=== PATIENT | female | born 1960 | race Caucasian/White ===

== ENCOUNTER → 2019-11-26 13:02 | Outpatient (BNVA) | payer OTHER, SELFPAY | PROVIDERS: PCP Internal Medicine; Referring Provider Internal Medicine; Visit Provider Physician Assistant | DX: K90.49 Malabsorption due to intolerance, not elsewhere classified (principal); Z98.84 Bariatric surgery status | CPT/HCPCS: 99214 ==

== ENCOUNTER → 2019-12-17 11:17 | Outpatient (BNVA) | payer OTHER, SELFPAY | PROVIDERS: PCP Internal Medicine; Visit Provider Surgery | DX: M79.3 Panniculitis, unspecified (principal); Z98.84 Bariatric surgery status; Z91.041 Radiographic dye allergy status; Z88.8 Allergy status to other drugs, medicaments and biological substances | CPT/HCPCS: 99212 ==

== ENCOUNTER → 2019-12-28 08:03 | Outpatient (BNVA) | payer OTHER, SELFPAY | PROVIDERS: PCP Internal Medicine; Visit Provider Dietitian, Registered | DX: Z76.89 Persons encountering health services in other specified circumstances (principal) ==

== ENCOUNTER 2019-12-31 08:47 | Outpatient (REF) | payer OTHER, SELFPAY ==
[2019-12-31 10:07] LABS: MANUAL DIFF FLAG NO
[2019-12-31 10:22] LABS: Basophils Percent Auto 0.7 % (0-2); Eosinophils Absolute Auto 0.1 X10*3/uL (0.0-0.4); Eosinophils Percent Auto 1.7 % (0-4); Hematocrit 38.3 % (37-47); Hemoglobin 12.6 g/dl (12.0-16.0); Lymphocytes Absolute Auto 1.6 X10*3/uL (1.2-4.9); Mean Corpuscular HGB Conc 32.9 g/dl (31.0-35.0); Mean Corpuscular Hemoglobin 31.7 pg (27.0-33.0); Mean Corpuscular Volume 96.2 fL (80-98); Mean Platelet Volume 9.4 fL (9.4-12.3); Monocytes Absolute Auto 0.5 X10*3/uL (0.1-1.2); Monocytes Percent Auto 11.2 % (2-11); Neutrophils Absolute Auto 1.9 X10*3/uL (2.0-8.3); Neutrophils Percent Auto 47.4 % (45-73); Platelet Count 233 X10*3/uL (160-400); Red Blood Count 3.98 X10*6/uL (4.20-5.50); Red Cell Distribution Width 13.1 % (11.0-16.0); White Blood Count 4.1 X10*3/uL (4.8-10.8)
[2019-12-31 10:58] LABS: Alanine Aminotransferase 18 U/L (0-31); Albumin Level 4.4 g/dL (3.5-5.0); Alkaline Phosphatase 91 U/L (39-117); Anion Gap 12 (12-20); Aspartate Amino Transferase 20 U/L (5-31); Bilirubin Total 0.5 mg/dL (0.0-1.0); Blood Urea Nitrogen 16 mg/dL (9-16); C Reactive Protein 0.02 mg/dL (< or = 0.50); Calcium 8.7 mg/dL (8.4-10.2); Carbon Dioxide 29 mmol/L (22-29); Chloride 103 mmol/L (96-108); Estimated Glomerular Filt Rate > 60; Glucose Fasting 82 mg/dL (60-99); Iron 140 mcg/dL (30-160); Percent Iron Saturation 46 % (15-50); Potassium 4.5 mmol/l (3.3-5.1); Sodium 139 mmol/L (135-145); Total Iron Binding Capacity 306 mcg/dL (228-428); Total Protein 6.8 g/dL (6.5-8.0); Unsaturated Iron Binding 166 ug/dL
[2019-12-31 11:16] LABS: Ferritin 65 ng/mL (10-250); TSH reflex Free T4 0.34 mIU/mL (0.32-4.0); Vitamin D 25-OH Total 31.3 ng/mL (>30)
[2019-12-31 11:17] LABS: Cholesterol 268 mg/dL; HDL Cholesterol 97 mg/dL; LDL Cholesterol Calculated 144 mg/dl; Triglycerides 136 mg/dL
[2019-12-31 11:28] LABS: Estimated Average Glucose 100 mg/dL; Folate 15.3 ng/mL (> or = 4.0); Hemoglobin A1c % 5.1 %; Vitamin B12 491 pg/mL (200-900)
[2020-01-03 19:11] LABS: PTHI 60 pg/mL (14-64)
[2020-01-03 19:12] LABS: Insulin Level Total 3.9 uIU/mL; Zinc 60 mcg/dL (60-130)
[2020-01-04 14:22] LABS: Vitamin B1 14 nmol/L (8-30)
[2020-01-05 17:32] LABS: Vitamin A 62 mcg/dL (38-98)
== END 2019-12-31 08:48 | disposition home or self-care (01) ==
LOC: HO.LAB 08:47
PROVIDERS: PCP Internal Medicine; Visit Provider Physician Assistant
DX: K90.49 Malabsorption due to intolerance, not elsewhere classified (principal); E66.01 Morbid (severe) obesity due to excess calories; I95.1 Orthostatic hypotension
CPT/HCPCS: 36415; 80053; 80061; 82306; 82607; 82728; 82746; 83036; 83525; 83540; 83970; 84425; 84443; 84590; 84630; 85025; 86140

== ENCOUNTER → 2020-02-28 08:18 | Outpatient (BNVA) | payer OTHER, SELFPAY | PROVIDERS: PCP Internal Medicine; Visit Provider Physician Assistant | DX: K90.49 Malabsorption due to intolerance, not elsewhere classified (principal); Z98.84 Bariatric surgery status | CPT/HCPCS: Q3014 ==

== ENCOUNTER → 2020-03-09 13:45 | Outpatient (BNVA) | payer OTHER, SELFPAY | PROVIDERS: PCP Internal Medicine; Visit Provider Anesthesiology | DX: M96.1 Postlaminectomy syndrome, not elsewhere classified (principal); Z98.84 Bariatric surgery status | CPT/HCPCS: 99212 ==

== ENCOUNTER 2020-03-11 12:36 | Emergency (ER) | payer OTHER, SELFPAY ==
--- NOTE | 2020-03-11 12:48 | CT_ITS ---
EXAMINATION: CT HEAD, CT CERVICAL SPINE AND CT ABDOMEN PELVIS WITHOUT CONTRAST. CLINICAL INFORMATION: Status post and syncope with head injury COMPARISON: CT brain and CT cervical spine 09/09/2019. CT abdomen and pelvis 12/19/2018 TECHNIQUE: 5 minutes and axial and reformatted 2 mm thin sagittal and axial images of brain were obtained. Axial 3 mm thin and reformatted 2 mm thin images of cervical spine were obtained. Lastly axial 5 mm thin and reformatted 3 mm thin sagittal and coronal images of abdomen and pelvis were obtained without contrast. DLP [id number]. FINDINGS: BRAIN: There is no acute intra-axial, extra-axial bleed, masses, collection or midline shift. No acute infarct in evolution. The zarate to white matter differentiation is maintained normal. The lateral ventricles are symmetrical in size and configuration without enlargement. Bone windows reveal no calvarial abnormality. Bilateral paranasal sinuses and mastoid air cells are well-aerated. CERVICAL SPINE: On sagittal reconstructed images there is maintained cervical lordosis. There is loss of C4-C5 and C5-C6 disc heights with posterior spondylosis. The craniovertebral junction is normal. There is mild C1-C2 rotary subluxation but no fracture seen. The prevertebral and paravertebral soft tissues are normal. There is widely patent. The thyroid gland is enlarged with right lobe calcification. The lung apices are clear. ABDOMEN AND PELVIS: Minimal atelectatic changes seen in the left lung base. The heart size is normal. The liver is normal size, shape and density. The gallbladder has been surgically removed. No intrahepatic ductal dilatation seen. Visualized spleen, pancreas and bilateral adrenal glands are unremarkable. There are gastric sleeve surgical changes. The small bowel loops are nondilated. Large amount of stool seen throughout the colon without any significant distention. Both kidneys are normal size, shape and position. No enhancing lesion, cyst, radiopaque calculi or hydronephrosis seen. There is a surgical staple adjacent to the left kidney upper pole likely migrated stable following GI intervention. There is significant atherosclerotic calcification of abdominal aorta without aneurysmal dilatation. No retroperitoneal mass or lymphadenopathy seen. The bladder is significantly distended up to the umbilicus Imaging through the pelvis reveals anteverted uterus. No free fluid. No abnormal pelvic mass. No abnormal pelvic or inguinal lymph nodes. Bone windows reveal degenerative disc changes with vacuum disc phenomena L4-L5 disc level with mild ventral spondylosis. No lytic process. CT/CT cervical spine wo con IMPRESSION: No acute intracranial process seen. There is rotary subluxation of the C1-C2 alignment. Mild degenerative disc changes C3 -6 and C4-C5 disc levels. Thyromegaly Moderate to significant constipation without obstruction. Gastric sleeve surgery and cholecystectomy changes are seen. Enlarged urinary bladder extending to the umbilicus.
--- NOTE | 2020-03-11 12:48 | ECG_ITS ---
Test Reason : SYNCOPE Blood Pressure : / mmHG Vent. Rate : 062 BPM Atrial Rate : 062 BPM P-R Int : 156 ms QRS Dur : 084 ms QT Int : 410 ms P-R-T Axes : -09 -12 010 degrees QTc Int : 416 ms Normal sinus rhythm Normal ECG When compared with ECG of 10-OCT-2019 14:48, No significant change was found Referred By: Esther Allen Electronically Signed By:EUSEBIA GUERIN
[2020-03-11 12:51] VITALS: BP 176/83; PULSE 71; RESP 18; TEMP 37.2; O2SAT 97; BMI 20.2
--- NOTE | 2020-03-11 12:54 | PC.NURSE ---
Addendum entered by Eamon Mcintosh 03/11/20 18:07: pt abruptly throws head up and whole body falls to the ground protecting head, no apparent headstrike or loc. pt appears to be answering questions immediately s/p fall. Original Note: this rn reviewing security tape of pt syncopal episode in waiting room. pt appears to ambulate to first nurse, then registration w smooth steady gait, then as pt turns to waiting area following registration, pt abruptly throws head up and whole body falls to ground.
[2020-03-11 13:49] LABS: Basophils Percent Auto 0.8 % (0-2); Eosinophils Percent Auto 0.8 % (0-4); Hematocrit 36.7 % (37-47); Hemoglobin 12.5 g/dl (12.0-16.0); Imm Gran Abs Auto 0.01 X10*3/uL (0.00-0.03); Imm Gran Pct Auto 0.2 % (0.0-0.4); Lymphocytes Absolute Auto 2.2 X10*3/uL (1.2-4.9); Lymphocytes Percent Auto 42.8 % (20-40); MANUAL DIFF FLAG NO; Mean Corpuscular HGB Conc 34.1 g/dl (31.0-35.0); Mean Corpuscular Volume 93.9 fL (80-98); Mean Platelet Volume 9.2 fL (9.4-12.3); Monocytes Absolute Auto 0.6 X10*3/uL (0.1-1.2); Monocytes Percent Auto 11.5 % (2-11); Neutrophils Absolute Auto 2.3 X10*3/uL (2.0-8.3); Neutrophils Percent Auto 43.9 % (45-73); Platelet Count 215 X10*3/uL (160-400); Red Blood Count 3.91 X10*6/uL (4.20-5.50); Red Cell Distribution Width 12.7 % (11.0-16.0); White Blood Count 5.2 X10*3/uL (4.8-10.8)
[2020-03-11 13:55] LABS: Prothrombin Time 11.6 SEC (10.8-13.0)
[2020-03-11] MEDS: oxyCODONE HCl Immed Release 5 MG TABLET PO ×3 (14:02→18:39)
[2020-03-11] MEDS: 0.9 % Sodium Chloride 1,000 ML 999 ML IVCONT (14:05)
[2020-03-11 14:21] LABS: Alanine Aminotransferase 18 U/L (0-31); Albumin Level 4.5 g/dL (3.5-5.0); Alkaline Phosphatase 85 U/L (39-117); Anion Gap 14 (12-20); Aspartate Amino Transferase 20 U/L (5-31); Bilirubin Direct < 0.2 mg/dL (0.0-0.5); Bilirubin Total 0.4 mg/dL (0.0-1.0); Blood Urea Nitrogen 14 mg/dL (9-16); Calcium 9.1 mg/dL (8.4-10.2); Carbon Dioxide 28 mmol/L (22-29); Chloride 104 mmol/L (96-108); Creatinine Clr Calc Pharmacy 79.7; Estimated Glomerular Filt Rate > 60; Glucose Random 90 mg/dL (60-115); Magnesium 2.4 mg/dL (1.6-2.6); Potassium 4.1 mmol/l (3.3-5.1); Sodium 142 mmol/L (135-145)
--- NOTE | 2020-03-11 14:22 | ED_ITS ---
HPI - Syncope General Chief Complaint: Vaginal Bleeding Stated Complaint: vaginal bleeding Time Seen by Provider: 03/11/20 12:43 Source: patient Mode of arrival: wheelchair Limitations: no limitations History of Present Illness HPI narrative: 59yoF c PMHx orthostatic hypotension, syncope and collapse, herpes and depression who had a syncopal episode and collapse out in the waiting room when she was checking in for vaginal bleeding since last night. She did hit her head and had a few seconds of loss of consciousness. Although security called quickly and I ran out to the waiting room patient was laying down on her back moaning and groaning reporting that her head was hurting from this syncopy and her right lower quadrant of her abdomen since she started vaginal bleeding last night. Therefore I placed a C-collar on the patient and the patient was placed on a backboard and then lifted her onto a stretcher. We brought her into room 13 into the emergency department. I performed a neuro exam and patient is neuro intact bilaterally and distally on all 4 extremities. Is alert and oriented x3. She reports that she has a chronic history of syncopal episodes due to rapid weight loss in 2019 of over 100 lb therefore her doctors have told her that most likely the syncopal episodes are from the rapid weight loss. She reports she was checking in for vaginal bleeding with clots since last night and right suprapubic abdominal pain. At this time only is complaining of headache where she hit the back of her head out in the emergency department, and right suprapubic abdominal pain. Denies any dizziness, changes in vision, nausea/vomiting, chest pain or shortness of breath, palpitations, extremity ed angel luis, back pain, diarrhea or constipation or any other symptoms complaints or concerns at this time. Related Data Home Medications Medication Instructions Recorded Confirmed calcium citrate 315 mg 1 tab PO BID 11/20/19 03/09/20 calcium-vitamin D3 6.25 mcg (250 unit) tablet clonazepam 1 mg tablet 1 mg PO TID 11/20/19 03/09/20 fluticasone furoate 200 1 inh INHALATION DAILY 11/20/19 03/09/20 mcg-vilanterol 25 mcg/dose inhalation powder fluticasone propionate 50 1 spray INTRANASAL DAILY 11/20/19 03/09/20 mcg/actuation nasal spray,suspension gabapentin 600 mg tablet 600 mg PO BID 11/20/19 03/09/20 methylcellulose (with sugar) oral 1 tbsp PO DAILY 11/20/19 03/09/20 powder pantoprazole 40 mg tablet,delayed 40 mg PO DAILY 11/20/19 03/09/20 release paroxetine HCl 40 mg tablet 40 mg PO DAILY 11/20/19 03/09/20 quetiapine 200 mg tablet 100 mg PO BEDTIME tab 12/30/19 03/09/20 Previous Rx's Medication Instructions Recorded lidocaine 5 % topical patch 1 patch TOPICAL DAILY #30 ea 12/20/19 valacyclovir 500 mg tablet 500 mg PO BID #180 tab 12/23/19 mecobalamin (vitamin B12) 1,000 1,000 mcg PO DAILY #30 tab 01/27/20 mcg chewable tablet meloxicam 7.5 mg tablet 7.5 mg PO DAILY #90 tab 02/03/20 azithromycin 250 mg tablet See Rx Instructions PO .COMPLEX #6 03/06/20 tab fciwjhdagt-xpdhibotdsflw-shdpcffa 1 tab PO Q4H PRN #30 tab 03/06/20 50 mg-325 mg-40 mg tablet valacyclovir 1 gram tablet 1,000 mg PO Q8H #90 tab 03/06/20 oxycodone-acetaminophen 5 mg-325 1 tab PO TID PRN 30 Days #90 tab 03/09/20 mg tablet Allergies Allergy/AdvReac Type Severity Reaction Status Date / Time Iodinated Contrast Media Allergy Unknown HIVES Verified 12/30/19 09:29 [Iodinated Contrast Media - IV Dye] ketorolac [From Toradol] Allergy unknown Verified 12/30/19 09:29 Review of Systems Review of Systems: Constitutional : No Fever, No Chills, No Night Sweats, No Fatigue, No Malaise ENT/Mouth : No Ear Pain, No Nasal Congestion, No Sinus Pain, No sore throat, No Rhinorrhea Eyes: No Eye Pain, No Swelling, No Redness, No Foreign Body, No Discharge, No Vision Changes Cardiovascular : No Chest Pain, No SOB, No Dyspnea on Exertion, No Orthopnea, No Palpitations Respiratory : No Cough, No Sputum, No Wheezing, No Dyspnea Gastrointestinal : No Nausea, No Vomiting, No Diarrhea, No Constipation, + abdominal Pain, No Hematochezia, No Melena Genitourinary : + irregular bleeding, No Dysuria, No Urinary Frequency, No Urinary Incontinence, No Urgency, No Flank Pain Musculoskeletal : No joint pain, No Myalgias Skin : No lacerations Neuro : + Syncopy/Head injury/LOC, + headache, No Numbness, No Paresthesias, No Dizziness Yes all other systems are reviewed and are negative FOR[facility]LY [facility] Past Medical History Attestation statement: The following information was validated with the patient. Medical History Allergic rhinitis Asthma Bunion of left foot Chronic sinusitis Colon polyps Depression Herpes Hypotension Labral tear of right hip joint Malabsorption due to intolerance, not elsewhere classified Malabsorption due to intolerance, not elsewhere classified Migraines Neck pain Orthostatic hypotension Postconcussion syndrome Postlaminectomy syndrome Spinal stenosis Syncope and collapse Surgical History H/O colonoscopy H/O endoscopy H/O laminectomy History of appendectomy S/P bilateral foot surgery S/P laparoscopic sleeve gastrectomy S/P tonsillectomy Status post bariatric surgery Family History Family History Father No problems noted. Mother Cervical spine tumor Brother No problems noted. Brother No problems noted. Brother No problems noted. Brother No problems noted. Sister No problems noted. Son No problems noted. Daughter No problems noted. Social History Social History Alcohol intake: never Smoking Status: Never smoker Substance Use Type: Marijuana Advance Directives: No Advance Directives Information Provided: No Physical Exam Vital Signs: Vital Signs: Last Vital Signs Temp 98.9 F 03/11/20 12:51 Pulse 66 03/11/20 16:00 Resp 17 03/11/20 16:00 BP 176/83 H 03/11/20 12:51 Pulse Ox 97 03/11/20 16:00 Body Mass Index 20.2 Vital signs have been reviewed as normal and appeared to be correct. Blood pressure hypertensive. Heart rate normal. Respiration rate normal. Temperature normal. Oxygen saturation normal. Appearance: Alert. Oriented X3 despite syncopy in waiting room in ED. Otherwise No acute distress. Head: Patient tender to palpation of the septal aspect where she syncopized and hit her head in the waiting room otherwise Normal external exam. Normocephalic. Atraumatic. Able to rotate head bilaterally. No abrasion/laceration/hematoma/ecchymosis or foreign bodies noted at this time. Eyes: PERRLA. EOMI. No nystagmus noted. Conjunctiva and sclera normal. Eyelids n ormal. Corneal reflex normal. ENT: EAC normal. TM's Normal. No septal hematoma or hemotympanum noted. Hearing normal. Pharynx normal. Uvula midline. tongue midline. Moist mucous membranes. No trismus noted. No drooling noted. No muffled voice noted. Neck: C-collar in place. Normal inspection. Neck supple. No adenopathy. Thyroid Normal. No meningeal signs. No neck mass noted. CVS: Normal heart rate and rhythm. Heart sound normal. No murmurs noted. Pulses normal throughout. Respiratory: No respiratory distress. Painless inspiration. Breath sounds normal. No wheezes/rales/rhonchi noted. Chest nontender. No accessory muscle usage noted or decreased air movement noted. Abdomen: Soft and tender to palpation of right suprapubic aspect with guarding. Bowel sounds normal in all 4 quadrants. No distention noted. No organomegaly noted. No visible injury noted. Back: Full range of motion noted. Negative Capone's. Negative psoas. Negative obturator's. Negative Rovsing's. Skin: Skin warm and dry. Normal skin color. Normal skin turgor. No rashes/lesions/lacerations noted. Extremities: No lower extremity edema. Extremities exhibit normal range of motion. Extremities nontender. Able to shrug shoulders bilaterally and keep up against resistance. Neuro: Oriented X 3. No motor deficit. No sensory deficit. Reflexes normal. Moving all extremities. No focal motor deficits. Cranial nerves II-XI intact bilaterally. Facial strength normal. Normal cognition. Speech normal. Strength 5/5 throughout. No pronator drift. No tremor noted. No fasciculations noted. Muscle tone normal throughout. No asterixis noted. Fbfpjf-tb-xaut test normal. Heel to hernandez test normal. No rigidity noted. Course Course Course Narrative: 59yoF c PMHx orthostatic hypotension, syncope and collapse, herpes and depression who had a syncopal episode and collapse out in the waiting room when she was checking in for vaginal bleeding since last night. She did hit her head and had a few seconds of loss of consciousness. Patient was evaluated by myself. Is neuro intact. Alert and oriented x3. Immediately placed in a cervical collar. Placed on a backboard and placed on a stretcher brought into the emergency room for further evaluation and treatment. - On exam Is alert and oriented x3. No focal neuro deficits noted. Patient moving all extremities. Tender to palpation of the occipatal aspect of the scalp. Patient does not have any obvious deformities of the scalp. Tenderness to palpation of right suprapubic aspect. - Plan: Labs, EKG, CT scan of brain/cervical spine, CT scan of abdomen and pelvis with IV contrast then perform a vaginal exam once the patient's cervical spine is cleared. Provided Percocet and re-evaluate. Reevaluation(s) Reevaluation #1: - Labs WNL. CT scan of brain/cervical spine revealed chronic changes no acute processes noted. CT scan of abdomen and pelvis with IV contrast revealed moderate to significant constipation without obstruction. Gastric sleeve surgery and cholecystectomy changes are seen. In the report it is noted that there is a surgical staple adjacent to the left kidney upper pole likely migrated stable following GI intervention. I explained this to the pa tient she did not know about this therefore I printed out a copy of the CT scan results and gave it to the patient. Otherwise patient has a enlarged urinary bladder extending to the umbilicus this was prior to her urinating. - on exam patient does not have any active vaginal bleeding at this time. - will consult with the patient's GI specialist Dr. Caal for further evaluation and treatment. Time: 16:41 Reevaluation #2: - Still awaiting call from GI specialist Dr. Caal. Sign out to JEREMIAH Jones at this time. Time: 18:02 [facility] - Syncope Medical Records Attestation: I reviewed the patient's medical records. Lab Data Attestation: I reviewed the patient's lab results. Result diagrams: 03/11/20 13:44 03/11/20 13:44 Labs: Lab Results 03/11/20 03/11/20 03/11/20 Range/Units 13:44 13:44 13:44 WBC 5.2 (4.8-10.8) X10*3/uL RBC 3.91 L (4.20-5.50) X10*6/uL Hgb 12.5 (12.0-16.0) g/dl Hct 36.7 L (37-47) % MCV 93.9 (80-98) fL MCH 32.0 (27.0-33.0) pg MCHC 34.1 (31.0-35.0) g/dl RDW 12.7 (11.0-16.0) % Plt Count 215 (160-400) X10*3/uL MPV 9.2 L (9.4-12.3) fL Immature Gran % (Auto) 0.2 (0.0-0.4) % Neut % (Auto) 43.9 L (45-73) % Lymph % (Auto) 42.8 H (20-40) % [place] % (Auto) 11.5 H (2-11) % Eos % (Auto) 0.8 (0-4) % Baso % (Auto) 0.8 (0-2) % Lymph # (Auto) 2.2 (1.2-4.9) X10*3/uL [place] # (Auto) 0.6 (0.1-1.2) X10*3/uL Eos # (Auto) 0.0 (0.0-0.4) X10*3/uL Baso # (Auto) 0.0 (0.0-0.2) X10*3/uL Abs Immat Gran (auto) 0.01 (0.00-0.03) X10*3/uL Absolute Neuts (auto) 2.3 (2.0-8.3) X10*3/uL Absolute Nucleated RBC 0.000 (0.0-0.012) X10*3/uL Nucleated RBC % (auto) 0.0 (0.0-0.2) /100WBC PT 11.6 (10.8-13.0) SEC INR 1.0 (0.9-1.1) Sodium 142 (135-145) mmol/L Potassium 4.1 (3.3-5.1) mmol/l Chloride 104 (96-108) mmol/L Carbon Dioxide 28 (22-29) mmol/L Anion Gap 14 (12-20) BUN 14 (9-16) mg/dL Creatinine 0.71 (0.5-1.4) mg/dL Estim Creat Clear Calc 79.7 Estimated GFR > 60 Random Glucose 90 (60-115) mg/dL Calcium 9.1 (8.4-10.2) mg/dL Magnesium 2.4 (1.6-2.6) mg/dL Total Bilirubin 0.4 (0.0-1.0) mg/dL Direct Bilirubin < 0.2 (0.0-0.5) mg/dL AST 20 (5-31) U/L ALT 18 (0-31) U/L Alkaline Phosphatase 85 (39-117) U/L Troponin I High Sens (<3.5-17.0) ng/L Total Protein 7.0 (6.5-8.0) g/dL Albumin 4.5 (3.5-5.0) g/dL Urine Color Urine Appearance Urine pH (5.0-8.0) Ur Specific [place] (1.005-1.025) Urine Protein (NEG-TRACE) MG/DL Urine Glucose (UA) (NEG) MG/DL Urine Ketones (NEG) MG/DL Urine Blood (NEG) Urine Nitrite (NEG) Ur Leukocyte Esterase (NEG) Urine RBC (0) /HPF Urine WBC (0-4) /HPF Ur Squamous Epith Cells /LPF Urine Bacteria /LPF Coronavirus (PCR) (Negative) Influenza Type A (PCR) (Negative) Influenza Type B (PCR) (Negative) RSV RNA Qual (PCR) (Negative) 03/11/20 03/11/20 03/11/20 Range/Units 13:44 13:44 15:23 WBC (4.8-10.8) X10*3/uL RBC (4.20-5.50) X10*6/uL Hgb (12.0-16.0) g/dl Hct (37-47) % MCV (80-98) fL MCH (27.0-33.0) pg MCHC (31.0-35.0) g/dl RDW (11.0-16.0) % Plt Count (160-400) X10*3/uL MPV (9.4-12.3) fL Immature Gran % (Auto) (0.0-0.4) % Neut % (Auto) (45-73) % Lymph % (Auto) (20-40) % [place] % (Auto) (2-11) % Eos % (Auto) (0-4) % Baso % (Auto) (0-2) % Lymph # (Auto) (1.2-4.9) X10*3/uL [place] # (Auto) (0.1-1.2) X10*3/uL Eos # (Auto) (0.0-0.4) X10*3/uL Baso # (Auto) (0.0-0.2) X10*3/uL Abs Immat Gran (auto) (0.00-0.03) X10*3/uL Absolute Neuts (auto) (2.0-8.3) X10*3/uL Absolute Nucleated RBC (0.0-0.012) X10*3/uL Nucleated RBC % (auto) (0.0-0.2) /100WBC PT (10.8-13.0) SEC INR (0.9-1.1) Sodium (135-145) mmol/L Potassium (3.3-5.1) mmol/l Chloride (96-108) mmol/L Carbon Dioxide (22-29) mmol/L Anion Gap (12-20) BUN (9-16) mg/dL Creatinine (0.5-1.4) mg/dL Estim Creat Clear Calc Estimated GFR Random Glucose (60-115) mg/dL Calcium (8.4-10.2) mg/dL Magnesium (1.6-2.6) mg/dL Total Bilirubin (0.0-1.0) mg/dL Direct Bilirubin (0.0-0.5) mg/dL AST (5-31) U/L ALT (0-31) U/L Alkaline Phosphatase (39-117) U/L Troponin I High Sens < 3.5 (<3.5-17.0) ng/L Total Protein (6.5-8.0) g/dL Albumin (3.5-5.0) g/dL Urine Color STRAW Urine Appearance CLEAR Urine pH 7.0 (5.0-8.0) Ur Specific [place] <= 1.005 (1.005-1.025) Urine Protein NEG (NEG-TRACE) MG/DL Urine Glucose (UA) NEG (NEG) MG/DL Urine Ketones NEG (NEG) MG/DL Urine Blood 1+ H (NEG) Urine Nitrite NEG (NEG) Ur Leukocyte Esterase NEG (NEG) Urine RBC 0-2 (0) /HPF Urine WBC 0 (0-4) /HPF Ur Squamous Epith Cells NONE /LPF Urine Bacteria NONE /LPF Coronavirus (PCR) NEGATIVE (Negative) Influenza Type A (PCR) NEGATIVE (Negative) Influenza Type B (PCR) NEGATIVE (Negative) RSV RNA Qual (PCR) NEGATIVE (Negative) Imaging Data CT scan of brain/cervical spine/abdomen and pelvis: Attestation: I personally reviewed and interpreted this imaging study as follows: Radiologist's impression: FINDINGS: BRAIN: There is no acute intra-axial, extra-axial bleed, masses, collection or midline shift. No acute infarct in evolution. The zarate to white matter differentiation is maintained normal. The lateral ventricles are symmetrical in size and configuration without enlargement. Bone windows reveal no calvarial abnormality. Bilateral paranasal sinuses and mastoid air cells are well-aerated. CERVICAL SPINE: On sagittal reconstructed images there is maintained cervical lordosis. There is loss of C4-C5 and C5-C6 disc heights with posterior spondylosis. The craniovertebral junction is normal. There is mild C1-C2 rotary subluxation but no fracture seen. The prevertebral and paravertebral soft tissues are normal. There is widely patent. The thyroid gland is enlarged with right lobe calcification. The lung apices are clear. ABDOMEN AND PELVIS: Minimal atelectatic changes seen in the left lung base. The heart size is normal. The liver is normal size, shape and density. The gallbladder has been surgically removed. No intrahepatic ductal dilatation seen. Visualized spleen, pancreas and bilateral adrenal glands are unremarkable. There are gastric sleeve surgical changes. The small bowel loops are nondilated. Large amount of stool seen throughout the colon without any significant distention. Both kidneys are normal size, shape and position. No enhancing lesion, cyst, radiopaque calculi or hydronephrosis seen. There is a surgical staple adjacent to the left kidney upper pole likely migrated stable following GI intervention. There is significant atherosclerotic calcification of abdominal aorta without aneurysmal dilatation. No retroperitoneal mass or lymphadenopathy seen. The bladder is significantly distended up to the umbilicus Imaging through the pelvis reveals anteverted uterus. No free fluid. No abnormal pelvic mass. No abnormal pelvic or inguinal lymph nodes. Bone windows reveal degenerative disc changes with vacuum disc phenomena L4-L5 disc level with mild ventral spondylosis. No lytic process. CT/CT head/brain wo con IMPRESSION: No acute intracranial process seen. There is rotary subluxation of the C1-C2 alignment. Mild degenerative disc changes C3 -6 and C4-C5 disc levels. Thyromegaly Moderate to significant constipation without obstruction. Gastric sleeve surgery and cholecystectomy changes are seen. Enlarged urinary bladder extending to the umbilicus. ECG Data Attestation: I personally reviewed and interpreted this ECG as follows: ECG interpretation date: 03/11/20 ECG interpretation time: 13:07 Interpretation: Normal sinus rhythm with a ventricular rate of 62 with a normal NV interval normal QRS duration normal QT/QTC interval. No acute ischemic changes noted. Similar compared to prior 10/10/2019. Critical Care Time Critical Care Time Critical Care Time: Yes Total Critical Care Time: 60 Attestation: I personally attest to this time spent taking care of the patient Discharge Plan Discharge Clinical Impression: Syncope and collapse, Abnormal vaginal bleeding, Abnormal CT of the abdomen Prescriptions: No Action lidocaine 5 % adhesive patch,medicated 1 patch topical DAILY Qty: 30 RF: 6 valacyclovir 500 mg tablet 500 mg PO BID Qty: 180 RF: 3 mecobalamin (vitamin B12) 1,000 mcg tablet,chewable 1,000 mcg PO DAILY Qty: 30 RF: 5 meloxicam 7.5 mg tablet 7.5 mg PO DAILY Qty: 90 RF: 0 azithromycin 250 mg tablet See Rx Instructions PO .COMPLEX Qty: 6 RF: 0 valacyclovir [Valtrex] 1 gram tablet 1,000 mg PO Q8H Qty: 90 RF: 1 yffcjjdcsk-iwggshcglafog-pyeg 50-325-40 mg tablet 1 tab PO Q4H PRN (Reason: pain) Qty: 30 RF: 2 clonazepam 1 mg tablet 1 mg PO TID RF: 0 gabapentin 600 mg tablet 600 mg PO BID RF: 0 paroxetine HCl 40 mg tablet 40 mg PO DAILY RF: 0 fluticasone propionate 50 mcg/actuation spray,suspension 1 spray intranasal DAILY RF: 0 calcium citrate-vitamin D3 315 mg- 250 unit tablet 1 tab PO BID RF: 0 Citrucel (sucrose) Powder 1 tbsp PO DAILY RF: 0 pantoprazole 40 mg tablet,delayed release (DR/EC) 40 mg PO DAILY RF: 0 Breo Ellipta 200-25 mcg/dose blister with device 1 inh inhalation DAILY RF: 0 quetiapine 200 mg tablet 100 mg PO BEDTIME RF: 0 oxycodone-acetaminophen [Percocet] 5-325 mg tablet 1 tab PO TID PRN (Reason: pain) 30 Days Qty: 90 RF: 0
[2020-03-11 14:27] LABS: Troponin-I High Sensitivity < 3.5 ng/L (<3.5-17.0)
[2020-03-11 14:32] LABS: Influenza A PCR NEGATIVE (Negative); Influenza B PCR NEGATIVE (Negative); Resp Syncy Virus RNA Qual PCR NEGATIVE (Negative); SARS COV2 PCR INHOUSE NEGATIVE (Negative)
[2020-03-11] MEDS: diphenhydrAMINE HCL 50 MG/ML VIAL IVPUSH (14:36)
[2020-03-11] MEDS: iohexoL 350 MG/ML 100 ML INFUS..BTL IV (15:20)
[2020-03-11 15:46] LABS: Glucose Urine UA NEG (NEG); Leukocyte Esterase Urine NEG (NEG); Nitrite Urine NEG (NEG); Specific Gravity - Urine <= 1.005 (1.005-1.025); Urine Blood 1+ (NEG); Urine Ketones NEG (NEG); Urine Protein NEG (NEG-TRACE)
[2020-03-11 15:48] LABS: Appearance Urine CLEAR; Color Urine STRAW
[2020-03-11 15:55] LABS: RBC Urine 0-2 /HPF (0); WBC Urine 0 /HPF (0-4)
[2020-03-11 16:00] VITALS: PULSE 66; RESP 17; O2SAT 97
[2020-03-11] MEDS: Butalb/Acetamin/Caff 50/325/40 TABLET 2 TAB PO (16:02)
[2020-03-11 18:00] VITALS: BP 135/64; PULSE 64
[2020-03-11 18:26] VITALS: PULSE 64; O2SAT 97
[2020-03-11 18:28] VITALS: BP 135/64; PULSE 64
[2020-03-11 18:29] VITALS: BP 114/58; BP 99/54; PULSE 62; PULSE 68
== END 2020-03-11 18:57 | disposition home or self-care (01) ==
PROVIDERS: Physician Assistant Medical; Emergency Provider Internal Medicine; PCP Internal Medicine
DX: S06.9X9A Unspecified intracranial injury with loss of consciousness of unspecified duration, initial encounter (principal); R55 Syncope and collapse; M54.2 Cervicalgia; G44.309 Post-traumatic headache, unspecified, not intractable; N93.9 Abnormal uterine and vaginal bleeding, unspecified; R10.2 Pelvic and perineal pain; W01.190A Fall on same level from slipping, tripping and stumbling with subsequent striking against furniture, initial encounter; Y93.9 Activity, unspecified; Y92.009 Unspecified place in unspecified non-institutional (private) residence as the place of occurrence of the external cause; Y99.9 Unspecified external cause status; Z20.822 Contact with and (suspected) exposure to COVID-19; Z79.899 Other long term (current) drug therapy
CPT/HCPCS: 0241U; 36415; 70450; 72125; 74177; 80048; 80076; 81001; 83735; 84484; 85025; 85610; 93005; 96361; 96374; 99285; 99291; J1200; Q9967

== ENCOUNTER → 2020-03-14 09:47 | Outpatient (BNVA) | payer OTHER, SELFPAY | PROVIDERS: PCP Internal Medicine; Visit Provider Internal Medicine | DX: R55 Syncope and collapse (principal); I95.1 Orthostatic hypotension; Z98.84 Bariatric surgery status | CPT/HCPCS: 99212 ==

== ENCOUNTER 2020-03-17 08:25 | Outpatient (REF) | payer OTHER, SELFPAY ==
[2020-03-18 13:19] LABS: BV Int Neg Control Negative (Negative); BV Int Pos Control Positive (Positive)
[2020-03-19 02:17] LABS: C. trachomatis RNA TMA NOT DETECTED (NOT DETECTED); N. gonorrhoeae RNA TMA NOT DETECTED (NOT DETECTED)
[2020-03-22 06:02] LABS: HPV mRNA E6/E7 rflx Not Detected (Not Detected)
== END 2020-03-17 08:26 | disposition home or self-care (01) ==
LOC: HO.LAB 08:25
PROVIDERS: PCP Internal Medicine; Visit Provider Advanced Practice Midwife
DX: N93.9 Abnormal uterine and vaginal bleeding, unspecified (principal); N89.8 Other specified noninflammatory disorders of vagina; N84.1 Polyp of cervix uteri
CPT/HCPCS: 36415; 57500; 87480; 87491; 87510; 87591; 87624; 87660; 88142; 88305; 99212

== ENCOUNTER → 2020-03-21 08:59 | Outpatient (BNVA) | payer OTHER, SELFPAY | PROVIDERS: PCP Internal Medicine; Visit Provider Physician Assistant | DX: R21 Rash and other nonspecific skin eruption (principal); K90.49 Malabsorption due to intolerance, not elsewhere classified; Z98.84 Bariatric surgery status | CPT/HCPCS: 99212 ==

== ENCOUNTER → 2020-03-22 08:31 | Outpatient (BNVA) | payer OTHER, SELFPAY | PROVIDERS: PCP Internal Medicine; Visit Provider Nurse Practitioner Family | DX: M96.1 Postlaminectomy syndrome, not elsewhere classified (principal); Z79.899 Other long term (current) drug therapy | CPT/HCPCS: 99212 ==

== ENCOUNTER 2020-03-29 10:49 | Outpatient (REF) | payer OTHER, SELFPAY ==
--- NOTE | ~2020-03-29 | US_ITS ---
EXAMINATION: PELVIC ULTRASOUND CLINICAL INFORMATION: Abnormal bleeding COMPARISON: Previous exams most recent February 2018 TECHNIQUE: Transabdominal and transvaginal pelvic ultrasound was performed. Transvaginal exam was performed for better visualization of the uterus and ovaries. FINDINGS: The uterus is anteverted and measures 5.8 x 2.9 x 3.5 cm in dimension. No focal uterine lesion is seen. Endometrial thickness is normal measuring 0.2 cm. There are nabothian cysts in the cervix. The right ovary is seen transabdominally only and is normal appearing. The right ovary measures 1.8 x 1.4 x 1.6 cm. The left ovary is not seen. There is a small amount of fluid in the pelvis. US/US transvaginal IMPRESSION: Normal-appearing uterus. Normal thickness endometrium. Normal-appearing right ovary. Left ovary not seen.
--- NOTE | ~2020-03-29 | US_ITS ---
EXAMINATION: PELVIC ULTRASOUND CLINICAL INFORMATION: Abnormal bleeding COMPARISON: Previous exams most recent February 2018 TECHNIQUE: Transabdominal and transvaginal pelvic ultrasound was performed. Transvaginal exam was performed for better visualization of the uterus and ovaries. FINDINGS: The uterus is anteverted and measures 5.8 x 2.9 x 3.5 cm in dimension. No focal uterine lesion is seen. Endometrial thickness is normal measuring 0.2 cm. There are nabothian cysts in the cervix. The right ovary is seen transabdominally only and is normal appearing. The right ovary measures 1.8 x 1.4 x 1.6 cm. The left ovary is not seen. There is a small amount of fluid in the pelvis. US/US pelvic complete IMPRESSION: Normal-appearing uterus. Normal thickness endometrium. Normal-appearing right ovary. Left ovary not seen.
== END 2020-03-29 10:50 | disposition home or self-care (01) ==
LOC: HO.US 10:49
PROVIDERS: Visit Provider Advanced Practice Midwife
DX: N93.9 Abnormal uterine and vaginal bleeding, unspecified (principal)
CPT/HCPCS: 76830; 76856

== ENCOUNTER → 2020-04-11 08:09 | Outpatient (BNVA) | payer OTHER, SELFPAY | PROVIDERS: PCP Internal Medicine; Visit Provider Physician Assistant ==

== ENCOUNTER → 2020-04-12 11:36 | Outpatient (BNVA) | payer OTHER, SELFPAY | PROVIDERS: PCP Internal Medicine; Visit Provider Advanced Practice Midwife | DX: M79.3 Panniculitis, unspecified (principal); L98.7 Excessive and redundant skin and subcutaneous tissue; N93.9 Abnormal uterine and vaginal bleeding, unspecified; Z71.2 Person consulting for explanation of examination or test findings; Z79.899 Other long term (current) drug therapy | CPT/HCPCS: 99212; Q3014 ==

== ENCOUNTER 2020-04-15 12:34 | Outpatient (REF) | payer OTHER, SELFPAY ==
--- NOTE | ~2020-04-15 | MM_ITS ---
EXAMINATION: MM SCREENING DIGITAL BREAST TOMOSYNTHESIS, BILATERAL CLINICAL INFORMATION: Screening. Asymptomatic. The lifetime risk of breast cancer based on the Tyrer-Cuzick Model is 5%. COMPARISON: Mammography: 05/20/2018, outside mammography 09/20/2016, 09/19/2015 ([place]). TECHNIQUE: Digital breast tomosynthesis is performed in both the craniocaudal and mediolateral oblique views along with computer-aided detection (CAD). Synthesized 2D images are generated from the tomosynthesis. FINDINGS: There are scattered areas of fibroglandular density (ACR BI-RADS breast composition Category b). There are no significant masses, abnormal calcifications, or other abnormalities. Parenchymal pattern is similar to prior exams. The axilla and skin contours are unremarkable. MM/MM tomosynthesis screening BI IMPRESSION: No mammographic evidence of malignancy. ASSESSMENT: BI-RADS 1: Negative RECOMMENDATION: Routine annual mammography screening. This patient's information was entered into a reminder system with a target due date for their next mammogram.
== END 2020-04-15 12:35 | disposition home or self-care (01) ==
LOC: HO.MAMMO 12:34
PROVIDERS: Visit Provider Advanced Practice Midwife
DX: Z12.31 Encounter for screening mammogram for malignant neoplasm of breast (principal)
CPT/HCPCS: 77063; 77067

== ENCOUNTER → 2020-04-18 08:15 | Outpatient (BNVA) | payer OTHER, SELFPAY | PROVIDERS: PCP Internal Medicine; Visit Provider Dietitian, Registered ==

== ENCOUNTER → 2020-04-19 08:18 | Outpatient (BNVA) | payer OTHER, SELFPAY | PROVIDERS: PCP Internal Medicine; Visit Provider Nurse Practitioner Family | DX: M96.1 Postlaminectomy syndrome, not elsewhere classified (principal); Z79.899 Other long term (current) drug therapy | CPT/HCPCS: 99212 ==

== ENCOUNTER → 2020-05-19 08:01 | Outpatient (BNVA) | payer OTHER, SELFPAY | PROVIDERS: PCP Internal Medicine; Visit Provider Nurse Practitioner Family | DX: M96.1 Postlaminectomy syndrome, not elsewhere classified (principal) | CPT/HCPCS: 99212 ==

== ENCOUNTER → 2020-05-30 10:13 | Outpatient (BNVA) | payer OTHER, SELFPAY | PROVIDERS: PCP Internal Medicine; Visit Provider Surgery | DX: M79.3 Panniculitis, unspecified (principal) | CPT/HCPCS: Q3014 ==

== ENCOUNTER → 2020-06-06 08:01 | Outpatient (BNVA) | payer OTHER, SELFPAY | PROVIDERS: PCP Internal Medicine; Visit Provider Nurse Practitioner Family | DX: R55 Syncope and collapse (principal); I95.1 Orthostatic hypotension; Z98.84 Bariatric surgery status; M96.1 Postlaminectomy syndrome, not elsewhere classified | CPT/HCPCS: 99212 ==

== ENCOUNTER 2020-06-08 08:46 | Inpatient (IN) | payer OTHER, SELFPAY ==
[2020-06-01 09:46] VITALS: BMI 20.2
[2020-06-02 15:43] LABS: MANUAL DIFF FLAG NO
[2020-06-02 15:51] LABS: Basophils Percent Auto 0.6 % (0-2); Eosinophils Absolute Auto 0.1 X10*3/uL (0.0-0.4); Eosinophils Percent Auto 1.9 % (0-4); Hematocrit 38.4 % (37-47); Hemoglobin 12.8 g/dl (12.0-16.0); Imm Gran Abs Auto 0.02 X10*3/uL (0.00-0.03); Imm Gran Pct Auto 0.4 % (0.0-0.4); Lymphocytes Absolute Auto 2.6 X10*3/uL (1.2-4.9); Mean Corpuscular HGB Conc 33.3 g/dl (31.0-35.0); Mean Platelet Volume 9.5 fL (9.4-12.3); Monocytes Absolute Auto 0.5 X10*3/uL (0.1-1.2); Monocytes Percent Auto 8.7 % (2-11); Neutrophils Absolute Auto 1.9 X10*3/uL (2.0-8.3); Neutrophils Percent Auto 37.4 % (45-73); Platelet Count 229 X10*3/uL (160-400); Red Cell Distribution Width 12.1 % (11.0-16.0); White Blood Count 5.2 X10*3/uL (4.8-10.8)
[2020-06-02 15:52] LABS: Prothrombin Time 11.5 SEC (10.8-13.0)
[2020-06-02 15:54] LABS: Partial Thromboplastin Time 32.2 SEC (24.1-38.0)
[2020-06-02 16:10] LABS: Alanine Aminotransferase 16 U/L (0-31); Albumin Level 4.7 g/dL (3.5-5.0); Alkaline Phosphatase 82 U/L (39-117); Anion Gap 11 (12-20); Aspartate Amino Transferase 19 U/L (5-31); Bilirubin Total 0.3 mg/dL (0.0-1.0); Blood Urea Nitrogen 19 mg/dL (9-16); C Reactive Protein 0.02 mg/dL (< or = 0.50); Calcium 9.5 mg/dL (8.4-10.2); Carbon Dioxide 31 mmol/L (22-29); Chloride 104 mmol/L (96-108); Creatinine Clr Calc Pharmacy 76.6; Estimated Glomerular Filt Rate > 60; Glucose Random 96 mg/dL (60-115); Potassium 4.6 mmol/L (3.3-5.1); Sodium 141 mmol/L (135-145); Total Protein 7.1 g/dL (6.5-8.0)
--- NOTE | 2020-06-07 18:56 | MHC.SHP ---
Pre-Procedural Eval Section A The patient is an INPATIENT: Yes The History & Physical has been completed within 30 days and I have reviewed it.: Yes Section B Chief Complaint: panniculitis Details of Present Illness: panniculitis Relevant Family History (Specify if Yes): No Relevant Social History: None Present Medications: see Short Stay Collaborative assessment Medical History: No relevant PMH History of Previous Operations: Relevant previous surgery/procedure and date(s) (sleeve gastrectomy) Allergies: Allergies Allergy/AdvReac Type Severity Reaction Status Date / Time Iodinated Contrast Media Allergy Intermediate HIVES Verified 06/06/20 10:23 [Iodinated Contrast Media - IV Dye] ketorolac [From Toradol] Allergy Intermediate localized Verified 06/06/20 10:23 redness/swelling Review of Systems Sugical H&P ROS: Negative: Constitution, Cardiovascular, Respiratory, Neurological, Psychiatric, Hem-Onc, Allergic/Immunologic, Gastrointestinal, Genitourinary, Musculoskeletal, Integumentary, Endocrine and Eyes/Ears/Nose/Throat Exam Surgical H&P Exam: Normal: HEENT, Normal: Heart, Normal: Lungs, Normal: Extremities, Normal: Abdomen, Normal: Skin and Normal: Neurological Plan Diagnosis/Plan: Unchanged I have reviewed the history and physical and performed a pertinent physical examination on my patient. No changes have occurred unless specified.
[2020-06-08] VITALS (18 sets, daily range): BP systolic 94–161; BP diastolic 41–69; PULSE 64–114; RESP 11–20; TEMP 36.1–37.1; O2SAT 94–100
--- NOTE | 2020-06-08 09:07 | HO.ANESPROP2 ---
[facility] Active Problems Active Problems: All Active Problems (Updated 06/06/20 @ 11:02 by Honorio Byers MD) Panniculitis (Acute) Abnormal uterine bleeding (AUB) (Acute) Vaginal itching (Acute) Sacroiliitis (Acute) Open wound (Acute) Excess skin of thigh (Acute) Excess skin of arm (Acute) Panniculitis (Acute) Postconcussion syndrome (Acute) Spinal stenosis (Acute) Migraines (Acute) Labral tear of right hip joint (Acute) Hypotension (Acute) Herpes (Acute) Depression (Acute) Colon polyps (Acute) Chronic sinusitis (Acute) Asthma (Acute) Status post bariatric surgery (Acute) Postlaminectomy syndrome (Acute) Neck pain (Acute) Orthostatic hypotension (Acute) Syncope and collapse (Acute) Bunion of left foot (Acute) Malabsorption due to intolerance, not elsewhere classified (Acute) Malabsorption due to intolerance, not elsewhere classified (Acute) S/P laparoscopic sleeve gastrectomy (Acute) Past Medical History Medical History Allergic rhinitis Asthma Bunion of left foot Chronic sinusitis Colon polyps COVID-19 vaccine administered Depression Excess skin of arm Excess skin of thigh Herpes Hypotension Labral tear of right hip joint Malabsorption due to intolerance, not elsewhere classified Malabsorption due to intolerance, not elsewhere classified Migraines Neck pain Orthostatic hypotension Panniculitis Postconcussion syndrome Postlaminectomy syndrome Spinal stenosis Syncope and collapse Family History Family History Father No problems noted. Mother Cervical spine tumor Brother No problems noted. Brother No problems noted. Brother No problems noted. Brother No problems noted. Sister No problems noted. Son No problems noted. Daughter No problems noted. Surgical History Surgical History H/O colonoscopy H/O endoscopy H/O laminectomy History of appendectomy History of endometrial ablation History of hip surgery S/P bilateral foot surgery S/P laparoscopic sleeve gastrectomy S/P tonsillectomy Status post bariatric surgery Social History Social History Household Members: Spouse Housing: House Are you a primary pet care attendant to a significant other at home: No Do you presently have visiting nurse or other home services: No Alcohol intake: never Smoking Status: Never smoker Use of substances other than those prescribed or required for medical reasons: No Substance Use Type: Marijuana Substance Use Frequency: Weekly Have you been hit, kicked, punched, or otherwise hurt by someone within the past year? If so, by whom?: No Advance Directives Information Provided: No Recently lost weight without trying: No Meds Allergies Allergy/AdvReac Type Severity Reaction Status Date / Time Iodinated Contrast Media Allergy Intermediate HIVES Verified 06/08/20 09:09 [Iodinated Contrast Media - IV Dye] ketorolac [From Toradol] Allergy Intermediate localized Verified 06/08/20 09:09 redness/swelling Active Medications: Current Medications Generic Name Dose Route Start Last Admin Trade Name Freq PRN Reason Stop Dose Admin Lactated Ringer's 1,000 mls @ 20 mls/hr 06/07/20 14:30 Lr IVCONT .Q24H HAY Lactated Ringer's 1,000 mls @ 100 mls/hr 06/07/20 19:00 Lr IVCONT .Q10H [facility] Home Medications Medication Instructions Recorded Confirmed Last Taken Type calcium citrate 315 mg 1 tab PO BID 11/20/19 06/06/20 Unknown History calcium-vitamin D3 6.25 mcg (250 unit) tablet clonazepam 1 mg tablet 1 mg PO TID 11/20/19 06/06/20 06/08/20 History methylcellulose (with sugar) oral 1 tbsp PO DAILY 11/20/19 06/06/20 Unknown History powder paroxetine HCl 40 mg tablet 40 mg PO BEDTIME 11/20/19 06/06/20 Unknown History quetiapine 100 mg tablet 100 mg PO BEDTIME 03/14/20 06/06/20 Unknown History gabapentin 600 mg tablet 1,200 mg PO TID tab 04/19/20 06/06/20 Unknown History paroxetine HCl 10 mg PO BEDTIME 06/01/20 06/06/20 Unknown History Exam Exam Date and Time: June 08, 202007 Height,Weight and Vital Signs: Height 5 ft 7 in Weight 58.513 kg Pertinent Lab Results Pertinent Lab Results: Laboratory Tests 06/02/20 06/02/20 06/02/20 15:30 15:30 15:30 WBC 5.2 RBC 4.00 L Hgb 12.8 Hct 38.4 MCV 96.0 MCH 32.0 MCHC 33.3 RDW 12.1 Plt Count 229 MPV 9.5 Immature Gran % (Auto) 0.4 Neut % (Auto) 37.4 L Lymph % (Auto) 51.0 H [place] % (Auto) 8.7 Eos % (Auto) 1.9 Baso % (Auto) 0.6 Lymph # (Auto) 2.6 [place] # (Auto) 0.5 Eos # (Auto) 0.1 Baso # (Auto) 0.0 Abs Immat Gran (auto) 0.02 Absolute Neuts (auto) 1.9 L Absolute Nucleated RBC 0.000 Nucleated RBC % (auto) 0.0 PT 11.5 INR 1.0 APTT 32.2 Sodium 141 Potassium 4.6 Chloride 104 Carbon Dioxide 31 H Anion Gap 11 L BUN 19 H Creatinine 0.73 Estim Creat Clear Calc 76.6 Estimated GFR > 60 Random Glucose 96 Calcium 9.5 Total Bilirubin 0.3 AST 19 ALT 16 Alkaline Phosphatase 82 C-Reactive Protein 0.02 Total Protein 7.1 Albumin 4.7 Blood Type Antibody Screen 06/02/20 15:30 WBC RBC Hgb Hct MCV MCH MCHC RDW Plt Count MPV Immature Gran % (Auto) Neut % (Auto) Lymph % (Auto) [place] % (Auto) Eos % (Auto) Baso % (Auto) Lymph # (Auto) [place] # (Auto) Eos # (Auto) Baso # (Auto) Abs Immat Gran (auto) Absolute Neuts (auto) Absolute Nucleated RBC Nucleated RBC % (auto) PT INR APTT Sodium Potassium Chloride Carbon Dioxide Anion Gap BUN Creatinine Estim Creat Clear Calc Estimated GFR Random Glucose Calcium Total Bilirubin AST ALT Alkaline Phosphatase C-Reactive Protein Total Protein Albumin Blood Type B Positive Antibody Screen NEGATIVE Airway Mallampati Class: III (Small narrow mouth) TM Dist: >3cm Neck ROM: Full Loose/Missing/Broken Teeth: No Heart: RRR Lungs: CTA Assessment and Plan Assessment Anesthesia Assessment: Anesthesia Plan Discussed and Chart Reviewed Final Anesthetic Review NPO: Yes ASA Class: II Final Preanesthetic Review: Meds/Allgs Chart Reviewed, Consent Obtained/Reviewed and Anes Risks/Benef Reviewed Patient Risk: Low Procedure Risk: Intermediate Anesthetic Plan Anesthetic Plan: GA Disposition: Standard PACU
[2020-06-08] MEDS: Lactated Ringers 1,000 ML 100 ML IVCONT ×2 (09:43→17:16)
[2020-06-08] MEDS: Lactated Ringers 1,000 ML 20 ML IVCONT (09:43)
[2020-06-08 09:52] LABS: COVID-19 Test Negative (Negative)
--- NOTE | 2020-06-08 11:13 | PM.PNGS ---
Subjective Subjective Date of Service: 06/09/20 Interval history: Patient has mild incisional pain. Is tolerating liquid diet. All dressings were taken down and flaps/umbilicus appear viable without evidence of erythema, discharge or necrosis Physical Exam Vital Signs: Vital Signs: Last Vital Signs Temp 97.9 F 06/08/20 09:19 Pulse 98 06/08/20 09:19 Resp 18 06/08/20 09:19 BP 117/41 L 06/08/20 09:19 Pulse Ox 98 06/08/20 09:19 Body Mass Index 20.2 GI: Inspection: Yes normal to inspection, Yes incision (clean, dry and intact) and Yes other (NITHIN with serosanguinous fluid) Extrem: Right lower extremity: normal to inspection (no calf tenderness) Left lower extremity: normal to inspection (no calf tenderness) Progress Note: A&P Assessment and plan (1) S/P panniculectomy: Status: Acute Assessment and Plan: 60 year old female was admitted 06/08/2020 with panniculitis. Problem 1: s/p panniculectomy with umbilical transposition and bilateral subcutaneous fat flaps Status: Doing well Plan: Check am labs, If OK, ambulate, d/c Rajput will continue phase 1 bariatric diet and discharge later today. (2) Malabsorption due to intolerance, not elsewhere classified: Status: Acute (3) S/P laparoscopic sleeve gastrectomy: Status: Acute (4) Panniculitis: Status: Acute Fall Risk Details Current Medications: Current Medications Generic Name Dose Route Start Last Admin Trade Name Freq PRN Reason Stop Dose Admin Lactated Ringer's 1,000 mls @ 20 mls/hr 06/07/20 14:30 06/08/20 09:43 Lr IVCONT 20 mls/hr .Q24H HAY Administration Lactated Ringer's 1,000 mls @ 100 mls/hr 06/07/20 19:00 06/08/20 09:43 Lr IVCONT 100 mls/hr .Q10H HAY Administration Time Spent With Patient Time: Total time spent is greater than 50% in coordination of care (as documented) at patient's floor/unit and/or counseling patient: Time with patient: less than 15 minutes
--- NOTE | 2020-06-08 11:19 | P.BOP_ITS ---
Brief Operative Note Date of Service: 06/08/20 Pre-op diagnosis: Panniculitis Post-op diagnosis: same Procedure: PROCEDURE: Panniculectomy with umbilical transposition and omental flap INDICATION: This a 60 year old female who underwent laparoscopic sleeve gastrectomy on 06/26/2018. She had an excellent result achieving a BMI of 20.2 kg/m2 with a total weight loss of 112lbs, or 46.47% of her TBWL. As a result, she has developed panniculitis which has not resolved despite continuous use of clotrimazole ointment as well as skin irritation and intetrigo in both upper arms. On exam she has extreme skin laxity due to massive weight loss and age with the abdominal pannus completely hiding the genitalia. Panniculectomy was recommended. We discussed the two options for the panniculectomy of using a combined vertical and horizontal incisions or just a horizontal (bikini) incision. It was my recommendation to do only horizontal incision based on her body habitus and skin laxity. The patient agreed with this. Risks and complications were discussed with the patient including bleeding, infection, umbilical loss, flap necrosis, asymmetry, dehiscence, seroma, VTE. The patient understood the risks and was in agreement to proceed with surgery. PROCEDURE: The incisions were appropriately marked at the preop area with the patient standing and laying down. After induction of general anesthesia, a Rajput catheter and pneumatic compression devices were placed. The patient was prepped and draped in the usual sterile manner and the incisions were marked again and confirmed. In similar fashion both upper arms were also marked when the patient was standing. The skin was infiltrated with lidocaine and epinephrine. The #10 blade scalpel was used for the large incisions and the #15 blade scalpel for the umbilicus. Cautery was used to divide the subcutaneous tissues until the fascia was identified. Then I used the Thunderbeat (Olympus) to separate the pannus from the fascia. The inferior incision was made initially and I mobilized the flap for a several centimeters cephalad to the umbilicus. The umbilicus was incised circumferentially and detached from the surrounding tissues all the way to the fascia while its stalk was preserved. With the patient in reflex position I confirmed that the skin flaps were appropriate and would allow for the tissues to come together with reasonable tension. At that point a horizontal incision was made 4 cm above the umbilicus. #10 blade was used for the skin, cautery for the dermis and the Thunderbeat for the remaining tissues. An omental flap was raised from the upper flap in order to fill the space under the skin and support the closure of the two flaps. In addition the inferior flap was mobilized caudally for a few centimeters to create a space for the omental flap as well as relieve tension from the closure. A circumferential incision was made at the area where the umbilicus would be re-implanted. The umbilicus was appropriately oriented and was delivered through the defect and was secured in place with a Jerome. No bleeding was noted anywhere. One NITHIN drain was placed from the right corner of the horizontal incision across the wound and was secured in place with a silk suture. The omental flap was secured under the inferior flap with several interrupted 3.0 Monocryl sutures. The two flaps were brought together and were attached at the midline of the horizontal incision with a #3.0 Monocryl suture. At that point the umbilicus was properly oriented and was re-approximated to the skin with 8 interrupted 3.0 Monocryl sutures. In a similar fashion the skin flaps were re-approximated with multiple 3.0 Monocryl sutures. The skin was closed in all incisions and umbilicus with 4.0 Monocryl sutures. Steri-strips, xeroform gauzes and gauzes were used to cover the incisions. An abdominal binder was also placed. The was awaken and was transferred to the recover room in a stable condition. I was present and performed the entire procedure. Felix was the assistant food service director. Enrique Caal MD, PhD, FACS Surgeon: Pepe Caal MD Surgeon: Pepe Caal MD Anesthesia: GETA and local Oriental Rug Repairer: Cathy Washington Estimated blood loss (mL): 10 IV fluids (mL): 1,500 Urine output (mL): 500 Pathology: other (abdominal pannus) Condition: stable Disposition: PACU
--- NOTE | 2020-06-08 14:33 | P.DS_ITS ---
DS: Providers Provider Date of Service: 06/13/20 Date of admission: 06/08/20 08:46 Primary care physician: Corinne Figueroa MD DS: Diagnosis Discharge Diagnosis (1) S/P panniculectomy: Status: Acute (2) Malabsorption due to intolerance, not elsewhere classified: Status: Acute (3) S/P laparoscopic sleeve gastrectomy: Status: Acute (4) Panniculitis: Status: Acute DS: Medications Discharge Medications Home Medications: Home Medications Medication Instructions Recorded Confirmed calcium citrate 315 mg 1 tab PO BID 11/20/19 06/06/20 calcium-vitamin D3 6.25 mcg (250 unit) tablet clonazepam 1 mg tablet 1 mg PO TID 11/20/19 06/06/20 methylcellulose (with sugar) oral 1 tbsp PO DAILY 11/20/19 06/06/20 powder paroxetine HCl 40 mg tablet 40 mg PO BEDTIME 11/20/19 06/06/20 quetiapine 100 mg tablet 100 mg PO BEDTIME 03/14/20 06/06/20 gabapentin 600 mg tablet 1,200 mg PO TID tab 04/19/20 06/06/20 paroxetine HCl 10 mg PO BEDTIME 06/01/20 06/06/20 Previous Rx's Medication Instructions Recorded lidocaine 5 % topical patch 1 patch TOPICAL DAILY #30 ea 12/20/19 mecobalamin (vitamin B12) 1,000 1,000 mcg PO DAILY #30 tab 01/27/20 mcg chewable tablet fluticasone propionate 50 1 spray INTRANASAL DAILY #16 g 03/16/20 mcg/actuation nasal spray,suspension fluconazole 150 mg tablet 150 mg PO ONCE PRN 1 Days #1 tab 03/17/20 naloxone 4 mg/actuation nasal spray 4 mg INTRANASAL Q2M PRN #2 ea 03/22/20 clotrimazole 1 % topical cream 1 appl TOPICAL BID #45 g 04/12/20 meloxicam 7.5 mg tablet 7.5 mg PO DAILY #90 tab 05/03/20 valacyclovir 1 gram tablet 1,000 mg PO Q8H #90 tab 05/03/20 romxlbadbl-dbiqspndcmeoa-uleoebzs 1 tab PO Q4H PRN #30 tab 05/15/20 50 mg-325 mg-40 mg tablet bismuth tribrom-petrolatum,wh 1 X #200 ea 05/30/20 8 bandage cephalexin 500 mg capsule 500 mg PO Q12H #30 cap 05/30/20 fluticasone furoate 200 1 inh INHALATION DAILY #60 ea 05/30/20 mcg-vilanterol 25 mcg/dose inhalation powder gabapentin 600 mg tablet 600 mg PO BID #180 tab 05/30/20 ondansetron HCl 4 mg tablet 4 mg PO Q12H #20 tab 05/30/20 oxycodone-acetaminophen 5 mg-325 1 tab PO TID 30 Days #90 tab 06/06/20 mg tablet DS: Summary Time Spent with Patient Time attestation: DISCHARGE SUMMARY ADMITTING DIAGNOSIS: panniculitis, s/p lap sleeve gastrectomy DISCHARGE DIAGNOSIS: The same. PAST SURGICAL HISTORY: Lap PROCEDURE: Panniculectomy. HISTORY OF PRESENT ILLNESS: The patient is a 60 year-old woman with a BMI of 20.2 kg/m2 and associated co- morbidities as described previous. The patient had a laparoscopic sleeve gastrectomy on June 19, 2018 and has lost a total of 112 lbs, or 46.47% of her initial weight and her BMI reduced to 20.2 kg/m2 from 37.7 kg/m2. As a result of the massive weight loss she developed a large abdominal pannus and persistent panniculitis recalcitrant to medical treatment. The patient was electively scheduled for panniculectomy. Risks and complications of the surgery were discussed with the patient in advance, particularly the possibility of , pulmonary embolism, skin necrosis, loss of umbilicus, flap necrosis, wound dehiscence, flap asymmetry, bleeding requiring transfusion. The patient understood all the risks and was in agreement with the surgical plan. On postoperative day #1 the patient was started on Phase 3 bariatric diet. The Rajput was discontinued. She was allowed to ambulate and she had no dizziness. During the first day, the patient did fairly well, having some incisional pain, but able to ambulate adequately and to tolerate liquids well. All dressings were taken down and the all incisions were inspected. There was no evidence of infection or bleeding or significant discharge. All flaps and umbilicus were viable and there was no dehiscence. NITHIN drains had minimal output with serosanguinous fluid. Since the patient is doing well, we decided that the patient was ready to be discharged. The patient was given instructions to follow-up with me next week and to call my office for any fever over 101, persistent abdominal pain, nausea, vomiting, and symptoms of DVT such as calf tenderness, or leg swelling, or pulmonary embolism such as chest pain or shortness of breath. The patient was also instructed to drink 40-60 ounces of liquids per day using the 1-ounce cups and start on 3 Pure protein shakes per day. The patient was given prescription for Tylenol for pain, Zofran prn for nausea and a 10-day course of Keflex twice a day. The patient was encouraged to ambulate and use the incentive spirometer. However it was strongly recommended to do so with assistance and avoid any abdominal straining for at least one month. The patient was allowed only to do sponge baths, and encouraged to use the recliner at home and not the bed. All of these instructions were given to the patient personally. All questions were answered and the patient understood all instructions. The instructions were given to the patient in print as well. Total time spent providing and/or coordinating discharge services: 15 minutes Discharge coordination time: Less than 30 minutes Physical Exam Vital Signs: Vital Signs: Last Vital Signs Temp 97.9 F 06/08/20 09:19 Pulse 98 06/08/20 09:19 Resp 18 06/08/20 09:19 BP 117/41 L 06/08/20 09:19 Pulse Ox 98 06/08/20 09:19 Body Mass Index 20.2 DS: Data Data Completed and Pending Pending studies at discharge: Pending at discharge 06/08/20 13:03 Surgical [PTH] Routine Labs on day of discharge: Laboratory Results - last 24 hr 06/08/20 08:59 COVID-19 (PIETER) Negative COVID-19 Clin Com See Note Discharge Plan Discharge Anticipated Discharge Date/Time: 06/09/20 14:29 Patient Disposition: Home Health Service Discharge Diagnosis: POD # 1 s/p panniculectomy Referrals: [facility] [Outside] - 1 Week Corinne Figueroa MD [Primary Care Provider] - 1 Week Discharge Medications: Continued lidocaine 5 % adhesive patch,medicated 1 patch topical DAILY Qty: 30 RF: 6 mecobalamin (vitamin B12) 1,000 mcg tablet,chewable 1,000 mcg PO DAILY Qty: 30 RF: 5 fluticasone propionate 50 mcg/actuation spray,suspension 1 spray intranasal DAILY Qty: 16 RF: 3 valacyclovir [Valtrex] 1 gram tablet 1,000 mg PO Q8H Qty: 90 RF: 1 tzesrfettq-vjfaliqxdhupd-yksq 50-325-40 mg tablet 1 tab PO Q4H PRN (Reason: pain) Qty: 30 RF: 2 Breo Ellipta 200-25 mcg/dose blister with device 1 inh inhalation DAILY Qty: 60 RF: 6 gabapentin 600 mg tablet 600 mg PO BID Qty: 180 RF: 3 paroxetine HCl 10 mg Tablet 10 mg PO BEDTIME RF: 0 clonazepam 1 mg tablet 1 mg PO TID RF: 0 paroxetine HCl 40 mg tablet 40 mg PO BEDTIME RF: 0 calcium citrate-vitamin D3 315 mg- 250 unit tablet 1 tab PO BID RF: 0 Citrucel (sucrose) Powder 1 tbsp PO DAILY RF: 0 Narcan 4 mg/actuation spray,non-aerosol 4 mg intranasal Q2M PRN (Reason: opioid overdose) Qty: 2 RF: 0 gabapentin 600 mg tablet 1,200 mg PO TID RF: 0 ondansetron HCl [Zofran] 4 mg tablet 4 mg PO Q12H Qty: 20 RF: 0 cephalexin 500 mg capsule 500 mg PO Q12H Qty: 30 RF: 2 (DME) Xeroform Petrolatum Dressing 1 X 8 bandage See Rx Instructions .ROUTE .MEDSUPPLY Qty: 200 RF: 1 oxycodone-acetaminophen [Percocet] 5-325 mg tablet 1 tab PO TID 30 Days Qty: 90 RF: 0 quetiapine 100 mg tablet 100 mg PO BEDTIME RF: 0 Held meloxicam 7.5 mg tablet 7.5 mg PO DAILY Qty: 90 RF: 3 Hold Instructions: Discuss restart date with Dr Caal Discontinued fluconazole [Diflucan] 150 mg tablet 150 mg PO ONCE PRN (Reason: personal) 1 Days Qty: 1 RF: 0 clotrimazole 1 % cream 1 appl topical BID Qty: 45 RF: 1 Discharge Orders: Discharge Order (Routine); Ordered 06/09/20 Ordered By: Pepe Caal Diet: other Activity on Discharge: Rest with bed elevated Stand Alone Forms: Patient Portal Discharge page Activity Restrictions/Additional Instructions: 1) Record drain output for all 24 hour periods on drain output sheet. Bring sheet at the next office visit 2) Start Keflex antibiotic 3) No showers. Only sponge baths 4) Avoid any tension on the abdomen and always have help getting up. Use your arms to push off from chair/bed. 5) Take 1 tab of Colace and one tablespoon of Metamucil daily 6) Diet: 2 Pure protein shakes (1/2 scoop in water) and 2 Pure protein bars. Once you move your bowels, change to 2 shakes, one bar and one meal 7) Wear binder at all times 8) Change dressings daily and send pictures to Dr. Caal. Replace loose steri-strips and xeroform gauze along the incisions and umbilicus. 9) Supplies needed: ABD pads, 4x4 dressings, xeroform gauze, 1/2'' steri-strips, paper tape. You will need to use several of the above supplies on a daily basis. Care Plan Goals: No further panniculitis Health Concerns: panniculitis Plan of Treatment: see discharge instructions Assessment: stable POD # 1 Discharge Date/Time: 06/09/20 12:07
--- NOTE | 2020-06-08 14:36 | P.F2F_ITS ---
Service Date Service Date: 06/08/20 Reasons for Services Homebound: Leaving the home is medically contraindicated at this time without the asist of a device and/or another person due th the listed conditions above and below. Certification: Based on the above findings, I certify that this patient is confined to the home and needs intermittent mcfp care, NITHIN drain management, physical therapy and/or, or continues to need occupational therapy. The patient is under my care, and I have initiated the establishment of the plan of care. The patient will be followed by a physician who will periodically rev iew the plan of care.
[2020-06-08] MEDS: HYDROmorphone HCl 0.5 MG/0.5 ML SYRINGE 0.25 MG IVPUSH ×3 (14:49→23:35)
[2020-06-08] MEDS: oxyCODONE HCl Immed Release 5 MG TABLET 10 MG PO (14:52)
[2020-06-08] MEDS: HYDROmorphone HCl 0.5 MG/0.5 ML SYRINGE IVPUSH (15:32)
[2020-06-08] MEDS: clonazePAM 1 MG TABLET PO ×2 (17:16→21:01)
[2020-06-08] MEDS: ceFAZolin Sodium/Dextrose,Iso 2 GM/50 ML PIGGYBACK IV (19:09)
[2020-06-08] MEDS: PARoxetine HCL 40 MG TABLET PO (21:01)
[2020-06-08] MEDS: PARoxetine HCL 10 MG TABLET PO (21:01)
[2020-06-08] MEDS: Gabapentin 600 MG TABLET PO (21:01)
[2020-06-08] MEDS: QUEtiapine Fumarate 100 MG TABLET PO (21:01)
[2020-06-09] MEDS: ondansetron HCL 4 MG/2 ML VIAL IVPUSH ×2 (00:50→08:11)
[2020-06-09] MEDS: Lactated Ringers 1,000 ML 100 ML IVCONT (02:55)
[2020-06-09 03:43] VITALS: BP 105/49; PULSE 78; RESP 20; TEMP 36.4; O2SAT 96
[2020-06-09] MEDS: HYDROmorphone HCl 0.5 MG/0.5 ML SYRINGE 0.25 MG IVPUSH ×2 (03:50→08:30)
[2020-06-09 04:56] LABS: MANUAL DIFF FLAG NO
[2020-06-09 04:58] LABS: Basophils Percent Auto 0.4 % (0-2); Eosinophils Absolute Auto 0.1 X10*3/uL (0.0-0.4); Eosinophils Percent Auto 1.1 % (0-4); Hematocrit 32.9 % (37-47); Hemoglobin 11.2 g/dl (12.0-16.0); Imm Gran Abs Auto 0.01 X10*3/uL (0.00-0.03); Imm Gran Pct Auto 0.2 % (0.0-0.4); Lymphocytes Absolute Auto 1.6 X10*3/uL (1.2-4.9); Lymphocytes Percent Auto 29.9 % (20-40); Mean Corpuscular Volume 97.1 fL (80-98); Mean Platelet Volume 9.6 fL (9.4-12.3); Monocytes Absolute Auto 0.6 X10*3/uL (0.1-1.2); Monocytes Percent Auto 11.2 % (2-11); Neutrophils Absolute Auto 3.1 X10*3/uL (2.0-8.3); Neutrophils Percent Auto 57.2 % (45-73); Platelet Count 159 X10*3/uL (160-400); Red Blood Count 3.39 X10*6/uL (4.20-5.50); Red Cell Distribution Width 12.2 % (11.0-16.0); White Blood Count 5.4 X10*3/uL (4.8-10.8)
[2020-06-09 05:24] LABS: Anion Gap 12 (12-20); Blood Urea Nitrogen 12 mg/dL (9-16); Carbon Dioxide 30 mmol/L (22-29); Chloride 104 mmol/L (96-108); Creatinine Clr Calc Pharmacy 93.2; Estimated Glomerular Filt Rate > 60; Glucose Random 91 mg/dL (60-115); Potassium 4.7 mmol/L (3.3-5.1); Sodium 141 mmol/L (135-145)
[2020-06-09 07:51] VITALS: PULSE 61; O2SAT 97
[2020-06-09] MEDS: Fluticasone/Vilanterol 200/25 BLST.W.DEV 1 PUFF INHALE (07:51)
[2020-06-09] MEDS: Butalb/Acetamin/Caff 50/325/40 TABLET 1 TAB PO (08:11)
[2020-06-09] MEDS: clonazePAM 1 MG TABLET PO (08:11)
[2020-06-09] MEDS: Gabapentin 600 MG TABLET PO (08:11)
--- NOTE | 2020-06-09 09:09 | MHC.CM.PN ---
Addendum entered by Lora Teague 06/09/20 11:55: PT WILL DC HOME TODAY WITH [facility]. [facility] AT [facility] NOTIFIED OF PTS DC AND MCC NEEDS VIA T/C ([phone]) Original Note: PT REPORTS SHE LIVES AT HOME WITH HER AND SHE IS COMPLETELY INDEPENDENT. 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 COPY REQUESTED. PT CONFIRMS HER PCP IS MARILYN COYLE. PT IS AWARE VISITING NURSE SERVICES HAVE BEEN RECOMMENDED AND SHE REQUESTS A REFERRAL TO [facility]. IMM DELIVERED. CURRENT DC PLAN IS HOME WITH [facility]. TO TRANSPORT
[2020-06-09 10:32] VITALS: BP 107/55; PULSE 69; RESP 16; TEMP 36.9; O2SAT 96
== END 2020-06-09 12:07 | disposition home health service (06) | DRG 578 ==
LOC: HO.SSSA 14:33 → HO.S3 16:04
PROVIDERS: Physician Assistant; Admitting Provider Surgery; PCP Internal Medicine; Visit Provider Surgery
PROC: 0JB80ZZ Excision of Abdomen Subcutaneous Tissue and Fascia, Open Approach (ICD-10-PCS; CPT 15830; principal; 2020-06-08 10:40)
DX: M79.3 Panniculitis, unspecified (principal); Z20.822 Contact with and (suspected) exposure to COVID-19; Z98.84 Bariatric surgery status; Z79.51 Long term (current) use of inhaled steroids; Z79.899 Other long term (current) drug therapy
CPT/HCPCS: 36415; 80048; 80053; 85025; 85610; 85730; 86140; 86850; 86900; 87635; 88304; 99024; C1758; J0131; J0690; J1170; J2250; J2405; J2550; J3010

== ENCOUNTER → 2020-06-14 07:45 | Outpatient (BNVA) | payer OTHER, SELFPAY | PROVIDERS: PCP Internal Medicine; Visit Provider Surgery | DX: Z98.890 Other specified postprocedural states (principal) | CPT/HCPCS: 99212 ==

== ENCOUNTER → 2020-06-19 08:18 | Outpatient (BNVA) | payer OTHER, SELFPAY | PROVIDERS: PCP Internal Medicine; Visit Provider Physician Assistant ==

== ENCOUNTER → 2020-06-22 10:45 | Outpatient (BNVA) | payer OTHER, SELFPAY | PROVIDERS: PCP Internal Medicine; Visit Provider Anesthesiology | DX: M96.1 Postlaminectomy syndrome, not elsewhere classified (principal) | CPT/HCPCS: 99212 ==

== ENCOUNTER → 2020-06-30 09:16 | Outpatient (BNVA) | payer OTHER, SELFPAY | PROVIDERS: PCP Internal Medicine; Referring Provider Internal Medicine; Visit Provider Physician Assistant | DX: L98.7 Excessive and redundant skin and subcutaneous tissue (principal); Z98.890 Other specified postprocedural states; Z98.84 Bariatric surgery status | CPT/HCPCS: 99212 ==

== ENCOUNTER 2020-07-04 07:09 | Outpatient (REF) | payer OTHER, SELFPAY ==
[2020-07-04 08:11] LABS: MANUAL DIFF FLAG NO
[2020-07-04 08:15] LABS: Basophils Percent Auto 0.6 % (0-2); Eosinophils Absolute Auto 0.1 X10*3/uL (0.0-0.4); Eosinophils Percent Auto 3.5 % (0-4); Hematocrit 37.3 % (37-47); Hemoglobin 12.2 g/dl (12.0-16.0); Imm Gran Abs Auto 0.01 X10*3/uL (0.00-0.03); Imm Gran Pct Auto 0.3 % (0.0-0.4); Lymphocytes Absolute Auto 1.3 X10*3/uL (1.2-4.9); Lymphocytes Percent Auto 41.3 % (20-40); Mean Corpuscular HGB Conc 32.7 g/dl (31.0-35.0); Mean Corpuscular Hemoglobin 31.3 pg (27.0-33.0); Mean Corpuscular Volume 95.6 fL (80-98); Monocytes Absolute Auto 0.3 X10*3/uL (0.1-1.2); Monocytes Percent Auto 10.2 % (2-11); Neutrophils Absolute Auto 1.4 X10*3/uL (2.0-8.3); Neutrophils Percent Auto 44.1 % (45-73); Platelet Count 216 X10*3/uL (160-400); Red Cell Distribution Width 12.2 % (11.0-16.0); White Blood Count 3.2 X10*3/uL (4.8-10.8)
[2020-07-04 08:47] LABS: Alanine Aminotransferase 16 U/L (0-31); Albumin Level 4.3 g/dL (3.5-5.0); Alkaline Phosphatase 83 U/L (39-117); Anion Gap 11 (12-20); Aspartate Amino Transferase 20 U/L (5-31); Bilirubin Total 0.5 mg/dL (0.0-1.0); Blood Urea Nitrogen 19 mg/dL (9-16); C Reactive Protein 0.04 mg/dL (< or = 0.50); Calcium 9.2 mg/dL (8.4-10.2); Carbon Dioxide 28 mmol/L (22-29); Chloride 107 mmol/L (96-108); Cholesterol 260 mg/dL; Estimated Glomerular Filt Rate > 60; Glucose Fasting 85 mg/dL (60-99); HDL Cholesterol 84 mg/dL; Iron 135 mcg/dL (30-160); LDL Cholesterol Calculated 157 mg/dl; Percent Iron Saturation 51 % (15-50); Sodium 142 mmol/L (135-145); Total Iron Binding Capacity 263 mcg/dL (228-428); Total Protein 6.6 g/dL (6.5-8.0); Triglycerides 98 mg/dL; Unsaturated Iron Binding 128 ug/dL
[2020-07-04 09:08] LABS: Ferritin 104 ng/mL (10-250); TSH reflex Free T4 0.73 uIU/mL (0.32-4.0); Vitamin D 25-OH Total 33.8 ng/mL (>30)
[2020-07-04 09:27] LABS: Folate 11.5 ng/mL (> or = 4.0); Vitamin B12 426 pg/mL (200-900)
[2020-07-04 09:48] LABS: Estimated Average Glucose 103 mg/dL; Hemoglobin A1c % 5.2 %
[2020-07-04 10:56] LABS: CT PCR NOT DETECTED (Not Detect.); NG PCR NOT DETECTED (Not Detect.)
[2020-07-05 12:57] LABS: Calcium (PTHI) 9.3 mg/dL (8.6-10.4); PTHI 47 pg/mL (14-64)
[2020-07-05 17:02] LABS: Insulin Level Total 22.1 uIU/mL
[2020-07-07 17:02] LABS: Zinc 67 mcg/dL (60-130)
[2020-07-09 11:37] LABS: Vitamin A 56 mcg/dL (38-98)
[2020-07-09 11:56] LABS: Vitamin B1 18 nmol/L (8-30)
== END 2020-07-04 07:10 | disposition home or self-care (01) ==
LOC: HO.LAB 07:09
PROVIDERS: Advanced Practice Midwife; PCP Internal Medicine; Visit Provider Physician Assistant
DX: M96.1 Postlaminectomy syndrome, not elsewhere classified (principal); K90.49 Malabsorption due to intolerance, not elsewhere classified; E66.01 Morbid (severe) obesity due to excess calories; N89.8 Other specified noninflammatory disorders of vagina; N93.9 Abnormal uterine and vaginal bleeding, unspecified; Z98.84 Bariatric surgery status
CPT/HCPCS: 36415; 80053; 80061; 82306; 82607; 82728; 82746; 83036; 83525; 83540; 83970; 84425; 84443; 84590; 84630; 85025; 86140; 87491; 87591; 99212

== ENCOUNTER → 2020-08-04 06:48 | Outpatient (BNVA) | payer OTHER, SELFPAY | PROVIDERS: PCP Internal Medicine; Visit Provider Surgery | DX: K90.49 Malabsorption due to intolerance, not elsewhere classified (principal); L57.4 Cutis laxa senilis | CPT/HCPCS: 99212; Q3014 ==

== ENCOUNTER → 2020-08-08 09:55 | Outpatient (BNVA) | payer OTHER, SELFPAY | PROVIDERS: PCP Internal Medicine; Visit Provider Family Medicine Adult Medicine | DX: M96.1 Postlaminectomy syndrome, not elsewhere classified (principal) | CPT/HCPCS: 99212 ==

== ENCOUNTER 2020-08-18 16:00 | Outpatient (REF) | payer OTHER, SELFPAY ==
[2020-08-18 16:39] LABS: MANUAL DIFF FLAG NO
[2020-08-18 16:41] LABS: Basophils Percent Auto 0.9 % (0-2); Eosinophils Absolute Auto 0.1 X10*3/uL (0.0-0.4); Eosinophils Percent Auto 2.1 % (0-4); Hemoglobin 12.4 g/dl (12.0-16.0); Imm Gran Abs Auto 0.01 X10*3/uL (0.00-0.03); Imm Gran Pct Auto 0.2 % (0.0-0.4); Lymphocytes Absolute Auto 1.9 X10*3/uL (1.2-4.9); Lymphocytes Percent Auto 43.5 % (20-40); Mean Corpuscular HGB Conc 33.5 g/dl (31.0-35.0); Mean Corpuscular Hemoglobin 31.7 pg (27.0-33.0); Mean Corpuscular Volume 94.6 fL (80-98); Mean Platelet Volume 9.6 fL (9.4-12.3); Monocytes Absolute Auto 0.3 X10*3/uL (0.1-1.2); Monocytes Percent Auto 7.3 % (2-11); Platelet Count 236 X10*3/uL (160-400); Red Blood Count 3.91 X10*6/uL (4.20-5.50); White Blood Count 4.4 X10*3/uL (4.8-10.8)
[2020-08-18 16:53] LABS: Prothrombin Time 11.1 SEC (9.9-13.0)
[2020-08-18 16:55] LABS: Partial Thromboplastin Time 34.1 SEC (24.1-38.0)
[2020-08-18 17:11] LABS: Alanine Aminotransferase 16 U/L (0-31); Albumin Level 4.5 g/dL (3.5-5.0); Alkaline Phosphatase 92 U/L (39-117); Anion Gap 14 (12-20); Aspartate Amino Transferase 22 U/L (5-31); Bilirubin Total 0.4 mg/dL (0.0-1.0); Blood Urea Nitrogen 14 mg/dL (9-16); Carbon Dioxide 27 mmol/L (22-29); Chloride 105 mmol/L (96-108); Estimated Glomerular Filt Rate > 60; Glucose Random 140 mg/dL (60-115); Potassium 4.9 mmol/L (3.3-5.1); Sodium 141 mmol/L (135-145)
[2020-08-18 17:12] LABS: Cholesterol 240 mg/dL; HDL Cholesterol 83 mg/dL; LDL Cholesterol Calculated 138 mg/dl; Triglycerides 99 mg/dL
== END 2020-08-18 16:01 | disposition home or self-care (01) ==
LOC: HO.LAB 16:00
PROVIDERS: Absent Provider Internal Medicine; PCP Internal Medicine; Visit Provider Surgery
DX: D70.9 Neutropenia, unspecified (principal); E78.5 Hyperlipidemia, unspecified; K90.49 Malabsorption due to intolerance, not elsewhere classified
CPT/HCPCS: 36415; 80053; 80061; 85025; 85610; 85730

== ENCOUNTER 2020-08-22 10:09 | Inpatient (IN) | payer OTHER, SELFPAY ==
[2020-08-15 10:10] VITALS: BMI 20.2
--- NOTE | 2020-08-18 08:28 | P.CONAN_ITS ---
Documented by User: Enedelia Vieira 08/18/20 08:30 HPI - Anesthesia Eval Consult details Narrative: 60yo F for Bilateral Thighplasty & Bilateral Brachioplasty s/p panniculectomy 05/2020 with GA-ETT 7 chronic opioids PMFSH Active Problems Active Problems: All Active Problems (Updated 08/15/20 @ 09:55 by Danay Rubio) Malabsorption due to intolerance, not elsewhere classified (Acute) Bunion of left foot (Acute) Neck pain (Acute) Sacroiliitis (Acute) S/P panniculectomy (Acute) GERD (gastroesophageal reflux disease) (Acute) S/P laparoscopic sleeve gastrectomy (Acute) Skin laxity (Acute) Hyperlipidemia (Acute) Neutropenia (Acute) Postconcussion syndrome (Acute) Spinal stenosis (Acute) Migraines (Acute) Labral tear of right hip joint (Acute) Hypotension (Acute) Herpes (Acute) Depression (Acute) Colon polyps (Acute) Chronic sinusitis (Acute) Asthma (Acute) Status post bariatric surgery (Acute) Postlaminectomy syndrome (Acute) Orthostatic hypotension (Acute) Syncope and collapse (Acute) S/P laparoscopic sleeve gastrectomy (Acute) Past Medical History Medical History (Updated 08/22/20 @ 13:39 by Elizabeth Lowry) Allergic rhinitis Anemia Anxiety with depression Arthritis Asthma Back pain Chronic sinusitis Colon polyps COVID-19 vaccine administered Depression Fatty liver Herpes Hyperlipidemia Hypotension Labral tear of right hip joint Malabsorption due to intolerance, not elsewhere classified Migraines Neutropenia Orthostatic hypotension Postconcussion syndrome Postlaminectomy syndrome Spinal stenosis Syncope and collapse Family History Family History Father No problems noted. Mother Cervical spine tumor Brother No problems noted. Brother No problems noted. Brother No problems noted. Brother No problems noted. Sister No problems noted. Son No problems noted. Daughter No problems noted. Surgical History Surgical History (Updated 08/22/20 @ 13:39 by Elizabeth Lowry) H/O colonoscopy H/O endoscopy H/O laminectomy History of appendectomy History of endometrial ablation History of hip surgery Hx of abdominal surgery S/P bilateral foot surgery S/P laparoscopic sleeve gastrectomy S/P tonsillectomy Status post bariatric surgery Social History Social History (Updated 08/22/20 @ 13:39 by Elizabeth Lowry) Household Members: Spouse Housing: House Are you a primary acute care clinical nurse specialist to a significant other at home: No Do you presently have visiting nurse or other home services: No Alcohol intake: never Patient Tobacco Use Status: Never used Tobacco Use of substances other than those prescribed or required for medical reasons: Yes Substance Use Type: Marijuana Substance Use Frequency: Weekly Last Used Substance: Days (ago) Last Used Substance Other:: Marijuana Have you been hit, kicked, punched, or otherwise hurt by someone within the past year? If so, by whom?: No Are you DNR?: No Advance Directives Information Provided: No Recently lost weight without trying: No Eating poorly because of decreased appetite: No Nutrition Risks: No Nutritional Risk service: No Current occupational status: unemployed Meds Allergies Allergy/AdvReac Type Severity Reaction Status Date / Time Iodinated Contrast Media Allergy Intermediate HIVES Verified 08/08/20 10:19 [Iodinated Contrast Media - IV Dye] ketorolac [From Toradol] Allergy Intermediate localized Verified 08/08/20 10:19 redness/swelling Home Medications Medication Instructions Recorded Confirmed Last Taken Type calcium citrate 315 mg 1 tab PO BID 11/20/19 08/15/20 Unknown History calcium-vitamin D3 6.25 mcg (250 unit) tablet clonazepam 1 mg tablet 1 mg PO TID 11/20/19 08/15/20 08/22/20 History methylcellulose (with sugar) oral 1 tbsp PO DAILY 11/20/19 08/15/20 Unknown History powder quetiapine 100 mg tablet 100 mg PO BEDTIME 03/14/20 08/15/20 Unknown History paroxetine HCl 10 mg PO BEDTIME 06/01/20 08/15/20 Unknown History Exam Exam Date and Time: August 18, 2020 0828 Height,Weight and Vital Signs: Height 5 ft 7 in Weight 58.531 kg Pertinent Lab Results Pertinent Lab Results: Laboratory Tests 07/04/20 07/04/20 07:15 07:15 WBC 3.2 L Hgb 12.2 Hct 37.3 Plt Count 216 D Sodium 142 Potassium 4.0 Chloride 107 Carbon Dioxide 28 BUN 19 H D Creatinine 0.72 Narrative Narrative: EKG 02/2020 Vent. Rate : 062 BPM Atrial Rate : 062 BPM P-R Int : 156 ms QRS Dur : 084 ms QT Int : 410 ms P-R-T Axes : -09 -12 010 degrees QTc Int : 416 ms Normal sinus rhythm Normal ECG When compared with ECG of 10-OCT-2019 14:48, No significant change was found Assessment and Plan Assessment Anesthesia Assessment: Chart Reviewed Documented by User: Elizabeth Lowry 08/22/20 14:09 [facility] Past Medical History Medical History (Updated 08/22/20 @ 13:39 by Elizabeth Lowry) Allergic rhinitis Anemia Anxiety with depression Arthritis Asthma Back pain Chronic sinusitis Colon polyps COVID-19 vaccine administered Depression Fatty liver Herpes Hyperlipidemia Hypotension Labral tear of right hip joint Malabsorption due to intolerance, not elsewhere classified Migraines Neutropenia Orthostatic hypotension Postconcussion syndrome Postlaminectomy syndrome Spinal stenosis Syncope and collapse Family History Family History Father No problems noted. Mother Cervical spine tumor Brother No problems noted. Brother No problems noted. Brother No problems noted. Brother No problems noted. Sister No problems noted. Son No problems noted. Daughter No problems noted. Family history of problems with anesthesia: No Surgical History Surgical History (Updated 08/22/20 @ 13:39 by Elizabeth Lowry) H/O colonoscopy H/O endoscopy H/O laminectomy History of appendectomy History of endometrial ablation History of hip surgery Hx of abdominal surgery S/P bilateral foot surgery S/P laparoscopic sleeve gastrectomy S/P tonsillectomy Status post bariatric surgery History of Problems with Anesthesia: No Social History Social History (Updated 08/22/20 @ 13:39 by Elizabeth Lowry) Household Members: Spouse Housing: House Are you a primary acute care clinical nurse specialist to a significant other at home: No Do you presently have visiting nurse or other home services: No Alcohol intake: never Patient Tobacco Use Status: Never used Tobacco Use of substances other than those prescribed or required for medical reasons: Yes Substance Use Type: Marijuana Substance Use Frequency: Weekly Last Used Substance: Days (ago) Last Used Substance Other:: Marijuana Have you been hit, kicked, punched, or otherwise hurt by someone within the past year? If so, by whom?: No Are you DNR?: No Advance Directives Information Provided: No Recently lost weight without trying: No Eating poorly because of decreased appetite: No Nutrition Risks: No Nutritional Risk service: No Current occupational status: unemployed Meds Allergies Allergy/AdvReac Type Severity Reaction Status Date / Time Iodinated Contrast Media Allergy Intermediate HIVES Verified 08/08/20 10:19 [Iodinated Contrast Media - IV Dye] ketorolac [From Toradol] Allergy Intermediate localized Verified 08/08/20 10:19 redness/swelling Home Medications Medication Instructions Recorded Confirmed Last Taken Type calcium citrate 315 mg 1 tab PO BID 11/20/19 08/15/20 Unknown History calcium-vitamin D3 6.25 mcg (250 unit) tablet clonazepam 1 mg tablet 1 mg PO TID 11/20/19 08/15/20 08/22/20 History methylcellulose (with sugar) oral 1 tbsp PO DAILY 11/20/19 08/15/20 Unknown History powder quetiapine 100 mg tablet 100 mg PO BEDTIME 03/14/20 08/15/20 Unknown History paroxetine HCl 10 mg PO BEDTIME 06/01/20 08/15/20 Unknown History Exam Height,Weight and Vital Signs: Vital Signs Temp Pulse Resp BP Pulse Ox 08/22/20 11:24 97.2 F 61 20 128/46 L 100 Pertinent Lab Results Pertinent Lab Results: Lab Results 08/18/20 08/22/20 Range/Units 16:20 11:14 COVID-19 (PIETER) Negative (Negative) COVID-19 Clin Com See Note Blood Type B Positive Antibody Screen NEGATIVE Laboratory Tests 08/18/20 08/18/20 16:20 16:20 CBC WBC 4.4 Hgb 12.4 Hct 37 Plt Count 236 Chem 7 Sodium 141 Potassium 4.9 Chloride 105 Carbon Dioxide 27 BUN 14 Creatinine 0.77 Glucose 140 Coags: PT 11.1 INR 1.0 PTT 34.1 Narrative Narrative: H/o difficult intubation in the past. Intubated with glidescope- small mouth. Regular intubation 2 months ago for panniculectomy Airway Mallampati Class: III TM Dist: >3cm Neck ROM: Full Heart: RRR Lungs: CTAB Assessment and Plan Assessment Anesthesia Assessment: Anesthesia Plan Discussed and Chart Reviewed Final Anesthetic Review NPO: Yes ASA Class: III Final Preanesthetic Review: No Changes in Pt Med Stat, Meds/Allgs Chart Reviewed, Consent Obtained/Reviewed and Anes Risks/Benef Reviewed Patient Risk: Intermediate Procedure Risk: Intermediate Assessment/Block/Sedation in SS: Assess/Block/Sedation-SS Anesthetic Plan Anesthetic Plan: GA Disposition: Standard PACU and Inp. Admit - Standard Bed
--- NOTE | 2020-08-21 07:35 | MHC.SHP ---
Pre-Procedural Eval Section A Date of Service: 08/21/20 The patient is an INPATIENT: No The History & Physical has been completed within 30 days and I have reviewed it.: Yes Section B Chief Complaint: Excessive and Redundant Skin/subq tissue Details of Present Illness: cellulitis Relevant Family History (Specify if Yes): No Relevant Social History: None Present Medications: see Short Stay Collaborative assessment Medical History: No relevant PMH History of Previous Operations: Relevant previous surgery/procedure and date(s) (Sleeve gastrectomy) Allergies: Allergies Allergy/AdvReac Type Severity Reaction Status Date / Time Iodinated Contrast Media Allergy Intermediate HIVES Verified 08/08/20 10:19 [Iodinated Contrast Media - IV Dye] ketorolac [From Toradol] Allergy Intermediate localized Verified 08/08/20 10:19 redness/swelling Review of Systems Sugical H&P ROS: Negative: Constitution, Cardiovascular, Respiratory, Neurological, Psychiatric, Hem-Onc, Allergic/Immunologic, Gastrointestinal, Genitourinary, Musculoskeletal, Integumentary, Endocrine and Eyes/Ears/Nose/Throat Exam Surgical H&P Exam: Normal: HEENT, Normal: Heart, Normal: Lungs, Normal: Extremities, Normal: Abdomen, Normal: Skin and Normal: Neurological Plan I have reviewed the history and physical and performed a pertinent physical examination on my patient. No changes have occurred unless specified. Plan for bilateral brachioplasty and brachioplasty
[2020-08-22] VITALS (22 sets, daily range): BP systolic 110–161; BP diastolic 45–73; PULSE 61–114; RESP 11–20; TEMP 36–36.2; O2SAT 94–100
[2020-08-22 11:40] LABS: COVID-19 Test Negative (Negative)
--- NOTE | 2020-08-22 12:21 | PM.OP ---
Brief Operative Note Date of Service: 08/22/20 Pre-op diagnosis: Cellulitis upper arms and inner thighs Post-op diagnosis: same Procedure: PROCEDURE: Bilateral brachioplasty and thighplasty INDICATION: This a 60 year old female who underwent laparoscopic sleeve gastrectomy on 07/16/2018. She had an excellent result achieving a BMI of 20.2 kg/m2 with a total weight loss of 112lbs, or 46.4% of her TBWL. As a result, she has developed skin irritation and intetrigo in both upper arms and medial thighs. On exam she has extreme skin laxity due to massive weight loss and age with the upper arms 6 cm below the level of the triceps and friction between the inner thighs. Bilateral brachioplasty and thighplasty was recommended. Risks and complications were discussed with the patient including bleeding, infection, flap necrosis, asymmetry, dehiscence, seroma, VTE. The patient understood the risks and was in agreement to proceed with surgery. PROCEDURE: The incisions were appropriately marked at the preop area with the patient standing and laying down. After induction of general anesthesia pneumatic compression devices were placed. The patient was prepped and draped in the usual sterile manner and the incisions were marked again and confirmed. In similar fashion both upper arms and thighs were also marked when the patient was standing. The upper arms were performed first. The skin was infiltrated with lidocaine and epinephrine. Skin was excised with the #15 blade. The anterior incision was made first. I did not commit to the posterior incision until dissection was completed and I could assess the appropriate location for the posterior incision to prevent excessive tension. Cautery was used to separate the skin from subcutaneous tissues. Careful attention was paid to make sure that the plain of excision was superficial as close to the skin as possible and superior to the fascia. The right upper arm skin was 26 cm x 5.5 cm (weight: 1.2oz) and the left 24 cm x 5.5 cm (weight: 0.6oz). Skin was closed in two layers using interrupted 3.0 Monocryl sutures for the dermis and 4.0 subcuticular Monocryl suture for the skin. In a similar manner the thigh incisions were appropriately marked. The legs were flexed at the knees and abducted at the hip level. The anterior incision was made first. I did not commit to the posterior incision until dissection was completed and I could assess the appropriate location for the posterior incision to prevent excessive tension. Cautery was used to separate the skin from subcutaneous tissues. Careful attention was paid to make sure that the plain of excision was superficial as close to the skin as possible and superior to the fascia. The right thigh skin was 46 cm x 10 cm (weight: 3oz) and the left 45 cm x 10 cm (weight: 2.8oz). Skin was closed in two layers using interrupted 3.0 Monocryl sutures for the dermis and 4.0 subcuticular Monocryl suture for the skin. The patient was extubated and was transferred in a stable condition at the recovery room. I was present and performed all steps of the procedure. There were no residents available to assist. Ms. Cathy Washington PA-C was the or first assist registered nurse. Enrique Caal MD, PhD, FACS Surgeon: Pepe Caal MD Anesthesia: GETA and local Was an Transmission And Protection Engineer used for this Procedure?: No Transmission And Protection Engineer: Cathy Washington Estimated blood loss (mL): 10 IV fluids (mL): 2,500 Urine output (mL): 0 (No Rajput to record) Pathology: other (bilateral upper arm skin, bilateral inner thigh skin) Condition: stable Disposition: PACU
--- NOTE | 2020-08-22 12:23 | PM.PNGS ---
Subjective Subjective Date of Service: 08/23/20 Interval history: Patient had significant incisional pain particularly on let thigh and left upper arm requiring IV opioids. Additionally she was somewhat tachycardic and with mild hypotension due to bleeding at left thigh. Dressings were reinforced last night by nurse in communication with me. All dressings were taken down. Incisions are intact without flap necrosis. Mild bloody drainage at left thigh and ecchymosis at left inguinal region. Patient is still weak to ambulate or go to the bathroom and had to be straight cathed. Physical Exam Vital Signs: Vital Signs: Last Vital Signs Temp 97.2 F 08/22/20 11:24 Pulse 61 08/22/20 11:24 Resp 20 08/22/20 11:24 BP 128/46 L 08/22/20 11:24 Pulse Ox 100 08/22/20 11:24 Body Mass Index 20.2 Extrem: General: Yes full ROM and Yes capillary refill normal Right upper extremity: full ROM, normal capillary refill and shoulder/upper arm (incision clean, dry and intact) Left upper extremity: normal to inspection, full ROM and shoulder/upper arm (incision clean, dry and intact) Right lower extremity: normal to inspection (no calf tenderness), full ROM, normal capillary refill and hip/thigh (incision clean, dry and intact) Left lower extremity: normal to inspection (no calf tenderness), full ROM, normal capillary refill and hip/thigh (incision clean, dry and intact) Progress Note: A&P Assessment and plan (1) Skin laxity: Status: Acute Assessment and Plan: All dressings were changed. Patient will need to stay today as inpatient due to significant pain, weakness and bleeding. Hemoglobin was dropped from 12.4 to 9.6. Phase 3 bariatric diet (2) Abscess or cellulitis of knee: Status: Acute Fall Risk Details Current Medications: Current Medications Generic Name Dose Route Start Last Admin Trade Name Freq PRN Reason Stop Dose Admin Albuterol Sulfate 2.5 mg 08/22/20 11:13 Albuterol Sulfate (0.083%) 2.5 Mg/3 Ml Vial.Neb INHALE ONCE PRN Shortness of Breath/Wheezing Lactated Ringer's 1,000 mls @ 80 mls/hr 08/21/20 07:45 Lr IVCONT .[id number] HAY Lactated Ringer's 1,000 mls @ 100 mls/hr 08/22/20 11:15 Lr IVCONT .Q10H HAY Time Spent With Patient Time: Total time spent is greater than 50% in coordination of care (as documented) at patient's floor/unit and/or counseling patient: Time with patient: 25 - 35 minutes Procedures Date of Service Date of Service: 08/23/20 Quality Stroke Does the patient have a stroke diagnosis?: No VTE Prior VTE?: No VTE Risk Level:: Surgical - moderate VTE Device Contraindication: N/A - Device Ordered VTE Drug Contraindication: Treatment Not Indicated
[2020-08-22] MEDS: Lactated Ringers 1,000 ML 100 ML IVCONT ×2 (12:33→21:44)
[2020-08-22] MEDS: ceFAZolin Sodium/Dextrose,Iso 2 GM/50 ML PIGGYBACK IV ×2 (12:33→21:36)
--- NOTE | 2020-08-22 17:36 | P.DS_ITS ---
DS: Providers Provider Date of Service: 08/25/20 Date of admission: 08/22/20 10:09 Primary care physician: Corinne Figueroa MD DS: Diagnosis Discharge Diagnosis (1) Skin laxity: Status: Acute (2) Abscess or cellulitis of knee: Status: Acute DS: Medications Discharge Medications Home Medications: Home Medications Medication Instructions Recorded Confirmed calcium citrate 315 mg 1 tab PO BID 11/20/19 08/15/20 calcium-vitamin D3 6.25 mcg (250 unit) tablet clonazepam 1 mg tablet 1 mg PO TID 11/20/19 08/15/20 methylcellulose (with sugar) oral 1 tbsp PO DAILY 11/20/19 08/15/20 powder quetiapine 100 mg tablet 100 mg PO BEDTIME 03/14/20 08/15/20 paroxetine HCl 10 mg PO BEDTIME 06/01/20 08/15/20 Previous Rx's Medication Instructions Recorded lidocaine 5 % topical patch 1 patch TOPICAL DAILY #30 ea 12/20/19 mecobalamin (vitamin B12) 1,000 1,000 mcg PO DAILY #30 tab 01/27/20 mcg chewable tablet fluticasone propionate 50 1 spray INTRANASAL DAILY #16 g 03/16/20 mcg/actuation nasal spray,suspension jlcjixsgzy-vpxfcrocbieiy-tmgfupqn 1 tab PO Q4H PRN #30 tab 05/15/20 50 mg-325 mg-40 mg tablet bismuth tribrom-petrolatum,wh 1 X #200 ea 05/30/20 8 bandage fluticasone furoate 200 1 inh INHALATION DAILY #60 ea 05/30/20 mcg-vilanterol 25 mcg/dose inhalation powder gabapentin 600 mg tablet 600 mg PO BID #180 tab 05/30/20 valacyclovir 1 gram tablet 1,000 mg PO Q8H #90 tab 06/26/20 bismuth tribrom-petrolatum,wh 1 X #200 ea 08/04/20 8 bandage cephalexin 500 mg capsule 500 mg PO Q12H #28 cap 08/04/20 oxycodone-acetaminophen 5 mg-325 1 tab PO Q6H PRN 30 Days #120 tab 08/08/20 mg tablet albuterol sulfate 90 mcg/actuation 2 puff INHALATION Q4-6H PRN #8.5 g 08/14/20 aerosol inhaler DS: Summary Time Spent with Patient Time attestation: DISCHARGE SUMMARY ADMITTING DIAGNOSIS: cellulitis, s/p lap LSG DISCHARGE DIAGNOSIS: The same, s/p bilteral barachioplasty and bilateral thighplasty PAST SURGICAL HISTORY: Lap LSG, panniculectomy, appendectomy PROCEDURE: Panniculectomy. HISTORY OF PRESENT ILLNESS: The patient is a 60 year-old woman with a BMI of 20.2 kg/m2. The patient had a laparoscopic LSG in 2019 and has lost a total of 112 lbs, or 46.47% of her initial weight and her BMI reduced to 20.2 kg/m2. As a result of the massive weight loss she developed significant skin laxity or her upper arms and legs resulting in cellulitis recalcitrant to medical treatment. The patient was electively scheduled for brachioplasty and thighplasty. Risks and complications of the surgery were discussed with the patient in advance, particularly the possibility of , pulmonary embolism, skin necrosis, loss of umbilicus, flap necrosis, wound dehiscence, flap asymmetry, bleeding requiring transfusion. The patient understood all the risks and was in agreement with the surgical plan. On postoperative day #0 the patient was started on bariatric phase 6 diet. During the first day, the patient did fairly well, having some incisional pain, but able to ambulate adequately and to tolerate liquids well. Upper left arm and leg dressings became saturated on POD #0 and needed to be changed multiple times. All dressings were taken down and the all incisions were inspected. There was no evidence of infection or bleeding or significant discharge. All flaps were viable. Pt had a drop in her Hgb to 8.6 and then stablized at 9.3. She remained in hospital with dry incisions until POD #3. Since the patient is doing well, we decided that the patient was ready to be discharged. The patient was given instructions to follow-up with me next week and to call my office for any fever over 101, persistent abdominal pain, nausea, vomiting, and symptoms of DVT such as calf tenderness, or leg swelling, or pulmonary embolism such as chest pain or shortness of breath. The patient was also instructed to drink 40-60 ounces of liquids per day. The patient was given prescription for Tylenol for pain, Zofran prn for nausea and a 10-day course of Keflex twice a day. The patient was encouraged to ambulate and use the incentive spirometer. However it was strongly recommended to do so with assistance and avoid any tension on her arms or legs for at least one month. The patient was allowed only to do sponge baths, and encouraged to use the recliner at home and not the bed. All of these instructions were given to the patient personally. All questions were answered and the patient understood all instructions. The instructions were given to the patient in print as well. Total time spent providing and/or coordinating discharge services: 25 Discharge coordination time: Less than 30 minutes Quality: Stroke Does the patient have a stroke diagnosis?: No Physical Exam Vital Signs: Vital Signs: Last Vital Signs Temp 97.2 F 08/22/20 11:24 Pulse 61 08/22/20 11:24 Resp 20 08/22/20 11:24 BP 128/46 L 08/22/20 11:24 Pulse Ox 100 08/22/20 11:24 Body Mass Index 20.2 DS: Data Data Completed and Pending Completed studies during hospitalization [Text1]: Procedures Excision of Abdomen Subcutaneous Tissue and Fascia, Open Approach (06/08/20) Transfer Abdomen Subcutaneous Tissue and Fascia with Skin and Subcutaneous Tissue, Open Approach (06/08/20) Pending studies at discharge: Pending at discharge 08/22/20 16:01 Surgical [PTH] Routine Labs on day of discharge: Laboratory Results - last 24 hr 08/22/20 11:14 COVID-19 (PIETER) Negative COVID-19 Clin Com See Note Discharge Plan Discharge Anticipated Discharge Date/Time: 08/23/20 12:30 Patient Disposition: Home Health Service Discharge Diagnosis: s/p bilteral brachioplasty and thighplasty Referrals: [facility] [Outside] - 1 Day ([facility] FOR [facility] FOR POST SURGICAL DISCHARGE ASSESSMENT, PAIN MANAGEMENT, MEDICATION RECONCILATION AND DRESSING CHANGES. PCP DR CORINNE LEPE PLEASE CALL FOR POST HOS[facility]ITLA DISCHARGE FOLLOW UP TRANSPORTATION FAMILY ) Corinne Figueroa MD [Primary Care Provider] - 1 Week Discharge Medications: Continued lidocaine 5 % adhesive patch,medicated 1 patch topical DAILY Qty: 30 RF: 6 mecobalamin (vitamin B12) 1,000 mcg tablet,chewable 1,000 mcg PO DAILY Qty: 30 RF: 5 fluticasone propionate 50 mcg/actuation spray,suspension 1 spray intranasal DAILY Qty: 16 RF: 3 wevtjtnjal-xvbrrxptxkqok-tjip 50-325-40 mg tablet 1 tab PO Q4H PRN (Reason: pain) Qty: 30 RF: 2 Breo Ellipta 200-25 mcg/dose blister with device 1 inh inhalation DAILY Qty: 60 RF: 6 gabapentin 600 mg tablet 600 mg PO BID Qty: 180 RF: 3 valacyclovir [Valtrex] 1 gram tablet 1,000 mg PO Q8H Qty: 90 RF: 1 albuterol sulfate [ProAir HFA] 90 mcg/actuation HFA aerosol inhaler 2 puff inhalation Q4-6H PRN (Reason: shortness of breath or wheezing) Qty: 8.5 RF: 6 paroxetine HCl 10 mg Tablet 10 mg PO BEDTIME RF: 0 clonazepam 1 mg tablet 1 mg PO TID RF: 0 calcium citrate-vitamin D3 315 mg- 250 unit tablet 1 tab PO BID RF: 0 Citrucel (sucrose) Powder 1 tbsp PO DAILY RF: 0 (DME) Xeroform Petrolatum Dressing 1 X 8 bandage See Rx Instructions .ROUTE .MEDSUPPLY Qty: 200 RF: 1 oxycodone-acetaminophen 5-325 mg tablet 1 tab PO Q6H PRN (Reason: pain) 30 Days Qty: 120 RF: 0 quetiapine 100 mg tablet 100 mg PO BEDTIME RF: 0 cephalexin 500 mg capsule 500 mg PO Q12H Qty: 28 RF: 1 Discontinued (DME) Xeroform Petrolatum Dressing 1 X 8 bandage See Rx Instructions .ROUTE .MEDSUPPLY Qty: 200 RF: 0 No Action oxycodone-acetaminophen [Percocet] 5-325 mg tablet 1 tab PO Q4-6H PRN (Reason: pain) Qty: 20 RF: 0 Discharge Orders: Discharge Order (Routine); Ordered 08/25/20 Ordered By: Pepe Caal Diet: advance to usual diet Activity on Discharge: No heavy lifting Stand Alone Forms: Patient Portal Discharge page Activity Restrictions/Additional Instructions: 1) Start Keflex antibiotic 2) No showers. Only sponge baths 3) Avoid any tension on the arms and legs and always have help getting up. Keep them elevated 4) Take 1 tab of Colace and one tablespoon of Metamucil daily Diet: 4 Celebrate protein shakes with 1 scoop in 8oz of almond milk each one, or 3 shakes and one bar, or 3 shakes and one meal (2oz meat and 2oz salad) 5) Change dressings daily and send pictures to Dr. Caal. Replace loose steri-strips and xeroform gauze along the incisions. 6) Supplies needed: Kerlex rolls, 4x4 dressings, xeroform gauze, 1/2'' steri-str ips, paper tape. You will need to use several of the above supplies on a daily basis. 7) Avoid heavy lifting for 3 weeks 8) Take Tylenol 500mg every 4 hours, around the clock for the next 3-4 days. If pain has improved you may slowly reduce its frequency 9) Avoid aspirin, Motrin, Aleve, Advil, Naproxyn, Ibuprofen for 2 weeks 7) Call Dr. Caal at [phone] for fever >101F, persistent incisional pain,, discharge from any of the incisions, swelling, redness, shortness of breath, calf pain. Care Plan Goals: resolution of cellulitis Health Concerns: cellulitis Plan of Treatment: see discharge instructions Assessment: stable POD #1 bilateral brachioplasty and thighplasty Discharge Date/Time: 08/25/20 09:46
[2020-08-22] MEDS: HYDROmorphone HCl 0.5 MG/0.5 ML SYRINGE 0.25 MG IVPUSH ×4 (17:50→18:10)
[2020-08-22] MEDS: fentaNYL citrate/PF 100 MCG/2 ML VIAL 25 MCG IVPUSH (18:45)
[2020-08-22] MEDS: oxyCODONE HCl Immed Release 5 MG TABLET PO (21:20)
[2020-08-22] MEDS: QUEtiapine Fumarate 100 MG TABLET PO (21:36)
[2020-08-22] MEDS: clonazePAM 1 MG TABLET PO (21:36)
[2020-08-22] MEDS: Gabapentin 600 MG TABLET PO (21:36)
[2020-08-22] MEDS: ondansetron HCL 4 MG/2 ML VIAL IVPUSH (21:36)
[2020-08-23] VITALS (9 sets, daily range): BP systolic 107–142; BP diastolic 47–69; PULSE 69–76; RESP 16–20; TEMP 36–37.3; O2SAT 94–100
[2020-08-23] MEDS: ondansetron HCL 4 MG/2 ML VIAL IVPUSH ×4 (03:58→20:12)
[2020-08-23] MEDS: ceFAZolin Sodium/Dextrose,Iso 2 GM/50 ML PIGGYBACK IV ×3 (03:59→20:15)
[2020-08-23] MEDS: oxyCODONE HCl Immed Release 5 MG TABLET PO ×3 (03:59→13:30)
[2020-08-23] MEDS: HYDROmorphone HCl 0.5 MG/0.5 ML SYRINGE 0.25 MG IVPUSH ×4 (05:53→20:12)
[2020-08-23] MEDS: Lactated Ringers 1,000 ML 100 ML IVCONT ×2 (05:58→17:30)
[2020-08-23 06:32] LABS: MANUAL DIFF FLAG NO
[2020-08-23 06:49] LABS: Basophils Percent Auto 0.1 % (0-2); Hematocrit 29.6 % (37-47); Imm Gran Abs Auto 0.02 X10*3/uL (0.00-0.03); Imm Gran Pct Auto 0.3 % (0.0-0.4); Lymphocytes Absolute Auto 1.3 X10*3/uL (1.2-4.9); Lymphocytes Percent Auto 17.9 % (20-40); Mean Corpuscular HGB Conc 32.4 g/dl (31.0-35.0); Mean Corpuscular Hemoglobin 31.4 pg (27.0-33.0); Mean Corpuscular Volume 96.7 fL (80-98); Monocytes Absolute Auto 0.7 X10*3/uL (0.1-1.2); Monocytes Percent Auto 10.2 % (2-11); Neutrophils Percent Auto 71.5 % (45-73); Platelet Count 193 X10*3/uL (160-400); Red Blood Count 3.06 X10*6/uL (4.20-5.50); Red Cell Distribution Width 12.9 % (11.0-16.0)
[2020-08-23 07:03] LABS: Anion Gap 13 (12-20); Blood Urea Nitrogen 12 mg/dL (9-16); Calcium 8.4 mg/dL (8.4-10.2); Carbon Dioxide 26 mmol/L (22-29); Chloride 105 mmol/L (96-108); Creatinine Clr Calc Pharmacy 90.3; Estimated Glomerular Filt Rate > 60; Glucose Random 113 mg/dL (60-115); Potassium 4.4 mmol/L (3.3-5.1); Sodium 140 mmol/L (135-145)
[2020-08-23 07:12] LABS: Hemoglobin 9.6 g/dl (12.0-16.0)
[2020-08-23] MEDS: 0.9 % Sodium Chloride Flush 3 ML SYRINGE IVFLUSH (08:03)
[2020-08-23] MEDS: clonazePAM 1 MG TABLET PO ×3 (08:03→20:12)
[2020-08-23] MEDS: Gabapentin 600 MG TABLET PO ×2 (08:03→20:15)
[2020-08-23] MEDS: Fluticasone/Vilanterol 200/25 BLST.W.DEV 1 PUFF INHALE (08:25)
[2020-08-23] MEDS: Butalb/Acetamin/Caff 50/325/40 TABLET 1 TAB PO ×3 (09:17→17:59)
--- NOTE | 2020-08-23 09:30 | W.MHC.F2F ---
Service Date Service Date: 08/23/20 Reasons for Services Homebound: Leaving the home is medically contraindicated at this time without the assist of a device and/or another person due the listed conditions above and below. Patient underwent bilateral brachioplasties and bilateral thighplasties and is unable to ambulate out side of her home, she can not drive. She needs assistance with daily dressing changes at home. Certification: Based on the above findings, I certify that this patient is confined to the home and needs intermittent custodial care, physical therapy and/or speech therapy, or continues to need occupational therapy. The patient is under my care, and I have initiated the establishment of the plan of care. The patient will be followed by a physician who will periodically review the plan of care.
--- NOTE | 2020-08-23 09:51 | MHC.CM.PN ---
NURSE RESIDENT INTERN NOTE [employer] ; RECORD REVIEWED ALONG WITH CASE DISCUSSED WITH LEONEL NURSE MET WITH PATIENT , SHE LIVES WITH HER (WHOM IS OUT ON WORKMANS COMP SECONDARY TO BACK INJURY, SHE ALSO HAS HER GRANDCHILDREN FOR THE SUMMARER AGES 8YS AND 15 YRS . PRIOR TO THIS SURGERY SHE WAS INDEPENDENT IN ALL ADLS AND MOBILITY, SHE CONIOTNUES ON IV PAIN MEDICATIONS AND WILL NEED TO BE SWITCHED OVER TO ORAL MEDICATIONS. BEFORE DISCHARGE , ANTICIPATE SHE WILL BE DISCHARGED HOME TODAY OR TOMORROW, AND WILL REAUIRE VNA FOR DRESSING CHANGES . REVIEWED THE VNA WITH HER AND SHE CHOSE THE [facility] DISCHARGE PLAN NEEW REFERRAL TO THE [facility] FOR [facility]URSING FOR SURGICAL ASSESSMENT PAIN MANAGEMENT , MEDICATION RECONCILATION AND DRESSING CHANGES (SPOKE WITH PEDRO STEVE AT THE [facility] , THEY HAVE CLINICALLY ACCEPTED HER Xnd called to [facility] for insurance auth self resumption of her mental health cpounseling services pcp dr iglesia thompson instructed to call for post hospitla discharge follow up transportation family medicare imm meSSAGE EXPLAINED AND GIVEN TO PATIENT WITH ATTACHED NAME CARD REQUESTED COPY OF HEALTH CARE PROXY BE BROUGHT IN OR MAILED TO [facility] MEDICAL RECORDS PSOT DISCHARGE
--- NOTE | 2020-08-23 10:15 | HO.POSTANES ---
Post Anesthesia Evaluation Post Anesthesia Evaluation Vital Signs: Vital Signs Temp Pulse Resp BP Pulse Ox 08/23/20 08:30 75 08/23/20 07:43 97.3 F 72 17 142/60 H 98 08/23/20 03:50 96.9 F 76 18 107/55 L 100 08/23/20 00:00 96.8 F 76 17 126/69 100 Anesthesia: General Mental Status: Awake Pain Control: Satisfactory Nausea/Vomiting: None Hydration: Adequate Anesthesia-Related Issues: No Anes. Related Issues
--- NOTE | 2020-08-23 12:14 | P.CDIC_ITS ---
CDI Concurrent Query Service Date: 08/24/20 Documentation Clarification: Please clarify if you are treating a proba ble/suspected/likely or confirmed: Acute Blood Loss Anemia. I TREAT ACTUTE BLOOD LOSS ANEMIA No Acute Blood Loss Anemia Other, please specify Provider Response: Anemia PLEASE DO NOT DELETE/MODIFY EXISTING CONTENT Additional information is needed in order to code to the highest accuracy and appropriate Severity of Illness (SOI). Please clarify the information noted below in your progress notes and discharge summary. Risk Factors/Clinical Indicators/Treatments s/p 08/22/20 bilateral brachioplasty and bilateral thighplasty Per progress note 08/22/20: tachycardic, mild hypotension due to bleeding left thigh HGB dropped from 12.4 to 9.6 CDS: Claire Bah RN Contact Number: [phone] Please Review the information above and exercise your independent professional judgment in responding to the query. If you concur, pleas document in the PROGRESS NOTES and DISCHARGE SUMMARY. If you do not agree with the query, please document in the query above. THIS QUERY IS PART OF THE PERMANENT MEDICAL RECORD
[2020-08-23 17:42] LABS: Hematocrit 27.9 % (37-47); Hemoglobin 8.9 g/dl (12.0-16.0); Mean Corpuscular HGB Conc 31.9 g/dl (31.0-35.0); Mean Corpuscular Hemoglobin 31.2 pg (27.0-33.0); Mean Corpuscular Volume 97.9 fL (80-98); Mean Platelet Volume 9.7 fL (9.4-12.3); Platelet Count 178 X10*3/uL (160-400); Red Blood Count 2.85 X10*6/uL (4.20-5.50); White Blood Count 6.6 X10*3/uL (4.8-10.8)
[2020-08-23] MEDS: QUEtiapine Fumarate 100 MG TABLET PO (20:11)
[2020-08-23] MEDS: PARoxetine HCL 10 MG TABLET PO (20:12)
[2020-08-24] VITALS (8 sets, daily range): BP systolic 102–142; BP diastolic 48–60; PULSE 64–72; RESP 14–18; TEMP 35.9–37.1; O2SAT 95–100
[2020-08-24] MEDS: oxyCODONE HCl Immed Release 5 MG TABLET PO ×4 (00:03→19:48)
[2020-08-24] MEDS: Butalb/Acetamin/Caff 50/325/40 TABLET 1 TAB PO ×4 (01:27→21:00)
[2020-08-24] MEDS: Lactated Ringers 1,000 ML 100 ML IVCONT ×3 (03:39→22:31)
[2020-08-24] MEDS: HYDROmorphone HCl 0.5 MG/0.5 ML SYRINGE 0.25 MG IVPUSH ×5 (03:44→22:31)
[2020-08-24] MEDS: ondansetron HCL 4 MG/2 ML VIAL IVPUSH ×3 (04:23→19:47)
[2020-08-24] MEDS: ceFAZolin Sodium/Dextrose,Iso 2 GM/50 ML PIGGYBACK IV ×3 (05:29→19:49)
[2020-08-24 07:04] LABS: MANUAL DIFF FLAG NO
[2020-08-24 07:10] LABS: Basophils Percent Auto 0.6 % (0-2); Eosinophils Percent Auto 0.6 % (0-4); Hematocrit 28.6 % (37-47); Hemoglobin 9.3 g/dl (12.0-16.0); Imm Gran Abs Auto 0.01 X10*3/uL (0.00-0.03); Imm Gran Pct Auto 0.2 % (0.0-0.4); Lymphocytes Percent Auto 39.7 % (20-40); Mean Corpuscular HGB Conc 32.5 g/dl (31.0-35.0); Mean Corpuscular Hemoglobin 31.6 pg (27.0-33.0); Mean Corpuscular Volume 97.3 fL (80-98); Mean Platelet Volume 9.9 fL (9.4-12.3); Monocytes Absolute Auto 0.7 X10*3/uL (0.1-1.2); Monocytes Percent Auto 13.7 % (2-11); Neutrophils Absolute Auto 2.3 X10*3/uL (2.0-8.3); Neutrophils Percent Auto 45.2 % (45-73); Platelet Count 171 X10*3/uL (160-400); Red Blood Count 2.94 X10*6/uL (4.20-5.50); White Blood Count 5.1 X10*3/uL (4.8-10.8)
--- NOTE | 2020-08-24 07:42 | PM.PNGS ---
Subjective Subjective Date of Service: 08/24/20 Interval history: Patient feels better but continued to have significant pain requiring IV opioid narcotics. Required several dressing changes (which is quite extensive) in the thighs due to ongoing bloody drainage. Hb last night dropped to 8.9 but stabilized today to 9.3. Is tolerating phase 3 bariatric diet. All dressings were changed today and incisions are all healing well. No dehiscence, erythema or necrosis. Mild edema. Was able to ambulate without dizziness and use the bathroom herself. Physical Exam Vital Signs: Vital Signs: Last Vital Signs Temp 97.8 F 08/24/20 07:35 Pulse 69 08/24/20 07:35 Resp 16 08/24/20 07:35 BP 142/60 H 08/24/20 07:35 Pulse Ox 97 08/24/20 07:35 Body Mass Index 20.2 Extrem: Right upper extremity: full ROM and elbow/forearm (incision clean, dry and intact. No erythema, dehiscence, edema) Left upper extremity: full ROM and shoulder/upper arm (incision clean, dry and intact. No erythema, dehiscence, edema) Right lower extremity: normal to inspection (no calf tenderness), full ROM and hip/thigh (incision clean, dry and intact. No erythema, dehiscence, edema) Left lower extremity: normal to inspection (no calf tenderness), full ROM and hip/thigh (incision clean, dry and intact. No erythema, dehiscence, edema) Progress Note: A&P Assessment and plan (1) Cellulitis: Status: Acute (2) Postoperative bleeding from incision: Status: Acute Assessment and Plan: Doing better. Continue present diet and assess patient with more ambulation today. If she tolerates that and pain is better controlled, will be discharged later today with a VNA. All instructions were provided to the patient by me and she understood. Fall Risk Details Current Medications: Current Medications Generic Name Dose Route Start Last Admin Trade Name Freq PRN Reason Stop Dose Admin Acetaminophen/Butalbital/Caffeine 1 tab 08/23/20 08:53 08/24/20 05:27 Butalb/Acetamin/Caff 50/325/40 Tablet PO 1 tab Q4H PRN Administration pain Albuterol Sulfate 2 puff 08/22/20 20:58 Albuterol Sulfate 90 Mcg 8 Gm Inhaler INHALE Q4H PRN shortness of breath or wheezing Clonazepam 1 mg 08/22/20 21:00 08/23/20 20:12 Clonazepam 1 Mg Tablet PO 1 mg TID HAY Administration Fluticasone/Vilanterol 1 puff 08/23/20 08:00 08/23/20 08:25 Fluticasone/Vilanterol 200/25 Blst.W.Dev INHALE 1 puff RDAILY HAY Administration Gabapentin 600 mg 08/22/20 21:00 08/23/20 20:15 Gabapentin 600 Mg Tablet PO 600 mg BID HAY Administration Hydromorphone HCl 0.25 mg 08/22/20 20:58 08/24/20 03:44 Hydromorphone Hcl 0.5 Mg/0.5 Ml Syringe IVPUSH 0.25 mg Q4H PRN Administration Pain, Moderate (Pain Scale 4-6 Lactated Ringer's 1,000 mls @ 100 mls/hr 08/22/20 20:58 08/24/20 03:39 Lr IVCONT 100 mls/hr .Q10H HAY Administration Cefazolin Sodium/Dextrose 2 gm in 50 mls @ 100 mls/hr 08/22/20 21:00 08/24/20 06:17 Ancef IV Infused Q8H HAY Infusion Ondansetron HCl 4 mg 08/22/20 21:00 08/24/20 04:23 Ondansetron Hcl 4 Mg/2 Ml Vial IVPUSH 4 mg Q8H HAY Administration Oxycodone HCl 5 mg 08/22/20 21:04 08/24/20 06:37 Oxycodone Hcl Immed Release 5 Mg Tablet PO 5 mg Q6H PRN Administration Pain, Severe (Pain Scale 7-10) Paroxetine HCl 10 mg 08/22/20 21:00 08/23/20 20:12 Paroxetine Hcl 10 Mg Tablet PO 10 mg BEDTIME HAY Administration Quetiapine Fumarate 100 mg 08/22/20 21:00 08/23/20 20:11 Quetiapine Fumarate 100 Mg Tablet PO 100 mg BEDTIME HAY Administration Sodium Chloride 3 ml 08/23/20 00:00 08/24/20 00:21 0.9 % Sodium Chloride Flush 3 Ml Syringe IVFLUSH Not Given QSHIFT HAY Time Spent With Patient Time: Total time spent is greater than 50% in coordination of care (as documented) at patient's floor/unit and/or counseling patient: Time with patient: 25 - 35 minutes Procedures Date of Service Date of Service: 08/24/20 Quality Stroke Does the patient have a stroke diagnosis?: No VTE Prior VTE?: No VTE Risk Level:: Surgical - moderate VTE Device Contraindication: N/A - Device Ordered VTE Drug Contraindication: Treatment Not Indicated
[2020-08-24] MEDS: Fluticasone/Vilanterol 200/25 BLST.W.DEV 1 PUFF INHALE (08:09)
[2020-08-24] MEDS: Gabapentin 600 MG TABLET PO ×2 (08:51→19:48)
[2020-08-24] MEDS: clonazePAM 1 MG TABLET PO ×3 (08:51→19:48)
--- NOTE | 2020-08-24 14:39 | PC.NURSE ---
Skin/wound assessment completed today. Patient has surgical incisions and bruising on bilateral arms and bilateral thighs. Dressing changed by Dr. Caal and reinforced by myself. No other skin issues were found.
--- NOTE | 2020-08-24 14:52 | MHC.CM.PN ---
nurse childcare aide note per documentation by staff nurse, patients surgical incisions and brusing on bilateral arms and bilateral thighs,dressings changes by bariatric suurgeon, spoke with bariatric surgeon and patient will be discharged tomorrow and nurrsing to start on , [facility] Skin/wound assessment completed today. Patient has surgical incisions and bruising on bilateral arms and bilateral thighs. Dressing changed by Dr. Caal and reinforced by myself. No other skin issues were found. Initialized on 08/24/20 14:39 - EN
--- NOTE | 2020-08-24 15:12 | PM.PNGS ---
Subjective Subjective Date of Service: 08/25/20 Interval history: Feels better today. Yesterday continued to have significant incisional pain particularly at left thigh and required IV Dilaudid. Tolerating phase 3 bariatric diet. Is able to ambulate but was a little dizzy yesterday. Dressings were changed. Physical Exam Vital Signs: Vital Signs: Last Vital Signs Temp 97.3 F 08/24/20 11:23 Pulse 64 08/24/20 11:23 Resp 16 08/24/20 11:23 BP 116/51 L 08/24/20 11:23 Pulse Ox 98 08/24/20 12:00 Body Mass Index 20.2 Extrem: Right upper extremity: full ROM and shoulder/upper arm (incision clean, dry and intact without dehiscence, drainage or erythema) Left upper extremity: full ROM and shoulder/upper arm (incision clean, dry and intact without dehiscence, drainage or erythema) Right lower extremity: normal to inspection (no calf tenderness), full ROM and hip/thigh (incision clean, dry and intact without dehiscence, drainage or erythema) Left lower extremity: normal to inspection (no calf tenderness), full ROM and hip/thigh (incision clean, dry and intact without dehiscence, drainage or erythema) Progress Note: A&P Assessment and plan (1) Postoperative bleeding from incision: Status: Acute Assessment and Plan: s/p bilateral brachioplasty and thighplasty Doing better Will discharge today on VNA (2) Cellulitis: Status: Acute Fall Risk Details Current Medications: Current Medications Generic Name Dose Route Start Last Admin Trade Name Freq PRN Reason Stop Dose Admin Acetaminophen/Butalbital/Caffeine 1 tab 08/23/20 08:53 08/24/20 12:08 Butalb/Acetamin/Caff 50/325/40 Tablet PO 1 tab Q4H PRN Administration pain Albuterol Sulfate 2 puff 08/22/20 20:58 Albuterol Sulfate 90 Mcg 8 Gm Inhaler INHALE Q4H PRN shortness of breath or wheezing Clonazepam 1 mg 08/22/20 21:00 08/24/20 08:51 Clonazepam 1 Mg Tablet PO 1 mg TID HAY Administration Fluticasone/Vilanterol 1 puff 08/23/20 08:00 08/24/20 08:09 Fluticasone/Vilanterol 200/25 Blst.W.Dev INHALE 1 puff RDAILY HAY Administration Gabapentin 600 mg 08/22/20 21:00 08/24/20 08:51 Gabapentin 600 Mg Tablet PO 600 mg BID HAY Administration Hydromorphone HCl 0.25 mg 08/22/20 20:58 08/24/20 14:44 Hydromorphone Hcl 0.5 Mg/0.5 Ml Syringe IVPUSH 0.25 mg Q4H PRN Administration Pain, Moderate (Pain Scale 4-6 Lactated Ringer's 1,000 mls @ 100 mls/hr 08/22/20 20:58 08/24/20 13:20 Lr IVCONT 100 mls/hr .Q10H HAY Administration Cefazolin Sodium/Dextrose 2 gm in 50 mls @ 100 mls/hr 08/22/20 21:00 08/24/20 13:56 Ancef IV Infused Q8H HAY Infusion Ondansetron HCl 4 mg 08/22/20 21:00 08/24/20 13:12 Ondansetron Hcl 4 Mg/2 Ml Vial IVPUSH 4 mg Q8H HAY Administration Oxycodone HCl 5 mg 08/22/20 21:04 08/24/20 13:13 Oxycodone Hcl Immed Release 5 Mg Tablet PO 5 mg Q6H PRN Administration Pain, Severe (Pain Scale 7-10) Paroxetine HCl 10 mg 08/22/20 21:00 08/23/20 20:12 Paroxetine Hcl 10 Mg Tablet PO 10 mg BEDTIME HAY Administration Quetiapine Fumarate 100 mg 08/22/20 21:00 08/23/20 20:11 Quetiapine Fumarate 100 Mg Tablet PO 100 mg BEDTIME HAY Administration Sodium Chloride 3 ml 08/23/20 00:00 08/24/20 08:46 0.9 % Sodium Chloride Flush 3 Ml Syringe IVFLUSH Not Given QSHIFT HAY Time Spent With Patient Time: Total time spent is greater than 50% in coordination of care (as documented) at patient's floor/unit and/or counseling patient: Time with patient: 25 - 35 minutes Procedures Date of Service Date of Service: 08/25/20 Quality Stroke Does the patient have a stroke diagnosis?: No VTE Prior VTE?: No VTE Risk Level:: Surgical - moderate VTE Device Contraindication: N/A - Device Ordered VTE Drug Contraindication: Treatment Not Indicated
[2020-08-24] MEDS: QUEtiapine Fumarate 100 MG TABLET PO (19:49)
[2020-08-24] MEDS: PARoxetine HCL 10 MG TABLET PO (19:49)
[2020-08-25] MEDS: Butalb/Acetamin/Caff 50/325/40 TABLET 1 TAB PO ×2 (00:49→05:27)
[2020-08-25] MEDS: oxyCODONE HCl Immed Release 5 MG TABLET PO ×2 (02:39→08:44)
[2020-08-25 03:54] VITALS: BP 112/65; PULSE 66; RESP 14; TEMP 36.1; O2SAT 97
[2020-08-25] MEDS: ceFAZolin Sodium/Dextrose,Iso 2 GM/50 ML PIGGYBACK IV (04:03)
[2020-08-25] MEDS: ondansetron HCL 4 MG/2 ML VIAL IVPUSH (04:03)
[2020-08-25] MEDS: HYDROmorphone HCl 0.5 MG/0.5 ML SYRINGE 0.25 MG IVPUSH ×2 (04:08→07:59)
[2020-08-25 05:53] LABS: MANUAL DIFF FLAG NO
[2020-08-25 06:05] LABS: Basophils Percent Auto 0.7 % (0-2); Eosinophils Absolute Auto 0.1 X10*3/uL (0.0-0.4); Eosinophils Percent Auto 1.4 % (0-4); Hematocrit 29.9 % (37-47); Hemoglobin 9.8 g/dl (12.0-16.0); Lymphocytes Absolute Auto 1.8 X10*3/uL (1.2-4.9); Lymphocytes Percent Auto 41.8 % (20-40); Mean Corpuscular HGB Conc 32.8 g/dl (31.0-35.0); Mean Corpuscular Hemoglobin 31.5 pg (27.0-33.0); Mean Corpuscular Volume 96.1 fL (80-98); Monocytes Absolute Auto 0.6 X10*3/uL (0.1-1.2); Monocytes Percent Auto 14.7 % (2-11); Neutrophils Absolute Auto 1.8 X10*3/uL (2.0-8.3); Neutrophils Percent Auto 41.4 % (45-73); Platelet Count 183 X10*3/uL (160-400); Red Blood Count 3.11 X10*6/uL (4.20-5.50); Red Cell Distribution Width 12.5 % (11.0-16.0); White Blood Count 4.4 X10*3/uL (4.8-10.8)
[2020-08-25 07:43] VITALS: BP 127/49; PULSE 70; RESP 17; TEMP 36.2; O2SAT 99
[2020-08-25] MEDS: Lactated Ringers 1,000 ML 100 ML IVCONT (08:01)
--- NOTE | 2020-08-25 08:03 | MHC.CM.PN ---
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 patient s/p manas el was to be discharged last evening , but was still having pain and drowsy per surgeon he was kept over night and will be dischaegeed home this am
[2020-08-25] MEDS: Gabapentin 600 MG TABLET PO (08:45)
[2020-08-25] MEDS: clonazePAM 1 MG TABLET PO (08:45)
[2020-08-25] MEDS: Fluticasone/Vilanterol 200/25 BLST.W.DEV 1 PUFF INHALE (08:50)
[2020-08-25 08:51] VITALS: PULSE 77; O2SAT 98
--- NOTE | 2020-08-25 09:49 | MHC.CM.PN ---
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 PATIENT WILL BE DISCHARGED HOME TODAY WITH HER FAMILY NEW REFERRAL TO THE [facility] FOR NURSING TO START TOMORROW FOR DRESSING CHANGES PAIN MANAGEMENT ASSESSMENT AND WOUND ASSESSMENT TRANSPORTATION FAMILY PCP DR MARILYN COYLE BARIATRIC SURGEON FOLLOW UP PER DISCHARGE INSTRUCTIONS .
== END 2020-08-25 09:46 | disposition home health service (06) | DRG 580 ==
LOC: HO.SSSA 17:35 → HO.S3 17:40
PROVIDERS: Physician Assistant; Admitting Provider Surgery; PCP Internal Medicine; Visit Provider Surgery
PROC: [UNRECOGNIZED PROCEDURE] (CPT 15836; principal; 2020-08-22 12:40)
DX: L98.7 Excessive and redundant skin and subcutaneous tissue (principal); D62 Acute posthemorrhagic anemia; L03.116 Cellulitis of left lower limb; L03.114 Cellulitis of left upper limb; L03.113 Cellulitis of right upper limb; L03.115 Cellulitis of right lower limb; I95.81 Postprocedural hypotension; K21.9 Gastro-esophageal reflux disease without esophagitis; Z98.84 Bariatric surgery status; Z20.822 Contact with and (suspected) exposure to COVID-19; Z79.51 Long term (current) use of inhaled steroids; Z79.899 Other long term (current) drug therapy
CPT/HCPCS: 36415; 80048; 85025; 85027; 86850; 86900; 86901; 87635; 88304; 94640; 99024; J0131; J0690; J1100; J1170; J2250; J2405; J2550; J3010

== ENCOUNTER → 2020-08-28 07:59 | Outpatient (BNVA) | payer OTHER, SELFPAY | PROVIDERS: PCP Internal Medicine; Visit Provider Surgery ==

== ENCOUNTER 2020-08-28 14:51 | Outpatient (REF) | payer OTHER, SELFPAY ==
--- NOTE | ~2020-08-28 | US_ITS ---
EXAMINATION: US VENOUS ULTRASOUND WITH DOPPLER LOWER EXTREMITY, LEFT CLINICAL INFORMATION: Left leg pain COMPARISON: None TECHNIQUE: Ultrasound of the deep veins is performed from the hip to the calf with compression sonography and color and pulse Doppler assessment. Spectral analysis with color-flow imaging is performed. FINDINGS: There is normal venous compression and respiratory variation and augmented flow. The visualized common femoral vein, superficial femoral vein, profunda femoral vein, popliteal vein, and the trifurcation region shows no evidence of deep venous thrombosis. There is no significant popliteal fossa cyst. US/US venous duplex LE LT IMPRESSION: No DVT demonstrated in the left lower extremity.
== END 2020-08-28 14:52 | disposition home or self-care (01) ==
LOC: HO.US 14:51
PROVIDERS: PCP Internal Medicine; Visit Provider Surgery
DX: M79.662 Pain in left lower leg (principal); Z98.890 Other specified postprocedural states
CPT/HCPCS: 93971; 99212

== ENCOUNTER → 2020-09-04 08:09 | Outpatient (BNVA) | payer OTHER, SELFPAY | PROVIDERS: PCP Internal Medicine; Visit Provider Surgery | DX: Z98.890 Other specified postprocedural states (principal) | CPT/HCPCS: 99212 ==

== ENCOUNTER → 2020-09-07 08:26 | Outpatient (BNVA) | payer OTHER, SELFPAY | PROVIDERS: PCP Internal Medicine; Visit Provider Family Medicine Adult Medicine | DX: M96.1 Postlaminectomy syndrome, not elsewhere classified (principal); Z98.890 Other specified postprocedural states | CPT/HCPCS: 99212 ==

== ENCOUNTER 2020-09-08 11:40 | Outpatient (REF) | payer OTHER, SELFPAY ==
--- NOTE | ~2020-09-08 | US_ITS ---
EXAMINATION: US VENOUS ULTRASOUND WITH DOPPLER LOWER EXTREMITY, LEFT CLINICAL INFORMATION: Cellulitis. Assess for occult DVT. COMPARISON: Left lower extremity venous ultrasound with Doppler 08/28/2020. TECHNIQUE: Ultrasound of the deep veins is performed from the hip to the calf with compression sonography and color and pulse Doppler assessment. Spectral analysis with color-flow imaging is performed. FINDINGS: There is normal venous compression and respiratory variation and augmented flow. The visualized common femoral vein, superficial femoral vein, profunda femoral vein, popliteal vein, and the trifurcation region shows no evidence of deep venous thrombosis. There is no popliteal fossa cyst. No cystic soft tissue collection demonstrated. US/US venous duplex LE LT IMPRESSION: No DVT demonstrated in the left lower extremity.
[2020-09-08 12:21] LABS: MANUAL DIFF FLAG NO
[2020-09-08 12:30] LABS: Basophils Percent Auto 0.5 % (0-2); Eosinophils Absolute Auto 0.1 X10*3/uL (0.0-0.4); Eosinophils Percent Auto 1.6 % (0-4); Hematocrit 33.3 % (37-47); Hemoglobin 10.8 g/dl (12.0-16.0); Imm Gran Abs Auto 0.01 X10*3/uL (0.00-0.03); Imm Gran Pct Auto 0.2 % (0.0-0.4); Lymphocytes Absolute Auto 1.2 X10*3/uL (1.2-4.9); Lymphocytes Percent Auto 21.9 % (20-40); Mean Corpuscular HGB Conc 32.4 g/dl (31.0-35.0); Mean Corpuscular Hemoglobin 31.5 pg (27.0-33.0); Mean Corpuscular Volume 97.1 fL (80-98); Mean Platelet Volume 9.2 fL (9.4-12.3); Monocytes Absolute Auto 0.5 X10*3/uL (0.1-1.2); Monocytes Percent Auto 8.4 % (2-11); Neutrophils Absolute Auto 3.8 X10*3/uL (2.0-8.3); Neutrophils Percent Auto 67.4 % (45-73); Platelet Count 321 X10*3/uL (160-400); Red Blood Count 3.43 X10*6/uL (4.20-5.50); White Blood Count 5.6 X10*3/uL (4.8-10.8)
[2020-09-08 12:39] LABS: C Reactive Protein 0.61 mg/dL (< or = 0.50)
== END 2020-09-08 11:41 | disposition home or self-care (01) ==
LOC: HO.LAB 11:40
PROVIDERS: Internal Medicine; Visit Provider Surgery
DX: L76.32 Postprocedural hematoma of skin and subcutaneous tissue following other procedure (principal); K90.49 Malabsorption due to intolerance, not elsewhere classified; L03.90 Cellulitis, unspecified; D70.9 Neutropenia, unspecified; E78.5 Hyperlipidemia, unspecified
CPT/HCPCS: 36415; 85025; 86140; 93971; 99212

== ENCOUNTER → 2020-09-11 09:11 | Outpatient (BNVA) | payer OTHER, SELFPAY | PROVIDERS: PCP Internal Medicine; Referring Provider Internal Medicine; Visit Provider Surgery | DX: L76.32 Postprocedural hematoma of skin and subcutaneous tissue following other procedure (principal) | CPT/HCPCS: 99212 ==

== ENCOUNTER → 2020-09-13 07:34 | Outpatient (BNVA) | payer OTHER, SELFPAY | PROVIDERS: PCP Internal Medicine; Visit Provider Surgery | DX: L76.32 Postprocedural hematoma of skin and subcutaneous tissue following other procedure (principal) | CPT/HCPCS: 99212 ==

== ENCOUNTER → 2020-09-15 08:49 | Outpatient (BNVA) | payer OTHER, SELFPAY | PROVIDERS: PCP Internal Medicine; Visit Provider Surgery | DX: L76.32 Postprocedural hematoma of skin and subcutaneous tissue following other procedure (principal) | CPT/HCPCS: 99212 ==

== ENCOUNTER → 2020-09-18 10:13 | Outpatient (BNVA) | payer OTHER, SELFPAY | PROVIDERS: PCP Internal Medicine; Visit Provider Physician Assistant | DX: L76.32 Postprocedural hematoma of skin and subcutaneous tissue following other procedure (principal); Z88.8 Allergy status to other drugs, medicaments and biological substances; Z91.041 Radiographic dye allergy status | CPT/HCPCS: 99212 ==

== ENCOUNTER → 2020-09-19 08:54 | Outpatient (BNVA) | payer OTHER, SELFPAY | PROVIDERS: PCP Internal Medicine; Visit Provider Nurse Practitioner Family | DX: Z09 Encounter for follow-up examination after completed treatment for conditions other than malignant neoplasm (principal); M96.1 Postlaminectomy syndrome, not elsewhere classified | CPT/HCPCS: 99212 ==

== ENCOUNTER → 2020-09-20 09:25 | Outpatient (BNVA) | payer OTHER, SELFPAY | PROVIDERS: PCP Internal Medicine; Referring Provider Internal Medicine; Visit Provider Physician Assistant | DX: L76.32 Postprocedural hematoma of skin and subcutaneous tissue following other procedure (principal) | CPT/HCPCS: 99212 ==

== ENCOUNTER → 2020-09-22 09:19 | Outpatient (BNVA) | payer OTHER, SELFPAY | PROVIDERS: PCP Internal Medicine; Visit Provider Physician Assistant | DX: L76.32 Postprocedural hematoma of skin and subcutaneous tissue following other procedure (principal) | CPT/HCPCS: 99212 ==

== ENCOUNTER → 2020-10-09 06:50 | Outpatient (BNVA) | payer OTHER, SELFPAY | PROVIDERS: PCP Internal Medicine; Visit Provider Surgery | DX: L76.32 Postprocedural hematoma of skin and subcutaneous tissue following other procedure (principal) | CPT/HCPCS: 99212 ==

== ENCOUNTER → 2020-10-10 08:47 | Outpatient (BNVA) | payer OTHER, SELFPAY | PROVIDERS: PCP Internal Medicine; Visit Provider Family Medicine Adult Medicine | DX: M96.1 Postlaminectomy syndrome, not elsewhere classified (principal); Z79.891 Long term (current) use of opiate analgesic | CPT/HCPCS: 99212 ==

== ENCOUNTER → 2020-11-01 08:51 | Outpatient (BNVA) | payer OTHER, SELFPAY | PROVIDERS: PCP Internal Medicine; Visit Provider Surgery | DX: Z98.890 Other specified postprocedural states (principal) | CPT/HCPCS: 99212 ==

== ENCOUNTER → 2020-11-07 09:32 | Outpatient (BNVA) | payer OTHER, SELFPAY | PROVIDERS: PCP Internal Medicine; Visit Provider Family Medicine Adult Medicine | DX: Z51.81 Encounter for therapeutic drug level monitoring (principal); M96.1 Postlaminectomy syndrome, not elsewhere classified; Z98.890 Other specified postprocedural states | CPT/HCPCS: 99212 ==

== ENCOUNTER → 2020-12-04 08:58 | Outpatient (BNVA) | payer OTHER, SELFPAY | PROVIDERS: PCP Internal Medicine; Referring Provider Internal Medicine; Visit Provider Surgery | DX: T79.2XXA Traumatic secondary and recurrent hemorrhage and seroma, initial encounter (principal) | CPT/HCPCS: 99212 ==

== ENCOUNTER → 2020-12-05 08:49 | Outpatient (BNVA) | payer OTHER, SELFPAY | PROVIDERS: PCP Internal Medicine; Visit Provider Family Medicine Adult Medicine | DX: Z51.81 Encounter for therapeutic drug level monitoring (principal); M96.1 Postlaminectomy syndrome, not elsewhere classified; Z98.890 Other specified postprocedural states | CPT/HCPCS: Q3014 ==

== ENCOUNTER 2020-12-08 07:58 | Day surgery (SDC) | payer OTHER, SELFPAY ==
[2020-08-07 08:22] VITALS: BMI 20.2
[2020-12-04 12:10] VITALS: BMI 20.7
--- NOTE | 2020-12-07 14:05 | HO.ANESPROP2 ---
Documented by User: Enedelia Vieira NP 12/07/20 14:07 HPI - Anesthesia Eval Consult details Narrative: 60yo F for Right Sacroiliac Joint Steroid Injection s/p brachioplasty, thighplasty 08/2020 with GETA 7.0 Chronic opioids (currently following with Dr Morales for ? thigh seroma) PMFSH Active Problems Active Problems: All Active Problems (Updated 12/04/20 @ 11:53 by Dominique Ladd RN) S/P panniculectomy (Acute) S/P laparoscopic sleeve gastrectomy (Acute) Skin laxity (Acute) Abscess or cellulitis of knee (Acute) Cellulitis (Acute) Postoperative bleeding from incision (Acute) Incisional pain (Acute) Calf pain (Acute) S/P plastic surgery (Acute) Hematoma following procedure (Acute) Seroma due to trauma (Acute) Failed back syndrome, lumbar (Acute) Anxiety with depression (Acute) Asthma (Acute) Orthostatic hypotension (Acute) Past Medical History Medical History (Updated 12/04/20 @ 11:53 by Dominique Ladd RN) Allergic rhinitis Anemia Anxiety with depression Arthritis Asthma Back pain Bunion of left foot Chronic sinusitis Colon polyps COVID-19 vaccine administered Depression Failed back syndrome, lumbar Fatty liver GERD (gastroesophageal reflux disease) Herpes Hyperlipidemia Hypotension Labral tear of right hip joint Malabsorption due to intolerance, not elsewhere classified Migraines Neck pain Neutropenia Orthostatic hypotension Postconcussion syndrome Postlaminectomy syndrome Sacroiliitis Spinal stenosis Syncope and collapse Family History Family History Father No problems noted. Mother Cervical spine tumor Brother No problems noted. Brother No problems noted. Brother No problems noted. Brother No problems noted. Sister No problems noted. Son No problems noted. Daughter No problems noted. Family history of problems with anesthesia: No Surgical History Surgical History H/O colonoscopy H/O endoscopy H/O laminectomy History of appendectomy History of endometrial ablation History of hip surgery Hx of abdominal surgery S/P bilateral foot surgery S/P laparoscopic sleeve gastrectomy S/P panniculectomy S/P tonsillectomy Status post bariatric surgery History of Problems with Anesthesia: No Social History Social History (Reviewed 12/04/20 @ 09:06 by Ning Morales Household Members: Spouse Housing: House Are you a primary director medicare sales to a significant other at home: No Do you presently have visiting nurse or other home services: No Alcohol intake: never Patient Tobacco Use Status: Never used Tobacco Second Hand Smoke Exposure: No Use of substances other than those prescribed or required for medical reasons: Yes Substance Use Type: Marijuana Are you DNR?: No Advance Directives: No Advance Directives Information Provided: Yes Advance Directives on File: No service: No Current occupational status: disabled Meds Allergies Allergy/AdvReac Type Severity Reaction Status Date / Time Iodinated Contrast Media Allergy Intermediate HIVES Verified 12/05/20 09:11 [Iodinated Contrast Media - IV Dye] ketorolac [From Toradol] Allergy Intermediate localized Verified 12/05/20 09:11 redness/swelling Home Medications Medication Instructions Recorded Confirmed Last Taken Type calcium citrate 315 mg 1 tab PO BID 11/20/19 12/05/20 Unknown History calcium-vitamin D3 6.25 mcg (250 unit) tablet clonazepam 1 mg tablet 1 mg PO TID 11/20/19 12/05/20 08/22/20 History methylcellulose (with sugar) oral 1 tbsp PO DAILY 11/20/19 12/05/20 Unknown History powder (Citrucel (sucrose)) quetiapine 100 mg tablet 100 mg PO BEDTIME 03/14/20 12/05/20 Unknown History paroxetine HCl 10 mg tablet 10 mg PO BEDTIME 06/01/20 12/05/20 Unknown History Exam Exam Date and Time: December 07, 2020 1405 Height,Weight and Vital Signs: Height 5 ft 7 in Weight 59.874 kg Pertinent Lab Results Pertinent Lab Results: Laboratory Tests 08/23/20 09/08/20 05:48 11:50 WBC 5.6 Hgb 10.8 L Hct 33.3 L Plt Count 321 D Sodium 140 Potassium 4.4 Chloride 105 Carbon Dioxide 26 BUN 12 Creatinine 0.62 Assessment and Plan Assessment Anesthesia Assessment: Chart Reviewed Final Anesthetic Review Family History of Problems with Anesthesia: No History of Problems with Anesthesia: No Documented by User: Ryan Gomes MD 12/08/20 09:16 [facility] Past Medical History Medical History (Updated 12/04/20 @ 11:53 by Dominique Ladd, RN) Allergic rhinitis Anemia Anxiety with depression Arthritis Asthma Back pain Bunion of left foot Chronic sinusitis Colon polyps COVID-19 vaccine administered Depression Failed back syndrome, lumbar Fatty liver GERD (gastroesophageal reflux disease) Herpes Hyperlipidemia Hypotension Labral tear of right hip joint Malabsorption due to intolerance, not elsewhere classified Migraines Neck pain Neutropenia Orthostatic hypotension Postconcussion syndrome Postlaminectomy syndrome Sacroiliitis Spinal stenosis Syncope and collapse Family History Family History Father No problems noted. Mother Cervical spine tumor Brother No problems noted. Brother No problems noted. Brother No problems noted. Brother No problems noted. Sister No problems noted. Son No problems noted. Daughter No problems noted. Surgical History Surgical History H/O colonoscopy H/O endoscopy H/O laminectomy History of appendectomy History of endometrial ablation History of hip surgery Hx of abdominal surgery S/P bilateral foot surgery S/P laparoscopic sleeve gastrectomy S/P panniculectomy S/P tonsillectomy Status post bariatric surgery Social History Social History Household Members: Spouse Housing: House Are you a primary director medicare sales to a significant other at home: No Do you presently have visiting nurse or other home services: No Alcohol intake: never Patient Tobacco Use Status: Never used Tobacco Second Hand Smoke Exposure: No Use of substances other than those prescribed or required for medical reasons: Yes Substance Use Type: Marijuana Are you DNR?: No Advance Directives: No Advance Directives Information Provided: Yes Advance Directives on File: No service: No Current occupational status: disabled Meds Allergies Allergy/AdvReac Type Severity Reaction Status Date / Time Iodinated Contrast Media Allergy Intermediate HIVES Verified 12/05/20 09:11 [Iodinated Contrast Media - IV Dye] ketorolac [From Toradol] Allergy Intermediate localized Verified 12/05/20 09:11 redness/swelling Home Medications Medication Instructions Recorded Confirmed Last Taken Type calcium citrate 315 mg 1 tab PO BID 11/20/19 12/05/20 Unknown History calcium-vitamin D3 6.25 mcg (250 unit) tablet clonazepam 1 mg tablet 1 mg PO TID 11/20/19 12/05/20 08/22/20 History methylcellulose (with sugar) oral 1 tbsp PO DAILY 11/20/19 12/05/20 Unknown History powder (Citrucel (sucrose)) quetiapine 100 mg tablet 100 mg PO BEDTIME 03/14/20 12/05/20 Unknown History paroxetine HCl 10 mg tablet 10 mg PO BEDTIME 06/01/20 12/05/20 Unknown History Exam Airway Mallampati Class: II TM Dist: >3cm Neck ROM: Full
--- NOTE | ~2020-12-08 | FL_ITS ---
EXAMINATION: XR FLUOROSCOPY WITH IMAGES CLINICAL INFORMATION: SI joint injection-right. COMPARISON: None. TECHNIQUE: Fluoroscopy performed by Dr. Arie Patricia. Fluoroscopy time: 0.2 minutes DAP: 0.508 mGycm2 Images: 1 FINDINGS: Fluoroscopic assistance was provided at the time of the right SI joint injection. Single radiograph showing the tip of a radiopaque density projecting in the region of the inferior part of the right SI joint. FL/FL guidance in OR IMPRESSION: Fluoroscopic assistance at the time of the right SI joint injection. Please refer to the operative report for further full details.
[2020-12-08 08:12] VITALS: BP 123/62; PULSE 73; RESP 16; TEMP 36.1; O2SAT 97
[2020-12-08] MEDS: Lactated Ringers 1,000 ML 100 ML IVCONT (08:25)
--- NOTE | 2020-12-08 08:59 | MHC.SHP ---
Pre-Procedural Eval Section A Date of Service: 12/08/20 The patient is an INPATIENT: No Changes since office visit: Yes Patient answered all questions The History & Physical has been completed within 30 days and I have reviewed it.: No Section B Chief Complaint: Sacroiliitis Details of Present Illness: As above Relevant Social History: None Present Medications: None Medical History: No relevant PMH History of Previous Operations: No relevant previous surgery Allergies: Allergies Allergy/AdvReac Type Severity Reaction Status Date / Time Iodinated Contrast Media Allergy Intermediate HIVES Verified 12/05/20 09:11 [Iodinated Contrast Media - IV Dye] ketorolac [From Toradol] Allergy Intermediate localized Verified 12/05/20 09:11 redness/swelling Review of Systems Sugical H&P ROS: Negative: Constitution, Cardiovascular, Respiratory, Neurological, Psychiatric, Hem-Onc, Allergic/Immunologic, Gastrointestinal, Genitourinary, Musculoskeletal, Integumentary, Endocrine and Eyes/Ears/Nose/Throat Exam Surgical H&P Exam: Normal: HEENT, Normal: Heart, Normal: Lungs, Normal: Extremities, Normal: Abdomen, Normal: Skin and Normal: Neurological Plan Diagnosis/Plan: Unchanged I have reviewed the history and physical and performed a pertinent physical examination on my patient. No changes have occurred unless specified.
--- NOTE | 2020-12-08 10:22 | MHC.SHP ---
Pre-Procedural Eval Section A Date of Service: 12/08/20 The patient is an INPATIENT: No Changes since office visit: Yes Patient answered all questions Section B Chief Complaint: Sacroiliitis Details of Present Illness: Therese is very pleasant 60 years old female who is suffering from postlaminectomy syndrome. She is status post bariatric surgery and status post tight plasty. She is suffering from lower back pain with some symptoms pointing to sacroiliitis on the right. She came today to the operating room to receive sacroiliac joint steroid injection. Relevant Family History (Specify if Yes): No Relevant Social History: Other (specify) (History of bariatric surgery) Medical History: Significant History History of Previous Operations: Relevant previous surgery/procedure and date(s) Allergies: Allergies Allergy/AdvReac Type Severity Reaction Status Date / Time Iodinated Contrast Media Allergy Intermediate HIVES Verified 12/05/20 09:11 [Iodinated Contrast Media - IV Dye] ketorolac [From Toradol] Allergy Intermediate localized Verified 12/05/20 09:11 redness/swelling Review of Systems Sugical H&P ROS: Negative: Constitution, Cardiovascular, Respiratory, Neurological, Psychiatric, Hem-Onc, Allergic/Immunologic, Gastrointestinal, Genitourinary, Musculoskeletal, Integumentary, Endocrine and Eyes/Ears/Nose/Throat Exam Surgical H&P Exam: Normal: HEENT, Normal: Heart, Normal: Lungs, Normal: Extremities, Normal: Abdomen, Normal: Skin and Normal: Neurological Plan Diagnosis/Plan: Unchanged I have reviewed the history and physical and performed a pertinent physical examination on my patient. No changes have occurred unless specified.
--- NOTE | 2020-12-08 10:25 | PM.OP ---
Brief Operative Note Date of Service: 12/08/20 Pre-op diagnosis: Sacroiliitis Post-op diagnosis: same Procedure: Right sacroiliac joint injection with steroids Implants: None Surgeon: Arie Patricia MD Anesthesia: MAC Was an Alternative Financing Specialist used for this Procedure?: No Estimated blood loss (mL): 0 Condition: stable Disposition: PACU
--- NOTE | 2020-12-08 10:25 | W.PM.OPN ---
Operative Note Operative Note Date of Service: 12/08/20 Narrative: Informed consent was explained thoroughly to the patient.? All questions about benefits and risks for the procedure were answered. ? ?Patient came to the operating room she was positioned prone on the operating table with the pillow under her pelvis.? ? Time-out was performed delineating name and date of of the patient nature of the procedure and lateral T of the procedure. The patient participated in time-out. ? Her lower back and buttocks was prepped with ChloraPrep prepped and draped with sterile towels.? Sterilely draped C-arm was brought over the operating field and sq picture of patient's pelvis was demonstrated on the screen.? For right joint tilting C-arm contralateral to the site of the joint and 15? to the foot of the patient the most posterior portion of the joints were clearly delineated on the screen.? Skin was injected in the projection of the joint slightly medial to the location of the joint with 25 gauge 1/2 inch needle using local lidocaine 2% without epinephrine. ? ?After that 22 gauge 3 and 1/2 inch needle was driven to were each point of interest in tunnel vision fashion.? When needle entered the joint capsule injection of the contrast was not performed because patient is allergic to the contrast. Instead 4 cc. of bupivacaine 0.5% mixed with Kenalog 40 mg was injected into right joint.? Upon completion of the injections the needles were removed and pressure were applied.? Sterile dressing was applied.? Upon completion of the injection patient was awaken taken outside of the operating room to the recovery room where she recovered uneventfully.? She went home without immediate complications.
[2020-12-08 10:50] VITALS: BP 112/50; PULSE 75; RESP 14; TEMP 36.7; O2SAT 95
[2020-12-08 11:05] VITALS: BP 125/55; PULSE 68; RESP 16; O2SAT 99
[2020-12-08 11:16] VITALS: BP 117/57; PULSE 64; RESP 18; TEMP 37.1; O2SAT 96
== END 2020-12-08 11:55 | disposition home or self-care (01) ==
PROVIDERS: PCP Internal Medicine; Visit Provider Anesthesiology
PROC: 3E0U33Z Introduction of Anti-inflammatory into Joints, Percutaneous Approach (ICD-10-PCS; CPT 27096; principal; 2020-12-08 09:30)
DX: M46.1 Sacroiliitis, not elsewhere classified (principal); M54.41 Lumbago with sciatica, right side; M48.061 Spinal stenosis, lumbar region without neurogenic claudication; Z98.890 Other specified postprocedural states; Z79.51 Long term (current) use of inhaled steroids; J45.909 Unspecified asthma, uncomplicated; Z79.899 Other long term (current) drug therapy; Z88.8 Allergy status to other drugs, medicaments and biological substances; Z91.041 Radiographic dye allergy status; Z98.84 Bariatric surgery status; F12.90 Cannabis use, unspecified, uncomplicated
CPT/HCPCS: 27096; J2250; J3010; J3300; Q9967

== ENCOUNTER 2020-12-10 15:00 | Emergency (ER) | payer OTHER, SELFPAY ==
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
[2020-12-10 15:14] VITALS: BP 140/82; BP 163/76; PULSE 74; PULSE 76; RESP 14; O2SAT 98; BMI 24.1
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
[2020-12-10] MEDS: LORazepam 1 MG TABLET PO (15:47)
[2020-12-10 17:19] VITALS: BP 139/61; PULSE 64; RESP 18; O2SAT 100
[2020-12-10] MEDS: Butalb/Acetamin/Caff 50/325/40 TABLET 2 TAB PO (17:20)
== END 2020-12-10 17:57 | disposition home or self-care (01) ==
PROVIDERS: Emergency Provider Emergency Medicine Emergency Medical Services; PCP Internal Medicine
DX: S10.93XA Contusion of unspecified part of neck, initial encounter (principal); M54.2 Cervicalgia; R42 Dizziness and giddiness; R07.81 Pleurodynia; F12.90 Cannabis use, unspecified, uncomplicated; V43.52XA Car driver injured in collision with other type car in traffic accident, initial encounter; Y93.9 Activity, unspecified; Y92.410 Unspecified street and highway as the place of occurrence of the external cause; Y99.9 Unspecified external cause status; Z79.899 Other long term (current) drug therapy
CPT/HCPCS: 70450; 70486; 71046; 72125; 99284

== ENCOUNTER → 2020-12-12 08:32 | Outpatient (BNVA) | payer OTHER, SELFPAY | PROVIDERS: PCP Internal Medicine; Referring Provider Internal Medicine; Visit Provider Internal Medicine | DX: I95.1 Orthostatic hypotension (principal); E78.5 Hyperlipidemia, unspecified; K90.49 Malabsorption due to intolerance, not elsewhere classified; F41.8 Other specified anxiety disorders; Z98.84 Bariatric surgery status; Z88.8 Allergy status to other drugs, medicaments and biological substances; Z91.041 Radiographic dye allergy status; Z79.899 Other long term (current) drug therapy | CPT/HCPCS: Q3014 ==

== ENCOUNTER 2020-12-20 08:42 | Outpatient (REF) | payer OTHER, SELFPAY ==
--- NOTE | ~2020-12-20 | US_ITS ---
EXAMINATION: ULTRASOUND-GUIDED LEFT DISTAL THIGH ASPIRATION CLINICAL INFORMATION: Knee seroma. COMPARISON: None. TECHNIQUE: Ultrasound-guided aspiration left distal medial thigh fluid collection. FINDINGS: Informed consent was obtained from the patient prior to the procedure. During this process, the procedure and potential alternatives were explained, along with the intended outcome and benefits. The risks of the procedure, as well as the risk of not doing the procedure, were discussed. The patient was given the opportunity to ask questions regarding the procedure and appeared competent to make medical decisions. A signed consent form which documents this discussion was placed in the medical record. The palpable abnormality lies adjacent to previous surgical site about the distal medial left thigh. Using sterile technique and ultrasound guidance, a 5 [place] Yueh needle was directed into the fluid collection and approximately 2 mL of clear yellow fluid removed. Patient tolerated procedure without difficulty. US/US guided fine needle asp IMPRESSION: Successful aspiration of distal left thigh fluid collection.
[2020-12-20] MEDS: Lidocaine HCl 1 % MPF 5 ML VIAL SUBCUT (10:20)
== END 2020-12-20 08:43 | disposition home or self-care (01) ==
LOC: HO.US 08:42
PROVIDERS: PCP Internal Medicine; Visit Provider Surgery
DX: T79.2XXA Traumatic secondary and recurrent hemorrhage and seroma, initial encounter (principal)
CPT/HCPCS: 10005

== ENCOUNTER → 2021-01-02 | Outpatient (BNVA) | payer OTHER, SELFPAY | PROVIDERS: Visit Provider Family Medicine Adult Medicine | DX: M96.1 Postlaminectomy syndrome, not elsewhere classified (principal); Z98.890 Other specified postprocedural states; Z98.84 Bariatric surgery status | CPT/HCPCS: Q3014 ==

== ENCOUNTER → 2021-01-16 11:16 | Outpatient (BNVA) | payer OTHER, SELFPAY | PROVIDERS: PCP Internal Medicine; Visit Provider Nurse Practitioner Family | DX: M46.1 Sacroiliitis, not elsewhere classified (principal); M96.1 Postlaminectomy syndrome, not elsewhere classified; Z98.84 Bariatric surgery status; Z90.3 Acquired absence of stomach [part of]; Z88.8 Allergy status to other drugs, medicaments and biological substances; Z91.041 Radiographic dye allergy status; Z79.899 Other long term (current) drug therapy | CPT/HCPCS: 99212 ==

== ENCOUNTER → 2021-01-17 07:56 | Outpatient (BNVA) | payer OTHER, SELFPAY | PROVIDERS: Referring Provider Internal Medicine; Visit Provider Physician Assistant | DX: T79.2XXA Traumatic secondary and recurrent hemorrhage and seroma, initial encounter (principal); Z98.84 Bariatric surgery status; Z90.3 Acquired absence of stomach [part of] | CPT/HCPCS: 99212 ==

== ENCOUNTER → 2021-01-18 13:52 | Outpatient (BNVA) | payer OTHER, SELFPAY | PROVIDERS: Visit Provider Nurse Practitioner Family | DX: Z51.81 Encounter for therapeutic drug level monitoring (principal); F11.20 Opioid dependence, uncomplicated; S16.1XXA Strain of muscle, fascia and tendon at neck level, initial encounter | CPT/HCPCS: 99212 ==

== ENCOUNTER 2021-01-22 08:33 | Outpatient (REF) | payer OTHER, SELFPAY ==
--- NOTE | ~2021-01-22 | US_ITS ---
EXAMINATION: ULTRASOUND-GUIDED FINE-NEEDLE ASPIRATION CLINICAL INFORMATION: Recurrent seroma left medial lower thigh COMPARISON: Previous exam 12/20/2020 TECHNIQUE: Procedure and risks and benefits including bleeding and infection were discussed with the patient and informed consent was obtained. The left lower medial thigh was prepped and draped in the usual sterile fashion. The skin and soft tissues were anesthetized with 1% lidocaine plain. Using ultrasound guidance and an 18-gauge needle, access to the fluid collection in the thigh was obtained. 2 mL of clear yellow fluid was removed. Diagnostic specimen was sent as requested by the ordering physician for culture. FINDINGS: There is a 1.6 x 3 x 1 cm simple appearing cyst or fluid collection just deep to the skin in the left medial lower thigh that was targeted for fine-needle aspiration. Postprocedure images demonstrate no residual fluid. US/US guided fine needle asp IMPRESSION: Ultrasound-guided aspiration of a small fluid collection in the thigh.
[2021-01-22] MEDS: Lidocaine HCl 1 % MPF 5 ML VIAL 4 ML SUBCUT (11:04)
== END 2021-01-22 08:34 | disposition home or self-care (01) ==
LOC: HO.US 08:33
PROVIDERS: PCP Internal Medicine; Visit Provider Physician Assistant
DX: T79.2XXA Traumatic secondary and recurrent hemorrhage and seroma, initial encounter (principal)
CPT/HCPCS: 10005; 87071; 87073; 87205

== ENCOUNTER 2021-01-30 08:32 | Outpatient (REF) | payer OTHER, SELFPAY ==
[2021-01-30 08:53] LABS: MANUAL DIFF FLAG NO
[2021-01-30 09:30] LABS: Basophils Percent Auto 0.7 % (0-2); Eosinophils Absolute Auto 0.1 X10*3/uL (0.0-0.4); Eosinophils Percent Auto 2.2 % (0-4); Hematocrit 35.5 % (37.0-47.0); Imm Gran Abs Auto 0.01 X10*3/uL (0.00-0.03); Imm Gran Pct Auto 0.2 % (0.0-0.4); Lymphocytes Absolute Auto 1.6 X10*3/uL (1.2-4.9); Lymphocytes Percent Auto 37.8 % (20-40); Mean Corpuscular HGB Conc 33.8 g/dl (31.0-35.0); Mean Corpuscular Hemoglobin 31.9 pg (27.0-33.0); Mean Corpuscular Volume 94.4 fL (80.0-98.0); Mean Platelet Volume 9.9 fL (9.4-12.3); Monocytes Absolute Auto 0.5 X10*3/uL (0.1-1.2); Monocytes Percent Auto 11.3 % (2-11); Neutrophils Percent Auto 47.8 % (45-73); Platelet Count 208 X10*3/uL (160-400); Red Blood Count 3.76 X10*6/uL (4.20-5.50); Red Cell Distribution Width 13.1 % (11.0-16.0); White Blood Count 4.2 X10*3/uL (4.8-10.8)
[2021-01-30 09:56] LABS: Ethanol < 10 mg/dL
[2021-01-30 10:22] LABS: Alanine Aminotransferase 17 U/L (0-31); Albumin Level 4.4 g/dL (3.5-5.0); Alkaline Phosphatase 87 U/L (39-117); Anion Gap 12 (12-20); Aspartate Amino Transferase 21 U/L (5-31); Bilirubin Total 0.4 mg/dL (0.0-1.0); Blood Urea Nitrogen 23 mg/dL (9-16); Calcium 10.1 mg/dL (8.4-10.2); Carbon Dioxide 28 mmol/L (22-29); Chloride 103 mmol/L (96-108); Cholesterol 272 mg/dL; Estimated Glomerular Filt Rate > 60; Glucose Fasting 94 mg/dL (60-99); HDL Cholesterol 91 mg/dL; LDL Cholesterol Calculated 164 mg/dl; Potassium 4.9 mmol/L (3.3-5.1); Sodium 138 mmol/L (135-145); Total Protein 6.8 g/dL (6.5-8.0); Triglycerides 88 mg/dL
[2021-01-30 11:15] LABS: Amphetamine Screen Urine Not Detected (Not Detect); Barbiturates, Urine POSITIVE (Not Detect); Benzodiazepines Screen Urine Not Detected (Not Detect); Cannabinoid Screen Urine POSITIVE (Not Detect); Cocaine Screen Urine Not Detected (Not Detect); Fentanyl, urine Not Detected (Not Detect); Opiate Screen Urine Not Detected (Not Detect); Phencyclidine Screen Urine Not Detected (Not Detect)
== END 2021-01-30 08:33 | disposition home or self-care (01) ==
LOC: HO.LAB 08:32
PROVIDERS: Absent Provider Nurse Practitioner Psychiatric/Mental Health; PCP Internal Medicine; Visit Provider Physician Assistant
DX: F33.1 Major depressive disorder, recurrent, moderate (principal)
CPT/HCPCS: 80053; 80061; 80307; 82077; 85025

== ENCOUNTER 2021-01-31 08:41 | Outpatient (REF) | payer OTHER, SELFPAY ==
--- NOTE | ~2021-01-31 | XR_ITS ---
EXAMINATION: XR CERVICAL SPINE CLINICAL INFORMATION: Radiculopathy cervical region. COMPARISON: None TECHNIQUE: 5 views, 7 images of the cervical spine were obtained. FINDINGS: Grade 1 retrolisthesis of C4 over C5 vertebral body. [id number] degenerative spondylosis at C4-C5 and C5-C6. The heights of the cervical vertebrae are well-maintained. The posterior appendages are intact. Bilateral mild to moderate neural foraminal narrowings are noted at C4-C5 and C5-C6. The facet joint alignments are intact. The C1-C2 alignment is intact. Prespinal soft tissues are unremarkable. Elongated transverse process of C7 is noted bilaterally. Both lung apices are clear. XR/XR cervical spine min 6V IMPRESSION: Grade 1 retrolisthesis of C4 over C5 vertebral body and mild to moderate degenerative spondylosis at C4-C5 and C5-C6. Bilateral ogio-[id number]-kkmfayjo foraminal narrowing at C4-C5 and C5-C6.
== END 2021-01-31 08:42 | disposition home or self-care (01) ==
LOC: HO.HMGCX 08:41
PROVIDERS: PCP Internal Medicine; Visit Provider Nurse Practitioner Family
DX: M54.12 Radiculopathy, cervical region (principal); S16.1XXA Strain of muscle, fascia and tendon at neck level, initial encounter; X58.XXXA Exposure to other specified factors, initial encounter; Y93.9 Activity, unspecified; Y92.9 Unspecified place or not applicable; Y99.8 Other external cause status
CPT/HCPCS: 72052

== ENCOUNTER → 2021-02-15 13:42 | Outpatient (BNVA) | payer OTHER, SELFPAY | PROVIDERS: PCP Internal Medicine; Visit Provider Nurse Practitioner Family | DX: Z51.81 Encounter for therapeutic drug level monitoring (principal); F11.20 Opioid dependence, uncomplicated; M54.12 Radiculopathy, cervical region; M46.1 Sacroiliitis, not elsewhere classified; G89.4 Chronic pain syndrome | CPT/HCPCS: 99212 ==

== ENCOUNTER 2021-02-26 08:52 | Outpatient (REF) | payer OTHER, SELFPAY ==
--- NOTE | ~2021-02-26 | US_ITS ---
EXAMINATION: ULTRASOUND-GUIDED FINE-NEEDLE ASPIRATION CLINICAL INFORMATION: Recurrent left thigh seroma for drainage. COMPARISON: Ultrasound guided fine needle aspiration 01/22/2021. TECHNIQUE: Following explaining the procedure, benefits and risks of ultrasound-guided seroma drainage, a written consent was obtained. Patient was placed supine on ultrasound stretcher and preliminary ultrasound imaging was obtained through the left medial thigh. Images were obtained for documentation. An optimal site was selected along the left medial thigh where a long suture line is visualized. An optimal site was selected and marked on the skin. 1% lidocaine was injected at the puncture site. A 18-gauge needle was then advanced through the skin into the fluid collection under sterile ultrasound guidance and approximately 2.5 mL of clear fluid was collected. On further aggressive intervention, there is a small reddish fluid-like minimal hemorrhage seen on the last aspiration. Postprocedure, complete hemostasis was achieved at the puncture site. A simple Band-Aid was applied postprocedure. Patient tolerated procedure extremely well. FINDINGS: There is a well-defined seroma in the left medial thigh measuring 2.3 x 1.0 x 1.5 cm. Approximately 2.5 mL of clear non-gelatinous fluid was aspirated. Interventional images reveal significant reduction in the size of this collection. None of this fluid was sent to lab. US/US guided fine needle asp IMPRESSION: Successful ultrasound-guided left thigh seroma drainage without immediate complications.
[2021-02-26] MEDS: Lidocaine HCl 1 % MPF 5 ML VIAL 2 ML SUBCUT (09:51)
== END 2021-02-26 08:53 | disposition home or self-care (01) ==
LOC: HO.US 08:52
PROVIDERS: PCP Internal Medicine; Visit Provider Physician Assistant
DX: T79.2XXA Traumatic secondary and recurrent hemorrhage and seroma, initial encounter (principal)
CPT/HCPCS: 10005

== ENCOUNTER 2021-03-01 13:09 | Outpatient (REF) | payer OTHER, SELFPAY ==
--- NOTE | ~2021-03-01 | MR_ITS ---
MR CERVICAL SPINE WITHOUT IV CONTRAST CLINICAL INFORMATION: Cervical region radiculopathy. COMPARISON: None available. TECHNIQUE: MRI of the cervical spine was obtained using routine sequences without contrast. FINDINGS: Straightening of the cervical lordosis. Mild retrosubluxation of C4 on C5 and C5 on C6. Partially imaged rightward convex scoliotic curvature of the thoracic spine. There is no bone marrow edema. There are no acute fractures. Craniocervical junction is unremarkable. Vertebral body heights are maintained. Moderate disc volume loss at C4-C5 and C5-C6. Partially imaged intracranial compartment is unremarkable. Cervical arterial flow voids are maintained. No significant extraspinal soft tissue findings. C2-C3: Shallow central disc protrusion without central canal stenosis. Bilateral facet arthropathy. No foraminal stenosis. C3-C4: Slight annular disc bulge. Bilateral facet arthropathy. No central canal stenosis and no foraminal stenosis. C4-C5: Disc osteophyte mildly narrows the central canal. Uncovertebral joint hypertrophy and hypertrophic facet arthropathy result in moderate bilateral foraminal stenosis. C5-C6: Disc osteophyte mildly narrows the central canal. Advanced uncovertebral joint hypertrophy and hypertrophic facet arthropathy result in severe bilateral foraminal stenosis. C6-C7: There is a central disc protrusion that flattens the ventral cord and along with ligamentum flavum thickening results in mild central canal stenosis. C7-T1: Slight annular disc bulge. No central canal stenosis and no foraminal stenosis. MR/MR cervical spine wo con IMPRESSION: Multiple level cervical spondylosis. At C6-C7, a central disc protrusion flattens the ventral cord resulting in mild central canal stenosis. Spondylitic changes result in moderate bilateral C4-C5 and severe bilateral C5-C6 foraminal stenosis.
== END 2021-03-01 13:10 | disposition home or self-care (01) ==
LOC: HO.MRI 13:09
PROVIDERS: PCP Internal Medicine; Visit Provider Nurse Practitioner Family
DX: M54.12 Radiculopathy, cervical region (principal)
CPT/HCPCS: 72141

== ENCOUNTER → 2021-03-15 08:22 | Outpatient (BNVA) | payer OTHER, SELFPAY | PROVIDERS: PCP Internal Medicine; Visit Provider Anesthesiology ==

== ENCOUNTER 2021-03-15 10:04 | Outpatient (REF) | payer OTHER, SELFPAY ==
--- NOTE | ~2021-03-15 | XR_ITS ---
EXAMINATION: XR HAND, LEFT CLINICAL INFORMATION: Pain COMPARISON: Previous x-ray June 2017 TECHNIQUE: PA, lateral, and oblique views of the left hand. FINDINGS: The bones and soft tissues are normal. No fracture. Alignment is anatomic. Joint spaces are maintained. No erosions or soft tissue calcifications. XR/XR hand LT min 3V IMPRESSION: Normal left hand.
== END 2021-03-15 10:05 | disposition home or self-care (01) ==
LOC: HO.HMGCX 10:04
PROVIDERS: Visit Provider Internal Medicine
DX: M79.642 Pain in left hand (principal)
CPT/HCPCS: 73130

== ENCOUNTER → 2021-03-20 09:59 | Outpatient (BNVA) | payer OTHER, SELFPAY | PROVIDERS: Visit Provider Nurse Practitioner Family | DX: Z51.81 Encounter for therapeutic drug level monitoring (principal); F11.20 Opioid dependence, uncomplicated | CPT/HCPCS: 99211 ==

== ENCOUNTER 2021-03-27 09:00 | Outpatient (RCR) | payer OTHER, SELFPAY ==
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
--- NOTE | 2021-03-27 09:51 | MHC.PT.DC ---
[facility] [place] Office [place] Office [place] Office [address] June Barnes [address] [phone] F: [phone] F: [phone] F: [phone] F: [phone] Physical Therapy Discharge Report Diagnosis: cervical radiculopathy, strain of neck Date of Surgery: n/a Date of Evaluation: 03/01/21 Date of Discharge: 03/27/21 Treatments to Date: 7 Cancellations to Date: 1 No Shows to Date: 0 Discharge Status: Independent with HEP Patient Elected to Stop Recommend MD Follow-up Discharge Summary: Pt has unfortunately made little to no progress since beginning skilled PT despite various treatment interventions trialed. 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 She reports compliance with HEP. At this time based on lack of progress, skilled PT is no longer indicated. Discussed with pt my recommendation to follow up with MD and pt with good verbal understanding and agreement. Pt in agreement with d/c today as well. Electronically signed by: Karishma Adams, PT, DPT, ATC Please sign and return to therapist. Thank you for your referral.
== END 2021-03-27 09:52 | disposition home or self-care (01) ==
LOC: HO.PTCHIC 09:00
PROVIDERS: PCP Internal Medicine; Visit Provider Nurse Practitioner Family
DX: S16.1XXD Strain of muscle, fascia and tendon at neck level, subsequent encounter (principal); M54.12 Radiculopathy, cervical region
CPT/HCPCS: 97110; 97140; 97162

== ENCOUNTER → 2021-04-12 08:24 | Outpatient (BNVA) | payer OTHER, SELFPAY | PROVIDERS: Visit Provider Nurse Practitioner Family | DX: G89.4 Chronic pain syndrome (principal); M47.22 Other spondylosis with radiculopathy, cervical region; M54.2 Cervicalgia; Z79.891 Long term (current) use of opiate analgesic | CPT/HCPCS: 99212 ==

== ENCOUNTER 2021-04-30 14:17 | Outpatient (REF) | payer OTHER, SELFPAY ==
--- NOTE | ~2021-04-30 | MM_ITS ---
EXAMINATION: MM SCREENING DIGITAL BREAST TOMOSYNTHESIS, BILATERAL CLINICAL INFORMATION: Screening. Asymptomatic. The lifetime risk of breast cancer based on the Tyrer-Cuzick Model is 10%. COMPARISON: Mammography: 12/13/2020, 05/20/2018; outside mammography 09/20/2016, 09/19/2015 ([place]), and 12/17/2013. TECHNIQUE: Digital breast tomosynthesis is performed in both the craniocaudal and mediolateral oblique views along with computer-aided detection (CAD). Synthesized 2D images are generated from the tomosynthesis. Additional left MLO view is provided. FINDINGS: There are scattered areas of fibroglandular density (ACR BI-RADS breast composition Category b). There are no significant masses, abnormal calcifications, or other abnormalities. Parenchymal pattern is similar to prior studies. Minor asymmetries are stable. No developing density or architectural quality. The skin contours are smooth. MM/MM tomosynthesis screening BI IMPRESSION: No mammographic evidence of malignancy. ASSESSMENT: BI-RADS 1: Negative RECOMMENDATION: Routine annual mammography screening. This patient's information was entered into a reminder system with a target due date for their next mammogram.
== END 2021-04-30 14:18 | disposition home or self-care (01) ==
LOC: HO.MAMMO 14:17
PROVIDERS: PCP Internal Medicine; Visit Provider Advanced Practice Midwife
DX: Z12.31 Encounter for screening mammogram for malignant neoplasm of breast (principal)
CPT/HCPCS: 77063; 77067

== ENCOUNTER → 2021-05-01 10:15 | Outpatient (BNVA) | payer OTHER, SELFPAY | PROVIDERS: PCP Internal Medicine; Visit Provider Nurse Practitioner Family | DX: Z51.81 Encounter for therapeutic drug level monitoring (principal); F11.20 Opioid dependence, uncomplicated; M47.22 Other spondylosis with radiculopathy, cervical region; M54.2 Cervicalgia; G89.4 Chronic pain syndrome | CPT/HCPCS: 99212 ==

== ENCOUNTER 2021-05-28 08:02 | Emergency (ER) | payer OTHER, SELFPAY ==
[2021-05-28 08:18] VITALS: BP 96/31; PULSE 83; RESP 19; TEMP 35.8; O2SAT 98
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
[2021-05-28] MEDS: Rabies Vaccine (PCEC)/PF 1 ML VIAL IM (09:39)
[2021-05-28] MEDS: Rabies Immune Globulin/PF 300 UNIT/ML VIAL 1161.2 UNIT IM (09:44)
== END 2021-05-28 09:58 | disposition home or self-care (01) ==
PROVIDERS: Emergency Provider Emergency Medicine; PCP Internal Medicine
DX: S61.051A Open bite of right thumb without damage to nail, initial encounter (principal); S61.551A Open bite of right wrist, initial encounter; W55.01XA Bitten by cat, initial encounter; Z20.3 Contact with and (suspected) exposure to rabies; Y93.89 Activity, other specified; Y92.410 Unspecified street and highway as the place of occurrence of the external cause; Y99.9 Unspecified external cause status
CPT/HCPCS: 90375; 90471; 90675; 96372; 99283; 99284

== ENCOUNTER → 2021-05-29 08:11 | Outpatient (BNVA) | payer OTHER, SELFPAY | PROVIDERS: PCP Internal Medicine; Visit Provider Nurse Practitioner Family | DX: Z51.81 Encounter for therapeutic drug level monitoring (principal); F11.20 Opioid dependence, uncomplicated; M47.22 Other spondylosis with radiculopathy, cervical region; M54.2 Cervicalgia; G89.4 Chronic pain syndrome; Z98.1 Arthrodesis status | CPT/HCPCS: 99212 ==

== ENCOUNTER 2021-05-31 07:18 | Outpatient (REF) | payer OTHER, SELFPAY | END 2021-05-31 07:19 | disposition home or self-care (01) | LOC: HO.MDS 07:18 | DX: Z29.14 Encounter for prophylactic rabies immune globulin (principal); S61.051D Open bite of right thumb without damage to nail, subsequent encounter; S61.551D Open bite of right wrist, subsequent encounter; W55.01XD Bitten by cat, subsequent encounter; M79.89 Other specified soft tissue disorders; Z20.3 Contact with and (suspected) exposure to rabies | CPT/HCPCS: 90471; 90675 ==

== ENCOUNTER 2021-06-04 09:31 | Outpatient (REF) | payer OTHER, SELFPAY | END 2021-06-04 09:32 | disposition home or self-care (01) | LOC: HO.MDS 09:31 | DX: Z29.14 Encounter for prophylactic rabies immune globulin (principal); S61.051D Open bite of right thumb without damage to nail, subsequent encounter; S61.551D Open bite of right wrist, subsequent encounter; W55.01XD Bitten by cat, subsequent encounter; M79.89 Other specified soft tissue disorders; Z20.3 Contact with and (suspected) exposure to rabies | CPT/HCPCS: 90471; 90675 ==

== ENCOUNTER 2021-06-11 07:19 | Outpatient (REF) | payer OTHER, SELFPAY | END 2021-06-11 07:20 | disposition home or self-care (01) | LOC: HO.MDS 07:19 | DX: Z29.14 Encounter for prophylactic rabies immune globulin (principal); S61.051D Open bite of right thumb without damage to nail, subsequent encounter; S61.551D Open bite of right wrist, subsequent encounter; W55.01XD Bitten by cat, subsequent encounter; Z20.3 Contact with and (suspected) exposure to rabies | CPT/HCPCS: 90471; 90675 ==

== ENCOUNTER → 2021-06-26 08:07 | Outpatient (BNVA) | payer OTHER, SELFPAY | PROVIDERS: PCP Internal Medicine; Visit Provider Nurse Practitioner Family | DX: Z51.81 Encounter for therapeutic drug level monitoring (principal); F11.20 Opioid dependence, uncomplicated | CPT/HCPCS: 99211 ==

== ENCOUNTER → 2021-07-26 08:07 | Outpatient (BNVA) | payer OTHER, SELFPAY | PROVIDERS: PCP Internal Medicine; Visit Provider Nurse Practitioner Family | DX: G89.4 Chronic pain syndrome (principal); M47.22 Other spondylosis with radiculopathy, cervical region; M46.1 Sacroiliitis, not elsewhere classified; M53.3 Sacrococcygeal disorders, not elsewhere classified; Z79.891 Long term (current) use of opiate analgesic; Z98.1 Arthrodesis status | CPT/HCPCS: 99212 ==

== ENCOUNTER → 2021-07-30 08:05 | Outpatient (BNVA) | payer OTHER, SELFPAY | PROVIDERS: PCP Internal Medicine; Visit Provider Internal Medicine | DX: M70.61 Trochanteric bursitis, right hip (principal) | CPT/HCPCS: 20553; 20610; 99212; J2795; J3300 ==

== ENCOUNTER → 2021-08-23 09:09 | Outpatient (BNVA) | payer OTHER, SELFPAY | PROVIDERS: PCP Internal Medicine; Visit Provider Nurse Practitioner Family | DX: G89.4 Chronic pain syndrome (principal); G89.29 Other chronic pain; M25.512 Pain in left shoulder; M46.1 Sacroiliitis, not elsewhere classified; M53.3 Sacrococcygeal disorders, not elsewhere classified; M54.12 Radiculopathy, cervical region; Z79.891 Long term (current) use of opiate analgesic; Z98.1 Arthrodesis status | CPT/HCPCS: 99212 ==

== ENCOUNTER 2021-08-27 08:17 | Outpatient (REF) | payer OTHER, SELFPAY ==
--- NOTE | ~2021-08-27 | XR_ITS ---
EXAMINATION: XR SHOULDER, LEFT CLINICAL INFORMATION: Pain COMPARISON: Previous x-ray July 2019 TECHNIQUE: AP external rotation, Grashey, scapular Y, and axillary views of the left shoulder. FINDINGS: Bone alignment is normal. No fracture or dislocation is seen. The glenohumeral joint is normal. There is arthritis at the acromioclavicular joint. Soft tissues are unremarkable. There are postsurgical changes to the cervical spine. XR/XR shoulder LT min 2V IMPRESSION: Arthritis at the acromioclavicular joint.
== END 2021-08-27 08:18 | disposition home or self-care (01) ==
LOC: HO.XRAY 08:17
PROVIDERS: PCP Internal Medicine; Visit Provider Nurse Practitioner Family
DX: M25.512 Pain in left shoulder (principal); G89.29 Other chronic pain
CPT/HCPCS: 73030

== ENCOUNTER 2021-08-27 08:55 | Observation (INO) | payer OTHER, SELFPAY ==
--- NOTE | ~2021-08-27 | MR_ITS ---
EXAMINATION: MR BRAIN WITHOUT CONTRAST CLINICAL INFORMATION: Rule out stroke. COMPARISON: Head CT 08/27/2021. TECHNIQUE: Multiplanar, multisequence imaging of the brain was performed without intravenous contrast. FINDINGS: There is no acute infarction, mass, hemorrhage, or extra-axial collection. The ventricles, sulci, and basilar cisterns are normal in size and configuration. Mild to moderate patchy foci of T2/FLAIR hyperintensity are seen within the cerebral white matter, a nonspecific finding which appears similar compared with prior. Arachnoid cyst is seen within the right cerebellopontine angle cistern, stable from prior. The flow voids of the major intracranial arteries appear intact. The bones and extracranial soft tissues are unremarkable. MR/MR head/brain wo con IMPRESSION: No acute infarct, mass lesion, intracranial hemorrhage, or evidence of hydrocephalus. Nonspecific T2/FLAIR hyperintensity seen in the bilateral cerebral white matter.
--- NOTE | ~2021-08-27 | CT_ITS ---
EXAMINATION: CT CERVICAL SPINE WITHOUT CONTRAST CLINICAL INFORMATION: Syncopal episodes with fall COMPARISON: None TECHNIQUE: 3 mm thin axial and reformatted 2 mm thin sagittal and coronal images of cervical spine were obtained. This CT examination was performed using dose optimization techniques as appropriate, variously including the following: *Automated exposure control *Adjustment of mA and/or kV according to patient size (this includes techniques or standardized protocols for targeted exams where dose is matched to indication/reason for exam; i.e. extremities or head) *Use of iterative reconstruction technique DLP: 366 mGy-cm FINDINGS: On sagittal reconstructed images there is maintained cervical lordosis. There are 0 profile prosthesis at C5-C6 and C6-C7 disc levels. Mild loss of C4-C5 disc level is noted. Rest the disc heights and vertebral heights are normal. The craniovertebral junction and the C1-C2 alignment is normal. No visible acute fracture, dislocation or subluxation seen. The prevertebral and paravertebral soft tissues are normal. CT/CT cervical spine wo con IMPRESSION: C5-C6 and C6-C7 disc prosthesis for fusion. No visible acute fracture, dislocation or subluxation seen. Fleischner guidelines were followed.
--- NOTE | ~2021-08-27 | CT_ITS ---
EXAMINATION: CT HEAD WITHOUT CONTRAST (STROKE PROTOCOL) CLINICAL INFORMATION: Stroke protocol. Left lower extremity weakness and ataxia. COMPARISON: CT had noncontrast 12/10/2020, 03/11/2020 TECHNIQUE: Contiguous axial imaging was performed from the skull base to vertex without intravenous administration of contrast. This CT examination was performed using dose optimization techniques as appropriate, variously including the following: *Automated exposure control *Adjustment of mA and/or kV according to patient size (this includes techniques or standardized protocols for targeted exams where dose is matched to indication/reason for exam; i.e. extremities or head) *Use of iterative reconstruction technique DLP: 654 mGy-cm FINDINGS: There is no intracranial hemorrhage, hematoma, or extra-axial fluid collection. The ventricles are normal in size. There is no hydrocephalus, edema, or mass effect. The zarate-white matter differentiation is similar to prior studies. Again, there is some accentuated cortical sulci and fissures. There is no visible acute territorial infarct or mass lesion. The calvarium appears intact. There is no pneumocephalus or orbital emphysema. The visualized sinuses and middle ears and mastoid air cells show no significant mucosal thickening. There are no air-fluid levels. Results called to Dr. Queen in the emergency department at [address]/CT head for stroke IMPRESSION: No acute intracranial abnormality.
[2021-08-27 09:19] VITALS: BP 139/71; PULSE 74; RESP 18; TEMP 36.8; O2SAT 95; BMI 20.4
--- NOTE | 2021-08-27 09:33 | ECG_ITS ---
Test Reason : SYNCOPE Blood Pressure : / mmHG Vent. Rate : 065 BPM Atrial Rate : 065 BPM P-R Int : 164 ms QRS Dur : 080 ms QT Int : 394 ms P-R-T Axes : -07 -08 016 degrees QTc Int : 409 ms Normal sinus rhythm Normal ECG When compared with ECG of 11-MAR-2020 13:07, No significant change was found Referred By: Olga Lidia Eisenberg Electronically Signed By:MELODY HERNANDEZ MD
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
[2021-08-27 09:58] LABS: MANUAL DIFF FLAG NO
[2021-08-27 10:00] LABS: Basophils Percent Auto 0.5 % (0-2); Eosinophils Absolute Auto 0.1 X10*3/uL (0.0-0.4); Eosinophils Percent Auto 1.9 % (0-4); Hematocrit 37.4 % (37.0-47.0); Hemoglobin 12.5 g/dl (12.0-16.0); Imm Gran Abs Auto 0.01 X10*3/uL (0.00-0.03); Imm Gran Pct Auto 0.2 % (0.0-0.4); Lymphocytes Absolute Auto 1.2 X10*3/uL (1.2-4.9); Lymphocytes Percent Auto 30.1 % (20-40); Mean Corpuscular HGB Conc 33.4 g/dl (31.0-35.0); Mean Corpuscular Hemoglobin 31.4 pg (27.0-33.0); Mean Platelet Volume 9.4 fL (9.4-12.3); Monocytes Absolute Auto 0.4 X10*3/uL (0.1-1.2); Monocytes Percent Auto 10.2 % (2-11); Neutrophils Absolute Auto 2.4 x10*3/uL (2.0-8.3); Neutrophils Percent Auto 57.1 % (45-73); Platelet Count 203 X10*3/uL (160-400); Red Blood Count 3.98 X10*6/uL (4.20-5.50); Red Cell Distribution Width 12.7 % (11.0-16.0); White Blood Count 4.1 X10*3/uL (4.8-10.8)
[2021-08-27 10:08] LABS: INTERNATIONAL NORM RATIO 0.9 (0.9-1.1); Prothrombin Time 10.5 SEC (10.0-13.1)
[2021-08-27 10:10] VITALS: BP 137/58; PULSE 64; RESP 14
--- NOTE | 2021-08-27 10:15 | PC.NURSE ---
PATIENT WENT TO MRI WITH THIS RN AND STROKE RN JOSE GUADALUPE , NO NERU CHANGES EVIDENT . VITALS STABLE . PATIENT AWARE OF PLAN OF CARE .
[2021-08-27 10:16] LABS: Prothrombin Time Whole Bld POC 11.9 sec (11.1-13.5)
[2021-08-27 10:17] LABS: Glucose, Whole Blood 87 mg/dL (60-115)
[2021-08-27 10:19] LABS: Alanine Aminotransferase 17 U/L (0-31); Albumin Level 4.4 g/dL (3.5-5.0); Alkaline Phosphatase 84 U/L (39-117); Anion Gap 13 (12-20); Aspartate Amino Transferase 21 U/L (5-31); Bilirubin Total 0.2 mg/dL (0.0-1.0); Blood Urea Nitrogen 17 mg/dL (9-16); Carbon Dioxide 26 mmol/L (22-29); Chloride 106 mmol/L (96-108); Creatinine Clr Calc Pharmacy 76.6; Estimated Glomerular Filt Rate > 60; Glucose Random 90 mg/dL (60-115); Potassium 4.5 mmol/L (3.3-5.1); Sodium 140 mmol/L (135-145); Total Protein 6.7 g/dL (6.5-8.0)
[2021-08-27 10:22] LABS: Troponin-I High Sensitivity < 3.5 ng/L (<3.5-17.0)
[2021-08-27 11:54] LABS: COVID-19 Test Negative (Negative)
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
[2021-08-27] MEDS: Butalb/Acetamin/Caff 50/325/40 TABLET 1 TAB PO (12:17)
--- NOTE | 2021-08-27 12:36 | PHA.MEDREC ---
Pharmacy Consult ? Medication Reconciliation Pharmacy has completed the medication reconciliation.
[2021-08-27 14:08] VITALS: BP 131/69; PULSE 63; RESP 16; TEMP 36.9; O2SAT 97
[2021-08-27] MEDS: oxyCODONE HCl Immed Release 5 MG TABLET PO ×2 (14:14→21:26)
--- NOTE | 2021-08-27 14:14 | P.HPHOSP_ITS ---
History of Present Illness Date of Service: 08/27/21 Chief Complaint: Syncope Review of Systems Review of Systems: Denies any recent fever chills or decrease in appetite respiratory denies any shortness of breath coverage production cardiovascular denies chest pain gastrointestinal denies any dysphagia abdominal pain nausea vomiting or diar real genitourinary denies any dysuria frequency or hematuria musculoskeletal denies any joint pain or swelling neuropsych denies any weakness or seizures all other systems reviewed are negative [facility] Medical History (Updated 08/27/21 @ 14:16 by Olga Lidia Eisenberg NP) Allergic rhinitis Anemia Anxiety with depression Arthritis Asthma Back pain Bunion of left foot Chronic sinusitis Colon polyps COVID-19 vaccine administered Depression Fatty liver GERD (gastroesophageal reflux disease) Herpes Hyperlipidemia Hypotension Labral tear of right hip joint Malabsorption due to intolerance, not elsewhere classified Migraines Neck pain Neutropenia Postconcussion syndrome Postlaminectomy syndrome Sacroiliitis Spinal stenosis Family History Father No problems noted. Mother Cervical spine tumor Brother No problems noted. Brother No problems noted. Brother No problems noted. Brother No problems noted. Sister Mental health disorder Son No problems noted. Daughter No problems noted. Surgical History H/O colonoscopy H/O endoscopy H/O laminectomy History of appendectomy History of endometrial ablation History of hip surgery Hx of abdominal surgery S/P bilateral foot surgery S/P laparoscopic sleeve gastrectomy S/P panniculectomy S/P tonsillectomy Status post bariatric surgery Social History Household Members: Spouse Housing: House Are you a primary respiratory care assistant to a significant other at home: No Do you presently have visiting nurse or other home services: No Alcohol intake: never Patient Tobacco Use Status: Never used Tobacco Second Hand Smoke Exposure: No Substance Use Type: Marijuana Advance Directives: Yes Advance Directives Information Provided: No Advance Directives on File: No service: No Current occupational status: disabled Meds Allergies Allergy/AdvReac Type Severity Reaction Status Date / Time Iodinated Contrast Media Allergy Intermediate HIVES Verified 08/23/21 09:19 [Iodinated Contrast Media - IV Dye] ketorolac [From Toradol] Allergy Intermediate localized Verified 08/23/21 09:19 redness/swelling Active Medications: Current Medications Acetaminophen (Acetaminophen 325 Mg Tablet) 650 mg PO Q6H PRN PRN Reason: Pain, Mild (Pain Scale 1-3) Albuterol Sulfate (Albuterol Sulfate 90 Mcg 8 Gm Inhaler) 2 puff INHALE Q4H PRN PRN Reason: shortness of breath or wheezing Brimonidine Tartrate (Brimonidine Tartrate 0.2% Oph 5 Ml Bottle) 1 drop EYE- BOTH BID [facility] Clonazepam (Clonazepam 1 Mg Tablet) 1 mg PO TID [facility] Enoxaparin Sodium (Enoxaparin Sodium 40 Mg/0.4 Ml Syringe) 40 mg SUBCUT Q24H [facility] Fluticasone/Vilanterol (Fluticasone/Vilanterol 200/25 Blst.W.Dev) 1 puff INHALE RDAILY [facility] Gabapentin (Gabapentin 600 Mg Tablet) 600 mg PO BID [facility] Lidocaine (Lidocaine 4 % Patch Adh..Patch) 1 patch TRANSDERMA DAILY [facility] Naproxen (Naproxen 500 Mg Tablet) 500 mg PO BID [facility] Ondansetron HCl (Ondansetron Hcl 4 Mg/2 Ml Vial) 4 mg IVPUSH Q8H PRN PRN Reason: Nausea and Vomiting Oxycodone HCl (Oxycodone Hcl Immed Release 5 Mg Tablet) 5 mg PO QID PRN PRN Reason: pain (scale score 7-10) Paroxetine HCl (Paroxetine Hcl 10 Mg Tablet) 10 mg PO BEDTIME [facility] Paroxetine HCl (Paroxetine Hcl 40 Mg Tablet) 40 mg PO BEDTIME [facility] Pharmacy Consult (Consult Rx Perform Med Rec) 1 each MISCELLANE ONCE PRN PRN Reason: Consult order Quetiapine Fumarate (Quetiapine Fumarate 25 Mg Tablet) 25 mg PO DAILY [facility] Quetiapine Fumarate (Quetiapine Fumarate 200 Mg Tablet) 200 mg PO BEDTIME [facility] Sodium Chloride (0.9 % Sodium Chloride Flush 3 Ml Syringe) 3 ml IVFLUSH QSHIFT [facility] Home Medications Medication Instructions Recorded Confirmed Last Taken Type clonazepam 1 mg tablet 1 mg PO TID 11/20/19 08/27/21 08/27/21 History quetiapine 100 mg tablet 200 mg PO BEDTIME 03/14/20 08/27/21 08/26/21 History quetiapine 25 mg tablet 25 mg PO DAILY 01/16/21 08/27/21 08/26/21 History xcnndpun-bchalpni-hdvo 45 mg-folic cap PO 01/17/21 07/30/21 08/26/21 History acid 800 mcg-vit K 120 mcg capsule (Bariatric Multivitamins) naloxone 4 mg/actuation nasal 4 mg intranasal Q2M PRN Opiate 02/15/21 08/27/21 Unknown History spray (Narcan) Reversal brimonidine 0.2 % eye drops 1 drp ophthalmic (eye) BID 04/12/21 08/27/21 08/27/21 History paroxetine HCl 40 mg tablet 40 mg PO BEDTIME 08/23/21 08/27/21 08/26/21 History paroxetine HCl 10 mg tablet 1 tab PO BEDTIME 08/27/21 08/27/21 08/26/21 History Physical Exam Vital Signs and Narrative: Vital Signs: Last Vital Signs Temp 98.3 F 08/27/21 09:19 Pulse 64 08/27/21 10:10 Resp 14 08/27/21 10:10 BP 137/58 L 08/27/21 10:10 Pulse Ox 95 08/27/21 09:19 O2 Del Method 08/27/21 09:19 BMI result Body Mass Index 20.4 Results Labs CBC and Chem 7: 08/27/21 09:50 08/27/21 09:50 Labs: Laboratory Results - last 24 hr 08/27/21 08/27/21 08/27/21 09:50 09:50 09:50 MCV 94.0 MCH 31.4 MCHC 33.4 RDW 12.7 Plt Count 203 MPV 9.4 Immature Gran % (Auto) 0.2 Neut % (Auto) 57.1 Lymph % (Auto) 30.1 [place] % (Auto) 10.2 Eos % (Auto) 1.9 Baso % (Auto) 0.5 Lymph # (Auto) 1.2 [place] # (Auto) 0.4 Eos # (Auto) 0.1 Baso # (Auto) 0.0 Abs Immat Gran (auto) 0.01 Absolute Neuts (auto) 2.4 Absolute Nucleated RBC 0.000 Nucleated RBC % (auto) 0.0 PT 10.5 Whole Blood PT INR 0.9 Whole Blood INR Anion Gap 13 Estim Creat Clear Calc 76.6 Estimated GFR > 60 POC Glucose Random Glucose 90 Calcium 9.0 D Total Bilirubin 0.2 AST 21 ALT 17 Alkaline Phosphatase 84 Troponin I High Sens Total Protein 6.7 Albumin 4.4 COVID-19 (PIETER) COVID-19 Clin Com 08/27/21 08/27/21 08/27/21 09:50 10:13 10:13 MCV MCH MCHC RDW Plt Count MPV Immature Gran % (Auto) Neut % (Auto) Lymph % (Auto) [place] % (Auto) Eos % (Auto) Baso % (Auto) Lymph # (Auto) [place] # (Auto) Eos # (Auto) Baso # (Auto) Abs Immat Gran (auto) Absolute Neuts (auto) Absolute Nucleated RBC Nucleated RBC % (auto) PT Whole Blood PT 11.9 INR Whole Blood INR 1.0 Anion Gap Estim Creat Clear Calc Estimated GFR POC Glucose 87 Random Glucose Calcium Total Bilirubin AST ALT Alkaline Phosphatase Troponin I High Sens < 3.5 Total Protein Albumin COVID-19 (PIETER) COVID-19 Clin Com 08/27/21 11:27 MCV MCH MCHC RDW Plt Count MPV Immature Gran % (Auto) Neut % (Auto) Lymph % (Auto) [place] % (Auto) Eos % (Auto) Baso % (Auto) Lymph # (Auto) [place] # (Auto) Eos # (Auto) Baso # (Auto) Abs Immat Gran (auto) Absolute Neuts (auto) Absolute Nucleated RBC Nucleated RBC % (auto) PT Whole Blood PT INR Whole Blood INR Anion Gap Estim Creat Clear Calc Estimated GFR POC Glucose Random Glucose Calcium Total Bilirubin AST ALT Alkaline Phosphatase Troponin I High Sens Total Protein Albumin COVID-19 (PIETER) Negative COVID-19 Clin Com See Note Imaging Radiologist's Impressions: Impressions Head CT 08/27/21 09:50 IMPRESSION: No acute intracranial abnormality. Cervical Spine CT 08/27/21 10:00 IMPRESSION: C5-C6 and C6-C7 disc prosthesis for fusion. No visible acute fracture, dislocation or subluxation seen. Fleischner guidelines were followed. Brain MRI 08/27/21 10:48 IMPRESSION: No acute infarct, mass lesion, intracranial hemorrhage, or evidence of hydrocephalus. Nonspecific T2/FLAIR hyperintensity seen in the bilateral cerebral white matter. Assessment and Plan (1) Chronic left shoulder pain: Status: Acute Plan 61 year old women placed on observation for syncope while getting an xray for her shoulder pain Syncope possibly vasovagal from pain monitor on telemetry echocardiogram Neurology consult Asthma no exacerbation Continue inhalers chronic pain including shoulder pain, shoulder x-ray showing arthritis without fracture di slocation continue gabapentin and oxycodone Mental health continue home medications DVT prophylaxis with Lovenox Attending Dr. Hennessy Full code OBS Quality Stroke Does the patient have a stroke diagnosis?: No VTE Prior VTE?: No VTE Risk Level:: Medical - moderate - high VTE Device Contraindication: Treatment Not Indicated VTE Drug Contraindication: N/A - Med Ordered
--- NOTE | 2021-08-27 14:25 | P.CNNE_ITS ---
History of Present Illness Data of Consult Service Date: 08/27/21 Primary Care Provider: Corinne Figueroa MD HPI Reason for consult: Syncope 61 years old woman with previous history of obesity status post bariatric powell rgery and significant weight loss, an episode of passing out a year ago with no obvious explanation though her blood pressure has come down to 90 systolic in the past, came to hospital for and x-ray for shoulder pain. Apparently while having the procedure she fell down and it was not clear if she passed out or not. There was no witnessing of conversion or seizure. Review of Systems Review of Systems: No recent cold or flu-like PMFSH Past Medical History Medical History (Updated 08/27/21 @ 14:16 by Olga Lidia Eisenberg NP) Allergic rhinitis Anemia Anxiety with depression Arthritis Asthma Back pain Bunion of left foot Chronic sinusitis Colon polyps COVID-19 vaccine administered Depression Fatty liver GERD (gastroesophageal reflux disease) Herpes Hyperlipidemia Hypotension Labral tear of right hip joint Malabsorption due to intolerance, not elsewhere classified Migraines Neck pain Neutropenia Postconcussion syndrome Postlaminectomy syndrome Sacroiliitis Spinal stenosis Family History Family History Father No problems noted. Mother Cervical spine tumor Brother No problems noted. Brother No problems noted. Brother No problems noted. Brother No problems noted. Sister Mental health disorder Son No problems noted. Daughter No problems noted. Surgical History Surgical History H/O colonoscopy H/O endoscopy H/O laminectomy History of appendectomy History of endometrial ablation History of hip surgery Hx of abdominal surgery S/P bilateral foot surgery S/P laparoscopic sleeve gastrectomy S/P panniculectomy S/P tonsillectomy Status post bariatric surgery Social History Social History Household Members: Spouse Housing: House Are you a primary senior care manager to a significant other at home: No Do you presently have visiting nurse or other home services: No Alcohol intake: never Patient Tobacco Use Status: Never used Tobacco Second Hand Smoke Exposure: No Substance Use Type: Marijuana Advance Directives: Yes Advance Directives Information Provided: No Advance Directives on File: No service: No Current occupational status: disabled Meds Allergies Allergy/AdvReac Type Severity Reaction Status Date / Time Iodinated Contrast Media Allergy Intermediate HIVES Verified 08/23/21 09:19 [Iodinated Contrast Media - IV Dye] ketorolac [From Toradol] Allergy Intermediate localized Verified 08/23/21 09:19 redness/swelling Active Medications: Current Medications Acetaminophen (Acetaminophen 325 Mg Tablet) 650 mg PO Q6H PRN PRN Reason: Pain, Mild (Pain Scale 1-3) Albuterol Sulfate (Albuterol Sulfate 90 Mcg 8 Gm Inhaler) 2 puff INHALE Q4H PRN PRN Reason: shortness of breath or wheezing Brimonidine Tartrate (Brimonidine Tartrate 0.2% Oph 5 Ml Bottle) 1 drop EYE- BOTH BID [facility] Clonazepam (Clonazepam 1 Mg Tablet) 1 mg PO TID [facility] Enoxaparin Sodium (Enoxaparin Sodium 40 Mg/0.4 Ml Syringe) 40 mg SUBCUT Q24H [facility] Fluticasone/Vilanterol (Fluticasone/Vilanterol 200/25 Blst.W.Dev) 1 puff INHALE RDAILY [facility] Gabapentin (Gabapentin 600 Mg Tablet) 600 mg PO BID [facility] Lidocaine (Lidocaine 4 % Patch Adh..Patch) 1 patch TRANSDERMA DAILY [facility] Naproxen (Naproxen 500 Mg Tablet) 500 mg PO BID [facility] Ondansetron HCl (Ondansetron Hcl 4 Mg/2 Ml Vial) 4 mg IVPUSH Q8H PRN PRN Reason: Nausea and Vomiting Oxycodone HCl (Oxycodone Hcl Immed Release 5 Mg Tablet) 5 mg PO QID PRN PRN Reason: pain (scale score 7-10) Last Admin: 08/27/21 14:14 Dose: 5 mg Paroxetine HCl (Paroxetine Hcl 10 Mg Tablet) 10 mg PO BEDTIME [facility] Paroxetine HCl (Paroxetine Hcl 40 Mg Tablet) 40 mg PO BEDTIME [facility] Pharmacy Consult (Consult Rx Perform Med Rec) 1 each MISCELLANE ONCE PRN PRN Reason: Consult order Quetiapine Fumarate (Quetiapine Fumarate 25 Mg Tablet) 25 mg PO DAILY [facility] Quetiapine Fumarate (Quetiapine Fumarate 200 Mg Tablet) 200 mg PO BEDTIME [facility] Sodium Chloride (0.9 % Sodium Chloride Flush 3 Ml Syringe) 3 ml IVFLUSH QSHIFT [facility] Home Medications Medication Instructions Recorded Confirmed Last Taken Type clonazepam 1 mg tablet 1 mg PO TID 11/20/19 08/27/21 08/27/21 History quetiapine 100 mg tablet 200 mg PO BEDTIME 03/14/20 08/27/21 08/26/21 History quetiapine 25 mg tablet 25 mg PO DAILY 01/16/21 08/27/21 08/26/21 History nikixyev-lxahgttx-ckdu 45 mg-folic cap PO 01/17/21 07/30/21 08/26/21 History acid 800 mcg-vit K 120 mcg capsule (Bariatric Multivitamins) naloxone 4 mg/actuation nasal 4 mg intranasal Q2M PRN Opiate 02/15/21 08/27/21 Unknown History spray (Narcan) Reversal brimonidine 0.2 % eye drops 1 drp ophthalmic (eye) BID 04/12/21 08/27/21 08/27/21 History paroxetine HCl 40 mg tablet 40 mg PO BEDTIME 08/23/21 08/27/21 08/26/21 History paroxetine HCl 10 mg tablet 1 tab PO BEDTIME 08/27/21 08/27/21 08/26/21 History Physical Exam Vital Signs: Vital Signs: Last Vital Signs Temp 98.3 F 08/27/21 09:19 Pulse 64 08/27/21 10:10 Resp 14 08/27/21 10:10 BP 137/58 L 08/27/21 10:10 Pulse Ox 95 08/27/21 09:19 O2 Del Method 08/27/21 09:19 BMI result Body Mass Index 20.4 Neuro: Other: She was alert and awake with normal spontaneity of speech fluency comprehension and affect. Face was symmetrical. Visual pedraza are full. There was no pronator drift. Iztxrx-ve-fweb testing was normal. Deep tendon reflexes were absent with flat plantars. Results Labs CBC & Chem 7: 08/27/21 09:50 08/27/21 09:50 Labs: Short CBC 08/27/21 Range/Units 09:50 WBC 4.1 L (4.8-10.8) X10*3/uL Hgb 12.5 (12.0-16.0) g/dl Hct 37.4 (37.0-47.0) % Plt Count 203 (160-400) X10*3/uL BMP 08/27/21 09:50 Sodium 140 Potassium 4.5 Chloride 106 Carbon Dioxide 26 BUN 17 H Creatinine 0.73 Calcium 9.0 D Liver Function 08/27/21 Range/Units 09:50 Total Bilirubin 0.2 (0.0-1.0) mg/dL AST 21 (5-31) U/L ALT 17 (0-31) U/L Alkaline Phosphatase 84 (39-117) U/L Albumin 4.4 (3.5-5.0) g/dL Noncontrast MRI of brain did not reveal any acute abnormality. Multiple bilateral hyperintense lesions were noted whose pattern was nonspecific with mild suggestion of demyelinating disease. Assessment and Plan (1) Abnormal finding on MRI of brain: Status: Acute Nonspecific symptomatology with nonfocal examination. Her MRI of brain revealed multiple lesions that were also nonspecific but not clearly indicated of of stroke. There were slightly suggestive of demyelinating disease. In any case, for syncopal episode, I recommend an EEG though index of suspicion for epilepsy is low. Otherwise baby aspirin daily and control of vascular risk factors is recommended. To avoid syncope, I recommend avoiding antihypertensives at this time Procedures Date of Service Date of Service: 08/27/21
[2021-08-27] MEDS: clonazePAM 1 MG TABLET PO ×2 (16:12→21:16)
[2021-08-27] MEDS: Enoxaparin Sodium 40 MG/0.4 ML SYRINGE SUBCUT (16:30)
[2021-08-27] MEDS: 0.9 % Sodium Chloride Flush 3 ML SYRINGE IVFLUSH (16:39)
[2021-08-27] MEDS: PARoxetine HCL 40 MG TABLET PO (21:14)
[2021-08-27] MEDS: Brimonidine Tartrate 0.2% Oph 5 ML BOTTLE 1 DROP EYE-BOTH (21:14)
[2021-08-27] MEDS: NaPROXEN 500 MG TABLET PO (21:14)
[2021-08-27] MEDS: PARoxetine HCL 10 MG TABLET PO (21:14)
[2021-08-27] MEDS: QUEtiapine Fumarate 200 MG TABLET PO (21:16)
[2021-08-27] MEDS: Gabapentin 600 MG TABLET PO (21:16)
[2021-08-27] MEDS: ondansetron HCL 4 MG/2 ML VIAL IVPUSH (21:16)
[2021-08-28] VITALS (11 sets, daily range): BP systolic 85–132; BP diastolic 43–60; PULSE 60–83; RESP 12–18; TEMP 36–36.6; O2SAT 96–99
--- NOTE | 2021-08-28 01:44 | PM.EVENT ---
Event Note Date of Service: 08/28/21 Event Note: Although orthostatics are negative patient does have hypotension, will give 1 L of LR bolus.
[2021-08-28] MEDS: 0.9 % Sodium Chloride Flush 3 ML SYRINGE IVFLUSH ×3 (02:02→23:52)
[2021-08-28] MEDS: Lactated Ringers 1,000 ML 999 ML IV (02:02)
[2021-08-28] MEDS: oxyCODONE HCl Immed Release 5 MG TABLET PO ×4 (02:44→21:22)
--- NOTE | 2021-08-28 07:00 | CA_ITS ---
Transthoracic Echocardiogram Patient (Last, First, Middle): Therese Phelps D Gender: Female Date of : 1960 Age: 61 Procedure Date: 08/28/2021 Procedure Type: Transthoracic Echocardiogram [place] [facility] [place] Height: 170.18 cm Weight: 61.24 kg BSA: 1.71 m2 Heart Rate: bpm BP: 132 / 59 mmHg Pastry Mixer: Referring MD: Janae Queen MD Restaurant Supervisor: Christian Rodriguez MD Symptoms: syncope, abnml MRI, do with Bubble Study Quality: Fair ECG Rhythm: Sinus Conclusions: - Essentially normal study with no evidence of shunting Findings Left Ventricle Normal left ventricular size, thickness, and systolic function. The visually estimated ejection fraction is between 60-65%. Spectral Doppler is indicative of a normal filling pattern. Right Ventricle Normal right ventricular cavity size and systolic function. Atria Both atria are normal in size. There is no evidence of interatrial shunt by agitated saline. Aortic Valve Normal aortic valve structure and function. There is no aortic valve stenosis. There is no aortic valve regurgitation. Mitral Valve Normal mitral valve structure and function. There is trace mitral valve regurgitation. There is no mitral valve stenosis. Pulmonic Valve The pulmonic valve is likely normal. Tricuspid Valve Normal tricuspid valve structure. There is trace tricuspid valve regurgitation. The right ventricular systolic pressure is normal. The right ventricular systolic pressure is 23 mmHg. Normal right atrial pressure. There is no evidence of pulmonary hypertension. Great Vessels All visible segments of the aorta are normal in size. The pulmonary artery was not well visualized. Venous The inferior vena cava is normal in size and collapses greater than 50% with inspiration. Pericardium/Pleural There is no evidence of pericardial effusion. Prior Study Comparison No significant change compared to prior study dated: 05/03/2019. Recommendations, Care & Conclusions Consider a SHARON if clinically appropriate. Measurements 2D Linear Measurements IVSd: 1.05 0.6-0.9/0.6-1.0 cm LVIDd: 4.35 3.9-5.3/4.2-5.9 cm LVIDd Index: 2.54 2.4-3.2/2.2-3.1 cm/m2 LVIDs: 2.52 2.0-3.6 cm LVPWd: 1.05 0.7-1.1 cm Ao Root: 3.00 2.1-3.5 cm LA Diam: 3.30 2.7-3.8/3.0-4.0 cm LAIDs Index: 1.93 1.5-2.3 cm/m2 LV Mass: 193.46 67-162/88-224 g LV Mass Index: 113.14 43-95/49-115 g/m2 LVOT Diam: 2.30 3.0+(-)1.3 cm Mitral Valve MV Pk E: 0.97 MV PK A: 0.49 MV Decel Time: 239.00 E/A: 2.00 E'Lateral: 12.30 E'Medial: 9.57 E/E' Med: 10.20 E/E' Lat: 7.90 PHT: 70.00 MVA PHT: 3.14 Decel [place]: 4.06 Aortic Valve AoV Pk Kiko: 1.29 AoV Mn Kiko: 0.82 AoV VTI: 0.32 AoV Pk Grad: 7.00 Aov Mn Grad: 3.00 PHONG Cont.VTI: 3.94 LVOT LVOT Pk Kiko: 1.11 LVOT Mn Kiko: 0.71 LVOT VTI: 0.30 LVOT Pk Grad: 5.00 LVOT Mn Grad: 2.00 LVOT Diam: 2.30 LVOT Area: 4.15 Diastolic Function MV Pk E: 0.97 MV Pk A: 0.49 E/A: 2.00 E'Medial: 9.57 E/E' Med: 10.20 E' Laterial: 12.30 E/E' Lat: 7.90 Right Ventricle TAPSE (mm): 22.00 Tricuspid Valve TR Pk Kiko: 2.23 TR Pk Grad: 20.00 RA Press: 3.00 RVSP: 23.00 Great Vessels Aorta Ao Root-2D: 3.00 2.0-3.7 cm Ao Asc: 3.20 2.1-3.4 cm Pulmonary Valve PV Pk Kiko: 1.03 Peak PV Grad: 4.00 Updated in Other Vendor System with Status of Final Christian Rodriguez MD electronically signed on 08/28/2021 3:45:29 PM with status of Final
[2021-08-28 07:04] LABS: Basophils Percent Auto 1.1 % (0-2); Eosinophils Absolute Auto 0.1 X10*3/uL (0.0-0.4); Hematocrit 34.8 % (37.0-47.0); Hemoglobin 11.7 g/dl (12.0-16.0); Lymphocytes Absolute Auto 2.2 X10*3/uL (1.2-4.9); Lymphocytes Percent Auto 59.9 % (20-40); MANUAL DIFF FLAG SCAN; Mean Corpuscular HGB Conc 33.6 g/dl (31.0-35.0); Mean Corpuscular Hemoglobin 31.8 pg (27.0-33.0); Mean Corpuscular Volume 94.6 fL (80.0-98.0); Mean Platelet Volume 9.9 fL (9.4-12.3); Monocytes Absolute Auto 0.4 X10*3/uL (0.1-1.2); Monocytes Percent Auto 11.4 % (2-11); Neutrophils Absolute Auto 0.9 x10*3/uL (2.0-8.3); Neutrophils Percent Auto 24.6 % (45-73); Platelet Count 189 X10*3/uL (160-400); Red Blood Count 3.68 X10*6/uL (4.20-5.50); Red Cell Distribution Width 12.6 % (11.0-16.0); SCAN SMEAR FLAG 1; White Blood Count 3.7 X10*3/uL (4.8-10.8)
[2021-08-28 07:07] LABS: Anion Gap 9 (12-20); Blood Urea Nitrogen 16 mg/dL (9-16); Calcium 9.1 mg/dL (8.4-10.2); Carbon Dioxide 32 mmol/L (22-29); Chloride 105 mmol/L (96-108); Creatinine Clr Calc Pharmacy 79.9; Estimated Glomerular Filt Rate > 60; Glucose Random 87 mg/dL (60-115); Potassium 4.7 mmol/L (3.3-5.1); Sodium 141 mmol/L (135-145)
[2021-08-28 08:14] LABS: SLIDE REVIEW VERIFIED
[2021-08-28] MEDS: clonazePAM 1 MG TABLET PO ×3 (09:01→20:26)
[2021-08-28] MEDS: NaPROXEN 500 MG TABLET PO ×2 (09:01→20:25)
[2021-08-28] MEDS: Gabapentin 600 MG TABLET PO ×2 (09:01→20:26)
[2021-08-28] MEDS: Lidocaine 4 % Patch ADH..PATCH 1 PATCH TRANSDERMA (09:02)
[2021-08-28] MEDS: QUEtiapine Fumarate 25 MG TABLET PO (09:02)
[2021-08-28] MEDS: Fluticasone/Vilanterol 200/25 BLST.W.DEV 1 PUFF INHALE (09:30)
[2021-08-28] MEDS: Brimonidine Tartrate 0.2% Oph 5 ML BOTTLE 1 DROP EYE-BOTH ×2 (11:16→21:22)
--- NOTE | 2021-08-28 11:56 | HO.PM.IMPN ---
Subjective Subjective Date of Service: 08/28/21 Review of Systems Follow up syncope feeling better Physical Exam Vital Signs: Vital Signs: Last Vital Signs Temp 97.4 F 08/28/21 11:38 Pulse 77 08/28/21 11:38 Resp 16 08/28/21 11:38 BP 105/54 L 08/28/21 11:38 Pulse Ox 96 08/28/21 11:38 O2 Del Method 08/28/21 11:38 BMI result Body Mass Index 20.4 Appearing in no acute distress lung sounds are clear to auscultation heart regular rate rhythm, clear S1, S2 positive bowel sounds, abdomen is soft, nontender neuro patient is alert x3, no focal deficits Objective Data Active Medications Acetaminophen (Acetaminophen 325 Mg Tablet) 650 mg PO Q6H PRN PRN Reason: Pain, Mild (Pain Scale 1-3) Albuterol Sulfate (Albuterol Sulfate 90 Mcg 8 Gm Inhaler) 2 puff INHALE Q4H PRN PRN Reason: shortness of breath or wheezing Brimonidine Tartrate (Brimonidine Tartrate 0.2% Oph 5 Ml Bottle) 1 drop EYE-BOTH BID [facility] Last Admin: 08/28/21 11:16 Dose: 1 drop Documented By: NGOC Clonazepam (Clonazepam 1 Mg Tablet) 1 mg PO TID [facility] Last Admin: 08/28/21 09:01 Dose: 1 mg Documented By: NGOC Enoxaparin Sodium (Enoxaparin Sodium 40 Mg/0.4 Ml Syringe) 40 mg SUBCUT Q24H [facility] Last Admin: 08/27/21 16:30 Dose: 40 mg Documented By: LUIS ANTONIO Fluticasone/Vilanterol (Fluticasone/Vilanterol 200/25 Blst.W.Dev) 1 puff INHALE RDAILY [facility] Last Admin: 08/28/21 09:30 Dose: 1 puff Documented By: GABRIELLE Gabapentin (Gabapentin 600 Mg Tablet) 600 mg PO BID [facility] Last Admin: 08/28/21 09:01 Dose: 600 mg Documented By: NGOC Lidocaine (Lidocaine 4 % Patch Adh..Patch) 1 patch TRANSDERMA DAILY [facility] Last Admin: 08/28/21 09:02 Dose: 1 patch Documented By: NGOC Naproxen (Naproxen 500 Mg Tablet) 500 mg PO BID [facility] Last Admin: 08/28/21 09:01 Dose: 500 mg Documented By: NGOC Ondansetron HCl (Ondansetron Hcl 4 Mg/2 Ml Vial) 4 mg IVPUSH Q8H PRN PRN Reason: Nausea and Vomiting Last Admin: 08/27/21 21:16 Dose: 4 mg Documented By: CARLITOS Oxycodone HCl (Oxycodone Hcl Immed Release 5 Mg Tablet) 5 mg PO QID PRN PRN Reason: pain (scale score 7-10) Last Admin: 08/28/21 09:08 Dose: 5 mg Documented By: NGOC Paroxetine HCl (Paroxetine Hcl 10 Mg Tablet) 10 mg PO BEDTIME [facility] Last Admin: 08/27/21 21:14 Dose: 10 mg Documented By: CARLITOS Paroxetine HCl (Paroxetine Hcl 40 Mg Tablet) 40 mg PO BEDTIME [facility] Last Admin: 08/27/21 21:14 Dose: 40 mg Documented By: CARLITOS Pharmacy Consult (Consult Rx Perform Med Rec) 1 each MISCELLANE ONCE PRN PRN Reason: Consult order Quetiapine Fumarate (Quetiapine Fumarate 25 Mg Tablet) 25 mg PO DAILY [facility] Last Admin: 08/28/21 09:02 Dose: 25 mg Documented By: NGOC Quetiapine Fumarate (Quetiapine Fumarate 200 Mg Tablet) 200 mg PO BEDTIME [facility] Last Admin: 08/27/21 21:16 Dose: 200 mg Documented By: CARLITOS Sodium Chloride (0.9 % Sodium Chloride Flush 3 Ml Syringe) 3 ml IVFLUSH QSHIFT [facility] Last Admin: 08/28/21 09:12 Dose: 3 ml Documented By: NGOC Labs CBC & Chem 7: 08/28/21 05:31 08/28/21 05:31 Labs: Laboratory Results - last 24 hr 08/28/21 08/28/21 08/28/21 05:31 05:31 05:31 MCV 94.6 MCH 31.8 MCHC 33.6 RDW 12.6 Plt Count 189 MPV 9.9 Immature Gran % (Auto) 0.0 Neut % (Auto) 24.6 L Lymph % (Auto) 59.9 H [place] % (Auto) 11.4 H Eos % (Auto) 3.0 Baso % (Auto) 1.1 Lymph # (Auto) 2.2 [place] # (Auto) 0.4 Eos # (Auto) 0.1 Baso # (Auto) 0.0 Abs Immat Gran (auto) 0.00 Absolute Neuts (auto) 0.9 L Absolute Nucleated RBC 0.000 Nucleated RBC % (auto) 0.0 Smear Tech's Comments VERIFIED Anion Gap 9 L Estim Creat Clear Calc 79.9 Estimated GFR > 60 Random Glucose 87 Calcium 9.1 Magnesium 2.0 Cancelled Assessment and Plan (1) Syncope: Status: Acute Plan 61 year old women placed on observation for syncope while getting an xray for her shoulder pain Syncope possibly vasovagal from pain MRI without acute infarction or bleed No arrhythmia on telemetry echocardiogram results pending Neurology consult recommend EEG Hypotension Low systolic blood pressures in the 80s and 90s Not on any antihypertensives at home Received IV fluids with good effect Will continue IV fluids for now Asthma no exacerbation Continue inhalers chronic pain including shoulder pain, shoulder x-ray showing arthritis without fracture dislocation continue gabapentin and oxycodone Mental health continue home medications DVT prophylaxis with Lovenox Attending Dr. Hennessy Full code OBS Quality Stroke Does the patient have a stroke diagnosis?: No VTE Prior VTE?: No VTE Risk Level:: Medical - moderate - high VTE Device Contraindication: Treatment Not Indicated VTE Drug Contraindication: N/A - Med Ordered
--- NOTE | 2021-08-28 12:24 | MHC.CM.PN ---
MET WITH PT WHO IS INDEPENDENT SHE LIVES WITH HER SHE IS INDEOENDEN T CM INTERVETION IS NOT INDICATED DC PLAN HOME NO SERVCIES PT IS [place] X 3 HAS OWN RIDE HOME
--- NOTE | 2021-08-28 12:33 | MHC.CM.PN ---
met with ptgs xavier Gurwinder pt [facility] which pt will retrun to when dcd may, needassisdt with transportation back
[2021-08-28] MEDS: 0.9 % Sodium Chloride 1,000 ML 100 ML IVCONT ×2 (12:34→23:51)
[2021-08-28] MEDS: Enoxaparin Sodium 40 MG/0.4 ML SYRINGE SUBCUT (14:54)
[2021-08-28] MEDS: ondansetron HCL 4 MG/2 ML VIAL IVPUSH (17:44)
[2021-08-28] MEDS: QUEtiapine Fumarate 200 MG TABLET PO (20:26)
[2021-08-28] MEDS: PARoxetine HCL 40 MG TABLET PO (20:26)
[2021-08-28] MEDS: PARoxetine HCL 10 MG TABLET PO (20:26)
[2021-08-29] VITALS (7 sets, daily range): BP systolic 108–142; BP diastolic 5–61; PULSE 59–70; RESP 16–18; TEMP 35.7–36.8; O2SAT 95–99
--- NOTE | 2021-08-29 | EEG_ITS ---
This is a 16-channel EEG with an EKG lead. The patient is reported awake during the tracing. Background EEG rhythm is 7 to 8 hertz, 5 to 70 microvolt posteriorly, lower amplitude fast anteriorly. No definite sharp wave spikes or paroxysmal tendency or asymmetry noted. Photic stimulation does not produce any significant driving. Hyperventilation is not performed. Cardiac lead does not reveal any significant abnormality. IMPRESSION: Mild generalized slowing with no epileptic tendency. MD MARÍA Montes/JENN / [id number]
[2021-08-29] MEDS: oxyCODONE HCl Immed Release 5 MG TABLET PO ×3 (03:02→17:20)
--- NOTE | 2021-08-29 07:43 | HO.PM.IMPN ---
Subjective Subjective Date of Service: 08/29/21 Review of Systems Follow up syncope feeling better still dizzy Physical Exam Vital Signs: Vital Signs: Last Vital Signs Temp 98.3 F 08/29/21 07:07 Pulse 70 08/29/21 07:07 Resp 16 08/29/21 07:07 BP 133/55 L 08/29/21 07:07 Pulse Ox 98 08/29/21 07:07 O2 Del Method 08/29/21 07:07 BMI result Body Mass Index 20.4 Appearing in no acute distress lung sounds are clear to auscultation heart regular rate rhythm, clear S1, S2 positive bowel sounds, abdomen is soft, nontender neuro patient is alert x3, no focal deficits Objective Data Active Medications Acetaminophen (Acetaminophen 325 Mg Tablet) 650 mg PO Q6H PRN PRN Reason: Pain, Mild (Pain Scale 1-3) Acetaminophen/Butalbital/Caffeine (Butalb/Acetamin/Caff 50/325/40 Tablet) 1 tab PO Q4H PRN PRN Reason: headache Albuterol Sulfate (Albuterol Sulfate 90 Mcg 8 Gm Inhaler) 2 puff INHALE Q4H PRN PRN Reason: shortness of breath or wheezing Brimonidine Tartrate (Brimonidine Tartrate 0.2% Oph 5 Ml Bottle) 1 drop EYE-BOTH BID [facility] Last Admin: 08/28/21 21:22 Dose: 1 drop Documented By: CHUN Clonazepam (Clonazepam 1 Mg Tablet) 1 mg PO TID [facility] Last Admin: 08/28/21 20:26 Dose: 1 mg Documented By: CHUN Enoxaparin Sodium (Enoxaparin Sodium 40 Mg/0.4 Ml Syringe) 40 mg SUBCUT Q24H [facility] Last Admin: 08/28/21 14:54 Dose: 40 mg Documented By: NGOC Fluticasone/Vilanterol (Fluticasone/Vilanterol 200/25 Blst.W.Dev) 1 puff INHALE RDAILY [facility] Last Admin: 08/28/21 09:30 Dose: 1 puff Documented By: GABRIELLE Gabapentin (Gabapentin 600 Mg Tablet) 600 mg PO BID [facility] Last Admin: 08/28/21 20:26 Dose: 600 mg Documented By: CHUN Sodium Chloride (Ns) 1,000 mls @ 100 mls/hr IVCONT .Q10H [facility] Last Admin: 08/28/21 23:51 Dose: 100 mls/hr Documented By: THEODORA Lidocaine (Lidocaine 4 % Patch Adh..Patch) 1 patch TRANSDERMA DAILY [facility] Last Admin: 08/28/21 09:02 Dose: 1 patch Documented By: NGOC Naproxen (Naproxen 500 Mg Tablet) 500 mg PO BID [facility] Last Admin: 08/28/21 20:25 Dose: 500 mg Documented By: CHUN Ondansetron HCl (Ondansetron Hcl 4 Mg/2 Ml Vial) 4 mg IVPUSH Q8H PRN PRN Reason: Nausea and Vomiting Last Admin: 08/28/21 17:44 Dose: 4 mg Documented By: CHUN Oxycodone HCl (Oxycodone Hcl Immed Release 5 Mg Tablet) 5 mg PO QID PRN PRN Reason: pain (scale score 7-10) Last Admin: 08/29/21 03:02 Dose: 5 mg Documented By: THEODORA Paroxetine HCl (Paroxetine Hcl 10 Mg Tablet) 10 mg PO BEDTIME [facility] Last Admin: 08/28/21 20:26 Dose: 10 mg Documented By: CHUN Paroxetine HCl (Paroxetine Hcl 40 Mg Tablet) 40 mg PO BEDTIME [facility] Last Admin: 08/28/21 20:26 Dose: 40 mg Documented By: CHUN Pharmacy Consult (Consult Rx Perform Med Rec) 1 each MISCELLANE ONCE PRN PRN Reason: Consult order Quetiapine Fumarate (Quetiapine Fumarate 25 Mg Tablet) 25 mg PO DAILY [facility] Last Admin: 08/28/21 09:02 Dose: 25 mg Documented By: NGOC Quetiapine Fumarate (Quetiapine Fumarate 200 Mg Tablet) 200 mg PO BEDTIME [facility] Last Admin: 08/28/21 20:26 Dose: 200 mg Documented By: CHUN Sodium Chloride (0.9 % Sodium Chloride Flush 3 Ml Syringe) 3 ml IVFLUSH QSHIFT [facility] Last Admin: 08/28/21 23:52 Dose: 3 ml Documented By: THEODORA Labs CBC & Chem 7: 08/28/21 05:31 08/28/21 05:31 Labs: Laboratory Results - last 24 hr 08/28/21 05:31 MCV 94.6 MCH 31.8 MCHC 33.6 RDW 12.6 Plt Count 189 MPV 9.9 Immature Gran % (Auto) 0.0 Neut % (Auto) 24.6 L Lymph % (Auto) 59.9 H Creek % (Auto) 11.4 H Eos % (Auto) 3.0 Baso % (Auto) 1.1 Lymph # (Auto) 2.2 Creek # (Auto) 0.4 Eos # (Auto) 0.1 Baso # (Auto) 0.0 Abs Immat Gran (auto) 0.00 Absolute Neuts (auto) 0.9 L Absolute Nucleated RBC 0.000 Nucleated RBC % (auto) 0.0 Smear Tech's Comments VERIFIED Assessment and Plan (1) Syncope: Status: Acute Plan 61 year old women placed on observation for syncope while getting an xray for her shoulder pain Syncope possibly vasovagal from pain MRI without acute infarction or bleed No arrhythmia on telemetry echocardiogram results pending Neurology consult recommend EEG, pending Will add meclizine for dizziness Hypotension. Better with IV fluids Low systolic blood pressures in the 80s and 90s Not on any antihypertensives at home Asthma no exacerbation Continue inhalers chronic pain including shoulder pain, shoulder x-ray showing arthritis without fracture dislocation continue gabapentin and oxycodone Mental health continue home medications DVT prophylaxis with Lovenox Attending Dr. Bernard Full code OBS Quality Stroke Does the patient have a stroke diagnosis?: No VTE Prior VTE?: No VTE Risk Level:: Medical - moderate - high VTE Device Contraindication: Treatment Not Indicated VTE Drug Contraindication: N/A - Med Ordered
[2021-08-29] MEDS: 0.9 % Sodium Chloride Flush 3 ML SYRINGE IVFLUSH (08:09)
[2021-08-29] MEDS: QUEtiapine Fumarate 25 MG TABLET PO (08:11)
[2021-08-29] MEDS: Lidocaine 4 % Patch ADH..PATCH 1 PATCH TRANSDERMA (08:11)
[2021-08-29] MEDS: NaPROXEN 500 MG TABLET PO ×2 (08:11→20:20)
[2021-08-29] MEDS: Gabapentin 600 MG TABLET PO ×2 (08:11→20:20)
[2021-08-29] MEDS: clonazePAM 1 MG TABLET PO ×3 (08:11→20:20)
[2021-08-29] MEDS: Brimonidine Tartrate 0.2% Oph 5 ML BOTTLE 1 DROP EYE-BOTH ×2 (08:12→20:19)
[2021-08-29] MEDS: 0.9 % Sodium Chloride 1,000 ML 100 ML IVCONT (13:00)
[2021-08-29] MEDS: Enoxaparin Sodium 40 MG/0.4 ML SYRINGE SUBCUT (15:00)
[2021-08-29] MEDS: PARoxetine HCL 10 MG TABLET PO (20:19)
[2021-08-29] MEDS: QUEtiapine Fumarate 200 MG TABLET PO (20:20)
[2021-08-29] MEDS: PARoxetine HCL 40 MG TABLET PO (20:20)
[2021-08-30] MEDS: 0.9 % Sodium Chloride Flush 3 ML SYRINGE IVFLUSH (00:39)
[2021-08-30] MEDS: oxyCODONE HCl Immed Release 5 MG TABLET PO ×3 (00:44→12:06)
[2021-08-30] MEDS: 0.9 % Sodium Chloride 1,000 ML 100 ML IVCONT (00:45)
[2021-08-30 03:43] VITALS: BP 123/58; PULSE 65; RESP 18; TEMP 35.9; O2SAT 98
[2021-08-30 07:27] VITALS: BP 134/56; PULSE 71; RESP 16; TEMP 36.2; O2SAT 98
[2021-08-30 08:05] VITALS: PULSE 66; O2SAT 98
[2021-08-30] MEDS: Fluticasone/Vilanterol 200/25 BLST.W.DEV 1 PUFF INHALE (08:05)
[2021-08-30] MEDS: QUEtiapine Fumarate 25 MG TABLET PO (09:06)
[2021-08-30] MEDS: NaPROXEN 500 MG TABLET PO (09:06)
[2021-08-30] MEDS: clonazePAM 1 MG TABLET PO (09:06)
[2021-08-30] MEDS: Gabapentin 600 MG TABLET PO (09:06)
[2021-08-30] MEDS: Lidocaine 4 % Patch ADH..PATCH 1 PATCH TRANSDERMA (09:07)
[2021-08-30] MEDS: Brimonidine Tartrate 0.2% Oph 5 ML BOTTLE 1 DROP EYE-BOTH (09:08)
[2021-08-30 11:11] VITALS: BP 115/53; PULSE 81; RESP 16; TEMP 36.2; O2SAT 98
[2021-08-30] MEDS: Acetaminophen 325 MG TABLET 650 MG PO (11:21)
--- NOTE | 2021-08-30 11:21 | PM.DS ---
DS: Providers Provider Date of Service: 08/30/21 Date of admission: 08/27/21 14:11 Primary care physician: Corinne Figueroa MD Consults: 08/27/21 14:13 Consult to Neurology Routine Consulting Provider: [facility] Reason for consultation: incidental finding on MRI, syncope Has provider been notified: No Attending physician on discharge: Timo Bernard Discharging clinician: Ana Worthy DS: Diagnosis Discharge Diagnosis (1) Syncope: Status: Acute DS: Summary Hospital Course Hospital Course: Patient was admitted to the hospital after a possible syncopal event during x-ray for shoulder pain. MRI done in the ED showed no evidence of acute infarct or bleeding or mass lesion. It did show nonspecific hyperintensity in the bilateral cerebral white matter She underwent echocardiogram which showed no evidence of shunting, was otherwise unremarkable. EKG with no acute changed, no adverse events on telemetry. She was seen in consultation by Neurology due to changes on MRI, who recommended to start aspirin and obtain EEG. EEG showed generalized slowing no evidence of seizure activity. For nonspecific changes seen on MRI neurologist recommended outpatient follow-up with Neurology for further workup. She is recommended to minimize use of meloxicam if possible while taking aspirin. She has documented history of Toradol but takes meloxicam without issue and was comfortable starting a baby aspirin daily. Time Spent with Patient Time attestation: Total time spent providing and/or coordinating discharge services: Discharge coordination time: Greater than 30 minutes Quality: Safe Use of Opioids Does Pt have an Active Cancer Diagnosis on the Problem List?: No Quality: Stroke Does the patient have a stroke diagnosis?: No Physical Exam Vital Signs: Vital Signs: Last Vital Signs Temp 97.1 F 08/30/21 11:11 Pulse 81 08/30/21 11:11 Resp 16 08/30/21 11:11 BP 115/53 L 08/30/21 11:11 Pulse Ox 98 08/30/21 11:11 O2 Del Method 08/30/21 11:11 BMI result Body Mass Index 20.4 Const: General: cooperative, comfortable, alert and awake Nutritional Appearance: average body habitus Orientation/consciousness: patient oriented x3 Resp: Effort & Inspection: normal respiratory effort and able to speak in complete sentences Cardio: Rate: regular rate GI: Palpation (GI): Soft to palpation Neuro: General: patient oriented x3 Extrem: General: Yes no pedal edema DS: Data Data Completed and Pending Completed studies during hospitalization [Text1]: Procedures Alteration of Left Upper Arm, Open Approach (08/22/20) Alteration of Left Upper Leg, Open Approach (08/22/20) Alteration of Right Upper Arm, Open Approach (08/22/20) Alteration of Right Upper Leg, Open Approach (08/22/20) Excision of Abdomen Subcutaneous Tissue and Fascia, Open Approach (06/08/20) Transfer Abdomen Subcutaneous Tissue and Fascia with Skin and Subcutaneous Tissue, Open Approach (06/08/20) Discharge Plan Discharge Patient Disposition: Home, Self-Care Discharge Diagnosis: syncope abnormal brain MRI Referrals: Corinne Figueroa MD [Primary Care Provider] - 1 Week Sweta Evans MD [Physician] - 1 Week Discharge Medications: New aspirin 81 mg capsule 81 mg PO DAILY 30 Days Qty: 30 0RF Continued Breo Ellipta 200-25 mcg/dose blister with device 1 inh inhalation DAILY Qty: 60 6RF fluticasone propionate 50 mcg/actuation spray,suspension 1 spray intranasal DAILY Qty: 16 0RF Rx Instructions: administer into each nostril qhlhamjlxw-nojhkeljslfny-oamz 50-325-40 mg tablet 1 tab PO Q6H PRN (Reason: pain) Qty: 90 0RF meloxicam 15 mg tablet 15 mg PO DAILY Qty: 90 0RF paroxetine HCl 10 mg tablet 1 tab PO BEDTIME albuterol sulfate [ProAir HFA] 90 mcg/actuation HFA aerosol inhaler 2 puff inhalation Q4-6H PRN (Reason: shortness of breath or wheezing) Qty: 8.5 6RF gabapentin 600 mg tablet 600 mg PO BID Qty: 180 3RF clonazepam 1 mg tablet 1 mg PO TID quetiapine 100 mg tablet 200 mg PO BEDTIME quetiapine 25 mg tablet 25 mg PO DAILY Bariatric Multivitamins 45 mg iron- 800 mcg-120 mcg capsule PO lidocaine 5 % adhesive patch,medicated 1 patch topical DAILY 30 Days Qty: 30 3RF Rx Instructions: leave on most painful area for up to 12 hrs Narcan 4 mg/actuation spray,non-aerosol 4 mg intranasal Q2M PRN (Reason: Opiate Reversal) Rx Instructions: spray 1 dose into ONE nostril; alternate nostrils w each dose until help arrives brimonidine 0.2 % drops 1 drp ophthalmic (eye) BID paroxetine HCl 40 mg tablet 40 mg PO BEDTIME oxycodone-acetaminophen 5-325 mg tablet 1 tab PO QID MDD 4 PRN (Reason: pain (scale score 7-10)) 30 Days Qty: 120 0RF Rx Instructions: Partial Fill upon patient request. Discharge Orders: Discharge Order (Routine); Ordered 08/30/21 Ordered By: Ana Worthy Activity on Discharge: As tolerated Stand Alone Forms: Patient Portal Discharge page Care Plan Goals: see below Health Concerns: possible syncope abnormal brain MRI - no evidence of stroke Plan of Treatment: Call to schedule outpatient follow-up with Neurology for further workup Recommend to start taking baby aspirin. Minimize use of NSAIDs (including meloxicam) to decrease bleeding risk Assessment: See discharge summary Discharge Date/Time: 08/30/21 14:18
[2021-08-30 11:51] LABS: COVID-19 Test Negative (Negative)
--- NOTE | 2021-08-30 12:39 | MHC.CM.PN ---
PT WILL DC HOME TODAY WITH NO SERVICES PT TO ARRANGE TRANSPORT
== END 2021-08-30 14:18 | disposition home or self-care (01) ==
LOC: HO.ED 11:27 → HO.EDOVER 14:29 → HO.S3 08-28 01:06
PROVIDERS: Admitting Provider Nurse Practitioner Acute Care; Emergency Provider Student in an Organized Health Care Education/Training Program; PCP Internal Medicine; Visit Provider Physician Assistant Medical
DX: R55 Syncope and collapse (principal); R90.89 Other abnormal findings on diagnostic imaging of central nervous system; R29.818 Other symptoms and signs involving the nervous system; R11.0 Nausea; G43.909 Migraine, unspecified, not intractable, without status migrainosus; G89.4 Chronic pain syndrome; M25.512 Pain in left shoulder; R29.702 NIHSS score 2; E78.5 Hyperlipidemia, unspecified; I95.9 Hypotension, unspecified; D64.9 Anemia, unspecified; K21.9 Gastro-esophageal reflux disease without esophagitis; J45.909 Unspecified asthma, uncomplicated; F41.8 Other specified anxiety disorders; M19.90 Unspecified osteoarthritis, unspecified site; K76.0 Fatty (change of) liver, not elsewhere classified; F12.90 Cannabis use, unspecified, uncomplicated; Z20.822 Contact with and (suspected) exposure to COVID-19; Z79.899 Other long term (current) drug therapy; Z79.891 Long term (current) use of opiate analgesic; Z98.84 Bariatric surgery status; Z91.041 Radiographic dye allergy status
CPT/HCPCS: 36415; 70450; 70551; 72125; 80048; 80053; 82947; 83735; 84484; 85025; 85610; 87635; 93005; 93306; 94640; 94664; 95816; 96361; 96372; 96374; 99218; 99285; J1650; J2405

== ENCOUNTER 2021-09-04 09:11 | Outpatient (REF) | payer OTHER, SELFPAY ==
[2021-09-04 10:29] LABS: Erythrocyte Sedimentation Rate 7 MM/HR (0-20)
[2021-09-05 07:12] LABS: Syphilis Screen Nonreactive (Nonreactive)
[2021-09-06 12:56] LABS: Lyme Abs Screen <0.90 index
[2021-09-06 17:32] LABS: Antibody to SS-A Antigen <1.0 NEG AI (<1.0 NEG); Antibody to SS-B Antigen <1.0 NEG AI (<1.0 NEG); Cardiolipin IgG Ab <2.0 GPL-U/mL; Cardiolipin IgM Ab 12.9 MPL-U/mL
[2021-09-07 12:36] LABS: IgA 130 mg/dL (47-310); IgG 935 mg/dL (600-1640); IgM 177 mg/dL (50-300)
[2021-09-11 12:02] LABS: DRVVT 1:1 Mix Interpretation Not Indicated; PTT (LAC) Screen 33 sec (<=40)
== END 2021-09-04 09:12 | disposition home or self-care (01) ==
LOC: HO.LAB 09:11
PROVIDERS: PCP Internal Medicine; Visit Provider Psychiatry & Neurology Neurology
DX: G93.49 Other encephalopathy (principal)
CPT/HCPCS: 36415; 82784; 85597; 85613; 85652; 85730; 86147; 86235; 86334; 86617; 86618; 86780

== ENCOUNTER → 2021-09-20 09:35 | Outpatient (BNVA) | payer OTHER, SELFPAY | PROVIDERS: PCP Internal Medicine; Visit Provider Nurse Practitioner Family | DX: M54.12 Radiculopathy, cervical region (principal); G89.4 Chronic pain syndrome; Z98.1 Arthrodesis status; M25.512 Pain in left shoulder; M46.1 Sacroiliitis, not elsewhere classified; M53.3 Sacrococcygeal disorders, not elsewhere classified | CPT/HCPCS: 99212 ==

== ENCOUNTER → 2021-10-15 08:06 | Outpatient (BNVA) | payer OTHER, SELFPAY | PROVIDERS: PCP Internal Medicine; Visit Provider Nurse Practitioner Family | DX: Z51.81 Encounter for therapeutic drug level monitoring (principal); F11.20 Opioid dependence, uncomplicated; M25.512 Pain in left shoulder; M46.1 Sacroiliitis, not elsewhere classified; M53.3 Sacrococcygeal disorders, not elsewhere classified; G89.29 Other chronic pain; Z98.1 Arthrodesis status | CPT/HCPCS: 99212 ==

== ENCOUNTER 2021-10-30 07:25 | Outpatient (REF) | payer OTHER, SELFPAY | END 2021-10-30 07:26 | disposition home or self-care (01) | LOC: HO.RADIR 07:25 | PROVIDERS: Visit Provider Anesthesiology | DX: M19.012 Primary osteoarthritis, left shoulder (principal) | CPT/HCPCS: 20610; J2795; J3300 ==

== ENCOUNTER 2021-11-16 12:04 | Day surgery (SDC) | payer OTHER, SELFPAY ==
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
--- NOTE | ~2021-11-16 | FL_ITS ---
EXAMINATION: XR FLUOROSCOPY WITH IMAGES CLINICAL INFORMATION: SI joint pain. Right SI joint injection. COMPARISON: Fluoroscopic spot views 12/08/2020 TECHNIQUE: Fluoroscopy performed by Dr. Arie Patricia. Fluoroscopy time: 0.1 minutes. Cumulative Dose: 2.04 mGy. DAP: 0.557 Gycm2. Images: 1. FINDINGS: Spinal needle overlies mid right SI joint. There is contrast in the periarticular soft tissues with probable early intra-articular contrast. FL/FL guidance in OR IMPRESSION: Fluoroscopy for pain management procedure.
[2021-11-16] MEDS: Lactated Ringers 1,000 ML 100 ML IVCONT (13:07)
[2021-11-16 13:27] VITALS: BMI 21.2
[2021-11-16 13:28] VITALS: BP 148/52; PULSE 59; RESP 18; TEMP 36.6; O2SAT 98
--- NOTE | 2021-11-16 14:34 | PC.NURSE ---
author witnessed that doctor signed right side of lower back in agreeance with patient, consent and documentation.
--- NOTE | 2021-11-16 14:34 | MHC.SHP ---
Pre-Procedural Eval Section A Date of Service: 11/16/21 The patient is an INPATIENT: No Changes since office visit: Yes Patient answered all questions The History & Physical has been completed within 30 days and I have reviewed it.: No Section B Chief Complaint: Right sacroikkiac joint injection wih steroids Details of Present Illness: Right sacroiliac injection with steroids Relevant Family History (Specify if Yes): No Relevant Social History: None Present Medications: see Short Stay Collaborative assessment Medical History: No relevant PMH History of Previous Operations: No relevant previous surgery Allergies: Allergies Allergy/AdvReac Type Severity Reaction Status Date / Time Iodinated Contrast Media Allergy Intermediate HIVES Verified 11/13/21 10:39 [Iodinated Contrast Media - IV Dye] ketorolac [From Toradol] Allergy Intermediate localized Verified 11/13/21 10:39 redness/swelling Review of Systems Sugical H&P ROS: Negative: Constitution, Cardiovascular, Respiratory, Neurological, Psychiatric, Hem-Onc, Allergic/Immunologic, Gastrointestinal, Genitourinary, Musculoskeletal, Integumentary, Endocrine and Eyes/Ears/Nose/Throat Exam Surgical H&P Exam: Normal: HEENT, Normal: Heart, Normal: Lungs, Normal: Extremities, Normal: Abdomen, Normal: Skin and Normal: Neurological Plan Diagnosis/Plan: Unchanged I have reviewed the history and physical and performed a pertinent physical examination on my patient.I will perform Right sacroiliac joint steroid injection.
[2021-11-16 15:04] VITALS: BP 123/62; PULSE 59; RESP 16; TEMP 37.1; O2SAT 100
--- NOTE | 2021-11-16 15:06 | P.BOP_ITS ---
Brief Operative Note Date of Service: 11/16/21 Pre-op diagnosis: sacroillitis Post-op diagnosis: same Procedure: right si joint injection Implants: none Surgeon: Arie Patricia MD Anesthesia: MAC Was an Diversional Therapist'S Assistant used for this Procedure?: No Estimated blood loss (mL): 0 Condition: stable Disposition: PACU
--- NOTE | 2021-11-16 15:09 | W.PM.OPN ---
Operative Note Operative Note Date of Service: 11/16/21 Narrative: Right therapeutic sacroiliac joint injection Informed consent was explained thoroughly to the patient.? All questions about benefits and risks for the procedure were answered. ? Patient came to the operating room and was positioned prone on the operating table with the pillow under her pelvis. ASA monitors were applied and the patient was sedated. ? ? Time out was performed delineating name and of the patient, site and side of the procedure, nature of the procedure and potential patient?s risks. The lower back of the patient and upper buttocks was prepped with ChloraPrep prepped and draped with sterile utility drapes.? C-arm was brought over the operating field and square picture of patient's pelvis was demonstrated on the screen.? For the right joint tilting C-arm contralateral to the site of the joint the posterior joint silhouette was delineated on the screen. Skin projection of the joint was chosen as a target of the injection and it was injected ?slightly medial to the location of the joint with 25 gauge needle using local lidocaine 2% without epinephrine. ? After that 22 gauge 3 and 1/2 inch needle was driven to the joint silhouette in tunnel vision fashion.? When needle entered the joint capsule injection of the gadavist contrast was performed demonstrating initially intravascular contrast spread, the needle was repositioned and entered to the joint capsule more caudal position where. intra-articular spread of the contrast was detected.? After that 4 cc. of ropivacaine 0.5% was injectedmixed with kenalog 40 mg into the joint. Upon completion of the injections the needle was removed and sterile dressing was applied.? Upon completion of the injection patient was? taken outside of the operating room to the recovery room where recovered uneventfully.?
[2021-11-16 15:19] VITALS: BP 146/60; PULSE 61; RESP 16; TEMP 36.9; O2SAT 98
--- NOTE | 2021-11-16 15:49 | HO.POSTANES ---
Post Anesthesia Evaluation Post Anesthesia Evaluation Vital Signs: Vital Signs Temp Pulse Resp BP Pulse Ox O2 Del Method 11/16/21 15:19 98.5 F 61 16 146/60 H 98 Room Air 11/16/21 15:19 98.5 F 61 16 146/60 H 98 Room Air 11/16/21 15:04 98.7 F 59 16 123/62 100 Room Air 11/16/21 13:28 97.9 F 59 18 148/52 H 98 Room Air Anesthesia: Monitored Mental Status: Awake Pain Control: Satisfactory Nausea/Vomiting: None Hydration: Adequate Anesthesia-Related Issues: No Anes. Related Issues
== END 2021-11-16 15:35 | disposition home or self-care (01) ==
PROVIDERS: PCP Internal Medicine; Visit Provider Anesthesiology
PROC: 3E0U33Z Introduction of Anti-inflammatory into Joints, Percutaneous Approach (ICD-10-PCS; CPT 27096; principal; 2021-11-16 13:50)
DX: M46.1 Sacroiliitis, not elsewhere classified (principal); M53.3 Sacrococcygeal disorders, not elsewhere classified; J45.909 Unspecified asthma, uncomplicated; Z79.51 Long term (current) use of inhaled steroids; Z79.899 Other long term (current) drug therapy; Z91.041 Radiographic dye allergy status; Z88.8 Allergy status to other drugs, medicaments and biological substances; Z87.891 Personal history of nicotine dependence
CPT/HCPCS: G0260; J2250; J3300

== ENCOUNTER 2021-11-19 08:57 | Outpatient (REF) | payer OTHER, SELFPAY ==
[2021-11-19 09:18] LABS: MANUAL DIFF FLAG NO
[2021-11-19 09:35] LABS: Basophils Percent Auto 0.6 % (0-2); Eosinophils Percent Auto 0.7 % (0-4); Hematocrit 36.6 % (37.0-47.0); Hemoglobin 12.2 g/dl (12.0-16.0); Imm Gran Abs Auto 0.02 X10*3/uL (0.00-0.03); Imm Gran Pct Auto 0.4 % (0.0-0.4); Lymphocytes Absolute Auto 1.4 X10*3/uL (1.2-4.9); Lymphocytes Percent Auto 25.6 % (20-40); Mean Corpuscular HGB Conc 33.3 g/dl (31.0-35.0); Mean Corpuscular Hemoglobin 32.1 pg (27.0-33.0); Mean Corpuscular Volume 96.3 fL (80.0-98.0); Mean Platelet Volume 9.4 fL (9.4-12.3); Monocytes Absolute Auto 0.6 X10*3/uL (0.1-1.2); Monocytes Percent Auto 11.5 % (2-11); Neutrophils Absolute Auto 3.3 x10*3/uL (2.0-8.3); Neutrophils Percent Auto 61.2 % (45-73); Platelet Count 251 X10*3/uL (160-400); Red Cell Distribution Width 13.2 % (11.0-16.0); White Blood Count 5.4 X10*3/uL (4.8-10.8)
[2021-11-19 10:10] LABS: Alanine Aminotransferase 23 U/L (0-31); Albumin Level 4.6 g/dL (3.5-5.0); Alkaline Phosphatase 87 U/L (39-117); Anion Gap 14 (12-20); Aspartate Amino Transferase 22 U/L (5-31); Bilirubin Total 0.4 mg/dL (0.0-1.0); Blood Urea Nitrogen 16 mg/dL (9-16); C Reactive Protein < 0.02 mg/dL (< or = 0.50); Calcium 9.5 mg/dL (8.4-10.2); Carbon Dioxide 26 mmol/L (22-29); Chloride 104 mmol/L (96-108); Cholesterol 214 mg/dL; Estimated Glomerular Filt Rate > 60; Glucose Fasting 99 mg/dL (60-99); HDL Cholesterol 96 mg/dL; Iron 132 mcg/dL (30-160); LDL Cholesterol Calculated 101 mg/dl; Percent Iron Saturation 38 % (15-50); Sodium 139 mmol/L (135-145); Total Iron Binding Capacity 351 mcg/dL (228-428); Triglycerides 89 mg/dL; Unsaturated Iron Binding 219 ug/dL
[2021-11-19 10:24] LABS: Ferritin 29 ng/mL (10-250); Insulin 6 uU/mL (2-29); TSH reflex Free T4 0.59 uIU/mL (0.32-4.0); Vitamin D 25-OH Total 35.2 ng/mL (>30)
[2021-11-19 10:34] LABS: Estimated Average Glucose 105 mg/dL; Hemoglobin A1c % 5.3 %
[2021-11-19 10:48] LABS: Folate 18.7 ng/mL (> or = 4.0); Vitamin B12 399 pg/mL (200-900)
[2021-11-21 12:37] LABS: Calcium (PTHI) 9.7 mg/dL (8.6-10.4); PTHI 90 pg/mL (16-77)
[2021-11-22 05:02] LABS: Zinc 82 mcg/dL (60-130)
[2021-11-23 17:36] LABS: Vitamin A 67 mcg/dL (38-98)
[2021-11-24 07:12] LABS: Vitamin B1 9 nmol/L (8-30)
== END 2021-11-19 08:58 | disposition home or self-care (01) ==
LOC: HO.LAB 08:57
PROVIDERS: PCP Internal Medicine; Visit Provider Physician Assistant Surgical
DX: M19.012 Primary osteoarthritis, left shoulder (principal); G89.4 Chronic pain syndrome; M53.3 Sacrococcygeal disorders, not elsewhere classified; Z98.1 Arthrodesis status; E78.5 Hyperlipidemia, unspecified; I95.9 Hypotension, unspecified; Z51.81 Encounter for therapeutic drug level monitoring; Z79.899 Other long term (current) drug therapy
CPT/HCPCS: 36415; 80053; 80061; 82306; 82607; 82728; 82746; 83036; 83525; 83540; 83970; 84425; 84443; 84590; 84630; 85025; 86140; 99212

== ENCOUNTER → 2021-11-30 10:32 | Outpatient (BNVA) | payer OTHER, SELFPAY | PROVIDERS: PCP Internal Medicine; Visit Provider Physician Assistant Surgical | DX: Z90.3 Acquired absence of stomach [part of] (principal) | CPT/HCPCS: 99212 ==

== ENCOUNTER → 2021-12-03 11:23 | Outpatient (BNVA) | payer OTHER, SELFPAY | PROVIDERS: PCP Internal Medicine; Visit Provider Nurse Practitioner Family | DX: M54.12 Radiculopathy, cervical region (principal); M25.512 Pain in left shoulder; M19.012 Primary osteoarthritis, left shoulder; M62.838 Other muscle spasm; G89.4 Chronic pain syndrome; Z98.1 Arthrodesis status | CPT/HCPCS: 99212 ==

== ENCOUNTER 2021-12-05 09:19 | Outpatient (REF) | payer OTHER, SELFPAY ==
--- NOTE | ~2021-12-05 | XR_ITS ---
EXAMINATION: XR CERVICAL SPINE CLINICAL INFORMATION: Radiculopathy, surgical region COMPARISON: 01/31/2021 TECHNIQUE: AP, lateral, odontoid, and bilateral oblique views FINDINGS: 4 mm retrolisthesis C4 on C5. Anterior cervical fusion and discectomy C5-C6 and C6-C7. Normal prevertebral soft tissues. No osseous neuroforaminal narrowing. Lung apices are clear. The dens is intact. The lateral masses are normally positioned. XR/XR cervical spine 4V IMPRESSION: Postoperative changes at C5-C6 and C6-C7.
== END 2021-12-05 09:20 | disposition home or self-care (01) ==
LOC: HO.XRAY 09:19
PROVIDERS: PCP Internal Medicine; Visit Provider Nurse Practitioner Family
DX: M54.12 Radiculopathy, cervical region (principal)
CPT/HCPCS: 72050

== ENCOUNTER → 2021-12-06 08:43 | Outpatient (BNVA) | payer OTHER, SELFPAY | PROVIDERS: PCP Internal Medicine; Visit Provider Orthopaedic Surgery | DX: M25.512 Pain in left shoulder (principal); G89.29 Other chronic pain; Z98.1 Arthrodesis status | CPT/HCPCS: 20610; 99212; J1100 ==

== ENCOUNTER → 2021-12-17 08:41 | Outpatient (BNVA) | payer OTHER, SELFPAY | PROVIDERS: PCP Internal Medicine; Visit Provider Nurse Practitioner Family | DX: Z51.81 Encounter for therapeutic drug level monitoring (principal); F11.20 Opioid dependence, uncomplicated | CPT/HCPCS: 99211 ==

== ENCOUNTER → 2021-12-18 11:02 | Outpatient (BNVA) | payer OTHER, SELFPAY | PROVIDERS: PCP Internal Medicine; Visit Provider Nurse Practitioner Family | DX: M25.512 Pain in left shoulder (principal); M62.838 Other muscle spasm; M54.12 Radiculopathy, cervical region; Z98.1 Arthrodesis status; G89.4 Chronic pain syndrome | CPT/HCPCS: Q3014 ==

== ENCOUNTER → 2022-01-17 08:42 | Outpatient (BNVA) | payer OTHER, SELFPAY | PROVIDERS: PCP Internal Medicine; Visit Provider Nurse Practitioner Family | DX: Z51.81 Encounter for therapeutic drug level monitoring (principal); F11.20 Opioid dependence, uncomplicated; M62.838 Other muscle spasm; M25.562 Pain in left knee; M79.662 Pain in left lower leg; M46.1 Sacroiliitis, not elsewhere classified; M53.3 Sacrococcygeal disorders, not elsewhere classified; M54.2 Cervicalgia; G89.4 Chronic pain syndrome; Z98.1 Arthrodesis status | CPT/HCPCS: 99212 ==

== ENCOUNTER 2022-01-18 08:41 | Outpatient (REF) | payer OTHER, SELFPAY ==
--- NOTE | ~2022-01-18 | XR_ITS ---
EXAMINATION: XR KNEE, LEFT CLINICAL INFORMATION: Left knee pain. COMPARISON: None TECHNIQUE: Four views of the left knee. FINDINGS: Mild tricompartmental degenerative joint changes are seen. Minimal femoral-tibial chondrocalcinosis is seen. There is no acute fracture, dislocation or joint effusion. The soft tissues are unremarkable. XR/XR knee LT 3V IMPRESSION: Mild degenerative changes. No acute abnormality.
== END 2022-01-18 08:42 | disposition home or self-care (01) ==
LOC: HO.XRAY 08:41
PROVIDERS: PCP Internal Medicine; Visit Provider Nurse Practitioner Family
DX: M25.562 Pain in left knee (principal)
CPT/HCPCS: 73562

== ENCOUNTER → 2022-02-21 08:03 | Outpatient (BNVA) | payer OTHER, SELFPAY | PROVIDERS: PCP Internal Medicine; Visit Provider Nurse Practitioner Family | DX: Z79.891 Long term (current) use of opiate analgesic (principal) | CPT/HCPCS: 99211 ==

== ENCOUNTER 2022-02-24 12:44 | Emergency (ER) | payer OTHER, SELFPAY ==
--- NOTE | ~2022-02-24 | CT_ITS ---
EXAMINATION: CT CERVICAL SPINE WITHOUT CONTRAST; UNENHANCED CT OF THE HEAD. CLINICAL INFORMATION: Head injury. Fall. COMPARISON: None TECHNIQUE: Routine unenhanced CT of the head with multiple coronal and sagittal reformatted images; routine unenhanced CT of the cervical spine with multiple coronal and sagittal reformatted images. This CT examination was performed using dose optimization techniques as appropriate, variously including the following: *Automated exposure control *Adjustment of mA and/or kV according to patient size (this includes techniques or standardized protocols for targeted exams where dose is matched to indication/reason for exam; i.e. extremities or head) *Use of iterative reconstruction technique DLP: 907 mGy-cm FINDINGS: CT head: No intracranial hemorrhage, tumors or acute infarcts noted. The ventricles and sulci are normal in size and configuration. No abnormal extra-axial fluid collections or focal parenchymal lesions of the brain. Mild segmental calcific atherosclerosis of the cavernous portions of the internal carotid arteries. Normal appearance of the orbits and globes. No significant opacification of the visualized paranasal sinuses, mastoid air cells and middle ear cavities. CT cervical spine: No fractures or acute appearing subluxations noted. Zero profile interbody devices are present at C5-C6 and C6-C7. No acute appearing subluxations or fractures noted. Moderate intervertebral disc space narrowing and mild posterior endplate osteophytosis at C5. No prevertebral fluid collections or soft tissue inflammatory changes. Moderate left and mild right carotid bulb calcific atherosclerosis. CT/CT cervical spine wo IV con IMPRESSION: CT head: *No acute intracranial abnormalities. CT cervical spine: *No acute abnormalities. *Multilevel chronic fibrosis. *Status post C5-C6 and C6-C7 discectomies and interbody fusion.
--- NOTE | 2022-02-24 13:14 | ED.HEATRA ---
HPI - Head Injury General Chief complaint: Head Injury <TALISHA Hensley - Last Filed: 02/24/22 13:20> Stated complaint: head inj 02/24/22 <TALISHA Hensley - Last Filed: 02/24/22 13:20> Time Seen by Provider: 02/24/22 17:01 <TALISHA Hensley - Last Filed: 02/24/22 13:20> Source: patient <Hoa Serna NP - Last Filed: 02/24/22 18:28> Mode of arrival: ambulatory <Hoa Serna NP - Last Filed: 02/24/22 18:28> Limitations: no limitations <Hoa Serna NP - Last Filed: 02/24/22 18:28> History of Present Illness HPI Narrative: 61-year-old female with past medical history of low cervical radiculopathy, hypotension, asthma, anxiety, and chronic pain presents to the emergency department after sustaining a head injury with laceration after she was hit in the head with an electric screwdriver while attempting to hang shelves with her . She reports she fell to the floor and passed out after being hit with a screwdriver. She reports a mild headache here in the emergency department. She denies any confusion, vision changes, gait changes, neck pain, nausea, vomiting, numbness or weakness in any extremity. <Hoa Serna NP - Last Filed: 02/24/22 18:28> MD Complaint: head injury <Hoa Serna NP - Last Filed: 02/24/22 18:28> Onset (ago): hour(s) <Hoa Serna NP - Last Filed: 02/24/22 18:28> Mechanism of Injury: other <Hoa Serna NP - Last Filed: 02/24/22 18:28> Place: home <Hoa Serna NP - Last Filed: 02/24/22 18:28> Loss of Consciousness: yes <Hoa Serna NP - Last Filed: 02/24/22 18:28> Location of injury: frontal <Hoa Serna NP - Last Filed: 02/24/22 18:28> Severity: mild <Hoa Serna NP - Last Filed: 02/24/22 18:28> Severity scale (1-10): 4 <Hoa Serna NP - Last Filed: 02/24/22 18:28> Quality: dull and aching <Hoa Serna NP - Last Filed: 02/24/22 18:28> Radiation: none <Hoa Serna NP - Last Filed: 02/24/22 18:28> Other Injuries: laceration <Hoa Serna NP - Last Filed: 02/24/22 18:28> Context: on aspirin <Hoa Serna NP - Last Filed: 02/24/22 18:28> Associated symptoms: denies other symptoms <Hoa Serna NP - Last Filed: 02/24/22 18:28> Related Data Home medications: Home Medications Medication Instructions Recorded Confirmed clonazepam 1 mg tablet 1 mg PO TID 11/20/19 02/21/22 quetiapine 100 mg tablet 200 mg PO BEDTIME 03/14/20 02/21/22 quetiapine 25 mg tablet 25 mg PO DAILY 01/16/21 02/21/22 hxttorso-movphzfc-zqvv 45 mg-folic cap PO 01/17/21 02/21/22 acid 800 mcg-vit K 120 mcg capsule (Bariatric Multivitamins) naloxone 4 mg/actuation nasal 4 mg intranasal Q2M PRN Opiate 02/15/21 02/21/22 spray (Narcan) Reversal brimonidine 0.2 % eye drops 1 drp ophthalmic (eye) BID 04/12/21 02/21/22 paroxetine HCl 40 mg tablet 40 mg PO BEDTIME 08/23/21 02/21/22 paroxetine HCl 10 mg tablet 1 tab PO BEDTIME 08/27/21 02/21/22 fludrocortisone 0.1 mg tablet 0.1 mg PO DAILY 09/20/21 02/21/22 topiramate 25 mg tablet 25 mg PO DAILY 01/17/22 02/21/22 Previous Rx's Medication Instructions Recorded fluticasone furoate 200 1 inh inhalation DAILY #60 ea 05/30/20 mcg-vilanterol 25 mcg/dose inhalation powder (Breo Ellipta) gabapentin 600 mg tablet 600 mg PO BID #180 tabs 02/07/21 lidocaine 5 % topical patch 1 patch topical DAILY 30 days #30 02/15/21 ea fluticasone propionate 50 1 spray intranasal DAILY #16 grams 06/25/21 mcg/actuation nasal spray,suspension aspirin 81 mg capsule 81 mg PO DAILY 30 days #30 caps 08/30/21 rosuvastatin 10 mg tablet (Crestor) 10 mg PO DAILY #90 tabs 09/06/21 diclofenac sodium 1 % topical gel 4 g topical QID PRN pain #100 grams 09/25/21 methocarbamol 750 mg tablet 750 mg PO Q8H PRN muscle spasm 30 01/17/22 days #90 tabs albuterol sulfate 90 mcg/actuation 2 puff inhalation Q4-6H PRN 01/21/22 aerosol inhaler (ProAir HFA) shortness of breath or wheezing #8.5 grams hawfkozhtz-pkazqpddouppn-gedghmct 1 tab PO Q6H PRN pain #90 tabs 01/21/22 50 mg-325 mg-40 mg tablet oxycodone-acetaminophen 5 mg-325 1 tab PO QID PRN pain (scale score 02/21/22 mg tablet 7-10) 30 days #120 tabs <TALISHA Hensley - Last Filed: 02/24/22 13:20> Allergies/Adverse reactions: Allergies Allergy/AdvReac Type Severity Reaction Status Date / Time Iodinated Contrast Media Allergy Intermediate HIVES Verified 02/24/22 13:18 [Iodinated Contrast Media - IV Dye] ketorolac [From Toradol] Allergy Intermediate localized Verified 02/24/22 13:18 redness/swelling <TALISHA Hensley - Last Filed: 02/24/22 13:20> Review of Systems Review of Systems: In addition to documented HPI above, the additional ROS was obtained: Constitutional: No Fever, No Chills ENT/Mouth: No Ear Pain, No Nasal Congestion, No Sinus Pain, No Hoarseness, No sore throat, No Rhinorrhea, No Swallowing Difficulty Cardiovascular: No Chest Pain, No SOB Respiratory: No Cough, No Sputum, No Wheezing Gastrointestinal: No Nausea, No Vomiting, No Diarrhea, No Constipation, No Abdominal pain Genitourinary: No Dysuria, No Urinary Frequency, No Hematuria, No Urinary Incontinence/retention, No Urgency, No Flank Pain Musculoskeletal: No joint pain, No Myalgias, No Joint Swelling Skin: No Skin Lesions, No rash Neuro: No Weakness, No Numbness, No Paresthesias <Hoa Serna NP - Last Filed: 02/24/22 18:28> Yes all other systems are reviewed and are negative <Hoa Serna NP - Last Filed: 02/24/22 18:28> [facility] Past Medical History Attestation statement: The following information was validated with the patient. <Hoa Serna NP - Last Filed: 02/24/22 18:28> Source: old records reviewed <Hoa Serna NP - Last Filed: 02/24/22 18:28> Medical History: Medical History Abscess or cellulitis of knee Allergic rhinitis Anemia Anxiety with depression Arthritis Asthma Back pain Bunion of left foot Calf pain Cellulitis Cervical radiculopathy Cervical spondylosis with radiculopathy Cervical strain Chronic sinusitis Colon polyps COVID-19 vaccine administered Depression Fatty liver GERD (gastroesophageal reflux disease) Hematoma following procedure Herpes Hyperlipidemia Hypotension Incisional pain Labral tear of right hip joint Malabsorption due to intolerance, not elsewhere classified Migraines Neck pain Neutropenia Postconcussion syndrome Postlaminectomy syndrome Postoperative bleeding from incision Sacroiliitis Seroma due to trauma Skin laxity Spinal stenosis Syncope <TALISHA Hensley - Last Filed: 02/24/22 13:20> Surgical History: Surgical History H/O colonoscopy H/O endoscopy H/O laminectomy History of appendectomy History of endometrial ablation History of hip surgery Hx of abdominal surgery S/P bilateral foot surgery S/P laparoscopic sleeve gastrectomy S/P laparoscopic sleeve gastrectomy S/P panniculectomy S/P panniculectomy S/P plastic surgery S/P tonsillectomy Status post bariatric surgery <TALISHA Hensley - Last Filed: 02/24/22 13:20> Family History Family History: Family History Father No problems noted. Mother Cervical spine tumor Brother No problems noted. Brother No problems noted. Brother No problems noted. Brother No problems noted. Sister Mental health disorder Son No problems noted. Daughter No problems noted. <TALISHA Hensley - Last Filed: 02/24/22 13:20> Social History Social History: Social History Household Members: Spouse Housing: House Are you a primary career development facilitator to a significant other at home: No Do you presently have visiting nurse or other home services: No Alcohol intake: never Patient Tobacco Use Status: Former Tobacco user Second Hand Smoke Exposure: No Substance Use Type: Marijuana Advance Directives: Yes Advance Directives Information Provided: No Advance Directives on File: No Advance Directives Date on File: 08/28/21 service: No Current occupational status: disabled Cognitive needs: No Hearing needs: No Vision needs: No <TALISHA Hensley - Last Filed: 02/24/22 13:20> Physical Exam Vital Signs: Vital Signs: Last Vital Signs Temp 97.5 F 02/24/22 13:16 Pulse 79 02/24/22 13:16 Resp 16 02/24/22 13:16 BP 126/52 L 02/24/22 13:16 Pulse Ox 98 02/24/22 13:16 O2 Del Method 02/24/22 13:16 BMI result Body Mass Index 21.6 <TALISHA Hensley - Last Filed: 02/24/22 13:20> Vital Signs: Last Vital Signs Temp 97.5 F 02/24/22 13:16 Pulse 79 02/24/22 13:16 Resp 16 02/24/22 13:16 BP 126/52 L 02/24/22 13:16 Pulse Ox 98 02/24/22 13:16 O2 Del Method 02/24/22 13:16 BMI result Body Mass Index 21.6 <Hoa Serna NP - Last Filed: 02/24/22 18:28> Nursing notes and vital signs reviewed. GENERAL APPEARANCE: A&0 x 4, generally well appearing, no acute distress HENMT: Normal to inspection, face symmetrical. Normal external ears, nose, and oropharynx clear. 1 cm laceration left forehead. EYE: PERRLA, EOM intact, structures appear normal NECK: Supple without lymphadenopathy. No stiffness or restricted ROM. CHEST: Normal to inspection HEART: Normal rate and regular rhythm, normal S1/S2, no M/R/G LUNGS: LS CTA, moving air well. Able to speak in complete sentences. No crackles, wheezes, or rhonchi auscultated ABDOMEN: Soft, nontender, nondistended. Normal bowel sounds noted BACK: No CVAT, no obvious deformity EXTREMITIES: Moving all extremities without difficulty. No cyanosis, clubbing, or edema. Normal capillary refill. NEUROLOGICAL: Alert and oriented, moving all 4 extremities with equal strength. CN not formally tested but appearing grossly intact. Observed to ambulate with normal gait. 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 Pt also reports a laceration to the left aspect of her scalp/forehead. UTD on tetanus. Denies any other injuries complaints or concerns at this time. Plan: CT scan of brain/cervical spine ordered at this time. Patient will be evaluated [facility]. <TALISHA Hensley - Last Filed: 02/24/22 13:20> Medications Administered Discontinued Medications Generic Name Dose Route Start Last Admin Trade Name Freq PRN Reason Stop Dose Admin Acetaminophen 325 mg 02/24/22 17:17 02/24/22 17:36 Acetaminophen 325 Mg Tablet PO 02/24/22 17:18 325 mg ONCE ONE Administration Acetaminophen/Butalbital/Caffeine 1 tab 02/24/22 17:17 02/24/22 17:35 Butalb/Acetamin/Caff 50/325/40 Tablet PO 02/24/22 17:18 1 tab ONCE ONE Administration Lidocaine HCl 2 ml 02/24/22 17:28 02/24/22 17:36 Lidocaine Hcl 1 % Mpf 2 Ml Vial INFILTRATI 02/24/22 17:29 2 ml ONCE ONE Administration <TALISHA Hensley - Last Filed: 02/24/22 13:20> Medications Administered Discontinued Medications Generic Name Dose Route Start Last Admin Trade Name Jostin PRN Reason Stop Dose Admin Acetaminophen 325 mg 02/24/22 17:17 02/24/22 17:36 Acetaminophen 325 Mg Tablet PO 02/24/22 17:18 325 mg ONCE ONE Administration Acetaminophen/Butalbital/Caffeine 1 tab 02/24/22 17:17 02/24/22 17:35 Butalb/Acetamin/Caff 50/325/40 Tablet PO 02/24/22 17:18 1 tab ONCE ONE Administration Lidocaine HCl 2 ml 02/24/22 17:28 02/24/22 17:36 Lidocaine Hcl 1 % Mpf 2 Ml Vial INFILTRATI 02/24/22 17:29 2 ml ONCE ONE Administration <Hoa Serna NP - Last Filed: 02/24/22 18:28> Medical Decision Making Medical Decision Making MDM Narrative: 61-year-old female with past medical history of low cervical radiculopathy, hypotension, asthma, anxiety, and chronic pain presents to the emergency department after sustaining a head injury with laceration after she was hit in the head with an electric screwdriver while attempting to hang shelves with her . She reports she fell to the floor and passed out after being hit with an electric screwdriver. She reports a mild headache here in the emergency department. 1 cm linear laceration noted on left forehead with deep structures intact. Laceration anesthetized with 1 mL 1% lidocaine and closed with 3 sutures patient tolerated without incident. CT head, cervical spine showing no acute intracranial or cervical spine abnormalities, multilevel chronic fibrosis noted, s/p C5-C6 and C6-C7 discectomies with interbody fusion. History, physical, and diagnostics consistent with closed head injury. Low suspicion for concussion, intracranial hemorrhage. Patient is safe for discharge at this time with plan to in a discomfort with [id number] Tylenol and/or ibuprofen dosing as per packaging. HPI, PE, diagnostics, and plan discussed with patient and family with no unanswered questions at this time. Educated that sutures be to be removed in 5 days either at the PCP office, and Urgent Care, or this emergency department. Patient educated to return to the emergency department with new, worsening, or concerning emergent symptoms. Recommended to follow-up with her primary care provider for further treatment and management. *Refer to Course for additional information on consultations, diagnostic interpretation, consultations, emergency department stay, conversations with patient and family, shared decision making with patient, and more information on medical decision making* <Hoa Serna NP - Last Filed: 02/24/22 18:28> Lab Data MDM Lab Attestation statement: I reviewed the patient's lab results. <Hoa Serna NP - Last Filed: 02/24/22 18:28> Result Diagrams: 02/24/22 14:53 02/24/22 14:53 <TALISHA Hensley - Last Filed: 02/24/22 13:20> Labs: Lab Results 02/24/22 02/24/22 02/24/22 Range/Units 14:53 14:53 14:53 WBC 5.4 (4.8-10.8) X10*3/uL RBC 3.80 L (4.20-5.50) X10*6/uL Hgb 12.1 (12.0-16.0) g/dl Hct 35.8 L (37.0-47.0) % MCV 94.2 (80.0-98.0) fL MCH 31.8 (27.0-33.0) pg MCHC 33.8 (31.0-35.0) g/dl RDW 12.2 (11.0-16.0) % Plt Count 211 (160-400) X10*3/uL MPV 9.2 L (9.4-12.3) fL Immature Gran % (Auto) 0.2 (0.0-0.4) % Neut % (Auto) 51.5 (45-73) % Lymph % (Auto) 35.8 (20-40) % [place] % (Auto) 9.9 (2-11) % Eos % (Auto) 1.9 (0-4) % Baso % (Auto) 0.7 (0-2) % Lymph # (Auto) 1.9 (1.2-4.9) X10*3/uL [place] # (Auto) 0.5 (0.1-1.2) X10*3/uL Eos # (Auto) 0.1 (0.0-0.4) X10*3/uL Baso # (Auto) 0.0 (0.0-0.2) X10*3/uL Abs Immat Gran (auto) 0.01 (0.00-0.03) X10*3/uL Absolute Neuts (auto) 2.8 (2.0-8.3) x10*3/uL Absolute Nucleated RBC 0.000 (0.0-0.012) X10*3/uL Nucleated RBC % (auto) 0.0 (0.0-0.2) /100WBC PT 10.6 (10.0-13.1) SEC INR 0.9 (0.9-1.1) Sodium 142 (135-145) mmol/L Potassium 4.3 (3.3-5.1) mmol/L Chloride 108 (96-108) mmol/L Carbon Dioxide 26 (22-29) mmol/L Anion Gap 12 (12-20) BUN 22 H (9-16) mg/dL Creatinine 0.71 (0.5-1.4) mg/dL Estim Creat Clear Calc 81.9 Estimated GFR > 60 Random Glucose 93 (60-115) mg/dL Calcium 9.2 (8.4-10.2) mg/dL Magnesium 2.1 (1.6-2.6) mg/dL Total Bilirubin 0.3 (0.0-1.0) mg/dL AST 23 (5-31) U/L ALT 20 (0-31) U/L Alkaline Phosphatase 81 (39-117) U/L Total Creatine Kinase 72 (26-140) U/L Total Protein 6.6 (6.5-8.0) g/dL Albumin 4.4 (3.5-5.0) g/dL <TALISHA Hensley - Last Filed: 02/24/22 13:20> Lab Results 02/24/22 02/24/22 02/24/22 Range/Units 14:53 14:53 14:53 WBC 5.4 (4.8-10.8) X10*3/uL RBC 3.80 L (4.20-5.50) X10*6/uL Hgb 12.1 (12.0-16.0) g/dl Hct 35.8 L (37.0-47.0) % MCV 94.2 (80.0-98.0) fL MCH 31.8 (27.0-33.0) pg MCHC 33.8 (31.0-35.0) g/dl RDW 12.2 (11.0-16.0) % Plt Count 211 (160-400) X10*3/uL MPV 9.2 L (9.4-12.3) fL Immature Gran % (Auto) 0.2 (0.0-0.4) % Neut % (Auto) 51.5 (45-73) % Lymph % (Auto) 35.8 (20-40) % [place] % (Auto) 9.9 (2-11) % Eos % (Auto) 1.9 (0-4) % Baso % (Auto) 0.7 (0-2) % Lymph # (Auto) 1.9 (1.2-4.9) X10*3/uL [place] # (Auto) 0.5 (0.1-1.2) X10*3/uL Eos # (Auto) 0.1 (0.0-0.4) X10*3/uL Baso # (Auto) 0.0 (0.0-0.2) X10*3/uL Abs Immat Gran (auto) 0.01 (0.00-0.03) X10*3/uL Absolute Neuts (auto) 2.8 (2.0-8.3) x10*3/uL Absolute Nucleated RBC 0.000 (0.0-0.012) X10*3/uL Nucleated RBC % (auto) 0.0 (0.0-0.2) /100WBC PT 10.6 (10.0-13.1) SEC INR 0.9 (0.9-1.1) Sodium 142 (135-145) mmol/L Potassium 4.3 (3.3-5.1) mmol/L Chloride 108 (96-108) mmol/L Carbon Dioxide 26 (22-29) mmol/L Anion Gap 12 (12-20) BUN 22 H (9-16) mg/dL Creatinine 0.71 (0.5-1.4) mg/dL Estim Creat Clear Calc 81.9 Estimated GFR > 60 Random Glucose 93 (60-115) mg/dL Calcium 9.2 (8.4-10.2) mg/dL Magnesium 2.1 (1.6-2.6) mg/dL Total Bilirubin 0.3 (0.0-1.0) mg/dL AST 23 (5-31) U/L ALT 20 (0-31) U/L Alkaline Phosphatase 81 (39-117) U/L Total Creatine Kinase 72 (26-140) U/L Total Protein 6.6 (6.5-8.0) g/dL Albumin 4.4 (3.5-5.0) g/dL <Hoa Serna NP - Last Filed: 02/24/22 18:28> Radiology Impression Discussion of test interpretation with radiology: I have reviewed the radiologist's reading. <Hoa Serna NP - Last Filed: 02/24/22 18:28> Radiologist Impression: I have independently reviewed the CT cervical spine no intracranial or cervical spine acute abnormalities. EXAMINATION: CT CERVICAL SPINE WITHOUT CONTRAST; UNENHANCED CT OF THE HEAD. CLINICAL INFORMATION: Head injury. Fall.? COMPARISON: None? TECHNIQUE: Routine unenhanced CT of the head with multiple coronal and sagittal reformatted images; routine unenhanced CT of the cervical spine with multiple coronal and sagittal reformatted images. This CT examination was performed using dose optimization techniques as appropriate, variously including the following: *Automated exposure control *Adjustment of mA and/or kV according to patient size (this includes techniques or standardized protocols for targeted exams where dose is matched to indication/reason for exam; i.e. extremities or head) *Use of iterative reconstruction technique DLP: 907 mGy-cm FINDINGS: CT head: No intracranial hemorrhage, tumors or acute infarcts noted. The ventricles and sulci are normal in size and configuration. No abnormal extra-axial fluid collections or focal parenchymal lesions of the brain. Mild segmental calcific atherosclerosis of the cavernous portions of the internal carotid arteries. Normal appearance of the orbits and globes. No significant opacification of the visualized paranasal sinuses, mastoid air cells and middle ear cavities. CT cervical spine: No fractures or acute appearing subluxations noted. Zero profile interbody devices are present at C5-C6 and C6-C7. No acute appearing subluxations or fractures noted. Moderate intervertebral disc space narrowing and mild posterior endplate osteophytosis at C5. No prevertebral fluid collections or soft tissue inflammatory changes. Moderate left and mild right carotid bulb calcific atherosclerosis.? CT/CT head/brain wo IV con IMPRESSION: CT head: *No acute intracranial abnormalities. ? CT cervical spine: *No acute abnormalities. *Multilevel chronic fibrosis. *Status post C5-C6 and C6-C7 discectomies and interbody fusion. ? Dictated By: Ugo Draper MD Signed By: <Electronically signed by Ugo Draper MD in [place]> 02/24/22 1615 DD/ 1502 TD/TT:? Bromination Equipment Operator: EF <Hoa Serna NP - Last Filed: 02/24/22 18:28> Procedures Laceration left forehead: Site: other <Hoa Serna NP - Last Filed: 02/24/22 18:28> Side (If applicable): left <Hoa Serna NP - Last Filed: 02/24/22 18:28> Size (cm): 1 <Hoa Serna NP - Last Filed: 02/24/22 18:28> Description: linear <Hoa Serna NP - Last Filed: 02/24/22 18:28> Depth: simple, single layer <Hoa Serna NP - Last Filed: 02/24/22 18:28> Local Anesthetic: lidocaine 1% <Hoa Serna NP - Last Filed: 02/24/22 18:28> Amount of anesthesia used (mL): 1 <Hoa Serna NP - Last Filed: 02/24/22 18:28> Pre-repair: irrigated extensively and deep structures intact <Hoa Serna NP - Last Filed: 02/24/22 18:28> Skin layer closed with: other <Hoa Serna NP - Last Filed: 02/24/22 18:28> Size (cm): 6-0 <Hoa Serna NP - Last Filed: 02/24/22 18:28> Number of sutures: 3 <Hoa Serna NP - Last Filed: 02/24/22 18:28> Technique: simple, interrupted <Hoa Serna NP - Last Filed: 02/24/22 18:28> Discharge Plan Discharge Clinical Impression: Closed head injury <TALISHA Hensley - Last Filed: 02/24/22 13:20> Patient Disposition: Home, Self-Care <TALISHA Hensley - Last Filed: 02/24/22 13:20> Instructions: Care For Your Stitches (ED), Head Injury (ED) <TALISHA Hensley - Last Filed: 02/24/22 13:20> Additional Instructions: You have any left forehead laceration which was closed with sutures. Please present to your primary care provider, and Urgent Care, or this emergency department for removal of your sutures in 5 days. Please return to the emergency department with new, worsening, or concerning emergent symptoms. Recommended follow-up the primary care provider for further treatment and management. <TALISHA Hensley - Last Filed: 02/24/22 13:20> Prescriptions: No Action Breo Ellipta 200-25 mcg/dose blister with device 1 inh inhalation DAILY Qty: 60 6RF fluticasone propionate 50 mcg/actuation spray,suspension 1 spray intranasal DAILY Qty: 16 0RF Rx Instructions: administer into each nostril diclofenac sodium 1 % gel 4 g topical QID PRN (Reason: pain) Qty: 100 1RF izyilrquyp-dakqnhzdeoqod-foyt 50-325-40 mg tablet 1 tab PO Q6H PRN (Reason: pain) Qty: 90 0RF albuterol sulfate [ProAir HFA] 90 mcg/actuation HFA aerosol inhaler 2 puff inhalation Q4-6H PRN (Reason: shortness of breath or wheezing) Qty: 8.5 6RF oxycodone-acetaminophen 5-325 mg tablet 1 tab PO QID MDD 4 PRN (Reason: pain (scale score 7-10)) 30 Days Qty: 120 0RF Rx Instructions: Partial Fill upon patient request. paroxetine HCl 10 mg tablet 1 tab PO BEDTIME aspirin 81 mg capsule 81 mg PO DAILY 30 Days Qty: 30 0RF gabapentin 600 mg tablet 600 mg PO BID Qty: 180 3RF rosuvastatin [Crestor] 10 mg tablet 10 mg PO DAILY Qty: 90 2RF clonazepam 1 mg tablet 1 mg PO TID quetiapine 100 mg tablet 200 mg PO BEDTIME quetiapine 25 mg tablet 25 mg PO DAILY Bariatric Multivitamins 45 mg iron- 800 mcg-120 mcg capsule PO topiramate 25 mg tablet 25 mg PO DAILY methocarbamol 750 mg tablet 750 mg PO Q8H PRN (Reason: muscle spasm) 30 Days Qty: 90 3RF lidocaine 5 % adhesive patch,medicated 1 patch topical DAILY 30 Days Qty: 30 3RF Rx Instructions: leave on most painful area for up to 12 hrs Narcan 4 mg/actuation spray,non-aerosol 4 mg intranasal Q2M PRN (Reason: Opiate Reversal) Rx Instructions: spray 1 dose into ONE nostril; alternate nostrils w each dose until help arrives brimonidine 0.2 % drops 1 drp ophthalmic (eye) BID paroxetine HCl 40 mg tablet 40 mg PO BEDTIME fludrocortisone 0.1 mg tablet 0.1 mg PO DAILY <TALISHA Hensley - Last Filed: 02/24/22 13:20> Referrals: Corinne Figueroa MD [Primary Care Provider] - <TALISHA Hensley - Last Filed: 02/24/22 13:20> Print Language: Croatian <TALISHA Hensley - Last Filed: 02/24/22 13:20>
[2022-02-24 13:16] VITALS: BP 126/52; PULSE 79; RESP 16; TEMP 36.4; O2SAT 98; BMI 21.6
[2022-02-24 14:59] LABS: MANUAL DIFF FLAG NO
[2022-02-24 15:00] LABS: Basophils Percent Auto 0.7 % (0-2); Eosinophils Absolute Auto 0.1 X10*3/uL (0.0-0.4); Eosinophils Percent Auto 1.9 % (0-4); Hematocrit 35.8 % (37.0-47.0); Hemoglobin 12.1 g/dl (12.0-16.0); Imm Gran Abs Auto 0.01 X10*3/uL (0.00-0.03); Imm Gran Pct Auto 0.2 % (0.0-0.4); Lymphocytes Absolute Auto 1.9 X10*3/uL (1.2-4.9); Lymphocytes Percent Auto 35.8 % (20-40); Mean Corpuscular HGB Conc 33.8 g/dl (31.0-35.0); Mean Corpuscular Hemoglobin 31.8 pg (27.0-33.0); Mean Corpuscular Volume 94.2 fL (80.0-98.0); Mean Platelet Volume 9.2 fL (9.4-12.3); Monocytes Absolute Auto 0.5 X10*3/uL (0.1-1.2); Monocytes Percent Auto 9.9 % (2-11); Neutrophils Absolute Auto 2.8 x10*3/uL (2.0-8.3); Neutrophils Percent Auto 51.5 % (45-73); Platelet Count 211 X10*3/uL (160-400); Red Cell Distribution Width 12.2 % (11.0-16.0); White Blood Count 5.4 X10*3/uL (4.8-10.8)
[2022-02-24 15:07] LABS: INTERNATIONAL NORM RATIO 0.9 (0.9-1.1); Prothrombin Time 10.6 SEC (10.0-13.1)
[2022-02-24 15:17] LABS: Alanine Aminotransferase 20 U/L (0-31); Albumin Level 4.4 g/dL (3.5-5.0); Alkaline Phosphatase 81 U/L (39-117); Anion Gap 12 (12-20); Aspartate Amino Transferase 23 U/L (5-31); Bilirubin Total 0.3 mg/dL (0.0-1.0); Blood Urea Nitrogen 22 mg/dL (9-16); Calcium 9.2 mg/dL (8.4-10.2); Carbon Dioxide 26 mmol/L (22-29); Chloride 108 mmol/L (96-108); Creatinine Clr Calc Pharmacy 81.9; Estimated Glomerular Filt Rate > 60; Glucose Random 93 mg/dL (60-115); Magnesium 2.1 mg/dL (1.6-2.6); Potassium 4.3 mmol/L (3.3-5.1); Sodium 142 mmol/L (135-145); Total Protein 6.6 g/dL (6.5-8.0)
[2022-02-24] MEDS: Butalb/Acetamin/Caff 50/325/40 TABLET 1 TAB PO (17:35)
[2022-02-24] MEDS: Acetaminophen 325 MG TABLET PO (17:36)
[2022-02-24] MEDS: Lidocaine HCl 1 % MPF 2 ML VIAL INFILTRATI (17:36)
== END 2022-02-24 18:11 | disposition home or self-care (01) ==
PROVIDERS: Physician Assistant Medical; Emergency Provider Internal Medicine; PCP Internal Medicine
DX: S09.90XA Unspecified injury of head, initial encounter (principal); R51.9 Headache, unspecified; M54.2 Cervicalgia; Y29.XXXA Contact with blunt object, undetermined intent, initial encounter; Y93.9 Activity, unspecified; Y92.9 Unspecified place or not applicable; Y99.9 Unspecified external cause status; Z79.899 Other long term (current) drug therapy; Z87.891 Personal history of nicotine dependence
CPT/HCPCS: 12011; 36415; 70450; 72125; 80053; 82550; 83735; 85025; 85610; 99283

== ENCOUNTER → 2022-03-04 08:53 | Outpatient (BNVA) | payer OTHER, SELFPAY | PROVIDERS: PCP Internal Medicine; Referring Provider Internal Medicine; Visit Provider Internal Medicine | DX: I95.1 Orthostatic hypotension (principal); Z90.3 Acquired absence of stomach [part of] | CPT/HCPCS: 93005; 99212 ==

== ENCOUNTER → 2022-03-18 08:09 | Outpatient (BNVA) | payer OTHER, SELFPAY | PROVIDERS: PCP Internal Medicine; Visit Provider Dietitian, Registered | DX: Z90.3 Acquired absence of stomach [part of] (principal) | CPT/HCPCS: 97803 ==

== ENCOUNTER 2022-03-23 13:37 | Observation (INO) | payer OTHER, SELFPAY ==
--- NOTE | ~2022-03-23 | MR_ITS ---
EXAMINATION: MR BRAIN WITHOUT CONTRAST CLINICAL INFORMATION: Acute stroke COMPARISON: CT head performed earlier same day TECHNIQUE: MRI of the brain was obtained using routine sequences without contrast. FINDINGS: Artifactually degraded DWI sequence without evidence of acute infarct. No acute intracranial hemorrhage or extra-axial fluid collection. The ventricles and sulci are normal in size and configuration without significant volume loss or hydrocephalus. Multiple patchy T2 hyperintense foci in the subcortical and periventricular white matter, some of which demonstrate a somewhat rounded configuration and are nonspecific and may reflect sequelae of mild chronic microangiopathy however chronic demyelinating disease, sequelae of Lyme disease, and other etiologies are not excluded. Clinical correlation and possible CSF fluid sampling may be pursued as warranted. No mass lesion, mass effect, or herniation pattern. Normal intracranial arterial and dural venous sinus flow voids. Slightly low-lying cerebellar tonsils. Slight asphericity and enlargement of the bilateral globes. The paranasal sinuses and mastoids are well aerated. 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 MR/MR head/brain wo con IMPRESSION: 1. No acute intracranial findings, specifically without evidence of acute infarct. 2. Nonspecific mild supratentorial white matter disease which may reflect mild chronic microangiopathy however chronic demyelinating disease, sequelae of Lyme disease, and other etiologies are not excluded. Clinical correlation and possible CSF fluid sampling may be pursued as warranted.
--- NOTE | ~2022-03-23 | CT_ITS ---
EXAMINATION: CT CERVICAL SPINE WITHOUT CONTRAST CLINICAL INFORMATION: Fall. COMPARISON: Cervical spine CT scan 02/24/2022. TECHNIQUE: Staying Machine Operator images were obtained. CT imaging of the cervical spine was performed without contrast. Data was reformatted into multiplanar images at the acquisition workstation. This CT examination was performed using dose optimization techniques as appropriate, including one or more of the following: Automated exposure control, iterative reconstruction, and adjustment of technique factors (mA and/or kVp) according to patient size (this includes techniques or standardized protocols for targeted exams where dose is matched to indication/reason for exam). Fleischner Society criteria for the followup of incidental pulmonary nodules was implemented if appropriate. DLP: 384 mGy-cm. FINDINGS: There are postoperative changes of an anterior cervical discectomy and fusion with anterior hardware fusing the C5-C7 vertebra. Hardware is grossly intact and there is no evidence to suggest loosening or failure. There is slight retrolisthesis of C4 on C5. Alignment is otherwise normal. Vertebral heights are preserved. No acute fracture. No abnormal prevertebral soft tissue swelling. There is junctional spondylosis above the fused segments at the level of C4-C5 where there is mild hypertrophic disc osteophyte spurring. Grossly no evidence of canal compromise. Visualized soft tissues of the neck are normal. Grossly no pathologically enlarged cervical lymph nodes. Limited visualization of intracranial anatomy reveals no abnormal finding. Lung apices are clear. CT/CT cervical spine wo IV con IMPRESSION: There are postoperative changes of an anterior cervical discectomy and fusion with hardware fusing the C5-C7 vertebra. Hardware is grossly intact and there is no evidence to suggest loosening or failure. There is junctional spondylosis above the fused segments at the level of C4-C5. Grossly no evidence of canal compromise.
--- NOTE | ~2022-03-23 | CT_ITS ---
CT head for stroke CLINICAL INFORMATION: Left-sided weakness COMPARISON: Multiple prior studies including MRI from August [address] scan from 02/24/2022 TECHNIQUE: Department standard protocol. This CT examination was performed using dose optimization techniques as appropriate, variously including the following: *Automated exposure control *Adjustment of mA and/or kV according to patient size (this includes techniques or standardized protocols for targeted exams where dose is matched to indication/reason for exam; i.e. extremities or head) *Use of iterative reconstruction technique DLP: 641 mGy-cm FINDINGS: CEREBRAL HEMISPHERES: There is probably lacunar infarct in the right frontoparietal region, indeterminant age, unchanged from prior exams, image 25 series 5. There is lacunar infarct in the left parietal lobe image 33 series 5 indeterminant age. No intracranial bleed. BRAIN PARENCHYMA: Normal zarate-white matter differentiation. SUBDURAL SPACE: No bleed. BASAL GANGLIA AND PINEAL GLAND: Unremarkable VENTRICLES: Symmetric and normal in size. CEREBELLUM AND BRAINSTEM: No space-occupying mass, hemorrhage or acute infarct. CEREBELLOPONTINE ANGLES: No lesion found. ORBITS: No intraorbital mass. VESSELS: Unremarkable SKULL BASE: Unremarkable INCLUDED SINUSES AT SKULL BASE: Clear SKULL AND SKIN: No fracture or bone lesion found. CT/CT head for stroke IMPRESSION: * No CT evidence of intracranial space-occupying mass, or bleed. * There are small focal hypodensities probably lacunar infarcts in the right frontoparietal region and left parietal lobe, probably old lacunar infarcts. This critical result was discussed with Adarsh by telephone at 03/23/2022 2:05 PM and it was ascertained that the content and urgency of the report was understood at the time of direct communication.
--- NOTE | ~2022-03-23 | XR_ITS ---
EXAMINATION: XR CHEST CLINICAL INFORMATION: Syncope. COMPARISON: 12/10/2020 chest radiograph. TECHNIQUE: 2 views of the chest were obtained. FINDINGS: No significant abnormality is noted involving the heart, lungs, mediastinum, bony thorax or soft tissues. XR/XR chest 2V IMPRESSION: No acute cardiopulmonary process.
--- NOTE | 2022-03-23 13:42 | ECG_ITS ---
Test Reason : stroke Blood Pressure : / mmHG Vent. Rate : 063 BPM Atrial Rate : 063 BPM P-R Int : 156 ms QRS Dur : 088 ms QT Int : 434 ms P-R-T Axes : 000 -01 017 degrees QTc Int : 444 ms Normal sinus rhythm Normal ECG When compared with ECG of 27-AUG-2021 10:03, No significant change was found Referred By: Damir Altamirano Electronically Signed By:Erasmo Green
--- NOTE | 2022-03-23 13:48 | ED_ITS ---
HPI - Syncope General Chief Complaint: Syncope Stated Complaint: STROKE ALERT,LKW 15 MINS AGO,S/O CONFUSION Time Seen by Provider: 03/23/22 13:41 Source: patient and EMS Mode of arrival: wheelchair Limitations: no limitations History of Present Illness HPI narrative: 61-year-old female presents emergency department complaining of left-sided weakness per EMS patient has a history of MS. Patient has history of recurrent syncope with weakness she states she is allergic to IV did need to contrast she states she gets hives I do not see any history of her getting a CTA past for these symptoms she has been sent for MRI. Patient is allergic to iodinated contrast so I will give her Decadron Benadryl we cannot get an MRI and time as it is the weekend and her CT scan they have 30 minutes to an hour to come in which is well out of the window. MD complaint: loss of consciousness Related Data Home Medications Medication Instructions Recorded Confirmed clonazepam 1 mg tablet 1 mg PO TID 11/20/19 03/04/22 quetiapine 100 mg tablet 200 mg PO BEDTIME 03/14/20 03/04/22 quetiapine 25 mg tablet 25 mg PO DAILY 01/16/21 03/04/22 bwcbykyg-lksnnjle-lfdk 45 mg-folic 1 cap PO DAILY 01/17/21 03/04/22 acid 800 mcg-vit K 120 mcg capsule (Bariatric Multivitamins) brimonidine 0.2 % eye drops 1 drp ophthalmic (eye) BID 04/12/21 03/04/22 paroxetine HCl 40 mg tablet 40 mg PO BEDTIME 08/23/21 03/04/22 fludrocortisone 0.1 mg tablet 0.1 mg PO DAILY 09/20/21 03/04/22 topiramate 25 mg tablet 25 mg PO DAILY 01/17/22 03/04/22 paroxetine HCl 10 mg tablet 10 mg PO BEDTIME 03/04/22 03/04/22 buspirone 7.5 mg tablet 1 tab PO BID 03/23/22 gabapentin 600 mg tablet 600 mg PO BID 03/23/22 methocarbamol 750 mg tablet 1 tab PO TID 03/23/22 Previous Rx's Medication Instructions Recorded lidocaine 5 % topical patch 1 patch topical DAILY 30 days #30 02/15/21 ea rosuvastatin 10 mg tablet (Crestor) 10 mg PO DAILY #90 tabs 09/06/21 albuterol sulfate 90 mcg/actuation 2 puff inhalation Q4-6H PRN 01/21/22 aerosol inhaler (ProAir HFA) shortness of breath or wheezing #8.5 grams daeuntggym-vobzjtdhuenqd-oaqzuzvs 1 tab PO Q6H PRN pain #90 tabs 01/21/22 50 mg-325 mg-40 mg tablet oxycodone-acetaminophen 5 mg-325 1 tab PO QID PRN pain (scale score 02/21/22 mg tablet 7-10) 30 days #120 tabs gabapentin 600 mg tablet 600 mg PO BID #180 tabs 02/26/22 fluticasone propionate 50 1 spray intranasal DAILY #16 grams 03/15/22 mcg/actuation nasal spray,suspension Allergies Allergy/AdvReac Type Severity Reaction Status Date / Time Iodinated Contrast Media Allergy Intermediate HIVES Verified 03/04/22 08:54 [Iodinated Contrast Media - IV Dye] ketorolac [From Toradol] Allergy Intermediate localized Verified 03/04/22 08:54 redness/swelling Review of Systems Review of Systems: Review of systems: General: Patient denies any fever chills recent illness or falls Musculoskeletal: Denies back pain or body aches or other injuries HEENT: Headache denies, runny nose, ear pain Respiratory: denies shortness of breath, cough Cardiovascular: no chest pain or palpitations : denies dysuria, frequency Abdomen: no nausea vomiting denies abdominal pain Extremities: no swelling, no pain Skin: no diaphoresis Yes all other systems are reviewed and are negative [facility] Past Medical History Medical History (Updated 03/23/22 @ 15:52 by Damir Altamirano DO) Abscess or cellulitis of knee Allergic rhinitis Anemia Anxiety with depression Arthritis Asthma Back pain Bunion of left foot Calf pain Cellulitis Cervical radiculopathy Cervical spondylosis with radiculopathy Cervical strain Chronic sinusitis Colon polyps COVID-19 vaccine administered Depression Fatty liver GERD (gastroesophageal reflux disease) Hematoma following procedure Herpes Hyperlipidemia Hypotension Incisional pain Labral tear of right hip joint Malabsorption due to intolerance, not elsewhere classified Migraines Neck pain Neutropenia Postconcussion syndrome Postlaminectomy syndrome Postoperative bleeding from incision Sacroiliitis Seroma due to trauma Skin laxity Spinal stenosis Syncope Surgical History (Updated 03/04/22 @ 09:03 by Negar Avila) H/O colonoscopy H/O endoscopy H/O laminectomy History of appendectomy History of endometrial ablation History of hip surgery Hx of abdominal surgery Hx of spinal fusion S/P bilateral foot surgery S/P laparoscopic sleeve gastrectomy S/P laparoscopic sleeve gastrectomy S/P panniculectomy S/P panniculectomy S/P plastic surgery S/P tonsillectomy Status post bariatric surgery Family History Family History Father No problems noted. Mother Cervical spine tumor Brother No problems noted. Brother No problems noted. Brother No problems noted. Brother No problems noted. Sister Mental health disorder Son No problems noted. Daughter No problems noted. Social History Social History Household Members: Spouse Housing: House Are you a primary caretaker grounds to a significant other at home: No Do you presently have visiting nurse or other home services: No Alcohol intake: never Patient Tobacco Use Status: Former Tobacco user Second Hand Smoke Exposure: No Substance Use Type: Marijuana Advance Directives: Yes Advance Directives Information Provided: No Advance Directives on File: No Advance Directives Date on File: 08/28/21 service: No Current occupational status: disabled Cognitive needs: No Hearing needs: No Vision needs: No Physical Exam Vital Signs: Vital Signs: Last Vital Signs Temp 97.8 F 03/23/22 14:03 Pulse 60 03/23/22 14:03 Resp 16 03/23/22 14:03 BP 139/61 03/23/22 14:03 Pulse Ox 99 03/23/22 14:03 O2 Del Method 03/23/22 14:03 BMI result Body Mass Index 27.3 Neurological exam: CN II- XII tested. Patient is alert and oriented to person place and time. Patient has no dysphagia or dysarthia, denies good vision in all four vision pedraza no nystagmus on exam, good strength to upper and lower extremities left side is weaker than the right but she does have strength to both sides with normal reflexes to brachioradialis, wrist, patella and achilles. Negative romberg, good finger to nose and heel to hernandez. General: Well-appearing well-nourished in no signs of distress HEENT: Normocephalic atraumatic Neck: No signs of JVD, no masses no tenderness or lymphadenopathy Cardiovascular: Regular rate and rhythm Respiratory: Clear to auscultation bilaterally Abdomen: Soft nontender no masses Extremities: Normal pedal pulses no signs of edema Skin: Dry warm no rashes Back: No tenderness full ROM NIH Stroke Scale Internal: Initial- Upon Arrival Time: 13:51 Level of Consciousness: Alert Level of Consciousness Questions: Answers both questions correctly Level of Consciousness Commands: Performs both tasks correctly Best Gaze: Normal Visual: No visual loss Facial Palsy: Normal Motor Arm (Right): No drift Motor Arm (Left): No drift Motor Leg (Right): No drift Motor Leg (Left): No drift Limb Ataxia: Absent Sensory: Normal Best Language: No aphasia Dysarthia: Normal Extinction and Inattention: No abnormality Score: 0 Medications Administered Discontinued Medications Generic Name Dose Route Start Last Admin Trade Name Adiq PRN Reason Stop Dose Admin Dexamethasone Sodium Phosphate 10 mg 03/23/22 13:47 03/23/22 14:31 Dexamethasone Sod Phosphate 10 Mg/Ml Vial IVPUSH 03/23/22 13:48 10 mg ONCE ONE Administration Diphenhydramine HCl 25 mg 03/23/22 13:47 03/23/22 14:31 Diphenhydramine Hcl 50 Mg/Ml Vial IVPUSH 03/23/22 13:48 25 mg ONCE ONE Administration Medical Decision Making Medical Decision Making [facility] Narrative: Patient states she has got chronic left-sided weakness do not see this on the previous notes she is allergic to contrast I will give her Decadron as well as Benadryl I gave patient fluids she is complaining of a headache this could be a head bleed as well. She is only complaining of headache she does have left- sided weakness and left leg weakness but mostly she is just slow to do tasks she has strength she is able to talk but just respond slowly. 1407 MRI state they will be here while the patient is still in the window with her contrast allergy I think this should be sufficient. 1547 Patient not a TPA candidate no ELVO no obvious acute infarct to explain her symptoms. Patient has obvious stroke might be sequelae of MR. I will consult Neurology about treatment. Her main complaint is still headache, labs, MRI are all unremarkable. I will treat with reglan benadryl and tylenol. She looks well weakness to the left side is no longer present. 1601 Neurology is avaiable for strokes but no rat poisoner for the ED for consults. I did page but they have not answered. I will admit to medicine. Differential Diagnosis Differential Diagnoses: The differential diagnosis associated with the presentation includes Syncope MS or stroke brain mass or being bleeding or conversion disorder. Priscilla mark has had this multiple times I did see notes Admission/Observation Consideration of admission/observation: Escalation of care including admission/observation considered Lab Data MDM Lab Attestation statement: I reviewed the patient's lab results. 03/23/22 14:08 03/23/22 14:08 Labs: Lab Results 03/23/22 03/23/22 03/23/22 Range/Units 13:56 13:56 14:08 WBC 4.7 L (4.8-10.8) X10*3/uL RBC 3.66 L (4.20-5.50) X10*6/uL Hgb 11.5 L (12.0-16.0) g/dl Hct 33.9 L (37.0-47.0) % MCV 92.6 (80.0-98.0) fL MCH 31.4 (27.0-33.0) pg MCHC 33.9 (31.0-35.0) g/dl RDW 12.2 (11.0-16.0) % Plt Count 201 (160-400) X10*3/uL MPV 9.6 (9.4-12.3) fL Immature Gran % (Auto) 0.2 (0.0-0.4) % Neut % (Auto) 36.1 L (45-73) % Lymph % (Auto) 48.9 H (20-40) % Richardson % (Auto) 11.8 H (2-11) % Eos % (Auto) 2.6 (0-4) % Baso % (Auto) 0.4 (0-2) % Lymph # (Auto) 2.3 (1.2-4.9) X10*3/uL Richardson # (Auto) 0.6 (0.1-1.2) X10*3/uL Eos # (Auto) 0.1 (0.0-0.4) X10*3/uL Baso # (Auto) 0.0 (0.0-0.2) X10*3/uL Abs Immat Gran (auto) 0.01 (0.00-0.03) X10*3/uL Absolute Neuts (auto) 1.7 L (2.0-8.3) x10*3/uL Absolute Nucleated RBC 0.000 (0.0-0.012) X10*3/uL Nucleated RBC % (auto) 0.0 (0.0-0.2) /100WBC Whole Blood PT 12.0 (11.1-13.5) sec Whole Blood INR 1.0 (0.9-1.1) Sodium (135-145) mmol/L Potassium (3.3-5.1) mmol/L Chloride (96-108) mmol/L Carbon Dioxide (22-29) mmol/L Anion Gap (12-20) BUN (9-16) mg/dL Creatinine (0.5-1.4) mg/dL Estim Creat Clear Calc Estimated GFR POC Glucose 89 (60-115) mg/dL Random Glucose (60-115) mg/dL Lactic Acid (0.5-2.0) mmol/L Calcium (8.4-10.2) mg/dL Total Bilirubin (0.0-1.0) mg/dL Direct Bilirubin (0.0-0.5) mg/dL AST (5-31) U/L ALT (0-31) U/L Alkaline Phosphatase (39-117) U/L Troponin I High Sens (<3.5-17.0) ng/L Total Protein (6.5-8.0) g/dL Albumin (3.5-5.0) g/dL Lipase (8-78) U/L Influenza Type A (PCR) (Negative) Influenza Type B (PCR) (Negative) RSV RNA Qual (PCR) (Negative) SARS-CoV-2 RNA (RT-PCR) (Negative) 03/23/22 03/23/22 03/23/22 Range/Units 14:08 14:08 14:08 WBC (4.8-10.8) X10*3/uL RBC (4.20-5.50) X10*6/uL Hgb (12.0-16.0) g/dl Hct (37.0-47.0) % MCV (80.0-98.0) fL MCH (27.0-33.0) pg MCHC (31.0-35.0) g/dl RDW (11.0-16.0) % Plt Count (160-400) X10*3/uL MPV (9.4-12.3) fL Immature Gran % (Auto) (0.0-0.4) % Neut % (Auto) (45-73) % Lymph % (Auto) (20-40) % Richardson % (Auto) (2-11) % Eos % (Auto) (0-4) % Baso % (Auto) (0-2) % Lymph # (Auto) (1.2-4.9) X10*3/uL Richardson # (Auto) (0.1-1.2) X10*3/uL Eos # (Auto) (0.0-0.4) X10*3/uL Baso # (Auto) (0.0-0.2) X10*3/uL Abs Immat Gran (auto) (0.00-0.03) X10*3/uL Absolute Neuts (auto) (2.0-8.3) x10*3/uL Absolute Nucleated RBC (0.0-0.012) X10*3/uL Nucleated RBC % (auto) (0.0-0.2) /100WBC Whole Blood PT (11.1-13.5) sec Whole Blood INR (0.9-1.1) Sodium 139 (135-145) mmol/L Potassium 4.1 (3.3-5.1) mmol/L Chloride 104 (96-108) mmol/L Carbon Dioxide 27 (22-29) mmol/L Anion Gap 12 (12-20) BUN 21 H (9-16) mg/dL Creatinine 0.69 (0.5-1.4) mg/dL Estim Creat Clear Calc 84.3 Estimated GFR > 60 POC Glucose (60-115) mg/dL Random Glucose 93 (60-115) mg/dL Lactic Acid 0.6 (0.5-2.0) mmol/L Calcium 9.1 (8.4-10.2) mg/dL Total Bilirubin 0.3 (0.0-1.0) mg/dL Direct Bilirubin < 0.2 (0.0-0.5) mg/dL AST 23 (5-31) U/L ALT 18 (0-31) U/L Alkaline Phosphatase 91 (39-117) U/L Troponin I High Sens < 3.5 (<3.5-17.0) ng/L Total Protein 6.5 (6.5-8.0) g/dL Albumin 4.3 (3.5-5.0) g/dL Lipase 41 (8-78) U/L Influenza Type A (PCR) (Negative) Influenza Type B (PCR) (Negative) RSV RNA Qual (PCR) (Negative) SARS-CoV-2 RNA (RT-PCR) (Negative) 03/23/22 Range/Units 14:11 WBC (4.8-10.8) X10*3/uL RBC (4.20-5.50) X10*6/uL Hgb (12.0-16.0) g/dl Hct (37.0-47.0) % MCV (80.0-98.0) fL MCH (27.0-33.0) pg MCHC (31.0-35.0) g/dl RDW (11.0-16.0) % Plt Count (160-400) X10*3/uL MPV (9.4-12.3) fL Immature Gran % (Auto) (0.0-0.4) % Neut % (Auto) (45-73) % Lymph % (Auto) (20-40) % Richardson % (Auto) (2-11) % Eos % (Auto) (0-4) % Baso % (Auto) (0-2) % Lymph # (Auto) (1.2-4.9) X10*3/uL Richardson # (Auto) (0.1-1.2) X10*3/uL Eos # (Auto) (0.0-0.4) X10*3/uL Baso # (Auto) (0.0-0.2) X10*3/uL Abs Immat Gran (auto) (0.00-0.03) X10*3/uL Absolute Neuts (auto) (2.0-8.3) x10*3/uL Absolute Nucleated RBC (0.0-0.012) X10*3/uL Nucleated RBC % (auto) (0.0-0.2) /100WBC Whole Blood PT (11.1-13.5) sec Whole Blood INR (0.9-1.1) Sodium (135-145) mmol/L Potassium (3.3-5.1) mmol/L Chloride (96-108) mmol/L Carbon Dioxide (22-29) mmol/L Anion Gap (12-20) BUN (9-16) mg/dL Creatinine (0.5-1.4) mg/dL Estim Creat Clear Calc Estimated GFR POC Glucose (60-115) mg/dL Random Glucose (60-115) mg/dL Lactic Acid (0.5-2.0) mmol/L Calcium (8.4-10.2) mg/dL Total Bilirubin (0.0-1.0) mg/dL Direct Bilirubin (0.0-0.5) mg/dL AST (5-31) U/L ALT (0-31) U/L Alkaline Phosphatase (39-117) U/L Troponin I High Sens (<3.5-17.0) ng/L Total Protein (6.5-8.0) g/dL Albumin (3.5-5.0) g/dL Lipase (8-78) U/L Influenza Type A (PCR) NEGATIVE (Negative) Influenza Type B (PCR) NEGATIVE (Negative) RSV RNA Qual (PCR) NEGATIVE (Negative) SARS-CoV-2 RNA (RT-PCR) NEGATIVE (Negative) Independent Interpretation I performed an independent interpretation of an: EKG Radiology Impression Discussion of test interpretation with radiology: I have reviewed the radiologist's reading. External Record Review External record reviewed: Inpatient record, Office record, Outpatient record, Prior outpatient labs and Prior outpatient radiology Critical Care Time Critical Care Time Critical Care Time: Yes Total Critical Care Time: 60 Attestation: Stroke patient seen immediately upon arrival sent over for CT non-con as I tried to p.o. when MRI would be in. I did pre treat for possible CT as well for patie nt results back the radiologist and the patient multiple times multiple re- evaluations for stroke symptoms. Discharge Plan Discharge Clinical Impression: Acute left-sided muscle weakness, Headache, Multiple sclerosis Patient Disposition: Admitted As Inpatient Instructions: Multiple Sclerosis (DC), Weakness (ED), General Headache (ED) Prescriptions: No Action lrzmmhgvoa-mvgcknoulnjqf-sout 50-325-40 mg tablet 1 tab PO Q6H PRN (Reason: pain) Qty: 90 0RF albuterol sulfate [ProAir HFA] 90 mcg/actuation HFA aerosol inhaler 2 puff inhalation Q4-6H PRN (Reason: shortness of breath or wheezing) Qty: 8.5 6RF oxycodone-acetaminophen 5-325 mg tablet 1 tab PO QID MDD 4 PRN (Reason: pain (scale score 7-10)) 30 Days Qty: 120 0RF Rx Instructions: Partial Fill upon patient request. gabapentin 600 mg tablet 600 mg PO BID Qty: 180 3RF fluticasone propionate 50 mcg/actuation spray,suspension 1 spray intranasal DAILY Qty: 16 5RF Rx Instructions: administer into each nostril paroxetine HCl 10 mg tablet 10 mg PO BEDTIME gabapentin 600 mg tablet 600 mg PO BID methocarbamol 750 mg tablet 1 tab PO TID buspirone 7.5 mg tablet 1 tab PO BID rosuvastatin [Crestor] 10 mg tablet 10 mg PO DAILY Qty: 90 2RF clonazepam 1 mg tablet 1 mg PO TID quetiapine 100 mg tablet 200 mg PO BEDTIME quetiapine 25 mg tablet 25 mg PO DAILY Bariatric Multivitamins 45 mg iron- 800 mcg-120 mcg capsule 1 cap PO DAILY topiramate 25 mg tablet 25 mg PO DAILY lidocaine 5 % adhesive patch,medicated 1 patch topical DAILY 30 Days Qty: 30 3RF Rx Instructions: leave on most painful area for up to 12 hrs brimonidine 0.2 % drops 1 drp ophthalmic (eye) BID paroxetine HCl 40 mg tablet 40 mg PO BEDTIME fludrocortisone 0.1 mg tablet 0.1 mg PO DAILY
[2022-03-23 13:51] VITALS: BP 132/70; PULSE 65; O2SAT 100
[2022-03-23 14:03] VITALS: BP 139/61; PULSE 60; RESP 16; TEMP 36.6; O2SAT 99; BMI 27.3
[2022-03-23 14:08] LABS: Glucose, Whole Blood 89 mg/dL (60-115)
[2022-03-23 14:14] LABS: MANUAL DIFF FLAG NO
[2022-03-23 14:16] LABS: Basophils Percent Auto 0.4 % (0-2); Eosinophils Absolute Auto 0.1 X10*3/uL (0.0-0.4); Eosinophils Percent Auto 2.6 % (0-4); Hematocrit 33.9 % (37.0-47.0); Hemoglobin 11.5 g/dl (12.0-16.0); Imm Gran Abs Auto 0.01 X10*3/uL (0.00-0.03); Imm Gran Pct Auto 0.2 % (0.0-0.4); Lymphocytes Absolute Auto 2.3 X10*3/uL (1.2-4.9); Lymphocytes Percent Auto 48.9 % (20-40); Mean Corpuscular HGB Conc 33.9 g/dl (31.0-35.0); Mean Corpuscular Hemoglobin 31.4 pg (27.0-33.0); Mean Corpuscular Volume 92.6 fL (80.0-98.0); Mean Platelet Volume 9.6 fL (9.4-12.3); Monocytes Absolute Auto 0.6 X10*3/uL (0.1-1.2); Monocytes Percent Auto 11.8 % (2-11); Neutrophils Absolute Auto 1.7 x10*3/uL (2.0-8.3); Neutrophils Percent Auto 36.1 % (45-73); Platelet Count 201 X10*3/uL (160-400); Red Blood Count 3.66 X10*6/uL (4.20-5.50); Red Cell Distribution Width 12.2 % (11.0-16.0); White Blood Count 4.7 X10*3/uL (4.8-10.8)
[2022-03-23] MEDS: diphenhydrAMINE HCL 50 MG/ML VIAL 25 MG IVPUSH ×2 (14:31→16:16)
[2022-03-23] MEDS: dexAMETHasone sod phosphate 10 MG/ML VIAL IVPUSH (14:31)
[2022-03-23 14:40] LABS: Lactic Acid 0.6 mmol/L (0.5-2.0)
[2022-03-23 14:51] LABS: Alanine Aminotransferase 18 U/L (0-31); Albumin Level 4.3 g/dL (3.5-5.0); Alkaline Phosphatase 91 U/L (39-117); Anion Gap 12 (12-20); Aspartate Amino Transferase 23 U/L (5-31); Bilirubin Direct < 0.2 mg/dL (0.0-0.5); Bilirubin Total 0.3 mg/dL (0.0-1.0); Blood Urea Nitrogen 21 mg/dL (9-16); Calcium 9.1 mg/dL (8.4-10.2); Carbon Dioxide 27 mmol/L (22-29); Chloride 104 mmol/L (96-108); Creatinine Clr Calc Pharmacy 84.3; Estimated Glomerular Filt Rate > 60; Glucose Random 93 mg/dL (60-115); Lipase 41 U/L (8-78); Potassium 4.1 mmol/L (3.3-5.1); Sodium 139 mmol/L (135-145); Total Protein 6.5 g/dL (6.5-8.0)
[2022-03-23 14:56] LABS: Influenza A PCR NEGATIVE (Negative); Influenza B PCR NEGATIVE (Negative); Resp Syncy Virus RNA Qual PCR NEGATIVE (Negative); SARS COV2 PCR INHOUSE NEGATIVE (Negative)
[2022-03-23 14:58] LABS: Troponin-I High Sensitivity < 3.5 ng/L (<3.5-17.0)
--- NOTE | 2022-03-23 15:51 | MHC.EDTECH ---
@[phone] called Neuro per request of Dr. Altamirano. The individual on the phone took patient demographics. She said the home planning consultant salesperson Neurologist was Dr. Evans.
[2022-03-23] MEDS: 0.9 % Sodium Chloride 1,000 ML 999 ML IV (16:06)
[2022-03-23] MEDS: Metoclopramide HCl 10 MG/2 ML VIAL IVPUSH (16:16)
[2022-03-23] MEDS: Acetaminophen 325 MG TABLET 650 MG PO (16:17)
[2022-03-23 16:25] VITALS: BP 121/52; PULSE 71; RESP 14; TEMP 36.4; O2SAT 98
--- NOTE | 2022-03-23 17:08 | P.HPHOSP_ITS ---
History of Present Illness Date of Service: 03/23/22 Attending physician on admission: Darrel Duong Chief Complaint: syncope, left-sided weakness 61-year-old female with history of chronic normocytic anemia, anxiety and depression, moderate persistent asthma, cervical radiculopathy, oral herpes, hyperlipidemia, hypertension, migraines, lumbar stenosis, chronic pain syndrome on chronic opiates, and multiple sclerosis presented to the ED via EMS following a syncopal episode and left-sided weakness. The patient reports that she was leaving a store and developed sudden onset nausea and vertigo. She then syncopized and was unconscious for which she believes to be several minutes. When she woke, she was in an ambulance and was disoriented. According to the patient, she was told by EMS that she had left-sided weakness and left-sided facial droop. She states she has similar symptoms several weeks ago which were self-limiting. She also tells me that she has had a left frontal throbbing headache since this morning. Denies any associated blurred vision, diplopia, phonophobia, photophobia, palpitations, shortness of breath, chest pain. She is currently reporting a generalized weakness and vertigo as well as nausea and states that her headache persists. In the ED, head CT negative for any acute intracranial abnormality though there is evidence of possible old lacunar infar ct in right frontoparietal region and left parietal lobe. No fractures or subluxation noted. Brain MRI negative for any acute intracranial findings, specifically without evidence of acute infarct. There is evidence of nonspecific mild supratentorial white matter disease possibly reflecting mild c hronic microangiopathy or chronic demyelinating disease, other etiologies not excluded. CXR negative. Hematology studies unremarkable. Renal function and electrolyte levels normal. EKG showing normal sinus rhythm, rate 63. Unchanged from prior EKGs. Vital signs stable, no hypotension. ED discussed case with Dr. Evans recommending observation overnight. Review of Systems Review of Systems: General: No fevers, malaise, unintentional weight loss. + generalized weakness HEENT: No blurred vision, diplopia. No sore throat, nasal congestion, rhinorrhea, sinus pain, ear pain Cardiovascular: No chest pain, palpitations, or leg edema Respiratory: No shortness of breath, wheezing, cough GI: + nausea. No abdominal pain, vomiting, diarrhea, constipation, melena, hematochezia : No dysuria, hematuria, increased urinary frequency, decreased urinary output MSK: No myalgia, back pain Neuro: +syncope, +left sided weakness, +h/a, +vertigo. N paresthesias Skin: No rashes or lesions Yes all other systems are reviewed and are negative [facility] Medical History Abscess or cellulitis of knee Allergic rhinitis Anemia Anxiety with depression Arthritis Asthma Back pain Bunion of left foot Calf pain Cellulitis Cervical radiculopathy Cervical spondylosis with radiculopathy Cervical strain Chronic sinusitis Colon polyps COVID-19 vaccine administered Depression Fatty liver GERD (gastroesophageal reflux disease) Hematoma following procedure Herpes Hyperlipidemia Hypotension Incisional pain Labral tear of right hip joint Malabsorption due to intolerance, not elsewhere classified Migraines Neck pain Neutropenia Postconcussion syndrome Postlaminectomy syndrome Postoperative bleeding from incision Sacroiliitis Seroma due to trauma Skin laxity Spinal stenosis Syncope Family History Father No problems noted. Mother Cervical spine tumor Brother No problems noted. Brother No problems noted. Brother No problems noted. Brother No problems noted. Sister Mental health disorder Son No problems noted. Daughter No problems noted. Surgical History H/O colonoscopy H/O endoscopy H/O laminectomy History of appendectomy History of endometrial ablation History of hip surgery Hx of abdominal surgery Hx of spinal fusion S/P bilateral foot surgery S/P laparoscopic sleeve gastrectomy S/P laparoscopic sleeve gastrectomy S/P panniculectomy S/P panniculectomy S/P plastic surgery S/P tonsillectomy Status post bariatric surgery Social History Household Members: Spouse Housing: House Are you a primary menagerie caretaker to a significant other at home: No Do you presently have visiting nurse or other home services: No Alcohol intake: never Patient Tobacco Use Status: Former Tobacco user Smoked in Last 30 Days: No Second Hand Smoke Exposure: No Use of substances other than those prescribed or required for medical reasons: No Substance Use Type: Marijuana Advance Directives: Yes Advance Directives Information Provided: No Advance Directives on File: No Advance Directives Date on File: 08/28/21 service: No Current occupational status: disabled Cognitive needs: No Hearing needs: No Vision needs: No Meds Allergies Allergy/AdvReac Type Severity Reaction Status Date / Time Iodinated Contrast Media Allergy Intermediate HIVES Verified 03/04/22 08:54 [Iodinated Contrast Media - IV Dye] ketorolac [From Toradol] Allergy Intermediate localized Verified 03/04/22 08:54 redness/swelling Active Medications: Current Medications Acetaminophen (Acetaminophen 325 Mg Tablet) 650 mg PO Q6H PRN PRN Reason: Pain, Mild (Pain Scale 1-3) Enoxaparin Sodium (Enoxaparin Sodium 40 Mg/0.4 Ml Syringe) 40 mg SUBCUT Q24H HAY Ondansetron HCl (Ondansetron Hcl 4 Mg/2 Ml Vial) 4 mg IVPUSH Q8H PRN PRN Reason: Nausea and Vomiting Oxycodone HCl (Oxycodone Hcl Immed Release 5 Mg Tablet) 5 mg PO Q6H PRN PRN Reason: Pain, Severe (Pain Scale 7-10) Pharmacy Consult (Consult Rx Perform Med Rec) 1 each MISCELLANE ONCE PRN PRN Reason: Consult order Senna (Sennosides 8.6 Mg Tablet) 17.2 mg PO BEDTIME PRN PRN Reason: Constipation Sodium Chloride (0.9 % Sodium Chloride Flush 3 Ml Syringe) 3 ml IVFLUSH QSHIFT [facility] Home Medications Medication Instructions Recorded Confirmed Last Taken Type clonazepam 1 mg tablet 1 mg PO TID 11/20/19 03/23/22 03/23/22 History quetiapine 100 mg tablet 200 mg PO BEDTIME 03/14/20 03/23/22 03/22/22 History quetiapine 25 mg tablet 25 mg PO DAILY 01/16/21 03/23/22 03/23/22 History kwjvasib-tchhyvrh-sasv 45 mg-folic 1 cap PO DAILY 01/17/21 03/23/22 03/23/22 History acid 800 mcg-vit K 120 mcg capsule (Bariatric Multivitamins) brimonidine 0.2 % eye drops 1 drp ophthalmic (eye) BID 04/12/21 03/23/22 03/23/22 History paroxetine HCl 40 mg tablet 40 mg PO BEDTIME 0703/23/22 03/22/22 History fludrocortisone 0.1 mg tablet 0.1 mg PO DAILY 09/20/21 03/23/22 03/23/22 History paroxetine HCl 10 mg tablet 10 mg PO BEDTIME 03/04/22 03/23/22 03/22/22 History buspirone 7.5 mg tablet 1 tab PO BID 03/23/22 03/23/22 03/23/22 History fluticasone furoate 200 1 inh inhalation DAILY 03/23/22 03/23/22 03/23/22 History mcg-vilanterol 25 mcg/dose inhalation powder (Breo Ellipta) gabapentin 600 mg tablet 600 mg PO BID 03/23/22 03/23/22 03/23/22 History methocarbamol 750 mg tablet 1 tab PO TID 03/23/22 03/23/22 03/23/22 History Physical Exam Vital Signs and Narrative: Vital Signs: Last Vital Signs Temp 97.6 F 03/23/22 16:25 Pulse 71 03/23/22 16:25 Resp 14 03/23/22 16:25 BP 121/52 L 03/23/22 16:25 Pulse Ox 98 03/23/22 16:25 O2 Del Method 03/23/22 16:25 BMI result Body Mass Index 27.3 Constitutional - Awake and Alert, No apparent distress Eyes - PERRLA, EOMI Head-normocephalic, atraumatic. 1 cm scar left forehead Cardiovascular - S1S2, RRR, No edema Respiratory - Normal lung expansion, Normal respiratory effort, No respiratory distress, CTA bilaterally Gastrointestinal - NT / ND; +BS; No rebound or guarding Extremities - no calf tenderness bilaterally, no swelling Skin - Warm/Dry Neurological - Alert & oriented x3, CN II-XII in tact, 4/5 strength BUE and BLE , DTR 2+ throughout Psychological - Appropriate affect Results Labs 03/23/22 14:08 03/23/22 14:08 Labs: Laboratory Results - last 24 hr 03/23/22 03/23/22 03/23/22 13:56 13:56 14:08 MCV 92.6 MCH 31.4 MCHC 33.9 RDW 12.2 Plt Count 201 MPV 9.6 Immature Gran % (Auto) 0.2 Neut % (Auto) 36.1 L Lymph % (Auto) 48.9 H [place] % (Auto) 11.8 H Eos % (Auto) 2.6 Baso % (Auto) 0.4 Lymph # (Auto) 2.3 [place] # (Auto) 0.6 Eos # (Auto) 0.1 Baso # (Auto) 0.0 Abs Immat Gran (auto) 0.01 Absolute Neuts (auto) 1.7 L Absolute Nucleated RBC 0.000 Nucleated RBC % (auto) 0.0 Whole Blood PT 12.0 Whole Blood INR 1.0 Anion Gap Estim Creat Clear Calc Estimated GFR POC Glucose 89 Random Glucose Lactic Acid Calcium Total Bilirubin Direct Bilirubin AST ALT Alkaline Phosphatase Troponin I High Sens Total Protein Albumin Lipase Influenza Type A (PCR) Influenza Type B (PCR) RSV RNA Qual (PCR) SARS-CoV-2 RNA (RT-PCR) 03/23/22 03/23/22 03/23/22 14:08 14:08 14:08 MCV MCH MCHC RDW Plt Count MPV Immature Gran % (Auto) Neut % (Auto) Lymph % (Auto) [place] % (Auto) Eos % (Auto) Baso % (Auto) Lymph # (Auto) [place] # (Auto) Eos # (Auto) Baso # (Auto) Abs Immat Gran (auto) Absolute Neuts (auto) Absolute Nucleated RBC Nucleated RBC % (auto) Whole Blood PT Whole Blood INR Anion Gap 12 Estim Creat Clear Calc 84.3 Estimated GFR > 60 POC Glucose Random Glucose 93 Lactic Acid 0.6 Calcium 9.1 Total Bilirubin 0.3 Direct Bilirubin < 0.2 AST 23 ALT 18 Alkaline Phosphatase 91 Troponin I High Sens < 3.5 Total Protein 6.5 Albumin 4.3 Lipase 41 Influenza Type A (PCR) Influenza Type B (PCR) RSV RNA Qual (PCR) SARS-CoV-2 RNA (RT-PCR) 03/23/22 14:11 MCV MCH MCHC RDW Plt Count MPV Immature Gran % (Auto) Neut % (Auto) Lymph % (Auto) [place] % (Auto) Eos % (Auto) Baso % (Auto) Lymph # (Auto) [place] # (Auto) Eos # (Auto) Baso # (Auto) Abs Immat Gran (auto) Absolute Neuts (auto) Absolute Nucleated RBC Nucleated RBC % (auto) Whole Blood PT Whole Blood INR Anion Gap Estim Creat Clear Calc Estimated GFR POC Glucose Random Glucose Lactic Acid Calcium Total Bilirubin Direct Bilirubin AST ALT Alkaline Phosphatase Troponin I High Sens Total Protein Albumin Lipase Influenza Type A (PCR) NEGATIVE Influenza Type B (PCR) NEGATIVE RSV RNA Qual (PCR) NEGATIVE SARS-CoV-2 RNA (RT-PCR) NEGATIVE Imaging Radiologist's Impressions: Impressions Head CT 03/23/22 13:42 IMPRESSION: * No CT evidence of intracranial space-occupying mass, or bleed. * There are small focal hypodensities probably lacunar infarcts in the right frontoparietal region and left parietal lobe, probably old lacunar infarcts. This critical result was discussed with Adarsh by telephone at 03/23/2022 2:05 PM and it was ascertained that the content and urgency of the report was understood at the time of direct communication. Cervical Spine CT 03/23/22 13:56 IMPRESSION: There are postoperative changes of an anterior cervical discectomy and fusion with hardware fusing the C5-C7 vertebra. Hardware is grossly intact and there is no evidence to suggest loosening or failure. There is junctional spondylosis above the fused segments at the level of C4-C5. Grossly no evidence of canal compromise. Chest X-Ray 03/23/22 14:22 IMPRESSION: No acute cardiopulmonary process. Brain MRI 03/23/22 15:15 IMPRESSION: 1. No acute intracranial findings, specifically without evidence of acute infarct. 2. Nonspecific mild supratentorial white matter disease which may reflect mild chronic microangiopathy however chronic demyelinating disease, sequelae of Lyme disease, and other etiologies are not excluded. Clinical correlation and possible CSF fluid sampling may be pursued as warranted. Assessment and Plan (1) Acute left-sided muscle weakness: Status: Acute (2) Headache: Status: Acute (3) Multiple sclerosis: Status: Acute Plan 61-year-old female with history of chronic normocytic anemia, anxiety and depression, moderate persistent asthma, cervical radiculopathy, oral herpes, hyperlipidemia, hypertension, migraines, lumbar stenosis, chronic pain syndrome on chronic opiates, and multiple sclerosis to be observed for left-sided weakness and migraine headache. #Migraine headache with associated left-sided weakness, vertigo, nausea and syncope -head CT and brain MRI negative for any acute infarction -given progressive nature of symptoms, suspect complex migraine syndrome vs MS flare though per ED pt has presented with similar symptoms in past. No steroids per Neuro -continue home Fioricet -ondansetron p.r.n. for nausea -PT eval -appreciate neurology input # syncope-likely related to complex migraine -Head CT and MRI brain negative for acute intracranial abnormality. No fractures or subluxation noted on cervical spine CT for head CT -no evidence of arrhythmia on telemetry. EKG showing normal sinus rhythm, rate 63. No evidence of infection, though will check UA -check orthostatics -renal function electrolytes normal -admit to telemetry #Hx hypotension -check orthostatics -continue fludrocortisone # multiple sclerosis -No optic neuritis, diplopia -Pt has unilateral left sided weakness -Appreciate neurology input. No steroids per neurology #Chronic pain syndrome related to cervical radiculopathy, lumbar stenosis, failed back syndrome -continue gabapentin, lidocaine patches, muscle relaxers, oxycodone # moderate persistent asthma-without acute exacerbation -continue Breo inhalers -albuterol p.r.n. # mood disorder/anxiety -continue home meds # glaucoma -continue eyedrops DVT prophylaxis-Lovenox Full code Time Spent With Patient Time: Total time managing care of this patient today ____ minutes. Quality Stroke Does the patient have a stroke diagnosis?: No VTE Prior VTE?: No VTE Risk Level:: Medical - moderate - high VTE Device Contraindication: Treatment Not Indicated VTE Drug Contraindication: N/A - Med Ordered
--- NOTE | 2022-03-23 17:31 | PHA.MEDREC ---
Pharmacy Consult ? Medication Reconciliation Pharmacy has completed the medication reconciliation.
[2022-03-23] MEDS: oxyCODONE HCl Immed Release 5 MG TABLET PO (17:37)
[2022-03-23] MEDS: Enoxaparin Sodium 40 MG/0.4 ML SYRINGE SUBCUT (18:46)
[2022-03-23] MEDS: Fludrocortisone Acetate 0.1 MG TABLET PO (19:17)
[2022-03-23 19:21] VITALS: O2SAT 97
[2022-03-23 19:26] VITALS: BP 109/45; BP 119/55; PULSE 72; PULSE 76
[2022-03-23 19:27] VITALS: BP 107/53; PULSE 73
--- NOTE | 2022-03-23 19:30 | PC.NURSE ---
This music writer assumed care of this PT at 1900. PT A&Ox4, reports 07/27 headache. No facial droop noted, hand power sweeper operator equal, no hand drift noted, and BLL strength. Orthostatic vitals obtained. Denies any dizziness. PT ambulated to BR with steady gait. Tolerating PO fluids and food. Will CTM.
[2022-03-23] MEDS: Cyclobenzaprine HCl 10 MG TABLET PO (21:55)
[2022-03-23] MEDS: Gabapentin 600 MG TABLET PO (21:55)
[2022-03-23] MEDS: QUEtiapine Fumarate 200 MG TABLET PO (21:55)
[2022-03-23] MEDS: PARoxetine HCL 40 MG TABLET PO (21:55)
[2022-03-23] MEDS: busPIRone HCl 5 MG TABLET 7.5 MG PO (21:56)
[2022-03-23] MEDS: clonazePAM 1 MG TABLET PO (21:56)
[2022-03-23] MEDS: Brimonidine Tartrate 0.2% Oph 5 ML BOTTLE 1 DROP EYE-BOTH (22:10)
[2022-03-24] VITALS (10 sets, daily range): BP systolic 93–138; BP diastolic 39–67; PULSE 59–76; RESP 13–18; TEMP 36.1–36.8; O2SAT 94–100; BMI 26.4
[2022-03-24] MEDS: 0.9 % Sodium Chloride Flush 3 ML SYRINGE IVFLUSH ×4 (00:46→20:04)
--- NOTE | 2022-03-24 00:48 | PC.NURSE ---
PT BP 88/40 on RA, BP cuff switched to LA 95/46. PT states It usually get that low .
--- NOTE | 2022-03-24 04:30 | PC.NURSE ---
PT sleeping, awakens upon verbal stimuli. VSS. No apparent distress. Will CTM.
[2022-03-24 04:39] LABS: Appearance Urine Clear; Color Urine Dark Yellow; Glucose Urine UA Negative (Negative); Leukocyte Esterase Urine Negative (Negative); Nitrite Urine Negative (Negative); PH 5.5 (5.0-9.0); Specific Gravity - Urine >= 1.030 (1.005-1.025); Urine Blood Negative (Negative); Urine Ketones 15 mg/dL (Negative); Urine Protein Negative (Neg-Trace)
--- NOTE | 2022-03-24 05:54 | PC.NURSE ---
RN to RN report given. PT being transported to room 459 by fiber technician. PT aware of plan.
[2022-03-24] MEDS: oxyCODONE HCl Immed Release 5 MG TABLET PO ×2 (07:32→20:06)
[2022-03-24 08:10] LABS: MANUAL DIFF FLAG NO
[2022-03-24 08:16] LABS: Basophils Percent Auto 0.5 % (0-2); Eosinophils Percent Auto 0.4 % (0-4); Hematocrit 33.1 % (37.0-47.0); Hemoglobin 11.2 g/dl (12.0-16.0); Imm Gran Abs Auto 0.01 X10*3/uL (0.00-0.03); Imm Gran Pct Auto 0.2 % (0.0-0.4); Lymphocytes Absolute Auto 1.9 X10*3/uL (1.2-4.9); Mean Corpuscular HGB Conc 33.8 g/dl (31.0-35.0); Mean Corpuscular Hemoglobin 31.4 pg (27.0-33.0); Mean Corpuscular Volume 92.7 fL (80.0-98.0); Monocytes Absolute Auto 0.6 X10*3/uL (0.1-1.2); Monocytes Percent Auto 10.5 % (2-11); Neutrophils Absolute Auto 3.1 x10*3/uL (2.0-8.3); Neutrophils Percent Auto 55.4 % (45-73); Platelet Count 202 X10*3/uL (160-400); Red Blood Count 3.57 X10*6/uL (4.20-5.50); Red Cell Distribution Width 12.1 % (11.0-16.0); White Blood Count 5.6 X10*3/uL (4.8-10.8)
[2022-03-24] MEDS: Lidocaine 4 % Patch ADH..PATCH 1 PATCH TRANSDERMA (08:46)
[2022-03-24 08:47] LABS: Anion Gap 14 (12-20); Blood Urea Nitrogen 17 mg/dL (9-16); Calcium 9.3 mg/dL (8.4-10.2); Carbon Dioxide 25 mmol/L (22-29); Chloride 108 mmol/L (96-108); Estimated Glomerular Filt Rate > 60; Glucose Random 87 mg/dL (60-115); Potassium 3.9 mmol/L (3.3-5.1); Sodium 143 mmol/L (135-145)
[2022-03-24] MEDS: Multivitamin TABLET 1 TAB PO (08:48)
[2022-03-24] MEDS: Cyclobenzaprine HCl 10 MG TABLET PO ×2 (08:50→20:04)
[2022-03-24] MEDS: busPIRone HCl 5 MG TABLET 7.5 MG PO ×2 (08:50→20:07)
[2022-03-24] MEDS: QUEtiapine Fumarate 25 MG TABLET PO (08:51)
[2022-03-24] MEDS: Fludrocortisone Acetate 0.1 MG TABLET PO (08:51)
[2022-03-24] MEDS: clonazePAM 1 MG TABLET PO ×3 (08:51→20:07)
[2022-03-24] MEDS: Brimonidine Tartrate 0.2% Oph 5 ML BOTTLE 1 DROP EYE-BOTH ×2 (08:52→20:10)
[2022-03-24] MEDS: Atorvastatin Calcium 40 MG TABLET PO (08:53)
[2022-03-24] MEDS: Fluticasone/Vilanterol 200/25 BLST.W.DEV 1 PUFF INHALE (08:57)
[2022-03-24] MEDS: Gabapentin 600 MG TABLET PO ×2 (09:00→20:06)
--- NOTE | 2022-03-24 09:28 | MHC.CM.PN ---
BRUCE DELIVERED PT LIVES WITH SPOUSE AND GRANDDAUGHTER IN A [facility]. NO SERVICES OR DME USED PRIOR TO HOSPITALIZATION. UNSURE IF HAS A COPY OF HCP BUT WILLING TO DO A NEW ONE. +COVID VAXX2. PCP DR. COYLE. WILL TRANSPORT ON DC
--- NOTE | 2022-03-24 13:36 | P.PNIM_ITS ---
Subjective Subjective Date of Service: 03/24/22 Interval History: Seen in follow up for syncope, left sided weakness Interval history: No overnight events on telemetry. Still with 6/10 left frontal throbbing headache with intermittent nausea and vertigo. Reports generalized weakness. No visual changes. Review of Systems Review of Systems: Yes all other systems are reviewed and are negative Physical Exam Vital Signs: Vital Signs: Last Vital Signs Temp 98.1 F 03/24/22 11:57 Pulse 68 03/24/22 11:57 Resp 18 03/24/22 11:57 BP 125/62 03/24/22 11:57 Pulse Ox 99 03/24/22 11:57 O2 Del Method 03/24/22 11:57 BMI result Body Mass Index 26.4 Constitutional - Awake and Alert, No apparent distress Eyes - PERRLA, EOMI Cardiovascular - S1S2, RRR, No edema Respiratory - Normal lung expansion, Normal respiratory effort, No respiratory distress, CTA bilaterally Gastrointestinal - NT / ND; +BS; No rebound or guarding Extremities - no calf tenderness bilaterally, no swelling Skin - Warm/Dry Neurological - Alert & oriented x3, CN II-XII in tact, 4/5 strength left upper and lower extremities. 5/5 right extremities Psychological - Appropriate affect Objective Data Active Medications Acetaminophen (Acetaminophen 325 Mg Tablet) 650 mg PO Q6H PRN PRN Reason: Pain, Mild (Pain Scale 1-3) Acetaminophen/Butalbital/Caffeine (Butalb/Acetamin/Caff 50/325/40 Tablet) 1 tab PO Q6H PRN PRN Reason: Migraine Headache Albuterol Sulfate (Albuterol Sulfate 90 Mcg 8 Gm Inhaler) 2 puff INHALE Q4H PRN PRN Reason: shortness of breath or wheezing Atorvastatin Calcium (Atorvastatin Calcium 40 Mg Tablet) 40 mg PO DAILY [facility] Last Admin: 03/24/22 08:53 Dose: 40 mg Documented By: JUSTO Brimonidine Tartrate (Brimonidine Tartrate 0.2% Oph 5 Ml Bottle) 1 drop EYE- BOTH BID [facility] Last Admin: 03/24/22 08:52 Dose: 1 drop Documented By: JUSTO Buspirone HCl (Buspirone Hcl 5 Mg Tablet) 7.5 mg PO BID [facility] Last Admin: 03/24/22 08:50 Dose: 7.5 mg Documented By: JUSTO Clonazepam (Clonazepam 1 Mg Tablet) 1 mg PO TID [facility] Last Admin: 03/24/22 08:51 Dose: 1 mg Documented By: JUSTO Cyclobenzaprine HCl (Cyclobenzaprine Hcl 10 Mg Tablet) 10 mg PO BID [facility] Last Admin: 03/24/22 08:50 Dose: 10 mg Documented By: JUSTO Enoxaparin Sodium (Enoxaparin Sodium 40 Mg/0.4 Ml Syringe) 40 mg SUBCUT Q24H [facility] Last Admin: 03/23/22 18:46 Dose: 40 mg Documented By: CARLEY Fludrocortisone Acetate (Fludrocortisone Acetate 0.1 Mg Tablet) 0.1 mg PO DAILY [facility] Last Admin: 03/24/22 08:51 Dose: 0.1 mg Documented By: JUSTO Fluticasone Propionate (Fluticasone Propionate Nasal 16 Gm [place]) 1 spray NOSTRIL-B DAILY [facility] Last Admin: 03/24/22 12:58 Dose: Not Given Documented By: GUANAKO Non-Admin Reason: called pharmacy - did not receive the medicat Fluticasone/Vilanterol (Fluticasone/Vilanterol 200/25 Blst.W.Dev) 1 puff INHALE DAILY [facility] Last Admin: 03/24/22 08:57 Dose: 1 puff Documented By: JUSTO Gabapentin (Gabapentin 600 Mg Tablet) 600 mg PO BID [facility] Last Admin: 03/24/22 09:00 Dose: 600 mg Documented By: JUSTO Lidocaine (Lidocaine 4 % Patch Adh..Patch) 1 patch TRANSDERMA DAILY [facility] Last Admin: 03/24/22 08:46 Dose: 1 patch Documented By: JUSTO Multivitamins/Vitamin C (Multivitamin Tablet) 1 tab PO DAILY [facility] Last Admin: 03/24/22 08:48 Dose: 1 tab Documented By: JUSTO Ondansetron HCl (Ondansetron Hcl 4 Mg/2 Ml Vial) 4 mg IVPUSH Q8H PRN PRN Reason: Nausea and Vomiting Oxycodone HCl (Oxycodone Hcl Immed Release 5 Mg Tablet) 5 mg PO Q6H PRN PRN Reason: Pain, Severe (Pain Scale 7-10) Last Admin: 03/24/22 07:32 Dose: 5 mg Documented By: JUSTO Paroxetine HCl (Paroxetine Hcl 40 Mg Tablet) 40 mg PO BEDTIME [facility] Last Admin: 03/23/22 21:55 Dose: 40 mg Documented By: RYLAN Pharmacy Consult (Consult Rx Perform Med Rec) 1 each MISCELLANE ONCE PRN PRN Reason: Consult order Quetiapine Fumarate (Quetiapine Fumarate 25 Mg Tablet) 25 mg PO DAILY [facility] Last Admin: 03/24/22 08:51 Dose: 25 mg Documented By: JUSTO Quetiapine Fumarate (Quetiapine Fumarate 200 Mg Tablet) 200 mg PO BEDTIME [facility] Last Admin: 03/23/22 21:55 Dose: 200 mg Documented By: RYLAN Senna (Sennosides 8.6 Mg Tablet) 17.2 mg PO BEDTIME PRN PRN Reason: Constipation Sodium Chloride (0.9 % Sodium Chloride Flush 3 Ml Syringe) 3 ml IVFLUSH QSHIFT [facility] Last Admin: 03/24/22 08:46 Dose: 3 ml Documented By: JUSTO Labs 03/24/22 07:41 03/24/22 07:41 Labs: Laboratory Results - last 24 hr 03/23/22 03/23/22 03/23/22 13:56 13:56 14:08 MCV 92.6 MCH 31.4 MCHC 33.9 RDW 12.2 Plt Count 201 MPV 9.6 Immature Gran % (Auto) 0.2 Neut % (Auto) 36.1 L Lymph % (Auto) 48.9 H [place] % (Auto) 11.8 H Eos % (Auto) 2.6 Baso % (Auto) 0.4 Lymph # (Auto) 2.3 [place] # (Auto) 0.6 Eos # (Auto) 0.1 Baso # (Auto) 0.0 Abs Immat Gran (auto) 0.01 Absolute Neuts (auto) 1.7 L Absolute Nucleated RBC 0.000 Nucleated RBC % (auto) 0.0 Whole Blood PT 12.0 Whole Blood INR 1.0 Anion Gap Estim Creat Clear Calc Estimated GFR POC Glucose 89 Random Glucose Lactic Acid Calcium Total Bilirubin Direct Bilirubin AST ALT Alkaline Phosphatase Troponin I High Sens Total Protein Albumin Lipase Urine Color Urine Appearance Urine pH Ur Specific [place] Urine Protein Urine Glucose (UA) Urine Ketones Urine Blood Urine Nitrite Ur Leukocyte Esterase Influenza Type A (PCR) Influenza Type B (PCR) RSV RNA Qual (PCR) SARS-CoV-2 RNA (RT-PCR) 03/23/22 03/23/22 03/23/22 14:08 14:08 14:08 MCV MCH MCHC RDW Plt Count MPV Immature Gran % (Auto) Neut % (Auto) Lymph % (Auto) [place] % (Auto) Eos % (Auto) Baso % (Auto) Lymph # (Auto) [place] # (Auto) Eos # (Auto) Baso # (Auto) Abs Immat Gran (auto) Absolute Neuts (auto) Absolute Nucleated RBC Nucleated RBC % (auto) Whole Blood PT Whole Blood INR Anion Gap 12 Estim Creat Clear Calc 84.3 Estimated GFR > 60 POC Glucose Random Glucose 93 Lactic Acid 0.6 Calcium 9.1 Total Bilirubin 0.3 Direct Bilirubin < 0.2 AST 23 ALT 18 Alkaline Phosphatase 91 Troponin I High Sens < 3.5 Total Protein 6.5 Albumin 4.3 Lipase 41 Urine Color Urine Appearance Urine pH Ur Specific [place] Urine Protein Urine Glucose (UA) Urine Ketones Urine Blood Urine Nitrite Ur Leukocyte Esterase Influenza Type A (PCR) Influenza Type B (PCR) RSV RNA Qual (PCR) SARS-CoV-2 RNA (RT-PCR) 03/23/22 03/24/22 03/24/22 14:11 04:26 07:41 MCV 92.7 MCH 31.4 MCHC 33.8 RDW 12.1 Plt Count 202 MPV 10.0 Immature Gran % (Auto) 0.2 Neut % (Auto) 55.4 Lymph % (Auto) 33.0 [place] % (Auto) 10.5 Eos % (Auto) 0.4 Baso % (Auto) 0.5 Lymph # (Auto) 1.9 [place] # (Auto) 0.6 Eos # (Auto) 0.0 Baso # (Auto) 0.0 Abs Immat Gran (auto) 0.01 Absolute Neuts (auto) 3.1 Absolute Nucleated RBC 0.000 Nucleated RBC % (auto) 0.0 Whole Blood PT Whole Blood INR Anion Gap Estim Creat Clear Calc Estimated GFR POC Glucose Random Glucose Lactic Acid Calcium Total Bilirubin Direct Bilirubin AST ALT Alkaline Phosphatase Troponin I High Sens Total Protein Albumin Lipase Urine Color Dark Yellow Urine Appearance Clear Urine pH 5.5 Ur Specific [place] >= 1.030 H Urine Protein Negative Urine Glucose (UA) Negative Urine Ketones 15 Urine Blood Negative Urine Nitrite Negative Ur Leukocyte Esterase Negative Influenza Type A (PCR) NEGATIVE Influenza Type B (PCR) NEGATIVE RSV RNA Qual (PCR) NEGATIVE SARS-CoV-2 RNA (RT-PCR) NEGATIVE 03/24/22 07:41 MCV MCH MCHC RDW Plt Count MPV Immature Gran % (Auto) Neut % (Auto) Lymph % (Auto) [place] % (Auto) Eos % (Auto) Baso % (Auto) Lymph # (Auto) [place] # (Auto) Eos # (Auto) Baso # (Auto) Abs Immat Gran (auto) Absolute Neuts (auto) Absolute Nucleated RBC Nucleated RBC % (auto) Whole Blood PT Whole Blood INR Anion Gap 14 Estim Creat Clear Calc 87.0 Estimated GFR > 60 POC Glucose Random Glucose 87 Lactic Acid Calcium 9.3 Total Bilirubin Direct Bilirubin AST ALT Alkaline Phosphatase Troponin I High Sens Total Protein Albumin Lipase Urine Color Urine Appearance Urine pH Ur Specific [place] Urine Protein Urine Glucose (UA) Urine Ketones Urine Blood Urine Nitrite Ur Leukocyte Esterase Influenza Type A (PCR) Influenza Type B (PCR) RSV RNA Qual (PCR) SARS-CoV-2 RNA (RT-PCR) Assessment and Plan (1) Acute left-sided muscle weakness: Status: Acute (2) Headache: Status: Acute Plan 61-year-old female with history of chronic normocytic anemia, anxiety and depr ession, moderate persistent asthma, cervical radiculopathy, oral herpes, hyperlipidemia, hypertension, migraines, lumbar stenosis, chronic pain syndrome on chronic opiates, and multiple sclerosis to be observed for left-sided weakness and migraine headache. #Migraine headache with associated left-sided weakness, vertigo, nausea and syncope -head CT and brain MRI negative for any acute infarction -given progressive nature of symptoms, suspect complex migraine syndrome vs MS flare though per ED pt has presented with similar symptoms in past. No steroids per Neuro -continue home Fioricet. Add imitrex -ondansetron p.r.n. for nausea -PT eval -appreciate neurology input # syncope-likely related to complex migraine -Head CT and MRI brain negative for acute intracranial abnormality.? No fracture s or subluxation noted on cervical spine CT for head CT -no evidence of arrhythmia on telemetry. EKG showing normal sinus rhythm, rate 63.? No evidence of infection -orthostatic vs negative -renal function electrolytes normal -admit to telemetry #Hx hypotension -check orthostatics -continue fludrocortisone # multiple sclerosis -No optic neuritis, diplopia -Pt has unilateral left sided weakness -Appreciate neurology input. No steroids per neurology #Chronic pain syndrome related to cervical radiculopathy, lumbar stenosis, failed back syndrome -continue gabapentin, lidocaine patches, muscle relaxers, oxycodone # moderate persistent asthma-without acute exacerbation -continue Breo inhalers -albuterol p.r.n. # mood disorder/anxiety -continue home meds # glaucoma -continue eyedrops DVT prophylaxis-Lovenox Full code Time Spent With Patient Time: Total time managing care of this patient today ____ minutes. Quality Stroke Does the patient have a stroke diagnosis?: No VTE Prior VTE?: No VTE Risk Level:: Medical - moderate - high VTE Device Contraindication: Treatment Not Indicated VTE Drug Contraindication: N/A - Med Ordered
[2022-03-24] MEDS: Butalb/Acetamin/Caff 50/325/40 TABLET 1 TAB PO (15:16)
[2022-03-24] MEDS: Fluticasone Propionate Nasal 16 GM SPRAY 1 SPRAY NOSTRIL-B (16:40)
[2022-03-24] MEDS: Enoxaparin Sodium 40 MG/0.4 ML SYRINGE SUBCUT (17:38)
[2022-03-24] MEDS: Acetaminophen 325 MG TABLET 650 MG PO (20:05)
[2022-03-24] MEDS: QUEtiapine Fumarate 200 MG TABLET PO (20:06)
[2022-03-24] MEDS: PARoxetine HCL 40 MG TABLET PO (20:07)
[2022-03-25] MEDS: oxyCODONE HCl Immed Release 5 MG TABLET PO ×3 (02:31→15:13)
[2022-03-25] MEDS: Acetaminophen 325 MG TABLET 650 MG PO (02:32)
[2022-03-25 03:37] VITALS: BP 104/55; PULSE 67; RESP 14; TEMP 36.5; O2SAT 97
[2022-03-25 07:18] VITALS: BP 110/65; PULSE 68; RESP 20; TEMP 36.4; O2SAT 96
[2022-03-25] MEDS: Fluticasone/Vilanterol 200/25 BLST.W.DEV 1 PUFF INHALE (08:13)
[2022-03-25 08:14] VITALS: PULSE 75; O2SAT 94
[2022-03-25] MEDS: Atorvastatin Calcium 40 MG TABLET PO (09:12)
[2022-03-25] MEDS: busPIRone HCl 5 MG TABLET 7.5 MG PO (09:12)
[2022-03-25] MEDS: Gabapentin 600 MG TABLET PO (09:12)
[2022-03-25] MEDS: QUEtiapine Fumarate 25 MG TABLET PO (09:12)
[2022-03-25] MEDS: Fludrocortisone Acetate 0.1 MG TABLET PO (09:13)
[2022-03-25] MEDS: clonazePAM 1 MG TABLET PO ×2 (09:13→15:13)
[2022-03-25] MEDS: Cyclobenzaprine HCl 10 MG TABLET PO (09:13)
[2022-03-25] MEDS: Multivitamin TABLET 1 TAB PO (09:14)
[2022-03-25] MEDS: Brimonidine Tartrate 0.2% Oph 5 ML BOTTLE 1 DROP EYE-BOTH (09:14)
[2022-03-25] MEDS: Lidocaine 4 % Patch ADH..PATCH 1 PATCH TRANSDERMA (09:14)
[2022-03-25] MEDS: Fluticasone Propionate Nasal 16 GM SPRAY 1 SPRAY NOSTRIL-B (09:16)
[2022-03-25] MEDS: 0.9 % Sodium Chloride Flush 3 ML SYRINGE IVFLUSH (09:17)
[2022-03-25] MEDS: ondansetron HCL 4 MG/2 ML VIAL IVPUSH (09:21)
[2022-03-25 11:26] VITALS: BP 102/55; PULSE 64; RESP 20; TEMP 36.4; O2SAT 96
[2022-03-25 12:04] VITALS: BP 102/55; PULSE 64; O2SAT 96
--- NOTE | 2022-03-25 12:39 | PM.NEUROCN ---
History of Present Illness Data of Consult Service Date: 03/25/22 Primary Care Provider: Corinne Figueroa MD [facility] Reason for consult: Syncope 61-year-old female with history of chronic normocytic anemia, anxiety and depression, moderate persistent asthma, cervical radiculopathy, oral herpes, hyperlipidemia, hypertension, migraines, lumbar stenosis, chronic pain syndrome on chronic opiates, and possible multiple sclerosis presented to the ED via EMS following a syncopal episode and left-sided weakness.? The patient reports that she was leaving a store and developed sudden onset nausea and vertigo. She was in a store when she felt dizziness, passed out and woke up in an ambulance. Review of Systems Review of Systems: No recent cold or flu like illness PMFSH Past Medical History Medical History Abscess or cellulitis of knee Allergic rhinitis Anemia Anxiety with depression Arthritis Asthma Back pain Bunion of left foot Calf pain Cellulitis Cervical radiculopathy Cervical spondylosis with radiculopathy Cervical strain Chronic sinusitis Colon polyps COVID-19 vaccine administered Depression Fatty liver GERD (gastroesophageal reflux disease) Hematoma following procedure Herpes Hyperlipidemia Hypotension Incisional pain Labral tear of right hip joint Malabsorption due to intolerance, not elsewhere classified Migraines Neck pain Neutropenia Postconcussion syndrome Postlaminectomy syndrome Postoperative bleeding from incision Sacroiliitis Seroma due to trauma Skin laxity Spinal stenosis Syncope Family History Family History Father No problems noted. Mother Cervical spine tumor Brother No problems noted. Brother No problems noted. Brother No problems noted. Brother No problems noted. Sister Mental health disorder Son No problems noted. Daughter No problems noted. Surgical History Surgical History H/O colonoscopy H/O endoscopy H/O laminectomy History of appendectomy History of endometrial ablation History of hip surgery Hx of abdominal surgery Hx of spinal fusion S/P bilateral foot surgery S/P laparoscopic sleeve gastrectomy S/P laparoscopic sleeve gastrectomy S/P panniculectomy S/P panniculectomy S/P plastic surgery S/P tonsillectomy Status post bariatric surgery Social History Social History Household Members: Spouse Housing: House Are you a primary patient care manager to a significant other at home: No Do you presently have visiting nurse or other home services: No Alcohol intake: never Patient Tobacco Use Status: Former Tobacco user Smoked in Last 30 Days: No Second Hand Smoke Exposure: No Use of substances other than those prescribed or required for medical reasons: No Substance Use Type: Marijuana Currently Displaying Signs/Symptoms of Drug Intoxication Withdrawal: No Have you been hit, kicked, punched, or otherwise hurt by someone within the past year? If so, by whom?: No Do you feel safe in your current relationship?: Yes Is there a partner from a previous relationship who is making you feel unsafe now?: No Are you made to feel afraid or neglected: No Advance Directives: Yes Advance Directives Information Provided: No Advance Directives on File: No Advance Directives Date on File: 08/28/21 Do you have thoughts of harming others: None Do you have a plan to hurt others: No Plan Recently lost weight without trying: No Nutrition Risks: No Nutritional Risk Patient : No : No Poor oral hygiene: No service: No Current occupational status: disabled Cognitive needs: No Hearing needs: No Vision needs: No Meds Allergies Allergy/AdvReac Type Severity Reaction Status Date / Time Iodinated Contrast Media Allergy Intermediate HIVES Verified 03/04/22 08:54 [Iodinated Contrast Media - IV Dye] ketorolac [From Toradol] Allergy Intermediate localized Verified 03/04/22 08:54 redness/swelling Active Medications: Current Medications Acetaminophen (Acetaminophen 325 Mg Tablet) 650 mg PO Q6H PRN PRN Reason: Pain, Mild (Pain Scale 1-3) Last Admin: 03/25/22 02:32 Dose: 650 mg Acetaminophen/Butalbital/Caffeine (Butalb/Acetamin/Caff 50/325/40 Tablet) 1 tab PO Q6H PRN PRN Reason: Migraine Headache Last Admin: 03/24/22 15:16 Dose: 1 tab Albuterol Sulfate (Albuterol Sulfate 90 Mcg 8 Gm Inhaler) 2 puff INHALE Q4H PRN PRN Reason: shortness of breath or wheezing Atorvastatin Calcium (Atorvastatin Calcium 40 Mg Tablet) 40 mg PO DAILY [facility] Last Admin: 03/25/22 09:12 Dose: 40 mg Brimonidine Tartrate (Brimonidine Tartrate 0.2% Oph 5 Ml Bottle) 1 drop EYE-BOTH BID [facility] Last Admin: 03/25/22 09:14 Dose: 1 drop Buspirone HCl (Buspirone Hcl 5 Mg Tablet) 7.5 mg PO BID [facility] Last Admin: 03/25/22 09:12 Dose: 7.5 mg Clonazepam (Clonazepam 1 Mg Tablet) 1 mg PO TID [facility] Last Admin: 03/25/22 09:13 Dose: 1 mg Cyclobenzaprine HCl (Cyclobenzaprine Hcl 10 Mg Tablet) 10 mg PO BID [facility] Last Admin: 03/25/22 09:13 Dose: 10 mg Enoxaparin Sodium (Enoxaparin Sodium 40 Mg/0.4 Ml Syringe) 40 mg SUBCUT Q24H [facility] Last Admin: 03/24/22 17:38 Dose: 40 mg Fludrocortisone Acetate (Fludrocortisone Acetate 0.1 Mg Tablet) 0.1 mg PO DAILY [facility] Last Admin: 03/25/22 09:13 Dose: 0.1 mg Fluticasone Propionate (Fluticasone Propionate Nasal 16 Gm [place]) 1 spray NOSTRIL-B DAILY [facility] Last Admin: 03/25/22 09:16 Dose: 1 spray Fluticasone/Vilanterol (Fluticasone/Vilanterol 200/25 Blst.W.Dev) 1 puff INHALE DAILY [facility] Last Admin: 03/25/22 08:13 Dose: 1 puff Gabapentin (Gabapentin 600 Mg Tablet) 600 mg PO BID [facility] Last Admin: 03/25/22 09:12 Dose: 600 mg Lidocaine (Lidocaine 4 % Patch Adh..Patch) 1 patch TRANSDERMA DAILY [facility] Last Admin: 03/25/22 09:14 Dose: 1 patch Multivitamins/Vitamin C (Multivitamin Tablet) 1 tab PO DAILY [facility] Last Admin: 03/25/22 09:14 Dose: 1 tab Ondansetron HCl (Ondansetron Hcl 4 Mg/2 Ml Vial) 4 mg IVPUSH Q8H PRN PRN Reason: Nausea and Vomiting Last Admin: 03/25/22 09:21 Dose: 4 mg Oxycodone HCl (Oxycodone Hcl Immed Release 5 Mg Tablet) 5 mg PO Q6H PRN PRN Reason: Pain, Severe (Pain Scale 7-10) Last Admin: 03/25/22 09:16 Dose: 5 mg Paroxetine HCl (Paroxetine Hcl 40 Mg Tablet) 40 mg PO BEDTIME [facility] Last Admin: 03/24/22 20:07 Dose: 40 mg Pharmacy Consult (Consult Rx Perform Med Rec) 1 each MISCELLANE ONCE PRN PRN Reason: Consult order Quetiapine Fumarate (Quetiapine Fumarate 25 Mg Tablet) 25 mg PO DAILY [facility] Last Admin: 03/25/22 09:12 Dose: 25 mg Quetiapine Fumarate (Quetiapine Fumarate 200 Mg Tablet) 200 mg PO BEDTIME [facility] Last Admin: 03/24/22 20:06 Dose: 200 mg Senna (Sennosides 8.6 Mg Tablet) 17.2 mg PO BEDTIME PRN PRN Reason: Constipation Sodium Chloride (0.9 % Sodium Chloride Flush 3 Ml Syringe) 3 ml IVFLUSH QSHIFT [facility] Last Admin: 03/25/22 09:17 Dose: 3 ml Sumatriptan Succinate (Sumatriptan Succinate 50 Mg Tablet) 50 mg PO DAILY [facility] PRN PRN Reason: Migraine Headache Home Medications Medication Instructions Recorded Confirmed Last Taken Type clonazepam 1 mg tablet 1 mg PO TID 11/20/19 03/23/22 03/23/22 History quetiapine 100 mg tablet 200 mg PO BEDTIME 03/14/20 03/23/22 03/22/22 History quetiapine 25 mg tablet 25 mg PO DAILY 01/16/21 03/23/22 03/23/22 History [id number] 45 mg-folic 1 cap PO DAILY 01/17/21 03/23/22 03/23/22 History acid 800 mcg-vit K 120 mcg capsule (Bariatric Multivitamins) brimonidine 0.2 % eye drops 1 drp ophthalmic (eye) BID 04/12/21 03/23/22 03/23/22 History paroxetine HCl 40 mg tablet 40 mg PO BEDTIME 08/23/21 03/23/22 03/22/22 History fludrocortisone 0.1 mg tablet 0.1 mg PO DAILY 09/20/21 03/23/22 03/23/22 History paroxetine HCl 10 mg tablet 10 mg PO BEDTIME 03/04/22 03/23/22 03/22/22 History buspirone 7.5 mg tablet 1 tab PO BID 03/23/22 03/23/22 03/23/22 History fluticasone furoate 200 1 inh inhalation DAILY 03/23/22 03/23/22 03/23/22 History mcg-vilanterol 25 mcg/dose inhalation powder (Breo Ellipta) gabapentin 600 mg tablet 600 mg PO BID 03/23/22 03/23/22 03/23/22 History methocarbamol 750 mg tablet 1 tab PO TID 03/23/22 03/23/22 03/23/22 History Physical Exam Vital Signs: Vital Signs: Last Vital Signs Temp 97.6 F 03/25/22 11:26 Pulse 64 03/25/22 12:04 Resp 20 03/25/22 11:26 BP 102/55 L 03/25/22 12:04 Pulse Ox 96 03/25/22 12:04 O2 Del Method 03/25/22 11:26 BMI result Body Mass Index 26.4 Neuro: Other: Alert and awake with normal sp speech, fluency, affect. PERRLA, VFFTC, EOMI, face is symmetrical. No drift. Plantars are flexor Results Labs 03/24/22 07:41 03/24/22 07:41 Assessment and Plan (1) Syncope and collapse: Status: Acute 61 y/o woman on opioids for pain meds and syncope. I suggest minizing opioids and out patient 48 hr EEG to r/o epilepsy Time Spent With Patient Time: Total time managing care of this patient today ____ minutes. Procedures Date of Service Date of Service: 03/25/22
[2022-03-25] MEDS: SUMAtriptan succinate 50 MG TABLET PO (12:48)
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
--- NOTE | 2022-03-25 14:16 | MHC.CM.PN ---
Patient has been medically cleared for dc to home today with services. A referral was made to [facility], who has been made aware of today's dc.
[2022-03-25] MEDS: Enoxaparin Sodium 40 MG/0.4 ML SYRINGE SUBCUT (15:13)
== END 2022-03-25 15:30 | disposition home health service (06) ==
LOC: HO.ED 16:15 → HO.EDOVER 17:05 → HO.IMC 03-24 05:30
PROVIDERS: Admitting Provider Physician Assistant; Emergency Provider Student in an Organized Health Care Education/Training Program; PCP Internal Medicine; Visit Provider Physician Assistant
DX: R55 Syncope and collapse (principal); M62.81 Muscle weakness (generalized); R51.9 Headache, unspecified; G35 Multiple sclerosis; Z20.822 Contact with and (suspected) exposure to COVID-19; Z20.828 Contact with and (suspected) exposure to other viral communicable diseases; I10 Essential (primary) hypertension; E78.5 Hyperlipidemia, unspecified; G89.4 Chronic pain syndrome; D64.9 Anemia, unspecified; K76.0 Fatty (change of) liver, not elsewhere classified; J45.909 Unspecified asthma, uncomplicated; F12.90 Cannabis use, unspecified, uncomplicated; Z98.84 Bariatric surgery status; Z87.891 Personal history of nicotine dependence; Z79.899 Other long term (current) drug therapy; Z79.02 Long term (current) use of antithrombotics/antiplatelets; Z79.891 Long term (current) use of opiate analgesic
CPT/HCPCS: 0241U; 36415; 70450; 70551; 71046; 72125; 80048; 80076; 81003; 82947; 83605; 83690; 84484; 85025; 85610; 93005; 94640; 96361; 96372; 96374; 96375; 96376; 97162; 99222; 99285; J1100; J1200; J1650; J2405; J2765

== ENCOUNTER → 2022-03-28 08:07 | Outpatient (BNVA) | payer OTHER, SELFPAY | PROVIDERS: PCP Internal Medicine; Visit Provider Nurse Practitioner Family | DX: Z51.81 Encounter for therapeutic drug level monitoring (principal); F11.20 Opioid dependence, uncomplicated; M25.562 Pain in left knee; M46.1 Sacroiliitis, not elsewhere classified; M53.3 Sacrococcygeal disorders, not elsewhere classified; M62.838 Other muscle spasm; M96.1 Postlaminectomy syndrome, not elsewhere classified; G89.4 Chronic pain syndrome; Z98.1 Arthrodesis status | CPT/HCPCS: 99212 ==

== ENCOUNTER → 2022-04-25 08:07 | Outpatient (BNVA) | payer OTHER, SELFPAY | PROVIDERS: PCP Internal Medicine; Visit Provider Nurse Practitioner Family | DX: G89.4 Chronic pain syndrome (principal); M46.1 Sacroiliitis, not elsewhere classified; M53.3 Sacrococcygeal disorders, not elsewhere classified; M62.838 Other muscle spasm; M96.1 Postlaminectomy syndrome, not elsewhere classified; M47.27 Other spondylosis with radiculopathy, lumbosacral region; Z79.891 Long term (current) use of opiate analgesic; Z98.1 Arthrodesis status | CPT/HCPCS: 99212 ==

== ENCOUNTER → 2022-04-30 09:08 | Outpatient (BNVA) | payer OTHER, SELFPAY | PROVIDERS: PCP Internal Medicine; Visit Provider Dietitian, Registered | DX: Z98.84 Bariatric surgery status (principal); Z90.3 Acquired absence of stomach [part of]; Z71.3 Dietary counseling and surveillance | CPT/HCPCS: 97803 ==

== ENCOUNTER 2022-05-02 10:29 | Emergency (ER) | payer OTHER, SELFPAY ==
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
[2022-05-02 10:36] VITALS: BP 132/60; BP 170/90; PULSE 104; PULSE 110; RESP 16; O2SAT 96; O2SAT 98; BMI 23.1
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
[2022-05-02 11:02] LABS: MANUAL DIFF FLAG NO
[2022-05-02 11:07] LABS: Basophils Percent Auto 0.5 % (0-2); Eosinophils Absolute Auto 0.1 X10*3/uL (0.0-0.4); Eosinophils Percent Auto 1.2 % (0-4); Hematocrit 37.8 % (37.0-47.0); Hemoglobin 12.7 g/dl (12.0-16.0); Imm Gran Abs Auto 0.04 X10*3/uL (0.00-0.03); Imm Gran Pct Auto 0.5 % (0.0-0.4); Lymphocytes Absolute Auto 3.9 X10*3/uL (1.2-4.9); Lymphocytes Percent Auto 52.9 % (20-40); Mean Corpuscular HGB Conc 33.6 g/dl (31.0-35.0); Mean Corpuscular Hemoglobin 31.1 pg (27.0-33.0); Mean Corpuscular Volume 92.6 fL (80.0-98.0); Mean Platelet Volume 9.9 fL (9.4-12.3); Monocytes Absolute Auto 0.8 X10*3/uL (0.1-1.2); Monocytes Percent Auto 10.3 % (2-11); Neutrophils Absolute Auto 2.5 x10*3/uL (2.0-8.3); Neutrophils Percent Auto 34.6 % (45-73); Platelet Count 269 X10*3/uL (160-400); Red Blood Count 4.08 X10*6/uL (4.20-5.50); Red Cell Distribution Width 12.3 % (11.0-16.0); White Blood Count 7.3 X10*3/uL (4.8-10.8)
[2022-05-02] MEDS: LORazepam 2 MG/ML VIAL 1 MG IVPUSH (11:08)
[2022-05-02] MEDS: 0.9 % Sodium Chloride 1,000 ML 999 ML IV (11:11)
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
[2022-05-02 11:26] LABS: Troponin-I High Sensitivity < 3.5 ng/L (<3.5-17.0)
[2022-05-02 11:27] LABS: Alanine Aminotransferase 53 U/L (0-31); Albumin Level 4.6 g/dL (3.5-5.0); Alkaline Phosphatase 95 U/L (39-117); Anion Gap 13 (12-20); Aspartate Amino Transferase 61 U/L (5-31); Bilirubin Total 0.3 mg/dL (0.0-1.0); Blood Urea Nitrogen 24 mg/dL (9-16); Calcium 9.4 mg/dL (8.4-10.2); Carbon Dioxide 25 mmol/L (22-29); Chloride 105 mmol/L (96-108); Creatinine Clr Calc Pharmacy 74.5; Estimated Glomerular Filt Rate > 60; Glucose Random 104 mg/dL (60-115); Lipase 97 U/L (8-78); Potassium 4.3 mmol/L (3.3-5.1); Sodium 139 mmol/L (135-145); Total Protein 7.2 g/dL (6.5-8.0)
[2022-05-02 11:28] LABS: HCG Quantitative 4 mIU/mL
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
[2022-05-02] MEDS: Morphine Sulfate 2 MG/ML CARTRIDGE IVPUSH (13:04)
[2022-05-02 13:05] VITALS: BP 145/67; PULSE 83; RESP 16; O2SAT 99
[2022-05-02] MEDS: levETIRAcetam 500 MG TABLET PO (13:48)
--- NOTE | 2022-05-02 13:48 | PC.NURSE ---
While pt in xray, staff noted pt to be shaking and verbally unresponsive. Upon this RN arrival pt alert and awake. Did not appear postictal with stable vital. This RN stood with pt until xrays complete then assisted back to room 21. Keppra ordered/given.
[2022-05-02 14:12] LABS: Ethanol < 10 mg/dL
[2022-05-02 14:32] VITALS: BP 145/67; PULSE 82; RESP 18; O2SAT 95
== END 2022-05-02 14:48 | disposition home or self-care (01) ==
PROVIDERS: Emergency Provider Emergency Medicine; PCP Internal Medicine
DX: Z04.1 Encounter for examination and observation following transport accident (principal); G40.909 Epilepsy, unspecified, not intractable, without status epilepticus; R90.82 White matter disease, unspecified; R74.8 Abnormal levels of other serum enzymes; M79.10 Myalgia, unspecified site; R10.2 Pelvic and perineal pain; F41.9 Anxiety disorder, unspecified; I10 Essential (primary) hypertension; E78.5 Hyperlipidemia, unspecified; Z79.899 Other long term (current) drug therapy; Z79.02 Long term (current) use of antithrombotics/antiplatelets; Z79.891 Long term (current) use of opiate analgesic; Z90.3 Acquired absence of stomach [part of]
CPT/HCPCS: 36415; 70450; 71250; 72125; 73030; 73070; 73100; 74176; 80053; 82077; 83690; 84484; 84702; 85025; 93005; 96361; 96374; 96375; 99284; J2060; J2270

== ENCOUNTER 2022-05-08 13:59 | Outpatient (REF) | payer OTHER, SELFPAY ==
[2022-05-08 16:49] LABS: Appearance Urine Clear; Color Urine Yellow; Glucose Urine UA Negative (Negative); Leukocyte Esterase Urine Negative (Negative); Nitrite Urine Negative (Negative); Specific Gravity - Urine 1.025 (1.005-1.025); Urine Blood Negative (Negative); Urine Ketones Trace mg/dL (Negative); Urine Protein Negative (Neg-Trace)
[2022-05-08 16:51] LABS: Bacteria Urine None Seen (None Seen); Hyaline Casts Urine 0-2 /LPF (0-2); RBC Urine 0-2 /HPF (0-2); Squamous Epithelial Cell Urine 0-2 /HPF (0-2); WBC Urine 0-5 /HPF (0-5)
== END 2022-05-08 14:00 | disposition home or self-care (01) ==
LOC: HO.LAB 13:59
PROVIDERS: Visit Provider Internal Medicine
DX: R31.9 Hematuria, unspecified (principal)
CPT/HCPCS: 81001; 87086

== ENCOUNTER 2022-05-13 12:35 | Emergency (ER) | payer OTHER, SELFPAY ==
[2022-05-13 12:50] VITALS: BP 111/60; PULSE 78; O2SAT 100
--- NOTE | 2022-05-13 12:56 | ECG_ITS ---
Test Reason : SYNCOPE Blood Pressure : / mmHG Vent. Rate : 069 BPM Atrial Rate : 069 BPM P-R Int : 156 ms QRS Dur : 084 ms QT Int : 394 ms P-R-T Axes : -06 -13 005 degrees QTc Int : 422 ms Normal sinus rhythm Normal ECG When compared with ECG of 02-MAY-2022 11:00, No significant change was found Referred By: Janae Queen Electronically Signed By:EUSEBIA GUERIN
[2022-05-13 13:00] VITALS: BMI 25.2
[2022-05-13 13:20] VITALS: BP 117/60; PULSE 63; RESP 16; TEMP 36.6; O2SAT 97
[2022-05-13 13:24] LABS: MANUAL DIFF FLAG NO
[2022-05-13 13:25] VITALS: BP 105/50; BP 110/62; PULSE 61; PULSE 66
[2022-05-13 13:27] LABS: Basophils Percent Auto 0.7 % (0-2); Eosinophils Absolute Auto 0.1 X10*3/uL (0.0-0.4); Eosinophils Percent Auto 2.2 % (0-4); Hematocrit 35.7 % (37.0-47.0); Hemoglobin 12.2 g/dl (12.0-16.0); Lymphocytes Absolute Auto 1.9 X10*3/uL (1.2-4.9); Lymphocytes Percent Auto 44.5 % (20-40); Mean Corpuscular HGB Conc 34.2 g/dl (31.0-35.0); Mean Corpuscular Hemoglobin 32.4 pg (27.0-33.0); Mean Corpuscular Volume 94.9 fL (80.0-98.0); Mean Platelet Volume 9.6 fL (9.4-12.3); Monocytes Absolute Auto 0.4 X10*3/uL (0.1-1.2); Monocytes Percent Auto 10.5 % (2-11); Neutrophils Absolute Auto 1.8 x10*3/uL (2.0-8.3); Neutrophils Percent Auto 42.1 % (45-73); Platelet Count 228 X10*3/uL (160-400); Red Blood Count 3.76 X10*6/uL (4.20-5.50); Red Cell Distribution Width 12.9 % (11.0-16.0); White Blood Count 4.2 X10*3/uL (4.8-10.8)
[2022-05-13 13:28] VITALS: BP 90/36; PULSE 70
--- NOTE | 2022-05-13 13:29 | PC.NURSE ---
Pt stood up and stated getting dizzy
[2022-05-13 13:32] LABS: INTERNATIONAL NORM RATIO 0.9 (0.9-1.1); Prothrombin Time 10.3 SEC (10.0-13.1)
--- NOTE | 2022-05-13 13:43 | ED_ITS ---
HPI - General Adult General Chief complaint: General Medical Stated complaint: Syncope Seizure Time Seen by Provider: 05/13/22 12:55 Source: patient Mode of arrival: EMS History of Present Illness HPI narrative: I received an expect from Dr. Evans, neurology, who stated that he was sending a patient for evaluation to the ER for syncope. Dr. Evans informs me that patient has a mildly abnormal EEG and that she has been started on Keppra. It is unclear whether not these may have a component of pseudo-seizure. Patient herself states that she has been dizzy for the past couple of days with nausea and decreased appetite as well as lightheadedness. Related Data Home Medications Medication Instructions Recorded Confirmed quetiapine 25 mg tablet 25 mg PO DAILY 01/16/21 03/23/22 ikqxrqen-pxzjagup-nyzw 45 mg-folic 1 cap PO DAILY 01/17/21 03/23/22 acid 800 mcg-vit K 120 mcg capsule (Bariatric Multivitamins) brimonidine 0.2 % eye drops 1 drp ophthalmic (eye) BID 04/12/21 03/23/22 paroxetine HCl 40 mg tablet 40 mg PO BEDTIME 08/23/21 03/23/22 fludrocortisone 0.1 mg tablet 0.1 mg PO DAILY 09/20/21 03/23/22 fluticasone furoate 200 1 inh inhalation DAILY 03/23/22 03/23/22 mcg-vilanterol 25 mcg/dose inhalation powder (Breo Ellipta) gabapentin 600 mg tablet 600 mg PO BID 03/23/22 03/23/22 methocarbamol 750 mg tablet 1 tab PO TID 03/23/22 03/23/22 clonazepam 1 mg tablet 1 mg PO BID 04/29/22 quetiapine 100 mg tablet 100 mg PO BEDTIME 04/29/22 Previous Rx's Medication Instructions Recorded lidocaine 5 % topical patch 1 patch topical DAILY 30 days #30 02/15/21 ea rosuvastatin 10 mg tablet (Crestor) 10 mg PO DAILY #90 tabs 09/06/21 albuterol sulfate 90 mcg/actuation 2 puff inhalation Q4-6H PRN 01/21/22 aerosol inhaler (ProAir HFA) shortness of breath or wheezing #8.5 grams fluticasone propionate 50 1 spray intranasal DAILY #16 grams 01/27/23 mcg/actuation nasal spray,suspension tqxuudardo-auflegedektna-cackglay 1 tab PO Q6H PRN pain #90 tabs 03/31/22 50 mg-325 mg-40 mg tablet oxycodone-acetaminophen 5 mg-325 1 tab PO TID PRN pain (scale score 04/25/22 mg tablet 7-10) 30 days #90 tabs levetiracetam 500 mg tablet 500 mg PO BID #20 tabs 05/02/22 (Roweepra) levetiracetam 500 mg tablet 500 mg PO Q12H #30 tabs 05/13/22 (Keppra) Allergies Allergy/AdvReac Type Severity Reaction Status Date / Time Iodinated Contrast Media Allergy Intermediate HIVES Verified 05/08/22 12:57 [Iodinated Contrast Media - IV Dye] ketorolac [From Toradol] Allergy Intermediate localized Verified 05/08/22 12:57 redness/swelling Review of Systems Review of Systems: Pertinent positives and negatives as stated in HPI [facility] Past Medical History Source: nursing notes reviewed Medical History Abscess or cellulitis of knee Allergic rhinitis Anemia Anxiety with depression Arthritis Asthma Back pain Bunion of left foot Calf pain Cellulitis Cervical radiculopathy Cervical spondylosis with radiculopathy Cervical strain Chronic sinusitis Colon polyps COVID-19 vaccine administered Depression Fatty liver GERD (gastroesophageal reflux disease) Hematoma following procedure Herpes Hyperlipidemia Hypotension Incisional pain Labral tear of right hip joint Malabsorption due to intolerance, not elsewhere classified Migraines Neck pain Neutropenia Postconcussion syndrome Postlaminectomy syndrome Postoperative bleeding from incision Sacroiliitis Seroma due to trauma Skin laxity Spinal stenosis Syncope Surgical History H/O colonoscopy H/O endoscopy H/O laminectomy History of appendectomy History of endometrial ablation History of hip surgery Hx of abdominal surgery Hx of spinal fusion S/P bilateral foot surgery S/P laparoscopic sleeve gastrectomy S/P laparoscopic sleeve gastrectomy S/P panniculectomy S/P panniculectomy S/P plastic surgery S/P tonsillectomy Status post bariatric surgery Family History Family History Father No problems noted. Mother Cervical spine tumor Brother No problems noted. Brother No problems noted. Brother No problems noted. Brother No problems noted. Sister Mental health disorder Son No problems noted. Daughter No problems noted. Social History Social History Household Members: Spouse Housing: House Are you a primary resident care spec to a significant other at home: No Do you presently have visiting nurse or other home services: No Alcohol intake: never Patient Tobacco Use Status: Former Tobacco user Second Hand Smoke Exposure: No Substance Use Type: Marijuana Advance Directives: Yes Advance Directives on File: Yes Advance Directives Date on File: 08/28/21 service: No Current occupational status: disabled Cognitive needs: No Hearing needs: No Vision needs: No Physical Exam ED Vital Signs: Vital Signs - 24 hr 05/13/22 13:20 05/13/22 13:25 05/13/22 13:25 Temperature 97.9 F Pulse Rate 63 61 66 Respiratory Rate 16 Blood Pressure 117/60 110/62 105/50 L Pulse Oximetry 97 Oxygen Delivery Method Room Air 05/13/22 13:28 05/13/22 15:57 Temperature 97.6 F Pulse Rate 70 65 Respiratory Rate 15 Blood Pressure 90/36 L 121/55 L Pulse Oximetry 98 Oxygen Delivery Method Room Air BMI result Body Mass Index 25.2 VITAL SIGNS: Reviewed. GENERAL: Well developed, well nourished, in no acute distress. HEAD: Normocephalic/atraumatic EYES: PERRLA, EOMI, no nystagmus LUNGS: Normal breath sounds. No adventitious sounds or accessory muscle use. SpO2<97> CARDIOVASCULAR: Regular rate and rhythm without noted murmurs ABDOMEN: Soft, non-tender, non-distended with bowel sounds. MUSCULOSKELETAL: No tenderness, deformities, or effusions noted on gross inspection. EXTREMITIES: No cyanosis, clubbing or edema. SKIN: Inspection of the skin reveals no rashes, ulcerations, jaundice, pallor, or petechiae. NEUROLOGIC: Alert and oriented x 4. Strength and sensation to light touch were grossly intact x 4, no facial asymmetry, no pronator drift, cranial nerves 2-12 are grossly intact, patient denies dizziness on head flexion. Medications Administered Discontinued Medications Generic Name Dose Route Start Last Admin Trade Name Freq PRN Reason Stop Dose Admin Sodium Chloride 1,000 mls @ 999 mls/hr 05/13/22 14:00 05/13/22 14:03 Ns IV 05/13/22 15:00 999 mls/hr .Q1H1M HAY Administration Levetiracetam 1,000 mg 05/13/22 15:49 05/13/22 16:03 Levetiracetam 1,000 Mg Tablet PO 05/13/22 15:50 1,000 mg ONCE ONE Administration Medical Decision Making Medical Decision Making MDM Narrative: 62-year-old female with history and clinical presentation of seizures, reviewed prior imaging studies which do not elucidate any further pathology, however it seems that on follow-up with Dr. Evans her EEG may demonstrate abnormalities and she was started on Keppra. I reviewed all investigations here and there is no evidence of acute infection, anemia, electrolyte abnormalities to better explain patient's presentation at the neurology office. Patient is not currently post ictal. 1523: I discussed the case further with Dr. Evans and reviewed the results, patient's initial presentation and her complaints of the dizziness for 2 days as well. He agrees with Keppra loading and states that it is not necessary at this time to proceed with MRI the and he will follow-up on the patient and recommends Keppra twice a day. All results and findings discussed with the patient bedside she is otherwise discharged home in stable condition. Differential Diagnosis Please see the discussion above Consult Healthcare Provider Management of the patient was discussed with: Regulatory Affairs Specialist [email or web address]: Please see the above for details of the discussion. Lab Data Please see the discussion above 05/13/22 13:18 05/13/22 13:18 Labs: Lab Results 05/13/22 05/13/22 05/13/22 Range/Units 13:18 13:18 13:18 WBC 4.2 L (4.8-10.8) X10*3/uL RBC 3.76 L (4.20-5.50) X10*6/uL Hgb 12.2 (12.0-16.0) g/dl Hct 35.7 L (37.0-47.0) % MCV 94.9 (80.0-98.0) fL MCH 32.4 (27.0-33.0) pg MCHC 34.2 (31.0-35.0) g/dl RDW 12.9 (11.0-16.0) % Plt Count 228 (160-400) X10*3/uL MPV 9.6 (9.4-12.3) fL Immature Gran % (Auto) 0.0 (0.0-0.4) % Neut % (Auto) 42.1 L (45-73) % Lymph % (Auto) 44.5 H (20-40) % [place] % (Auto) 10.5 (2-11) % Eos % (Auto) 2.2 (0-4) % Baso % (Auto) 0.7 (0-2) % Lymph # (Auto) 1.9 (1.2-4.9) X10*3/uL [place] # (Auto) 0.4 (0.1-1.2) X10*3/uL Eos # (Auto) 0.1 (0.0-0.4) X10*3/uL Baso # (Auto) 0.0 (0.0-0.2) X10*3/uL Abs Immat Gran (auto) 0.00 (0.00-0.03) X10*3/uL Absolute Neuts (auto) 1.8 L (2.0-8.3) x10*3/uL Absolute Nucleated RBC 0.000 (0.0-0.012) X10*3/uL Nucleated RBC % (auto) 0.0 (0.0-0.2) /100WBC PT 10.3 (10.0-13.1) SEC INR 0.9 (0.9-1.1) Sodium 140 (135-145) mmol/L Potassium 4.3 (3.3-5.1) mmol/L Chloride 106 (96-108) mmol/L Carbon Dioxide 27 (22-29) mmol/L Anion Gap 11 L (12-20) BUN 22 H (9-16) mg/dL Creatinine 0.70 (0.5-1.4) mg/dL Estim Creat Clear Calc 82.0 Estimated GFR > 60 Random Glucose 91 (60-115) mg/dL Calcium 9.1 (8.4-10.2) mg/dL Magnesium 2.2 (1.6-2.6) mg/dL Total Bilirubin 0.4 (0.0-1.0) mg/dL AST 31 (5-31) U/L ALT 35 H (0-31) U/L Alkaline Phosphatase 97 (39-117) U/L Troponin I High Sens (<3.5-17.0) ng/L Total Protein 6.4 L (6.5-8.0) g/dL Albumin 4.2 (3.5-5.0) g/dL COVID-19 (PIETER) (Negative) COVID-19 Clin Com 05/13/22 05/13/22 Range/Units 13:18 14:37 WBC (4.8-10.8) X10*3/uL RBC (4.20-5.50) X10*6/uL Hgb (12.0-16.0) g/dl Hct (37.0-47.0) % MCV (80.0-98.0) fL MCH (27.0-33.0) pg MCHC (31.0-35.0) g/dl RDW (11.0-16.0) % Plt Count (160-400) X10*3/uL MPV (9.4-12.3) fL Immature Gran % (Auto) (0.0-0.4) % Neut % (Auto) (45-73) % Lymph % (Auto) (20-40) % [place] % (Auto) (2-11) % Eos % (Auto) (0-4) % Baso % (Auto) (0-2) % Lymph # (Auto) (1.2-4.9) X10*3/uL [place] # (Auto) (0.1-1.2) X10*3/uL Eos # (Auto) (0.0-0.4) X10*3/uL Baso # (Auto) (0.0-0.2) X10*3/uL Abs Immat Gran (auto) (0.00-0.03) X10*3/uL Absolute Neuts (auto) (2.0-8.3) x10*3/uL Absolute Nucleated RBC (0.0-0.012) X10*3/uL Nucleated RBC % (auto) (0.0-0.2) /100WBC PT (10.0-13.1) SEC INR (0.9-1.1) Sodium (135-145) mmol/L Potassium (3.3-5.1) mmol/L Chloride (96-108) mmol/L Carbon Dioxide (22-29) mmol/L Anion Gap (12-20) BUN (9-16) mg/dL Creatinine (0.5-1.4) mg/dL Estim Creat Clear Calc Estimated GFR Random Glucose (60-115) mg/dL Calcium (8.4-10.2) mg/dL Magnesium (1.6-2.6) mg/dL Total Bilirubin (0.0-1.0) mg/dL AST (5-31) U/L ALT (0-31) U/L Alkaline Phosphatase (39-117) U/L Troponin I High Sens < 3.5 (<3.5-17.0) ng/L Total Protein (6.5-8.0) g/dL Albumin (3.5-5.0) g/dL COVID-19 (PIETER) Negative (Negative) COVID-19 Clin Com See Note Independent Interpretation I performed an independent interpretation of an: EKG Interpretation: Normal sinus rhythm, HR-69, no STEMI, LA/QRS/QTC are within normal limits. External Record Review External record reviewed: Outpatient record and Prior outpatient labs Discharge Plan Discharge Clinical Impression: Seizure Patient Disposition: Home, Self-Care Additional Instructions: 1. Resume all home medications as prescribed. 2. Follow-up with your neurologist as well as your PCP. Return to the ER for any worsening symptoms. Prescriptions: New levetiracetam [Keppra] 500 mg tablet 500 mg PO Q12H Qty: 30 0RF No Action albuterol sulfate [ProAir HFA] 90 mcg/actuation HFA aerosol inhaler 2 puff inhalation Q4-6H PRN (Reason: shortness of breath or wheezing) Qty: 8.5 6RF fluticasone propionate 50 mcg/actuation spray,suspension 1 spray intranasal DAILY Qty: 16 5RF Rx Instructions: administer into each nostril eqzipuavtf-igmofqgldouoz-aubi 50-325-40 mg tablet 1 tab PO Q6H PRN (Reason: pain) Qty: 90 0RF levetiracetam [Roweepra] 500 mg tablet 500 mg PO BID Qty: 20 0RF gabapentin 600 mg tablet 600 mg PO BID methocarbamol 750 mg tablet 1 tab PO TID fluticasone furoate-vilanterol [Breo Ellipta] 200-25 mcg/dose Blister With Device 1 inh INHALATION DAILY rosuvastatin [Crestor] 10 mg tablet 10 mg PO DAILY Qty: 90 2RF clonazepam 1 mg tablet 1 mg PO BID quetiapine 100 mg tablet 100 mg PO BEDTIME quetiapine 25 mg tablet 25 mg PO DAILY Bariatric Multivitamins 45 mg iron- 800 mcg-120 mcg capsule 1 cap PO DAILY oxycodone-acetaminophen 5-325 mg tablet 1 tab PO TID MDD 3 PRN (Reason: pain (scale score 7-10)) 30 Days Qty: 90 0RF Rx Instructions: Partial Fill upon patient request. lidocaine 5 % adhesive patch,medicated 1 patch topical DAILY 30 Days Qty: 30 3RF Rx Instructions: leave on most painful area for up to 12 hrs brimonidine 0.2 % drops 1 drp ophthalmic (eye) BID paroxetine HCl 40 mg tablet 40 mg PO BEDTIME fludrocortisone 0.1 mg tablet 0.1 mg PO DAILY Referrals: Corinne Figueroa MD [Primary Care Provider] - Sweta Evans MD [Physician] -
[2022-05-13 13:46] LABS: Alanine Aminotransferase 35 U/L (0-31); Albumin Level 4.2 g/dL (3.5-5.0); Alkaline Phosphatase 97 U/L (39-117); Anion Gap 11 (12-20); Aspartate Amino Transferase 31 U/L (5-31); Bilirubin Total 0.4 mg/dL (0.0-1.0); Blood Urea Nitrogen 22 mg/dL (9-16); Calcium 9.1 mg/dL (8.4-10.2); Carbon Dioxide 27 mmol/L (22-29); Chloride 106 mmol/L (96-108); Estimated Glomerular Filt Rate > 60; Glucose Random 91 mg/dL (60-115); Magnesium 2.2 mg/dL (1.6-2.6); Potassium 4.3 mmol/L (3.3-5.1); Sodium 140 mmol/L (135-145); Total Protein 6.4 g/dL (6.5-8.0)
[2022-05-13 13:50] LABS: Troponin-I High Sensitivity < 3.5 ng/L (<3.5-17.0)
[2022-05-13] MEDS: 0.9 % Sodium Chloride 1,000 ML 999 ML IV (14:03)
[2022-05-13 14:58] LABS: COVID-19 Test Negative (Negative); IDNOW Serial# BCCEAD1C
[2022-05-13 15:57] VITALS: BP 121/55; PULSE 65; RESP 15; TEMP 36.4; O2SAT 98
[2022-05-13] MEDS: levETIRAcetam 1,000 MG TABLET 1000 MG PO (16:03)
== END 2022-05-13 17:23 | disposition home or self-care (01) ==
PROVIDERS: Emergency Provider Student in an Organized Health Care Education/Training Program; PCP Internal Medicine
DX: R56.9 Unspecified convulsions (principal); R55 Syncope and collapse; Z87.891 Personal history of nicotine dependence; Z20.822 Contact with and (suspected) exposure to COVID-19; Z20.828 Contact with and (suspected) exposure to other viral communicable diseases; Z79.899 Other long term (current) drug therapy
CPT/HCPCS: 36415; 80053; 83735; 84484; 85025; 85610; 87635; 93005; 99283; 99284

== ENCOUNTER 2022-05-15 08:10 | Outpatient (REF) | payer OTHER, SELFPAY ==
--- NOTE | ~2022-05-15 | XR_ITS ---
EXAMINATION: XR HAND, LEFT CLINICAL INFORMATION: Left hand pain. COMPARISON: Wrist study of 05/02/2022 and hand study of 03/15/2021. TECHNIQUE: PA, lateral, and oblique views of the left hand. FINDINGS: There is no significant change in alignment or displacement of minimally displaced fracture base of the 5th metacarpal. The fracture line is not as well seen as on prior study and there does appear to be some degree of bony union. No new acute fracture of the left hand is identified. The joint spaces are maintained. XR/XR hand LT min 3V IMPRESSION: Healing fracture of the base of the 5th metacarpal without significant change in alignment.
== END 2022-05-15 08:11 | disposition home or self-care (01) ==
LOC: HO.HOSX 08:10
PROVIDERS: Visit Provider Physician Assistant
DX: S62.337A Displaced fracture of neck of fifth metacarpal bone, left hand, initial encounter for closed fracture (principal); S60.212A Contusion of left wrist, initial encounter
CPT/HCPCS: 26600; 29085; 73130; 99202

== ENCOUNTER → 2022-05-21 08:24 | Outpatient (BNVA) | payer OTHER, SELFPAY | PROVIDERS: PCP Internal Medicine; Visit Provider Nurse Practitioner Family | DX: Z13.89 Encounter for screening for other disorder (principal) ==

== ENCOUNTER → 2022-05-22 12:43 | Day surgery (SDC) | payer OTHER, SELFPAY ==
[2022-05-16 12:59] VITALS: BMI 21.2
[2022-05-22 12:54] VITALS: BMI 21.9
[2022-05-22 12:59] VITALS: BP 116/41; PULSE 69; RESP 16; TEMP 36.3; O2SAT 97
[2022-05-22] MEDS: Lactated Ringers 1,000 ML 50 ML IVCONT (13:15)
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
[2022-05-22 14:55] VITALS: BP 125/45; PULSE 64; RESP 16; O2SAT 97
--- NOTE | 2022-05-22 14:59 | P.BOP_ITS ---
Brief Operative Note Date of Service: 05/22/22 Pre-op diagnosis: Left chest wall pain, right greater trochanteric bursitis, right sacroiliac joint dysfunction, myofascial pain syndrome Post-op diagnosis: same Procedure: Left 9th, 10th, 11th intercostal nerve block, right greater trochanteric injection, right sacroiliac ligaments and gluteus elvira trigger point injection Implants: None Surgeon: Colton Chun MD Anesthesia: local Was an [employer] Instructor used for this Procedure?: No Estimated blood loss (mL): 0 Pathology: none sent Condition: stable Disposition: same day
--- NOTE | 2022-05-22 14:59 | W.PM.OPN ---
Operative Note Operative Note Date of Service: 05/22/22 Narrative: Trigger Point Injection Pre-procedure diagnosis: Myofascial pain Post-procedure diagnosis: Myofascial pain Site and number of trigger points: Right sacroiliac ligament, right gluteus elvira muscle Solution: Total volume administered 6 mL 0.25% ropivacaine ml The procedure, its benefits, and its risks were explained to the patient and all questions were answered. A pulse oximeter monitor was attached and the patient was monitored throughout the procedure. Prior to the start of the procedure, a ?time out? was performed to confirm correct patient, procedure, and laterality. Trigger points were identified by manual palpation and marked. The patient was placed in the prone position. The skin was cleaned with Chloraprep. A 5/8 inch 25 G needle was used. Each of the trigger points were approximated and elevated in the direction away from the body. Dry needling then took place for five seconds. Approximately 0.5 ml to 1 ml of injectate was delivered to the trigger point followed by dry needling for five seconds. This process was repeated at each trigger point site. The patient tolerated the procedure well. Post-procedure, breath sounds were equal at both sides of the chest. The patient tolerated the procedure well, without complication. The patient denied any numbness, paresthesias, or weakness. Greater Trochanteric Bursa Injection, Right With the patient in the prone position, the skin was prepped with Chloroprep, and draped in a sterile fashion. With the use of ultrasound the greater trochanter was identified. A 21-gauge 80 mm echo stim needle was then advanced toward the trochanteric bursa. Once in position, and after negative aspiration, 5 mL of ropivacaine 0.25% was injected. There was no evidence of paresthesias throughout needle placement. The stylet was replaced and then the needle was withdrawn. The patient tolerated the procedure well and there was no evidence of procedural complications. Left 9th, 10th, 11th intercostal nerve blocks, ultrasound-guided With the patient in prone position, the left posterior chest wall area was prepped with ChloraPrep. Using ultrasound, the appropriate landmarks including the respective ribs and pleura were identified. The skin overlying the target was anesthetized with 0.5% lidocaine. A 21 gauge 50 mm echostim needle was advanced under sonographic guidance to the vicinity of the intercostal nerves. Aspiration was negative for heme and air. 5 cc of ropivacaine 0.25%?was injected around each of the nerve. The needles were removed, skin cleansed and a sterile bandage was applied. The patient tolerated the procedures well and no complications were encountered. Following the procedures the patient's vital signs were stable. The patient was discharged home in good condition with post-procedural instructions. Time Out: Immediately prior to the procedure, the following was verbally confirmed that there is a signed consent form and that the correct patient, planned procedure, site and side are consistent with documentation and that necessary equipment and/or blood products are available prior to the start of the case. Complications: none EBL: <1 cc
[2022-05-22] MEDS: oxyCODONE HCl Immed Release 5 MG TABLET PO (15:04)
--- NOTE | 2022-05-22 15:15 | PC.NURSE ---
SMALL SCANT STAINING TO LEFT UPPER RIB CAGE AREA INJECTION SITES. FIVE IN TOTAL ON HER BACK. IV REMOVED. DRESSED SELF. IN WHEELCHAIR AND AWAITING RIDE..
--- NOTE | 2022-05-22 15:23 | PC.NURSE ---
DISCHARGED FROM [facility] AT 1523 IN A WHEELCHAIR. 910 PAIN REMAINS. GIOVANNI WATER PO INTAKE. DENIES NUMBNESS OR TINGLING TO ALL EXTREMITIES. JOSEFINA CALLED FOR A RIDE TATIANA [phone].
== END | disposition home or self-care (01) ==
PROVIDERS: PCP Internal Medicine; Visit Provider Internal Medicine
PROC: (CPT 20611; principal; 2022-05-22 14:10)
PROC: (CPT 20552; 2022-05-22 14:10)
DX: M70.61 Trochanteric bursitis, right hip (principal); M46.1 Sacroiliitis, not elsewhere classified; M79.18 Myalgia, other site; M96.1 Postlaminectomy syndrome, not elsewhere classified; R07.89 Other chest pain; J45.909 Unspecified asthma, uncomplicated; F32.A Depression, unspecified; F07.81 Postconcussional syndrome; I95.9 Hypotension, unspecified; E78.5 Hyperlipidemia, unspecified; B00.9 Herpesviral infection, unspecified; D70.9 Neutropenia, unspecified; Z79.84 Long term (current) use of oral hypoglycemic drugs; Z91.041 Radiographic dye allergy status; Z88.8 Allergy status to other drugs, medicaments and biological substances; Z98.890 Other specified postprocedural states; Z91.040 Latex allergy status; F12.90 Cannabis use, unspecified, uncomplicated; Z79.891 Long term (current) use of opiate analgesic; Z79.899 Other long term (current) drug therapy; Z87.891 Personal history of nicotine dependence
CPT/HCPCS: 20611; 64420; 64421 ×2; 20552; J1020; J1040; J2250; J2795; J3010

== ENCOUNTER 2022-05-28 09:37 | Outpatient (REF) | payer OTHER, SELFPAY | END 2022-05-28 09:38 | disposition home or self-care (01) | LOC: HO.HOSX 09:37 | PROVIDERS: Visit Provider Orthopaedic Surgery | DX: Z13.89 Encounter for screening for other disorder (principal) ==

== ENCOUNTER 2022-05-29 15:10 | Outpatient (REF) | payer OTHER, SELFPAY ==
--- NOTE | ~2022-05-29 | XR_ITS ---
EXAMINATION: XR HAND, LEFT CLINICAL INFORMATION: Fracture COMPARISON: Previous x-ray most recent April 2022 TECHNIQUE: PA, lateral, and oblique views of the left hand. FINDINGS: Oblique fracture of the base and proximal shaft of the fifth metacarpal bone. Alignment appears unchanged. Minimal increased bony callus formation. No other fracture. Osteopenia. XR/XR hand LT min 3V IMPRESSION: Healing fifth metacarpal fracture.
== END 2022-05-29 15:11 | disposition home or self-care (01) ==
LOC: HO.HOSX 15:10
PROVIDERS: Visit Provider Orthopaedic Surgery
DX: S62.317D Displaced fracture of base of fifth metacarpal bone, left hand, subsequent encounter for fracture with routine healing (principal)
CPT/HCPCS: 73130

== ENCOUNTER → 2022-06-18 08:50 | Outpatient (BNVA) | payer OTHER, SELFPAY | PROVIDERS: PCP Internal Medicine; Visit Provider Nurse Practitioner Family | DX: Z51.81 Encounter for therapeutic drug level monitoring (principal); M96.1 Postlaminectomy syndrome, not elsewhere classified; M79.642 Pain in left hand; M53.3 Sacrococcygeal disorders, not elsewhere classified; M47.27 Other spondylosis with radiculopathy, lumbosacral region; R56.9 Unspecified convulsions; G89.4 Chronic pain syndrome | CPT/HCPCS: 99212 ==

== ENCOUNTER 2022-06-26 06:54 | Outpatient (REF) | payer OTHER, SELFPAY ==
--- NOTE | ~2022-06-26 | XR_ITS ---
EXAMINATION: XR HAND, LEFT CLINICAL INFORMATION: Pain in left hand COMPARISON: 05/29/2022 and 05/15/2022 TECHNIQUE: PA, lateral, and oblique views of the left hand. FINDINGS: There is interval healing of spiral fracture of mid shaft of fifth metacarpal bone with anatomical alignment of fragments. The fracture line is still visualized. There is faint callus formation. Soft tissues unremarkable. XR/XR hand LT min 3V IMPRESSION: Interval healing of fracture of the midshaft of fifth metacarpal bone on the left
== END 2022-06-26 06:55 | disposition home or self-care (01) ==
LOC: HO.HOSX 06:54
PROVIDERS: Visit Provider Orthopaedic Surgery
DX: S62.317D Displaced fracture of base of fifth metacarpal bone, left hand, subsequent encounter for fracture with routine healing (principal); M25.632 Stiffness of left wrist, not elsewhere classified
CPT/HCPCS: 73130

== ENCOUNTER 2022-07-18 09:51 | Outpatient (REF) | payer OTHER, SELFPAY ==
--- NOTE | ~2022-07-18 | MM_ITS ---
EXAMINATION: MM SCREENING DIGITAL BREAST TOMOSYNTHESIS, BILATERAL CLINICAL INFORMATION: Screening. Asymptomatic. The lifetime risk of breast cancer based on the Tyrer-Cuzick Model is 11%. COMPARISON: Mammography: 04/30/2021, 04/15/2020, 05/20/2018 TECHNIQUE: Digital breast tomosynthesis is performed in both the craniocaudal and mediolateral oblique views along with computer-aided detection (CAD). Synthesized 2D images are generated from the tomosynthesis. FINDINGS: There are scattered areas of fibroglandular density (ACR BI-RADS breast composition Category b). There are no significant masses, abnormal calcifications, or other abnormalities. No architectural abnormality. The axilla and skin contours are unremarkable. MM/MM tomosynthesis screening BI IMPRESSION: No mammographic evidence of malignancy. ASSESSMENT: BI-RADS 1: Negative RECOMMENDATION: Routine annual mammography screening. This patient's information was entered into a reminder system with a target due date for their next mammogram.
== END 2022-07-18 09:52 | disposition home or self-care (01) ==
LOC: HO.MAMMO 09:51
PROVIDERS: Visit Provider Internal Medicine
DX: Z12.31 Encounter for screening mammogram for malignant neoplasm of breast (principal)
CPT/HCPCS: 77063; 77067

== ENCOUNTER 2022-07-24 06:05 | Outpatient (REF) | payer OTHER, SELFPAY ==
--- NOTE | ~2022-07-24 | FL_ITS ---
EXAMINATION: XR FLUOROSCOPY WITH IMAGES CLINICAL INFORMATION: Sacrococcygeal disorders, not elsewhere classified. Right SI joint injection for pain. COMPARISON: None available. TECHNIQUE: Fluoroscopy Supervised By: Dr. Chun. Fluoroscopy Time: 0.1 minutes. Cumulative Dose: 5.11 mGy. DAP: 0.769 Gycm2. Images: 2. FINDINGS: Images demonstrate needle placement over the right sacroiliac joint. FL/FL guidance in treatment room IMPRESSION: Fluoroscopic guidance for right sacroiliac joint injection.
== END 2022-07-24 06:06 | disposition home or self-care (01) ==
LOC: CF 06:05
PROVIDERS: Visit Provider Internal Medicine
DX: M53.3 Sacrococcygeal disorders, not elsewhere classified (principal)
CPT/HCPCS: 27096; J1020; J1040

== ENCOUNTER → 2022-07-25 09:41 | Outpatient (BNVA) | payer OTHER, SELFPAY | PROVIDERS: PCP Internal Medicine; Visit Provider Orthopaedic Surgery | DX: M25.512 Pain in left shoulder (principal); R56.9 Unspecified convulsions; R53.1 Weakness; G89.29 Other chronic pain; Z98.1 Arthrodesis status | CPT/HCPCS: 20610; 99212; J1100 ==

== ENCOUNTER 2022-08-21 08:45 | Outpatient (REF) | payer OTHER, SELFPAY ==
--- NOTE | ~2022-08-21 | FL_ITS ---
EXAMINATION: XR FLUOROSCOPY WITH IMAGES CLINICAL INFORMATION: Pain COMPARISON: None available. TECHNIQUE: Fluoroscopy Supervised By: Dr. Chun. Fluoroscopy Time: 0.3 minutes. Cumulative Dose: 6.93 mGy. DAP: 1.21 Gycm2. Images: 5. FINDINGS: Needle placement lateral to the greater trochanteric bursa with injection of contrast. Subsequent needle placement at the level of the lower sacrum. FL/FL guidance in treatment room IMPRESSION: Fluoroscopy for pain management procedure.
--- NOTE | ~2022-08-21 | FL_ITS ---
EXAMINATION: XR FLUOROSCOPY WITH IMAGES CLINICAL INFORMATION: Pain COMPARISON: None available. TECHNIQUE: Fluoroscopy Supervised By: Dr. Chun. Fluoroscopy Time: 0.3 minutes. Cumulative Dose: 6.93 mGy. DAP: 1.21 Gycm2. Images: 5. FINDINGS: Needle placement lateral to the greater trochanteric bursa with injection of contrast. Subsequent needle placement at the level of the lower sacrum. FL/FL guidance in treatment room IMPRESSION: Fluoroscopy for pain management procedure.
== END 2022-08-21 08:46 | disposition home or self-care (01) ==
LOC: CF 08:45
PROVIDERS: Visit Provider Internal Medicine
DX: M96.1 Postlaminectomy syndrome, not elsewhere classified (principal); M70.61 Trochanteric bursitis, right hip; M47.27 Other spondylosis with radiculopathy, lumbosacral region
CPT/HCPCS: 20610; 62323; J1040

== ENCOUNTER 2022-08-29 13:33 | Outpatient (AMB) | payer OTHER, SELFPAY ==
[2022-08-29 13:33] VITALS: BMI 25.1
--- NOTE | 2022-08-29 13:33 | A.OFFVIS_ITS ---
Intake Vital Signs 08/29/22 13:33 Height 5 ft 7 in Weight 160 lb BMI 25.1 Intake Visit Reasons: s/p R. 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 Chun. Patient reports Caudal BETSEY with cautheter was most helpful, providing her ongoing 80% pain relief for radicular back symptoms with improvement in her daily functions and activities. She reports no pain relief with right GTB and SIJ injections and continues to endorse right lateral hip pain. No prior hip imaging is noted per EMR review, will send patient for hip with pelvic view xrays. Denies any recent cough, cold, infection, fever or other significant changes in medical history since last office visit. Patient denies any bladder or bowel incontinence or saddle anesthesia. [facility] Medical History (Updated 08/29/22 @ 22:14 by AMY Ribera) Abscess or cellulitis of knee Allergic rhinitis Anemia Anxiety with depression Arthritis Asthma Back pain Bunion of left foot Calf pain Cellulitis Cervical radiculopathy Cervical spondylosis with radiculopathy Cervical strain Chronic sinusitis Colon polyps COVID-19 vaccine administered Depression Fatty liver GERD (gastroesophageal reflux disease) Hematoma following procedure Herpes Hyperlipidemia Hypotension Incisional pain Labral tear of right hip joint Malabsorption due to intolerance, not elsewhere classified Migraines Neck pain Neutropenia Postconcussion syndrome Postlaminectomy syndrome Postoperative bleeding from incision Sacroiliitis Seizure disorder Seroma due to trauma Skin laxity Spinal stenosis Syncope Surgical History H/O colonoscopy H/O endoscopy H/O laminectomy History of appendectomy History of endometrial ablation History of hip surgery Hx of spinal fusion S/P bilateral foot surgery S/P laparoscopic sleeve gastrectomy S/P panniculectomy S/P plastic surgery S/P tonsillectomy Family History Father No problems noted. Mother Cervical spine tumor Brother No problems noted. Brother No problems noted. Brother No problems noted. Brother No problems noted. Sister Mental health disorder Son No problems noted. Daughter No problems noted. Social History Household Members: Spouse Housing: House Are you a primary managed care manager to a significant other at home: No Do you presently have visiting nurse or other home services: No Alcohol intake: never Patient Tobacco Use Status: Former Tobacco user Second Hand Smoke Exposure: No Substance Use Type: Marijuana Advance Directives Date on File: 08/28/21 service: No Current occupational status: disabled Cognitive needs: No Hearing needs: No Vision needs: No Review of Systems Const All systems reviewed & are unremarkable except as noted in HPI and below ENT Reports Normal hearing present Neuro Reports Normal hearing present and Denies confusion Psych Denies confusion Physical Exam Vital Signs: BMI result Body Mass Index 25.1 Const General: cooperative, alert and awake; No confusion Orientation/consciousness: patient oriented x3 and No confusion Resp Effort & Inspection: able to speak in complete sentences, no audible wheezes and no cough Neuro General: patient oriented x3 and No confusion Cranial nerves: Yes Normal hearing present Cognition (Neuro): normal cognition Psych Mental Status: mental status grossly normal Speech and movement: Clear speech present Affect: normal affect Attitude: cooperative Thought process: Normal thought process present Thought content: Normal thought content present and No Depressive thoughts present Insight: Good insight present (Psych) Judgement: Good judgement present (Psych) Results Reviewed Results Reviewed: XR LUMBOSACRAL SPINE 09/09/2019 CLINICAL INFORMATION: Fall, trauma, pain COMPARISON: Lumbar radiographs 06/24/2017, MRI lumbar spine 09/03/2019 FINDINGS: There is levocurvature mid to lower lumbar spine which could be positional. There is normal lumbar lordosis. The vertebral bodies are normal in height and there is no lumbar vertebral compression, visible fracture, or spondylolisthesis. There are 5 lumbar nonrib-bearing vertebrae with hypoplastic 12th ribs and bilateral sacralization L5. There has been prior hemilaminectomy L4-L5. Degenerative disc changes are again seen at L4-L5 with disc narrowing, vacuum disc, and mild vertebral spurring. Multiple surgical clips upper abdomen. Bowel gas unremarkable. IMPRESSION: 1. No acute bony abnormality. 2. Degenerative disc changes L4-L5. Prior L4-L5 hemilaminectomy. 3. Transitional vertebrae L5 with bilateral sacralization. Hypoplastic 12th ribs MR LUMBAR SPINE WITHOUT AND WITH CONTRAST 09/03/2019 CLINICAL INFORMATION: Postlaminectomy syndrome with surgery less than 10 years ago. FINDINGS: Transitional anatomy. There are 5 nonrib-bearing lumbar-type vertebral bodies and L5 is partially sacralized, sharing pseudoarticulations with the sacrum on both sides. Please correlate with plain films prior to any percutaneous or surgical intervention. Grade 1 retrolisthesis of L2 on L3 and L3 on L4 and L4 on L5. There is moderate disc volume loss at L4-L5 and there is disc desiccation at L2-L3, L3-L4, and L4-L5. Modic type endplate signal changes at L4-L5. No additional bone marrow edema. No acute fractures. No pathologic enhancement along the cauda equina nerve roots. L1-L2: Disc contour is normal. There is mild to moderate bilateral facet arthropathy. No central canal stenosis and no foraminal stenosis. L2-L3: Grade 1 retrolisthesis. Diffuse annular disc bulge and moderate bilateral facet arthropathy and ligamentum flavum thickening. No central canal stenosis. Mild foraminal encroachment bilaterally. L3-L4: Grade 1 retrolisthesis. Diffuse annular disc bulge and moderate bilateral facet arthropathy and ligamentum flavum thickening. Findings in concert result in moderate to severe central canal stenosis, right greater than left subarticular zone stenosis with mass effect on the traversing right greater than left L4 nerve roots, and far lateral disc osteophyte protrusions contact the extraforaminal L3 nerve roots bilaterally. L4-L5: Grade 1 retrolisthesis. There are left hemilaminectomy and microdiscectomy changes. No appreciable enhancing granulation/scar tissue. There is a recurrent or residual broad-based left paracentral disc protrusion that compresses the traversing left greater than right L5 nerve roots within the subarticular zones. Mild narrowing of the central canal. Mild to moderate right and mild left foraminal stenosis. L5-S1: Far right greater than left lateral disc osteophyte protrusions, resulting in mass effect on the extraforaminal right L5 nerve root. No central canal stenosis. IMPRESSION: - Transitional anatomy. There are 5 nonrib-bearing lumbar-type vertebral bodies and L5 is partially sacralized, sharing pseudoarticulations with the sacrum on both sides. Please correlate with plain films prior to any percutaneous or surgical intervention. - At L5-S1, a far right lateral disc osteophyte protrusion results in mass effect on the extraforaminal right L5 nerve root. - At L4-L5 there are left hemilaminectomy and microdiscectomy changes. There is a recurrent or residual broad-based left paracentral disc protrusion that compresses the traversing left greater than right L5 nerve roots within the subarticular zones. - At L3-L4, grade 1 retrolisthesis and multifactorial degenerative changes result in moderate to severe central canal stenosis, right greater than left subarticular zone stenosis with mass effect on the traversing right greater than left L4 nerve roots, and far lateral disc osteophyte protrusions contact the extraforaminal L3 nerve roots bilaterally Assessment & Plan Assessment & Plan (1) Trochanteric bursitis of right hip: Code(s): M70.61 - Trochanteric bursitis, right hip (2) Lumbosacral spondylosis with radiculopathy: Code(s): M47.27 - Other spondylosis with radiculopathy, lumbosacral region (3) Right hip pain: Code(s): M25.551 - Pain in right hip (4) Failed back syndrome, lumbar: Code(s): M96.1 - Postlaminectomy syndrome, not elsewhere classified (5) Chronic pain syndrome: Code(s): G89.4 - Chronic pain syndrome (6) Sacroiliitis: Comment: S/p SI joint steroid injection 08/27/19, 12/08/20, 11/16/21 Code(s): M46.1 - Sacroiliitis, not elsewhere classified Plan Patient is status post caudal BETSEY and right GTB injection on 08/21/22 and Right Therapeutic SIJ injection on 07/24/22 providing her ongoing 80% pain relief for radicular back symptoms with improvement in her daily functions and activities. She reports no pain relief with right GTB and SIJ injections and continues to endorse right lateral hip pain. Right hip with pelvic view imaging to assess degree of arthritis. Patient will return to the clinic to discuss results of hip xray findings when it is done and consider interventional therapy as indicated. All questions were answered and patient agreed with the plan. Follow up as needed. I hereby testify that I spent 6 minutes in conversation with this patient as well as with planning and coordinating care for this patient and organizing this note. Orders: Orders XR hip RT w [id number] Today M25.551 - Pain in right hip, M70.61 - Trochanteric bursitis, right hip Telehealth Telehealth Location of provider rendering services: practice address Location of patient: address on file Patient Identification confirmed using: Name, : Yes Telehealth method: voice only Patient verbally consented to treatment: Yes Patient verbally consented to billing insurance company: Yes Patient informed of any privacy concerns related to visit: Yes Minutes spent on Phone/Video with Pt.: 6 Coding Level of Care Code Tele Est Pt Level 3 (57906) Diagnoses Trochanteric bursitis of right hip M70.61 Lumbosacral spondylosis with radiculopathy M47.27 Right hip pain M25.551 Failed back syndrome, lumbar M96.1 Chronic pain syndrome G89.4 Sacroiliitis M46.1
== END 2022-08-29 13:45 | disposition home or self-care (01) ==
LOC: HO.PMC 13:33
PROVIDERS: PCP Internal Medicine; Visit Provider Nurse Practitioner Family
DX: M70.61 Trochanteric bursitis, right hip (principal); M47.27 Other spondylosis with radiculopathy, lumbosacral region; M25.551 Pain in right hip; M96.1 Postlaminectomy syndrome, not elsewhere classified; G89.4 Chronic pain syndrome; M46.1 Sacroiliitis, not elsewhere classified
CPT/HCPCS: 99441

== ENCOUNTER → 2022-08-29 13:33 | Outpatient (BNVA) | payer OTHER, SELFPAY | PROVIDERS: PCP Internal Medicine; Visit Provider Nurse Practitioner Family ==

== ENCOUNTER 2022-10-09 14:26 | Outpatient (AMB) | payer OTHER, SELFPAY ==
--- NOTE | 2022-10-09 14:28 | MHC.OFFVIS ---
Intake Vital Signs 10/09/22 14:29 Height 5 ft 7 in Weight 155 lb BMI 24.3 BP 124/66 Blood Pressure Location Lt brachial Position Sitting Respiration 16 Pulse 68 Pulse Source Pulse Oximeter Pulse Oximetry (%) 97 Oxygen Delivery Method Room Air Intake Visit Reasons: s/p Caudal BETSEY w/ cath 08/21/22 Intake Note: patient comes in for post-op. Allergies Iodinated Contrast Media [Iodinated Contrast Media - IV Dye] Allergy (Intermediate, Verified 10/09/22 14:28) HIVES ketorolac [From Toradol] Allergy (Intermediate, Verified 10/09/22 14:28) localized redness/swelling HPI HPI Comments History of Present Illness Details Therese is in my office today to discuss her painful conditions and for the follow-up. She reported that in the past she was diagnosed with ?cysts in my hip joint ?. She reports that she has pain in the groin. She received caudal epidural steroid injection and right greater trochanter injection on the 08/21/2022. Even though caudal BETSEY was help she reported that she had pain improvement only for 3 weeks. She reported 80% pain improvement for radicular pain. This is not enough for me to continue this procedures in the future.She reported that this procedure was most helpful for her pain. Before that she received therapeutic sacroiliac joint injection done b Dr. Chun. Unfortunately she reported no pain improvement after this procedure. She requests me to send her for hip x-ray to evaluate her condition. I will offer her intra-articular hip injection once we have the results of the hip x-ray. She appears to be interested in neuromodulation. She was explaining to me that she have heard ?some information about placing medication in spinal canal . I suspect the patient has pain pump in mind. I explained to her that in her case pain pump administration could be difficult because the pain is mostly lower sacral and caudal. However I would not mind to try performing this procedure for her. Bro[facility]ure [employer] pain pump was given to the patient today. [facility] Medical History (Updated 10/09/22 @ 14:54 by Arie Patricia MD) Abscess or cellulitis of knee Allergic rhinitis Anemia Anxiety with depression Arthritis Asthma Back pain Bunion of left foot Calf pain Cellulitis Cervical radiculopathy Cervical spondylosis with radiculopathy Cervical strain Chronic sinusitis Colon polyps COVID-19 vaccine administered Depression Fatty liver GERD (gastroesophageal reflux disease) Hematoma following procedure Herpes Hyperlipidemia Hypotension Incisional pain Labral tear of right hip joint Malabsorption due to intolerance, not elsewhere classified Migraines Neck pain Neutropenia Postconcussion syndrome Postlaminectomy syndrome Postoperative bleeding from incision Sacroiliitis Seizure disorder Seroma due to trauma Skin laxity Spinal stenosis Syncope Surgical History H/O colonoscopy H/O endoscopy H/O laminectomy History of appendectomy History of endometrial ablation History of hip surgery Hx of spinal fusion S/P bilateral foot surgery S/P laparoscopic sleeve gastrectomy S/P panniculectomy S/P plastic surgery S/P tonsillectomy Family History Father No problems noted. Mother Cervical spine tumor Brother No problems noted. Brother No problems noted. Brother No problems noted. Brother No problems noted. Sister Mental health disorder Son No problems noted. Daughter No problems noted. Social History Household Members: Spouse Housing: House Are you a primary residential caregiver to a significant other at home: No Do you presently have visiting nurse or other home services: No Alcohol intake: never Patient Tobacco Use Status: Former Tobacco user Second Hand Smoke Exposure: No Substance Use Type: Marijuana Advance Directives Date on File: 08/28/21 service: No Current occupational status: disabled Cognitive needs: No Hearing needs: No Vision needs: No Review of Systems Const All systems reviewed & are unremarkable except as noted in HPI and below ENT Reports Normal hearing present Neuro Reports Normal hearing present and Denies confusion Psych Denies confusion Physical Exam Vital Signs: Last Vital Signs Pulse 68 10/09/22 14:29 Resp 16 10/09/22 14:29 BP 124/66 10/09/22 14:29 Pulse Ox 97 10/09/22 14:29 Oxygen Delivery Method Room Air 10/09/22 14:29 BMI result Body Mass Index 24.3 Const General: cooperative, alert and awake; No confusion Orientation/consciousness: patient oriented x3 and No confusion Resp Effort & Inspection: able to speak in complete sentences, no audible wheezes and no cough Neuro General: patient oriented x3 and No confusion Cranial nerves: Yes Normal hearing present Cognition (Neuro): normal cognition Psych Mental Status: mental status grossly normal Speech and movement: Clear speech present Affect: normal affect Attitude: cooperative Thought process: Normal thought process present Thought content: Normal thought content present and No Depressive thoughts present Insight: Good insight present (Psych) Judgement: Good judgement present (Psych) Assessment & Plan Assessment & Plan (1) Trochanteric bursitis of right hip: Code(s): M70.61 - Trochanteric bursitis, right hip (2) Lumbosacral spondylosis with radiculopathy: Code(s): M47.27 - Other spondylosis with radiculopathy, lumbosacral region (3) Right hip pain: Code(s): M25.551 - Pain in right hip (4) Failed back syndrome, lumbar: Code(s): M96.1 - Postlaminectomy syndrome, not elsewhere classified (5) Chronic pain syndrome: Code(s): G89.4 - Chronic pain syndrome (6) Sacroiliitis: Comment: S/p SI joint steroid injection 08/27/19, 12/08/20, 11/16/21 Code(s): M46.1 - Sacroiliitis, not elsewhere classified (7) Osteoarthritis of right hip: Code(s): M16.11 - Unilateral primary osteoarthritis, right hip Plan Patient is status post caudal BETSEY and right GTB injection on 08/21/22 and Right Therapeutic SIJ injection on 07/24/22 . Caudal BETSEY provided 80% pain relief for radicular back symptoms with improvement in her daily functions and activities. That lasted 3 weeks only. I cannot consider caudal BETSEY repeat T hernandez in the future for her. In the past we performed trochanteric steroid injection for her as well. Today she informed me that she had cysts previously in her right hip joint. I would like to see the x-ray of the hip before I will commit myself for repeat of this injection. She appears to be interested in neuromodulation and particularly in pain pump. I explained to her that it would be difficult to cover her pain with pain pump because her pain is very caudal in nature. However I do not mind to try. I gave her brochure to read about pain pump. If she is interested she will give us a call about this and will send her to psychological evaluation. She also will give us a call about the results of right hip x-ray. In 10 days the reading of the x-ray most likely to be ready. If it is so and there is no red flags in there I will schedule her for right hip injection with steroids. Coding Level of Care Code Est Pt Level 4 (63396) Diagnoses Trochanteric bursitis of right hip M70.61 Lumbosacral spondylosis with radiculopathy M47.27 Right hip pain M25.551 Failed back syndrome, lumbar M96.1 Chronic pain syndrome G89.4 Sacroiliitis M46.1 Osteoarthritis of right hip M16.11
[2022-10-09 14:29] VITALS: BP 124/66; PULSE 68; RESP 16; O2SAT 97; BMI 24.3
== END 2022-10-09 14:53 | disposition home or self-care (01) ==
PROVIDERS: PCP Internal Medicine; Visit Provider Anesthesiology
DX: M70.61 Trochanteric bursitis, right hip (principal); M47.27 Other spondylosis with radiculopathy, lumbosacral region; M25.551 Pain in right hip; M96.1 Postlaminectomy syndrome, not elsewhere classified; G89.4 Chronic pain syndrome; M46.1 Sacroiliitis, not elsewhere classified; M16.11 Unilateral primary osteoarthritis, right hip
CPT/HCPCS: 99214

== ENCOUNTER 2022-10-09 14:26 | Outpatient (REF) | payer OTHER, SELFPAY ==
--- NOTE | ~2022-10-09 | XR_ITS ---
EXAMINATION: XR HIP, RIGHT CLINICAL INFORMATION: Pain in right hip COMPARISON: None available. TECHNIQUE: A frontal radiograph of the pelvis and frontal and frog lateral radiographs of the right hip were acquired. of the right hip. FINDINGS: The bony pelvis is unremarkable. No significant degenerative or proliferative changes are evident in either hip. The sacrum and sacroiliac joints are unremarkable. A clip is noted in the right pelvis. There are degenerative changes in the lower lumbar spine. Aortoiliac atherosclerotic calcifications are noted. XR/XR hip RT w PEL1V IMPRESSION: 1. Unremarkable plain radiographs of the pelvis and right hip. 2. Lower lumbar degenerative disc disease. 3. Aortoiliac atherosclerotic calcifications.
== END 2022-10-09 14:27 | disposition home or self-care (01) ==
LOC: HO.XRAY 14:26
PROVIDERS: PCP Internal Medicine; Visit Provider Anesthesiology
DX: M47.27 Other spondylosis with radiculopathy, lumbosacral region (principal); M25.551 Pain in right hip; G89.4 Chronic pain syndrome; M96.1 Postlaminectomy syndrome, not elsewhere classified; M46.1 Sacroiliitis, not elsewhere classified; M16.11 Unilateral primary osteoarthritis, right hip
CPT/HCPCS: 73502; 99212

== ENCOUNTER 2022-10-24 08:32 | Outpatient (REF) | payer OTHER, SELFPAY ==
[2022-10-24 11:13] LABS: MANUAL DIFF FLAG NO
[2022-10-24 11:27] LABS: Basophils Percent Auto 0.7 % (0-2); Eosinophils Absolute Auto 0.1 X10*3/uL (0.0-0.4); Eosinophils Percent Auto 1.4 % (0-4); Hematocrit 38.1 % (37.0-47.0); Imm Gran Abs Auto 0.01 X10*3/uL (0.00-0.03); Imm Gran Pct Auto 0.2 % (0.0-0.4); Lymphocytes Absolute Auto 1.7 X10*3/uL (1.2-4.9); Lymphocytes Percent Auto 39.2 % (20-40); Mean Corpuscular HGB Conc 34.1 g/dl (31.0-35.0); Mean Corpuscular Hemoglobin 32.3 pg (27.0-33.0); Mean Corpuscular Volume 94.5 fL (80.0-98.0); Mean Platelet Volume 10.3 fL (9.4-12.3); Monocytes Absolute Auto 0.4 X10*3/uL (0.1-1.2); Monocytes Percent Auto 9.2 % (2-11); Neutrophils Absolute Auto 2.1 x10*3/uL (2.0-8.3); Neutrophils Percent Auto 49.3 % (45-73); Platelet Count 234 X10*3/uL (160-400); Red Blood Count 4.03 X10*6/uL (4.20-5.50); Red Cell Distribution Width 12.4 % (11.0-16.0); White Blood Count 4.2 X10*3/uL (4.8-10.8)
[2022-10-24 11:40] LABS: Glucose Fasting 101 mg/dL (60-99)
[2022-10-24 11:53] LABS: Alanine Aminotransferase 14 U/L (0-31); Albumin Level 4.6 g/dL (3.5-5.0); Alkaline Phosphatase 91 U/L (39-117); Anion Gap 11 (12-20); Aspartate Amino Transferase 19 U/L (5-31); Bilirubin Total 0.4 mg/dL (0.0-1.0); Blood Urea Nitrogen 15 mg/dL (9-16); Calcium 9.9 mg/dL (8.4-10.2); Carbon Dioxide 27 mmol/L (22-29); Chloride 107 mmol/L (96-108); Cholesterol 215 mg/dL (<200); Estimated Glomerular Filt Rate > 60; Glucose Fasting 100 mg/dL (60-99); HDL Cholesterol 84 mg/dL (>40); LDL Cholesterol Calculated 113 mg/dL (<100); Potassium 4.3 mmol/L (3.3-5.1); Sodium 141 mmol/L (135-145); Total Protein 7.3 g/dL (6.5-8.0); Triglycerides 92 mg/dL (<150)
[2022-10-24 11:59] LABS: Estimated Average Glucose 97 mg/dL
[2022-10-24 12:01] LABS: TSH reflex Free T4 0.81 uIU/mL (0.32-4.0)
[2022-10-31 19:24] LABS: Cortisol, Free 0.88 mcg/dL
== END 2022-10-24 08:33 | disposition home or self-care (01) ==
LOC: HO.HMGCLDS 08:32
PROVIDERS: Absent Provider Nurse Practitioner Psychiatric/Mental Health; PCP Internal Medicine; Visit Provider Nurse Practitioner Psychiatric/Mental Health
DX: I95.9 Hypotension, unspecified (principal); E78.5 Hyperlipidemia, unspecified; F33.1 Major depressive disorder, recurrent, moderate; Z79.899 Other long term (current) drug therapy
CPT/HCPCS: 36415; 80053; 80061; 82530; 82947; 83036; 84443; 85025

== ENCOUNTER 2022-11-11 08:58 | Outpatient (AMB) | payer OTHER, SELFPAY ==
--- NOTE | 2022-11-11 09:05 | MHC.OFFVIS ---
Intake Vital Signs 11/11/22 09:12 Height 5 ft 7 in Weight 156 lb BMI 24.4 BP 122/60 Blood Pressure Location Rt brachial Position Sitting Respiration 16 Pulse 70 Pulse Source Pulse Oximeter Pulse Oximetry (%) 99 Oxygen Delivery Method Room Air Intake Visit Reasons: Xray Results Intake Note: patient comes in to discuss xray results. Allergies Iodinated Contrast Media [Iodinated Contrast Media - IV Dye] Allergy (Intermediate, Verified 11/11/22 09:12) HIVES ketorolac [From Toradol] Allergy (Intermediate, Verified 11/11/22 09:12) localized redness/swelling HPI HPI Comments History of Present Illness Details Therese is in my office today to discuss her painful conditions and for the follow-up. She reported that in the past she was diagnosed with ?cysts in my hip joint ?. She was sent for the x-ray of the pelvis and did not demonstrate any hip changes. She reports that steroid injections are contraindicated to her because of the right eye condition, her mobile application development lead told her to avoid any steroid locations. We discussed possibility of treating her pain with neuromodulation then. I offered her I DDD and SCS. I am thinking about Nevro spinal cord stimulator. I will send her for psychological evaluation. Prior:She received caudal epidural steroid injection and right greater trochanter injection on the 08/21/2022. Even though caudal BETSEY was help she reported that she had pain improvement only for 3 weeks. She reported 80% pain improvement for radicular pain. This is not enough for me to continue this procedures in the future.She reported that this procedure was most helpful for her pain. Before that she received therapeutic sacroiliac joint injection done b Dr. Chun. Unfortunately she reported no pain improvement after this procedure. She requests me to send her for hip x-ray to evaluate her condition. I will offer her intra-articular hip injection once we have the results of the hip x-ray. COUNT INCLUDES THE [facility] Medical History (Updated 10/09/22 @ 14:54 by Arie Patricia MD) Seizure disorder Syncope Cervical spondylosis with radiculopathy Cervical radiculopathy Cervical strain Neck pain Seroma due to trauma Hematoma following procedure Calf pain Incisional pain Postoperative bleeding from incision Cellulitis Anemia Anxiety with depression Fatty liver Back pain Arthritis Abscess or cellulitis of knee Skin laxity Hyperlipidemia Neutropenia GERD (gastroesophageal reflux disease) COVID-19 vaccine administered Sacroiliitis Postlaminectomy syndrome Bunion of left foot Postconcussion syndrome Labral tear of right hip joint Spinal stenosis Colon polyps Allergic rhinitis Herpes Chronic sinusitis Depression Migraines Asthma Hypotension Malabsorption due to intolerance, not elsewhere classified Surgical History Hx of spinal fusion S/P plastic surgery S/P panniculectomy History of hip surgery History of endometrial ablation S/P tonsillectomy S/P bilateral foot surgery History of appendectomy H/O colonoscopy H/O endoscopy S/P laparoscopic sleeve gastrectomy H/O laminectomy Family History Father No problems noted. Mother Cervical spine tumor Brother No problems noted. Brother No problems noted. Brother No problems noted. Brother No problems noted. Sister Mental health disorder Son No problems noted. Daughter No problems noted. Social History Household Members: Spouse Housing: House Are you a primary plant health care technician to a significant other at home: No Do you presently have visiting nurse or other home services: No Alcohol intake: never Patient Tobacco Use Status: Former Tobacco user Second Hand Smoke Exposure: No Substance Use Type: Marijuana Advance Directives Date on File: 08/28/21 service: No Current occupational status: disabled Cognitive needs: No Hearing needs: No Vision needs: No Review of Systems Const All systems reviewed & are unremarkable except as noted in HPI and below ENT Reports Normal hearing present Neuro Reports Normal hearing present and Denies confusion Psych Denies confusion Physical Exam Const General: cooperative, alert and awake; No confusion Orientation/consciousness: patient oriented x3 and No confusion Resp Effort & Inspection: able to speak in complete sentences, no audible wheezes and no cough Neuro General: patient oriented x3 and No confusion Cranial nerves: Yes Normal hearing present Cognition (Neuro): normal cognition Psych Mental Status: mental status grossly normal Speech and movement: Clear speech present Affect: normal affect Attitude: cooperative Thought process: Normal thought process present Thought content: Normal thought content present and No Depressive thoughts present Insight: Good insight present (Psych) Judgement: Good judgement present (Psych) Assessment & Plan Assessment & Plan (1) Trochanteric bursitis of right hip: Code(s): M70.61 - Trochanteric bursitis, right hip (2) Lumbosacral spondylosis with radiculopathy: Code(s): M47.27 - Other spondylosis with radiculopathy, lumbosacral region (3) Right hip pain: Code(s): M25.551 - Pain in right hip (4) Failed back syndrome, lumbar: Code(s): M96.1 - Postlaminectomy syndrome, not elsewhere classified (5) Chronic pain syndrome: Code(s): G89.4 - Chronic pain syndrome (6) Sacroiliitis: Comment: S/p SI joint steroid injection 08/27/19, 12/08/20, 11/16/21 Code(s): M46.1 - Sacroiliitis, not elsewhere classified (7) Osteoarthritis of right hip: Code(s): M16.11 - Unilateral primary osteoarthritis, right hip Plan Patient is status post caudal BETSEY and right GTB injection on 08/21/22 and Right Therapeutic SIJ injection on 07/24/22 . Caudal BETSEY provided 80% pain relief for radicular back symptoms with improvement in her daily functions and activities. That lasted 3 weeks only. I cannot consider caudal BETSEY repeat T hernandez in the future for her. Now she is losing eye site on the right eye and her mobile application development lead for base her to have any injections.. Therefore all the therapeutic injections are impossible to treat her pain in the future. I think neuromodulation would be very good thing to do for this patient. She is interested in pain pump. I told her that with definitive laterality of her pain in the right lower extremity she might be surprised how SCS will be working for her. In any way both of the procedures he will go through the trial so I would like to perform both trials of Nevro SCS and I DDD [employer]. I will schedule this patient for psychological evaluation. Of note she reports that she is moving in 2 years to [place]. Coding Level of Care Code Est Pt Level 4 (31316) Diagnoses Trochanteric bursitis of right hip M70.61 Lumbosacral spondylosis with radiculopathy M47.27 Right hip pain M25.551 Failed back syndrome, lumbar M96.1 Chronic pain syndrome G89.4 Sacroiliitis M46.1 Osteoarthritis of right hip M16.11
[2022-11-11 09:12] VITALS: BP 122/60; PULSE 70; RESP 16; O2SAT 99; BMI 24.4
== END 2022-11-11 09:26 | disposition home or self-care (01) ==
PROVIDERS: PCP Internal Medicine; Visit Provider Anesthesiology
DX: G89.4 Chronic pain syndrome (principal); M47.27 Other spondylosis with radiculopathy, lumbosacral region; M46.1 Sacroiliitis, not elsewhere classified; M96.1 Postlaminectomy syndrome, not elsewhere classified; M70.61 Trochanteric bursitis, right hip; M16.11 Unilateral primary osteoarthritis, right hip
CPT/HCPCS: 99214

== ENCOUNTER → 2022-11-11 08:58 | Outpatient (BNVA) | payer OTHER, SELFPAY | PROVIDERS: PCP Internal Medicine; Visit Provider Anesthesiology | DX: M70.61 Trochanteric bursitis, right hip (principal); M47.27 Other spondylosis with radiculopathy, lumbosacral region; M25.551 Pain in right hip; M96.1 Postlaminectomy syndrome, not elsewhere classified; M46.1 Sacroiliitis, not elsewhere classified; M16.11 Unilateral primary osteoarthritis, right hip; G89.4 Chronic pain syndrome | CPT/HCPCS: 99212 ==

== ENCOUNTER 2022-12-04 08:25 | Outpatient (AMB) | payer OTHER, SELFPAY ==
--- NOTE | 2022-12-04 08:30 | A.OFFVIS_ITS ---
Intake Vital Signs 12/04/22 08:42 Height 5 ft 7 in Weight 154 lb BMI 24.1 BP 104/56 L Blood Pressure Location Rt brachial Position Sitting Respiration 16 Pulse 83 Pulse Source Pulse Oximeter Pulse Oximetry (%) 83 L Oxygen Delivery Method Room Air Intake Visit Reasons: increased back pain Allergies Iodinated Contrast Media [Iodinated Contrast Media - IV Dye] Allergy (Intermediate, Verified 12/04/22 08:43) HIVES ketorolac [From Toradol] Allergy (Intermediate, Verified 12/04/22 08:43) localized redness/swelling HPI HPI Comments History of Present Illness Details Therese is in my office today to discuss her painful conditions and for the follow-up. She is suffering from postlaminectomy syndrome however she reports that she never had hardware in her back. She reports that flexing forward and flexing backwards aggravates her pain but she reports that flexing backwards aggravate her pain more than flexing forward. However she states that prolong sitting and walking making her pain worse. Her pain is in axial back with radiation to the right hip and right groin. She had an x-ray of the right hip joint and it was completely normal. steroid injections are contraindicated to her because of the right eye condition, her ethylbenzene oxidizer told her to avoid any steroid locations. We discussed possibility of treating her pain with neuromodulation then. I offered her I DDD and SCS. I am thinking about Nevro spinal cord stimulator. She was sent for past psychological evaluation however she for the past month did not receive any telephone calls from [employer]. Considering severe level of pain she reports today 09/26 I offered her diagnostic medial branch block in the attempt to treat her pain. RFA versus sprint Pns possible mode of treatments if diagnostic MBB will be working for her. However vertebrogenic pain cannot be excluded, will send her for MRI for evaluation of Modic type changes. Prior:She received caudal epidural steroid injection and right greater trochanter injection on the 08/21/2022. Even though caudal BETSEY was help she reported that she had pain improvement only for 3 weeks. She reported 80% pain improvement for radicular pain. This is not enough for me to continue this procedures in the future.She reported that this procedure was most helpful for her pain. Before that she received therapeutic sacroiliac joint injection done b Dr. Chun. Unfortunately she reported no pain improvement after this procedure. She requests me to send her for hip x-ray to evaluate her condition. I will offer her intra-articular hip injection once we have the results of the hip x-ray. [facility] Medical History (Updated 12/04/22 @ 09:04 by Arie Patricia MD) Seizure disorder Syncope Cervical spondylosis with radiculopathy Cervical radiculopathy Cervical strain Neck pain Seroma due to trauma Hematoma following procedure Calf pain Incisional pain Postoperative bleeding from incision Cellulitis Anemia Anxiety with depression Fatty liver Back pain Arthritis Abscess or cellulitis of knee Skin laxity Hyperlipidemia Neutropenia GERD (gastroesophageal reflux disease) COVID-19 vaccine administered Sacroiliitis Postlaminectomy syndrome Bunion of left foot Postconcussion syndrome Labral tear of right hip joint Spinal stenosis Colon polyps Allergic rhinitis Herpes Chronic sinusitis Depression Migraines Asthma Hypotension Malabsorption due to intolerance, not elsewhere classified Surgical History Hx of spinal fusion S/P plastic surgery S/P panniculectomy History of hip surgery History of endometrial ablation S/P tonsillectomy S/P bilateral foot surgery History of appendectomy H/O colonoscopy H/O endoscopy S/P laparoscopic sleeve gastrectomy H/O laminectomy Family History Father No problems noted. Mother Cervical spine tumor Brother No problems noted. Brother No problems noted. Brother No problems noted. Brother No problems noted. Sister Mental health disorder Son No problems noted. Daughter No problems noted. Social History Household Members: Spouse Housing: House Are you a primary director of managed care to a significant other at home: No Do you presently have visiting nurse or other home services: No Alcohol intake: never Patient Tobacco Use Status: Former Tobacco user Second Hand Smoke Exposure: No Substance Use Type: Marijuana Advance Directives Date on File: 08/28/21 service: No Current occupational status: disabled Cognitive needs: No Hearing needs: No Vision needs: No Review of Systems Const All systems reviewed & are unremarkable except as noted in HPI and below ENT Reports Normal hearing present Neuro Reports Normal hearing present and Denies confusion Psych Denies confusion Physical Exam Const General: cooperative, alert and awake; No confusion Orientation/consciousness: patient oriented x3 and No confusion Resp Effort & Inspection: able to speak in complete sentences, no audible wheezes and no cough Back/Spine/Pelvis Other: Loading test is positive bilaterally tenderness on palpation on lower lumbar and mid lumbar spine, paraspinal regions are less tender on palpation in the area however also cause significant tenderness. Flexing forward and flexing backwards both aggravate pain with flexing backwards to be more aggravating than flexing forward. Neuro General: patient oriented x3 and No confusion Cranial nerves: Yes Normal hearing present Cognition (Neuro): normal cognition Psych Mental Status: mental status grossly normal Speech and movement: Clear speech present Affect: normal affect Attitude: cooperative Thought process: Normal thought process present Thought content: Normal thought content present and No Depressive thoughts present Insight: Good insight present (Psych) Judgement: Good judgement present (Psych) Assessment & Plan Assessment & Plan (1) Trochanteric bursitis of right hip: Code(s): M70.61 - Trochanteric bursitis, right hip (2) Lumbosacral spondylosis with radiculopathy: Code(s): M47.27 - Other spondylosis with radiculopathy, lumbosacral region (3) Right hip pain: Code(s): M25.551 - Pain in right hip (4) Failed back syndrome, lumbar: Code(s): M96.1 - Postlaminectomy syndrome, not elsewhere classified (5) Chronic pain syndrome: Code(s): G89.4 - Chronic pain syndrome (6) Sacroiliitis: Comment: S/p SI joint steroid injection 08/27/19, 12/08/20, 11/16/21 Code(s): M46.1 - Sacroiliitis, not elsewhere classified (7) Vertebrogenic low back pain: Code(s): M54.51 - Vertebrogenic low back pain (8) Spondylosis of lumbar region without myelopathy or radiculopathy: Code(s): M47.816 - Spondylosis without myelopathy or radiculopathy, lumbar region Plan Patient is status post caudal BETSEY and right GTB injection on 08/21/22 and Right Therapeutic SIJ injection on 07/24/22 . Caudal BETSEY provided 80% pain relief for radicular back symptoms with improvement in her daily functions and activities. That lasted 3 weeks only. I cannot consider caudal BETSEY repeatin the future for her. Now she is losing eye site on the right eye and her ethylbenzene oxidizer for base her to have any injections.. She has no hardware in her back I think we might attempt for her diagnostic medial branch block, her loading test is positive see exam above. the therapeutic injections are impossible to treat her pain in the future. I think neuromodulation would be very good thing to do for this patient. However if MBB will be giving her significant pain relieve we can consider RFA without steroids or sprint PNS. History of axial pain and pain exacerbated with prolonged sitting give the makes me think about vertebra genic pain. I will send her for the MRI to evaluate Modic type changes. She is interested in pain pump. I told her that with definitive laterality of her pain in the right lower extremity she might be surprised how SCS will be working for her. In any way both of the procedures he will go through the trial so I would like to perform both trials of Nevro SCS and I DDD [employer]. We still are waiting for psychological evaluation. Nobody contacted patient yet. Of note she reports that she is moving in 2 years to [place]. Orders: Orders MR lumbar spine wo con Today M47.816 - Spondylosis without myelopathy or radiculopathy, lumbar region, M54.51 - Vertebrogenic low back pain Coding Level of Care Code Est Pt Level 4 (50823) Diagnoses Trochanteric bursitis of right hip M70.61 Lumbosacral spondylosis with radiculopathy M47.27 Right hip pain M25.551 Failed back syndrome, lumbar M96.1 Chronic pain syndrome G89.4 Sacroiliitis M46.1 Vertebrogenic low back pain M54.51 Spondylosis of lumbar region without myelopathy or radiculopathy M47.816
[2022-12-04 08:42] VITALS: BP 104/56; PULSE 83; RESP 16; O2SAT 83; BMI 24.1
== END 2022-12-04 08:50 | disposition home or self-care (01) ==
PROVIDERS: PCP Internal Medicine; Visit Provider Anesthesiology
DX: M70.61 Trochanteric bursitis, right hip (principal); M47.27 Other spondylosis with radiculopathy, lumbosacral region; M25.551 Pain in right hip; M96.1 Postlaminectomy syndrome, not elsewhere classified; G89.4 Chronic pain syndrome; M46.1 Sacroiliitis, not elsewhere classified; M54.51 Vertebrogenic low back pain; M47.816 Spondylosis without myelopathy or radiculopathy, lumbar region
CPT/HCPCS: 99214

== ENCOUNTER → 2022-12-04 08:25 | Outpatient (BNVA) | payer OTHER, SELFPAY | PROVIDERS: PCP Internal Medicine; Visit Provider Anesthesiology | DX: M70.61 Trochanteric bursitis, right hip (principal); M47.27 Other spondylosis with radiculopathy, lumbosacral region; M25.551 Pain in right hip; M96.1 Postlaminectomy syndrome, not elsewhere classified; M46.1 Sacroiliitis, not elsewhere classified; M54.51 Vertebrogenic low back pain; M47.816 Spondylosis without myelopathy or radiculopathy, lumbar region; G89.4 Chronic pain syndrome | CPT/HCPCS: 99212 ==

== ENCOUNTER 2022-12-24 06:08 | Outpatient (REF) | payer OTHER, SELFPAY ==
--- NOTE | ~2022-12-24 | FL_ITS ---
EXAMINATION: XR FLUOROSCOPY WITH IMAGES CLINICAL INFORMATION: Spondylosis without myelopathy or radiculopathy, lumbar region. COMPARISON: None available. TECHNIQUE: Fluoroscopy Supervised By: Dr. Slim Cervantes. Fluoroscopy Time: 0.5 minutes. Cumulative Dose: 10.3 mGy. DAP: 0.148 Gycm2. Images: 6. FINDINGS: Images demonstrate needle placement and contrast injection adjacent to the bilateral lateral L3, L4 and L5 vertebrae FL/FL guidance in treatment room IMPRESSION: Fluoroscopic guidance for pain management procedure.
== END 2022-12-24 06:09 | disposition home or self-care (01) ==
LOC: CF 06:08
PROVIDERS: Visit Provider Anesthesiology
DX: M47.816 Spondylosis without myelopathy or radiculopathy, lumbar region (principal); M70.61 Trochanteric bursitis, right hip; M47.27 Other spondylosis with radiculopathy, lumbosacral region; G89.4 Chronic pain syndrome
CPT/HCPCS: 64493; 64494; J2795; Q9967

== ENCOUNTER 2022-12-24 13:22 | Outpatient (AMB) | payer OTHER, SELFPAY ==
--- NOTE | 2022-12-24 13:58 | MHC.OFFVIS ---
Intake Vital Signs 12/24/22 14:20 12/24/22 14:22 Height 5 ft 7 in 5 ft 7 in Weight 154 lb 154 lb BMI 24.1 24.1 BP 96/62 100/64 Blood Pressure Location Lt brachial Lt brachial Position Sitting Sitting Respiration 16 16 Pulse 71 64 Pulse Source Pulse Oximeter Pulse Oximeter Pulse Oximetry (%) 99 98 Oxygen Delivery Method Room Air Room Air Comment pre-op post-op Intake Visit Reasons: BILAT DX L3-L4-DRL5 MBB/LOCAL Allergies Iodinated Contrast Media [Iodinated Contrast Media - IV Dye] Allergy (Intermediate, Verified 12/24/22 14:23) HIVES ketorolac [From Toradol] Allergy (Intermediate, Verified 12/24/22 14:23) localized redness/swelling [facility] Medical History (Updated 12/25/22 @ 08:13 by Arie Patricia MD) Seizure disorder Syncope Cervical spondylosis with radiculopathy Cervical radiculopathy Cervical strain Neck pain Seroma due to trauma Hematoma following procedure Calf pain Incisional pain Postoperative bleeding from incision Cellulitis Anemia Anxiety with depression Fatty liver Back pain Arthritis Abscess or cellulitis of knee Skin laxity Hyperlipidemia Neutropenia GERD (gastroesophageal reflux disease) COVID-19 vaccine administered Sacroiliitis Postlaminectomy syndrome Bunion of left foot Postconcussion syndrome Labral tear of right hip joint Spinal stenosis Colon polyps Allergic rhinitis Herpes Chronic sinusitis Depression Migraines Asthma Hypotension Malabsorption due to intolerance, not elsewhere classified Surgical History Hx of spinal fusion S/P plastic surgery S/P panniculectomy History of hip surgery History of endometrial ablation S/P tonsillectomy S/P bilateral foot surgery History of appendectomy H/O colonoscopy H/O endoscopy S/P laparoscopic sleeve gastrectomy H/O laminectomy Family History Father No problems noted. Mother Cervical spine tumor Brother No problems noted. Brother No problems noted. Brother No problems noted. Brother No problems noted. Sister Mental health disorder Son No problems noted. Daughter No problems noted. Social History Household Members: Spouse Housing: House Are you a primary customer care manager to a significant other at home: No Do you presently have visiting nurse or other home services: No Alcohol intake: never Patient Tobacco Use Status: Former Tobacco user Second Hand Smoke Exposure: No Substance Use Type: Marijuana Advance Directives Date on File: 08/28/21 service: No Current occupational status: disabled Cognitive needs: No Hearing needs: No Vision needs: No Physical Exam Vital Signs: Last Vital Signs Pulse 64 12/24/22 14:22 Resp 16 12/24/22 14:22 BP 100/64 12/24/22 14:22 Pulse Ox 98 12/24/22 14:22 Oxygen Delivery Method Room Air 12/24/22 14:22 BMI result Body Mass Index 24.1 Assessment & Plan Assessment & Plan (1) Calcification of aorta: Code(s): I70.0 - Atherosclerosis of aorta (2) Arterial calcification: Code(s): I70.90 - Unspecified atherosclerosis (3) Trochanteric bursitis of right hip: Code(s): M70.61 - Trochanteric bursitis, right hip (4) Lumbosacral spondylosis with radiculopathy: Code(s): M47.27 - Other spondylosis with radiculopathy, lumbosacral region (5) Right hip pain: Code(s): M25.551 - Pain in right hip (6) Failed back syndrome, lumbar: Code(s): M96.1 - Postlaminectomy syndrome, not elsewhere classified Plan: Bilateral no stick medial branch block L3-L4 dorsal ramus L5. Informed consent was explained to the patient. All questions were explained and? answered.? The patient was taken inside the operating room where she was positioned prone on the operating table.? Time-out was performed delineating correct site, side, the nature of the procedure, patient's allergy, preoperative antibiotic if needed.? All operating room staff was participating in OR time-out procedure. The lower back was prepped with ChloraPrep and draped with sterile towels.? Sterilely draped C-arm was brought over the operating field and sq picture of L4-and L5 vertebra and S1 AREA were delineated on the screen.? Severely calcified aorta and bilateral iliac arteries were noted during the fluoroscopy. The patient will be sent for evaluation by vascular surgeon. Point of interest were delineated as connection of superior articular process of L4 and L5 vertebra bilaterally with corresponding transverse processes as well as connection of the sacral alae bilaterally with superior articular process of S1.? The projection of the point of interest to the skin were injected with the small amount of local anesthetic lidocaine 2% 1-1.5 cc.? After that 22 gauge 3-1/2 inch spinal needle was driven sequentially to the points of interest in tunnel vision fashion. After needles gently contacted the bone at the point of interests the needle was injected with small amount of the contrast.? The injection of the contrast did not demonstrate any intravascular or intrathecal spread of the contrast.? After that injection of the?ropivacaine 0.5%-1cc was performed at each needle location.? Upon completion of the injections? needle was? removed and sterile Band-Aids were applied.? The? patient was taken outside of the operating room to recovery room where she recovered uneventfully.? She went home without immediate complications. (7) Chronic pain syndrome: Code(s): G89.4 - Chronic pain syndrome (8) Sacroiliitis: Comment: S/p SI joint steroid injection 08/27/19, 12/08/20, 11/16/21 Code(s): M46.1 - Sacroiliitis, not elsewhere classified (9) Vertebrogenic low back pain: Code(s): M54.51 - Vertebrogenic low back pain (10) Spondylosis of lumbar region without myelopathy or radiculopathy: Code(s): M47.816 - Spondylosis without myelopathy or radiculopathy, lumbar region Plan Patient is status post caudal BETSEY and right GTB injection on 08/21/22 and Right Therapeutic SIJ injection on 07/24/22 . Caudal BETSEY provided 80% pain relief for radicular back symptoms with improvement in her daily functions and activities. That lasted 3 weeks only. I cannot consider caudal BETSEY repeatin the future for her. Now she is losing eye site on the right eye and her b2b outside sales representative for base her to have any injections.. She has no hardware in her back I think we might attempt for her diagnostic medial branch block, her loading test is positive see exam above. the therapeutic injections are impossible to treat her pain in the future. I think neuromodulation would be very good thing to do for this patient. However if MBB will be giving her significant pain relieve we can consider RFA without steroids or sprint PNS. History of axial pain and pain exacerbated with prolonged sitting give the makes me think about vertebra genic pain. I will send her for the MRI to evaluate Modic type changes. She is interested in pain pump. I told her that with definitive laterality of her pain in the right lower extremity she might be surprised how SCS will be working for her. In any way both of the procedures he will go through the trial so I would like to perform both trials of Nevro SCS and I DDD [employer]. We still are waiting for psychological evaluation. Nobody contacted patient yet. Of note she reports that she is moving in 2 years to [place]. Orders: Orders [place] guidance in treatment room 12/24/22 M47.816 - Spondylosis without myelopathy or radiculopathy, lumbar region Amber Frank, MICROFILM EQUIPMENT INSPECTOR, PIT FURNACE OPERATOR Referrals Vascular Surgery Referral I70.0 - Atherosclerosis of aorta, I70.90 - Unspecified atherosclerosis Arie Patricia MD Coding Level of Care Code Procedure Only Diagnoses Calcification of aorta I70.0 Arterial calcification I70.90 Trochanteric bursitis of right hip M70.61 Lumbosacral spondylosis with radiculopathy M47.27 Right hip pain M25.551 Failed back syndrome, lumbar M96.1 Chronic pain syndrome G89.4 Sacroiliitis M46.1 Vertebrogenic low back pain M54.51 Spondylosis of lumbar region without myelopathy or radiculopathy M47.816
[2022-12-24 14:20] VITALS: BP 96/62; PULSE 71; RESP 16; O2SAT 99; BMI 24.1
[2022-12-24 14:22] VITALS: BP 100/64; PULSE 64; RESP 16; O2SAT 98; BMI 24.1
== END 2022-12-24 14:06 | disposition home or self-care (01) ==
LOC: HO.PMCPRC 13:22
PROVIDERS: PCP Internal Medicine; Visit Provider Anesthesiology
DX: M47.816 Spondylosis without myelopathy or radiculopathy, lumbar region (principal)
CPT/HCPCS: 64493; 64494

== ENCOUNTER 2022-12-26 09:38 | Outpatient (AMB) | payer OTHER, SELFPAY ==
--- NOTE | 2022-12-26 09:51 | MHC.OFFVIS ---
Intake Vital Signs 12/26/22 09:52 Height 5 ft 7 in Weight 158 lb 6 oz BMI 24.8 BP 107/53 L Blood Pressure Location Lt brachial Position Sitting Respiration 16 Pulse 81 Pulse Source Pulse Oximeter Pulse Oximetry (%) 98 Oxygen Delivery Method Room Air Intake Visit Reasons: BILAT DX L3-L4-DRL5 MBB 12/24/22/confirmed Allergies Iodinated Contrast Media [Iodinated Contrast Media - IV Dye] Allergy (Intermediate, Verified 12/26/22 09:51) HIVES ketorolac [From Toradol] Allergy (Intermediate, Verified 12/26/22 09:51) localized redness/swelling HPI HPI Comments History of Present Illness Details Therese is in my office today to discuss her painful conditions and for the follow-up. She is suffering from postlaminectomy s-jeri she never had hardware in her back.she went for the diagnostic MBB L3- L4- DRL5 on 12/24/2022. Her pain before the procedure was 8/10. immediately after the procedure her pain became 5/10. 3 hours the pain remained at 5/10 and at the forth hour it returned to almost preinjection level of 7/10. I cannot consider this diagnostic injection as an indicator of a pain generator. She reports that flexing forward and flexing backwards aggravates her pain but she reports that flexing backwards aggravate her pain more than flexing forward. However she states that prolong sitting and walking making her pain worse. Her pain is in axial back with radiation to the right hip and right groin. She had an x-ray of the right hip joint and it was completely normal. steroid injections are contraindicated to her because of the right eye condition, her senior regulatory affairs specialist told her to avoid any steroid locations. We discussed possibility of treating her pain with neuromodulation then. I offered her I DDD and SCS. I am thinking about Nevro spinal cord stimulator. She was sent for past psychological evaluation however she for the past month did not receive any telephone calls from [facility]. vertebrogenic pain cannot be excluded, will send her for MRI for evaluation of Modic type changes. She was sent for the MRI and the order is still standing: MRI staff tried to contact her and they were not able to reach her. This was conveyed to the patient. Also during the procedure attention was attracted to a silhouette of heavily calcified aorta and common illac artheries. Referal to the vascular surgery was made. Prior:She received caudal epidural steroid injection and right greater trochanter injection on the 08/21/2022. Even though caudal BETSEY was help she reported that she had pain improvement only for 3 weeks. She reported 80% pain improvement for radicular pain. This is not enough for me to continue this procedures in the future.She reported that this procedure was most helpful for her pain. Before that she received therapeutic sacroiliac joint injection done b Dr. Chun. Unfortunately she reported no pain improvement after this procedure. [facility] Medical History (Updated 12/25/22 @ 08:13 by Arie Patricia MD) Seizure disorder Syncope Cervical spondylosis with radiculopathy Cervical radiculopathy Cervical strain Neck pain Seroma due to trauma Hematoma following procedure Calf pain Incisional pain Postoperative bleeding from incision Cellulitis Anemia Anxiety with depression Fatty liver Back pain Arthritis Abscess or cellulitis of knee Skin laxity Hyperlipidemia Neutropenia GERD (gastroesophageal reflux disease) COVID-19 vaccine administered Sacroiliitis Postlaminectomy syndrome Bunion of left foot Postconcussion syndrome Labral tear of right hip joint Spinal stenosis Colon polyps Allergic rhinitis Herpes Chronic sinusitis Depression Migraines Asthma Hypotension Malabsorption due to intolerance, not elsewhere classified Surgical History Hx of spinal fusion S/P plastic surgery S/P panniculectomy History of hip surgery History of endometrial ablation S/P tonsillectomy S/P bilateral foot surgery History of appendectomy H/O colonoscopy H/O endoscopy S/P laparoscopic sleeve gastrectomy H/O laminectomy Family History Father No problems noted. Mother Cervical spine tumor Brother No problems noted. Brother No problems noted. Brother No problems noted. Brother No problems noted. Sister Mental health disorder Son No problems noted. Daughter No problems noted. Social History Household Members: Spouse Housing: House Are you a primary animal care provider to a significant other at home: No Do you presently have visiting nurse or other home services: No Alcohol intake: never Patient Tobacco Use Status: Former Tobacco user Second Hand Smoke Exposure: No Substance Use Type: Marijuana Advance Directives Date on File: 08/28/21 service: No Current occupational status: disabled Cognitive needs: No Hearing needs: No Vision needs: No Review of Systems Const All systems reviewed & are unremarkable except as noted in HPI and below ENT Reports Normal hearing present Neuro Reports Normal hearing present and Denies confusion Psych Denies confusion Physical Exam Vital Signs: Last Vital Signs Pulse 81 12/26/22 09:52 Resp 16 12/26/22 09:52 BP 107/53 L 12/26/22 09:52 Pulse Ox 98 12/26/22 09:52 Oxygen Delivery Method Room Air 12/26/22 09:52 BMI result Body Mass Index 24.8 Const General: cooperative, alert and awake; No confusion Orientation/consciousness: patient oriented x3 and No confusion Resp Effort & Inspection: able to speak in complete sentences, no audible wheezes and no cough Back/Spine/Pelvis Other: Loading test is positive bilaterally tenderness on palpation on lower lumbar and mid lumbar spine, paraspinal regions are less tender on palpation in the area however also cause significant tenderness. Flexing forward and flexing backwards both aggravate pain with flexing backwards to be more aggravating than flexing forward. Neuro General: patient oriented x3 and No confusion Cranial nerves: Yes Normal hearing present Cognition (Neuro): normal cognition Psych Mental Status: mental status grossly normal Speech and movement: Clear speech present Affect: normal affect Attitude: cooperative Thought process: Normal thought process present Thought content: Normal thought content present and No Depressive thoughts present Insight: Good insight present (Psych) Judgement: Good judgement present (Psych) Assessment & Plan Assessment & Plan (1) Calcification of aorta: Code(s): I70.0 - Atherosclerosis of aorta (2) Arterial calcification: Code(s): I70.90 - Unspecified atherosclerosis (3) Trochanteric bursitis of right hip: Code(s): M70.61 - Trochanteric bursitis, right hip (4) Lumbosacral spondylosis with radiculopathy: Code(s): M47.27 - Other spondylosis with radiculopathy, lumbosacral region (5) Right hip pain: Code(s): M25.551 - Pain in right hip (6) Failed back syndrome, lumbar: Code(s): M96.1 - Postlaminectomy syndrome, not elsewhere classified Plan: (7) Chronic pain syndrome: Code(s): G89.4 - Chronic pain syndrome (8) Sacroiliitis: Comment: S/p SI joint steroid injection 08/27/19, 12/08/20, 11/16/21 Code(s): M46.1 - Sacroiliitis, not elsewhere classified (9) Vertebrogenic low back pain: Code(s): M54.51 - Vertebrogenic low back pain (10) Spondylosis of lumbar region without myelopathy or radiculopathy: Code(s): M47.816 - Spondylosis without myelopathy or radiculopathy, lumbar region Plan Patient is status post caudal BETSEY and right GTB injection on 08/21/22 and Right Therapeutic SIJ injection on 07/24/22 . Caudal BETSEY provided 80% pain relief for radicular back symptoms with improvement in her daily functions and activities. That lasted 3 weeks only. I cannot consider caudal BETSEY repeatin the future for her. Now she is losing eye site on the right eye and her senior regulatory affairs specialist forbade her to have any steroid injections. the therapeutic injections are impossible to treat her pain in the future. MBB resulted in no pain improvement. I think neuromodulation would be very good thing to do for this patient. MBB resulted in no pain improvement. History of axial pain and pain exacerbated with prolonged sitting give the makes me think about vertebrogenic pain. Order for MRI was entered but MRI staff was not able to get into contact with the patient. She is interested in pain pump. I told her that with definitive laterality of her pain in the right lower extremity she might be surprised how SCS will be working for her. In any way both of the procedures he will go through the trial so I would like to perform both trials of Nevro SCS and I DDD [employer]. Heavily calcified aorta was detected in the C-arm images. The patient will be sent for a vascular surgery consult. We still are waiting for psychological evaluation and also I would like to see her MRI of the lumbar spine for possible detection of the Modic type changes. Of note she reports that she is moving in 2 years to [place]. Coding Level of Care Code Est Pt Level 3 (55962) Diagnoses Calcification of aorta I70.0 Arterial calcification I70.90 Trochanteric bursitis of right hip M70.61 Lumbosacral spondylosis with radiculopathy M47.27 Right hip pain M25.551 Failed back syndrome, lumbar M96.1 Chronic pain syndrome G89.4 Sacroiliitis M46.1 Vertebrogenic low back pain M54.51 Spondylosis of lumbar region without myelopathy or radiculopathy M47.816
[2022-12-26 09:52] VITALS: BP 107/53; PULSE 81; RESP 16; O2SAT 98; BMI 24.8
== END 2022-12-26 10:08 | disposition home or self-care (01) ==
PROVIDERS: PCP Internal Medicine; Visit Provider Anesthesiology
DX: I70.0 Atherosclerosis of aorta (principal); I70.90 Unspecified atherosclerosis; M70.61 Trochanteric bursitis, right hip; M47.27 Other spondylosis with radiculopathy, lumbosacral region; M25.551 Pain in right hip; M96.1 Postlaminectomy syndrome, not elsewhere classified; G89.4 Chronic pain syndrome; M46.1 Sacroiliitis, not elsewhere classified; M54.51 Vertebrogenic low back pain; M47.816 Spondylosis without myelopathy or radiculopathy, lumbar region
CPT/HCPCS: 99213

== ENCOUNTER → 2022-12-26 09:38 | Outpatient (BNVA) | payer OTHER, SELFPAY | PROVIDERS: PCP Internal Medicine; Visit Provider Anesthesiology | DX: I70.0 Atherosclerosis of aorta (principal); I70.90 Unspecified atherosclerosis; M70.61 Trochanteric bursitis, right hip; M47.27 Other spondylosis with radiculopathy, lumbosacral region; M25.551 Pain in right hip; M96.1 Postlaminectomy syndrome, not elsewhere classified; M46.1 Sacroiliitis, not elsewhere classified; M54.51 Vertebrogenic low back pain; M47.816 Spondylosis without myelopathy or radiculopathy, lumbar region; G89.4 Chronic pain syndrome | CPT/HCPCS: 99212 ==

== ENCOUNTER 2023-01-28 19:10 | Outpatient (REF) | payer OTHER, SELFPAY ==
--- NOTE | ~2023-01-28 | MR_ITS ---
MR LUMBAR SPINE WITHOUT CONTRAST CLINICAL INFORMATION: Vertebrogenic low back pain. COMPARISON: Lumbar spine MRI 09/03/2019. TECHNIQUE: MRI of the lumbar spine was obtained using routine sequences without contrast. FINDINGS: Transitional anatomy is again noted in the same counting system is used as the prior report. There are 5 nonrib-bearing lumbar-type vertebral bodies and L5 is sacralized, sharing a pseudoarticulation with the sacrum on both sides and a rudimentary disc with S1. There are hypoplastic ribs at the lowermost thoracic type segment. Please correlate with plain films prior to any percutaneous or surgical intervention. Lumbar alignment is maintained. The vertebral body heights are preserved. Progressive moderate to severe disc volume loss at L4-L5. Mild disc volume loss at L2-L3 and L3-L4. There is disc desiccation at these 3 levels. There Modic type I endplate signal changes at L4-L5. There is no additional bone marrow edema. There are no acute fractures. Multilevel endplate osteophytes. Conus terminates at the T12-L1 level. There are no significant extraspinal soft tissue findings. L1-L2: Disc contour is normal. There is mild bilateral facet arthropathy. There is no central canal stenosis and there is no foraminal stenosis. L2-L3: There is a diffuse annular disc bulge and there is moderate bilateral hypertrophic facet arthropathy. There is no central canal stenosis. There is mild foraminal encroachment bilaterally. L3-L4: Left hemilaminectomy changes. There is a diffuse annular disc bulge that is in part disc osteophyte and there is severe bilateral facet arthropathy and ligamentum flavum thickening. Findings in concert result in worsening moderate to severe central canal stenosis, bilateral subarticular zone stenosis with mass effect on the traversing L4 nerve roots bilaterally, and mild to moderate bilateral foraminal stenosis. L4-L5: Left hemilaminectomy changes. Diffuse disc osteophyte complex and bilateral hypertrophic facet arthropathy. Findings in concert result in persistent bilateral subarticular zone stenosis with mass effect on the traversing L5 nerve roots bilaterally and mild to moderate right-sided foraminal stenosis. L5-S1: There are far right greater than left lateral disc osteophyte protrusions resulting in mass effect on the extraforaminal right L5 nerve root. MR/MR lumbar spine wo con IMPRESSION: - Transitional anatomy is again noted in the same counting system is used as the prior report. There are 5 nonrib-bearing lumbar-type vertebral bodies and L5 is sacralized, sharing a pseudoarticulation with the sacrum on both sides and a rudimentary disc with S1. There are hypoplastic ribs at the lowermost thoracic type segment. Please correlate with plain films prior to any percutaneous or surgical intervention. - At L3-L4, there are left hemilaminectomy changes and progressive advanced spondylitic changes result in worsening moderate to severe central canal stenosis, bilateral subarticular zone stenosis with mass effect on the traversing L4 nerve roots bilaterally, and mild to moderate bilateral foraminal stenosis. - At L4-L5, there are chronic left hemilaminectomy changes and spondylitic changes result in persistent bilateral subarticular zone stenosis with mass effect on the traversing L5 nerve roots bilaterally and mild to moderate right-sided foraminal stenosis. - At the transitional L5-S1 level, a far right lateral disc osteophyte protrusion results in similar mass effect on the extraforaminal right L5 nerve root.
== END 2023-01-28 19:11 | disposition home or self-care (01) ==
LOC: HO.MRI 19:10
PROVIDERS: PCP Internal Medicine; Visit Provider Anesthesiology
DX: M54.51 Vertebrogenic low back pain (principal); M47.816 Spondylosis without myelopathy or radiculopathy, lumbar region
CPT/HCPCS: 72148

== ENCOUNTER 2023-02-18 09:26 | Outpatient (AMB) | payer OTHER, SELFPAY ==
[2023-02-18 09:30] VITALS: BP 130/72; PULSE 78; O2SAT 96; BMI 24.3
--- NOTE | 2023-02-18 09:30 | MHC.OFFVIS ---
Intake Vital Signs 02/18/23 09:30 Height 5 ft 7 in Weight 155 lb BMI 24.3 BP 130/72 Blood Pressure Location Rt brachial Position Sitting Pulse 78 Pulse Source Pulse Oximeter Pulse Oximetry (%) 96 Oxygen Delivery Method Room Air Intake Visit Reasons: calcifications of aorta Intake Note: Pt presents to the office today for calcification of aorta. Pt states she is feeling tired all the time. Pt states she has leg pain and has numbness and tingling in her legs and feet. Pt states she also gets leg cramping in both legs. Pt states she believe her right leg is worse than her left at this point and time. Allergies Iodinated Contrast Media [Iodinated Contrast Media - IV Dye] Allergy (Intermediate, Verified 02/18/23 09:31) HIVES ketorolac [From Toradol] Allergy (Intermediate, Verified 02/18/23 09:31) localized redness/swelling HPI calcifications of aorta HPI Details Very pleasant 62-year-old female presents for evaluation regarding calcification of the aorta. She is being worked up by pain management regarding back pain issues. She has a remote smoking history and is a nondiabetic. Of note she has undergone laparoscopic sleeve gastrectomy on 07/16/2018. Subsequent to that she underwent bilateral brachioplasty and thigh plasty on 08/22/2020. She reported postop she had significant nonhealing skin ulcerations which has gone on to heal. She has had lower extremity discomfort and is being seen by pain management regarding lumbosacral spondylolysis with radiculopathy and chronic pain syndrome. She has undergone prior SI joint injections with minimal relief. She was noted on C-arm to have a calcified aorta. Of note she did have a prior CT scan dated 05/02/2022. [facility] Medical History Seizure disorder Syncope Cervical spondylosis with radiculopathy Cervical radiculopathy Cervical strain Neck pain Seroma due to trauma Hematoma following procedure Calf pain Incisional pain Postoperative bleeding from incision Cellulitis Anemia Anxiety with depression Fatty liver Back pain Arthritis Abscess or cellulitis of knee Skin laxity Hyperlipidemia Neutropenia GERD (gastroesophageal reflux disease) COVID-19 vaccine administered Sacroiliitis Postlaminectomy syndrome Bunion of left foot Postconcussion syndrome Labral tear of right hip joint Spinal stenosis Colon polyps Allergic rhinitis Herpes Chronic sinusitis Depression Migraines Asthma Hypotension Malabsorption due to intolerance, not elsewhere classified Surgical History Hx of spinal fusion S/P plastic surgery S/P panniculectomy History of hip surgery History of endometrial ablation S/P tonsillectomy S/P bilateral foot surgery History of appendectomy H/O colonoscopy H/O endoscopy S/P laparoscopic sleeve gastrectomy H/O laminectomy Family History Father No problems noted. Mother Cervical spine tumor Brother No problems noted. Brother No problems noted. Brother No problems noted. Brother No problems noted. Sister Mental health disorder Son No problems noted. Daughter No problems noted. Social History Household Members: Spouse Housing: House Are you a primary neonatal critical care nurse to a significant other at home: No Do you presently have visiting nurse or other home services: No Alcohol intake: never Patient Tobacco Use Status: Former Tobacco user Second Hand Smoke Exposure: No Substance Use Type: Marijuana Advance Directives Date on File: 08/28/21 service: No Current occupational status: disabled Cognitive needs: No Hearing needs: No Vision needs: No Review of Systems Const All systems reviewed & are unremarkable except as noted in HPI and below Reports no additional complaints ENT Reports Normal hearing present Card Denies chest pain, Denies chest pain at rest, Denies chest pain with activity and Denies pedal edema Resp Denies cough GI Denies abdominal pain Musc Denies abnormal gait, Denies muscle cramps and Denies radiating pain into limb Skin/Breast Denies skin ulcer and Denies wounds Neuro Reports Normal hearing present and Denies abnormal gait Psych Reports no additional complaints Physical Exam Vital Signs: Last Vital Signs Pulse 78 02/18/23 09:30 BP 130/72 02/18/23 09:30 Pulse Ox 96 02/18/23 09:30 Oxygen Delivery Method Room Air 02/18/23 09:30 BMI result Body Mass Index 24.3 Const General: cooperative, healthy appearing and comfortable Orientation/consciousness: oriented to person, oriented to place and oriented to time HEENT Head: Yes normal to inspection Neck Neck: Yes normal visual inspection Carotids: no bruits Chest Chest palpation & inspection: normal inspection of the chest Resp Effort & Inspection: normal respiratory effort and able to speak in complete sentences Auscultation: clear to auscultation bilaterally, no crackles, no rales, no rhonchi and no wheezes Cardio Other: Palpable bilateral dorsalis pedis pulses Rate: regular rate Rhythm: regular rhythm Heart sounds: S1 normal heart sound present and S2 normal heart sound present Bruits: no carotid bruits Peripheral pulses: Peripheral pulses 2+ throughout GI Inspection: Yes normal to inspection Skin Wounds: no wounds Hair: normal Neuro General: oriented to person, oriented to place and oriented to time Cranial nerves: Yes CN's II-XII intact bilaterally and Yes Normal hearing present Cognition (Neuro): normal cognition Motor exam (neuro): 5/5 motor strength present throughout Extrem Other: venous exam: No significant superficial varicosities or spider telangiectasias, minimal edema General: No clubbing, No cyanosis and No edema Psych Appearance: grossly normal Mental Status: mental status grossly normal Speech and movement: Normal speech and movement present Results Reviewed Results Reviewed: CT scan from 05/02/2022 was reviewed written report and images demonstrating non obstructive aortic calcifications. In addition she does have some calcifications of the iliac vessels in particular the common iliacs but once again they are nonobstructing Assessment & Plan Assessment & Plan (1) Calcification of aorta: Code(s): I70.0 - Atherosclerosis of aorta Plan: In short she does have asymptomatic atherosclerotic disease. At the current time she is stable from my perspective in no intervention from my point of view is required. She is stable to move forward with any procedures as required by pain management. We will follow on an as-needed basis. Thank you for allowing us to assist in her care. Coding Level of Care Code New Pt Level 4 (43234) Diagnoses Calcification of aorta I70.0
== END 2023-02-18 09:59 | disposition home or self-care (01) ==
PROVIDERS: PCP Internal Medicine; Visit Provider Surgery Vascular Surgery
DX: I70.0 Atherosclerosis of aorta (principal)
CPT/HCPCS: 99203

== ENCOUNTER → 2023-02-18 09:26 | Outpatient (BNVA) | payer OTHER, SELFPAY | PROVIDERS: PCP Internal Medicine; Visit Provider Surgery Vascular Surgery | DX: I70.0 Atherosclerosis of aorta (principal) | CPT/HCPCS: 99202 ==

== ENCOUNTER 2023-02-21 07:47 | Outpatient (AMB) | payer OTHER, SELFPAY ==
--- NOTE | 2023-02-21 08:10 | MHC.PC.OV ---
Vital Signs 02/21/23 08:11 Height 5 ft 7 in Weight 158 lb BMI 24.7 BP 96/60 Blood Pressure Location Lt brachial Position Sitting Pulse 71 Pulse Source Pulse Oximeter Pulse Oximetry (%) 96 Oxygen Delivery Method Room Air Intake Visit Reasons: Annual PE Intake Note: Pt is here today for PE. Allergies Iodinated Contrast Media [Iodinated Contrast Media - IV Dye] Allergy (Intermediate, Verified 02/21/23 08:12) HIVES ketorolac [From Toradol] Allergy (Intermediate, Verified 02/21/23 08:12) localized redness/swelling Medication List - Last Reconciled 02/21/23 by Corinne Figueroa MD albuterol sulfate 90 mcg/actuation (ProAir HFA) 2 puffs inhalation Q4-6H PRN brimonidine 0.2% 1 drp ophthalmic (eye) BID acikhjzgsz-aarfeofflwode-kifk 50-325-40 mg 1 tab PO Q6H PRN clonazepam 1 mg PO BID fluticasone furoate-vilanterol 200-25 mcg/dose (Breo Ellipta) 1 inh inhalation DAILY fluticasone propionate 50 mcg/actuation 1 spray intranasal DAILY gabapentin 600 mg PO BID levetiracetam (Keppra) 500 mg PO Q12H lidocaine 5% 1 patch topical DAILY 30 days methocarbamol 750 mg PO Q8H PRN paroxetine HCl 40 mg PO BEDTIME paroxetine HCl 10 mg PO DAILY quetiapine 100 mg PO BEDTIME quetiapine 25 mg PO DAILY rosuvastatin (Crestor) 10 mg PO DAILY valacyclovir (Valtrex) 1,000 mg PO DAILY Tobacco use date assessed: 02/21/23 Dental Screening Dental Screen Date: 02/21/23 Did you have a dental visit in the last 12 months?: Yes Did you have a dental problem in the last 6 months where you did not have access to dental care?: No Was dental information given to patient?: Patient has dentist HPI Annual PE HPI Details Pt presents for PE. She follows up with Neurology for seizure disorder controlled on Keppra. Patient follows up with a pain management for advanced lumbar spinal stenosis and will have spinal stimulator trial. Chronic depression is stable on current medications and patient follows up with Psychiatry. [facility] Medical History Seizure disorder Syncope Cervical spondylosis with radiculopathy Cervical radiculopathy Cervical strain Neck pain Seroma due to trauma Hematoma following procedure Calf pain Incisional pain Postoperative bleeding from incision Cellulitis Anemia Anxiety with depression Fatty liver Back pain Arthritis Abscess or cellulitis of knee Skin laxity Hyperlipidemia Neutropenia GERD (gastroesophageal reflux disease) COVID-19 vaccine administered Sacroiliitis Postlaminectomy syndrome Bunion of left foot Postconcussion syndrome Labral tear of right hip joint Spinal stenosis Colon polyps Allergic rhinitis Herpes Chronic sinusitis Depression Migraines Asthma Hypotension Malabsorption due to intolerance, not elsewhere classified Surgical History Hx of spinal fusion S/P plastic surgery S/P panniculectomy History of hip surgery History of endometrial ablation S/P tonsillectomy S/P bilateral foot surgery History of appendectomy H/O colonoscopy H/O endoscopy S/P laparoscopic sleeve gastrectomy H/O laminectomy Family History Father No problems noted. Mother Cervical spine tumor Brother No problems noted. Brother No problems noted. Brother No problems noted. Brother No problems noted. Sister Mental health disorder Son No problems noted. Daughter No problems noted. Social History Household Members: Spouse Housing: House Are you a primary patient care associate to a significant other at home: No Do you presently have visiting nurse or other home services: No Alcohol intake: never Patient Tobacco Use Status: Former Tobacco user e-Cigarette/Vaping Use: Never Used Second Hand Smoke Exposure: No Substance Use Type: Marijuana Advance Directives Date on File: 08/28/21 service: No Current occupational status: disabled Cognitive needs: No Hearing needs: No Vision needs: No Questionnaire PHQ-9 Over the last 2 weeks, how often have you been bothered by any of the following problems? 1. Little interest or pleasure in doing things: not at all 2. Feeling down, depressed, or hopeless: not at all 3. Trouble falling or staying asleep, or sleeping too much: several days 4. Feeling tired or having little energy: not at all 5. Poor appetite or overeating: not at all 6. Feeling bad about yourself - or that you are a failure or have let yourself or your family down: not at all 7. Trouble concentrating on things, such as reading the newspaper or watching television: not at all 8. Moving or speaking so slowly that other people could have noticed. Or the opposite - being so fidgety or restless that you have been moving around a lot more than usual: not at all 9. Thoughts that you would be better off or of hurting yourself in some way: not at all Total score: 1 Depression Screening Interpretation: Negative Depression Screening Done: Yes Source: Developed by Drs. Koko Nunez, Codi Leslie, Mendoza Jack and colleagues, with an educational bronwyn from [employer]. Thrive Questionnaire Date Thrive assessed: 02/21/23 I am a: Patient What is your living situation today?: I have a steady place to live Within the past 12 months, did the food you bought not last and you didn't have the money to get more?: Never true Within the past 12 months, did you worry whether your food would run out before you got money to buy more?: Never true Do you have trouble paying for medicines?: No Do you have trouble getting transportation to medical appointments?: No Do you have trouble paying your heating and electricity bill?: No Do you have trouble taking care of your child, family member or friend?: No Do you have trouble with day-to-day activities such as bathing, preparing meals, shopping, managing finances, etc.?: No Are you currently unemployed and looking for a job?: No Are you interested in more education?: No Please select the resources that you would like help with: None AUDIT C Alcohol Use Questionnaire (AUDIT-C) 1. How often do you have a drink containing alcohol?: Never 3. How often do you have six or more drinks on one occasion?: Never Total Score: 0 FERNANDA-7 AMB Questionnaire FERNANDA-7 Date FERNANDA - 7 assessed: 02/21/23 Feeling nervous, anxious, or on edge: 0 = Not at all Not being able to stop or control worryin = Not at all Worrying too much about different things: 0 = Not at all Trouble relaxin = Not at all Being so restless that it is hard to sit still: 0 = Not at all Becoming easily annoyed or irritable: 0 = Not at all Feeling afraid as if something awful might happen: 0 = Not at all Total FERNANDA-7 score (0-4 normal; 5-9 mild; 10-14 moderate; 15-21 severe): 0 Source: Developed by Drs. Koko Nunez, Codi Leslie, Mendoza Jack and colleagues, with an educational bronwyn from [employer]. Review of Systems Const All systems reviewed & are unremarkable except as noted in HPI and below Reports no additional complaints Eyes Reports no additional complaints ENT Reports no additional complaints Card Reports no additional complaints Resp Reports no additional complaints GI Reports no additional complaints Reports no additional complaints Musc Reports no additional complaints Physical exam (Primary Care) Vital Signs: Last Vital Signs Pulse 71 02/21/23 08:11 BP 96/60 02/21/23 08:11 Pulse Ox 96 02/21/23 08:11 Oxygen Delivery Method Room Air 02/21/23 08:11 BMI result Body Mass Index 24.7 Tobacco/Smoking Status: Tobacco use Status Tobacco use date assessed 02/21/23 02/21/23 08:16 Patient Tobacco Use Status Former Tobacco user 02/21/23 08:16 e-Cigarette/Vaping Use Never Used 02/21/23 08:16 PHQ-9: PHQ-9 Score PHQ-9: Total score 1 02/21/23 08:16 Depression Screening Interpretation: Negative Thrive Assessment: Date of Thrive Assessment Date Thrive assessed 02/21/23 02/21/23 08:16 Const General: no acute distress HENMT Head: Yes normal to inspection Ears: hearing grossly normal bilaterally General nose exam: Normal external nose present Mouth: Normal oral and palatal mucosa present Throat: Yes posterior oropharynx normal Eyes General: appearance normal, both eyes and all related structures Neck Neck: Yes no lymphadenopathy and Yes supple Resp Effort & Inspection: normal respiratory effort Auscultation: clear to auscultation bilaterally Cardio Rhythm: regular rhythm Heart sounds: S1 normal heart sound present and S2 normal heart sound present GI Inspection: Yes normal to inspection Palpation (GI): Soft to palpation Percussion: Yes normal to percussion Auscultation: normal bowel sounds Assessment and Plan Assessment & Plan (1) Seizures: Comment: Follow-up with Neurology, controlled on Keppra Code(s): R56.9 - Unspecified convulsions Plan: Follow-up with neurology (2) Hyperlipidemia: Code(s): E78.5 - Hyperlipidemia, unspecified Plan: Continue crestor (3) Asthma: Comment: using Breo Ellipta daily. Stable Code(s): J45.909 - Unspecified asthma, uncomplicated Plan: Continue Breo (4) Anxiety with depression: Code(s): F41.8 - Other specified anxiety disorders Plan: Continue current medications (5) Annual physical exam: Code(s): Z00.00 - Encounter for general adult medical examination without abnormal findings Plan: Well-balanced diet regular physical activity discussed with the patient. She will return in 1 year for PE. Orders: Orders Comprehensive [place]ck. Panel Fast 365 Days E78.5 - Hyperlipidemia, unspecified, J45.909 - Unspecified asthma, uncomplicated, R56.9 - Unspecified convulsions, Z00.00 - Encounter for general adult medical examination without abnormal findings Lipid Panel 365 Days E78.5 - Hyperlipidemia, unspecified, J45.909 - Unspecified asthma, uncomplicated, R56.9 - Unspecified convulsions, Z00.00 - Encounter for general adult medical examination without abnormal findings Complete Blood Count Auto Diff 365 Days E78.5 - Hyperlipidemia, unspecified, J45.909 - Unspecified asthma, uncomplicated, R56.9 - Unspecified convulsions, Z00.00 - Encounter for general adult medical examination without abnormal findings TSH reflex Free T4 365 Days E78.5 - Hyperlipidemia, unspecified, J45.909 - Unspecified asthma, uncomplicated, R56.9 - Unspecified convulsions, Z00.00 - Encounter for general adult medical examination without abnormal findings Vitamin D 25-OH Total 365 Days E78.5 - Hyperlipidemia, unspecified, J45.909 - Unspecified asthma, uncomplicated, R56.9 - Unspecified convulsions, Z00.00 - Encounter for general adult medical examination without abnormal findings Coding Level of Care Code Est Pt Prev Care 40-64y(01801) Diagnoses Seizures R56.9 Hyperlipidemia E78.5 Asthma J45.909 Anxiety with depression F41.8 Annual physical exam Z00.00
[2023-02-21 08:11] VITALS: BP 96/60; PULSE 71; O2SAT 96; BMI 24.7
== END 2023-02-21 09:26 | disposition home or self-care (01) ==
PROVIDERS: PCP Internal Medicine; Visit Provider Internal Medicine
DX: R56.9 Unspecified convulsions (principal); E78.5 Hyperlipidemia, unspecified; J45.909 Unspecified asthma, uncomplicated; F41.8 Other specified anxiety disorders; Z00.00 Encounter for general adult medical examination without abnormal findings
CPT/HCPCS: 99396

== ENCOUNTER 2023-02-28 09:56 | Day surgery (SDC) | payer OTHER, SELFPAY ==
[2023-02-25 14:36] VITALS: BMI 24.3
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
[2023-02-28] VITALS (10 sets, daily range): BP systolic 99–133; BP diastolic 53–104; PULSE 64–90; RESP 15–18; TEMP 36.2–36.7; O2SAT 94–99; BMI 25.2
--- NOTE | ~2023-02-28 | FL_ITS ---
CLINICAL INDICATION: Low back pain. FINDINGS: Technical assistance and equipment were provided by the Department of Radiology during intraoperative fluoroscopy for spinal cord stimulation trial. For, limited fluoroscopic spot images are submitted. A radiologist was not present during the procedure. It is difficult to ascertain the exact levels due to possible transitional anatomy as well as incomplete bony landmarks on the images submitted. The tips of presumed stimulation probes project over the posterior spinal canal roughly over the superior endplates of T8 and T9. Multiple surgical clips project over the left upper quadrant. The images are available for review on PACS. TOTAL FLUOROSCOPY TIME: 7.0 minutes. DOSE AREA PRODUCT: 22.6 Gy-cm2 (zarate-centimeter squared) FL/FL guidance in OR IMPRESSION: Technical assistance and equipment provided by the Department of Radiology during intraoperative fluoroscopy, as above. Please see operative report for further details.
--- NOTE | 2023-02-28 11:48 | P.HPSUR_ITS ---
Pre-Procedural Eval Section A Date of Service: 02/28/23 The patient is an INPATIENT: No Changes since office visit: Yes Patient answered all questions The History & Physical has been completed within 30 days and I have reviewed it.: No Section B Chief Complaint: Postlaminectomy syndrome, not elsewhere classified Details of Present Illness: as above Relevant Family History (Specify if Yes): No Relevant Social History: None Present Medications: None Medical History: No relevant PMH History of Previous Operations: Relevant previous surgery/procedure and date(s) Allergies: Allergies Allergy/AdvReac Type Severity Reaction Status Date / Time Iodinated Contrast Media Allergy Intermediate HIVES Verified 02/28/23 11:31 [Iodinated Contrast Media - IV Dye] ketorolac [From Toradol] Allergy Intermediate localized Verified 02/28/23 11:31 redness/swelling Review of Systems Sugical H&P ROS: Negative: Constitution, Cardiovascular, Respiratory, Neur ological, Psychiatric, Hem-Onc, Allergic/Immunologic, Gastrointestinal, Genitourinary, Integumentary, Endocrine and Eyes/Ears/Nose/Throat and Yes, Specify: Musculoskeletal (postlaminectomy syndrome) Exam Surgical H&P Exam: Normal: HEENT, Normal: Heart, Normal: Lungs, Normal: Extremities, Normal: Abdomen, Normal: Skin and Normal: Neurological Plan Diagnosis/Plan: Unchanged I have reviewed the history and physical and performed a pertinent physical examination on my patient. No changes have occurred unless specified. Time Spent With Patient Time: Total time managing care of this patient today ____ minutes.
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
[2023-02-28] MEDS: Lactated Ringers 1,000 ML 100 ML IVCONT (12:06)
[2023-02-28] MEDS: LORazepam 2 MG/ML VIAL 1 MG IVPUSH ×2 (13:52→13:55)
[2023-02-28] MEDS: LORazepam 2 MG/ML VIAL IVPUSH (14:00)
--- NOTE | 2023-02-28 14:01 | P.OP_ITS ---
Operative Note Operative Note Date of Service: 02/28/23 Narrative: Trial of spinal cord stimulator Nevro. Therese's very pleasant 62 years old female who came to the operating room for trial of spinal cord stimulator Nevro for the treatment of postlaminectomy syndrome. ?Preoperatively patient received ? cefazolin 2 g approximately thirty minutes before the procedure. After obtaining informed consent the patient was brought to the operating room, she was positioned prone on operating table, ASA monitor were applied and the patient was sedated. ?Time-out was performed delineating correct site, side, the nature of the procedure, patient's allergy, preoperative antibiotic if needed.? All operating room staff was participating in OR time-out procedure. Patient's entire back was prepped with Chloraprep twice and draped with full body fenestrated laparoscopy drape.? Sterilely draped C-arm was brought over operating field and square picture of the t12, L1 and L2 vertebrae? were demonstrated on the screen.? ?Attention FIRST? was concentrated on the T12 L1 epidural interspace. Right pedicle of the L2 vertebra was located on the screen and the projection of the pedicle was injected with 5 cc of lidocaine 2% mixture with ropivacaine 0.5% mixture 1-1.After that 11 blade was used to make a nayana on the skin.? 10 cm 14 gauge? introducer epidural needle was inserted through the nayana and advanced to T12-L1 epidural interspace.? The advancement of the needle was performed on anterior posterior and lateral views.?Loss of resistance to air? technique were used to locate epidural space., guitar wire was used to confirm epidural space,epidural lead was inserted through the needle and? advanced to the projection of the top T8 vertebral body strictly on the midline. Lateral view demonstrated posterior position of the lead. ? .? After that? the location of the projection of the LEFT pedicle center of the? [id number] was found on the skin using C-arm.? This location was injected with mixture of lidocaine 2% and Marcaine 0.5% 5 cc.? After that 11 blade was used to make a nayana on the skin.? 10 cm 14 gauge introducer epidural needle was inserted through the nayana and advanced to T12-L1 epidural interspace.? The advancement of the needle was performed on anterior posterior and lateral views.? Guitar wire and loss of resistance to air technique were used to locate epidural space.? Unfortunately at this level on the left side I was not able to locate epidural space even though I saw the tip of my needle in the projection of the interlaminar line on the lateral view and in the center of the intervertebral space on the anterior posterior view I still felt bone like resistance and was not able to advance needle further. The decision was made to switch the level of insertion to T11-T12 epidural space. The left pedicle of the L1 vertebra was located on the screen and the projection of the pedicle was injected with 5 cc of lidocaine 2% mixture with ropivacaine 0.5% mixture 1-1.After that 11 blade was used to make a nayana on the skin.? 10 cm 14 gauge? introducer epidural needle was inserted through the nayana and advanced to T11-T12 epidural interspace.? The advancement of the needle was performed on anterior posterior and lateral views.?Loss of resistance to air? technique were used to locate epidural space., the advancement of the needle was also difficult at this area however I felt loss of resistance to the air when the tip of the needle on the lateral view was discovered at the posterior interlaminar line. guitar wire was used to confirm epidural space,epidural lead was inserted through the needle and? advanced to the pr ojection of the top T9 vertebral body 3 mm right to the existing electrode. The position of the electrode was less than ideal however it was the best which I could accomplish in the circumstances. The patient most likely had severe calcifications and might be adhesions in the left side of the epidural space. The lateral view demonstrated both leads positioned in posterior epidural space without any deviation. t Impedance was checked? and it was found to be satisfactory.? Posterior lead placement was verified by lateral x-ray ?The needles were withdrawn, the stylette wires were removed from the epidural leads.? The anchoring devices were dislodged on the leads and advanced to the level of the skin.? The anchoring devices were sutured with two 0-0 ?Silk sutures per each anchor to the skin of the patient. The central fixation screw of each anchor was rotated until three clicks were heard. The leads were connected to testing device.? Sterile dressing was applied to the patient's back.? The testing device was also taped to the patient's back.? the patient tolerated procedure well she was awaken and taken outside of the operating room to recovery room. she recovered uneventfully .
--- NOTE | 2023-02-28 14:10 | P.BOP_ITS ---
Brief Operative Note Date of Service: 02/28/23 Pre-op diagnosis: Postlaminectomy syndrome Post-op diagnosis: same Procedure: Trial of Nevro SCS. Implants: None permanent Surgeon: Arie Patricia MD Anesthesia: MAC Was an Spindle Sander used for this Procedure?: No Estimated blood loss (mL): 2 Condition: stable Disposition: PACU
== END 2023-02-28 16:04 | disposition home or self-care (01) ==
PROVIDERS: PCP Internal Medicine; Visit Provider Anesthesiology
PROC: (CPT 63650; principal; 2023-02-28 12:20)
DX: M96.1 Postlaminectomy syndrome, not elsewhere classified (principal); G89.4 Chronic pain syndrome; M46.1 Sacroiliitis, not elsewhere classified; M47.27 Other spondylosis with radiculopathy, lumbosacral region; M47.816 Spondylosis without myelopathy or radiculopathy, lumbar region; M47.22 Other spondylosis with radiculopathy, cervical region; M54.51 Vertebrogenic low back pain; M70.61 Trochanteric bursitis, right hip; D64.9 Anemia, unspecified; G40.909 Epilepsy, unspecified, not intractable, without status epilepticus; I70.0 Atherosclerosis of aorta; F41.8 Other specified anxiety disorders; Z79.51 Long term (current) use of inhaled steroids; Z79.899 Other long term (current) drug therapy; Z91.041 Radiographic dye allergy status; Z88.8 Allergy status to other drugs, medicaments and biological substances; Z98.890 Other specified postprocedural states; Z87.891 Personal history of nicotine dependence; F12.90 Cannabis use, unspecified, uncomplicated
CPT/HCPCS: 63650 ×2; C1713; C1897; J0690; J1100; J2060; J2250; J2704; J2795; J3010

== ENCOUNTER → 2023-02-28 09:56 | Outpatient (BNV) | payer OTHER, SELFPAY | PROVIDERS: PCP Internal Medicine; Visit Provider Anesthesiology | DX: M96.1 Postlaminectomy syndrome, not elsewhere classified (principal) | CPT/HCPCS: 63650 ==

== ENCOUNTER 2023-03-03 13:02 | Outpatient (REF) | payer OTHER, SELFPAY ==
--- NOTE | ~2023-03-03 | XR_ITS ---
EXAMINATION: XR THORACIC SPINE CLINICAL INFORMATION: Evaluate electrodes. COMPARISON: None available. TECHNIQUE: 3 views of the thoracic spine were obtained. FINDINGS: Other than minor dextroscoliosis, alignment is normal. Vertebral bodies and intervertebral discs are maintained in height. Pedicles and visualized ribs are intact. Left upper quadrant surgical clips and lower cervical stabilizing hardware seen. There are 2 spinal stimulators, the most superior proximal tip at the mid/upper T8 vertebral body level. Heart, mediastinum and visualized lung pedraza within normal limits. XR/XR thoracic spine 3V IMPRESSION: Minor dextroscoliosis. Spinal stimulator wires as described.
== END 2023-03-03 13:03 | disposition home or self-care (01) ==
LOC: HO.XRAY 13:02
PROVIDERS: PCP Internal Medicine; Visit Provider Anesthesiology
DX: M47.816 Spondylosis without myelopathy or radiculopathy, lumbar region (principal); T85.192A Other mechanical complication of implanted electronic neurostimulator of spinal cord electrode (lead), initial encounter
CPT/HCPCS: 72072

== ENCOUNTER 2023-03-06 09:29 | Outpatient (AMB) | payer OTHER, SELFPAY ==
--- NOTE | 2023-03-06 09:30 | MHC.OFFVIS ---
Intake Vital Signs 03/06/23 09:40 Height 5 ft 7 in Weight 162 lb 6 oz BMI 25.4 BP 132/72 Blood Pressure Location Lt brachial Position Sitting Respiration 14 Pulse 70 Pulse Source Pulse Oximeter Pulse Oximetry (%) 98 Oxygen Delivery Method Room Air Intake Visit Reasons: S/p NEVRO SCS Trial 02/28/23/confirmed Intake Note: Patient comes in for post-op appointment. Reports pain 8/10. Allergies Iodinated Contrast Media [Iodinated Contrast Media - IV Dye] Allergy (Intermediate, Verified 03/06/23 09:41) HIVES ketorolac [From Toradol] Allergy (Intermediate, Verified 03/06/23 09:41) localized redness/swelling HPI HPI Comments History of Present Illness Details Therese is in my office today to discuss her painful conditions and for the follow-up. She went for the trial of Nevro SCS and due to severe heaving nausea and vomiting postoperatively she happened to dislodged of the properly positioned electrodes 1-1/2 vertebral bodies down. So the top electrode was at top of T9 and the bottom electrode move down to T10. Nevro dairy supplies sales representative try to do maximum of pain relief from the situation however she reported no pain improvement whatsoever. In the past she was interested in intrathecal pain pump. I will schedule her for intrathecal pain pump trial with bupivacaine. I will see her after the trial. The dose of bupivacaine will be 2 mg. She is suffering from postlaminectomy s-jeri she never had hardware in her back.she went for the diagnostic MBB L3- L4- DRL5 on 12/24/2022. Her pain before the procedure was 8/10. immediately after the procedure her pain became 5/10. 3 hours the pain remained at 5/10 and at the forth hour it returned to almost preinjection level of 7/10. I cannot consider this diagnostic injection as an indicator of a pain generator. She reports that flexing forward and flexing backwards aggravates her pain but she reports that flexing backwards aggravate her pain more than flexing forward. However she states that prolong sitting and walking making her pain worse. Her pain is in axial back with radiation to the right hip and right groin. She had an x-ray of the right hip joint and it was completely normal. steroid injections are contraindicated to her because of the right eye condition, her access director told her to avoid any steroid locations. We discussed possibility of treating her pain with neuromodulation then. I offered her I DDD and SCS. I am thinking about Nevro spinal cord stimulator. She was sent for past psychological evaluation however she for the past month did not receive any telephone calls from [facility]. vertebrogenic pain cannot be excluded, will send her for MRI for evaluation of Modic type changes. She was sent for the MRI and the order is still standing: MRI staff tried to contact her and they were not able to reach her. This was conveyed to the patient. Also during the procedure attention was attracted to a silhouette of heavily calcified aorta and common illac artheries. Referal to the vascular surgery was made. Prior:She received caudal epidural steroid injection and right greater trochanter injection on the 08/21/2022. Even though caudal BETSEY was help she reported that she had pain improvement only for 3 weeks. She reported 80% pain improvement for radicular pain. This is not enough for me to continue this procedures in the future.She reported that this procedure was most helpful for her pain. Before that she received therapeutic sacroiliac joint injection done b Dr. Chun. Unfortunately she reported no pain improvement after this procedure. [facility] Medical History Seizure disorder Syncope Cervical spondylosis with radiculopathy Cervical radiculopathy Cervical strain Neck pain Seroma due to trauma Hematoma following procedure Calf pain Incisional pain Postoperative bleeding from incision Cellulitis Anemia Anxiety with depression Fatty liver Back pain Arthritis Abscess or cellulitis of knee Skin laxity Hyperlipidemia Neutropenia GERD (gastroesophageal reflux disease) COVID-19 vaccine administered Sacroiliitis Postlaminectomy syndrome Bunion of left foot Postconcussion syndrome Labral tear of right hip joint Spinal stenosis Colon polyps Allergic rhinitis Herpes Chronic sinusitis Depression Migraines Asthma Hypotension Malabsorption due to intolerance, not elsewhere classified Surgical History Hx of spinal fusion S/P plastic surgery S/P panniculectomy History of hip surgery History of endometrial ablation S/P tonsillectomy S/P bilateral foot surgery History of appendectomy H/O colonoscopy H/O endoscopy S/P laparoscopic sleeve gastrectomy H/O laminectomy Family History Father No problems noted. Mother Cervical spine tumor Brother No problems noted. Brother No problems noted. Brother No problems noted. Brother No problems noted. Sister Mental health disorder Son No problems noted. Daughter No problems noted. Social History Household Members: Spouse Housing: House Are you a primary pharmacy customer care specialist to a significant other at home: No Do you presently have visiting nurse or other home services: No Alcohol intake: never Comment: count correct Patient Tobacco Use Status: Never used Tobacco e-Cigarette/Vaping Use: Never Used Second Hand Smoke Exposure: No Substance Use Type: Marijuana Advance Directives Date on File: 08/28/21 service: No Current occupational status: disabled Cognitive needs: No Hearing needs: No Vision needs: No Review of Systems Const All systems reviewed & are unremarkable except as noted in HPI and below ENT Reports Normal hearing present Neuro Reports Normal hearing present and Denies confusion Psych Denies confusion Physical Exam Const General: cooperative, alert and awake; No confusion Orientation/consciousness: patient oriented x3 and No confusion Resp Effort & Inspection: able to speak in complete sentences, no audible wheezes and no cough Back/Spine/Pelvis Other: Loading test is positive bilaterally tenderness on palpation on lower lumbar and mid lumbar spine, paraspinal regions are less tender on palpation in the area however also cause significant tenderness. Flexing forward and flexing backwards both aggravate pain with flexing backwards to be more aggravating than flexing forward. Neuro General: patient oriented x3 and No confusion Cranial nerves: Yes Normal hearing present Cognition (Neuro): normal cognition Psych Mental Status: mental status grossly normal Speech and movement: Clear speech present Affect: normal affect Attitude: cooperative Thought process: Normal thought process present Thought content: Normal thought content present and No Depressive thoughts present Insight: Good insight present (Psych) Judgement: Good judgement present (Psych) Assessment & Plan Assessment & Plan (1) Calcification of aorta: Code(s): I70.0 - Atherosclerosis of aorta (2) Arterial calcification: Code(s): I70.90 - Unspecified atherosclerosis (3) Trochanteric bursitis of right hip: Code(s): M70.61 - Trochanteric bursitis, right hip (4) Lumbosacral spondylosis with radiculopathy: Code(s): M47.27 - Other spondylosis with radiculopathy, lumbosacral region (5) Right hip pain: Code(s): M25.551 - Pain in right hip (6) Failed back syndrome, lumbar: Code(s): M96.1 - Postlaminectomy syndrome, not elsewhere classified Plan: (7) Chronic pain syndrome: Code(s): G89.4 - Chronic pain syndrome (8) Sacroiliitis: Comment: S/p SI joint steroid injection 08/27/19, 12/08/20, 11/16/21 Code(s): M46.1 - Sacroiliitis, not elsewhere classified (9) Vertebrogenic low back pain: Code(s): M54.51 - Vertebrogenic low back pain (10) Spondylosis of lumbar region without myelopathy or radiculopathy: Code(s): M47.816 - Spondylosis without myelopathy or radiculopathy, lumbar region Plan Patient is status post caudal BETSEY and right GTB injection on 08/21/22 and Right Therapeutic SIJ injection on 07/24/22 . Caudal BETSEY provided 80% pain relief for radicular back symptoms with improvement in her daily functions and activities. That lasted 3 weeks only. I cannot consider caudal BETSEY repeatin the future for her. Now she is losing eye site on the right eye and her access director forbade her to have any steroid injections. the therapeutic injections are impossible to treat her pain in the future. MBB resulted in no pain improvement. I think neuromodulation would be very good thing to do for this patient. MBB resulted in no pain improvement. History of axial pain and pain exacerbated with prolonged sitting give the makes me think about vertebrogenic pain. She went for MRI which demonstrated vertebral Modic type changes. However given the choice between spinal cord stimulator and intrathecal pain pump pain relief for this patient which do not require steroid administration and intercept procedure which might require significant doses of steroids I decided to proceed with neuromodulation as Nevro SCS and I DDD [employer]. The patient came today after Nevro SCS was tried on her. She dislodged her electrode due to severe having nausea and vomiting at least 1 full vertebral body down however the top electrode still was positioned at the top of T9 which could potentially give us significant pain relief due to stimulation. However patient denied any help from stimulation. We agreed today that I will schedule her for intrathecal drug delivery system pain pump trial with bupivacaine 2 mg Of note in 2 years she is moving to [place] Patient Instructions: I here by testify that I spent 30 minutes in conversation with this patient as well as planning her care and organizing this note. Coding Level of Care Code Est Pt Level 4 (25247) Diagnoses Calcification of aorta I70.0 Arterial calcification I70.90 Trochanteric bursitis of right hip M70.61 Lumbosacral spondylosis with radiculopathy M47.27 Right hip pain M25.551 Failed back syndrome, lumbar M96.1 Chronic pain syndrome G89.4 Sacroiliitis M46.1 Vertebrogenic low back pain M54.51 Spondylosis of lumbar region without myelopathy or radiculopathy M47.816
[2023-03-06 09:40] VITALS: BP 132/72; PULSE 70; RESP 14; O2SAT 98; BMI 25.4
== END 2023-03-06 09:45 | disposition home or self-care (01) ==
PROVIDERS: PCP Internal Medicine; Visit Provider Anesthesiology
DX: I70.0 Atherosclerosis of aorta (principal); I70.90 Unspecified atherosclerosis; M70.61 Trochanteric bursitis, right hip; M47.27 Other spondylosis with radiculopathy, lumbosacral region; M25.551 Pain in right hip; M96.1 Postlaminectomy syndrome, not elsewhere classified; G89.4 Chronic pain syndrome; M46.1 Sacroiliitis, not elsewhere classified; M54.51 Vertebrogenic low back pain; M47.816 Spondylosis without myelopathy or radiculopathy, lumbar region
CPT/HCPCS: 99024

== ENCOUNTER → 2023-03-06 09:29 | Outpatient (BNVA) | payer OTHER, SELFPAY | PROVIDERS: PCP Internal Medicine; Visit Provider Anesthesiology | DX: I70.0 Atherosclerosis of aorta (principal); I70.90 Unspecified atherosclerosis; M70.61 Trochanteric bursitis, right hip; M47.27 Other spondylosis with radiculopathy, lumbosacral region; M25.551 Pain in right hip; M96.1 Postlaminectomy syndrome, not elsewhere classified | CPT/HCPCS: 99212 ==

== ENCOUNTER 2023-03-10 08:11 | Outpatient (AMB) | payer OTHER, SELFPAY ==
--- NOTE | 2023-03-10 08:16 | A.OFFVIS_ITS ---
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 Accompanied by: Self / Same As Patient Allergies Iodinated Contrast Media [Iodinated Contrast Media - IV Dye] Allergy (Intermediate, Verified 03/10/23 08:23) HIVES ketorolac [From Toradol] Allergy (Intermediate, Verified 03/10/23 08:23) localized redness/swelling Medication List - Last Reconciled 03/10/23 by Honorio Byers MD albuterol sulfate 90 mcg/actuation (ProAir HFA) 2 puffs inhalation Q4-6H PRN brimonidine 0.2% 1 drp ophthalmic (eye) BID bhcjkliyit-bnhsuybjlsoie-ssdg 50-325-40 mg 1 tab PO Q6H PRN clindamycin HCl 300 mg PO Q6H 4 days clonazepam 1 mg PO BID fluticasone furoate-vilanterol 200-25 mcg/dose (Breo Ellipta) 1 inh inhalation DAILY fluticasone propionate 50 mcg/actuation 1 spray intranasal DAILY gabapentin 600 mg PO BID levetiracetam (Keppra) 500 mg PO Q12H lidocaine 5% 1 patch topical DAILY 30 days methocarbamol 750 mg PO Q8H PRN ondansetron 4 mg PO Q8H PRN 6 days paroxetine HCl 40 mg PO BEDTIME paroxetine HCl 10 mg PO DAILY quetiapine 100 mg PO BEDTIME quetiapine 25 mg PO DAILY rosuvastatin (Crestor) 10 mg PO DAILY sumatriptan succinate mg PO valacyclovir (Valtrex) 1,000 mg PO DAILY HPI HPI Comments History of Present Illness Details Therese returns for follow up regarding low blood pressure issues. To recall, she was originally seen as a preoperative evaluation for bariatric surgery. Then underwent gastric sleeve surgery in 2019. She lost lot of weight secondary to this. Subsequently, she was running a lot of low blood pressures and hence numerous dizzy episodes and syncopal episodes. Prior to surgery, she had borderline elevated blood pressure and was on hydrochlorothiazide but she is not on that anymore. We have tried on numerous medications including midodrine and Florinef without any significant improvement. She is off all of these. She also tried Northera but developed cramps and hence stopped taking that. Since last seen, she actually states she has not had any syncope episode but apparently had 1 episode of seizure and follows with neurology. She has not on any medications for low blood pressure anymore. No other cardiac symptoms. Doing good. [facility] Medical History Seizure disorder Syncope Cervical spondylosis with radiculopathy Cervical radiculopathy Cervical strain Neck pain Seroma due to trauma Hematoma following procedure Calf pain Incisional pain Postoperative bleeding from incision Cellulitis Anemia Anxiety with depression Fatty liver Back pain Arthritis Abscess or cellulitis of knee Skin laxity Hyperlipidemia Neutropenia GERD (gastroesophageal reflux disease) COVID-19 vaccine administered Sacroiliitis Postlaminectomy syndrome Bunion of left foot Postconcussion syndrome Labral tear of right hip joint Spinal stenosis Colon polyps Allergic rhinitis Herpes Chronic sinusitis Depression Migraines Asthma Hypotension Malabsorption due to intolerance, not elsewhere classified Surgical History Hx of spinal fusion S/P plastic surgery S/P panniculectomy History of hip surgery History of endometrial ablation S/P tonsillectomy S/P bilateral foot surgery History of appendectomy H/O colonoscopy H/O endoscopy S/P laparoscopic sleeve gastrectomy H/O laminectomy Family History Father No problems noted. Mother Cervical spine tumor Brother No problems noted. Brother No problems noted. Brother No problems noted. Brother No problems noted. Sister Mental health disorder Son No problems noted. Daughter No problems noted. Social History Household Members: Spouse Housing: House Are you a primary pharmacy customer care specialist to a significant other at home: No Do you presently have visiting nurse or other home services: No Alcohol intake: never Comment: count correct Patient Tobacco Use Status: Never used Tobacco e-Cigarette/Vaping Use: Never Used Second Hand Smoke Exposure: No Substance Use Type: Marijuana Advance Directives Date on File: 08/28/21 service: No Current occupational status: disabled Cognitive needs: No Hearing needs: No Vision needs: No Review of Systems Const Denies weakness ENT Denies dizziness Card Denies chest pain, Denies chest pain with activity, Denies syncope, Denies rapid heart rate, Denies pedal edema, Denies edema, Denies leg edema, Denies lightheadedness, Denies palpitations, Denies dyspnea, Denies dyspnea on exertion and Denies orthopnea Resp Denies cough, Denies dyspnea and Denies dyspnea on exertion GI Denies hematochezia and Denies change in stool character Musc Denies abnormal gait, Denies muscle cramps, Denies muscle weakness, Denies numbness, Denies radiating pain into limb and Denies tingling Neuro Denies abnormal gait, Denies dizziness, Denies syncope, Denies numbness, Denies tingling and Denies weakness Endo Denies palpitations Physical Exam Vital Signs: Last Vital Signs Pulse 67 03/10/23 08:21 BP 110/60 03/10/23 08:21 BMI result Body Mass Index 25.5 Const General: comfortable and no acute distress Orientation/consciousness: patient oriented x3 HEENT Other: Unremarkable Head: Yes normal to inspection Neck Neck: Yes normal visual inspection Chest Chest palpation & inspection: normal inspection of the chest Resp Auscultation: clear to auscultation bilaterally Cardio Palpation: normal PMI Heart sounds: S1 normal heart sound present, S2 normal heart sound present, no gallops, no murmurs and no rubs GI Palpation (GI): Soft to palpation Back/Spine/Pelvis Other: unremarkable Skin General skin exam: no rashes or lesions noted Neuro General: patient oriented x3 Extrem General: Yes normal to inspection Psych Mental Status: mental status grossly normal Assessment & Plan Assessment & Plan (1) Syncope and collapse: Code(s): R55 - Syncope and collapse (2) Orthostatic hypotension: Code(s): I95.1 - Orthostatic hypotension (3) S/P laparoscopic sleeve gastrectomy: Comment: 07/16/18 Code(s): Z98.84 - Bariatric surgery status Plan Overall, stable from cardiac standpoint without any recurrent syncopal episodes. Blood pressure might have improved as she has also gained some weight. Hence probably avoid any significant weight loss as that seems to promote hypotension and syncope. In the future, she will call us with ongoing concerns. Coding Level of Care Code Est Pt Level 3 (00953) Diagnoses Syncope and collapse R55 Orthostatic hypotension I95.1 S/P laparoscopic sleeve gastrectomy Z98.84
[2023-03-10 08:21] VITALS: BP 110/60; PULSE 67; BMI 25.5
== END 2023-03-10 08:42 | disposition home or self-care (01) ==
PROVIDERS: Visit Provider Internal Medicine
DX: R55 Syncope and collapse (principal); I95.1 Orthostatic hypotension; Z98.84 Bariatric surgery status
CPT/HCPCS: 99213

== ENCOUNTER → 2023-03-10 08:11 | Outpatient (BNVA) | payer OTHER, SELFPAY | PROVIDERS: Visit Provider Internal Medicine | DX: I95.1 Orthostatic hypotension (principal); R55 Syncope and collapse; Z98.84 Bariatric surgery status | CPT/HCPCS: 99212 ==

== ENCOUNTER 2023-06-03 12:32 | Emergency (ER) | payer MEDICARE, MEDICAID, SELFPAY ==
[2023-06-03 12:42] VITALS: BP 136/90; PULSE 95; RESP 16; TEMP 36.9; O2SAT 98; BMI 26.6
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
[2023-06-03 13:45] LABS: Appearance Urine Clear; Color Urine Dark Yellow; Glucose Urine UA Negative (Negative); Leukocyte Esterase Urine Negative (Negative); Nitrite Urine Negative (Negative); Specific Gravity - Urine >= 1.030 (1.005-1.025); UPreg QC Valid YES; Urine Blood Negative (Negative); Urine Ketones Trace mg/dL (Negative); Urine Pregnancy NEGATIVE (NEGATIVE); Urine Protein Trace mg/dL (Neg-Trace)
[2023-06-03 13:53] LABS: Amphetamine Screen Urine Not Detected (Not Detect); Barbiturates, Urine POSITIVE (Not Detect); Benzodiazepines Screen Urine Not Detected (Not Detect); Cannabinoid Screen Urine POSITIVE (Not Detect); Cocaine Screen Urine Not Detected (Not Detect); Fentanyl, urine Not Detected (Not Detect); Opiate Screen Urine Not Detected (Not Detect); Phencyclidine Screen Urine Not Detected (Not Detect)
[2023-06-03 14:20] LABS: MANUAL DIFF FLAG NO
[2023-06-03 14:25] LABS: Basophils Percent Auto 0.7 % (0-2); Eosinophils Absolute Auto 0.1 X10*3/uL (0.0-0.4); Eosinophils Percent Auto 1.2 % (0-4); Hematocrit 38.6 % (37.0-47.0); Hemoglobin 13.5 g/dl (12.0-16.0); Imm Gran Abs Auto 0.01 X10*3/uL (0.00-0.03); Imm Gran Pct Auto 0.2 % (0.0-0.4); Lymphocytes Absolute Auto 1.3 X10*3/uL (1.2-4.9); Lymphocytes Percent Auto 20.8 % (20-40); Mean Corpuscular Hemoglobin 32.1 pg (27.0-33.0); Mean Corpuscular Volume 91.7 fL (80.0-98.0); Mean Platelet Volume 9.5 fL (9.4-12.3); Monocytes Absolute Auto 0.6 X10*3/uL (0.1-1.2); Monocytes Percent Auto 9.6 % (2-11); Neutrophils Absolute Auto 4.1 x10*3/uL (2.0-8.3); Neutrophils Percent Auto 67.5 % (45-73); Platelet Count 232 X10*3/uL (160-400); Red Blood Count 4.21 X10*6/uL (4.20-5.50); Red Cell Distribution Width 12.6 % (11.0-16.0)
[2023-06-03 14:48] LABS: Anion Gap 14 (12-20); Blood Urea Nitrogen 18 mg/dL (9-16); Carbon Dioxide 26 mmol/L (22-29); Chloride 106 mmol/L (96-108); Estimated Glomerular Filt Rate > 60; Ethanol < 10 mg/dL; Glucose Random 112 mg/dL (60-115); Potassium 4.7 mmol/L (3.3-5.1); Sodium 141 mmol/L (135-145)
--- NOTE | 2023-06-03 16:45 | PC.NURSE ---
med rec completed with patient, provider notified. Controlled meds counted by two nurses, bag sealed in patients presence and given to pharmacist
[2023-06-03] MEDS: Gabapentin 600 MG TABLET PO (18:08)
[2023-06-03] MEDS: levETIRAcetam 500 MG TABLET PO (18:09)
[2023-06-03] MEDS: Butalb/Acetamin/Caff 50/325/40 TABLET 1 TAB PO (18:29)
[2023-06-03 18:46] VITALS: BP 136/90; PULSE 95; RESP 18; TEMP 36.9; O2SAT 98
--- NOTE | 2023-06-03 18:56 | PC.NURSE ---
home medications returned to patient upon discharge
== END 2023-06-03 18:56 | disposition home or self-care (01) ==
PROVIDERS: Physician Assistant; Emergency Provider Emergency Medicine Emergency Medical Services; PCP Internal Medicine
DX: R45.851 Suicidal ideations (principal); G40.909 Epilepsy, unspecified, not intractable, without status epilepticus; F41.9 Anxiety disorder, unspecified; F32.A Depression, unspecified; Z79.899 Other long term (current) drug therapy
CPT/HCPCS: 36415; 80048; 80307; 81003; 81025; 85025; 99284; S9485

== ENCOUNTER 2023-08-01 08:50 | Outpatient (REF) | payer MEDICARE, SELFPAY | END 2023-08-01 08:51 | disposition home or self-care (01) | LOC: HO.MAMMO 08:50 | PROVIDERS: PCP Internal Medicine; Visit Provider Internal Medicine | DX: Z12.31 Encounter for screening mammogram for malignant neoplasm of breast (principal) | CPT/HCPCS: 77063; 77067 ==

== ENCOUNTER → 2023-08-01 09:15 | Outpatient (BNV) | payer MEDICARE, SELFPAY | PROVIDERS: PCP Internal Medicine; Visit Provider Radiology Diagnostic Radiology | DX: Z12.31 Encounter for screening mammogram for malignant neoplasm of breast (principal) | CPT/HCPCS: 77063; 77067 ==

== ENCOUNTER 2023-10-28 11:52 | Observation (INO) | payer OTHER, SELFPAY ==
[2023-10-28] VITALS (7 sets, daily range): BP systolic 90–137; BP diastolic 48–102; PULSE 64–79; RESP 14–16; TEMP 36.5–36.7; O2SAT 98–100; BMI 22.2
--- NOTE | ~2023-10-28 | CT_ITS ---
EXAMINATION: CT HEAD WITHOUT CONTRAST CT CERVICAL SPINE WITHOUT CONTRAST CLINICAL INFORMATION: Syncope. Head strike. COMPARISON: CT head and cervical spine from 05/02/2022. TECHNIQUE: Contiguous axial imaging was performed from the skull base to vertex without intravenous administration of contrast. Contiguous axial imaging was performed from the upper chest through the skull base without intravenous administration of contrast. Coronal and sagittal reformats were obtained at the acquisition workstation. This CT examination was performed using dose optimization techniques as appropriate, variously including the following: *Automated exposure control. *Adjustment of mA and/or kV according to patient size (this includes techniques or standardized protocols for targeted exams where dose is matched to indication/reason for exam; i.e. extremities or head). *Use of iterative reconstruction technique. DLP: 829 mGy-cm FINDINGS: Head: There is no evidence of acute intracranial hemorrhage or edematous territorial infarction. Wen-white matter differentiation is preserved. There is no abnormal attenuation within the brain parenchyma. The ventricles are normal in morphology and size. No evidence for obstructive hydrocephalus. No abnormal mass effect or midline shift. No extra-axial fluid collections. Calcific atherosclerotic disease of the intracranial internal carotid and vertebral arteries. No hyperdense vessel sign. No acute soft tissue or osseous abnormalities. Mild mucosal thickening of the paranasal sinuses. The mastoid air cells and middle ear cavities are clear. Cervical Spine: Interbody fusion devices in place at C5-C6 and C6-C7. Straightening of the normal cervical lordosis. The atlantooccipital and atlantoaxial articulations remain well aligned. Straightening of the normal cervical lordosis. Otherwise, there is anatomic alignment of the vertebral bodies and posterior elements. No evidence of acute fracture or subluxation. The vertebral body heights are maintained. Advanced degenerative disc disease at C4-C5. Mild degenerative disc disease at all additional levels. Facet and uncovertebral joint arthropathy leads to osseous encroachment on the neural foramina from C4-C6. There is no prevertebral soft tissue swelling. The thyroid gland and remaining cervical soft tissues are within normal limits. The lung apices demonstrate no abnormalities. CT/CT cervical spine wo IV con IMPRESSION: 1. No evidence of acute intracranial hemorrhage or edematous territorial infarction. 2. No evidence of acute fracture or traumatic subluxation of the cervical spine. 3. Moderate multilevel degenerative spondyloarthropathy of the cervical spine. Electronically signed by: Dany Velázquez DO 10/28/2023 03:44 PM EDT RP
--- NOTE | ~2023-10-28 | CT_ITS ---
EXAMINATION: CT HEAD WITHOUT CONTRAST CLINICAL INFORMATION: Fall COMPARISON: None available. TECHNIQUE: Contiguous axial imaging was performed from the skull base to vertex without intravenous administration of contrast. This CT examination was performed using dose optimization techniques as appropriate, variously including the following: *Automated exposure control *Adjustment of mA and/or kV according to patient size (this includes techniques or standardized protocols for targeted exams where dose is matched to indication/reason for exam; i.e. extremities or head) *Use of iterative reconstruction technique DLP: 537 mGy-cm RESULTS: There is no evidence of acute intracranial hemorrhage, acute large vessel infarct, midline shift or mass effect. The zarate-white differentiation is preserved. The ventricles and sulci are within normal limits in size and configuration. There is no evidence of hydrocephalus. There are no extraaxial collections. Osseous structures are intact. Paranasal sinuses and mastoid air cells are well aerated. CT/CT head/brain wo IV con IMPRESSION: No acute intracranial pathology. Electronically signed by: Ilsa Mckay MD 10/28/2023 07:27 PM EDT
--- NOTE | ~2023-10-28 | XR_ITS ---
EXAMINATION: XR CHEST CLINICAL INFORMATION: Syncope COMPARISON: Chest x-ray on 03/23/2022 TECHNIQUE: Frontal view of the chest was obtained. FINDINGS: HEART & VASCULARITY: There are normal cardiac size and pulmonary vascularity. LUNGS: Lungs are clear. No pneumothorax is seen. BONES: Bony skeleton is intact. Lower cervical spine fixation with cortical screws and intervertebral bone cage is partially visualized. Surgical staple line is seen in medial left upper abdomen. XR/XR chest 1V IMPRESSION: 1. Unchanged, no radiographic signs of acute cardiopulmonary process. 2. Unchanged status post lower cervical spine ACDF. Unchanged medial left upper abdomen surgical staple line.. Electronically signed by: Debbie Krause MD 10/28/2023 03:40 PM EDT
--- NOTE | 2023-10-28 12:15 | ECG_ITS ---
Test Reason : CHEST PAIN Blood Pressure : / mmHG Vent. Rate : 071 BPM Atrial Rate : 071 BPM P-R Int : 152 ms QRS Dur : 080 ms QT Int : 382 ms P-R-T Axes : -16 -11 017 degrees QTc Int : 415 ms Normal sinus rhythm Normal ECG When compared with ECG of 13-MAY-2022 13:09, No significant change was found Referred By: Joyce Anand Electronically Signed By:ANGEL GARCIA
--- NOTE | 2023-10-28 12:37 | ED.GENADULT ---
HPI - General Adult General Chief complaint: Syncope Stated complaint: syncope since yesterday Time Seen by Provider: 10/28/23 12:21 Source: patient History of Present Illness ED Provider: Jd JIN narrative: 63-year-old female with past medical history of hyperlipidemia, seizures, multiple sclerosis, anxiety, depression, suicide ideation, spinal stenosis presenting for syncope. Patient states that she had 2 syncopal episodes yesterday with a prodrome of dizziness. She thinks that she lost consciousness during her 1st episode however she is not entirely sure. She does endorse head strike. Today patient was in waiting room and after her name was called she stood up and fell to the ground again striking head. Per nursing staff patient did not lose consciousness and was A&O x3 immediately upon evaluation. Patient is now complaining of pain to the back of her head. She denies chest pain, shortness of breath. Patient states that she is taking Depakote and is no longer taking Keppra at the instructions of 1 of her outside providers. Related Data Home Medications ?Medication ?Instructions ?Recorded ?Confirmed quetiapine 25 mg tablet 25 mg PO DAILY PRN Anxiety 01/16/21 06/03/23 brimonidine 0.2 % eye drops 1 drp ophthalmic (eye) BID 04/12/21 06/03/23 paroxetine HCl 40 mg tablet 40 mg PO BEDTIME 08/23/21 06/03/23 fluticasone furoate 200 1 inh inhalation DAILY 03/23/22 06/03/23 mcg-vilanterol 25 mcg/dose inhalation powder (Breo Ellipta) clonazepam 1 mg tablet 1 mg PO BID 04/29/22 06/03/23 paroxetine HCl 10 mg tablet 10 mg PO BEDTIME 06/18/22 06/03/23 gabapentin 600 mg tablet 600 mg PO Q6H 06/03/23 06/03/23 (Neurontin) quetiapine 100 mg tablet 100 mg PO BEDTIME 06/03/23 06/03/23 Previous Rx's ?Medication ?Instructions ?Recorded levetiracetam 500 mg tablet 500 mg PO Q12H #30 tabs 05/13/22 (Keppra) lidocaine 5 % topical patch 1 patch topical DAILY 30 days #30 10/14/22 ea rosuvastatin 10 mg tablet (Crestor) 10 mg PO DAILY #90 tabs 03/14/23 fluticasone propionate 50 1 spray intranasal DAILY #16 grams 07/10/23 mcg/actuation nasal spray,suspension chlorzoxazone 750 mg tablet 750 mg PO TID PRN Muscular 07/30/23 spasticity 30 days #90 tabs albuterol sulfate 90 mcg/actuation 2 puff inhalation Q4-6H PRN 08/26/23 aerosol inhaler shortness of breath or wheezing #8.5 grams pzvwewoxzr-bymxpvrgnsuzg-hwhzrafs 1 tab PO BID PRN pain #30 tabs 10/16/23 50 mg-325 mg-40 mg tablet Allergies Allergy/AdvReac Type Severity Reaction Status Date / Time Iodinated Contrast Media Allergy Intermediate HIVES Verified 10/28/23 12:29 [Iodinated Contrast Media - IV Dye] ketorolac [From Toradol] Allergy Intermediate localized Verified 10/28/23 12:29 redness/swelling Review of Systems Review of Systems: Patient endorses head pain, dizziness, weakness Patient denies new onset neck pain, chest pain, shortness of breath, abdominal pain, nausea, vomiting, urinary symptoms, visual disturbance Patient denies SI/HI Yes all other systems are reviewed and are negative [facility] Past Medical History Attestation statement: The following information was validated with the patient. [facility] Narrative: Seizures, hyperlipidemia, anxiety, depression Source: old records reviewed Medical History Seizure disorder Syncope Cervical spondylosis with radiculopathy Cervical radiculopathy Cervical strain Neck pain Seroma due to trauma Hematoma following procedure Calf pain Incisional pain Postoperative bleeding from incision Cellulitis Anemia Anxiety with depression Fatty liver Back pain Arthritis Abscess or cellulitis of knee Skin laxity Hyperlipidemia Neutropenia GERD (gastroesophageal reflux disease) COVID-19 vaccine administered Sacroiliitis Postlaminectomy syndrome Bunion of left foot Postconcussion syndrome Labral tear of right hip joint Spinal stenosis Colon polyps Allergic rhinitis Herpes Chronic sinusitis Depression Migraines Asthma Hypotension Malabsorption due to intolerance, not elsewhere classified Surgical History Hx of spinal fusion S/P plastic surgery S/P panniculectomy History of hip surgery History of endometrial ablation S/P tonsillectomy S/P bilateral foot surgery History of appendectomy H/O colonoscopy H/O endoscopy S/P laparoscopic sleeve gastrectomy H/O laminectomy Family History Family History Father No problems noted. Mother Cervical spine tumor Brother No problems noted. Brother No problems noted. Brother No problems noted. Brother No problems noted. Sister Mental health disorder Son No problems noted. Daughter No problems noted. Social History Social History Household Members: Spouse Housing: House Are you a primary patient care technician to a significant other at home: No Do you presently have visiting nurse or other home services: No Alcohol intake: former Comment: count correct Patient Tobacco Use Status: Never used Tobacco Smoked in Last 30 Days: No e-Cigarette/Vaping Use: Never Used Second Hand Smoke Exposure: No Use of substances other than those prescribed or required for medical reasons: No Substance Use Type: Marijuana Advance Directives: Yes Advance Directives on File: Yes Advance Directives Date on File: 08/28/21 Patient : No service: No Current occupational status: disabled Cognitive needs: No Hearing needs: No Vision needs: No Physical Exam ED Vital Signs: Vital Signs - 24 hr 10/28/23 12:25 10/28/23 14:28 10/28/23 14:54 Temperature 98.0 F Pulse Rate 79 71 Respiratory Rate 14 14 Blood Pressure 125/102 H 109/53 L Pulse Oximetry 100 99 98 Oxygen Delivery Method Room Air Room Air Room Air 10/28/23 14:56 10/28/23 14:57 Temperature Pulse Rate 64 71 Respiratory Rate Blood Pressure 137/48 L 101/60 Pulse Oximetry Oxygen Delivery Method BMI result Body Mass Index 22.2 Well-appearing female Tenderness occipital region however no contusion, hematoma or lacerations appreciated No midline C-spine tenderness No focal neurologic deficits appreciated Lungs clear to auscultation bilaterally Normal S1-S2 regular rate and rhythm Abdomen is soft nontender nondistended Medications Administered Discontinued Medications Generic Name Dose Route Start Last Admin Trade Name Freq PRN Reason Stop Dose Admin Acetaminophen 650 mg 10/28/23 15:38 10/28/23 16:10 Acetaminophen 325 Mg Tablet PO 10/28/23 15:39 650 mg ONCE ONE Administration Sodium Chloride 1,000 mls @ 999 mls/hr 10/28/23 15:45 10/28/23 17:21 Ns IV 10/28/23 16:45 Infused .Q1H1M HAY Infusion Medical Decision Making Medical Decision Making [facility] Narrative: This is a 63-year-old female presents for syncope. Patient's syncopal episode in the waiting room appeared to be volitional as she appeared to have thrown herself to the ground and did not lose consciousness however given patient's history of seizure and her age a syncopal workup will be pursued. I ordered CT head and neck to rule out acute traumatic injury. Labs, EKG, antiepileptic levels were ordered. At this time I have minimal concern for ACS, stroke given HPI and reassuring physical exam however I will revisit these diagnoses if necessary. I reviewed patient's lab work; H&H stable and CBC; mildly hyperkalemic; lactate 0.8, low valproic acid level No signs of ischemia on EKG or peaked t waves UA negative for UTI I reviewed patient's head and neck scan and did not appreciate any acute trauma Patient's chest x-ray was negative for large pneumo While patient was having her orthostatics taken she had another syncopal episode resulting in fall with head strike on cart in room. There was no LOC I ordered another CT head Patient admitted to medicine for further evaluation Differential Diagnosis Differential Diagnoses: The differential diagnosis associated with the presentation includes Seizure, syncope, dehydration, electrolyte/metabolic disturbance, Consult Healthcare Provider Management of the patient was discussed with: Hospitalist Patient admitted Lab Data [facility] Lab Attestation statement: I reviewed the patient's lab results. 10/28/23 12:53 10/28/23 12:53 Labs: Lab Results 10/28/23 10/28/23 10/28/23 Range/Units 12:53 13:22 14:32 WBC 4.8 (4.8-10.8) X10*3/uL RBC 3.88 L (4.20-5.50) X10*6/uL Hgb 12.7 (12.0-16.0) g/dl Hct 36.3 L (37.0-47.0) % MCV 93.6 (80.0-98.0) fL MCH 32.7 (27.0-33.0) pg MCHC 35.0 (31.0-35.0) g/dl RDW 12.6 (11.0-16.0) % Plt Count 205 (160-400) X10*3/uL MPV 9.8 (9.4-12.3) fL Immature Gran % (Auto) 0.0 (0.0-0.4) % Neut % (Auto) 48.2 (45-73) % Lymph % (Auto) 38.2 (20-40) % [place] % (Auto) 10.1 (2-11) % Eos % (Auto) 2.9 (0-4) % Baso % (Auto) 0.6 (0-2) % Lymph # (Auto) 1.8 (1.2-4.9) X10*3/uL [place] # (Auto) 0.5 (0.1-1.2) X10*3/uL Eos # (Auto) 0.1 (0.0-0.4) X10*3/uL Baso # (Auto) 0.0 (0.0-0.2) X10*3/uL Abs Immat Gran (auto) 0.00 (0.00-0.03) X10*3/uL Absolute Neuts (auto) 2.3 (2.0-8.3) x10*3/uL Absolute Nucleated RBC 0.000 (0.0-0.012) X10*3/uL Nucleated RBC % (auto) 0.0 (0.0-0.2) /100WBC Sodium 141 (135-145) mmol/L Potassium 5.1 (3.3-5.1) mmol/L Chloride 104 (96-108) mmol/L Carbon Dioxide 29 (22-29) mmol/L Anion Gap 13 (12-20) BUN 17 H (9-16) mg/dL Creatinine 0.76 (0.5-1.4) mg/dL Estim Creat Clear Calc 74.6 Estimated GFR > 60 Random Glucose 99 (60-115) mg/dL Lactic Acid 0.8 (0.5-2.0) mmol/L Calcium 10.1 (8.4-10.2) mg/dL Magnesium 2.4 (1.6-2.6) mg/dL Total Bilirubin 0.4 (0.0-1.0) mg/dL AST 17 (5-31) U/L ALT 10 (0-31) U/L Alkaline Phosphatase 79 (39-117) U/L Troponin I High Sens < 2.7 (<3.5-17.0) ng/L Total Protein 7.4 (6.5-8.0) g/dL Albumin 4.6 (3.5-5.0) g/dL Urine Color Yellow Urine Appearance Clear Urine pH 7.5 (5.0-9.0) Ur Specific [place] <= 1.005 (1.005-1.025) Urine Protein Negative (Neg-Trace) mg/dL Urine Glucose (UA) Negative (Negative) mg/dL Urine Ketones Negative (Negative) mg/dL Urine Blood Negative (Negative) Urine Nitrite Negative (Negative) Ur Leukocyte Esterase Negative (Negative) Urine Opiates Screen Not Detected (Not Detect) Ur Buprenorphine Scrn Not Detected (Not Detect) ng/mL Ur Oxycodone Screen Not Detected (Not Detect) ng/mL Urine Methadone Screen Not Detected (Not Detect) ng/mL Urine Fentanyl Screen Not Detected (Not Detect) Ur Barbiturates Screen POSITIVE H (Not Detect) Valproic Acid 27.6 L (50.0-100.0) mcg/mL Ur Phencyclidine Scrn Not Detected (Not Detect) Ur Amphetamines Screen Not Detected (Not Detect) U Benzodiazepines Scrn Not Detected (Not Detect) Urine Cocaine Screen Not Detected (Not Detect) U Marijuana (THC) Screen POSITIVE H (Not Detect) COVID-19 (PIETER) Negative (Negative) COVID-19 Clin Com See Note Radiology Impression Discussion of test interpretation with radiology: I have reviewed the radiologist's reading. Radiologist Impression: IMPRESSION: 1. No evidence of acute intracranial hemorrhage or edematous territorial infarction. 2. No evidence of acute fracture or traumatic subluxation of the cervical spine. 3. Moderate multilevel degenerative spondyloarthropathy of the cervical spine. IMPRESSION: 1. Unchanged, no radiographic signs of acute cardiopulmonary process. 2. Unchanged status post lower cervical spine ACDF. Unchanged medial left upper abdomen surgical staple line Discharge Plan Discharge Clinical Impression: Syncope Patient Disposition: Admitted As Inpatient Print Language: Tunisian
[2023-10-28 12:58] LABS: MANUAL DIFF FLAG NO
[2023-10-28 13:00] LABS: Basophils Percent Auto 0.6 % (0-2); Eosinophils Absolute Auto 0.1 X10*3/uL (0.0-0.4); Eosinophils Percent Auto 2.9 % (0-4); Hematocrit 36.3 % (37.0-47.0); Hemoglobin 12.7 g/dl (12.0-16.0); Lymphocytes Absolute Auto 1.8 X10*3/uL (1.2-4.9); Lymphocytes Percent Auto 38.2 % (20-40); Mean Corpuscular Hemoglobin 32.7 pg (27.0-33.0); Mean Corpuscular Volume 93.6 fL (80.0-98.0); Mean Platelet Volume 9.8 fL (9.4-12.3); Monocytes Absolute Auto 0.5 X10*3/uL (0.1-1.2); Monocytes Percent Auto 10.1 % (2-11); Neutrophils Absolute Auto 2.3 x10*3/uL (2.0-8.3); Neutrophils Percent Auto 48.2 % (45-73); Platelet Count 205 X10*3/uL (160-400); Red Blood Count 3.88 X10*6/uL (4.20-5.50); Red Cell Distribution Width 12.6 % (11.0-16.0); White Blood Count 4.8 X10*3/uL (4.8-10.8)
[2023-10-28 13:10] LABS: Lactic Acid 0.8 mmol/L (0.5-2.0)
[2023-10-28 13:14] LABS: Alanine Aminotransferase 10 U/L (0-31); Albumin Level 4.6 g/dL (3.5-5.0); Alkaline Phosphatase 79 U/L (39-117); Anion Gap 13 (12-20); Aspartate Amino Transferase 17 U/L (5-31); Bilirubin Total 0.4 mg/dL (0.0-1.0); Blood Urea Nitrogen 17 mg/dL (9-16); Calcium 10.1 mg/dL (8.4-10.2); Carbon Dioxide 29 mmol/L (22-29); Chloride 104 mmol/L (96-108); Creatinine Clr Calc Pharmacy 74.6; Estimated Glomerular Filt Rate > 60; Glucose Random 99 mg/dL (60-115); Magnesium 2.4 mg/dL (1.6-2.6); Potassium 5.1 mmol/L (3.3-5.1); Sodium 141 mmol/L (135-145); Total Protein 7.4 g/dL (6.5-8.0)
[2023-10-28 13:28] LABS: Troponin-I High Sensitivity < 2.7 ng/L (<3.5-17.0)
[2023-10-28 13:33] LABS: Appearance Urine Clear; Color Urine Yellow; Glucose Urine UA Negative (Negative); Leukocyte Esterase Urine Negative (Negative); Nitrite Urine Negative (Negative); PH 7.5 (5.0-9.0); Specific Gravity - Urine <= 1.005 (1.005-1.025); Urine Blood Negative (Negative); Urine Ketones Negative (Negative); Urine Protein Negative (Neg-Trace)
[2023-10-28 13:52] LABS: COVID-19 Test Negative (Negative); IDNOW Serial# 58CA691E
[2023-10-28 14:03] LABS: Amphetamine Screen Urine Not Detected (Not Detect); Barbiturates, Urine POSITIVE (Not Detect); Benzodiazepines Screen Urine Not Detected (Not Detect); Buprenorphine Scr Not Detected (Not Detect); Cannabinoid Screen Urine POSITIVE (Not Detect); Cocaine Screen Urine Not Detected (Not Detect); Fentanyl, urine Not Detected (Not Detect); Methadone Screen, Urine Not Detected (Not Detect); Opiate Screen Urine Not Detected (Not Detect); Oxycodone Screen Urine Not Detected (Not Detect); Phencyclidine Screen Urine Not Detected (Not Detect)
--- NOTE | 2023-10-28 14:30 | PC.NURSE ---
a&ox4. vss and up to date. pt presents to the ED d/t 2 witnessed syncopal episodes yesterday while at home. pt c/o prodromal sx consistent w/ dizziness/lightheadedness prior to fall. unknown headstrke. -thinners. pt has a hx of seizures. when coming into ED today, pt was called in by supervisor tile and mottle and had witnessed syncopal episode when standing up. pt reports same sx prior to falling. +headstrike. pt c/o 07/27 REYES/boothe/back pain s/p fall. no trauma noted. no loc noted by staff. pt now resting comfortably in no apparent distress. no sob/wob noted. respirations even/unlabored. plan of care ongoing. call lilly placed within reach.
--- NOTE | 2023-10-28 15:08 | PC.NURSE ---
Patient feinted and fell forward while sitting at the edge of the bed during orthostatic vital signs. Patient hit head on supply cart. No redness or swelling of the area seen. Provider aware.
--- NOTE | 2023-10-28 15:17 | PC.NURSE ---
tech bedside performing orthostatic vital signs. when transitioning from supine to sitting position, pt noted to have witnessed syncopal episode w/ +headstrike into cart. tech who was bedside immediately assessed pt. alert and oriented s/p witnessed fall. no trauma noted. vss and up to date aside from being slightly hypotensive. pt placed on nuclear monitoring technician - displaying nsr. 20gIV placed in the right AC - 1L NS ordered by this RN. provider notified/aware of incident.
[2023-10-28 15:21] LABS: Valproate 27.6 mcg/mL (50.0-100.0)
--- NOTE | 2023-10-28 15:30 | PC.NURSE ---
pt to CT at this time.
[2023-10-28] MEDS: Acetaminophen 325 MG TABLET 650 MG PO (16:10)
[2023-10-28] MEDS: 0.9 % Sodium Chloride 1,000 ML 999 ML IV (16:10)
--- NOTE | 2023-10-28 16:10 | PC.NURSE ---
pt medicated per provider order. effectiveness pending.
--- NOTE | 2023-10-28 16:49 | PM.IMHP ---
History of Present Illness Date of Service: 10/28/23 Attending physician on admission: Pr[facility] Chief Complaint: dizziness 61-year-old female with history of chronic normocytic anemia, anxiety and depression, moderate persistent asthma, cervical radiculopathy, oral herpes, hyperlipidemia, hypertension, migraines, lumbar stenosis, chronic pain syndrome, seizure disorder,, and multiple sclerosis presented to the ED via EMS for evaluation of lightheadedness and syncope. She reports onset of lightheadedness yesterday morning that persisted until yesterday evening. She had a witnessed syncopal event yesterday morning (witnessed by ) that lasted for several seconds. Has history of seizure disorder but denies any seizure activity and recalls events leading up to and following syncopal episode. Endorses lightheadedness leading up to event and reports migraine like headache ongoing since yesterday morning. Describes a unilateral throbbing sensation in R frontal aspect of head with no visual changes but associated nausea. Similar location to prior migraines but more intense. Reports lightheadedness recurred today and while in the ED waiting room, syncopized again for several seconds. She did hit her head. She still reports feeling dizziness and with same headache. No fevers, chills, recent illness, abd pain, vomiting, diarrhea, urinary symptoms, palpitations, sob, chest pain. In the ED, vitals stable thought orthostatic VS positive, no true hypotension however. Hematology studies unremarkable. Renal function and electrolyte levels normal. Urinalysis unremarkable. Urine tox screen positive for barbiturates and THC. Valproic acid level 27.6, Keppra level pending. Negative for COVID-19. Head CT negative for any acute intracranial abnormality. CT of the cervical spine negative for acute osseous abnormality but does show multilevel degenerative spondyloarthropathy of the cervical spine. Chest x-ray without acute cardiopulmonary abnormality. Review of Systems Review of Systems: Yes all other systems are reviewed and are negative [facility] Medical History Seizure disorder Syncope Cervical spondylosis with radiculopathy Cervical radiculopathy Cervical strain Neck pain Seroma due to trauma Hematoma following procedure Calf pain Incisional pain Postoperative bleeding from incision Cellulitis Anemia Anxiety with depression Fatty liver Back pain Arthritis Abscess or cellulitis of knee Skin laxity Hyperlipidemia Neutropenia GERD (gastroesophageal reflux disease) COVID-19 vaccine administered Sacroiliitis Postlaminectomy syndrome Bunion of left foot Postconcussion syndrome Labral tear of right hip joint Spinal stenosis Colon polyps Allergic rhinitis Herpes Chronic sinusitis Depression Migraines Asthma Hypotension Malabsorption due to intolerance, not elsewhere classified Family History Father No problems noted. Mother Cervical spine tumor Brother No problems noted. Brother No problems noted. Brother No problems noted. Brother No problems noted. Sister Mental health disorder Son No problems noted. Daughter No problems noted. Surgical History Hx of spinal fusion S/P plastic surgery S/P panniculectomy History of hip surgery History of endometrial ablation S/P tonsillectomy S/P bilateral foot surgery History of appendectomy H/O colonoscopy H/O endoscopy S/P laparoscopic sleeve gastrectomy H/O laminectomy Social History Household Members: Spouse Housing: House Are you a primary healthcare administration intern to a significant other at home: No Do you presently have visiting nurse or other home services: No Alcohol intake: former Comment: count correct Patient Tobacco Use Status: Never used Tobacco Smoked in Last 30 Days: No e-Cigarette/Vaping Use: Never Used Second Hand Smoke Exposure: No Use of substances other than those prescribed or required for medical reasons: No Substance Use Type: Marijuana Advance Directives: Yes Advance Directives on File: Yes Advance Directives Date on File: 08/28/21 Patient : No service: No Current occupational status: disabled Cognitive needs: No Hearing needs: No Vision needs: No Meds Allergies Allergy/AdvReac Type Severity Reaction Status Date / Time Iodinated Contrast Media Allergy Intermediate HIVES Verified 10/28/23 12:29 [Iodinated Contrast Media - IV Dye] ketorolac [From Toradol] Allergy Intermediate localized Verified 10/28/23 12:29 redness/swelling Home Medications ?Medication ?Instructions ?Recorded ?Confirmed ?Last Taken ?Type quetiapine 25 mg tablet 25 mg PO DAILY PRN Anxiety 01/16/21 06/03/23 03/23/22 History brimonidine 0.2 % eye drops 1 drp ophthalmic (eye) BID 04/12/21 06/03/23 03/23/22 History paroxetine HCl 40 mg tablet 40 mg PO BEDTIME 08/23/21 06/03/23 03/22/22 History fluticasone furoate 200 1 inh inhalation DAILY 03/23/22 06/03/23 03/23/22 History mcg-vilanterol 25 mcg/dose inhalation powder (Breo Ellipta) clonazepam 1 mg tablet 1 mg PO BID 04/29/22 06/03/23 05/22/22 History paroxetine HCl 10 mg tablet 10 mg PO BEDTIME 06/18/22 06/03/23 Unknown History gabapentin 600 mg tablet 600 mg PO Q6H 06/03/23 06/03/23 Unknown History (Neurontin) quetiapine 100 mg tablet 100 mg PO BEDTIME 06/03/23 06/03/23 Unknown History Physical Exam Vital Signs and Narrative: Vital Signs: Last Vital Signs Temp 98.0 F 10/28/23 12:25 Pulse 71 10/28/23 14:57 Resp 14 10/28/23 14:28 BP 101/60 10/28/23 14:57 Pulse Ox 98 10/28/23 14:54 O2 Del Method Room Air 10/28/23 14:54 BMI result Body Mass Index 22.2 Constitutional - Awake and Alert, No apparent distress Eyes - PERRLA, EOMI Cardiovascular - S1S2, RRR, No edema Respiratory - Normal lung expansion, Normal respiratory effort, No respiratory distress, CTA bilaterally Gastrointestinal - NT / ND; +BS; No rebound or guarding Extremities - no calf tenderness bilaterally, no swelling Skin - Warm/Dry Neurological - Alert & oriented x3, CN II-XII in tact, 5/5 strength BUE and RLE, 4/5 strength LLE (reports chronic r/t MS) Psychological - Appropriate affect Results Labs 10/28/23 12:53 10/28/23 12:53 Labs: Laboratory Results - last 24 hr 10/28/23 10/28/23 10/28/23 12:53 13:22 14:32 MCV 93.6 MCH 32.7 MCHC 35.0 RDW 12.6 Plt Count 205 MPV 9.8 Immature Gran % (Auto) 0.0 Neut % (Auto) 48.2 Lymph % (Auto) 38.2 [place] % (Auto) 10.1 Eos % (Auto) 2.9 Baso % (Auto) 0.6 Lymph # (Auto) 1.8 [place] # (Auto) 0.5 Eos # (Auto) 0.1 Baso # (Auto) 0.0 Abs Immat Gran (auto) 0.00 Absolute Neuts (auto) 2.3 Absolute Nucleated RBC 0.000 Nucleated RBC % (auto) 0.0 Anion Gap 13 Estim Creat Clear Calc 74.6 Estimated GFR > 60 Random Glucose 99 Lactic Acid 0.8 Calcium 10.1 Magnesium 2.4 Total Bilirubin 0.4 AST 17 ALT 10 Alkaline Phosphatase 79 Troponin I High Sens < 2.7 Total Protein 7.4 Albumin 4.6 Urine Color Yellow Urine Appearance Clear Urine pH 7.5 Ur Specific [place] <= 1.005 Urine Protein Negative Urine Glucose (UA) Negative Urine Ketones Negative Urine Blood Negative Urine Nitrite Negative Ur Leukocyte Esterase Negative Urine Opiates Screen Not Detected Ur Buprenorphine Scrn Not Detected Ur Oxycodone Screen Not Detected Urine Methadone Screen Not Detected Urine Fentanyl Screen Not Detected Ur Barbiturates Screen POSITIVE H Valproic Acid 27.6 L Ur Phencyclidine Scrn Not Detected Ur Amphetamines Screen Not Detected U Benzodiazepines Scrn Not Detected Urine Cocaine Screen Not Detected U Marijuana (THC) Screen POSITIVE H COVID-19 (PIETER) Negative COVID-19 Clin Com See Note Imaging Radiologist's Impressions: Impressions Chest X-Ray 10/28/23 12:32 IMPRESSION: 1. Unchanged, no radiographic signs of acute cardiopulmonary process. 2. Unchanged status post lower cervical spine ACDF. Unchanged medial left upper abdomen surgical staple line.. Electronically signed by: Debbie Krause MD 10/28/2023 03:40 PM EDT RP Head CT 10/28/23 12:32 IMPRESSION: 1. No evidence of acute intracranial hemorrhage or edematous territorial infarction. 2. No evidence of acute fracture or traumatic subluxation of the cervical spine. 3. Moderate multilevel degenerative spondyloarthropathy of the cervical spine. Electronically signed by: Dany Velázquez DO 10/28/2023 03:44 PM EDT RP Cervical Spine CT 10/28/23 12:52 IMPRESSION: 1. No evidence of acute intracranial hemorrhage or edematous territorial infarction. 2. No evidence of acute fracture or traumatic subluxation of the cervical spine. 3. Moderate multilevel degenerative spondyloarthropathy of the cervical spine. Electronically signed by: Dany Velázquez DO 10/28/2023 03:44 PM EDT RP Assessment and Plan (1) Syncope: Status: Acute Plan 61-year-old female with history of chronic normocytic anemia, anxiety and depression, moderate persistent asthma, cervical radiculopathy, oral herpes, hyperlipidemia, hypertension, migraines, lumbar stenosis, chronic pain syndrome, seizure disorder,, and multiple sclerosis to be observed for syncope. #Syncope- likely neurogenic in nature vs orthostatic -?r/t complex migraine -head ct negative for acute intracranial abnormality -Orthos+. Give IVF x1L -Fioricet and zofran prn -eeg -neuro consult -will continue tele monitoring # multiple sclerosis -No acute flare -Pt has chronic unilateral left sided weakness -Appreciate neurology input #Chronic pain syndrome related to cervical radiculopathy, lumbar stenosis, failed back syndrome -continue gabapentin, lidocaine patches, muscle relaxers, prn # moderate persistent asthma-without acute exacerbation -continue home inhalers # mood disorder/anxiety -continue home meds # glaucoma -continue eyedrops DVT prophylaxis-Lovenox Full code Quality Stroke Does the patient have a stroke diagnosis?: No VTE Prior VTE?: No VTE Risk Level:: Medical - moderate - high VTE Device Contraindication: Treatment Not Indicated VTE Drug Contraindication: N/A - Med Ordered
--- NOTE | 2023-10-28 19:00 | PC.NURSE ---
report received from Suzette SOLER, assume care of pt at this time
[2023-10-28] MEDS: 0.9 % Sodium Chloride 1,000 ML 100 ML IVCONT (19:16)
[2023-10-28] MEDS: Butalb/Acetamin/Caff 50/325/40 TABLET 1 TAB PO (19:16)
[2023-10-28] MEDS: Enoxaparin Sodium 40 MG/0.4 ML SYRINGE SUBCUT (19:16)
--- NOTE | 2023-10-28 19:22 | PHA.MEDREC ---
Addendum entered by Landen King [facility] 10/28/23 19:30: Med rec reviewed Original Note: Pharmacy Consult ? Medication Reconciliation Pharmacy has completed the medication reconciliation. Spoke to patient to confirm med list. Patient states she is no longer on Lorzone 750 mg, Breo Ellipta, Keppra 500 mg, Lidocaine patch, Rosuvastatin 10 mg. Patient states she is now on Depakote Er 500 mg daily, call [facility] to confirm last fill date 09/30/23 for 30 days.
[2023-10-28] MEDS: Brimonidine Tartrate 0.2% Oph 5 ML BOTTLE 1 DROP EYE-BOTH (19:26)
[2023-10-29] VITALS (7 sets, daily range): BP systolic 94–113; BP diastolic 38–50; PULSE 55–78; RESP 14–17; TEMP 36.4–36.8; O2SAT 96–99
--- NOTE | 2023-10-29 | EEG_ITS ---
FINDINGS: Waking background activity consists of a moderate voltage, diffuse, 6 to 7 hertz theta, occasionally getting up to 8 hertz posteriorly. Some sharp configuration waveforms were seen occasionally from the left temporal region. Photic stimulation is without activation. Hyperventilation was omitted. IMPRESSION: This is an abnormal EEG due to diffuse background slowing consistent with a diffuse encephalopathic process with some elements of cerebral irritability in the left temporal region. MD MITCH Roberson/JENN / [id number]
[2023-10-29] MEDS: Butalb/Acetamin/Caff 50/325/40 TABLET 1 TAB PO ×3 (00:58→14:28)
--- NOTE | 2023-10-29 00:58 | PC.NURSE ---
pt lights are off, door closed, noise and lights at minimal, headache 7/10 pt alert and oriented x4. skin pink warm and dry, no s/s of distress, pt medicated with prn fioricet po
--- NOTE | 2023-10-29 03:56 | PC.NURSE ---
resting quietly on stretcher, eyes closed, resp with ease, no s/s of acute distress, awaiting admit bed
[2023-10-29 05:14] LABS: Basophils Percent Auto 0.6 % (0-2); Eosinophils Absolute Auto 0.2 X10*3/uL (0.0-0.4); Eosinophils Percent Auto 5.2 % (0-4); Hematocrit 34.2 % (37.0-47.0); Hemoglobin 11.3 g/dl (12.0-16.0); Lymphocytes Absolute Auto 2.2 X10*3/uL (1.2-4.9); Lymphocytes Percent Auto 63.6 % (20-40); MANUAL DIFF FLAG SCAN; Mean Platelet Volume 9.8 fL (9.4-12.3); Monocytes Absolute Auto 0.4 X10*3/uL (0.1-1.2); Monocytes Percent Auto 10.6 % (2-11); Neutrophils Absolute Auto 0.7 x10*3/uL (2.0-8.3); Platelet Count 181 X10*3/uL (160-400); Red Blood Count 3.64 X10*6/uL (4.20-5.50); Red Cell Distribution Width 12.2 % (11.0-16.0); SCAN SMEAR FLAG 1; White Blood Count 3.5 X10*3/uL (4.8-10.8)
[2023-10-29 05:30] LABS: Anion Gap 11 (12-20); Blood Urea Nitrogen 14 mg/dL (9-16); Calcium 8.8 mg/dL (8.4-10.2); Carbon Dioxide 26 mmol/L (22-29); Chloride 110 mmol/L (96-108); Creatinine Clr Calc Pharmacy 78.7; Estimated Glomerular Filt Rate > 60; Glucose Random 87 mg/dL (60-115); Potassium 4.1 mmol/L (3.3-5.1); Sodium 143 mmol/L (135-145)
[2023-10-29 05:38] LABS: SLIDE REVIEW VERIFIED
--- NOTE | 2023-10-29 06:58 | PC.NURSE ---
report given to Elizabeth SOLER
[2023-10-29] MEDS: 0.9 % Sodium Chloride Flush 3 ML SYRINGE IVFLUSH (07:25)
--- NOTE | 2023-10-29 08:20 | HO.PM.IMPN ---
Subjective Subjective Date of Service: 10/29/23 Physical Exam Vital Signs: Vital Signs: Last Vital Signs Temp 97.6 F 10/29/23 05:01 Pulse 74 10/29/23 05:01 Resp 16 10/29/23 05:01 BP 108/43 L 10/29/23 05:01 Pulse Ox 99 10/29/23 05:01 O2 Del Method Room Air 10/29/23 05:01 BMI result Body Mass Index 22.2 Objective Data Active Medications Acetaminophen/Butalbital/Caffeine (Butalb/Acetamin/Caff 50/325/40 Tablet) 1 tab PO Q4H PRN PRN Reason: Migraine Headache Last Admin: 10/29/23 07:25 Dose: 1 tab Documented By: BELEN Calcium Carbonate (Calcium Carbonate 750 Mg Tab.Chew) 750 mg PO Q4H PRN PRN Reason: Heartburn Enoxaparin Sodium (Enoxaparin Sodium 40 Mg/0.4 Ml Syringe) 40 mg SUBCUT Q24H [facility] Last Admin: 10/28/23 19:16 Dose: 40 mg Documented By: EMY Magnesium Hydroxide (Milk Of Magnesia 30 Ml Oral.Susp) 30 ml PO DAILY PRN PRN Reason: Constipation Melatonin (Melatonin 3 Mg Tablet) 6 mg PO BEDTIME PRN PRN Reason: Insomnia Ondansetron HCl (Ondansetron Hcl 4 Mg/2 Ml Vial) 4 mg IVPUSH Q8H PRN PRN Reason: Nausea and Vomiting Sodium Chloride (0.9 % Sodium Chloride Flush 3 Ml Syringe) 3 ml IVFLUSH [facility] Last Admin: 10/29/23 07:25 Dose: 3 ml Documented By: BELEN Labs 10/29/23 04:57 10/29/23 04:57 Labs: Laboratory Results - last 24 hr 10/28/23 10/28/23 10/28/23 12:53 13:22 14:32 MCV 93.6 MCH 32.7 MCHC 35.0 RDW 12.6 Plt Count 205 MPV 9.8 Immature Gran % (Auto) 0.0 Neut % (Auto) 48.2 Lymph % (Auto) 38.2 Carver % (Auto) 10.1 Eos % (Auto) 2.9 Baso % (Auto) 0.6 Lymph # (Auto) 1.8 Carver # (Auto) 0.5 Eos # (Auto) 0.1 Baso # (Auto) 0.0 Abs Immat Gran (auto) 0.00 Absolute Neuts (auto) 2.3 Absolute Nucleated RBC 0.000 Nucleated RBC % (auto) 0.0 Smear Tech's Comments Anion Gap 13 Estim Creat Clear Calc 74.6 Estimated GFR > 60 Random Glucose 99 Lactic Acid 0.8 Calcium 10.1 Magnesium 2.4 Total Bilirubin 0.4 AST 17 ALT 10 Alkaline Phosphatase 79 Troponin I High Sens < 2.7 Total Protein 7.4 Albumin 4.6 Hold Yellow Top See Note Urine Color Yellow Urine Appearance Clear Urine pH 7.5 Ur Specific [place] <= 1.005 Urine Protein Negative Urine Glucose (UA) Negative Urine Ketones Negative Urine Blood Negative Urine Nitrite Negative Ur Leukocyte Esterase Negative Urine Opiates Screen Not Detected Ur Buprenorphine Scrn Not Detected Ur Oxycodone Screen Not Detected Urine Methadone Screen Not Detected Urine Fentanyl Screen Not Detected Ur Barbiturates Screen POSITIVE H Valproic Acid 27.6 L Ur Phencyclidine Scrn Not Detected Ur Amphetamines Screen Not Detected U Benzodiazepines Scrn Not Detected Urine Cocaine Screen Not Detected U Marijuana (THC) Screen POSITIVE H COVID-19 (PIETER) Negative COVID-19 Clin Com See Note 10/29/23 04:57 MCV 94.0 MCH 31.0 MCHC 33.0 RDW 12.2 Plt Count 181 MPV 9.8 Immature Gran % (Auto) 0.0 Neut % (Auto) 20.0 L Lymph % (Auto) 63.6 H Car[place] % (Auto) 10.6 Eos % (Auto) 5.2 H Baso % (Auto) 0.6 Lymph # (Auto) 2.2 Carver # (Auto) 0.4 Eos # (Auto) 0.2 Baso # (Auto) 0.0 Abs Immat Gran (auto) 0.00 Absolute Neuts (auto) 0.7 L Absolute Nucleated RBC 0.000 Nucleated RBC % (auto) 0.0 Smear Tech's Comments VERIFIED Anion Gap 11 L Estim Creat Clear Calc 78.7 Estimated GFR > 60 Random Glucose 87 Lactic Acid Calcium 8.8 D Magnesium Total Bilirubin AST ALT Alkaline Phosphatase Troponin I High Sens Total Protein Albumin Hold Yellow Top Urine Color Urine Appearance Urine pH Ur Specific [place] Urine Protein Urine Glucose (UA) Urine Ketones Urine Blood Urine Nitrite Ur Leukocyte Esterase Urine Opiates Screen Ur Buprenorphine Scrn Ur Oxycodone Screen Urine Methadone Screen Urine Fentanyl Screen Ur Barbiturates Screen Valproic Acid Ur Phencyclidine Scrn Ur Amphetamines Screen U Benzodiazepines Scrn Urine Cocaine Screen U Marijuana (THC) Screen COVID-19 (PIETER) COVID-19 Clin Com Quality Stroke Does the patient have a stroke diagnosis?: No VTE Prior VTE?: No VTE Risk Level:: Medical - moderate - high VTE Device Contraindication: Treatment Not Indicated VTE Drug Contraindication: N/A - Med Ordered
--- NOTE | 2023-10-29 09:31 | PC.NURSE ---
Pt taken to EEG
--- NOTE | 2023-10-29 10:13 | PC.NURSE ---
Meds late due to pt being off the unit at EEG
[2023-10-29] MEDS: Divalproex Sodium ER 500 MG TAB.ER.24H PO (10:45)
[2023-10-29] MEDS: clonazePAM 1 MG TABLET PO (10:46)
[2023-10-29] MEDS: Gabapentin 600 MG TABLET PO ×2 (10:46→13:15)
[2023-10-29] MEDS: Brimonidine Tartrate 0.2% Oph 5 ML BOTTLE 1 DROP EYE-BOTH (10:48)
--- NOTE | 2023-10-29 11:16 | MHC.CM.PN ---
IMM 10/29/23, Pt lives with spouse, she does not have home health services or DME. HCP on file and confirmed, names [facility]. PCP confirmed: Corinne Figueroa. Pt is able to arrange transport home at [place], DCP: home, self care. CM to follow for DC needs.
--- NOTE | 2023-10-29 11:24 | P.DS_ITS ---
DS: Providers Provider Date of Service: 10/29/23 Date of admission: 10/28/23 17:28 Date of discharge: 10/29/23 Primary care physician: Corinne Figueroa MD Admitting clinician: Erika Brunson Attending physician on admission: Pradeep Hennessy Consults: 10/28/23 17:28 Consult to Neurology Routine Consulting Provider: [facility] Reason for consultation: syncope, ?complex migraine Attending physician on discharge: Erika Brunson Discharging clinician: Timo Bernard DS: Diagnosis Discharge Diagnosis (1) Syncope: Status: Acute DS: Summary Hospital Course Hospital Course: HPI on admission by this provider 10/28: 61-year-old female with history of chronic normocytic anemia, anxiety and depression, moderate persistent asthma, cervical radiculopathy, oral herpes, hyperlipidemia, hypertension, migraines, lumbar stenosis, chronic pain syndrome, seizure disorder,, and multiple sclerosis presented to the ED via EMS for evaluation of lightheadedness and syncope. She reports onset of lightheadedness yesterday morning that persisted until yesterday evening. She had a witnessed syncopal event yesterday morning (witnessed by ) that lasted for several seconds. Has history of seizure disorder but denies any seizure activity and recalls events leading up to and following syncopal episode. Endorses lightheadedness leading up to event and reports migraine like headache ongoing since yesterday morning. Describes a unilateral throbbing sensation in R frontal aspect of head with no visual changes but associated nausea. Similar location to prior migraines but more intense. Reports lightheadedness recurred today and while in the ED waiting room, syncopized again for several seconds. She did hit her head. She still reports feeling dizziness and with same headache. No fevers, chills, recent illness, abd pain, vomiting, diarrhea, urinary symptoms, palpita tions, sob, chest pain. In the ED, vitals stable thought orthostatic VS positive, no true hypotension however. Hematology studies unremarkable. Renal function and electrolyte levels normal. Urinalysis unremarkable. Urine tox screen positive for barbiturates and THC. Valproic acid level 27.6, Keppra level pending. Negative for COVID-19. Head CT negative for any acute intracranial abnormality. CT of the cervical spine negative for acute osseous abnormality but does show multilevel degenerative spondyloarthropathy of the cervical spine. Chest x-ray without acute cardiopulmonary abnormality. Hospital course: Pt observed overnight following multiple syncopal episodes. Orthostasis treated with 1 L IVF though mild lightheadedness persisted with associated migraine like headache. Improved with fioricet. Seen by neurology with etiology of syncopal episodes remaining unclear. Cannot rule out partial seizures. EEG pending. Depakote level subtheraeutic at 27.6. Depakote increased to 500mg ER BID. It is also possible this was related to complex migraine as does have history of similar. No events noted on athletic monitor though neurology does recommend 30 day event monitor. Discussed with visual education director cardiology and office will arrange this and reach out to patient. Recommend outpt follow up with Dr. evans in neurology. Given uncertainty of nature of syncope and uncertainty if seizure activity involved, recommend no driving x 6 months and discuss further with Dr. Evans. #Syncope -?r/t complex migraine vs partial seizures vs cardiogenic. -head ct negative for acute intracranial abnormality -Orthos+. Give IVF x1L -Fioricet and zofran prn -eeg results pending. Outpt follow up with neuro -no events on athletic monitor noted. Neuro recommended 30 day event monitor. Discussed with cardiology who will arrange # multiple sclerosis -No acute flare -Pt has chronic unilateral left sided weakness #Chronic pain syndrome related to cervical radiculopathy, lumbar stenosis, failed back syndrome -continue gabapentin, lidocaine patches, muscle relaxers, prn # moderate persistent asthma-without acute exacerbation -continue home inhalers # mood disorder/anxiety -continue home meds # glaucoma -continue eyedrops Status at Discharge Functional status at discharge: independent ambulation Overall status at discharge: patient is progressing back to baseline Time Attestation Discharge Coordination Time (in mins): 35 Quality: Safe Use of Opioids Does Pt have an Active Cancer Diagnosis on the Problem List?: No Quality: Stroke Does the patient have a stroke diagnosis?: No Physical Exam Vital Signs: Vital Signs: Last Vital Signs Temp 97.6 F 10/29/23 05:01 Pulse 78 10/29/23 08:29 Resp 16 10/29/23 08:29 BP 102/38 L 10/29/23 08:29 Pulse Ox 98 10/29/23 08:29 O2 Del Method Room Air 10/29/23 08:29 BMI result Body Mass Index 22.2 DS: Data Data Completed and Pending Completed studies during hospitalization [Text1]: Procedures Alteration of Left Upper Arm, Open Approach (08/22/20) Alteration of Left Upper Leg, Open Approach (08/22/20) Alteration of Right Upper Arm, Open Approach (08/22/20) Alteration of Right Upper Leg, Open Approach (08/22/20) Excision of Abdomen Subcutaneous Tissue and Fascia, Open Approach (06/08/20) Transfer Abdomen Subcutaneous Tissue and Fascia with Skin and Subcutaneous Tissue, Open Approach (06/08/20) Labs on day of discharge: Laboratory Results - last 24 hr 10/28/23 10/28/23 10/28/23 12:53 13:22 14:32 WBC 4.8 RBC 3.88 L Hgb 12.7 Hct 36.3 L MCV 93.6 MCH 32.7 MCHC 35.0 RDW 12.6 Plt Count 205 MPV 9.8 Immature Gran % (Auto) 0.0 Neut % (Auto) 48.2 Lymph % (Auto) 38.2 [place]aines % (Auto) 10.1 Eos % (Auto) 2.9 Baso % (Auto) 0.6 Lymph # (Auto) 1.8 [place]aines # (Auto) 0.5 Eos # (Auto) 0.1 Baso # (Auto) 0.0 Abs Immat Gran (auto) 0.00 Absolute Neuts (auto) 2.3 Absolute Nucleated RBC 0.000 Nucleated RBC % (auto) 0.0 Smear Tech's Comments Sodium 141 Potassium 5.1 Chloride 104 Carbon Dioxide 29 Anion Gap 13 BUN 17 H Creatinine 0.76 Estim Creat Clear Calc 74.6 Estimated GFR > 60 Random Glucose 99 Lactic Acid 0.8 Calcium 10.1 Magnesium 2.4 Total Bilirubin 0.4 AST 17 ALT 10 Alkaline Phosphatase 79 Troponin I High Sens < 2.7 Total Protein 7.4 Albumin 4.6 Hold Yellow Top See Note Urine Color Yellow Urine Appearance Clear Urine pH 7.5 Ur Specific [place] <= 1.005 Urine Protein Negative Urine Glucose (UA) Negative Urine Ketones Negative Urine Blood Negative Urine Nitrite Negative Ur Leukocyte Esterase Negative Urine Opiates Screen Not Detected Ur Buprenorphine Scrn Not Detected Ur Oxycodone Screen Not Detected Urine Methadone Screen Not Detected Urine Fentanyl Screen Not Detected Ur Barbiturates Screen POSITIVE H Valproic Acid 27.6 L Ur Phencyclidine Scrn Not Detected Ur Amphetamines Screen Not Detected U Benzodiazepines Scrn Not Detected Urine Cocaine Screen Not Detected U Marijuana (THC) Screen POSITIVE H COVID-19 (PIETER) Negative COVID-19 Clin Com See Note 10/29/23 04:57 WBC 3.5 L RBC 3.64 L Hgb 11.3 L Hct 34.2 L MCV 94.0 MCH 31.0 MCHC 33.0 RDW 12.2 Plt Count 181 MPV 9.8 Immature Gran % (Auto) 0.0 Neut % (Auto) 20.0 L Lymph % (Auto) 63.6 H [place] % (Auto) 10.6 Eos % (Auto) 5.2 H Baso % (Auto) 0.6 Lymph # (Auto) 2.2 [place] # (Auto) 0.4 Eos # (Auto) 0.2 Baso # (Auto) 0.0 Abs Immat Gran (auto) 0.00 Absolute Neuts (auto) 0.7 L Absolute Nucleated RBC 0.000 Nucleated RBC % (auto) 0.0 Smear Tech's Comments VERIFIED Sodium 143 Potassium 4.1 Chloride 110 H Carbon Dioxide 26 Anion Gap 11 L BUN 14 Creatinine 0.72 Estim Creat Clear Calc 78.7 Estimated GFR > 60 Random Glucose 87 Lactic Acid Calcium 8.8 D Magnesium Total Bilirubin AST ALT Alkaline Phosphatase Troponin I High Sens Total Protein Albumin Hold Yellow Top Urine Color Urine Appearance Urine pH Ur Specific [place] Urine Protein Urine Glucose (UA) Urine Ketones Urine Blood Urine Nitrite Ur Leukocyte Esterase Urine Opiates Screen Ur Buprenorphine Scrn Ur Oxycodone Screen Urine Methadone Screen Urine Fentanyl Screen Ur Barbiturates Screen Valproic Acid Ur Phencyclidine Scrn Ur Amphetamines Screen U Benzodiazepines Scrn Urine Cocaine Screen U Marijuana (THC) Screen COVID-19 (PIETER) COVID-19 Clin Com Discharge Plan Discharge Anticipated Discharge Date/Time: 10/29/23 16:25 Patient Disposition: Home, Self-Care Discharge Diagnosis: Syncope Referrals: Corinne Figueroa MD [Primary Care Provider] - 1 Week Sweta Evans MD [Physician] - 1 Week Discharge Medications: Continued albuterol sulfate 90 mcg/actuation HFA aerosol inhaler 2 puff inhalation Q4-6H PRN (Reason: shortness of breath or wheezing) Qty: 8.5 6RF [id number] 50-325-40 mg tablet 1 tab PO BID PRN (Reason: pain) Qty: 30 0RF gabapentin [Neurontin] 600 mg tablet 600 mg PO QID quetiapine 100 mg tablet 100 mg PO BEDTIME fluticasone propionate 50 mcg/actuation spray,suspension 1 spray intranasal DAILY PRN (Reason: Allergy Symptoms) Rx Instructions: administer into each nostril clonazepam 1 mg tablet 1 mg PO BID quetiapine 25 mg tablet 25 mg PO BID PRN (Reason: Anxiety) brimonidine 0.2 % drops 1 drp ophthalmic (eye) BID Rx Instructions: Both eyes paroxetine HCl 40 mg tablet 40 mg PO BEDTIME paroxetine HCl 10 mg tablet 10 mg PO BEDTIME Changed divalproex [Depakote ER] 500 mg Tablet Extended Release 24 Hr 500 mg PO BID Qty: 180 0RF Discharge Orders: Discharge Order (Routine); Ordered 10/29/23 Ordered By: Erika Brunson Diet: Advance to usual diet Activity on Discharge: As tolerated Stand Alone Forms: Patient Portal Discharge page Print Language: Togolese Care Plan Goals: Prevent syncope Health Concerns: Syncope Migraine headaches Seizure disorder Plan of Treatment: Cause of syncopal episodes remains unclear. per neurology this may be related to partial seizure activity. Your EEG remains pending. It is also possibly this may be related to a complex migraine given your history. Your depakote level is subtehrapeutic so neurology is recommending that you increase the depakote to 500mg twice daily (next dose due tonight). I have sent refills to your pharmacy. You should follow up with Dr. Evans on discharge. Would not recommend driving until evaluated by Dr. Evans or definitely seizure free for 6 months neurology is also recommending a 30 day holter (cardiac) monitor. I have reached out to cardiology and their office will call you to arrange this. Assessment: See discharge summary. See above. Discharge Date/Time: 10/29/23 16:54
--- NOTE | 2023-10-29 14:40 | P.CNNE_ITS ---
History of Present Illness Data of Consult Service Date: 10/29/23 Primary Care Provider: Corinne Figueroa MD [facility] Reason for consult: syncope This is a 61-year-old female with history of chronic normocytic anemia, anxiety and depression, moderate persistent asthma, cervical radiculopathy, oral herpes, hyperlipidemia, hypertension, migraines, lumbar stenosis, chronic pain syndrome, seizure disorder, previous admissions for syncope in 2021 and 2022, and non specific white matter changes on MRI presented to the ED via EMS for evaluation of lightheadedness and syncope. She reports onset of lightheadedness yesterday morning that persisted until yesterday evening. She had a witnessed syncopal event yesterday morning (witnessed by ) that lasted for several seconds. Has history of seizure disorder but denies any seizure activity and recalls events leading up to and following syncopal episode. She says she has passed out 4 times in last 2 days, but does not think these are seizures. Endorses lightheadedness leading up to event and reports migraine like headache ongoing since yesterday morning. Describes a unilateral throbbing sensation in R frontal aspect of head with no visual changes but associated nausea. Similar location to prior migraines but more intense. Reports lightheadedness recurred today and while in the ED waiting room, syncopized again for several seconds. She did hit her head. She still reports feeling dizziness and with same headache. No fevers, chills, recent illness, abd pain, vomiting, diarrhea, urinary symptoms, palpitations, sob, chest pain. In the ED, vitals stable thought orthostatic VS positive, no true hypotension however. Hematology studies unremarkable. Renal function and electrolyte levels normal. Urinalysis unremarkable. Urine tox screen positive for barbiturates and THC. Valproic acid level 27.6 ( taking 500mg qd) Negative for COVID-19. Head CT negative for any acute intracranial abnormality. CT of the cervical spine negative for acute osseous abnormality but does show multilevel degenerative spondyloarthropathy of the cervical spine. [facility]LY [facility] Past Medical History Medical History Seizure disorder Syncope Cervical spondylosis with radiculopathy Cervical radiculopathy Cervical strain Neck pain Seroma due to trauma Hematoma following procedure Calf pain Incisional pain Postoperative bleeding from incision Cellulitis Anemia Anxiety with depression Fatty liver Back pain Arthritis Abscess or cellulitis of knee Skin laxity Hyperlipidemia Neutropenia GERD (gastroesophageal reflux disease) COVID-19 vaccine administered Sacroiliitis Postlaminectomy syndrome Bunion of left foot Postconcussion syndrome Labral tear of right hip joint Spinal stenosis Colon polyps Allergic rhinitis Herpes Chronic sinusitis Depression Migraines Asthma Hypotension Malabsorption due to intolerance, not elsewhere classified Family History Family History Father No problems noted. Mother Cervical spine tumor Brother No problems noted. Brother No problems noted. Brother No problems noted. Brother No problems noted. Sister Mental health disorder Son No problems noted. Daughter No problems noted. Surgical History Surgical History Hx of spinal fusion S/P plastic surgery S/P panniculectomy History of hip surgery History of endometrial ablation S/P tonsillectomy S/P bilateral foot surgery History of appendectomy H/O colonoscopy H/O endoscopy S/P laparoscopic sleeve gastrectomy H/O laminectomy Social History Social History Household Members: Spouse Housing: House Are you a primary senior resident care director to a significant other at home: No Do you presently have visiting nurse or other home services: No Alcohol intake: former Comment: count correct Patient Tobacco Use Status: Never used Tobacco Smoked in Last 30 Days: No e-Cigarette/Vaping Use: Never Used Second Hand Smoke Exposure: No Use of substances other than those prescribed or required for medical reasons: No Substance Use Type: Marijuana Advance Directives: Yes Advance Directives on File: Yes Advance Directives Date on File: 08/28/21 Patient : No service: No Current occupational status: disabled Cognitive needs: No Hearing needs: No Vision needs: No Meds Allergies Allergy/AdvReac Type Severity Reaction Status Date / Time Iodinated Contrast Media Allergy Intermediate HIVES Verified 10/28/23 12:29 [Iodinated Contrast Media - IV Dye] ketorolac [From Toradol] Allergy Intermediate localized Verified 10/28/23 12:29 redness/swelling Active Medications: Current Medications Acetaminophen/Butalbital/Caffeine (Butalb/Acetamin/Caff 50/325/40 Tablet) 1 tab PO Q4H PRN PRN Reason: Migraine Headache Last Admin: 10/29/23 14:28 Dose: 1 tab Albuterol Sulfate (Albuterol Sulfate 90 Mcg 8 Gm Inhaler) 2 puff INHALE Q4H PRN PRN Reason: shortness of breath or wheezing Brimonidine Tartrate (Brimonidine Tartrate 0.2% Oph 5 Ml Bottle) 1 drop EYE- BOTH BID COUNTS INCLUDE 234 BEDS AT THE [facility] Last Admin: 10/29/23 10:48 Dose: 1 drop Calcium Carbonate (Calcium Carbonate 750 Mg Tab.Chew) 750 mg PO Q4H PRN PRN Reason: Heartburn Clonazepam (Clonazepam 1 Mg Tablet) 1 mg PO BID COUNTS INCLUDE 234 BEDS AT THE [facility] Last Admin: 10/29/23 10:46 Dose: 1 mg Divalproex Sodium (Divalproex Sodium Er 500 Mg Tab.Er.24h) 500 mg PO DAILY COUNTS INCLUDE 234 BEDS AT THE [facility] Last Admin: 10/29/23 10:45 Dose: 500 mg Enoxaparin Sodium (Enoxaparin Sodium 40 Mg/0.4 Ml Syringe) 40 mg SUBCUT Q24H COUNTS INCLUDE 234 BEDS AT THE [facility] Last Admin: 10/28/23 19:16 Dose: 40 mg Fluticasone Propionate (Fluticasone Propionate Nasal 16 Gm Marcell) 1 spray NOSTRIL-B DAILY PRN PRN Reason: Allergy Symptoms Gabapentin (Gabapentin 600 Mg Tablet) 600 mg PO QID COUNTS INCLUDE 234 BEDS AT THE [facility] Last Admin: 10/29/23 13:15 Dose: 600 mg Magnesium Hydroxide (Milk Of Magnesia 30 Ml Oral.Susp) 30 ml PO DAILY PRN PRN Reason: Constipation Melatonin (Melatonin 3 Mg Tablet) 6 mg PO BEDTIME PRN PRN Reason: Insomnia Ondansetron HCl (Ondansetron Hcl 4 Mg/2 Ml Vial) 4 mg IVPUSH Q8H PRN PRN Reason: Nausea and Vomiting Paroxetine HCl (Paroxetine Hcl 10 Mg Tablet) 10 mg PO BEDTIME COUNTS INCLUDE 234 BEDS AT THE [facility] Paroxetine HCl (Paroxetine Hcl 40 Mg Tablet) 40 mg PO BEDTIME COUNTS INCLUDE 234 BEDS AT THE [facility] Quetiapine Fumarate (Quetiapine Fumarate 25 Mg Tablet) 25 mg PO BID PRN PRN Reason: Anxiety Quetiapine Fumarate (Quetiapine Fumarate 100 Mg Tablet) 100 mg PO BEDTIME COUNTS INCLUDE 234 BEDS AT THE [facility] Sodium Chloride (0.9 % Sodium Chloride Flush 3 Ml Syringe) 3 ml IVFLUSH QSHIFT COUNTS INCLUDE 234 BEDS AT THE [facility] Last Admin: 10/29/23 07:25 Dose: 3 ml Home Medications ?Medication ?Instructions ?Recorded ?Confirmed ?Last Taken ?Type quetiapine 25 mg tablet 25 mg PO BID PRN Anxiety 01/16/21 10/28/23 03/23/22 History brimonidine 0.2 % eye drops 1 drp ophthalmic (eye) BID 04/12/21 10/28/23 10/28/23 History paroxetine HCl 40 mg tablet 40 mg PO BEDTIME 08/23/21 10/28/23 10/28/23 History clonazepam 1 mg tablet 1 mg PO BID 04/29/22 10/28/23 10/28/23 History paroxetine HCl 10 mg tablet 10 mg PO BEDTIME 06/18/22 10/28/23 10/28/23 History gabapentin 600 mg tablet 600 mg PO QID 06/03/23 10/28/23 10/28/23 History (Neurontin) quetiapine 100 mg tablet 100 mg PO BEDTIME 06/03/23 10/28/23 10/28/23 History divalproex 500 mg tablet,extended 500 mg PO DAILY 10/28/23 10/28/23 10/28/23 History release 24 hr (Depakote ER) fluticasone propionate 50 1 spray intranasal DAILY PRN 10/28/23 10/28/23 Unknown History mcg/actuation nasal Allergy Symptoms spray,suspension Physical Exam 2 Vital Signs: Vital Signs: Last Vital Signs Temp 97.6 F 10/29/23 05:01 Pulse 69 10/29/23 14:02 Resp 14 10/29/23 14:02 BP 110/49 L 10/29/23 14:02 Pulse Ox 98 10/29/23 14:02 O2 Del Method Room Air 10/29/23 14:02 BMI result Body Mass Index 22.2 Neuro: Other: Slightly sleepy but oriented x3. Normal nonfocal neurological examination Results Labs 10/29/23 04:57 10/29/23 04:57 Labs: Short CBC 10/29/23 Range/Units 04:57 WBC 3.5 L (4.8-10.8) X10*3/uL Hgb 11.3 L (12.0-16.0) g/dl Hct 34.2 L (37.0-47.0) % Plt Count 181 (160-400) X10*3/uL BMP 10/29/23 04:57 Sodium 143 Potassium 4.1 Chloride 110 H Carbon Dioxide 26 BUN 14 Creatinine 0.72 Calcium 8.8 D Assessment and Plan (1) Syncope: Status: Acute Recurrent syncope x4 in the last 2 days. Rule out cardiogenic syncope. She also has a history of partial seizures so I cannot entirely rule out the possibility that these are not seizures. Her valproic acid level is subtherapeutic and she is only taking 500 mg Depakote daily. Recommendation 30 day cardiac event monitor. Increase Depakote to 500 mg twice a day. Outpatient followup with Dr. Evans Procedures Date of Service Date of Service: 10/29/23
[2023-10-31 02:57] LABS: Levetiracetam Keppra <2.0 mcg/mL (6.0-46.0)
== END 2023-10-29 16:54 | disposition home or self-care (01) ==
LOC: HO.ED 17:36 → HO.EDOVER 17:39
PROVIDERS: Physician Assistant; Admitting Provider Physician Assistant; Emergency Provider Student in an Organized Health Care Education/Training Program; PCP Internal Medicine; Visit Provider Physician Assistant
DX: R55 Syncope and collapse (principal); G35 Multiple sclerosis; G40.909 Epilepsy, unspecified, not intractable, without status epilepticus; S09.90XA Unspecified injury of head, initial encounter; W18.09XA Striking against other object with subsequent fall, initial encounter; Y93.89 Activity, other specified; Y92.238 Other place in hospital as the place of occurrence of the external cause; Y99.9 Unspecified external cause status; D64.9 Anemia, unspecified; F32.A Depression, unspecified; I10 Essential (primary) hypertension; E78.5 Hyperlipidemia, unspecified; G89.4 Chronic pain syndrome; F39 Unspecified mood [affective] disorder; H40.9 Unspecified glaucoma; J45.40 Moderate persistent asthma, uncomplicated; Z79.899 Other long term (current) drug therapy
CPT/HCPCS: 36415; 70450; 71045; 72125; 80048; 80053; 80164; 80177; 80307; 81003; 83605; 83735; 84484; 85025; 87635; 93005; 95816; 96360; 96361; 96372; 99222; 99285; J1650

== ENCOUNTER → 2023-10-28 17:28 | Outpatient (BNV) | payer OTHER, SELFPAY | PROVIDERS: Admitting Provider Physician Assistant; Emergency Provider Student in an Organized Health Care Education/Training Program; PCP Internal Medicine; Visit Provider Psychiatry & Neurology Neurology | DX: R55 Syncope and collapse (principal) | CPT/HCPCS: 99222 ==

== ENCOUNTER → 2023-10-28 17:28 | Outpatient (BNV) | payer OTHER, SELFPAY | PROVIDERS: Admitting Provider Physician Assistant; Emergency Provider Student in an Organized Health Care Education/Training Program; PCP Internal Medicine; Visit Provider Physician Assistant | DX: R55 Syncope and collapse (principal) | CPT/HCPCS: 99223; 99239 ==

== ENCOUNTER 2023-11-05 08:23 | Outpatient (AMB) | payer OTHER, SELFPAY ==
--- NOTE | 2023-11-05 08:27 | MHC.OFFVIS ---
Vital Signs 11/05/23 08:31 Height 5 ft 7 in Weight 145 lb 8 oz BMI 22.8 BP 116/68 Blood Pressure Location Lt brachial Position Sitting Respiration 16 Pulse 80 Pulse Source Pulse Oximeter Pulse Oximetry (%) 100 Oxygen Delivery Method Room Air Intake Visit Reasons: Med review Intake Note: Patient comes in for medication review. Reports pain 09/26. Allergies Iodinated Contrast Media [Iodinated Contrast Media - IV Dye] Allergy (Intermediate, Verified 10/28/23 12:29) HIVES ketorolac [From Toradol] Allergy (Intermediate, Verified 10/28/23 12:29) localized redness/swelling HPI Comments Details: Therese is in my office today to discuss possibility of further treatment and to request to renew her methocarbamol medication. She mostly complains today on pain in the right hip area with pain exacerbation with walking and standing up from the chair. She reports that lateral and medial rotation of the hip joint causes severe discomfort in the right groin. In 2022 she had a hip x-ray which demonstrated no hip pathology. However I am firmly convinced today that she has right hip arthritis, to differentiate between her other pain generators I offered the patient to have diagnostic right hip injection. She has extensive degenerative disc disease, postlaminectomy syndrome, spondylosis of lumbar spine. She is suffering from chronic pain syndrome. She is suffering from glaucoma and steroids are contraindicated for her. We discussed possibility of treating her hip condition with PRP injection into the right hip joint. Patient appears to be interested. She requested me today to start her on some muscle relaxants. I offered her methocarbamol. She is status post caudal BETSEY and right GTB injection on 08/21/22 and Right Therapeutic SIJ injection on 07/24/22 . Caudal BETSEY provided 80% pain relief for radicular back symptoms with improvement in her daily functions and activities. That lasted 3 weeks only. I cannot consider caudal BETSEY repeatin the future for her. Now she is losing eye site on the right eye and her lumber grader forbade her to have any steroid injections. the therapeutic injections are impossible to treat her pain in the future. MBB resulted in no pain improvement. I think neuromodulation would be very good thing to do for this patient. MBB resulted in no pain improvement. History of axial pain and pain exacerbated with prolonged sitting give the makes me think about vertebrogenic pain. She went for MRI which demonstrated vertebral Modic type changes. However given the choice between spinal cord stimulator and intrathecal pain pump pain relief for this patient which do not require steroid administration and intercept procedure which might require significant doses of steroids I decided to proceed with neuromodulation as Nevro SCS and I DDD [employer]. Nevro SCS was tried on her. She dislodged her electrode due to severe heaving, nausea and vomiting at least 1 full vertebral body down however the top electrode still was positioned at the top of T9 which could potentially give us significant pain relief due to stimulation. However patient denied any help from stimulation. Intrathecal pain pump was discussed in the past with the patient however she is reluctant to go for the procedure. PENDING SALE TO [facility] Medical History Seizure disorder Syncope Cervical spondylosis with radiculopathy Cervical radiculopathy Cervical strain Neck pain Seroma due to trauma Hematoma following procedure Calf pain Incisional pain Postoperative bleeding from incision Cellulitis Anemia Anxiety with depression Fatty liver Back pain Arthritis Abscess or cellulitis of knee Skin laxity Hyperlipidemia Neutropenia GERD (gastroesophageal reflux disease) COVID-19 vaccine administered Sacroiliitis Postlaminectomy syndrome Bunion of left foot Postconcussion syndrome Labral tear of right hip joint Spinal stenosis Colon polyps Allergic rhinitis Herpes Chronic sinusitis Depression Migraines Asthma Hypotension Malabsorption due to intolerance, not elsewhere classified Surgical History Hx of spinal fusion S/P plastic surgery S/P panniculectomy History of hip surgery History of endometrial ablation S/P tonsillectomy S/P bilateral foot surgery History of appendectomy H/O colonoscopy H/O endoscopy S/P laparoscopic sleeve gastrectomy H/O laminectomy Family History Father No problems noted. Mother Cervical spine tumor Brother No problems noted. Brother No problems noted. Brother No problems noted. Brother No problems noted. Sister Mental health disorder Son No problems noted. Daughter No problems noted. Social History Household Members: Spouse Housing: House Are you a primary health care liaison to a significant other at home: No Do you presently have visiting nurse or other home services: No Alcohol intake: former Comment: count correct Patient Tobacco Use Status: Never used Tobacco e-Cigarette/Vaping Use: Never Used Second Hand Smoke Exposure: No Substance Use Type: Marijuana Advance Directives Date on File: 08/28/21 service: No Current occupational status: disabled Cognitive needs: No Hearing needs: No Vision needs: No Review of Systems Const All systems reviewed & are unremarkable except as noted in HPI and below ENT Reports Normal hearing present Neuro Reports Normal hearing present and Denies confusion Psych Denies confusion Physical Exam Vital Signs: Last Vital Signs Pulse 80 11/05/23 08:31 Resp 16 11/05/23 08:31 BP 116/68 11/05/23 08:31 Pulse Ox 100 11/05/23 08:31 Oxygen Delivery Method Room Air 11/05/23 08:31 BMI result Body Mass Index 22.8 Const General: cooperative, alert and awake; No confusion Orientation/consciousness: patient oriented x3 and No confusion Resp Effort & Inspection: able to speak in complete sentences, no audible wheezes and no cough Back/Spine/Pelvis Other: Loading test is positive bilaterally tenderness on palpation on lower lumbar and mid lumbar spine, paraspinal regions are less tender on palpation in the area however also cause significant tenderness. Flexing forward and flexing backwards both aggravate pain with flexing backwards to be more aggravating than flexing forward. Neuro General: patient oriented x3 and No confusion Cranial nerves: Yes Normal hearing present Cognition (Neuro): normal cognition Psych Mental Status: mental status grossly normal Speech and movement: Clear speech present Affect: normal affect Attitude: cooperative Thought process: Normal thought process present Thought content: Normal thought content present and No Depressive thoughts present Insight: Good insight present (Psych) Judgement: Good judgement present (Psych) Assessment & Plan Assessment & Plan (1) Calcification of aorta: Code(s): I70.0 - Atherosclerosis of aorta Category: Medical (2) Arterial calcification: Code(s): I70.90 - Unspecified atherosclerosis Category: Medical (3) Trochanteric bursitis of right hip: Code(s): M70.61 - Trochanteric bursitis, right hip Category: Medical (4) Lumbosacral spondylosis with radiculopathy: Code(s): M47.27 - Other spondylosis with radiculopathy, lumbosacral region Category: Medical (5) Right hip pain: Code(s): M25.551 - Pain in right hip Category: Medical (6) Failed back syndrome, lumbar: Code(s): M96.1 - Postlaminectomy syndrome, not elsewhere classified Category: Medical Plan: (7) Chronic pain syndrome: Code(s): G89.4 - Chronic pain syndrome Category: Medical (8) Sacroiliitis: Comment: S/p SI joint steroid injection 08/27/19, 12/08/20, 11/16/21 Code(s): M46.1 - Sacroiliitis, not elsewhere classified Category: Medical (9) Vertebrogenic low back pain: Code(s): M54.51 - Vertebrogenic low back pain Category: Medical (10) Spondylosis of lumbar region without myelopathy or radiculopathy: Code(s): M47.816 - Spondylosis without myelopathy or radiculopathy, lumbar region Category: Medical Plan Patient is status post caudal BETSEY and right GTB injection on 08/21/22 and Right Therapeutic SIJ injection on 07/24/22 . Caudal BETSEY provided 80% pain relief for radicular back symptoms with improvement in her daily functions and activities. That lasted 3 weeks only. I cannot consider caudal BETSEY repeatin the future for her. Now she is losing eye site on the right eye and her lumber grader forbade her to have any steroid injections. the therapeutic injections are impossible to treat her pain in the future. MBB resulted in no pain improvement. I think neuromodulation would be very good thing to do for this patient. MBB resulted in no pain improvement. History of axial pain and pain exacerbated with prolonged sitting give the makes me think about vertebrogenic pain. She went for MRI which demonstrated vertebral Modic type changes. However given the choice between spinal cord stimulator and intrathecal pain pump pain relief for this patient which do not require steroid administration and intercept procedure which might require significant doses of steroids I decided to proceed with neuromodulation as Nevro SCS and I DDD [employer]. Nevro SCS tried on her. She dislodged her electrode due to severe having nausea and vomiting at least 1 full vertebral body down however the top electrode still was positioned at the top of T9 which could potentially give us significant pain relief due to stimulation. However patient denied any help from stimulation. she is reluctant to go for ITDD. Of note in 2 years she is moving to [place] Medications: New methocarbamol 500 mg PO TID 30 days 90 tabs 6RF Patient Instructions: I here by testify that I spent 30 minutes in conversation with this patient as well as evaluating her prior records and diagnostic studies and planning her care. Coding Level of Care Code Est Pt Level 4 (50318) Diagnoses Calcification of aorta I70.0 Arterial calcification I70.90 Trochanteric bursitis of right hip M70.61 Lumbosacral spondylosis with radiculopathy M47.27 Right hip pain M25.551 Failed back syndrome, lumbar M96.1 Chronic pain syndrome G89.4 Sacroiliitis M46.1 Vertebrogenic low back pain M54.51 Spondylosis of lumbar region without myelopathy or radiculopathy M47.816
[2023-11-05 08:31] VITALS: BP 116/68; PULSE 80; RESP 16; O2SAT 100; BMI 22.8
== END 2023-11-05 08:44 | disposition home or self-care (01) ==
PROVIDERS: PCP Internal Medicine; Visit Provider Anesthesiology
DX: I70.0 Atherosclerosis of aorta (principal); I70.90 Unspecified atherosclerosis; M70.61 Trochanteric bursitis, right hip; M47.27 Other spondylosis with radiculopathy, lumbosacral region; M25.551 Pain in right hip; M96.1 Postlaminectomy syndrome, not elsewhere classified; G89.4 Chronic pain syndrome; M46.1 Sacroiliitis, not elsewhere classified; M54.51 Vertebrogenic low back pain; M47.816 Spondylosis without myelopathy or radiculopathy, lumbar region
CPT/HCPCS: 99214

== ENCOUNTER → 2023-11-05 08:23 | Outpatient (BNVA) | payer OTHER, SELFPAY | PROVIDERS: PCP Internal Medicine; Visit Provider Anesthesiology | DX: Z51.81 Encounter for therapeutic drug level monitoring (principal); M47.27 Other spondylosis with radiculopathy, lumbosacral region; M25.551 Pain in right hip; M96.1 Postlaminectomy syndrome, not elsewhere classified; M46.1 Sacroiliitis, not elsewhere classified; M54.51 Vertebrogenic low back pain; M47.816 Spondylosis without myelopathy or radiculopathy, lumbar region; G89.4 Chronic pain syndrome; I70.0 Atherosclerosis of aorta; I70.90 Unspecified atherosclerosis; Z79.899 Other long term (current) drug therapy | CPT/HCPCS: 99212 ==

== ENCOUNTER 2023-11-12 08:38 | Outpatient (AMB) | payer OTHER, SELFPAY ==
--- NOTE | 2023-11-12 08:40 | A.OFFPC_ITS ---
"Vital Signs 11/12/23 08:41 Height 5 ft 7 in Weight 148 lb BMI 23.2 BP 88/54 L Blood Pressure Location Lt brachial Position Sitting Pulse 89 Pulse Source Pulse Oximeter Pulse Oximetry (%) 98 Oxygen Delivery Method Room Air Intake Visit Reasons: syncope ? complex migraine Intake Note: Pt is here today for a ER follow up visit. Allergies Iodinated Contrast Media [Iodinated Contrast Media - IV Dye] Allergy (Intermediate, Verified 11/12/23 08:43) HIVES ketorolac [From Toradol] Allergy (Intermediate, Verified 11/12/23 08:43) localized redness/swelling Tobacco use date assessed: 11/12/23 Dental Screening Dental Screen Date: 02/21/23 HPI syncope ? complex migraine HPI Details Patient presents for the follow-up of ER visit for the episode of lightheadedness and a fall. Patient was found to have low blood pressure but denies loss of consciousness, seizure activity or head trauma. She has a history of hospitalization at ER visit for hypotension and tried midodrine with Florinef in the past but could not tolerate the medications. She is established with Cardiology. Patient follows up with a psychiatrist for chronic depression and anxiety and has been tapering down clonazepam. [facility] Medical History (Updated 11/12/23 @ 15:42 by Corinne Figueroa MD) Seizure disorder Syncope Cervical spondylosis with radiculopathy Cervical radiculopathy Cervical strain Neck pain Seroma due to trauma Hematoma following procedure Calf pain Incisional pain Postoperative bleeding from incision Cellulitis Anemia Anxiety with depression Fatty liver Back pain Arthritis Abscess or cellulitis of knee Skin laxity Hyperlipidemia Neutropenia GERD (gastroesophageal reflux disease) COVID-19 vaccine administered Sacroiliitis Postlaminectomy syndrome Bunion of left foot Postconcussion syndrome Labral tear of right hip joint Spinal stenosis Colon polyps Allergic rhinitis Herpes Chronic sinusitis Depression Migraines Asthma Hypotension Malabsorption due to intolerance, not elsewhere classified Surgical History Hx of spinal fusion S/P plastic surgery S/P panniculectomy History of hip surgery History of endometrial ablation S/P tonsillectomy S/P bilateral foot surgery History of appendectomy H/O colonoscopy H/O endoscopy S/P laparoscopic sleeve gastrectomy H/O laminectomy Family History Father No problems noted. Mother Cervical spine tumor Brother No problems noted. Brother No problems noted. Brother No problems noted. Brother No problems noted. Sister Mental health disorder Son No problems noted. Daughter No problems noted. Social History Household Members: Spouse Housing: House Are you a primary outdoor emergency care technician to a significant other at home: No Do you presently have visiting nurse or other home services: No Alcohol intake: former Comment: count correct Patient Tobacco Use Status: Never used Tobacco e-Cigarette/Vaping Use: Never Used Second Hand Smoke Exposure: No Substance Use Type: Marijuana Advance Directives Date on File: 08/28/21 service: No Current occupational status: disabled Cognitive needs: No Hearing needs: No Vision needs: No Questionnaire Thrive Questionnaire Date Thrive assessed: 10/29/23 FERNANDA-7 AMB Questionnaire FERNANDA-7 Date FERNANDA - 7 assessed: 02/21/23 Source: Developed by Drs. Koko Nunez, Codi Leslie, Mendoza Jack and colleagues, with an educational bronwyn from e|[employer]. Review of Systems Const All systems reviewed & are unremarkable except as noted in HPI and below Card Reports no additional complaints Resp Reports no additional complaints GI Reports no additional complaints Reports no additional complaints Physical exam (Primary Care) Vital Signs: Last Vital Signs Pulse 89 11/12/23 08:41 BP 88/54 L 11/12/23 08:41 Pulse Ox 98 11/12/23 08:41 Oxygen Delivery Method Room Air 11/12/23 08:41 BMI result Body Mass Index 23.2 Tobacco/Smoking Status: Tobacco use Status Tobacco use date assessed 11/12/23 11/12/23 08:46 Patient Tobacco Use Status Never used Tobacco 11/12/23 08:46 e-Cigarette/Vaping Use Never Used 11/12/23 08:46 Thrive Assessment: Date of Thrive Assessment Date Thrive assessed 10/29/23 11/12/23 08:46 Const General: no acute distress HENMT Head: Yes normal to inspection Neck Neck: Yes supple Resp Effort & Inspection: normal respiratory effort Auscultation: clear to auscultation bilaterally Cardio Rhythm: regular rhythm Heart sounds: S1 normal heart sound present and S2 normal heart sound present GI Inspection: Yes normal to inspection Palpation (GI): Soft to palpation Neuro General: CN's II-XI intact bilaterally Gait exam (Neuro): Normal gait present Motor exam (neuro): 5/5 motor strength present throughout Assessment and Plan Assessment & Plan (1) Anemia: Code(s): D64.9 - Anemia, unspecified Plan: Check iron studies (2) Syncope: Comment: Chronic hypotension, intolerant to midodrine and Florinef, established with [facility] Code(s): R55 - Syncope and collapse Plan: Patient will follow-up with cardiology. She was advised to increase fluid and sodium intake (3) Hyperlipidemia: Code(s): E78.5 - Hyperlipidemia, unspecified Plan: Continue low-cholesterol diet (4) Multiple sclerosis: Comment: In remission follow-up with Neurology Code(s): G35 - Multiple sclerosis (5) Seizures: Comment: Follow-up with Neurology, controlled on Keppra Code(s): R56.9 - Unspecified convulsions Plan: Patient follows up with Neurology Orders: Orders TSH reflex Free T4 Today D64.9 - Anemia, unspecified IRON PROFILE Today D64.9 - Anemia, unspecified Coding Level of Care Code Est Pt Level 4 (41795) Diagnoses Anemia D64.9 Syncope R55 Hyperlipidemia E78.5 Multiple sclerosis G35 Seizures R56.9"
[2023-11-12 08:41] VITALS: BP 88/54; PULSE 89; O2SAT 98; BMI 23.2
== END 2023-11-12 09:31 | disposition home or self-care (01) ==
PROVIDERS: PCP Internal Medicine; Visit Provider Internal Medicine
DX: D64.9 Anemia, unspecified (principal); G35 Multiple sclerosis; R56.9 Unspecified convulsions; R55 Syncope and collapse; E78.5 Hyperlipidemia, unspecified

== ENCOUNTER → 2023-11-12 08:38 | Outpatient (BNVA) | payer OTHER, SELFPAY | PROVIDERS: PCP Internal Medicine; Visit Provider Internal Medicine ==

== ENCOUNTER 2023-11-12 09:11 | Outpatient (REF) | payer OTHER, SELFPAY ==
[2023-11-12 14:31] LABS: Iron 131 mcg/dL (30-160); Percent Iron Saturation 53 % (15-50); TSH reflex Free T4 0.65 uIU/mL (0.32-4.0); Total Iron Binding Capacity 248 mcg/dL (228-428); Unsaturated Iron Binding 117 ug/dL
== END 2023-11-12 09:12 | disposition home or self-care (01) ==
LOC: HO.HMGCLDS 09:11
PROVIDERS: PCP Internal Medicine; Visit Provider Internal Medicine
DX: D64.9 Anemia, unspecified (principal); R55 Syncope and collapse; E78.5 Hyperlipidemia, unspecified; G35 Multiple sclerosis; R56.9 Unspecified convulsions
CPT/HCPCS: 36415; 83540; 84443; 99212

== ENCOUNTER 2023-11-25 13:32 | Outpatient (AMB) | payer OTHER, SELFPAY ==
[2023-11-25 13:35] VITALS: BP 102/58; PULSE 88; BMI 22.4
--- NOTE | 2023-11-25 13:35 | A.OFFVIS_ITS ---
Vital Signs 11/25/23 13:35 Height 5 ft 7 in Weight 143 lb 4.807 oz BMI 22.4 BP 102/58 L Blood Pressure Location Lt brachial Position Sitting Pulse 88 Pulse Source Pulse Oximeter Intake Visit Reasons: follow up after ER Visit Allergies Iodinated Contrast Media [Iodinated Contrast Media - IV Dye] Allergy (Intermediate, Verified 11/12/23 08:43) HIVES ketorolac [From Toradol] Allergy (Intermediate, Verified 11/12/23 08:43) localized redness/swelling Medication List - Last Reconciled 11/25/23 by Honorio Byers MD albuterol sulfate 90 mcg/actuation 2 puffs inhalation Q4-6H PRN brimonidine 0.2% 1 drp ophthalmic (eye) BID taqrvfcifc-[id number]-[id number] 50-325-40 mg 1 tab PO BID PRN clonazepam 1 mg PO BID divalproex ER (Depakote ER) 500 mg PO BID fluticasone furoate-vilanterol 100-25 mcg/dose 1 inh inhalation DAILY fluticasone propionate 50 mcg/actuation 1 spray intranasal DAILY PRN gabapentin (Neurontin) 600 mg PO TID methocarbamol 500 mg PO TID 30 days paroxetine HCl 40 mg PO BEDTIME paroxetine HCl 10 mg PO BEDTIME quetiapine 100 mg PO BEDTIME quetiapine 25 mg PO BID PRN HPI Comments Details: Therese returns for follow up regarding low blood pressure issues. To recall, she was originally seen many years ago as pre-operative evaluation for bariatric surgery. Then underwent gastric sleeve surgery in 2019. She lost lot of weight secondary to this. Subsequently, she was running a lot of low blood pressures and hence numerous dizzy episodes and syncopal episodes. Prior to surgery, she had borderline elevated blood pressure and was on hydrochlorothiazide but later stopped. We have tried numerous medications including midodrine and Florinef without any significant improvement. She is off all of these. She also tried Northera but developed cramps and hence stopped taking that. Recently, she was again hospitalized for syncopal episodes. Wonder if it is because of further weight loss. When she was seen in February of this year, she was weighing about 160 lb but right now in the 140s. Hence additional weight loss could have led to hypotension/presyncope/syncope. [facility] Medical History (Updated 11/12/23 @ 15:42 by Corinne Figueroa MD) Seizure disorder Syncope Cervical spondylosis with radiculopathy Cervical radiculopathy Cervical strain Neck pain Seroma due to trauma Hematoma following procedure Calf pain Incisional pain Postoperative bleeding from incision Cellulitis Anemia Anxiety with depression Fatty liver Back pain Arthritis Abscess or cellulitis of knee Skin laxity Hyperlipidemia Neutropenia GERD (gastroesophageal reflux disease) COVID-19 vaccine administered Sacroiliitis Postlaminectomy syndrome Bunion of left foot Postconcussion syndrome Labral tear of right hip joint Spinal stenosis Colon polyps Allergic rhinitis Herpes Chronic sinusitis Depression Migraines Asthma Hypotension Malabsorption due to intolerance, not elsewhere classified Surgical History Hx of spinal fusion S/P plastic surgery S/P panniculectomy History of hip surgery History of endometrial ablation S/P tonsillectomy S/P bilateral foot surgery History of appendectomy H/O colonoscopy H/O endoscopy S/P laparoscopic sleeve gastrectomy H/O laminectomy Family History Father No problems noted. Mother Cervical spine tumor Brother No problems noted. Brother No problems noted. Brother No problems noted. Brother No problems noted. Sister Mental health disorder Son No problems noted. Daughter No problems noted. Social History Household Members: Spouse Housing: House Are you a primary animal caretaker supervisor to a significant other at home: No Do you presently have visiting nurse or other home services: No Alcohol intake: former Comment: count correct Patient Tobacco Use Status: Never used Tobacco e-Cigarette/Vaping Use: Never Used Second Hand Smoke Exposure: No Substance Use Type: Marijuana Advance Directives Date on File: 08/28/21 service: No Current occupational status: disabled Cognitive needs: No Hearing needs: No Vision needs: No Review of Systems Const Denies weakness ENT Denies dizziness Card Denies chest pain, Denies chest pain with activity, Denies syncope, Denies rapid heart rate, Denies pedal edema, Denies edema, Denies leg edema, Denies lightheadedness, Denies palpitations, Denies dyspnea, Denies dyspnea on exertion and Denies orthopnea Resp Denies cough, Denies dyspnea and Denies dyspnea on exertion GI Denies hematochezia and Denies change in stool character Musc Denies abnormal gait, Denies muscle cramps, Denies muscle weakness, Denies numbness, Denies radiating pain into limb and Denies tingling Neuro Denies abnormal gait, Denies dizziness, Denies syncope, Denies numbness, Denies tingling and Denies weakness Endo Denies palpitations Physical Exam Vital Signs: Last Vital Signs Pulse 88 11/25/23 13:35 BP 102/58 L 11/25/23 13:35 BMI result Body Mass Index 22.4 Const General: comfortable and no acute distress Orientation/consciousness: patient oriented x3 HEENT Other: Unremarkable Head: Yes normal to inspection Neck Neck: Yes normal visual inspection Chest Chest palpation & inspection: normal inspection of the chest Resp Auscultation: clear to auscultation bilaterally Cardio Palpation: normal PMI Heart sounds: S1 normal heart sound present, S2 normal heart sound present, no gallops, no murmurs and no rubs GI Palpation (GI): Soft to palpation Back/Spine/Pelvis Other: unremarkable Skin General skin exam: no rashes or lesions noted Neuro General: patient oriented x3 Extrem General: Yes normal to inspection Psych Mental Status: mental status grossly normal Assessment & Plan Assessment & Plan (1) Syncope and collapse: Code(s): R55 - Syncope and collapse Category: Medical (2) Orthostatic hypotension: Code(s): I95.1 - Orthostatic hypotension Category: Medical (3) S/P laparoscopic sleeve gastrectomy: Comment: 07/16/18 Code(s): Z98.84 - Bariatric surgery status Category: Surgical Plan I believe there is correlation between her weight and blood pressure readings and symptoms like syncope. She was actually doing okay when I saw her earlier this year when her weight was 160 lb but again having dizziness/syncope when weight is in the 140s. Hence recommendation is to probably avoid losing any further weight and rather try to gain a few lb. Hopefully that will maintain her blood pressure and prevent any further episodes of syncope. We discussed about this today. Avoid any medications for increasing blood pressure like midodrine at this time. With regard to other medications for anxiety/depression extra she states she absolutely needs these. Recent EKG -underlying sinus rhythm at 71/Min; no significant ST-T changes and otherwise unremarkable. Normal CO and corrected QT. hs Trop -ve, several sets over years, most recently last month. Echocardiogram 2019-LVEF 60-65%; normal filling pattern and no significant valvular findings. Total time spent including review of data, counseling, documentation, coordination of care-32 minutes. Coding Level of Care Code Est Pt Level 4 (24156) Diagnoses Syncope and collapse R55 Orthostatic hypotension I95.1 S/P laparoscopic sleeve gastrectomy Z98.84
== END 2023-11-25 15:48 | disposition home or self-care (01) ==
PROVIDERS: PCP Internal Medicine; Visit Provider Internal Medicine
DX: R55 Syncope and collapse (principal); I95.1 Orthostatic hypotension; Z98.84 Bariatric surgery status
CPT/HCPCS: 99214

== ENCOUNTER → 2023-11-25 13:32 | Outpatient (BNVA) | payer OTHER, SELFPAY | PROVIDERS: PCP Internal Medicine; Visit Provider Internal Medicine | DX: I95.1 Orthostatic hypotension (principal); R55 Syncope and collapse; Z98.84 Bariatric surgery status | CPT/HCPCS: 99212 ==

== ENCOUNTER 2024-01-20 11:31 | Emergency (ER) | payer OTHER, SELFPAY ==
[2024-01-20] VITALS (8 sets, daily range): BP systolic 92–139; BP diastolic 45–71; PULSE 61–75; RESP 16–18; TEMP 36.5–36.8; O2SAT 96–99; BMI 24.1
--- NOTE | ~2024-01-20 | CT_ITS ---
EXAMINATION: CT ABDOMEN AND PELVIS WITH CONTRAST CLINICAL INFORMATION: Lower ABD pain, weight loss R/O malignancy/SBO COMPARISON: CT abdomen pelvis 05/02/2022 TECHNIQUE: Multidetector volumetric imaging was performed from the superior aspect of the liver through the pubic symphysis with intravenous contrast. A total of 85 mL of Omnipaque 350 was utilized for the study. Sagittal and coronal reformatted images were obtained on the technologist's workstation. This CT examination was performed using dose optimization techniques as appropriate, variously including the following: *Automated exposure control *Adjustment of mA and/or kV according to patient size (this includes techniques or standardized protocols for targeted exams where dose is matched to indication/reason for exam; i.e. extremities or head) *Use of iterative reconstruction technique DLP: 436 mGy-cm FINDINGS: LUNG BASES: The visualized lung bases are unremarkable. LIVER, GALLBLADDER, AND BILIARY TREE: The liver is normal in size, shape, and attenuation. Focal fat deposition adjacent to falciform ligament. No concerning focal hepatic lesion or biliary ductal dilatation is present. Status post cholecystectomy. PANCREAS: Unremarkable. SPLEEN: Unremarkable. ADRENAL GLANDS: Unremarkable. KIDNEYS AND URETERS: The kidneys are normal in size, shape, and attenuation. No hydronephrosis, hydroureter, or calculi seen. No perinephric stranding. BLADDER: Unremarkable. GASTROINTESTINAL TRACT: Status post gastric sleeve The small and large bowel are unremarkable. The appendix is not seen but there is no evidence of appendicitis. ABDOMINAL WALL: No significant hernia is appreciated. LYMPH NODES: Normal. VASCULAR: Calcific atherosclerotic changes are present in the aorta and iliofemoral vessels. There is no evidence of an abdominal aortic aneurysm. The celiac, SMA and MANI are widely patent. PELVIC VISCERA: The uterus and adnexa are unremarkable. OSSEOUS STRUCTURES: Degenerative changes are seen predominantly at L4-L5 and L5-S1. CT/CT abdomen pelvis w IV con IMPRESSION: 1. A cause for the patient's lower abdominal pain and weight loss has not been found. No occult malignancy is found 2. Incidental note made of cholecystectomy, gastric sleeve and degenerative changes in the spine. Fleischner guidelines were followed. Electronically signed by: Jhonatan Reyna MD 01/20/2024 11:18 PM [facility] [place], [place]
--- NOTE | 2024-01-20 12:17 | ED_ITS ---
HPI - Abdominal Pain General Chief Complaint: Abdominal Pain Stated Complaint: Back pain 3 weeks, diarrhea Time Seen by Provider: 01/20/24 17:36 Source: patient Mode of arrival: ambulatory Limitations: no limitations History of Present Illness ED Provider: Dr. Steve Canchola HPI narrative: 63-year-old female with a history of anemia, chronic pain syndrome, arthritis, hyperlipidemia, seizures, multiple sclerosis, anxiety, depression, suicide ideation, spinal stenosis, asthma gastric sleeve surgery 2018, appendectomy, cholecystectomy who presents emergency department for evaluation of lower abdominal pain, right lower flank pain, diarrhea and weight loss times 3 months. Patient states she has constant lower abdominal pain which is 8.5/10. She describes it as a severe cramping sensation. She states she was had daily diarrhea at least 3 episodes per day with no blood or dark stool. She states that the stool is yellow. She states that the pain is not exacerbated by eating but she was had a decreased appetite and an unintentional 10 lb weight loss. She denied nausea, vomiting or sweats. She states she had a normal colonoscopy 3 years prior. She states that the pain got worse, her encouraged her to go to the emergency department and she was concerned that she will be traveling to [place] and she wants to figure out the cause for pain before she travels. Related Data Home Medications ?Medication ?Instructions ?Recorded ?Confirmed quetiapine 25 mg tablet 25 mg PO BID PRN Anxiety 01/16/21 01/28/24 brimonidine 0.2 % eye drops 1 drp ophthalmic (eye) BID 04/12/21 01/28/24 paroxetine HCl 40 mg tablet 40 mg PO BEDTIME 08/23/21 01/28/24 clonazepam 1 mg tablet 1 mg PO BID 04/29/22 01/28/24 paroxetine HCl 10 mg tablet 10 mg PO BEDTIME 06/18/22 01/28/24 quetiapine 100 mg tablet 100 mg PO BEDTIME 06/03/23 01/28/24 fluticasone propionate 50 1 spray intranasal DAILY PRN 10/28/23 01/28/24 mcg/actuation nasal Allergy Symptoms spray,suspension Previous Rx's ?Medication ?Instructions ?Recorded albuterol sulfate 90 mcg/actuation 2 puff inhalation Q4-6H PRN 08/26/23 aerosol inhaler shortness of breath or wheezing #8.5 grams divalproex 500 mg tablet,extended 500 mg PO BID #180 tabs 10/29/23 release 24 hr (Depakote ER) methocarbamol 500 mg tablet 500 mg PO TID 30 days #90 tabs 11/05/23 fluticasone furoate 100 1 inh inhalation DAILY #60 ea 11/18/23 mcg-vilanterol 25 mcg/dose inhalation powder gabapentin 600 mg tablet 600 mg PO TID 30 days #90 tabs 12/05/23 (Neurontin) qpbpblnnwq-sxbhwjhwviryp-zesidwbo 1 tab PO BID PRN pain #30 tabs 12/26/23 50 mg-325 mg-40 mg tablet valacyclovir 1 gram tablet 2,000 mg (2 x 1 gram) PO Q12H #12 01/20/24 (Valtrex) tabs Allergies Allergy/AdvReac Type Severity Reaction Status Date / Time Iodinated Contrast Media Allergy Intermediate HIVES Verified 01/28/24 11:03 [Iodinated Contrast Media - IV Dye] ketorolac [From Toradol] Allergy Intermediate localized Verified 01/28/24 11:03 redness/swelling Review of Systems Review of Systems Yes all other systems are reviewed and are negative [facility] Past Medical History Medical History (Updated 01/22/24 @ 00:00 by Background Daemon) Seizure disorder Syncope Cervical spondylosis with radiculopathy Cervical radiculopathy Cervical strain Neck pain Seroma due to trauma Hematoma following procedure Calf pain Incisional pain Postoperative bleeding from incision Cellulitis Anemia Anxiety with depression Fatty liver Back pain Arthritis Abscess or cellulitis of knee Skin laxity Hyperlipidemia Neutropenia GERD (gastroesophageal reflux disease) COVID-19 vaccine administered Sacroiliitis Postlaminectomy syndrome Bunion of left foot Postconcussion syndrome Labral tear of right hip joint Spinal stenosis Colon polyps Allergic rhinitis Herpes Chronic sinusitis Depression Migraines Asthma Hypotension Malabsorption due to intolerance, not elsewhere classified Surgical History Hx of spinal fusion S/P plastic surgery S/P panniculectomy History of hip surgery History of endometrial ablation S/P tonsillectomy S/P bilateral foot surgery History of appendectomy H/O colonoscopy H/O endoscopy S/P laparoscopic sleeve gastrectomy H/O laminectomy Family History Family History Father No problems noted. Mother Cervical spine tumor Brother No problems noted. Brother No problems noted. Brother No problems noted. Brother No problems noted. Sister Mental health disorder Son No problems noted. Daughter No problems noted. Social History Social History Household Members: Spouse Housing: House Are you a primary healthcare sales representative to a significant other at home: No Do you presently have visiting nurse or other home services: No Unable to assess alcohol history related to: Unknown Alcohol intake: former Comment: count correct Patient Tobacco Use Status: Never used Tobacco e-Cigarette/Vaping Use: Never Used Second Hand Smoke Exposure: No Substance Use Type: Marijuana Advance Directives Date on File: 10/28/23 service: No Current occupational status: disabled Cognitive needs: No Hearing needs: No Vision needs: No Physical Exam ED Vital Signs: Vital Signs - 24 hr 01/20/24 12:14 01/20/24 16:47 01/20/24 17:30 Temperature 97.7 F 98.0 F 97.9 F Pulse Rate 75 73 65 Respiratory Rate 18 16 16 Blood Pressure 118/63 113/57 L 123/68 Pulse Oximetry 99 97 97 Oxygen Delivery Method Room Air Room Air Room Air 01/20/24 18:41 01/20/24 18:42 01/20/24 19:59 Temperature 97.8 F 97.8 F Pulse Rate 61 63 Respiratory Rate 16 16 16 Blood Pressure 138/71 139/56 L Pulse Oximetry 97 99 Oxygen Delivery Method Room Air Room Air 01/20/24 20:28 01/20/24 21:50 Temperature 98.3 F Pulse Rate 64 Respiratory Rate 18 16 Blood Pressure 92/45 L Pulse Oximetry 96 Oxygen Delivery Method Room Air BMI result Body Mass Index 24.1 Vital signs were normal Exam: General: Awake, alert in no distress Head: Normocephalic, atraumatic EENT: PERRL, Lids normal, sclera normal, conjunctiva normal, nose normal , ears normal, throat without erythema or exudates Neck: Supple, no adenopathy Lung: breath sounds symmetric, no wheezing, rales or rhonchi Chest: symmetric movement, nontender Heart: regular rate and rhythm, normal S1, S2 no murmurs or rubs Abdomen: soft, moderate lower abdominal tenderness with no good localization of the tenderness, normoactive bowel sounds, no rebound, no voluntary or involuntary guarding Back: no vertebral tenderness, moderate right CVA tenderness Extremities: no deformities, moves all extremities symmetrically Neuro: Awake, alert, oriented, normal speech, cranial nerves intact, moves all extremities symmetrically Psych: Pleasant, cooperative Course Course Course Narrative: This is a rapid medical exam performed by Danay Teague PA-C. The patient is a 63-year-old female with a history of anemia, chronic pain syndrome, arthritis, who presents with multiple complaints. Patient states she has been having ongoing abdominal cramping with daily diarrhea since the end of October. Over the past 3 weeks she developed right-sided lumbar pain that is focal and nonradiating. She has no red flag symptoms concerning for cord compression at this time. No change in her constellation of symptoms. We will be screening basic labs and a urinalysis. The patient is stable and is able to return to the waiting room pending her full medical assessment. Medical Decision Making Medical Decision Making MDM Narrative: 63-year-old female with a history of anemia, chronic pain syndrome, arthritis, hyperlipidemia, seizures, multiple sclerosis, anxiety, depression, suicide ideation, spinal stenosis, asthma gastric sleeve surgery 2018, appendectomy, cholecystectomy who presents emergency department for evaluation of lower abdominal pain/cramping, 8.5/10, right lower flank pain, diarrhea 3 episodes of yellow stool daily, decreased appetite and weight loss times 3 months. Vital signs were normal. Physical examination did reveal lower abdominal tenderness with no localizing tenderness, right lower flank tenderness. Differential diagnosis: ?Includes but is not limited to diverticulitis, pancreatitis, bowel malignancy, small-bowel obstruction, internal hernia, anemia, electrolyte abnormalities Patient was initially treated with the following: Morphine 4 mg IV, Zofran 4 mg IV, Benadryl 50 mg IV (10 minutes prior to IV contrast) and normal saline 1 L IV Course: 18:12 My interpretation patient's laboratory evaluation as follows: WBC low 3900, H&H low 11 and 34.3-unchanged since 11/07/2023. MCV was normal. Bicarb elevated 31. LFTs were normal. Lipase was normal. Urinalysis was negative. 00:20 Patient required a 2nd dose of morphine 4 mg IV for pain. CT scan of the abdomen pelvis with IV contrast did not reveal any clear cause for the patient's abdominal pain, diarrhea and weight loss. I did discuss this with the patient. The patient was advised to follow up with her technology sales representative for re- evaluation. She was advised to take Tylenol for pain. She was given printed and verbal instructions and discharged home Admission/Observation Consideration of admission/observation: Escalation of care including admission/observation considered (yes) Lab Data MDM Lab Attestation statement: I reviewed the patient's lab results. 01/20/24 12:43 01/20/24 12:43 Labs: Lab Results 01/20/24 Range/Units 12:43 WBC 3.9 L (4.8-10.8) X10*3/uL RBC 3.66 L (4.20-5.50) X10*6/uL Hgb 11.7 L (12.0-16.0) g/dl Hct 34.3 L (37.0-47.0) % MCV 93.7 (80.0-98.0) fL MCH 32.0 (27.0-33.0) pg MCHC 34.1 (31.0-35.0) g/dl RDW 12.7 (11.0-16.0) % Plt Count 212 (160-400) X10*3/uL MPV 9.5 (9.4-12.3) fL Immature Gran % (Auto) 0.3 (0.0-0.4) % Neut % (Auto) 37.5 L (45-73) % Lymph % (Auto) 48.3 H (20-40) % Slope % (Auto) 10.5 (2-11) % Eos % (Auto) 2.6 (0-4) % Baso % (Auto) 0.8 (0-2) % Lymph # (Auto) 1.9 (1.2-4.9) X10*3/uL Slope # (Auto) 0.4 (0.1-1.2) X10*3/uL Eos # (Auto) 0.1 (0.0-0.4) X10*3/uL Baso # (Auto) 0.0 (0.0-0.2) X10*3/uL Abs Immat Gran (auto) 0.01 (0.00-0.03) X10*3/uL Absolute Neuts (auto) 1.5 L (2.0-8.3) x10*3/uL Absolute Nucleated RBC 0.000 (0.0-0.012) X10*3/uL Nucleated RBC % (auto) 0.0 (0.0-0.2) /100WBC Sodium 141 (135-145) mmol/L Potassium 4.1 (3.3-5.1) mmol/L Chloride 106 (96-108) mmol/L Carbon Dioxide 31 H (22-29) mmol/L Anion Gap 8 L (12-20) BUN 11 (9-16) mg/dL Creatinine 0.74 (0.5-1.4) mg/dL Estim Creat Clear Calc 70.9 Estimated GFR > 60 Random Glucose 102 (60-115) mg/dL Calcium 9.1 (8.4-10.2) mg/dL Magnesium 2.3 (1.6-2.6) mg/dL Total Bilirubin 0.3 (0.0-1.0) mg/dL AST 21 (5-31) U/L ALT 18 (0-31) U/L Alkaline Phosphatase 76 (39-117) U/L Total Protein 6.8 (6.5-8.0) g/dL Albumin 4.3 (3.5-5.0) g/dL Lipase 41 (8-78) U/L Urine Color Yellow Urine Appearance Clear Urine pH 7.0 (5.0-9.0) Ur Specific [employer] [place] 1.020 (1.005-1.025) Urine Protein Negative (Neg-Trace) mg/dL Urine Glucose (UA) Negative (Negative) mg/dL Urine Ketones Negative (Negative) mg/dL Urine Blood Negative (Negative) Urine Nitrite Negative (Negative) Ur Leukocyte Esterase Negative (Negative) Radiology Impression Discussion of test interpretation with radiology: I have reviewed the radiologist's reading. Radiologist Impression: CT abdomen pelvis w IV con IMPRESSION: 1. A cause for the patient's lower abdominal pain and weight loss has not been found. No occult malignancy is found 2. Incidental note made of cholecystectomy, gastric sleeve and degenerative changes in the spine. Fleischner guidelines were followed. Electronically signed by: Jhonatan Reyna MD 01/20/2024 11:18 PM Chronic Conditions Patient?s care impacted by: Other (Hyperlipidemia, MS) Medications Administered Discontinued Medications Generic Name Dose Route Start Last Admin Trade Name Jostin PRN Reason Stop Dose Admin Barium Sulfate 450 ml 01/20/24 19:36 01/20/24 19:36 Barium Sulfate Oral (Mocha) 450 Ml Oral.Susp PO 01/20/24 19:37 450 ml ONCE ONE Administration Brimonidine Tartrate 1 drop 01/20/24 18:10 01/20/24 20:36 Brimonidine Tartrate 0.2% Oph 5 Ml Bottle EYE-BOTH 01/20/24 18:11 1 drop ONCE ONE Administration Diphenhydramine HCl 50 mg 01/20/24 18:01 01/20/24 18:47 Diphenhydramine Hcl 50 Mg/Ml Vial IVPUSH 01/20/24 18:02 50 mg ONCE STA Administration Sodium Chloride 1,000 mls @ 999 mls/hr 01/20/24 18:00 01/20/24 19:35 Ns IV 01/20/24 19:00 Infused .Q1H1M STA Infusion Sodium Chloride 1,000 mls @ 999 mls/hr 01/20/24 18:04 01/20/24 21:30 Ns IV 01/20/24 19:04 Infused .Q1H1M STA Infusion Iohexol 100 ml 01/20/24 19:35 01/20/24 19:36 Iohexol 350 Mg/Ml 100 Ml Infus..Btl IV 01/20/24 19:36 85 ml ONCE ONE Administration Iohexol 85 ml 01/20/24 20:03 01/20/24 20:04 Iohexol 350 Mg/Ml 100 Ml Infus..Btl IV 01/20/24 20:04 85 ml ONCE ONE Administration Morphine Sulfate 4 mg 01/20/24 18:01 01/20/24 18:42 Morphine Sulfate 4 Mg/Ml Cartridge IVPUSH 01/20/24 18:02 4 mg ONCE STA Administration Protocol Morphine Sulfate 4 mg 01/20/24 20:22 01/20/24 20:28 Morphine Sulfate 4 Mg/Ml Cartridge IVPUSH 01/20/24 20:23 4 mg ONCE STA Administration Protocol Ondansetron HCl 4 mg 01/20/24 18:01 01/20/24 18:42 Ondansetron Hcl 4 Mg/2 Ml Vial IVPUSH 01/20/24 18:02 4 mg ONCE ONE Administration Discharge Plan Discharge Clinical Impression: Abdominal pain, Endometriosis Patient Disposition: Home, Self-Care Additional Instructions: Your blood work revealed a low white blood cell count and anemia but this is unchanged from your previous values. The rest of your blood work was normal. The CT scan of your abdomen pelvis with oral and IV contrast did not reveal a clear cause for your pain. Given your lower abdominal pain, diarrhea and weight loss I want you to follow- up with technology sales representative for re-evaluation. Take Tylenol (acetaminophen) 500 mg pills, 2 pills every 6 hours as needed for pain or fever. Follow-up with your doctor in 2 days. Please return to the emergency department if your symptoms get worse or if you develop any symptoms that are concerning to you. CT abdomen pelvis w IV con IMPRESSION: 1. A cause for the patient's lower abdominal pain and weight loss has not been found. No occult malignancy is found 2. Incidental note made of cholecystectomy, gastric sleeve and degenerative changes in the spine. Fleischner guidelines were followed. Electronically signed by: Jhonatan Reyna MD 01/20/2024 11:18 PM Prescriptions: No Action albuterol sulfate 90 mcg/actuation HFA aerosol inhaler 2 puff inhalation Q4-6H PRN (Reason: shortness of breath or wheezing) Qty: 8.5 6RF fluticasone furoate-vilanterol 100-25 mcg/dose blister with device 1 inh inhalation DAILY Qty: 60 2RF gabapentin [Neurontin] 600 mg tablet 600 mg PO TID 30 Days Qty: 90 8RF oofxqehzam-ntepmprarkbqa-byhn 50-325-40 mg tablet 1 tab PO BID PRN (Reason: pain) Qty: 30 3RF valacyclovir [Valtrex] 1 gram tablet 2,000 mg PO Q12H Qty: 12 1RF quetiapine 100 mg tablet 100 mg PO BEDTIME fluticasone propionate 50 mcg/actuation spray,suspension 1 spray intranasal DAILY PRN (Reason: Allergy Symptoms) Rx Instructions: administer into each nostril divalproex [Depakote ER] 500 mg Tablet Extended Release 24 Hr 500 mg PO BID Qty: 180 0RF clonazepam 1 mg tablet 1 mg PO BID quetiapine 25 mg tablet 25 mg PO BID PRN (Reason: Anxiety) brimonidine 0.2 % drops 1 drp ophthalmic (eye) BID Rx Instructions: Both eyes paroxetine HCl 40 mg tablet 40 mg PO BEDTIME paroxetine HCl 10 mg tablet 10 mg PO BEDTIME methocarbamol 500 mg tablet 500 mg PO TID 30 Days Qty: 90 6RF Interventions: ED Discharge Assessment Last Done: 01/21/24 00:55 Discharge Date/Time: 01/21/24 00:58 Print Language: Divehi
[2024-01-20 12:47] LABS: MANUAL DIFF FLAG NO
[2024-01-20 12:49] LABS: Basophils Percent Auto 0.8 % (0-2); Eosinophils Absolute Auto 0.1 X10*3/uL (0.0-0.4); Eosinophils Percent Auto 2.6 % (0-4); Hematocrit 34.3 % (37.0-47.0); Hemoglobin 11.7 g/dl (12.0-16.0); Imm Gran Abs Auto 0.01 X10*3/uL (0.00-0.03); Imm Gran Pct Auto 0.3 % (0.0-0.4); Lymphocytes Absolute Auto 1.9 X10*3/uL (1.2-4.9); Lymphocytes Percent Auto 48.3 % (20-40); Mean Corpuscular HGB Conc 34.1 g/dl (31.0-35.0); Mean Corpuscular Volume 93.7 fL (80.0-98.0); Mean Platelet Volume 9.5 fL (9.4-12.3); Monocytes Absolute Auto 0.4 X10*3/uL (0.1-1.2); Monocytes Percent Auto 10.5 % (2-11); Neutrophils Absolute Auto 1.5 x10*3/uL (2.0-8.3); Neutrophils Percent Auto 37.5 % (45-73); Platelet Count 212 X10*3/uL (160-400); Red Blood Count 3.66 X10*6/uL (4.20-5.50); Red Cell Distribution Width 12.7 % (11.0-16.0); White Blood Count 3.9 X10*3/uL (4.8-10.8)
[2024-01-20 12:52] LABS: Appearance Urine Clear; Color Urine Yellow; Glucose Urine UA Negative (Negative); Leukocyte Esterase Urine Negative (Negative); Nitrite Urine Negative (Negative); Urine Blood Negative (Negative); Urine Ketones Negative (Negative); Urine Protein Negative (Neg-Trace)
[2024-01-20 13:06] LABS: Alanine Aminotransferase 18 U/L (0-31); Albumin Level 4.3 g/dL (3.5-5.0); Alkaline Phosphatase 76 U/L (39-117); Anion Gap 8 (12-20); Aspartate Amino Transferase 21 U/L (5-31); Bilirubin Total 0.3 mg/dL (0.0-1.0); Blood Urea Nitrogen 11 mg/dL (9-16); Calcium 9.1 mg/dL (8.4-10.2); Carbon Dioxide 31 mmol/L (22-29); Chloride 106 mmol/L (96-108); Creatinine Clr Calc Pharmacy 70.9; Estimated Glomerular Filt Rate > 60; Glucose Random 102 mg/dL (60-115); Magnesium 2.3 mg/dL (1.6-2.6); Potassium 4.1 mmol/L (3.3-5.1); Sodium 141 mmol/L (135-145); Total Protein 6.8 g/dL (6.5-8.0)
[2024-01-20 18:06] LABS: Lipase 41 U/L (8-78)
[2024-01-20] MEDS: 0.9 % Sodium Chloride 1,000 ML 999 ML IV ×2 (18:34→20:29)
[2024-01-20] MEDS: ondansetron HCL 4 MG/2 ML VIAL IVPUSH (18:42)
[2024-01-20] MEDS: Morphine Sulfate 4 MG/ML CARTRIDGE IVPUSH ×2 (18:42→20:28)
[2024-01-20] MEDS: diphenhydrAMINE HCL 50 MG/ML VIAL IVPUSH (18:47)
[2024-01-20] MEDS: Barium Sulfate Oral (Mocha) 450 ML ORAL.SUSP PO (19:36)
[2024-01-20] MEDS: iohexoL 350 MG/ML 100 ML INFUS..BTL IV (19:36)
--- NOTE | 2024-01-20 19:36 | PC.NURSE ---
Patient away for CT scan.
[2024-01-20] MEDS: iohexoL 350 MG/ML 100 ML INFUS..BTL 85 ML IV (20:04)
[2024-01-20] MEDS: Brimonidine Tartrate 0.2% Oph 5 ML BOTTLE 1 DROP EYE-BOTH (20:36)
--- NOTE | 2024-01-20 23:00 | MHC.EDTECH ---
this tech took over care @[id number], at this time when rounding the pt was witnessed to be asleep in the stretcher w/ equal chest rise and unlabored respirations present
[2024-01-21 00:33] VITALS: BP 118/58; PULSE 62; RESP 15; TEMP 36.5; O2SAT 95
--- NOTE | 2024-01-21 00:53 | PC.NURSE ---
Reviewed discharge instructions with pt, pt verbalized understanding, no sign of distress upon discharge, pt ambulated with a steady gait.
[2024-01-21 00:55] VITALS: BP 118/58; PULSE 89; RESP 16; TEMP 36.5; O2SAT 95
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
== END 2024-01-21 00:58 | disposition home or self-care (01) ==
PROVIDERS: Physician Assistant Medical; Emergency Provider Emergency Medicine Emergency Medical Services; PCP Internal Medicine
DX: N80.9 Endometriosis, unspecified (principal); R10.9 Unspecified abdominal pain; M54.50 Low back pain, unspecified; R11.0 Nausea; R19.7 Diarrhea, unspecified; Z79.899 Other long term (current) drug therapy
CPT/HCPCS: 36415; 74177; 80053; 81003; 83690; 83735; 85025; 96361; 96374; 96375; 96376; 99285; J1200; J2270; J2405; Q9967

== ENCOUNTER 2024-01-28 10:30 | Outpatient (AMB) | payer OTHER, SELFPAY ==
--- NOTE | 2024-01-28 11:00 | A.OFFVIS_ITS ---
Vital Signs 01/28/24 11:04 Weight 144 lb BP 115/79 Blood Pressure Location Rt brachial Position Sitting Pulse 73 Pulse Source Pulse Oximeter Pulse Oximetry (%) 96 Oxygen Delivery Method Room Air Intake Visit Reasons: FU for injections/back pain Allergies Iodinated Contrast Media [Iodinated Contrast Media - IV Dye] Allergy (Intermediate, Verified 01/28/24 11:03) HIVES ketorolac [From Toradol] Allergy (Intermediate, Verified 01/28/24 11:03) localized redness/swelling Medication List - Last Reconciled 01/28/24 by Samantha Molina, KEYBOARD INSTRUMENT TUNER albuterol sulfate 90 mcg/actuation 2 puffs inhalation Q4-6H PRN brimonidine 0.2% 1 drp ophthalmic (eye) BID umpmtpigtl-iuywxtrqvoewz-tljw 50-325-40 mg 1 tab PO BID PRN clonazepam 1 mg PO BID divalproex ER (Depakote ER) 500 mg PO BID fluticasone furoate-vilanterol 100-25 mcg/dose 1 inh inhalation DAILY fluticasone propionate 50 mcg/actuation 1 spray intranasal DAILY PRN gabapentin (Neurontin) 600 mg PO TID 30 days methocarbamol 500 mg PO TID 30 days paroxetine HCl 40 mg PO BEDTIME paroxetine HCl 10 mg PO BEDTIME quetiapine 100 mg PO BEDTIME quetiapine 25 mg PO BID PRN valacyclovir (Valtrex) 2,000 mg (2 x 1 gram) PO Q12H HPI Comments Details: Therese's in my office today complaining on pain in the lower back mostly on the right with radiation to the right hip and thigh. She in the past received therapeutic sacroiliac joint injections with great success however her steam generating powerplant mechanic recommended against continuation of steroid injections. Physical examination is as below. Right sacroiliitis symptoms are very prominent. I requested patient to ask her steam generating powerplant mechanic whether we can do short acting steroid such as Decadron to help her pain. Meanwhile we will ask for endorsement of the psychological evaluation from [facility]. She had psychological evaluation in spring therefore it is little bit more than 1 year since the psychological evaluation. After her psychological evaluation will be renewed we will consider trial of stimulation of the right sacroiliac joint innervation. Prior: She is status post caudal BETSEY and right GTB injection on 08/21/22 and Right Therapeutic SIJ injection on 07/24/22 . Caudal BETSEY provided 80% pain relief for radicular back symptoms with improvement in her daily functions and activities. That lasted 3 weeks only. I cannot consider caudal BETSEY repeatin the future for her. Now she is losing eye site on the right eye and her steam generating powerplant mechanic forbade her to have any steroid injections. the therapeutic injections are impossible to treat her pain in the future. MBB resulted in no pain improvement. I think neuromodulation would be very good thing to do for this patient. MBB resulted in no pain improvement. History of axial pain and pain exacerbated with prolonged sitting give the makes me think about vertebrogenic pain. She went for MRI which demonstrated vertebral Modic type changes. However given the choice between spinal cord stimulator and intrathecal pain pump pain relief for this patient which do not require steroid administration and intercept procedure which might require significant doses of steroids I decided to proceed with neuromodulation as Nevro SCS and I DDD [employer]. Nevro SCS was tried on her. She dislodged her electrode due to severe heaving, nausea and vomiting at least 1 full vertebral body down however the top electrode still was positioned at the top of T9 which could potentially give us significant pain relief due to stimulation. However patient denied any help from stimulation. Intrathecal pain pump was discussed in the past with the patient however she is reluctant to go for the procedure. [facility] Medical History (Updated 01/22/24 @ 00:00 by Maxwell Pandey) Seizure disorder Syncope Cervical spondylosis with radiculopathy Cervical radiculopathy Cervical strain Neck pain Seroma due to trauma Hematoma following procedure Calf pain Incisional pain Postoperative bleeding from incision Cellulitis Anemia Anxiety with depression Fatty liver Back pain Arthritis Abscess or cellulitis of knee Skin laxity Hyperlipidemia Neutropenia GERD (gastroesophageal reflux disease) COVID-19 vaccine administered Sacroiliitis Postlaminectomy syndrome Bunion of left foot Postconcussion syndrome Labral tear of right hip joint Spinal stenosis Colon polyps Allergic rhinitis Herpes Chronic sinusitis Depression Migraines Asthma Hypotension Malabsorption due to intolerance, not elsewhere classified Surgical History Hx of spinal fusion S/P plastic surgery S/P panniculectomy History of hip surgery History of endometrial ablation S/P tonsillectomy S/P bilateral foot surgery History of appendectomy H/O colonoscopy H/O endoscopy S/P laparoscopic sleeve gastrectomy H/O laminectomy Family History Father No problems noted. Mother Cervical spine tumor Brother No problems noted. Brother No problems noted. Brother No problems noted. Brother No problems noted. Sister Mental health disorder Son No problems noted. Daughter No problems noted. Social History Household Members: Spouse Housing: House Are you a primary adult care provider to a significant other at home: No Do you presently have visiting nurse or other home services: No Unable to assess alcohol history related to: Unknown Alcohol intake: former Comment: count correct Patient Tobacco Use Status: Never used Tobacco e-Cigarette/Vaping Use: Never Used Second Hand Smoke Exposure: No Substance Use Type: Marijuana Advance Directives Date on File: 10/28/23 service: No Current occupational status: disabled Cognitive needs: No Hearing needs: No Vision needs: No Review of Systems Const All systems reviewed & are unremarkable except as noted in HPI and below ENT Reports Normal hearing present Neuro Reports Normal hearing present and Denies confusion Psych Denies confusion Physical Exam Vital Signs: Last Vital Signs Pulse 73 01/28/24 11:04 BP 115/79 01/28/24 11:04 Pulse Ox 96 01/28/24 11:04 Oxygen Delivery Method Room Air 01/28/24 11:04 Const General: cooperative, alert and awake; No confusion Orientation/consciousness: patient oriented x3 and No confusion Resp Effort & Inspection: able to speak in complete sentences, no audible wheezes and no cough Back/Spine/Pelvis Other: Loading test is positive bilaterally tenderness on palpation on lower lumbar and mid lumbar spine, paraspinal regions are less tender on palpation in the area however also cause significant tenderness. Flexing forward and flexing backwards both aggravate pain with flexing backwards to be more aggravating than flexing forward. Pillo test, Gaenslen test, pelvic compression and pelvic distraction test, 14 finger test are all positive on the right. Neuro General: patient oriented x3 and No confusion Cranial nerves: Yes Normal hearing present Cognition (Neuro): normal cognition Psych Mental Status: mental status grossly normal Speech and movement: Clear speech present Affect: normal affect Attitude: cooperative Thought process: Normal thought process present Thought content: Normal thought content present and No Depressive thoughts present Insight: Good insight present (Psych) Judgement: Good judgement present (Psych) Assessment & Plan Assessment & Plan (1) Trochanteric bursitis of right hip: Code(s): M70.61 - Trochanteric bursitis, right hip Category: Medical (2) Lumbosacral spondylosis with radiculopathy: Code(s): M47.27 - Other spondylosis with radiculopathy, lumbosacral region Category: Medical (3) Right hip pain: Code(s): M25.551 - Pain in right hip Category: Medical (4) Failed back syndrome, lumbar: Code(s): M96.1 - Postlaminectomy syndrome, not elsewhere classified Category: Medical Plan: (5) Chronic pain syndrome: Code(s): G89.4 - Chronic pain syndrome Category: Medical (6) Sacroiliitis: Comment: S/p SI joint steroid injection 08/27/19, 12/08/20, 11/16/21 Code(s): M46.1 - Sacroiliitis, not elsewhere classified Category: Medical (7) Vertebrogenic low back pain: Code(s): M54.51 - Vertebrogenic low back pain Category: Medical (8) Spondylosis of lumbar region without myelopathy or radiculopathy: Code(s): M47.816 - Spondylosis without myelopathy or radiculopathy, lumbar region Category: Medical Plan Patient is status post caudal BETSEY and right GTB injection on 08/21/22 and Right Therapeutic SIJ injection on 07/24/22 . Caudal BETSEY provided 80% pain relief for radicular back symptoms with improvement in her daily functions and activities. That lasted 3 weeks only. Today in my office with severe pain in the projection of the sacroiliac joint in with radiation to the right hip. Physical exam is as above. She tried Nevro SCS in the past it did not alleviate her pain. Her steam generating powerplant mechanic restricting her from receiving steroid injections. I requested her to ask her steam generating powerplant mechanic to allow me to inject short-acting medications such as Decadron. Meanwhile we will endorse her psychological evaluation from [facility]. I am planning to try curonix PNS trial of the right sacroiliac joint innervation. f due to stimulation. However patient denied any help from stimulation. she is reluctant to go for ITDD. Of note in 2 years she is moving to [place] Patient Instructions: I here by testify that I spent minutes in conversation with this patient as well as planning her care and organizing this note. Coding Level of Care Code Est Pt Level 4 (19161) Diagnoses Trochanteric bursitis of right hip M70.61 Lumbosacral spondylosis with radiculopathy M47.27 Right hip pain M25.551 Failed back syndrome, lumbar M96.1 Chronic pain syndrome G89.4 Sacroiliitis M46.1 Vertebrogenic low back pain M54.51 Spondylosis of lumbar region without myelopathy or radiculopathy M47.816
[2024-01-28 11:04] VITALS: BP 115/79; PULSE 73; O2SAT 96
--- OUTSIDE RECORDS SUMMARY | 2024-01-29 00:29 | XMS_ITS | Patient Health Record ---
Author Organization [facility] Address [address] [place] [address] Care Team Providers Care Bus Driver/Monitor Name Role Phone Corinne Figueroa Primary Care [...] Once a day Not-Taking Cholecalciferol Not- Taking Tzthgsqbwp-LNUR-Txukxpex 50-325-40 MG 1 tablet as needed Orally every 4 hrs Active Aspirin 81 MG 1 tablet Orally Once a day Not-Taking Lidocaine 5 % 1 patch remove after 12 hours Externally Active Calcium Citrate + D3 Not-Taking Multivitamin Active Qvar Not-Taking SEROquel XR 200 MG 1 tablet in the evening Orally Once a day 100 MG Active Nasal [place] Active Cyanocobalamin 1000 MCG 1 tablet Orally [...] fixation device, subsequent encounter (T84.84XD) Active confirmed [id number] PLAN OF TREATMENT Pending Test Test Name [...]
--- OUTSIDE RECORDS SUMMARY | 2024-01-29 00:29 | XMS_ITS ---
Author Organization [facility] Address [address] [place] [address] Care Team Providers Care Superintendent Nonselling Name Role Phone Corinne Figueroa Primary Care Provider RAEANN Pool Unavailable [phone] ALLERGIES Allergen (clinical drug ingredient) Drug/Non Drug [...] Once a day 100 MG Active Nasal [place] Active Keppra Active hydrOXYzine HCl 25 MG 1 tablet as needed Orally every 8 hrs for 10 day(s) 12/31/2019 Not-Taking Gabapentin 600 MG 2 tablet Orally thre e times daily Active Percocet 5-325 MG 1 tablet as needed Orally every 6 hrs Not-Taking Zfogqmoqfp-NSEG-Sxzolhrz 50-325-40 MG 1 tablet as needed Orally [...] N/A Encounters Encounter Location Date Provider Diagnosis [facility] [address] [place] [address] 09/13/2022 RAEANN MOTA Capsulitis of metatarsophalangeal (MTP) [...] * Therese PALMADOB: [birth year] (62 yo F)Acc No.[id number]:09/13/2022 Patient:??Therese Palma Provider:??Raeann Mota DPM :1960?Age:62 Y?Sex:Fe male Date:09/13/2022 Address:[address] [facility] [place], [id number] Pcp:Corinne Figueroa Subjective: * Chief Complaints: * [...] Tablet 2 tablet Orally three times daily Reyqlrwyac-YSMK-Iknphoxa 50-325-40 MG Tablet 1 tablet as needed Orally every 4 hrs Multivitamin Lidocaine 5 % Patch 1 patch remove after 12 hours Externally Nasal [place] SEROquel XR 200 MG Tablet Extended Release [...] 2 tablet Orally three times daily Taking Zjmmcbzwbk-PWQE-Oczdbwzo 50-325-40 MG Tablet 1 tablet as needed Orally every 4 hrs Taking Multivitamin Taking Lidocaine 5 % Patch 1 patch remove after 12 hours Externally Taking Nasal [place] Taking SEROquel XR 200 MG Tablet Extended [...] foot) * Procedure Codes:?? DRAI N/INJECT, SMALL JOINT/[id number] INJ TENDON SHEATH/LIGAMENT/[id number] INJ DEXAMETHASONE SODIM PHOSHATE 1 [id number] INJ TRIAMCINOLONE ACETONIDE 10 MG * Follow Up:??prn * Billing Information: * Visit Code:?? * Procedure Codes:?? DRAIN/INJECT, SMALL JOINT/BURSA. 82685 INJ TENDON SHEATH/LIGAMENT/FASCIA. J1100 INJ DEXAMETHASONE SODIM [...]
== END 2024-01-28 11:17 | disposition home or self-care (01) ==
PROVIDERS: PCP Internal Medicine; Visit Provider Anesthesiology
DX: M70.61 Trochanteric bursitis, right hip (principal); M47.27 Other spondylosis with radiculopathy, lumbosacral region; M25.551 Pain in right hip; M96.1 Postlaminectomy syndrome, not elsewhere classified; G89.4 Chronic pain syndrome; M46.1 Sacroiliitis, not elsewhere classified; M54.51 Vertebrogenic low back pain; M47.816 Spondylosis without myelopathy or radiculopathy, lumbar region
CPT/HCPCS: 99214

== ENCOUNTER → 2024-01-28 10:30 | Outpatient (BNVA) | payer OTHER, SELFPAY | PROVIDERS: PCP Internal Medicine; Visit Provider Anesthesiology | DX: M70.61 Trochanteric bursitis, right hip (principal); M47.27 Other spondylosis with radiculopathy, lumbosacral region; M96.1 Postlaminectomy syndrome, not elsewhere classified; G89.4 Chronic pain syndrome; M46.1 Sacroiliitis, not elsewhere classified; M54.51 Vertebrogenic low back pain; M47.816 Spondylosis without myelopathy or radiculopathy, lumbar region | CPT/HCPCS: 99212 ==

== ENCOUNTER 2024-03-09 08:19 | Outpatient (AMB) | payer OTHER, SELFPAY ==
--- NOTE | 2024-03-09 08:26 | MHC.PC.OV ---
Vital Signs 03/09/24 08:28 Height 5 ft 7 in Weight 146 lb BMI 22.9 BP 108/64 Blood Pressure Location Rt brachial Position Sitting Pulse 84 Pulse Source Pulse Oximeter Pulse Oximetry (%) 97 Oxygen Delivery Method Room Air Intake Visit Reasons: Annual PE Intake Note: Pt is here today for PE. Allergies Iodinated Contrast Media [Iodinated Contrast Media - IV Dye] Allergy (Intermediate, Verified 03/09/24 08:29) HIVES ketorolac [From Toradol] Allergy (Intermediate, Verified 03/09/24 08:29) localized redness/swelling Medication List - Last Reconciled 03/09/24 by Corinne Figueroa MD albuterol sulfate 90 mcg/actuation 2 puffs inhalation Q4-6H PRN brimonidine 0.2% 1 drp ophthalmic (eye) BID tokbfbhebh-pjrmvcurqsjvw-uwtw 50-325-40 mg 1 tab PO BID PRN clonazepam 1 mg PO BID divalproex ER (Depakote ER) 500 mg PO BID fluticasone furoate-vilanterol 100-25 mcg/dose 1 inh inhalation DAILY fluticasone propionate 50 mcg/actuation 1 spray intranasal DAILY PRN gabapentin (Neurontin) 600 mg PO TID 30 days methocarbamol 500 mg PO TID 30 days paroxetine HCl 40 mg PO BEDTIME paroxetine HCl 10 mg PO BEDTIME quetiapine 100 mg PO BEDTIME quetiapine 25 mg PO BID PRN valacyclovir (Valtrex) 2,000 mg (2 x 1 gram) PO Q12H Tobacco use date assessed: 03/09/24 Dental Screening Dental Screen Date: 03/09/24 Did you have a dental visit in the last 12 months?: Yes Did you have a dental problem in the last 6 months where you did not have access to dental care?: No Was dental information given to patient?: Patient has dentist HPI Annual PE HPI Details Pt presents for PE. Pt reports chronic diarrhea for 6 months usually has 1 loose bowel movement after drinking coffee in the morning. Patient denies hematochezia melena nausea vomiting abdominal pain. She has been taking probiotics and Citrucel daily. She went to the ER last month and had negative CT of the abdomen and basic blood work. Last colonoscopy was 5 years ago and patient is requesting referral to GI. Chronic anxiety depression are stable on current medications and patient follows up with the Psychiatry Patient has been using Breo on and off for chronic asthma. [facility] Medical History (Updated 03/09/24 @ 09:17 by Corinne Figueroa MD) Seizure disorder Syncope Cervical spondylosis with radiculopathy Cervical radiculopathy Cervical strain Neck pain Hematoma following procedure Calf pain Incisional pain Postoperative bleeding from incision Cellulitis Anemia Anxiety with depression Fatty liver Back pain Arthritis Abscess or cellulitis of knee Skin laxity Hyperlipidemia GERD (gastroesophageal reflux disease) COVID-19 vaccine administered Postlaminectomy syndrome Bunion of left foot Postconcussion syndrome Labral tear of right hip joint Spinal stenosis Colon polyps Allergic rhinitis Herpes Chronic sinusitis Depression Migraines Asthma Hypotension Malabsorption due to intolerance, not elsewhere classified Surgical History Hx of spinal fusion S/P plastic surgery S/P panniculectomy History of hip surgery History of endometrial ablation S/P tonsillectomy S/P bilateral foot surgery History of appendectomy H/O colonoscopy H/O endoscopy S/P laparoscopic sleeve gastrectomy H/O laminectomy Family History Father No problems noted. Mother Cervical spine tumor Brother No problems noted. Brother No problems noted. Brother No problems noted. Brother No problems noted. Sister Mental health disorder Son No problems noted. Daughter No problems noted. Social History Household Members: Spouse Housing: House Are you a primary child care center assistant director to a significant other at home: No Do you presently have visiting nurse or other home services: No Unable to assess alcohol history related to: Unknown Alcohol intake: former Comment: count correct Patient Tobacco Use Status: Never used Tobacco e-Cigarette/Vaping Use: Never Used Second Hand Smoke Exposure: No Substance Use Type: Marijuana Advance Directives Date on File: 10/28/23 service: No Current occupational status: disabled Cognitive needs: No Hearing needs: No Vision needs: No Questionnaire PHQ-9 Over the last 2 weeks, how often have you been bothered by any of the following problems? 1. Little interest or pleasure in doing things: not at all 2. Feeling down, depressed, or hopeless: not at all 3. Trouble falling or staying asleep, or sleeping too much: not at all 4. Feeling tired or having little energy: not at all 5. Poor appetite or overeating: not at all 6. Feeling bad about yourself - or that you are a failure or have let yourself or your family down: not at all 7. Trouble concentrating on things, such as reading the newspaper or watching television: not at all 8. Moving or speaking so slowly that other people could have noticed. Or the opposite - being so fidgety or restless that you have been moving around a lot more than usual: not at all 9. Thoughts that you would be better off or of hurting yourself in some way: not at all Total score: 0 Depression Screening Interpretation: Negative Depression Screening Done: Yes 98238 - PHQ-9 Billing: Yes Source: Developed by Drs. Koko Nunez, Codi Leslie, Mendoza Jack and colleagues, with an educational bronwyn from [employer]. Thrive Questionnaire Date Thrive assessed: 03/09/24 I am a: Patient What is your living situation today?: I have a steady place to live Within the past 12 months, did the food you bought not last and you didn't have the money to get more?: I choose not to answer this question Within the past 12 months, did you worry whether your food would run out before you got money to buy more?: Never true Do you have trouble paying for medicines?: I choose not to answer this question Do you have trouble getting transportation to medical appointments?: No Do you have trouble paying your heating and electricity bill?: No Do you have trouble taking care of your child, family member or friend?: No Do you have trouble with day-to-day activities such as bathing, preparing meals, shopping, managing finances, etc.?: No Are you currently unemployed and looking for a job?: No Are you interested in more education?: No Please select the resources that you would like help with: None Currently or been in a relationship where the following occur: No concerns reported THRIVE Score: 0 AUDIT C Alcohol Use Questionnaire (AUDIT-C) 1. How often do you have a drink containing alcohol?: Never 3. How often do you have six or more drinks on one occasion?: Never Total Score: 0 FERNANDA-7 AMB Questionnaire FERNANDA-7 Date FERNANDA - 7 assessed: 03/09/24 Feeling nervous, anxious, or on edge: 0 = Not at all Not being able to stop or control worryin = Not at all Worrying too much about different things: 0 = Not at all Trouble relaxin = Not at all Being so restless that it is hard to sit still: 0 = Not at all Becoming easily annoyed or irritable: 0 = Not at all Feeling afraid as if something awful might happen: 0 = Not at all Total FERNANDA-7 score (0-4 normal; 5-9 mild; 10-14 moderate; 15-21 severe): 0 Source: Developed by Drs. Koko Nunez, Codi Leslie, Mendoza Jack and colleagues, with an educational bronwyn from [employer]. FERNANDA-7 Assessment Billing FERNANDA-7 Assessment Tool: FERNANDA-7 Assessment 02564 Review of Systems Const All systems reviewed & are unremarkable except as noted in HPI and below Eyes Reports no additional complaints ENT Reports no additional complaints Card Reports no additional complaints Resp Reports no additional complaints GI Reports no additional complaints Reports no additional complaints Physical exam (Primary Care) Vital Signs: Last Vital Signs Pulse 84 03/09/24 08:28 BP 108/64 03/09/24 08:28 Pulse Ox 97 03/09/24 08:28 Oxygen Delivery Method Room Air 03/09/24 08:28 BMI result Body Mass Index 22.9 Tobacco/Smoking Status: Tobacco use Status Tobacco use date assessed 03/09/24 03/09/24 08:34 Patient Tobacco Use Status Never used Tobacco 03/09/24 08:34 e-Cigarette/Vaping Use Never Used 03/09/24 08:28 PHQ-9: PHQ-9 Score PHQ-9: Total score 0 03/09/24 08:34 Depression Screening Interpretation: Negative Thrive Assessment: Date of Thrive Assessment Date Thrive assessed 03/09/24 03/09/24 08:34 Currently or been in a relationship where the following occur: No concerns reported Const General: no acute distress HENMT Head: Yes normal to inspection Ears: hearing grossly normal bilaterally Mouth: Normal oral and palatal mucosa present Throat: Yes posterior oropharynx normal Eyes General: appearance normal, both eyes and all related structures Neck Neck: Yes no lymphadenopathy and Yes supple Resp Effort & Inspection: normal respiratory effort Auscultation: clear to auscultation bilaterally Cardio Rhythm: regular rhythm Heart sounds: S1 normal heart sound present and S2 normal heart sound present GI Inspection: Yes normal to inspection Palpation (GI): Soft to palpation Percussion: Yes normal to percussion Auscultation: normal bowel sounds Coding Level of Care Code Est Pt Prev Care 40-64y(46848) Diagnoses Chronic diarrhea K52.9 Multiple sclerosis G35 Seizures R56.9 Anxiety with depression F41.8 Asthma J45.909 Annual physical exam Z00.00 Additional Codes FERNANDA-7 Assessment Billing - FERNANDA-7 Assessment Tool: FERNANDA-7 Assessment 44772 ([id number]) PHQ-9 - 29476 - PHQ-9 Billing: Yes ([id number]) Assessment & Plan Assessment & Plan (1) Chronic diarrhea: Code(s): K52.9 - Noninfective gastroenteritis and colitis, unspecified Category: Medical Plan: Well-balanced diet avoidance of simple carbohydrates and dairy products discussed with the patient. She will continue probiotics and fiber supplement and will be referred to GI (2) Multiple sclerosis: Comment: In remission follow-up with Neurology Code(s): G35 - Multiple sclerosis Category: Medical Plan: In remission follow-up with Neurology (3) Seizures: Comment: Follow-up with Neurology, controlled Code(s): R56.9 - Unspecified convulsions Category: Medical Plan: Stable on current medications follow-up with Neurology (4) Anxiety with depression: Code(s): F41.8 - Other specified anxiety disorders Category: Medical Plan: Continue current medications follow-up with psychiatry (5) Asthma: Comment: using Breo Ellipta daily. Stable Code(s): J45.909 - Unspecified asthma, uncomplicated Category: Medical Plan: Continue Breo and albuterol as needed (6) Annual physical exam: Code(s): Z00.00 - Encounter for general adult medical examination without abnormal findings Category: Medical Plan: Well-balanced diet regular physical activity discussed with the patient. she is up-to-date with the mammogram and Pap smear by cost estimating manager Orders: Referrals Gastroenterology Referral K52.9 - Noninfective gastroenteritis and colitis, unspecified Medications: New acyclovir 5% 1 appl topical .q 4 hrs 5 grams 4RF Refilled albuterol sulfate 90 mcg/actuation 2 puffs inhalation Q4-6H PRN 8.5 grams 6RF shortness of breath or wheezing fluticasone furoate-vilanterol 100-25 mcg/dose 1 inh inhalation DAILY 60 ea 4RF
[2024-03-09 08:28] VITALS: BP 108/64; PULSE 84; O2SAT 97; BMI 22.9
== END 2024-03-09 09:19 | disposition home or self-care (01) ==
PROVIDERS: PCP Internal Medicine; Visit Provider Internal Medicine
DX: K52.9 Noninfective gastroenteritis and colitis, unspecified (principal); G35 Multiple sclerosis; R56.9 Unspecified convulsions; F41.8 Other specified anxiety disorders; J45.909 Unspecified asthma, uncomplicated; Z00.00 Encounter for general adult medical examination without abnormal findings

== ENCOUNTER → 2024-03-09 08:19 | Outpatient (BNVA) | payer OTHER, SELFPAY | PROVIDERS: PCP Internal Medicine; Visit Provider Internal Medicine | DX: Z00.00 Encounter for general adult medical examination without abnormal findings (principal); K52.9 Noninfective gastroenteritis and colitis, unspecified; G35 Multiple sclerosis; R56.9 Unspecified convulsions; F41.8 Other specified anxiety disorders; J45.909 Unspecified asthma, uncomplicated | CPT/HCPCS: 96127; 99396 ==

== ENCOUNTER 2024-04-20 06:10 | Outpatient (REF) | payer OTHER, SELFPAY ==
--- NOTE | ~2024-04-20 | FL_ITS ---
EXAMINATION: FLUOROSCOPY GUIDANCE FOR NEEDLE PLACEMENT CLINICAL INFORMATION: M53.3 - Sacrococcygeal disorders, not elsewhere classified COMPARISON: None available. TECHNIQUE: Intraoperative fluoroscopy guidance was provided to referring physician during intervention. A single image was obtained. No radiologist present. FINDINGS/ FL/FL guidance in treatment room IMPRESSION: On the single image obtained there is a needle positioned overlying the right SI joint. FLUOROSCOPY TIME: 0.1 minutes DOSE AREA PRODUCT: 0.662 uGy-m2 (microgray-meter squared) Electronically signed by: Lauro Vaughn MD 04/20/2024 10:02 AM [facility]
--- OUTSIDE RECORDS SUMMARY | 2024-04-20 06:13 | XMS_ITS | Encounter Summary ---
Author Organization [facility] Address [address] [place] [address] Care Team Providers Care Line Supply Name Role Phone Luis Enrique Cheek MD Primary Care Provider Corinne De La O MD Primary Care Provider Landen Josue PA-C Unavailable [phone] Reason for Visit * Reason Comments E-prescribe Rx Request Encounter Details Date Type Department Care Team Description 11/13/2017 Refill Adult Medicine [address] [address] Luis Enrique Cheek MD E-prescribe Rx Request Social History Tobacco Use Types Packs/Day Years Used Date Smoking Tobacco: Former Cigarettes 1 10 0 02/17/1982 - 08/02/1998 Smokeless Tobacco: Never Alcohol Use Standard Drinks/Week Comments No 0 (1 standard drink = 0.6 oz pur e alcohol) quit 04/18/87 Sex Assigned at Date Recorded Not on file documented as of this encounter Miscellaneous Notes * Telephone Encounter - Natalya Valentine - 11/13/2017 4:17 PM EDT Patient would like script to be: E-PRESCRIBED/FAXED TO PHARMACY WHEN WAS THE PATIENT'S LAST APPOINTMENT IN ADULT MEDICINE? 03/12/17 WHEN WAS THE LAST TIME THE PATIENT SAW THEIR PCP? Same as above Does patient have an upcoming appointment? No patient states no longer with [employer] (THE MEDICATION REQUESTED IS ON THE MED LIST ABOVE) All of the medications requested were on the CURRENT MEDS list No longer Patient of kassandra Segterra ([employer]) Did you check the Pharmacy information above?: YES Patient wants: 30 -day supply Is this a mail order prescription request ? NO If the refill is from a FAXED refill request what is the RX # listed on the fax? N/A Patients current insurance carrier is: [place] / Plan: MEDICARE-[employer] / Product Type: MEDICARE [id number] documented in this encounter Plan of Treatment Not on file documented as of this encounter Visit Diagnoses Not on filedocumented in this encounter Care Teams Line Supply Relationship Specialty Start Date End Date Luis Enrique Cheek MD PCP - General Internal Medicine 09/19/15 05/20/19 Corinne Figueroa MD PCP - General Internal Medicine 05/21/19 Landen Collado PA-C [address] [place] [address] [place] [address] Specialist Neurosurgery 04/03/21 documented as of this encounter
--- OUTSIDE RECORDS SUMMARY | 2024-04-20 06:13 | XMS_ITS | Encounter Summary ---
Author Organization [facility] Address [address] [place] [address] Care Team Providers Care Production Control Expediter Name Role Phone Luis Enrique Cheek MD Primary Care Provider Corinne De La O MD Primary Care Provider Landen Josue PA-C Unavailable [phone] Reason for Visit * Reason Comments E-prescribe Rx Request Encounter Details Date Type Department Care Team Description 08/11/2016 Refill Adult Medicine [address] [address] Luis Enrique Cheek MD E-prescribe Rx Request Social History Tobacco Use Types Packs/Day Years Used Date Smoking Tobacco: Former Cigarettes 1 10 0 02/17/1982 - 08/02/1998 Smokeless Tobacco: Never Alcohol Use Standard Drinks/Week Comments No 0 (1 standard drink = 0.6 oz pur e alcohol) quit 2000 Sex Assigned at Date Recorded Not on file documented as of this encounter Miscellaneous Notes * Telephone Encounter - Julissa Bethea - 08/12/2016 2:40 PM EDT Patient would like script to be: E-PRESCRIBED/FAXED TO PHARMACY WHEN WAS THE PATIENT'S LAST APPOINTMENT IN ADULT MEDICINE? 05/01/16 WHEN WAS THE LAST TIME THE PATIENT SAW THEIR PCP? 04/05/16 Does patient have an upcoming appointment? Yes 09/03/16 (THE MEDICATION REQUESTED IS ON THE MED LIST ABOVE) All of the medications requested were on the CURRENT MEDS list Did you check the Pharmacy information above?: YES Patient wants: 30 -day supply Is this a mail order prescription request ? NO Patients current insurance carrier is: Payor: [facility] MEDICAID / Plan: [facility] MEDICAID HMO $0 [place] / Product Type: HMO [id number] documented in this encounter Plan of Treatment Not on file documented as of this encounter Visit Diagnoses Not on filedocumented in this encounter Care Teams Production Control Expediter Relationship Specialty Start Date End Date Luis Enrique Cheek MD PCP - General Internal Medicine 09/19/15 05/20/19 Corinne Figueroa MD PCP - General Internal Medicine 05/21/19 Landen Collado PA-C [address] [place] [address] Specialist Neurosurgery 04/03/21 documented as of this encounter
--- OUTSIDE RECORDS SUMMARY | 2024-04-20 06:13 | XMS_ITS | Encounter Summary ---
Author Organization [facility] Address [address] [place] [address] Care Team Providers Care Culinary Intern Name Role Phone Luis Enrique Cheek MD Primary Care Provider Corinne De La O MD Primary Care Provider Landen Josue PA-C Unavailable [phone] Reason for Visit * Reason Onset Date Comments Testing 02/27/2017 Ct Scan Abdomen Encounter Details Date Type Department Care Team Description 02/27/2017 Telephone Adult Medicine B - [place] [address] [place] [address] Luis Enrique Cheek MD Testing (Ct Scan Abdomen) Social History Tobacco Use Types Packs/Day Years Used Date Smoking Tobacco: Former Cigarettes 1 10 0 02/17/1982 - 08/02/1998 Smokeless Tobacco: Never Alcohol Use Standard Drinks/Week Comments No 0 (1 standard drink = 0.6 oz pur e alcohol) quit 2000 Sex Assigned at Date Recorded Not on file documented as of this encounter Miscellaneous Notes * Telephone Encounter - Luis Enrique Cheek - 02/27/2017 8:17 AM EST Ordered as requested. * Telephone Encounter - Jaida Gutierrez - 02/27/2017 8:[address] [place] [id number] [place] Scan of Abd. The Insurance has denied code 91301 but is willing to approve code [id number]. A new order is needed for code [id number] if you are in agreement with this request. Thanks, Jaida Cobb Auth Dept. documented in this encounter Plan of Treatment Not on file documented as of this encounter Visit Diagnoses Diagnosis Right upper quadrant abdominal pain- Primary Abdominal pain, right upper quadrant documented in this encounter Care Teams Culinary Intern Relationship Specialty Start Date End Date Luis Enrique Cheek MD PCP - General Internal Medicine 09/19/15 05/20/19 Corinne Figueroa MD PCP - General Internal Medicine 05/21/19 Landen Collado PA-C [address] [place] [address] Specialist Neurosurgery 04/03/21 documented as of this encounter
--- OUTSIDE RECORDS SUMMARY | 2024-04-20 06:13 | XMS_ITS | Encounter Summary ---
Author Organization [facility] Address [address] [place] [address] Care Team Providers Care Motor Coach Chauffeur Name Role Phone Luis Enrique Cheek MD Primary Care Provider Corinne De La O MD Primary Care Provider Landen Josue PA-C Unavailable [phone] Encounter Details Date Type Department Care Team Description 09/20/2016 Orders Only Medical Records [address] [place] [address] Raeann Mota DPM Social History Tobacco Use Types Packs/Day Years Used Date Smoking Tobacco: Former Cigarettes 1 10 0 02/17/1982 - 08/02/1998 Smokeless Tobacco: Never Alcohol Use Standard Drinks/Week Comments No 0 (1 standard drink = 0.6 oz pur e alcohol) quit 2000 Sex Assigned at Date Recorded Not on file documented as of this encounter Plan of Treatment Not on file documented as of this encounter Procedures Procedure Name Priority Date/Time Associated Diagnosis Comments OUTSIDE PATHOLOGY Routine 09/12/2016 documented in this encounter Results * OUTSIDE PATHOLOGY (09/12/2016) Raeann Mota DPM OUTSIDE LAB documented in this encounter Visit Diagnoses Not on filedocumented in this encounter Care Teams Motor Coach Chauffeur Relationship Specialty Start Date End Date Luis Enrique Cheek MD PCP - General Internal Medicine 09/19/15 05/20/19 Corinne Figueroa MD PCP - General Internal Medicine 05/21/19 Landen Collado PA-C [address] [place] [address] Specialist Neurosurgery 04/03/21 documented as of this encounter
--- OUTSIDE RECORDS SUMMARY | 2024-04-20 06:13 | XMS_ITS | Encounter Summary ---
Author Organization [facility] Address [address] [place] [address] Care Team Providers Care Jewelry Store Manager Name Role Phone Luis Enrique Cheek MD Primary Care Provider Luis Enrique Granados MD Primary Care Provider Luis Enrique Granados MD Primary Care Provider Corinne De La O MD Primary Care Provider Landen Josue PA-C Unavailable [phone] Encounter Details Date Type Department Care Team Description 07/08/2014 Controlled Substance Contract with Plan Medical Records [address] [place] [id number] Abstract, Provider Social History Tobacco Use Types Packs/Day Years Used Date Smoking Tobacco: Former Alcohol Use Standard Drinks/Week Comments Not Asked 0 (1 standard drink = 0.6 oz pur e alcohol) Sex Assigned at Date Recorded Not on file documented as of this encounter Plan of Treatment Not on file documented as of this encounter Visit Diagnoses Not on filedocumented in this encounter Care Teams Jewelry Store Manager Relationship Specialty Start Date End Date Luis Enrique Cheek MD PCP - General Internal Medicine 06/09/14 09/09/15 Luis Enrique Cheek MD PCP - General Internal Medicine 09/10/15 09/18/15 Luis Enrique Cheek MD PCP - General Internal Medicine 09/19/15 05/20/19 Corinne Figueroa MD PCP - General Internal Medicine 05/21/19 Landen Collado PA-C [address] [facility] [address] [place] [address] Specialist Neurosurgery 04/03/21 documented as of this encounter
--- OUTSIDE RECORDS SUMMARY | 2024-04-20 06:13 | XMS_ITS | Encounter Summary ---
Author Organization [facility] Address [address] [place] [address] Care Team Providers Care Sewer Pipe Offbearer Name Role Phone Luis Enrique Cheek MD Primary Care Provider Corinne De La O MD Primary Care Provider Landen Josue PA-C Unavailable [phone] Reason for Visit * Reason Onset Date Comments Provider Call Back 05/25/2018 Encounter Details Date Type Department Care Team Description 05/25/2018 Telephone Physiatry - [address] [address] Jamal Mir DO Provider Call Back Social History Tobacco Use Types Packs/Day Years Used Date Smoking Tobacco: Former Cigarettes 1 10 0 02/17/1982 - 08/02/1998 Smokeless Tobacco: Never Alcohol Use Standard Drinks/Week Comments No 0 (1 standard drink = 0.6 oz pur e alcohol) quit 04/18/87 Sex Assigned at Date Recorded Not on file documented as of this encounter Miscellaneous Notes * Telephone Encounter - Tory Ramsay - 05/26/2018 8:59 AM EDT Called patient back & scheduled a f/u appt with Luis Miguel Cadena. * Telephone Encounter - Aisha Adamson M.A. - 05/25/2018 3:41 PM EDT Please schedule patient for a follow up with Luis Miguel Cadena PA-C * Telephone Encounter - Tory Ramsay - 05/25/2018 3:04 PM EDT Patient stated her injection with Dr. Mir has not helped she is still having back & knee pain. documented in this encounter Plan of Treatment Not on file documented as of this encounter Visit Diagnoses Not on filedocumented in this encounter Care Teams Sewer Pipe Offbearer Relationship Specialty Start Date End Date Luis Enrique Cheek MD PCP - General Internal Medicine 09/19/15 05/20/19 Corinne Figueroa MD PCP - General Internal Medicine 05/21/19 Landen Collado PA-C [address] [place] [address] Specialist Neurosurgery 04/03/21 documented as of this encounter
--- OUTSIDE RECORDS SUMMARY | 2024-04-20 06:13 | XMS_ITS | Encounter Summary ---
Author Organization [facility] Address [address] [place] [address] Care Team Providers Care Security Officer Name Role Phone Luis Enrique Cheek MD Primary Care Provider Luis Enrique Granados MD Primary Care Provider Luis Enrique Granados MD Primary Care Provider Corinne De La O MD Primary Care Provider Landen Josue PA-C Unavailable [phone] Encounter Details Date Type Department Care Team Description 04/12/2015 Refill Adult Medicine [address] [address] Luis Enrique Cheek MD Social History Tobacco Use Types Packs/Day Years Used Date Smoking Tobacco: Former Alcohol Use Standard Drinks/Week Comments Not Asked 0 (1 standard drink = 0.6 oz pur e alcohol) Sex Assigned at Date Recorded Not on file documented as of this encounter Plan of Treatment Not on file documented as of this encounter Visit Diagnoses Not on filedocumented in this encounter Care Teams Security Officer Relationship Specialty Start Date End Date Luis Enrique Cheek MD PCP - General Internal Medicine 06/09/14 09/09/15 Luis Enrique Cheek MD PCP - General Internal Medicine 09/10/15 09/18/15 Luis Enrique Cheek MD PCP - General Internal Medicine 09/19/15 05/20/19 Corinne Figueroa MD PCP - General Internal Medicine 05/21/19 Landen Collado PA-C [address] [place] [address] Specialist Neurosurgery 04/03/21 documented as of this encounter
--- OUTSIDE RECORDS SUMMARY | 2024-04-20 06:13 | XMS_ITS | Encounter Summary ---
Author Organization [facility] Address [address] [place] [address] Care Team Providers Care Art Objects Salesperson Name Role Phone Luis Enrique Cheek MD Primary Care Provider Luis Enrique Granados MD Primary Care Provider Luis Enrique Granados MD Primary Care Provider Corinne De La O MD Primary Care Provider Landen Josue PA-C Unavailable [phone] Encounter Details Date Type Department Care Team Description 05/19/2015 Release of Information Medical Records [address] [place] [id number] Abstract, Provider Social History Tobacco Use Types [...] on filedocumented in this encounter Care Teams Art Objects Salesperson Relationship Specialty Start Date End Date Luis Enrique Cheek MD PCP - General Internal Medicine 06/09/14 09/09/15 Luis Enrique Cheek MD PCP - General Internal Medicine 09/10/15 09/18/15 Luis Enrique Cheek MD PCP - General Internal Medicine 09/19/15 05/20/19 Corinne Figueroa MD PCP - General Internal Medicine 05/21/19 Landen Collado PA-C [address] [facility] [address] [place] [address] Specialist Neurosurgery 04/03/21 documented as of this encounter
--- OUTSIDE RECORDS SUMMARY | 2024-04-20 06:13 | XMS_ITS | Encounter Summary ---
Author Organization [facility] Address [address] [place] [address] Care Team Providers Care Slat Basket Maker Machine Name Role Phone Corinne Figueroa MD Primary Care Provider Landen Josue PA-C Unavailable [phone] Encounter Details Date Type Department Care Team Description 05/04/2021 SCAN [facility] Neurosurgery [place] [address] [phone] Slim Cervantes MD, PHD Social History Tobacco Use Types Packs/Day Years [...] on filedocumented in this encounter Care Teams Slat Basket Maker Machine Relationship Specialty Start Date End Date Corinne Figueroa MD PCP - General Internal Medicine 05/21/19 Landen Collado PA-C [address] [address] Specialist Neurosurgery 04/03/21 documented as of this encounter
--- OUTSIDE RECORDS SUMMARY | 2024-04-20 06:13 | XMS_ITS | Encounter Summary ---
Author Organization [facility] Address [address] [place] [address] Care Team Providers Care Dental Assistant Teacher Name Role Phone Luis Enrique Cheek MD Primary Care Provider Corinne De La O MD Primary Care Provider Landen Josue PA-C Unavailable [phone] Reason for Visit * Reason Comments E-prescribe Rx Request Encounter Details Date Type Department Care Team Description 01/24/2017 Refill Adult Medicine [address] [address] Luis Enrique Cheek MD E-prescribe Rx Request [...] encounter Miscellaneous Notes * Telephone Encounter - Joann Fierro - 01/24/2017 1:58 PM EST Patient would like script to be: E-PRESCRIBED/FAXED TO PHARMACY WHEN WAS THE PATIENT'S LAST APPOINTMENT IN ADULT MEDICINE? 11/08/2016 WHEN WAS THE LAST TIME THE PATIENT SAW THEIR PCP? Same as above Does patient have an upcoming appointment? Yes 03/12/2017 (THE MEDICATION REQUESTED IS ON THE MED LIST ABOVE) All of the medications requested were on the CURRENT MEDS list Did you check the Pharmacy information above?: YES Patient wants: 30 -day supply Is this a mail order prescription request ? NO Patients current insurance carrier is: Payor: [facility] MEDICAID / Plan: [facility] MEDICAID HMO $0 [place] / Product Type: HMO [id number] documented in this encounter Plan of Treatment Not on file documented as of this encounter Visit Diagnoses Not on filedocumented in this encounter Care Teams Dental Assistant Teacher Relationship Specialty Start Date End Date Luis Enrique Cheek MD PCP - General Internal Medicine 09/19/15 05/20/19 Corinne Figueroa MD PCP - General Internal Medicine 05/21/19 Landen Collado PA-C [address] [place] [address] Specialist Neurosurgery 04/03/21 documented as of this encounter
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
--- OUTSIDE RECORDS SUMMARY | 2024-04-20 06:13 | XMS_ITS | Encounter Summary ---
Author Organization [facility] Address [address] [place] [address] Care Team Providers Care Transportation Maintenance Supervisor Name Role Phone Luis Enrique Cheek MD Primary Care Provider Corinne De La O MD Primary Care Provider Landen Josue PA-C Unavailable [phone] Encounter Details Date Type Department Care Team Description 11/01/2016 [facility] Medical Records [address] [place] [address] Deacon Ana Social History Tobacco Use Types Packs/Day Years [...] on filedocumented in this encounter Care Teams Transportation Maintenance Supervisor Relationship Specialty Start Date End Date Luis Enrique Cheek MD PCP - General Internal Medicine 09/19/15 05/20/19 Corinne Figueroa MD PCP - General Internal Medicine 05/21/19 Landen Collado PA-C [address] [facility] [address] [place] [address] Specialist Neurosurgery 04/03/21 documented as of this encounter
--- OUTSIDE RECORDS SUMMARY | 2024-04-20 06:13 | XMS_ITS | Encounter Summary ---
Author Organization [facility] Address [address] [place] [address] Care Team Providers Care Pump Tender Name Role Phone Luis Enrique Cheek MD Primary Care Provider Corinne De La O MD Primary Care Provider Landen Josue PA-C Unavailable [phone] Encounter Details Date Type Department Care Team Description 05/02/2016 [facility] Medical Records [address] [place] [address] Abstract, Provider Social History Tobacco Use Types [...] on filedocumented in this encounter Care Teams Pump Tender Relationship Specialty Start Date End Date Luis Enrique Cheek MD PCP - General Internal Medicine 09/19/15 05/20/19 Corinne Figueroa MD PCP - General Internal Medicine 05/21/19 Landen Collado PA-C [address] [facility] [address] [place] [address] Specialist Neurosurgery 04/03/21 documented as of this encounter
--- OUTSIDE RECORDS SUMMARY | 2024-04-20 06:13 | XMS_ITS | Encounter Summary ---
Author Organization [facility] Address [address] [place] [address] Care Team Providers Care Butter Printer Name Role Phone Luis Enrique Cheek MD Primary Care Provider Corinne De La O MD Primary Care Provider Landen Josue PA-C Unavailable [phone] Reason for Visit * Reason Onset Date Comments Provider Call Back 12/04/2016 injection 12/04/2016 Encounter Details Date Type Department Care Team Description 12/04/2016 Telephone Adult Medicine [address] [address] Luis Enrique Cheek MD Provider Call Back; injection Social History Tobacco Use Types Packs/Day Years Used Date Smoking Tobacco: Former Cigarettes 1 10 0 02/17/1982 - 08/02/1998 Smokeless Tobacco: Never Alcohol Use Standard Drinks/Week Comments No 0 (1 standard drink = 0.6 oz pur e alcohol) quit 2000 Sex Assigned at Date Recorded Not on file documented as of this encounter Miscellaneous Notes * Telephone Encounter - Luis Enrique Cheek - 12/04/2016 4:13 PM EDT Naproxen and robaxin sent to pharmacy * Telephone Encounter - Natalya Jose R.N. - 12/04/2016 4:10 PM EDT Pt states she would like naproxen and robaxin called into [facility] [place]. She will notify office if no improvement or if condition worsens. * Telephone Encounter - Luis Enrique Cheek - 12/04/2016 3:49 PM EDT She is in violation of contract and I canot prescribe any narcotics. She will need to use naproxen for pain and can send them to pharmacy if needed * Telephone Encounter - Natalya Jose R.N. - 12/04/2016 3:39 PM EDT Pt notes first injection to right hip today at Dr. Mir's office causing worsening hip and groin pain; pain described as so bad pt is unable to bear wt on right side; pt states she has frequent falls at home noting she fell out of bathtub onto her hands this am before office visit; denies injury;pt requesting refill of methocarbamol; fioricet, and a 1-3 percocet or vicodin Please review and advise. * Telephone Encounter - Veronique Chaudhari - 12/04/2016 2:19 PM EDT Patient is stating that physiatry told her that is out of the office for the afternoon. Patient was advised to call adult medicine patient would like a call back at [phone] * Telephone Encounter - Renetta Tolentino L.P.N. - 12/04/2016 2:10 PM EDT Called patient And she states that after her injection And the novacaine wore off She has a lot of pain in the area of the injection ,no redness or heat in area ,she has been using ice to the area,pain is worse when she lays down she is asking if she can get some pain medication Sometimes they willgive her oxycodone or vicodin For her pain Explained to her that Dr Mir is not in the office this afternoon ,i can send him a message for tomorrow am ,she does understand this After Getting injection and the novacaine wears off the discomfort can be increased for the next few days,she can use ice to area 20 min on -1/2 hour off Can use otc ibu,tylenol,naproxen as directed on bottle I asked her if she has any fioricet that she has prescribed And she states that she does not ,she sent a message to Dr Cheek To see if she can refill this for her And she has not heard a reply for this Refill request Explained that I will send this message to Dr Cheek and Dr Mir * Telephone Encounter - Rocio Solis L.P.N. - 12/04/2016 2:07 PM EDT Re-routing to physiatry * Telephone Encounter - Swati Avila - 12/04/2016 1:22 PM EDT Caller requesting call back from provider: .Luis Enrique Cheek Is the caller the patient? YES If caller is not the patient, what is the callers name? N/A Callers relationship to patient? N/A If person calling is not the patient themselves, is there a verbal release in FYI or permanent comments for this person: YES Reason for call back: Patient came in this morning and got an injection on her hip by Dr. Mir. Patient is still in a lot of pain and asking if she could take anything for it. Caller offered to speak with the nurse for assistance: YES Response: Patient offered to speak with nurse for assistance and patient agreed. Message forwarded to nurse. documented in this encounter Plan of Treatment Not on file documented as of this encounter Visit Diagnoses Not on filedocumented in this encounter Care Teams Butter Printer Relationship Specialty Start Date End Date Luis Enrique Cheek MD PCP - General Internal Medicine 09/19/15 05/20/19 Corinne Figueroa MD PCP - General Internal Medicine 05/21/19 Landen Collado PA-C [address] [place] [address] Specialist Neurosurgery 04/03/21 documented as of this encounter
--- OUTSIDE RECORDS SUMMARY | 2024-04-20 06:13 | XMS_ITS | Encounter Summary ---
Author Organization [facility] Address [address] [place] [address] Care Team Providers Care Kids Activities Coach Name Role Phone Luis Enrique Cheek MD Primary Care Provider Corinne De La O MD Primary Care Provider Landen oJsue PA-C Unavailable [phone] Reason for Visit * Reason Comments E-prescribe Rx Request Encounter Details Date Type Department Care Team Description 05/12/2017 Refill Adult Medicine [address] [address] Hilda Burger APRN E-prescribe Rx Request Social History Tobacco Use Types Packs/Day Years Used Date Smoking Tobacco: Former Cigarettes 1 10 0 02/17/1982 - 08/02/1998 Smokeless Tobacco: Never Alcohol Use Standard Drinks/Week Comments No 0 (1 standard drink = 0.6 oz pur e alcohol) quit 2000 Sex Assigned at Date Recorded Not on file documented as of this encounter Miscellaneous Notes * Telephone Encounter - Ilda Bennett M.A. - 05/12/2017 4:42 PM EDT 04/23/17 last refill * Telephone Encounter - Emily Hardik - 05/12/2017 4:22 PM EDT Patient would like script to be: E-PRESCRIBED/FAXED TO PHARMACY WHEN WAS THE PATIENT'S LAST APPOINTMENT IN ADULT MEDICINE? 03/12/17 WHEN WAS THE LAST TIME THE PATIENT SAW THEIR PCP? Same as above Does patient have an upcoming appointment? No-[facility] due to refill request. Appt due (THE MEDICATION REQUESTED IS ON THE MED LIST ABOVE) All of the medications requested were on the CURRENT MEDS list Did you check the Pharmacy information above?: YES Patient wants: 30 -day supply Is this a mail order prescription request ? NO Patients current insurance carrier is: Payor: [employer] FFS / Plan: [employer] / Product Type: MEDICAID RISK documented in this encounter Plan of Treatment Not on file documented as of this encounter Visit Diagnoses Not on filedocumented in this encounter Care Teams Kids Activities Coach Relationship Specialty Start Date End Date Luis Enrique Cheek MD PCP - General Internal Medicine 09/19/15 05/20/19 Corinne Figueroa MD PCP - General Internal Medicine 05/21/19 Landen Collado PA-C [address] [place] [address] [place] [address] Specialist Neurosurgery 04/03/21 documented as of this encounter
--- OUTSIDE RECORDS SUMMARY | 2024-04-20 06:13 | XMS_ITS | Encounter Summary ---
Author Organization [facility] Address [address] [place] [address] Care Team Providers Care Reel Man Name Role Phone Corinne Figueroa MD Primary Care Provider Landen Josue PA-C Unavailable [phone] Encounter Details Date Type Department Care Team Description 04/19/2020 Student Services Vice President Report Medical Records [address] [place] [id number] [place] [address] Social History Tobacco Use Types Packs/Day Years [...] on filedocumented in this encounter Care Teams Reel Man Relationship Specialty Start Date End Date Corinne Figueroa MD PCP - General Internal Medicine 05/21/19 Landen Collado PA-C [address] [facility] [address] [place] [address] Specialist Neurosurgery 04/03/21 documented as of this encounter
--- OUTSIDE RECORDS SUMMARY | 2024-04-20 06:13 | XMS_ITS | Encounter Summary ---
Author Organization [facility] Address [address] [place] [address] Care Team Providers Care Assistant Floor Covering Printer Name Role Phone Luis Enrique Cheek MD Primary Care Provider Luis Enrique Granados MD Primary Care Provider Luis Enrique Granados MD Primary Care Provider Corinne De La O MD Primary Care Provider Landen Josue PA-C Unavailable [phone] Encounter Details Date Type Department Care Team Description 01/23/2015 [facility] Medical Records [address] [place] [address] Pradeep Hennessy MD Social History Tobacco Use Types Packs/Day [...] on filedocumented in this encounter Care Teams Assistant Floor Covering Printer Relationship Specialty Start Date End Date Luis nErique Cheek MD PCP - General Internal Medicine 06/09/14 09/09/15 Luis Enrique Cheek MD PCP - General Internal Medicine 09/10/15 09/18/15 Luis Enrique Cheek MD PCP - General Internal Medicine 09/19/15 05/20/19 Corinne Figueroa MD PCP - General Internal Medicine 05/21/19 Landen Collado PA-C [address] [facility] [address] [place] [address] Specialist Neurosurgery 04/03/21 documented as of this encounter
--- OUTSIDE RECORDS SUMMARY | 2024-04-20 06:13 | XMS_ITS | Encounter Summary ---
Author Organization [facility] Address [address] [place] [address] Care Team Providers Care Learning Support Aide Name Role Phone Luis Enrique Cheek MD Primary Care Provider Corinne De La O MD Primary Care Provider Landen Josue PA-C Unavailable [phone] Encounter Details Date Type Department Care Team Description 09/20/2015 [facility] Medical Records [address] [place] [address] Abstract, Provider Social History Tobacco Use Types [...] on filedocumented in this encounter Care Teams Learning Support Aide Relationship Specialty Start Date End Date Luis Enrique Cheek MD PCP - General Internal Medicine 09/19/15 05/20/19 Corinne Figueroa MD PCP - General Internal Medicine 05/21/19 Landen Collado PA-C [address] [facility] [address] [place] [address] Specialist Neurosurgery 04/03/21 documented as of this encounter
--- OUTSIDE RECORDS SUMMARY | 2024-04-20 06:13 | XMS_ITS | Encounter Summary ---
Author Organization [facility] Address [address] [place] [address] Care Team Providers Care Gun Barrel Finisher Name Role Phone Luis Enrique Cheek MD Primary Care Provider Corinne De La O MD Primary Care Provider Landen Josue PA-C Unavailable [phone] Reason for Visit * Reason Onset Date Comments APPOINTMENT 05/01/2016 cancellation lis t Encounter Details Date Type Department Care Team Description 05/01/2016 Telephone Podiatry - [address] [address] Raeann Mota DPM APPOINTMENT (cancellation list) Social History Tobacco Use Types Packs/Day Years Used Date Smoking Tobacco: Former Cigarettes 1 10 0 02/17/1982 - 08/02/1998 Smokeless Tobacco: Never Alcohol Use Standard Drinks/Week Comments No 0 (1 standard drink = 0.6 oz pur e alcohol) quit 2000 Sex Assigned at Date Recorded Not on file documented as of this encounter Miscellaneous Notes * Telephone Encounter - Raeann Mota DPM - 05/08/2016 6:43 AM EDT Appointment made * Telephone Encounter - Raeann Mota DPM - 2016 1:48 PM EDT Can you call the patient and offer her one of the cancellation openings for tomorrow 05/08/2016? Thank you * Telephone Encounter - Una Jann - 05/01/2016 9:28 AM EDT Patient has a fu with Dr Mota scheduled for 07/26/16, she is looking to move it up sooner becausethe growth on her foot came back, she cannot come in tomorrow but can come in this Friday if we getany cancellations, please keep her on the cancellation list. documented in this encounter Plan of Treatment Not on file documented as of this encounter Visit Diagnoses Not on filedocumented in this encounter Care Teams Gun Barrel Finisher Relationship Specialty Start Date End Date Luis Enrique Cheek MD PCP - General Internal Medicine 09/19/15 05/20/19 Corinne Figueroa MD PCP - General Internal Medicine 05/21/19 Landen Collado PA-C [address] [place] [address] Specialist Neurosurgery 04/03/21 documented as of this encounter
--- OUTSIDE RECORDS SUMMARY | 2024-04-20 06:13 | XMS_ITS | Encounter Summary ---
Author Organization [facility] Address [address] [place] [address] Care Team Providers Care Laboratory Helper Name Role Phone Luis Enrique Cheek MD Primary Care Provider Corinne De La O MD Primary Care Provider Landen Josue PA-C Unavailable [phone] Encounter Details Date Type Department Care Team Description 05/12/2018 [facility] Medical Records [address] [place] [address] Jamal Mir DO Social History Tobacco Use Types Packs/Day Years [...] on filedocumented in this encounter Care Teams Laboratory Helper Relationship Specialty Start Date End Date Luis Enrique Cheek MD PCP - General Internal Medicine 09/19/15 05/20/19 Corinne Figueroa MD PCP - General Internal Medicine 05/21/19 Landen Collado PA-C [address] [facility] [address] [place] [address] Specialist Neurosurgery 04/03/21 documented as of this encounter
--- OUTSIDE RECORDS SUMMARY | 2024-04-20 06:13 | XMS_ITS | Encounter Summary ---
Author Organization [facility] Address [address] [place] [address] Care Team Providers Care User Support Analyst Supervisor Name Role Phone Luis Enrique Cheek MD Primary Care Provider Corinne De La O MD Primary Care Provider Landen Josue PA-C Unavailable [phone] Encounter Details Date Type Department Care Team Description 03/17/2016 [facility] Medical Records [address] [place] [address] Foreign Garcia Social History Tobacco Use Types Packs/Day Years [...] on filedocumented in this encounter Care Teams User Support Analyst Supervisor Relationship Specialty Start Date End Date Luis Enrique Cheek MD PCP - General Internal Medicine 09/19/15 05/20/19 Corinne Figueroa MD PCP - General Internal Medicine 05/21/19 Landen Collado PA-C [address] [facility] [address] [place] [address] Specialist Neurosurgery 04/03/21 documented as of this encounter
--- OUTSIDE RECORDS SUMMARY | 2024-04-20 06:13 | XMS_ITS | Encounter Summary ---
Author Organization [facility] Address [address] [place] [address] Care Team Providers Care Textile Technologist Name Role Phone Corinne Figueroa MD Primary Care Provider Landen Josue PA-C Unavailable Encounter Details Date Type Department Care Team Description 05/15/2021 [facility] Medical [facility] Neurosurgery [place] [address] [phone] Ana Dillon PA-C [address] [address] Social History Tobacco Use Types Packs/Day Years [...] on filedocumented in this encounter Care Teams Textile Technologist Relationship Specialty Start Date End Date Corinne Figueroa MD PCP - General Internal Medicine 05/21/19 Landen Collado PA-C [address] [address] Specialist Neurosurgery 04/03/21 documented as of this encounter
--- OUTSIDE RECORDS SUMMARY | 2024-04-20 06:13 | XMS_ITS | Encounter Summary ---
Author Organization [facility] Address [address] [place] [address] Care Team Providers Care Road Freight Conductor Name Role Phone Luis Enrique Cheek MD Primary Care Provider Corinne De La O MD Primary Care Provider Landen Josue PA-C Unavailable [phone] Reason for Visit * Reason Comments E-prescribe Rx Request Encounter Details Date Type Department Care Team Description 03/08/2018 Refill Physiatry - [place] [address] [place] [address] Jamal Mir DO E-prescribe Rx Request Social History Tobacco Use Types Packs/Day Years Used Date Smoking Tobacco: Former Cigarettes 1 10 0 02/17/1982 - 08/02/1998 Smokeless Tobacco: Never Alcohol Use Standard Drinks/Week Comments No 0 (1 standard drink = 0.6 oz pur e alcohol) quit 04/18/87 Sex Assigned at Date Recorded Not on file documented as of this encounter Miscellaneous Notes * Telephone Encounter - Renetta Tolentino L.P.N. - 03/09/2018 8:05 AM EST Last refill 01/19/18 Last visit 11/14/17 Next visit not booked documented in this encounter Plan of Treatment Not on file documented as of this encounter Visit Diagnoses Diagnosis Spinal stenosis of lumbar region with neurogenic claudication Spinal stenosis, lumbar region, with neurogenic claudication Lumbar radiculitis Thoracic or lumbosacral neuritis or radiculitis, unspecified Osteoarthritis of spine with radiculopathy, lumbar region Muscle cramps Cramp of limb documented in this encounter Care Teams Road Freight Conductor Relationship Specialty Start Date End Date Luis Enrique Cheek MD PCP - General Internal Medicine 09/19/15 05/20/19 Corinne Figueroa MD PCP - General Internal Medicine 05/21/19 Landen Collado PA-C [address] [place] [address] Specialist Neurosurgery 04/03/21 documented as of this encounter
--- OUTSIDE RECORDS SUMMARY | 2024-04-20 06:13 | XMS_ITS | Encounter Summary ---
Author Organization [facility] Address [address] [place] [address] Care Team Providers Care Nurse Leader Name Role Phone Luis Enrique Cheek MD Primary Care Provider Luis Enrique Granados MD Primary Care Provider Luis Enrique Granados MD Primary Care Provider Corinne De La O MD Primary Care Provider Landen Josue PA-C Unavailable Encounter Details Date Type Department Care Team Description 08/30/2015 Transfer Records Medical Records [address] [place] [id number] Abstract, Provider Social History Tobacco Use Types Packs/Day Years Used Date Smoking Tobacco: Former Cigarettes 1 10 Q uit: 08/02/1998 Smokeless Tobacco: Never Alcohol Use Standard Drinks/Week Comments No 0 (1 standard drink = 0.6 oz pur e alcohol) none in 15 years Sex Assigned at Date Recorded Not on file documented as of this encounter Nursing Notes * 08/30/2015 12:00 PM EDT >> RANDEE SMITH FriAug 30, 2015 9:37 AM Transfer records received from [facility] sent to Dr.Barbara Alvarez/[facility] dept forabstracting. documented in this encounter Plan of Treatment Not on file documented as of this encounter Visit Diagnoses Not on filedocumented in this encounter Care Teams Nurse Leader Relationship Specialty Start Date End Date Luis Enrique Cheek MD PCP - General Internal Medicine 06/09/14 09/09/15 Luis Enrique Cheek MD PCP - General Internal Medicine 09/10/15 09/18/15 Luis Enrique Cheek MD PCP - General Internal Medicine 09/19/15 05/20/19 Corinne Figueroa MD PCP - General Internal Medicine 05/21/19 Landen Collado PA-C [address] [place] [address] Specialist Neurosurgery 04/03/21 documented as of this encounter
--- OUTSIDE RECORDS SUMMARY | 2024-04-20 06:13 | XMS_ITS | Encounter Summary ---
Author Organization [facility] Address [address] [place] [address] Care Team Providers Care Enterprise Services Manager Name Role Phone Luis Enrique Cheek MD Primary Care Provider Luis Enrique Granados MD Primary Care Provider Luis Enrique Granados MD Primary Care Provider Corinne De La O MD Primary Care Provider Landen Josue PA-C Unavailable [phone] Encounter Details Date Type Department Care Team Description 05/22/2015 Engineering Production Liaison Report Medical Records [address] [place] [address] Koko Avery Social History Tobacco Use Types Packs/Day Years Used Date Smoking Tobacco: Former Alcohol Use Standard Drinks/Week Comments Not Asked 0 (1 standard drink = 0.6 oz pur e alcohol) Sex Assigned at Date Recorded Not on file documented as of this encounter Plan of Treatment Not on file documented as of this encounter Visit Diagnoses Not on filedocumented in this encounter Care Teams Enterprise Services Manager Relationship Specialty Start Date End Date Luis Enrique Cheek MD PCP - General Internal Medicine 06/09/14 09/09/15 Luis Enrique Cheek MD PCP - General Internal Medicine 09/10/15 09/18/15 Luis Enrique Cheek MD PCP - General Internal Medicine 09/19/15 05/20/19 Corinne Figueroa MD PCP - General Internal Medicine 05/21/19 Landen Collado PA-C [address] [facility] [address] [place] [address] Specialist Neurosurgery 04/03/21 documented as of this encounter
--- OUTSIDE RECORDS SUMMARY | 2024-04-20 06:13 | XMS_ITS | Encounter Summary ---
Author Organization [facility] Address [address] [place] [address] Care Team Providers Care Christian Science Healer Name Role Phone Luis Enrique Cheek MD Primary Care Provider Corinne De La O MD Primary Care Provider Landen Josue PA-C Unavailable [phone] Encounter Details Date Type Department Care Team Description 05/08/2017 Social Media Intern Report Medical Records [address] [place] [address] Mika Villanueva MD Social History Tobacco Use Types Packs/Day [...] on filedocumented in this encounter Care Teams Christian Science Healer Relationship Specialty Start Date End Date Luis Enrique Cheek MD PCP - General Internal Medicine 09/19/15 05/20/19 Corinne Figueroa MD PCP - General Internal Medicine 05/21/19 Landen Collado PA-C [address] [facility] [address] [place] [address] Specialist Neurosurgery 04/03/21 documented as of this encounter
--- OUTSIDE RECORDS SUMMARY | 2024-04-20 06:13 | XMS_ITS | Encounter Summary ---
Author Organization [facility] Address [address] [place] [address] Care Team Providers Care Director Radio News Name Role Phone Luis Enrique Cheek MD Primary Care Provider Corinne De La O MD Primary Care Provider Landen Josue PA-C Unavailable [phone] Encounter Details Date Type Department Care Team Description 03/21/2017 Release of Information Medical Records [address] [place] [id number] Abstract, Provider Social History Tobacco Use Types [...] on filedocumented in this encounter Care Teams Director Radio News Relationship Specialty Start Date End Date Luis Enrique Cheek MD PCP - General Internal Medicine 09/19/15 05/20/19 Corinne Figueroa MD PCP - General Internal Medicine 05/21/19 Landen Collado PA-C [address] [facility] [address] [place] [address] Specialist Neurosurgery 04/03/21 documented as of this encounter
--- OUTSIDE RECORDS SUMMARY | 2024-04-20 06:13 | XMS_ITS | Encounter Summary ---
Author Organization [facility] Address [address] [place] [address] Care Team Providers Care Other Sports Coach Or Instructor Name Role Phone Luis Enrique Cheek MD Primary Care Provider Corinne De La O MD Primary Care Provider Landen Josue PA-C Unavailable [phone] Encounter Details Date Type Department Care Team Description 05/12/2018 [facility] Medical Records [address] [place] [address] Jamal Mir DO Social History Tobacco Use [...] on filedocumented in this encounter Care Teams Other Sports Coach Or Instructor Relationship Specialty Start Date End Date Luis Enrique Cheek MD PCP - General Internal Medicine 09/19/15 05/20/19 Corinne Figueroa MD PCP - General Internal Medicine 05/21/19 Landen Collado PA-C [address] [facility] [address] [place] [address] Specialist Neurosurgery 04/03/21 documented as of this encounter
--- OUTSIDE RECORDS SUMMARY | 2024-04-20 06:13 | XMS_ITS | Encounter Summary ---
Author Organization [facility] Address [address] [place] [address] Care Team Providers Care Criminal Justice Department Chair Name Role Phone Luis Enrique Cheek MD Primary Care Provider Corinne De La O MD Primary Care Provider Landen Josue PA-C Unavailable [phone] Reason for Visit * Reason Onset Date Comments refill request 04/15/2016 Encounter Details Date Type Department Care Team Description 04/15/2016 Refill Adult Medicine [address] [address] Luis Enrique Cheek MD refill request Social History Tobacco Use Types Packs/Day Years Used Date Smoking Tobacco: Former Cigarettes 1 10 0 02/17/1982 - 08/02/1998 Smokeless Tobacco: Never Alcohol Use Standard Drinks/Week Comments No 0 (1 standard drink = 0.6 oz pur e alcohol) quit 2000 Sex Assigned at Date Recorded Not on file documented as of this encounter Miscellaneous Notes * Telephone Encounter - Natalya Valentine - 04/15/2016 11:32 AM EST Pt will have pharmacy fax over meds name documented in this encounter Plan of Treatment Not on file documented as of this encounter Visit Diagnoses Not on filedocumented in this encounter Care Teams Criminal Justice Department Chair Relationship Specialty Start Date End Date Luis Enrique Cheek MD PCP - General Internal Medicine 09/19/15 05/20/19 Corinne Figueroa MD PCP - General Internal Medicine 05/21/19 Landen Collado PA-C [address] [place] [address] Specialist Neurosurgery 04/03/21 documented as of this encounter
--- OUTSIDE RECORDS SUMMARY | 2024-04-20 06:13 | XMS_ITS | Patient Health Record ---
Author Organization [facility] Address [address] [facility] [address] [place] [address] Care Team Providers Care Ict Support Engineer Name Role Phone Corinne Figueroa Primary Care Provider Unavailabl e Allergies Allergen (clinical drug ingredient) Drug/Non Drug Allergy documented on EMR Reaction Allergy Type Onset Date Status iv contrast dye (uncoded) Unknown Allergy Active ketorolac toradol (uncoded) Unknown Allergy Ac tive Reason For Referral No Information Medications Medication SIG (Take, Route, Frequency, Duration) Notes Start Date End Date Status Meloxicam 7.5 MG 1 tablet Orally Once a day Not-Taking Cholecalciferol Not- Taking Sjpsywcdrr-BWUQ-Tayfkvbk 50-325-40 MG 1 tablet as needed Orally every 4 hrs Active Aspirin 81 MG 1 tablet Orally Once a day Not-Taking Lidocaine 5 % 1 patch remove after 12 hours Externally Active Calcium Citrate + D3 Not-Taking Multivitamin Active Qvar Not-Taking SEROquel XR 200 MG 1 tablet in the evening Orally Once a day 100 MG Active Nasal Triangle Active Cyanocobalamin 1000 MCG 1 tablet Orally [...] 1 tablet Orally 2 times daily Active Problems Problem Type SNOMED Code ICD Code Onset Dates Problem Status W/U Status Risk Notes Problem [id number] Pain due to bone fixation device, subsequent encounter (T84.84XD) Active confirmed Plan Of Treatment Pending Test Test Name Order Date X [...] 06/02/19 21 DRAIN/INJECT, SMALL JOINT/BURSA 07/22/19 21 Medications Administered Medication Instructions Date of Administration Dosage Notes Dexamethasone 12/10/2019 0.5 mL Dexamethasone 03/08/2020 0.5 mL Dexamethasone 06/01/2020 0.5 mL Dexamethasone 07/21/2020 0.5 mL Dexamethasone 10/12/2020 0.5 mL Dexamethasone 11/09/2021 0.5 mL Dexamethasone 09/13/2022 0.5 mL Kenalog 12/10/2019 0.5 mL Kenalog 03/08/2020 0.5 mL Kenalog 06/01/2020 0.5 mL Kenalog 07/21/2020 0.5 mL Kenalog 10/12/2020 0.5 mL Kenalog 11/09/2021 0.5 mL Kenalog 09/13/2022 0.5 mL Medical (General) History Medical History History ICD Code Unspecified asthma, [...]
--- OUTSIDE RECORDS SUMMARY | 2024-04-20 06:14 | XMS_ITS | Encounter Summary ---
Author Organization [facility] Address [address] [place] [address] Care Team Providers Care Degreaser Operator Name Role Phone Corinne Figueroa MD Primary Care Provider Ladnen Josue PA-C Unavailable [phone] Encounter Details Date Type Department Care Team Description 10/29/2019 Telephone Podiatry - [address] [address] Corinne Figueroa MD Social History Tobacco Use Types Packs/Day [...] on filedocumented in this encounter Care Teams Degreaser Operator Relationship Specialty Start Date End Date Corinne Figueroa MD PCP - General Internal Medicine 05/21/19 Landen Collado PA-C [address] [facility] [address] [place] [address] Specialist Neurosurgery 04/03/21 documented as of this encounter
--- OUTSIDE RECORDS SUMMARY | 2024-04-20 06:14 | XMS_ITS | Encounter Summary ---
Author Organization [facility] Address [address] [place] [address] Care Team Providers Care Charcoal Burner Beehive Kiln Name Role Phone Luis Enrique Cheek MD Primary Care Provider Corinne De La O MD Primary Care Provider Landen Josue PA-C Unavailable [phone] Encounter Details Date Type Department Care Team Description 01/03/2016 Controlled Substance Plan Medical Records [address] [place] [address] Abstract, Provider Social History Tobacco Use Types [...] on filedocumented in this encounter Care Teams Charcoal Burner Beehive Kiln Relationship Specialty Start Date End Date Luis Enrique Cheek MD PCP - General Internal Medicine 09/19/15 05/20/19 Corinne Figueroa MD PCP - General Internal Medicine 05/21/19 Landen Collado PA-C [address] [facility] [address] [place] [address] Specialist Neurosurgery 04/03/21 documented as of this encounter
--- OUTSIDE RECORDS SUMMARY | 2024-04-20 06:14 | XMS_ITS | Encounter Summary ---
Author Organization [facility] Address [address] [place] [address] Care Team Providers Care Shovel Mechanic Name Role Phone Corinne Figueroa MD Primary Care Provider Landen Josue PA-C Unavailable [phone] Reason for Visit * Reason Comments E-prescribe Rx Request Encounter Details Date Type Department Care Team Description 11/18/2019 Refill Physiatry - [place] [address] [place] [address] Jamal Mir DO E-prescribe Rx Request Social [...] encounter Miscellaneous Notes * Telephone Encounter - Una Persaud M.A. - 11/18/2019 12:55 PM EDT Rx sent to pharmacy. * Telephone Encounter - Renetta Tolentino L.P.N. - 11/18/2019 12:50 PM EDT Last refill 08/24/19 Last visit 02/12/19 Next visit not booked documented in this [...] limb documented in this encounter Care Teams Shovel Mechanic Relationship Specialty Start Date End Date Corinne Figueroa MD PCP - General Internal Medicine 05/21/19 Landen Collado PA-C [address] [place] [address] Specialist Neurosurgery 04/03/21 documented as of this encounter
--- OUTSIDE RECORDS SUMMARY | 2024-04-20 06:14 | XMS_ITS | Encounter Summary ---
Author Organization [facility] Address [address] [place] [address] Care Team Providers Care Burner Tender Name Role Phone Luis Enrique Cheek MD Primary Care Provider Corinne De La O MD Primary Care Provider Landen Josue PA-C Unavailable [phone] Encounter Details Date Type Department Care Team Description 02/01/2016 Cut Off Machine Helper Report Medical Records [address] [place] [address] Tabatha Henderson Social History Tobacco Use Types Packs/Day Years [...] on filedocumented in this encounter Care Teams Burner Tender Relationship Specialty Start Date End Date Luis Enrique Cheek MD PCP - General Internal Medicine 09/19/15 05/20/19 Corinne Figueroa MD PCP - General Internal Medicine 05/21/19 Landen Collado PA-C [address] [facility] [address] [place] [address] Specialist Neurosurgery 04/03/21 documented as of this encounter
== END 2024-04-20 06:11 | disposition home or self-care (01) ==
LOC: CF 06:10
PROVIDERS: Visit Provider Anesthesiology
DX: M53.3 Sacrococcygeal disorders, not elsewhere classified (principal)
CPT/HCPCS: 27096; J2003; J2795; J3301

== ENCOUNTER 2024-04-20 07:07 | Outpatient (AMB) | payer OTHER, SELFPAY ==
[2024-04-20 07:13] VITALS: BP 95/56; PULSE 75; O2SAT 99
--- NOTE | 2024-04-20 07:13 | A.OFFVIS_ITS ---
Vital Signs 04/20/24 07:13 04/20/24 07:38 BP 95/56 L 105/64 Blood Pressure Location Lt brachial Lt brachial Position Sitting Sitting Pulse 75 68 Pulse Source Pulse Oximeter Pulse Oximeter Pulse Oximetry (%) 99 99 Oxygen Delivery Method Room Air Room Air Comment Pre-Op Post-Op Intake Visit Reasons: RIGHT THERAPEUTIC SIJ INJECTION Allergies Iodinated Contrast Media [Iodinated Contrast Media - IV Dye] Allergy (Intermed iate, Verified 03/09/24 08:29) HIVES ketorolac [From Toradol] Allergy (Intermediate, Verified 03/09/24 08:29) localized redness/swelling [facility] Medical History (Updated 03/09/24 @ 09:22 by Corinne Figueroa MD) Seizure disorder Syncope Cervical spondylosis with radiculopathy Cervical radiculopathy Cervical strain Neck pain Hematoma following procedure Calf pain Incisional pain Postoperative bleeding from incision Cellulitis Anemia Anxiety with depression Fatty liver Back pain Arthritis Abscess or cellulitis of knee Skin laxity Hyperlipidemia GERD (gastroesophageal reflux disease) COVID-19 vaccine administered Postlaminectomy syndrome Bunion of left foot Postconcussion syndrome Labral tear of right hip joint Spinal stenosis Colon polyps Allergic rhinitis Herpes Chronic sinusitis Depression Migraines Asthma Hypotension Malabsorption due to intolerance, not elsewhere classified Surgical History Hx of spinal fusion S/P plastic surgery S/P panniculectomy History of hip surgery History of endometrial ablation S/P tonsillectomy S/P bilateral foot surgery History of appendectomy H/O colonoscopy H/O endoscopy S/P laparoscopic sleeve gastrectomy H/O laminectomy Family History Father No problems noted. Mother Cervical spine tumor Brother No problems noted. Brother No problems noted. Brother No problems noted. Brother No problems noted. Sister Mental health disorder Son No problems noted. Daughter No problems noted. Social History Household Members: Spouse Housing: House Are you a primary district manager primary care sales to a significant other at home: No Do you presently have visiting nurse or other home services: No Unable to assess alcohol history related to: Unknown Alcohol intake: former Comment: count correct Patient Tobacco Use Status: Never used Tobacco e-Cigarette/Vaping Use: Never Used Second Hand Smoke Exposure: No Substance Use Type: Marijuana Advance Directives Date on File: 10/28/23 service: No Current occupational status: disabled Cognitive needs: No Hearing needs: No Vision needs: No Physical Exam Vital Signs: Last Vital Signs Pulse 75 04/20/24 07:13 BP 95/56 L 04/20/24 07:13 Pulse Ox 99 04/20/24 07:13 Oxygen Delivery Method Room Air 04/20/24 07:13 Assessment & Plan Assessment & Plan (1) Sacroiliac joint dysfunction of right side: Code(s): M53.3 - Sacrococcygeal disorders, not elsewhere classified Category: Medical Plan Therapeutic right sacroiliac joint injection. (contrast allergy). Informed consent was thoroughly explained to the patient before the procedure.? The patient came to the operating room.? She was positioned prone on operating table with a pillow under her abdomen.? Time-out was performed delineating correct site and side of the procedure, nature of the injection, name and date of of the patient. The lower back and upper buttocks of the patient was prepped with ChloraPrep and draped with sterile utility towels.? C-arm was brought over the operating field the image of the right sacroiliac joint was demonstrated on the screen. Tilting machine contralateral to the left the anterior portion of sacroiliac joint was superimposed of the posterior portion of the sacroiliac joint. After that projection of the sacroiliac joint to the skin was injected with mixture of lidocaine 2 % and ropivacaine 0.5% to form a skin wheal. After that 22 gauge 3- 1/2 inch needle was inserted through the skin wheal and advanced to the sacroiliac joint. No contrat was injected. After that injection of the ropivacaine 0.5% 5 cc mixed with kenalog 40 mg was performed into the joint. The needle was removed sterile Band-Aid was applied. Patient tolerated the procedure well. Orders: Orders FL guidance in treatment room Today M53.3 - Sacrococcygeal disorders, not elsewhere classified Coding Level of Care Code Procedure Only Diagnoses Sacroiliac joint dysfunction of right side M53.3
[2024-04-20 07:38] VITALS: BP 105/64; PULSE 68; O2SAT 99
== END 2024-04-20 07:40 | disposition home or self-care (01) ==
LOC: HO.PMCPRC 07:07
PROVIDERS: PCP Internal Medicine; Visit Provider Anesthesiology
DX: M53.3 Sacrococcygeal disorders, not elsewhere classified (principal)
CPT/HCPCS: 27096

== ENCOUNTER 2024-04-21 09:49 | Outpatient (AMB) | payer OTHER, SELFPAY ==
--- NOTE | 2024-04-21 09:57 | A.OFFVIS_ITS ---
VS Expanded 04/21/24 09:59 BP 124/53 L Blood Pressure Location Rt brachial Blood Pressure Position Sitting Pulse 72 Pulse Source Pulse Oximeter Temp 98.1 F Temperature Source Temporal Artery Scan Pulse Oximetry 98 Oxygen Delivery Method Room Air Height 5 ft 7 in Weight 145 lb 12.8 oz BMI 22.8 Body Fat % 33.1 Body Fat Mass 48.2 Fat Free Mass 97.4 Visceral Fat Rating 7.0 Body Water % 47.2 Body Water Mass 68.8 Muscle Mass/Score 92.6 Basal Metabolic Rate/Score 1,316 Intake Visit Reasons: OV po lsg 07/16/2018 Allergies Iodinated Contrast Media [Iodinated Contrast Media - IV Dye] Allergy (Intermediate, Verified 04/21/24 10:00) HIVES ketorolac [From Toradol] Allergy (Intermediate, Verified 04/21/24 10:00) localized redness/swelling Medication List - Last Reconciled 04/21/24 by TALISHA Valladares acyclovir 5% 1 appl topical .q 4 hrs albuterol sulfate 90 mcg/actuation 2 puffs inhalation Q4-6H PRN brimonidine 0.2% 1 drp ophthalmic (eye) BID ilaurjliuk-flgpyayimsxux-fbcn 50-325-40 mg 1 tab PO .QD PRN clonazepam 1 mg PO BID divalproex ER (Depakote ER) 500 mg PO BID fluticasone furoate-vilanterol 100-25 mcg/dose 1 inh inhalation DAILY fluticasone propionate 50 mcg/actuation 1 spray intranasal DAILY PRN gabapentin (Neurontin) 600 mg PO TID 30 days lidocaine 5% 1 patch topical DAILY paroxetine HCl 40 mg PO BEDTIME paroxetine HCl 10 mg PO BEDTIME quetiapine 100 mg PO BEDTIME quetiapine 25 mg PO BID PRN valacyclovir (Valtrex) 2,000 mg (2 x 1 gram) PO Q12H HPI Comments Details: This?is a?63?yo female who is s/p LSG 07/16/2018. Weight at last visit 1 year ago was 148 pounds; weight today is 145.8 pounds, representing a 2.2 pound weight loss with a BMI today of 22.8.? She was hospitalized in January for abdominal pain, unclear etiology, has had multiple colonoscopies with the last one a few years ago. Notes some weight loss which is in part unintentional. Present meal plan includes: goal of 70-80 g per day Premier protein shake, serving of fruit lunch:? Zone perfect protein bar, fruit and yogurt or protein and vegetables Dinner:? Protein and vegetables sometimes will snack on fruit, or a cupcake Exercise routine includes: limited due to chronic pain Have you been diagnosed with reflux (GERD)? Score 0-5: 0=no symptoms, 1=noticeable but not bothersome (slight or occasional), 2=noticeable, bothersome but not daily, 3=bothersome and daily, 4=affects daily activities, 5=incapacitating, unable to do daily activities How bad is the heartburn: 2 Heartburn when lying down: 1 Heartburn when standing up: 0 Heartburn after meals: 2 Does heartburn change your diet: 0 Does heartburn wake you up from sleep: 0 Do you have difficulty swallowin Do you have pain with swallowin If you take medication for reflux, does this affect your daily life: 0 Total score: 11 PFSH Medical History Seizure disorder Syncope Cervical spondylosis with radiculopathy Cervical radiculopathy Cervical strain Neck pain Hematoma following procedure Calf pain Incisional pain Postoperative bleeding from incision Cellulitis Anemia Anxiety with depression Fatty liver Back pain Arthritis Abscess or cellulitis of knee Skin laxity Hyperlipidemia GERD (gastroesophageal reflux disease) COVID-19 vaccine administered Postlaminectomy syndrome Bunion of left foot Postconcussion syndrome Labral tear of right hip joint Spinal stenosis Colon polyps Allergic rhinitis Herpes Chronic sinusitis Depression Migraines Asthma Hypotension Malabsorption due to intolerance, not elsewhere classified Surgical History Hx of spinal fusion S/P plastic surgery S/P panniculectomy History of hip surgery History of endometrial ablation S/P tonsillectomy S/P bilateral foot surgery History of appendectomy H/O colonoscopy H/O endoscopy S/P laparoscopic sleeve gastrectomy H/O laminectomy Family History Father No problems noted. Mother Cervical spine tumor Brother No problems noted. Brother No problems noted. Brother No problems noted. Brother No problems noted. Sister Mental health disorder Son No problems noted. Daughter No problems noted. Social History Household Members: Spouse Housing: House Are you a primary child care worker to a significant other at home: No Do you presently have visiting nurse or other home services: No Unable to assess alcohol history related to: Unknown Alcohol intake: former Comment: count correct Patient Tobacco Use Status: Never used Tobacco e-Cigarette/Vaping Use: Never Used Second Hand Smoke Exposure: No Substance Use Type: Marijuana Advance Directives Date on File: 10/28/23 service: No Current occupational status: disabled Cognitive needs: No Hearing needs: No Vision needs: No Physical Exam Vital Signs: Last Vital Signs Temp 98.1 F 04/21/24 09:59 Pulse 72 04/21/24 09:59 BP 124/53 L 04/21/24 09:59 Pulse Ox 98 04/21/24 09:59 Oxygen Delivery Method Room Air 04/21/24 09:59 BMI result Body Mass Index 22.8 Assessment & Plan Assessment & Plan (1) History of sleeve gastrectomy: Code(s): Z90.3 - Acquired absence of stomach [part of] Category: Medical Plan Will facilitate GI referral. Pt has healthy weight but some of her weight loss was unintentional and this should be evaluated. Vitamin labs ordered. RTC 1 year. Orders: Orders Vitamin D 25-OH Total Today Z90.3 - Acquired absence of stomach [part of] Vitamin B1 Today Z90.3 - Acquired absence of stomach [part of] Zinc Today Z90.3 - Acquired absence of stomach [part of] Vitamin A Today Z90.3 - Acquired absence of stomach [part of] Vitamin B12 and Folate Today Z90.3 - Acquired absence of stomach [part of] Medications: New lidocaine 5% leave on most painful area for up to 12 hrs 1 patch topical DAILY 30 ea 1RF
[2024-04-21 09:59] VITALS: BP 124/53; PULSE 72; TEMP 36.7; O2SAT 98; BMI 22.8
--- OUTSIDE RECORDS SUMMARY | 2024-04-21 11:15 | XMS_ITS | Encounter Summary ---
Author Organization [facility] Address [address] [place] [address] Care Team Providers Care Pigskin Trimmer Name Role Phone Luis Enrique Cheek MD Primary Care Provider Corinne De La O MD Primary Care Provider Landen Josue PA-C Unavailable [phone] Encounter Details Date Type Department Care Team Description 05/12/2018 [facility] Medical Records [address] [place] [address] Jamal Mir DO Social History Tobacco Use [...] on filedocumented in this encounter Care Teams Pigskin Trimmer Relationship Specialty Start Date End Date Luis Enrique Cheek MD PCP - General Internal Medicine 09/19/15 05/20/19 Corinne Figueroa MD PCP - General Internal Medicine 05/21/19 Landen Collado PA-C [address] [facility] [address] [place] [address] Specialist Neurosurgery 04/03/21 documented as of this encounter
--- OUTSIDE RECORDS SUMMARY | 2024-04-21 11:15 | XMS_ITS | Encounter Summary ---
Author Organization [facility] Address [address] [place] [address] Care Team Providers Care Online Affiliate Marketing Manager Name Role Phone Luis Enrique Cheek MD Primary Care Provider Corinne De La O MD Primary Care Provider Landen Josue PA-C Unavailable [phone] Reason for Visit * Reason Comments E-prescribe Rx Request Encounter Details Date Type Department Care Team Description 12/18/2017 Refill Adult Medicine [address] [address] Luis Enrique Cheek MD E-prescribe Rx Request [...] encounter Miscellaneous Notes * Telephone Encounter - Prachi Bullock - 12/19/2017 8:52 AM EDT Patient would like script to be: E-PRESCRIBED/FAXED TO PHARMACY WHEN WAS THE PATIENT'S LAST APPOINTMENT IN ADULT MEDICINE? 03/12/17 WHEN WAS THE LAST TIME THE PATIENT SAW THEIR PCP? Same as above Does patient have an upcoming appointment? No-[facility]ill [...] insurance carrier is: [place] / Plan: MEDICARE-[place]AST Software / Product Type: MEDICARE [id number] documented in this encounter Plan of Treatment Not on file documented as of this encounter Visit Diagnoses Not on filedocumented in this encounter Care Teams Online Affiliate Marketing Manager Relationship Specialty Start Date End Date Luis Enrique Cheek MD PCP - General Internal Medicine 09/19/15 05/20/19 Corinne Figueroa MD PCP - General Internal Medicine 05/21/19 Landen Collado PA-C [address] [place] [address] Specialist Neurosurgery 04/03/21 documented as of this encounter
--- OUTSIDE RECORDS SUMMARY | 2024-04-21 11:15 | XMS_ITS | Encounter Summary ---
Author Organization [facility] Address [address] [place] [address] Care Team Providers Care Computer Tech Name Role Phone Luis Enrique Cheek MD Primary Care Provider Corinne De La O MD Primary Care Provider Landen Josue PA-C Unavailable [phone] Reason for Visit * Reason Onset Date Comments refill request 08/19/2018 Encounter Details Date Type Department Care Team Description 08/19/2018 Refill Physiatry - [address] [address] Jamal Mir DO refill request Social History Tobacco Use Types Packs/Day Years Used Date Smoking Tobacco: Former Cigarettes 1 10 0 02/17/1982 - 08/02/1998 Smokeless Tobacco: Never Alcohol Use Standard Drinks/Week Comments No 0 (1 standard drink = 0.6 oz pur e alcohol) quit 04/18/87 Sex Assigned at Date Recorded Not on file documented as of this encounter Miscellaneous Notes * Telephone Encounter - Aisha Adamson M.A. - 08/19/2018 4:02 PM EDT I spoke to patient and she was given script on 06/01/18 but then had a gastric sleeve so was given liquid Gabapentin on 07/14/18. Gastro said cleared her to go back on capsules and she states she did this and emptied the rest of the liquid gabapentin down the drain and finished the rest of her pills and she is now out of medications. * Telephone Encounter - Shaneka Daniels - 08/19/2018 3:46 PM EDT Pt returning Aisha's call, please give her a call back whenever you have a moment. Thank you * Telephone Encounter - Aisha Adamson M.A. - 08/19/2018 3:42 PM EDT Message left for patient to call * Telephone Encounter - Luis Miguel Cadena PA-C - 08/19/2018 3:33 PM EDT According to the [facility], last time she was on gabapentin was in 2018. I do see a prescription on July 14, 2018 for liquid gabapentin written by me. She should be evaluated to determine if she still needs the medication. * Telephone Encounter - Renetta Tolentino L.P.N. - 08/19/2018 3:00 PM EDT Last refill 06/01/18 Last visit 07/14/18 with Luis Miguel Cadena Last visit not booked Message to Mr Cadena to review request * Telephone Encounter - Mayuri Johnson - 08/19/2018 2:55 PM EDT Patient would like script to be: E-PRESCRIBED/FAXED TO PHARMACY WHEN WAS THE PATIENT'S LAST APPOINTMENT IN ADULT MEDICINE? 07/14/18 WHEN WAS THE LAST TIME THE PATIENT SAW THEIR PCP? Same as above Does patient have an upcoming appointment? No it was stated to return if symptoms fail to improved. (THE MEDICATION REQUESTED IS ON THE MED [...] N/A Patients current insurance carrier is: Payor: [employer] [facility] [employer] / Plan: [facility] / Product Type: HMO [id number] documented in this encounter Plan of Treatment Not on file documented as of this encounter Visit Diagnoses Diagnosis Spinal stenosis of lumbar region with neurogenic claudication Spinal stenosis, lumbar region, with neurogenic claudication Lumbar radiculitis Thoracic or lumbosacral neuritis or radiculitis, unspecified Osteoarthritis of spine with radiculopathy, lumbar region Muscle cramps Cramp of limb documented in this encounter Care Teams Computer Tech Relationship Specialty Start Date End Date Luis Enrique Cheek MD PCP - General Internal Medicine 09/19/15 05/20/19 Corinne Figueroa MD PCP - General Internal Medicine 05/21/19 Landen Collado PA-C [address] [place] [address] Specialist Neurosurgery 04/03/21 documented as of this encounter
--- OUTSIDE RECORDS SUMMARY | 2024-04-21 11:15 | XMS_ITS | Encounter Summary ---
Author Organization [facility] Address [address] [place] [address] Care Team Providers Care Primer Waterproofing Machine Adjuster Name Role Phone Luis Enrique Cheek MD Primary Care Provider Luis Enrique Granados MD Primary Care Provider Luis Enrique Granados MD Primary Care Provider Corinne De La O MD Primary Care Provider Landen Josue PA-C Unavailable [phone] Encounter Details Date Type Department Care Team Description 01/24/2015 SALESPERSON NEW CARS/[facility] Report Medical Records [address] [place] [address] Abstract, Provider Social History Tobacco Use Types [...] on filedocumented in this encounter Care Teams Primer Waterproofing Machine Adjuster Relationship Specialty Start Date End Date Luis Enrique Cheek MD PCP - General Internal Medicine 06/09/14 09/09/15 Luis Enrique Cheek MD PCP - General Internal Medicine 09/10/15 09/18/15 Luis Enrique Cheek MD PCP - General Internal Medicine 09/19/15 05/20/19 Corinne Figueroa MD PCP - General Internal Medicine 05/21/19 Landen Collado PA-C [address] [facility] [address] [place] [address] Specialist Neurosurgery 04/03/21 documented as of this encounter
--- OUTSIDE RECORDS SUMMARY | 2024-04-21 11:15 | XMS_ITS | Encounter Summary ---
Author Organization [facility] Address [address] [place] [address] Care Team Providers Care Bottom Precipitator Operator Name Role Phone Luis Enrique Cheek MD Primary Care Provider Luis Enrique Granados MD Primary Care Provider Luis Enrique Granados MD Primary Care Provider Corinne De La O MD Primary Care Provider Landen Josue PA-C Unavailable [phone] Encounter Details Date Type Department Care Team Description 02/21/2015 Hospice Aide Report Medical Records [address] [place] [address] Selwyn Oliva Social History Tobacco Use Types Packs/Day Years Used Date Smoking Tobacco: Former Alcohol Use Standard Drinks/Week Comments Not Asked 0 (1 standard drink = 0.6 oz pur e alcohol) Sex Assigned at Date Recorded Not on file documented as of this encounter Plan of Treatment Not on file documented as of this encounter Visit Diagnoses Not on filedocumented in this encounter Care Teams Bottom Precipitator Operator Relationship Specialty Start Date End Date Luis Enrique Cheek MD PCP - General Internal Medicine 06/09/14 09/09/15 Luis Enrique Cheek MD PCP - General Internal Medicine 09/10/15 09/18/15 Luis Enrique Cheek MD PCP - General Internal Medicine 09/19/15 05/20/19 Corinne Figueroa MD PCP - General Internal Medicine 05/21/19 Landen Collado PA-C [address] [facility] [address] [place] [address] Specialist Neurosurgery 04/03/21 documented as of this encounter
--- OUTSIDE RECORDS SUMMARY | 2024-04-21 11:15 | XMS_ITS | Encounter Summary ---
Author Organization [facility] Address [address] [place] [address] Care Team Providers Care Painter And Decorator Name Role Phone Luis Enrique Cheek MD Primary Care Provider Luis Enrique Granados MD Primary Care Provider Luis Enrique Granados MD Primary Care Provider Corinne De La O MD Primary Care Provider Landen Josue PA-C Unavailable [phone] Encounter Details Date Type Department Care Team Description 01/23/2015 [facility] Medical Records [address] [place] [address] Pradeep Hennessy MD Social History Tobacco Use [...] on filedocumented in this encounter Care Teams Painter And Decorator Relationship Specialty Start Date End Date Luis Enrique Cheek MD PCP - General Internal Medicine 06/09/14 09/09/15 Luis Enrique Cheek MD PCP - General Internal Medicine 09/10/15 09/18/15 Luis Enrique Cheek MD PCP - General Internal Medicine 09/19/15 05/20/19 Corinne Figueroa MD PCP - General Internal Medicine 05/21/19 Landen Collado PA-C [address] [facility] [address] [place] [address] Specialist Neurosurgery 04/03/21 documented as of this encounter
--- OUTSIDE RECORDS SUMMARY | 2024-04-21 11:15 | XMS_ITS | Encounter Summary ---
Author Organization [facility] Address [address] [place] [address] Care Team Providers Care Microfilm Equipment Inspector Name Role Phone Luis Enrique Cheek MD Primary Care Provider Corinne De La O MD Primary Care Provider Landen Josue PA-C Unavailable [phone] Encounter Details Date Type Department Care Team Description 09/20/2016 Orders Only Medical Records [address] [place] [address] Raeann Mota DPM Social History Tobacco Use [...] on filedocumented in this encounter Care Teams Microfilm Equipment Inspector Relationship Specialty Start Date End Date Luis Enrique Cheek MD PCP - General Internal Medicine 09/19/15 05/20/19 Corinne Figueroa MD PCP - General Internal Medicine 05/21/19 Landen Collado PA-C [address] [place] [address] Specialist Neurosurgery 04/03/21 documented as of this encounter
--- OUTSIDE RECORDS SUMMARY | 2024-04-21 11:15 | XMS_ITS | Encounter Summary ---
Author Organization [facility] Address [address] [place] [address] Care Team Providers Care Machinist Supervisor Outside Name Role Phone Luis Enrique Cheek MD Primary Care Provider Luis Enrique Granados MD Primary Care Provider Luis Enrique Granados MD Primary Care Provider Corinne De La O MD Primary Care Provider Landen Josue PA-C Unavailable [phone] Encounter Details Date Type Department Care Team Description 05/22/2015 Taper/Finisher Report Medical Records [address] [place] [address] Koko Avery Social History Tobacco Use Types [...] on filedocumented in this encounter Care Teams Machinist Supervisor Outside Relationship Specialty Start Date End Date Luis Enrique Cheek MD PCP - General Internal Medicine 06/09/14 09/09/15 Luis Enrique Cheek MD PCP - General Internal Medicine 09/10/15 09/18/15 Luis Enrique Cheek MD PCP - General Internal Medicine 09/19/15 05/20/19 Corinne Figueroa MD PCP - General Internal Medicine 05/21/19 Landen Collado PA-C [address] [facility] [address] [place] [address] Specialist Neurosurgery 04/03/21 documented as of this encounter
--- OUTSIDE RECORDS SUMMARY | 2024-04-21 11:15 | XMS_ITS | Encounter Summary ---
Author Organization [facility] Address [address] [place] [address] Care Team Providers Care Division Head Name Role Phone Luis Enrique Cheek MD Primary Care Provider Corinne De La O MD Primary Care Provider Landen Josue PA-C Unavailable [phone] Reason for Visit * Reason Comments E-prescribe Rx Request Encounter Details Date Type Department Care Team Description 03/08/2018 Refill Physiatry - [place] [address] [place] [address] Jamal Mir DO E-prescribe Rx Request Social [...] limb documented in this encounter Care Teams Division Head Relationship Specialty Start Date End Date Luis Enrique Cheek MD PCP - General Internal Medicine 09/19/15 05/20/19 Corinne Figueroa MD PCP - General Internal Medicine 05/21/19 Landen Collado PA-C [address] [place] [address] Specialist Neurosurgery 04/03/21 documented as of this encounter
--- OUTSIDE RECORDS SUMMARY | 2024-04-21 11:15 | XMS_ITS | Encounter Summary ---
Author Organization [facility] Address [address] [place] [address] Care Team Providers Care Pan Greaser Name Role Phone Luis Enrique Cheek MD Primary Care Provider Corinne De La O MD Primary Care Provider Landen Josue PA-C Unavailable [phone] Reason for Visit * Reason Comments E-prescribe Rx Request Encounter Details Date Type Department Care Team Description 05/12/2017 Refill Adult Medicine [address] [address] Hilda Burger APRN E-prescribe Rx Request Social [...] an upcoming appointment? No[facility] due to refill request. Appt due (THE MEDICATION REQUESTED IS ON THE MED LIST ABOVE) All of the medications requested were on the CURRENT MEDS list Did you check the Pharmacy information above?: YES Patient wants: 30 -day supply Is this a mail order prescription request ? NO Patients current insurance carrier is: Payor: [employer] / Plan: [employer] / Product Type: MEDICAID RISK documented in this encounter Plan of Treatment Not on file documented as of this encounter Visit Diagnoses Not on filedocumented in this encounter Care Teams Pan Greaser Relationship Specialty Start Date End Date Luis Enrique Cheek MD PCP - General Internal Medicine 09/19/15 05/20/19 Corinne Figueroa MD PCP - General Internal Medicine 05/21/19 Landen Collado PA-C [address] [place] [address] [place] [address] Specialist Neurosurgery 04/03/21 documented as of this encounter
--- OUTSIDE RECORDS SUMMARY | 2024-04-21 11:15 | XMS_ITS | Encounter Summary ---
Author Organization [facility] Address [address] [place] [address] Care Team Providers Care Shell Worker Name Role Phone Luis Enrique Cheek MD Primary Care Provider Corinne De La O MD Primary Care Provider Landen Josue PA-C Unavailable [phone] Reason for Visit * Reason Comments E-prescribe Rx Request Encounter Details Date Type Department Care Team Description 02/25/2017 Refill Adult Medicine [address] [address] Luis Enrique Cheek MD E-prescribe Rx Request [...] encounter Miscellaneous Notes * Telephone Encounter - Vi Ardon - 02/25/2017 1:43 PM EST Patient would like script to be: E-PRESCRIBED/FAXED TO PHARMACY WHEN WAS THE PATIENT'S LAST APPOINTMENT IN ADULT MEDICINE? 03/10/17 WHEN WAS THE LAST TIME THE PATIENT SAW THEIR PCP? 03/10/17 Does patient have an upcoming appointment? Yes 03/12/17 (THE MEDICATION REQUESTED IS ON THE MED LIST ABOVE) All of the medications requested were on the CURRENT MEDS list Did you check the Pharmacy information above?: YES Patient wants: 30 -day supply Is this a mail order prescription request ? NO Patients current insurance carrier is: Payor: [facility] MEDICAID / Plan: [facility] MEDICAID HMO $0 [place] / Product Type: HMO [id number] documented in this encounter Plan of Treatment Not on file documented as of this encounter Visit Diagnoses Not on filedocumented in this encounter Care Teams Shell Worker Relationship Specialty Start Date End Date Luis Enrique Cheek MD PCP - General Internal Medicine 09/19/15 05/20/19 Corinne Figueroa MD PCP - General Internal Medicine 05/21/19 Landen Collado PA-C [address] [place] [address] Specialist Neurosurgery 04/03/21 documented as of this encounter
--- OUTSIDE RECORDS SUMMARY | 2024-04-21 11:15 | XMS_ITS | Encounter Summary ---
Author Organization [facility] Address [address] [place] [address] Care Team Providers Care Machine Sewer Name Role Phone Luis Enrique Cheek MD Primary Care Provider Corinne De La O MD Primary Care Provider Landen Josue PA-C Unavailable [phone] Reason for Visit * Reason Onset Date Comments APPOINTMENT 05/01/2016 cancellation lis t Encounter Details Date Type Department Care Team Description 05/01/2016 Telephone Podiatry - [address] [address] Raeann Mota DPM APPOINTMENT (cancellation list) Social [...] on filedocumented in this encounter Care Teams Machine Sewer Relationship Specialty Start Date End Date Luis Enrique Cheek MD PCP - General Internal Medicine 09/19/15 05/20/19 Corinne Figueroa MD PCP - General Internal Medicine 05/21/19 Landen Collado PA-C [address] [place] [address] Specialist Neurosurgery 04/03/21 documented as of this encounter
--- OUTSIDE RECORDS SUMMARY | 2024-04-21 11:15 | XMS_ITS | Encounter Summary ---
Author Organization [facility] Address [address] [place] [address] Care Team Providers Care Pin Inserter Regulator Name Role Phone Corinne Figueroa MD Primary Care Provider Landen Josue PA-C Unavailable Encounter Details Date Type Department Care Team Description 05/04/2021 SCAN [facility] Medical [facility] Neurosurgery [place] [address] [phone] Slim Cervantes MD, PHD Social History Tobacco [...] on filedocumented in this encounter Care Teams Pin Inserter Regulator Relationship Specialty Start Date End Date Corinne Figueroa MD PCP - General Internal Medicine 05/21/19 Landen Collado PA-C [address] [address] Specialist Neurosurgery 04/03/21 documented as of this encounter
--- OUTSIDE RECORDS SUMMARY | 2024-04-21 11:15 | XMS_ITS | Encounter Summary ---
Author Organization [facility] Address [address] [place] [address] Care Team Providers Care Set Rider Name Role Phone Luis Enrique Cheek MD Primary Care Provider Corinne De La O MD Primary Care Provider Landen Josue PA-C Unavailable [phone] Encounter Details Date Type Department Care Team Description 05/08/2017 Ecd Report Medical Records [address] [place] [address] Mika Villanueva MD Social History Tobacco Use [...] on filedocumented in this encounter Care Teams Set Rider Relationship Specialty Start Date End Date Luis Enrique Cheek MD PCP - General Internal Medicine 09/19/15 05/20/19 Corinne Figueroa MD PCP - General Internal Medicine 05/21/19 Landen Collado PA-C [address] [facility] [address] [place] [address] Specialist Neurosurgery 04/03/21 documented as of this encounter
--- OUTSIDE RECORDS SUMMARY | 2024-04-21 11:15 | XMS_ITS | Encounter Summary ---
Author Organization [facility] Address [address] [place] [address] Care Team Providers Care Vamp Cut Out Worker Name Role Phone Luis Enrique Cheek MD Primary Care Provider Corinne De La O MD Primary Care Provider Landen Josue PA-C Unavailable [phone] Encounter Details Date Type Department Care Team Description 03/15/2016 [facility] Medical Records [address] [place] [address] Torsten Samano MD Social History Tobacco Use Types Packs/Day [...] on filedocumented in this encounter Care Teams Vamp Cut Out Worker Relationship Specialty Start Date End Date Luis Enrique Cheek MD PCP - General Internal Medicine 09/19/15 05/20/19 Corinne Figueroa MD PCP - General Internal Medicine 05/21/19 Landen Collado PA-C [address] [facility] [address] [place] [address] Specialist Neurosurgery 04/03/21 documented as of this encounter
--- OUTSIDE RECORDS SUMMARY | 2024-04-21 11:15 | XMS_ITS | Encounter Summary ---
Author Organization [facility] Address [address] [place] [address] Care Team Providers Care Linoleum Floor Layer Name Role Phone Luis Enrique Cheek MD Primary Care Provider Luis Enrique Granados MD Primary Care Provider Luis Enrique Granados MD Primary Care Provider Corinne De La O MD Primary Care Provider Landen Josue PA-C Unavailable [phone] Encounter Details Date Type Department Care Team Description 04/12/2015 Refill Adult Medicine [address] [address] Luis Enrique Cheek MD Social History Tobacco [...] on filedocumented in this encounter Care Teams Linoleum Floor Layer Relationship Specialty Start Date End Date Luis Enrique Cheek MD PCP - General Internal Medicine 06/09/14 09/09/15 Luis Enrique Cheek MD PCP - General Internal Medicine 09/10/15 09/18/15 Luis Enrique Cheek MD PCP - General Internal Medicine 09/19/15 05/20/19 Corinne Figueroa MD PCP - General Internal Medicine 05/21/19 Landen Collado PA-C [address] [place] [address] Specialist Neurosurgery 04/03/21 documented as of this encounter
--- OUTSIDE RECORDS SUMMARY | 2024-04-21 11:15 | XMS_ITS | Encounter Summary ---
Author Organization [facility] Address [address] [place] [address] Care Team Providers Care Delineator Name Role Phone Luis Enrique Cheek MD Primary Care Provider Corinne De La O MD Primary Care Provider Landen Josue PA-C Unavailable [phone] Reason for Visit * Reason Comments E-prescribe Rx Request Encounter Details Date Type Department Care Team Description 11/13/2017 Refill Adult Medicine [address] [address] Luis Enrique Cheek MD E-prescribe Rx Request [...] appointment? No patient states no longer with [facility] (THE MEDICATION REQUESTED IS ON THE MED LIST ABOVE) All of the medications requested were on the CURRENT MEDS list No longer Patient of [email or web address] Did you check the Pharmacy information above?: YES Patient wants: 30 -day supply Is this a mail order prescription request ? NO If the refill is from a FAXED refill request what is the RX # listed on the fax? N/A Patients current insurance carrier is: [place] / Plan: [employer] / Product Type: MEDICARE [id number] documented in this encounter Plan of Treatment Not on file documented as of this encounter Visit Diagnoses Not on filedocumented in this encounter Care Teams Delineator Relationship Specialty Start Date End Date Luis Enrique Cheek MD PCP - General Internal Medicine 09/19/15 05/20/19 Corinne Figueroa MD PCP - General Internal Medicine 05/21/19 Landen Collado PA-C [address] [place] [address] [place] [address] Specialist Neurosurgery 04/03/21 documented as of this encounter
--- OUTSIDE RECORDS SUMMARY | 2024-04-21 11:15 | XMS_ITS | Encounter Summary ---
Author Organization [facility] Address [address] [place] [address] Care Team Providers Care Paper Sheeter Name Role Phone Corinne Figueroa MD Primary Care Provider Landen Josue PA-C Unavailable [phone] Reason for Visit * Reason Onset Date Comments Pain, Post Operative 05/08/2021 Encounter Details Date Type Department Care Team Description 05/08/2021 Telephone [facility] Neurosurgery [place] [address] [facility] [address] [place] [phone] Landen Collado PA-C [address] [address] Pain, Post Operative Social History Tobacco Use Types Packs/Day Years Used Date Smoking Tobacco: Former Cigarettes 1 10 0 02/17/1982 - 08/02/1998 Smokeless Tobacco: Never Alcohol Use Standard Drinks/Week Comments No 0 (1 standard drink = 0.6 oz pur e alcohol) quit 04/18/87 Sex Assigned at Date Recorded Not on file documented as of this encounter Miscellaneous Notes * Telephone Encounter - Landen Collado PA-C - 05/08/2021 4:33 PM EDT I answered all ? Reassured her * Telephone Encounter - Ning Massey - 05/08/2021 4:13 PM EDT Please call pt. Re: post-op shoulder pain. documented in this encounter Plan of Treatment Not on file documented as of this encounter Visit Diagnoses Not on filedocumented in this encounter Care Teams Paper Sheeter Relationship Specialty Start Date End Date Corinne Figueroa MD PCP - General Internal Medicine 05/21/19 Landen Collado PA-C [address] [place] [address] Specialist Neurosurgery 04/03/21 documented as of this encounter
--- OUTSIDE RECORDS SUMMARY | 2024-04-21 11:15 | XMS_ITS | Encounter Summary ---
Author Organization [facility] Address [address] [place] [address] Care Team Providers Care Superintendent Car Construction Name Role Phone Luis Enrique Cheek MD Primary Care Provider Corinne De La O MD Primary Care Provider Landen Josue PA-C Unavailable [phone] Reason for Visit * Reason Comments E-prescribe Rx Request Encounter Details Date Type Department Care Team Description 11/21/2017 Refill Physiatry - [place] [address] [place] [address] Christine Boyer MD [address] [place] [address] [place] [address] E-prescribe Rx Request Social History Tobacco Use Types Packs/Day Years Used Date Smoking Tobacco: Former Cigarettes 1 10 0 02/17/1982 - 08/02/1998 Smokeless Tobacco: Never Alcohol Use Standard Drinks/Week Comments No 0 (1 standard drink = 0.6 oz pur e alcohol) quit 04/18/87 Sex Assigned at Date Recorded Not on file documented as of this encounter Miscellaneous Notes * Telephone Encounter - Yolanda Nugent M.A. - 11/21/2017 1:34 PM EDT Last visit 11/14/17 Next visit, no future appt is scheduled Last refill 11/14/17 Last masspat 09/03/17 * Telephone Encounter - Renetta Tolentino L.P.N. - 11/21/2017 1:33 PM EDT Script changed to 600 mg 2 tabs tid on on 11/14/17 Pharmacy is notified of this again documented in this encounter Plan of Treatment Not on file documented as of this encounter Visit Diagnoses Diagnosis Spinal stenosis of lumbar region with neurogenic claudication Spinal stenosis, lumbar region, with neurogenic claudication Lumbar radiculitis Thoracic or lumbosacral neuritis or radiculitis, unspecified Osteoarthritis of spine with radiculopathy, lumbar region documented in this encounter Care Teams Superintendent Car Construction Relationship Specialty Start Date End Date Luis Enrique Cheek MD PCP - General Internal Medicine 09/19/15 05/20/19 Corinne Figueroa MD PCP - General Internal Medicine 05/21/19 Landen Collado PA-C [address] [place] [address] Specialist Neurosurgery 04/03/21 documented as of this encounter
--- OUTSIDE RECORDS SUMMARY | 2024-04-21 11:15 | XMS_ITS | Encounter Summary ---
Author Organization [facility] Address [address] [place] [address] Care Team Providers Care Race Steward Name Role Phone Corinne Figueroa MD Primary Care Provider Landen Josue PA-C Unavailable Reason for Visit * Reason Onset Date Comments Promotion Producer Feedback 06/28/2021 in network ortho pedics Encounter Details Date Type Department Care Team Description 06/28/[address] [facility] Medical [facility] Neurosurgery [place] [address] [id number] Landen Collado PA-C [address] [address] Promotion Producer Feedback (in network orthopedics) Social History Tobacco Use Types Packs/Day Years Used Date Smoking Tobacco: Former Cigarettes 1 10 0 02/17/1982 - 08/02/1998 Smokeless Tobacco: Never Alcohol Use Standard Drinks/Week Comments No 0 (1 standard drink = 0.6 oz pur e alcohol) quit 04/18/87 Sex Assigned at Date Recorded Not on file COVID-19 Exposure Response Date Recorded In the last 10 days, have yo u been in contact with someone who was confirmed or suspected to have Coronavirus/COVID-19? No / Unsure 06/28/2021 12:42 PM EDT documented as of this encounter Miscellaneous Notes * Telephone Encounter - Verónica Galvez - 06/28/2021 4:04 PM EDT Patient has been referred to Thiago WOODALL at Dr Hernández office AONE Dx: traumatic left shoulder injury In network order to orthopedics has been pended Thank you, Verónica Orthopedics Navigator [phone] [facility] documented in this encounter Plan of Treatment Not on file documented as of this encounter Visit Diagnoses Not on filedocumented in this encounter Care Teams Race Steward Relationship Specialty Start Date End Date Corinne Figueroa MD PCP - General Internal Medicine 05/21/19 Landen Collado PA-C [address] [place] [address] Specialist Neurosurgery 04/03/21 documented as of this encounter
--- OUTSIDE RECORDS SUMMARY | 2024-04-21 11:15 | XMS_ITS | Encounter Summary ---
Author Organization [facility] Address [address] [place] [address] Care Team Providers Care Data Integration Analyst Name Role Phone Luis Enrique Cheek MD Primary Care Provider Corinne De La O MD Primary Care Provider Landen Josue PA-C Unavailable [phone] Encounter Details Date Type Department Care Team Description 12/08/2018 [facility] Medical Records [address] [place] [address] Jamal Mir DO Social History Tobacco Use [...] on filedocumented in this encounter Care Teams Data Integration Analyst Relationship Specialty Start Date End Date Luis Enrique Cheek MD PCP - General Internal Medicine 09/19/15 05/20/19 Corinne Figueroa MD PCP - General Internal Medicine 05/21/19 Landen Collado PA-C 175 [facility] [address] [place] [address] Specialist Neurosurgery 04/03/21 documented as of this encounter
--- OUTSIDE RECORDS SUMMARY | 2024-04-21 11:15 | XMS_ITS | Encounter Summary ---
Author Organization [facility] Address [address] [place] [address] Care Team Providers Care City Driver Name Role Phone Luis Enrique Cheek MD Primary Care Provider Corinne De La O MD Primary Care Provider Landen Josue PA-C Unavailable [phone] Encounter Details Date Type Department Care Team Description 05/12/2018 [facility] Medical Records [address] [place] [address] Jamal Mir DO Social History Tobacco Use [...] on filedocumented in this encounter Care Teams City Driver Relationship Specialty Start Date End Date Luis Enrique Cheek MD PCP - General Internal Medicine 09/19/15 05/20/19 Corinne Figueroa MD PCP - General Internal Medicine 05/21/19 Landen Collado PA-C 175 [facility] [address] [place] [address] Specialist Neurosurgery 04/03/21 documented as of this encounter
--- OUTSIDE RECORDS SUMMARY | 2024-04-21 11:15 | XMS_ITS | Encounter Summary ---
Author Organization [facility] Address [address] [place] [address] Care Team Providers Care Weather Algorithm Scientist Name Role Phone Luis Enrique Cheek MD Primary Care Provider Corinne De La O MD Primary Care Provider Landen Josue PA-C Unavailable [phone] Encounter Details Date Type Department Care Team Description 09/20/2015 Transfer [facility] Medical Records [address] [place] [address] Abstract, Provider Social History Tobacco Use Types [...] on filedocumented in this encounter Care Teams Weather Algorithm Scientist Relationship Specialty Start Date End Date Luis Enrique Cheek MD PCP - General Internal Medicine 09/19/15 05/20/19 Corinne Figueroa MD PCP - General Internal Medicine 05/21/19 Landen Collado PA-C 175 [facility] [address] [place] [address] Specialist Neurosurgery 04/03/21 documented as of this encounter
--- OUTSIDE RECORDS SUMMARY | 2024-04-21 11:15 | XMS_ITS | Encounter Summary ---
Author Organization [facility] Address [address] [place] [address] Care Team Providers Care Human Services Program Specialist Name Role Phone Luis Enrique Cheek MD Primary Care Provider Luis Enrique Granados MD Primary Care Provider Luis Enrique Granados MD Primary Care Provider Corinne De La O MD Primary Care Provider Landen Josue PA-C Unavailable Reason for Visit * Reason Onset Date Comments Provider Call Back 03/03/2015 Encounter Details Date Type Department Care Team Description 03/03/2015 Telephone Adult [address] [address] Luis Enrique Cheek MD Provider Call Back Social History Tobacco Use Types Packs/Day Years Used Date Smoking Tobacco: Former Alcohol Use Standard Drinks/Week Comments Not Asked 0 (1 standard drink = 0.6 oz pur e alcohol) Sex Assigned at Date Recorded Not on file documented as of this encounter Miscellaneous Notes * Telephone Encounter - Maricruz Arteaga M.A. - 03/03/2015 10:06 AM EST Message left for patient to return my call. Pt needs an appt of she needs a refill of valtrex * Telephone Encounter - Luis Enrique Cheek - 03/03/2015 9:43 AM EST Not on problem list, will need visit * Telephone Encounter - Maricruz Arteaga M.A. - 03/03/2015 9:27 AM EST P looking for valtrex, will you fill this or does she need an appt. * Telephone Encounter - Tamara Tucker - 03/03/2015 9:14 AM EST Caller requesting call back from provider: Is the caller the patient? YES If caller is not the patient, what is the callers name? N/A Callers relationship to patient? N/A If person calling is not the patient themselves, is there a verbal release in FYI or permanent comments for this person: YES Reason for call back: Patient calling because she was called and told they refused her medication because she needed an appointment, she has seen her pcp twice last month was wondering why she would need to be seen again Caller offered to speak with the nurse for assistance: YES Response: Patient offered to speak with nurse for assistance and patient agreed. Message forwarded to nurse. documented in this encounter Plan of Treatment Not on file documented as of this encounter Visit Diagnoses Not on filedocumented in this encounter Care Teams Human Services Program Specialist Relationship Specialty Start Date End Date Luis Enrique Cheek MD PCP - General Internal Medicine 06/09/14 09/09/15 Luis Enrique Cheek MD PCP - General Internal Medicine 09/10/15 09/18/15 Luis Enrique Cheek MD PCP - General Internal Medicine 09/19/15 05/20/19 Corinne Figueroa MD PCP - General Internal Medicine 05/21/19 Landen Collado PA-C [address] [place] [address] Specialist Neurosurgery 04/03/21 documented as of this encounter
--- OUTSIDE RECORDS SUMMARY | 2024-04-21 11:15 | XMS_ITS | Encounter Summary ---
Author Organization [facility] Address [address] [place] [address] Care Team Providers Care Safe And Vault Mechanic Name Role Phone Luis Enrique Cheek MD Primary Care Provider Corinne De La O MD Primary Care Provider Landen Josue PA-C Unavailable [phone] Reason for Visit * Reason Onset Date Comments refill request 10/14/2017 Encounter Details Date Type Department Care Team Description 10/14/2017 Refill Physiatry - [address] [address] Jamal Mir DO refill request Social History [...] Telephone Encounter - Aisha Adamson M.A. - 10/14/2017 11:17 AM EDT Script was E Scribed yesterday. * Telephone Encounter - Dominique Salas - 10/14/2017 11:08 AM EDT Patient would like script to be: E-PRESCRIBED/FAXED TO PHARMACY All of the medications requested were on the CURRENT MEDS list Did you check the Pharmacy information above?: YES Is this a mail order prescription request ? NO If the refill is from a FAXED refill request what is the RX # listed on the fax? N/A Patients current insurance carrier is: [place] / [place] / Product Type: MEDICARE [id number] Patient is not sure if Dr Mir wanted to prescribe a muscle relaxer please review and advise. documented in this encounter Plan of Treatment Not on file documented as of this encounter Visit Diagnoses Diagnosis Spinal stenosis of lumbar region with neurogenic claudication Spinal stenosis, lumbar region, with neurogenic claudication Lumbar radiculitis Thoracic or lumbosacral neuritis or radiculitis, unspecified Osteoarthritis of spine with radiculopathy, lumbar region Muscle cramps Cramp of limb documented in this encounter Care Teams Safe And Vault Mechanic Relationship Specialty Start Date End Date Luis Enrique Cheek MD PCP - General Internal Medicine 09/19/15 05/20/19 Corinne Figueroa MD PCP - General Internal Medicine 05/21/19 Landen Colaldo PA-C [address] [place] [address] [place] [address] Specialist Neurosurgery 04/03/21 documented as of this encounter
--- OUTSIDE RECORDS SUMMARY | 2024-04-21 11:15 | XMS_ITS | Encounter Summary ---
Author Organization [facility] Address [address] [place] [address] Care Team Providers Care Head Esthetician Name Role Phone Luis Enrique Cheek MD Primary Care Provider Corinne De La O MD Primary Care Provider Landen Josue PA-C Unavailable [phone] Reason for Visit * Reason Comments E-prescribe Rx Request Encounter Details Date Type Department Care Team Description 03/28/2019 Refill Adult Medicine [address] [address] Una Bagley PA-C [address] [place] [address] E-prescribe Rx Request Social History Tobacco Use Types Packs/Day Years Used Date Smoking Tobacco: Former Cigarettes 1 10 0 02/17/1982 - 08/02/1998 Smokeless Tobacco: Never Alcohol Use Standard Drinks/Week Comments No 0 (1 standard drink = 0.6 oz pur e alcohol) quit 04/18/87 Sex Assigned at Date Recorded Not on file documented as of this encounter Miscellaneous Notes * Telephone Encounter - Dominique Mckeon M.A. - 03/29/2019 11:44 AM EST Lab Results Component Value Date NA 142 09/09/2016 K 4.3 09/09/2016 CO2 26.4 09/09/2016 CL 103 09/09/2016 BUN 19 09/09/2016 CREAT 1.0 09/09/2016 CA 9.3 09/09/2016 GFR > 60 09/09/2016 Pt has not been seen since 02/2017 * Telephone Encounter - Leonid Caceres - 03/29/2019 11:35 AM EST Patient would like script to be: E-PRESCRIBED/FAXED TO PHARMACY WHEN WAS THE PATIENT'S LAST APPOINTMENT IN ADULT MEDICINE? 03/12/17 WHEN WAS THE LAST TIME THE PATIENT SAW THEIR PCP? Same as above Does patient have an upcoming appointment? Letter sent to book next appointment (THE MEDICATION REQUESTED IS ON THE MED [...] N/A Patients current insurance carrier is: Payor: [facility] M[facility] / Plan: [facility] / Product Type: HMO [id number] documented in this encounter Plan of Treatment Not on file documented as of this encounter Visit Diagnoses Not on filedocumented in this encounter Care Teams Head Esthetician Relationship Specialty Start Date End Date Luis Enrique Cheek MD PCP - General Internal Medicine 09/19/15 05/20/19 Corinne Figueroa MD PCP - General Internal Medicine 05/21/19 Landen Collado PA-C [address] [place] [address] Specialist Neurosurgery 04/03/21 documented as of this encounter
--- OUTSIDE RECORDS SUMMARY | 2024-04-21 11:15 | XMS_ITS | Encounter Summary ---
Author Organization [facility] Address [address] [place] [address] Care Team Providers Care Plate Mill Hand Name Role Phone Luis Enrique Cheek MD Primary Care Provider Corinne De La O MD Primary Care Provider Landen Josue PA-C Unavailable [phone] Encounter Details Date Type Department Care Team Description 09/12/2016 [facility] Medical Records [address] [place] [address] Raeann Mota DPM Social History Tobacco Use [...] on filedocumented in this encounter Care Teams Plate Mill Hand Relationship Specialty Start Date End Date Luis Enrique Cheek MD PCP - General Internal Medicine 09/19/15 05/20/19 Corinne Figueroa MD PCP - General Internal Medicine 05/21/19 Landen Collado PA-C 175 [facility] [address] [place] [address] Specialist Neurosurgery 04/03/21 documented as of this encounter
--- OUTSIDE RECORDS SUMMARY | 2024-04-21 11:15 | XMS_ITS | Encounter Summary ---
Author Organization [facility] Address [address] [place] [address] Care Team Providers Care Worm Packer Name Role Phone Corinne Figueroa MD Primary Care Provider Landen Josue PA-C Unavailable [phone] Encounter Details Date Type Department Care Team Description 04/04/2021 [facility] Medical [facility] Neurosurgery [place] [address] [address] Slim Cervantes MD, PHD Social History Tobacco Use Types Packs/Day Years Used Date Smoking Tobacco: Former Cigarettes 1 10 0 02/17/1982 - 08/02/1998 Smokeless Tobacco: Never Alcohol Use Standard Drinks/Week Comments No 0 (1 standard drink = 0.6 oz pur e alcohol) quit 04/18/87 Sex Assigned at Date Recorded Not on file COVID-19 Exposure Response Date Recorded In the last month, have you been in contact with someone who was confirmed or suspected to have Coronavirus / COVID-19? No / Unsure 04/03/2021 10:48 AM EST documented as of this encounter Plan of Treatment Not on file documented as of this encounter Visit Diagnoses Not on filedocumented in this encounter Care Teams Worm Packer Relationship Specialty Start Date End Date Corinne Figueroa MD PCP - General Internal Medicine 05/21/19 Landen Collado PA-C [address] [address] Specialist Neurosurgery 04/03/21 documented as of this encounter
--- OUTSIDE RECORDS SUMMARY | 2024-04-21 11:15 | XMS_ITS | Encounter Summary ---
Author Organization [facility] Address [address] [place] [address] Care Team Providers Care Research Leader Name Role Phone Luis Enrique Cheek MD Primary Care Provider Corinne De La O MD Primary Care Provider Landen Josue PA-C Unavailable [phone] Encounter Details Date Type Department Care Team Description 11/01/2016 [facility] Medical Records [address] [place] [address] Deacon Ana Social History Tobacco Use Types [...] on filedocumented in this encounter Care Teams Research Leader Relationship Specialty Start Date End Date Luis Enrique Cheek MD PCP - General Internal Medicine 09/19/15 05/20/19 Corinne Figueroa MD PCP - General Internal Medicine 05/21/19 Landen Collado PA-C 175 [facility] [address] [place] [address] Specialist Neurosurgery 04/03/21 documented as of this encounter
--- OUTSIDE RECORDS SUMMARY | 2024-04-21 11:15 | XMS_ITS | Clinical Summary ---
Author Organization [facility] Address [address] [place] [address] Care Team Providers Care Web Developer Name Role Phone Corinne Figueroa MD Primary Care Provider Landen Josue PA-C Unavailable [phone] Allergies Active Allergy Reactions Severity Noted Date [...] CR 1 Tab daily. 0 11/24/2018 Active [id number] NE 50-325-40 MG OR TABS (FIORICET, ESGIC) [...] Comments Alcohol and Other Drug Abuse Daughter [place] Other Father, brother s also with CAD [...] of Vaccination per patient), 02/09/2008 Care Teams Web Developer Relationship Specialty Start Date End Date Corinne Figueroa MD PCP - General Internal Medicine 05/21/19 Landen Collado PA-Tia 175 [facility] [address] [place] [address] Specialist Neurosurgery 04/03/21
--- OUTSIDE RECORDS SUMMARY | 2024-04-21 11:16 | XMS_ITS | Encounter Summary ---
Author Organization [facility] Address [address] [place] [address] Care Team Providers Care Oracle Scm Consultant Name Role Phone Luis Enrique Cheek MD Primary Care Provider Luis Enrique Granados MD Primary Care Provider Luis Enrique Granados MD Primary Care Provider Corinne De La O MD Primary Care Provider Landen Josue PA-C Unavailable Encounter Details Date Type Department Care Team Description 06/29/2014 Release of Information Medical Records [address] [place] [id number] Abstract, Provider Social History Tobacco Use Types [...] on filedocumented in this encounter Care Teams Oracle Scm Consultant Relationship Specialty Start Date End Date Luis Enrique Cheek MD PCP - General Internal Medicine 06/09/14 09/09/15 Luis Enrique Cheek MD PCP - General Internal Medicine 09/10/15 09/18/15 Luis Enrique Cheek MD PCP - General Internal Medicine 09/19/15 05/20/19 Corinne Figueroa MD PCP - General Internal Medicine 05/21/19 Landen Collado PA-C 175 [facility] [address] [place] [address] Specialist Neurosurgery 04/03/21 documented as of this encounter
--- OUTSIDE RECORDS SUMMARY | 2024-04-21 11:16 | XMS_ITS | Encounter Summary ---
Author Organization [facility] Address [address] [place] [address] Care Team Providers Care Fuel Injection Servicer Name Role Phone Luis Enrique Cheek MD Primary Care Provider Luis Enrique Granados MD Primary Care Provider Luis Enrique Granados MD Primary Care Provider Corinne De La O MD Primary Care Provider Landen Josue PA-C Unavailable [phone] Encounter Details Date Type Department Care Team Description 07/08/2014 Controlled Substance Contract with Plan Medical Records [address] [place] [id number] Abstract, Provider Social History Tobacco Use Types [...] on filedocumented in this encounter Care Teams Fuel Injection Servicer Relationship Specialty Start Date End Date Luis Enrique Cheek MD PCP - General Internal Medicine 06/09/14 09/09/15 Luis Enrique Cheek MD PCP - General Internal Medicine 09/10/15 09/18/15 Luis Enrique Cheek MD PCP - General Internal Medicine 09/19/15 05/20/19 Corinne Figueroa MD PCP - General Internal Medicine 05/21/19 Landen Collado PA-C 175 [facility] [address] [place] [address] Specialist Neurosurgery 04/03/21 documented as of this encounter
--- OUTSIDE RECORDS SUMMARY | 2024-04-21 11:16 | XMS_ITS | Patient Health Record ---
Author Organization [facility] Address [address] [facility] [address] [place] [address] Care Team Providers Care Siphon Operator Name Role Phone Corinne Figueroa Primary Care [...] Once a day Not-Taking Cholecalciferol Not- Taking Jsxrdfrcau-DVRR-Fxtxlwar 50-325-40 MG 1 tablet as needed Orally every 4 hrs Active Aspirin 81 MG 1 tablet Orally Once a day Not-Taking Lidocaine 5 % 1 patch remove after 12 hours Externally Active Calcium Citrate + D3 Not-Taking Multivitamin Active Qvar Not-Taking SEROquel XR 200 MG 1 tablet in the evening Orally Once a day 100 MG Active Nasal Zel[place] Active Cyanocobalamin 1000 MCG 1 tablet Orally [...] Problem Status W/U Status Risk Notes Problem [id number] Pain due to bone fixation device, subsequent [...]
--- OUTSIDE RECORDS SUMMARY | 2024-04-21 11:16 | XMS_ITS | Encounter Summary ---
Author Organization [facility] Address [address] [place] [address] Care Team Providers Care Chucking And Sawing Machine Operator Name Role Phone Corinne Figueroa MD Primary Care Provider Landen Josue PA-C Unavailable [phone] Encounter Details Date Type Department Care Team Description 06/06/2020 Typing Secretary Report Medical Records [address] [place] [address] Abstract, Provider Social History Tobacco Use Types [...] on filedocumented in this encounter Care Teams Chucking And Sawing Machine Operator Relationship Specialty Start Date End Date Corinne Figueroa MD PCP - General Internal Medicine 05/21/19 Landen Collado PA-C 175 [facility] [address] [place] [address] Specialist Neurosurgery 04/03/21 documented as of this encounter
--- OUTSIDE RECORDS SUMMARY | 2024-04-21 11:16 | XMS_ITS | Encounter Summary ---
Author Organization [facility] Address [address] [place] [address] Care Team Providers Care Reprographics Associate Name Role Phone Luis Enrique Cheek MD Primary Care Provider Corinne De La O MD Primary Care Provider Landen Josue PA-C Unavailable [phone] Encounter Details Date Type Department Care Team Description 02/01/2016 Lathe Tender Report Medical Records [address] [place] [address] Tabatha Henderson Social History Tobacco Use Types [...] on filedocumented in this encounter Care Teams Reprographics Associate Relationship Specialty Start Date End Date Luis Enrique Cheek MD PCP - General Internal Medicine 09/19/15 05/20/19 Corinne Figueroa MD PCP - General Internal Medicine 05/21/19 Landen Collado PA-C 175 [facility] [address] [place] [address] Specialist Neurosurgery 04/03/21 documented as of this encounter
--- OUTSIDE RECORDS SUMMARY | 2024-04-21 11:16 | XMS_ITS | Encounter Summary ---
Author Organization [facility] Address [address] [place] [address] Care Team Providers Care Power Chisel Operator Name Role Phone Corinne Figueroa MD Primary Care Provider Landen Josue PA-C Unavailable [phone] Reason for Visit * Reason Comments E-prescribe Rx Request Encounter Details Date Type Department Care Team Description 11/18/2019 Refill Physiatry - [place] [address] [place] [address] Jamal Mir DO E-prescribe Rx Request Social [...] limb documented in this encounter Care Teams Power Chisel Operator Relationship Specialty Start Date End Date Corinne Figueroa MD PCP - General Internal Medicine 05/21/19 Landen Collado PA-C [address] [place] [address] Specialist Neurosurgery 04/03/21 documented as of this encounter
--- OUTSIDE RECORDS SUMMARY | 2024-04-21 11:16 | XMS_ITS | Encounter Summary ---
Author Organization [facility] Address [address] [place] [address] Care Team Providers Care Bindery Operator Name Role Phone Luis Enrique Cheek MD Primary Care Provider Luis Enrique Granados MD Primary Care Provider Luis Enrique Granados MD Primary Care Provider Corinne De La O MD Primary Care Provider Landen Josue PA-C Unavailable [phone] Encounter Details Date Type Department Care Team Description 08/30/2015 Transfer Records Medical Records [address] [place] [address] Abstract, Provider Social History Tobacco Use Types [...] 2015 9:37 AM Transfer records received from [facility] sent to Dr.Barbara Alvarez/[facility] dept forabstracting. documented in this encounter Plan of Treatment Not on file documented as of this encounter Visit Diagnoses Not on filedocumented in this encounter Care Teams Bindery Operator Relationship Specialty Start Date End Date Luis Enrique Cheek MD PCP - General Internal Medicine 06/09/14 09/09/15 Luis Enrique Cheek MD PCP - General Internal Medicine 09/10/15 09/18/15 Luis Enrique Cheek MD PCP - General Internal Medicine 09/19/15 05/20/19 Corinne Figueroa MD PCP - General Internal Medicine 05/21/19 Landen Collado PA-C [address] [place] [address] Specialist Neurosurgery 04/03/21 documented as of this encounter
--- OUTSIDE RECORDS SUMMARY | 2024-04-21 11:16 | XMS_ITS | Encounter Summary ---
Author Organization [facility] Address [address] [place] [address] Care Team Providers Care Freelance Designer Name Role Phone Corinne Figueroa MD Primary Care Provider Landen Josue PA-C Unavailable [phone] Encounter Details Date Type Department Care Team Description 03/22/2020 Child Welfare Social Worker Report Medical Records [address] [place] [address] Abstract, Provider Social History Tobacco Use Types [...] on filedocumented in this encounter Care Teams Freelance Designer Relationship Specialty Start Date End Date Corinne Figueroa MD PCP - General Internal Medicine 05/21/19 Landen Collado PA-C [address] [facility] [address] [place] [address] Specialist Neurosurgery 04/03/21 documented as of this encounter
--- OUTSIDE RECORDS SUMMARY | 2024-04-21 11:16 | XMS_ITS | Encounter Summary ---
Author Organization [facility] Address [address] [place] [address] Care Team Providers Care Technical Maintenance Specialist Name Role Phone Luis Enrique Cheek MD Primary Care Provider Corinne De La O MD Primary Care Provider Landen Josue PA-C Unavailable [phone] Encounter Details Date Type Department Care Team Description 12/06/2015 Release of Information Medical Records [address] [place] [id number] Abstract, Provider Social History Tobacco Use Types [...] on filedocumented in this encounter Care Teams Technical Maintenance Specialist Relationship Specialty Start Date End Date Luis Enrique Cheek MD PCP - General Internal Medicine 09/19/15 05/20/19 Corinne Figueroa MD PCP - General Internal Medicine 05/21/19 Landen Collado PA-C [address] [facility] [address] [place] [address] Specialist Neurosurgery 04/03/21 documented as of this encounter
== END 2024-04-21 10:45 | disposition home or self-care (01) ==
PROVIDERS: PCP Internal Medicine; Visit Provider Physician Assistant Surgical
DX: Z71.3 Dietary counseling and surveillance (principal); Z90.3 Acquired absence of stomach [part of]
CPT/HCPCS: 99214; G2211

== ENCOUNTER → 2024-04-21 09:49 | Outpatient (BNVA) | payer OTHER, SELFPAY | PROVIDERS: PCP Internal Medicine; Visit Provider Physician Assistant Surgical | DX: M79.652 Pain in left thigh (principal); L90.5 Scar conditions and fibrosis of skin; Z98.84 Bariatric surgery status; Z98.890 Other specified postprocedural states | CPT/HCPCS: 99212 ==

== ENCOUNTER 2024-05-05 08:11 | Outpatient (AMB) | payer OTHER, SELFPAY ==
--- NOTE | 2024-05-05 08:19 | MHC.OFFVIS ---
Vital Signs 05/05/24 08:20 Height 5 ft 7 in Weight 145 lb BMI 22.7 BP 117/58 L Blood Pressure Location Lt brachial Position Sitting Respiration 16 Pulse 77 Pulse Source Pulse Oximeter Pulse Oximetry (%) 98 Oxygen Delivery Method Room Air Intake Visit Reasons: RIGHT THERAPEUTIC SIJ INJECTION Allergies Iodinated Contrast Media [Iodinated Contrast Media - IV Dye] Allergy (Intermediate, Verified 05/05/24 08:22) HIVES ketorolac [From Toradol] Allergy (Intermediate, Verified 05/05/24 08:22) localized redness/swelling Medication List - Last Reconciled 05/05/24 by Tierra Tavarez, BROOKS acyclovir 5% 1 appl topical .q 4 hrs albuterol sulfate 90 mcg/actuation 2 puffs inhalation Q4-6H PRN brimonidine 0.2% 1 drp ophthalmic (eye) BID nofmgxdclb-uxvfgwvymwydj-jocl 50-325-40 mg 1 tab PO .QD PRN clonazepam 1 mg PO BID divalproex ER (Depakote ER) 500 mg PO BID fluticasone furoate-vilanterol 100-25 mcg/dose 1 inh inhalation DAILY fluticasone propionate 50 mcg/actuation 1 spray intranasal DAILY PRN gabapentin (Neurontin) 600 mg PO TID 30 days latanoprost 0.005% drps ophthalmic (eye) paroxetine HCl 40 mg PO BEDTIME paroxetine HCl 10 mg PO BEDTIME quetiapine 100 mg PO BEDTIME quetiapine 25 mg PO BID PRN valacyclovir (Valtrex) 2,000 mg (2 x 1 gram) PO Q12H HPI Comments Details: Therese is back in my office today after repeat therapeutic right sacroiliac joint injection. It has been 2 weeks since the injection. She reports no help from the injection at all. The injection was done without contrast and nevertheless if sacroiliac joint would be her pain generators even periarticular injection would help her pain more significant that she reports today. Attention was attracted today that her pain is aggravated by rotation of the hip lateral and medial. I offered her to perform right intra-articular hip steroid injection. Patient agreed to go for the procedure. She is allergic to iodine contrast so I will request [facility] to perform the adjusted hip injection for this patient. She also had all procedure on her hip and thigh on the right 20 years ago. Unfortunately records of this hospital do not go that far. If she has any information about this procedure at home I recommended her to bring this to me. Prior: She is status post caudal BETSEY and right GTB injection on 08/21/22 and Right Therapeutic SIJ injection on 07/24/22 . Caudal BETSEY provided 80% pain relief for radicular back symptoms with improvement in her daily functions and activities. That lasted 3 weeks only. I cannot consider caudal BETSEY repeatin the future for her. Now she is losing eye site on the right eye and her production broaching machine operator forbade her to have any steroid injections. the therapeutic injections are impossible to treat her pain in the future. MBB resulted in no pain improvement. I think neuromodulation would be very good thing to do for this patient. MBB resulted in no pain improvement. History of axial pain and pain exacerbated with prolonged sitting give the makes me think about vertebrogenic pain. She went for MRI which demonstrated vertebral Modic type changes. However given the choice between spinal cord stimulator and intrathecal pain pump pain relief for this patient which do not require steroid administration and intercept procedure which might require significant doses of steroids I decided to proceed with neuromodulation as Nevro SCS and I DDD [employer]. Nevro SCS was tried on her. She dislodged her electrode due to severe heaving, nausea and vomiting at least 1 full vertebral body down however the top electrode still was positioned at the top of T9 which could potentially give us significant pain relief due to stimulation. However patient denied any help from stimulation. Intrathecal pain pump was discussed in the past with the patient however she is reluctant to go for the procedure. [facility] Medical History Seizure disorder Syncope Cervical spondylosis with radiculopathy Cervical radiculopathy Cervical strain Neck pain Hematoma following procedure Calf pain Incisional pain Postoperative bleeding from incision Cellulitis Anemia Anxiety with depression Fatty liver Back pain Arthritis Abscess or cellulitis of knee Skin laxity Hyperlipidemia GERD (gastroesophageal reflux disease) COVID-19 vaccine administered Postlaminectomy syndrome Bunion of left foot Postconcussion syndrome Labral tear of right hip joint Spinal stenosis Colon polyps Allergic rhinitis Herpes Chronic sinusitis Depression Migraines Asthma Hypotension Malabsorption due to intolerance, not elsewhere classified Surgical History Hx of spinal fusion S/P plastic surgery S/P panniculectomy History of hip surgery History of endometrial ablation S/P tonsillectomy S/P bilateral foot surgery History of appendectomy H/O colonoscopy H/O endoscopy S/P laparoscopic sleeve gastrectomy H/O laminectomy Family History Father No problems noted. Mother Cervical spine tumor Brother No problems noted. Brother No problems noted. Brother No problems noted. Brother No problems noted. Sister Mental health disorder Son No problems noted. Daughter No problems noted. Social History Household Members: Spouse Housing: House Are you a primary care services manager to a significant other at home: No Do you presently have visiting nurse or other home services: No Unable to assess alcohol history related to: Unknown Alcohol intake: former Comment: count correct Patient Tobacco Use Status: Never used Tobacco e-Cigarette/Vaping Use: Never Used Second Hand Smoke Exposure: No Substance Use Type: Marijuana Advance Directives Date on File: 10/28/23 service: No Current occupational status: disabled Cognitive needs: No Hearing needs: No Vision needs: No Review of Systems Const All systems reviewed & are unremarkable except as noted in HPI and below ENT Reports Normal hearing present Neuro Reports Normal hearing present and Denies confusion Psych Denies confusion Physical Exam Vital Signs: Last Vital Signs Pulse 77 05/05/24 08:20 Resp 16 05/05/24 08:20 BP 117/58 L 05/05/24 08:20 Pulse Ox 98 05/05/24 08:20 Oxygen Delivery Method Room Air 05/05/24 08:20 BMI result Body Mass Index 22.7 Const General: cooperative, alert and awake; No confusion Orientation/consciousness: patient oriented x3 and No confusion Resp Effort & Inspection: able to speak in complete sentences, no audible wheezes and no cough Back/Spine/Pelvis Other: Loading test is positive bilaterally tenderness on palpation on lower lumbar and mid lumbar spine, paraspinal regions are less tender on palpation in the area however also cause significant tenderness. Flexing forward and flexing backwards both aggravate pain with flexing backwards to be more aggravating than flexing forward. Pillo test, Gaenslen test, pelvic compression and pelvic distraction test, 14 finger test are all positive on the right. Neuro General: patient oriented x3 and No confusion Cranial nerves: Yes Normal hearing present Cognition (Neuro): normal cognition Extrem Other: Lateral and medial rotation of the right hip causes discomfort in the groin more lateral than medial. Psych Mental Status: mental status grossly normal Speech and movement: Clear speech present Affect: normal affect Attitude: cooperative Thought process: Normal thought process present Thought content: Normal thought content present and No Depressive thoughts present Insight: Good insight present (Psych) Judgement: Good judgement present (Psych) Assessment & Plan Assessment & Plan (1) Trochanteric bursitis of right hip: Code(s): M70.61 - Trochanteric bursitis, right hip Category: Medical (2) Lumbosacral spondylosis with radiculopathy: Code(s): M47.27 - Other spondylosis with radiculopathy, lumbosacral region Category: Medical (3) Right hip pain: Code(s): M25.551 - Pain in right hip Category: Medical (4) Failed back syndrome, lumbar: Code(s): M96.1 - Postlaminectomy syndrome, not elsewhere classified Category: Medical Plan: (5) Chronic pain syndrome: Code(s): G89.4 - Chronic pain syndrome Category: Medical (6) Vertebrogenic low back pain: Code(s): M54.51 - Vertebrogenic low back pain Category: Medical (7) Spondylosis of lumbar region without myelopathy or radiculopathy: Code(s): M47.816 - Spondylosis without myelopathy or radiculopathy, lumbar region Category: Medical (8) Osteoarthritis of right hip: Code(s): M16.11 - Unilateral primary osteoarthritis, right hip Category: Medical Plan Patient is status post caudal BETSEY and right GTB injection on 08/21/22 and Right Therapeutic SIJ injection on 07/24/22 . Caudal BETSEY provided 80% pain relief for radicular back symptoms with improvement in her daily functions and activities. That lasted 3 weeks only. Sacroiliac joint injection which was performed 2 weeks ago on 04/18/2024 was not effective to control her pain. Attention was attracted today for pain in the groin with hip rotation. I recommended her to have intra-articular right hip steroid injection. She is allergic to iodine contrast so we will perform it under [facility] image. The injectate will contain Decadron, this is recommendation of her production broaching machine operator. She tried Nevro SCS in the past it did not alleviate her pain. Her production broaching machine operator agreed to use short-acting steroid injections Patient Instructions: I here by testify that I spent 34 minutes in conversation with this patient as well as planning her care and organizing this note. Coding Level of Care Code Est Pt Level 4 (08938) Diagnoses Trochanteric bursitis of right hip M70.61 Lumbosacral spondylosis with radiculopathy M47.27 Right hip pain M25.551 Failed back syndrome, lumbar M96.1 Chronic pain syndrome G89.4 Vertebrogenic low back pain M54.51 Spondylosis of lumbar region without myelopathy or radiculopathy M47.816 Osteoarthritis of right hip M16.11
[2024-05-05 08:20] VITALS: BP 117/58; PULSE 77; RESP 16; O2SAT 98; BMI 22.7
--- OUTSIDE RECORDS SUMMARY | 2024-05-05 08:23 | XMS_ITS | Encounter Summary ---
Author Organization [facility] Address [address] [place] [address] Care Team Providers Care Real Estate Clerk Name Role Phone Corinne Figueroa MD Primary Care Provider Landen Josue PA-C Unavailable [phone] Reason for Visit * Reason Onset Date Comments Pulp Machine Operator Feedback 06/28/2021 in network ortho pedics Encounter Details Date Type Department Care Team Description 06/28/2021 Telephone [facility] Medical [facility] Neurosurgery [place] [address] [id number] Landen Collado PA-C [address] [address] Pulp Machine Operator Feedback (in network orthopedics) Social History Tobacco [...] been pended Thank you, [facility] Navigator [phone] [facility] documented in this encounter Plan of Treatment Not on file documented as of this encounter Visit Diagnoses Not on filedocumented in this encounter Care Teams Real Estate Clerk Relationship Specialty Start Date End Date Corinne Figueroa MD PCP - General Internal Medicine 05/21/19 Landen Collado PA-C [address] [place] [address] Specialist Neurosurgery 04/03/21 documented as of this encounter
--- OUTSIDE RECORDS SUMMARY | 2024-05-05 08:24 | XMS_ITS | Encounter Summary ---
Author Organization [facility] Address [address] [place] [address] Care Team Providers Care Measurer Machine Name Role Phone Luis Enrique Cheek MD Primary Care Provider Corinne De La O MD Primary Care Provider Landen Josue PA-C Unavailable [phone] Reason for Visit * Reason Onset Date Comments Testing 02/27/2017 Ct Scan Abdomen Encounter Details Date Type Department Care Team Description 02/27/2017 Telephone Adult Medicine B - [place] [address] [place] [address] Luis Enrique Cheek MD Testing (Ct Scan [...] Dr Cheek, [place] [address] [address] Scan of Abd. The Insurance has denied code [id number] but is willing to approve code [id number]. A new order is needed for code [id number] if you are in agreement with this request. Thanks, Jaida Cobb Auth Dept. documented in this encounter Plan of Treatment Not on file documented as of this encounter Visit Diagnoses Diagnosis Right upper quadrant abdominal pain- Primary Abdominal pain, right upper quadrant documented in this encounter Care Teams Measurer Machine Relationship Specialty Start Date End Date Luis Enrique Cheek MD PCP - General Internal Medicine 09/19/15 05/20/19 Corinne Figueroa MD PCP - General Internal Medicine 05/21/19 Landen Collado PA-C [address] [place] [address] Specialist Neurosurgery 04/03/21 documented as of this encounter
--- OUTSIDE RECORDS SUMMARY | 2024-05-05 08:24 | XMS_ITS | Clinical Summary ---
Author Organization [facility] Address [address] [place] [address] Care Team Providers Care Cosmetics Counter Manager Name Role Phone Corinne Figueroa MD Primary Care Provider Landen Josue PA-C Unavailable [phone] Allergies Active Allergy Reactions Severity Noted Date [...] CR 1 Tab daily. 0 11/24/2018 Active [id number]-ITSP-RYQPHS NE 50-325-40 MG OR TABS (FIORICET, ESGIC) [...] Comments Alcohol and Other Drug Abuse Daughter [place] Other Father, brother s also with CAD [...] of Vaccination per patient), 02/09/2008 Care Teams Cosmetics Counter Manager Relationship Specialty Start Date End Date Corinne Figueroa MD PCP - General Internal Medicine 05/21/19 Landen Collado PA-Tia [address] [facility] [address] [place] [address] Specialist Neurosurgery 04/03/21
--- OUTSIDE RECORDS SUMMARY | 2024-05-05 08:24 | XMS_ITS | Encounter Summary ---
Author Organization [facility] Address [address] [place] [address] Care Team Providers Care Director Craft Center Name Role Phone Luis Enrique Cheek MD Primary Care Provider Corinne De La O MD Primary Care Provider Landen Josue PA-C Unavailable [phone] Reason for Visit * Reason Comments E-prescribe Rx Request Encounter Details Date Type Department Care Team Description 02/25/2017 Refill Adult Medicine [address] [address] Luis Enrique Cheek MD E-prescribe Rx Request [...] NO Patients current insurance carrier is: Payor: [facility] MEDICAID / Plan: [facility] MEDICAID HMO $0 SAVANNAH / Product Type: HMO [id number] documented in this encounter Plan of Treatment Not on file documented as of this encounter Visit Diagnoses Not on filedocumented in this encounter Care Teams Director Craft Center Relationship Specialty Start Date End Date Luis Enrique Cheek MD PCP - General Internal Medicine 09/19/15 05/20/19 Corinne Figueroa MD PCP - General Internal Medicine 05/21/19 Landen Collado PA-C [address] [place] [address] Specialist Neurosurgery 04/03/21 documented as of this encounter
--- OUTSIDE RECORDS SUMMARY | 2024-05-05 08:24 | XMS_ITS | Encounter Summary ---
Author Organization [facility] Address [address] [place] [address] Care Team Providers Care Terminal Operations Manager Name Role Phone Corinne Figueroa MD Primary Care Provider Landen Josue PA-C Unavailable [phone] Encounter Details Date Type Department Care Team Description 04/04/2021 Release of Information Medical Records [address] [place] [id number] Abstract, Provider Social History Tobacco Use Types [...] on filedocumented in this encounter Care Teams Terminal Operations Manager Relationship Specialty Start Date End Date Corinne Figueroa MD PCP - General Internal Medicine 05/21/19 Landen Collado PA-C [address] [facility] [address] [place] [address] Specialist Neurosurgery 04/03/21 documented as of this encounter
--- OUTSIDE RECORDS SUMMARY | 2024-05-05 08:25 | XMS_ITS | Encounter Summary ---
Author Organization [facility] Address [address] [place] [address] Care Team Providers Care Lead Programmer Analyst Name Role Phone Corinne Figueroa MD Primary Care Provider Landen Josue PA-C Unavailable Encounter Details Date Type Department Care Team Description 05/04/2021 Orders Only [facility] Medical [facility] Neurosurgery [place] [address] [phone] Landen Collado PA-C [address] [address] Social History Tobacco Use Types Packs/Day Years [...] on filedocumented in this encounter Care Teams Lead Programmer Analyst Relationship Specialty Start Date End Date Corinne Figueroa MD PCP - General Internal Medicine 05/21/19 Landen Collado PA-C [address] [address] Specialist Neurosurgery 04/03/21 documented as of this encounter
--- OUTSIDE RECORDS SUMMARY | 2024-05-05 08:25 | XMS_ITS | Encounter Summary ---
Author Organization [facility] Address [address] [place] [address] Care Team Providers Care Tow Motor Driver Name Role Phone Corinne Figueroa MD Primary Care Provider Landen Josue PA-C Unavailable [phone] Reason for Visit * Reason Onset Date Comments Pain, Post Operative 05/08/2021 Encounter Details Date Type Department Care Team Description 05/08/2021 Telephone [facility] Neurosurgery [place] [address] [facility] [address] [place] [phone] Landen Collado PA-C [address] [address] Pain, Post Operative Social History Tobacco Use [...] on filedocumented in this encounter Care Teams Tow Motor Driver Relationship Specialty Start Date End Date Corinne Figueroa MD PCP - General Internal Medicine 05/21/19 Landen Collado PA-C [address] [place] [address] Specialist Neurosurgery 04/03/21 documented as of this encounter
--- OUTSIDE RECORDS SUMMARY | 2024-05-05 08:26 | XMS_ITS | Encounter Summary ---
Author Organization [facility] Address [address] [place] [address] Care Team Providers Care Audioprosthologist Name Role Phone Luis Enrique Cheek MD Primary Care Provider Corinne De La O MD Primary Care Provider Landen Josue PA-C Unavailable [phone] Encounter Details Date Type Department Care Team Description 03/21/2017 Release of Information Medical Records [address] [place] [address] Abstract, Provider Social History Tobacco Use Types [...] on filedocumented in this encounter Care Teams Audioprosthologist Relationship Specialty Start Date End Date Luis Enrique Cheek MD PCP - General Internal Medicine 09/19/15 05/20/19 Corinne Figueroa MD PCP - General Internal Medicine 05/21/19 Landen Collado PA-C [address] [facility] [address] [place] [address] Specialist Neurosurgery 04/03/21 documented as of this encounter
--- OUTSIDE RECORDS SUMMARY | 2024-05-05 08:26 | XMS_ITS | Encounter Summary ---
Author Organization [facility] Address [address] [place] [address] Care Team Providers Care Teller Head Name Role Phone Luis Enrique Cheek MD Primary Care Provider Corinne De La O MD Primary Care Provider Landen Josue PA-C Unavailable [phone] Reason for Visit * Reason Comments E-prescribe Rx Request Encounter Details Date Type Department Care Team Description 11/13/2017 Refill Adult Medicine [address] [address] Luis Enrique Cheek MD E-prescribe Rx Request [...] appointment? No patient states no longer with [facility] (THE MEDICATION REQUESTED IS ON THE MED LIST ABOVE) All of the medications requested were on the CURRENT MEDS list No longer Patient of [facility] Did you check the Pharmacy information above?: YES Patient wants: 30 -day supply Is this a mail order prescription request ? NO If the refill is from a FAXED refill request what is the RX # listed on the fax? N/A Patients current insurance carrier is: [place] / Plan: MEDICARE-[employer] / Product Type: MEDICARE [id number] documented in this encounter Plan of Treatment Not on file documented as of this encounter Visit Diagnoses Not on filedocumented in this encounter Care Teams Teller Head Relationship Specialty Start Date End Date Luis Enrique Cheek MD PCP - General Internal Medicine 09/19/15 05/20/19 Corinne Figueroa MD PCP - General Internal Medicine 05/21/19 Landen Collado PA-C [address] [place] [address] [place] [address] Specialist Neurosurgery 04/03/21 documented as of this encounter
--- OUTSIDE RECORDS SUMMARY | 2024-05-05 08:26 | XMS_ITS | Encounter Summary ---
Author Organization [facility] Address [address] [place] [address] Care Team Providers Care Metal Miner Blasting Name Role Phone Luis Enrique Cheek MD Primary Care Provider Corinne De La O MD Primary Care Provider Landen Josue PA-C Unavailable [phone] Encounter Details Date Type Department Care Team Description 05/02/2016 [facility] Medical Records [address] [place] [address] Abstract, Provider Social History Tobacco Use Types [...] on filedocumented in this encounter Care Teams Metal Miner Blasting Relationship Specialty Start Date End Date Luis Enrique Cheek MD PCP - General Internal Medicine 09/19/15 05/20/19 Corinne Figueroa MD PCP - General Internal Medicine 05/21/19 Landen Collado PA-C 175 [facility] [address] [place] [address] Specialist Neurosurgery 04/03/21 documented as of this encounter
--- OUTSIDE RECORDS SUMMARY | 2024-05-05 08:26 | XMS_ITS | Encounter Summary ---
Author Organization [facility] Address [address] [place] [address] Care Team Providers Care Operational Risk Consultant Name Role Phone Luis Enrique Cheek MD Primary Care Provider Luis Enrique Granados MD Primary Care Provider Luis Enrique Granados MD Primary Care Provider Corinne De La O MD Primary Care Provider Landen Josue PA-C Unavailable [phone] Encounter Details Date Type Department Care Team Description 02/21/2015 Garment Supervisor Report Medical Records [address] [place] [address] Selwyn Oliva Social History Tobacco Use Types [...] on filedocumented in this encounter Care Teams Operational Risk Consultant Relationship Specialty Start Date End Date Luis Enrique Cheek MD PCP - General Internal Medicine 06/09/14 09/09/15 Luis Enrique Cheek MD PCP - General Internal Medicine 09/10/15 09/18/15 Luis Enrique Cheek MD PCP - General Internal Medicine 09/19/15 05/20/19 Corinne Figueroa MD PCP - General Internal Medicine 05/21/19 Landen Collado PA-C 175 [facility] [address] [place] [address] Specialist Neurosurgery 04/03/21 documented as of this encounter
--- OUTSIDE RECORDS SUMMARY | 2024-05-05 08:26 | XMS_ITS | Encounter Summary ---
Author Organization [facility] Address [address] [place] [address] Care Team Providers Care Supervisor Dry Paste Name Role Phone Luis Enrique Cheek MD Primary Care Provider Luis Enrique Granados MD Primary Care Provider Luis Enrique Granados MD Primary Care Provider Corinne De La O MD Primary Care Provider Landen Josue PA-C Unavailable [phone] Encounter Details Date Type Department Care Team Description 01/23/2015 [facility] Medical Records [address] [place] [address] Pradeep Hennessy MD Social History Tobacco Use [...] on filedocumented in this encounter Care Teams Supervisor Dry Paste Relationship Specialty Start Date End Date Luis Enrique Cheek MD PCP - General Internal Medicine 06/09/14 09/09/15 Luis Enrique Cheek MD PCP - General Internal Medicine 09/10/15 09/18/15 Luis Enrique Cheek MD PCP - General Internal Medicine 09/19/15 05/20/19 Corinne Figueroa MD PCP - General Internal Medicine 05/21/19 Landen Collado PA-C 034 [facility] [address] [place] [address] Specialist Neurosurgery 04/03/21 documented as of this encounter
--- OUTSIDE RECORDS SUMMARY | 2024-05-05 08:27 | XMS_ITS | Encounter Summary ---
Author Organization [facility] Address [address] [place] [address] Care Team Providers Care Patient Financial Counselor Name Role Phone Luis Enrique Cheek MD Primary Care Provider Corinne De La O MD Primary Care Provider Landen Josue PA-C Unavailable [phone] Reason for Visit * Reason Onset Date Comments refill request 04/15/2016 Encounter Details Date Type Department Care Team Description 04/15/2016 Refill Adult Medicine [address] [address] Luis Enrique Cheek MD refill request Social [...] on filedocumented in this encounter Care Teams Patient Financial Counselor Relationship Specialty Start Date End Date Luis Enrique Cheek MD PCP - General Internal Medicine 09/19/15 05/20/19 Corinne Figueroa MD PCP - General Internal Medicine 05/21/19 Landen Collado PA-C [address] [place] [address] Specialist Neurosurgery 04/03/21 documented as of this encounter
--- OUTSIDE RECORDS SUMMARY | 2024-05-05 08:27 | XMS_ITS | Encounter Summary ---
Author Organization [facility] Address [address] [place] [address] Care Team Providers Care Hearing And Speech Assistant Name Role Phone Luis Enrique Cheek MD Primary Care Provider Corinne De La O MD Primary Care Provider Landen Josue PA-C Unavailable [phone] Encounter Details Date Type Department Care Team Description 03/15/2016 [facility] Medical Records [address] [place] [address] Torsten Samano MD Social History Tobacco Use [...] on filedocumented in this encounter Care Teams Hearing And Speech Assistant Relationship Specialty Start Date End Date Luis Enrique Cheek MD PCP - General Internal Medicine 09/19/15 05/20/19 Corinne Figueroa MD PCP - General Internal Medicine 05/21/19 Landen Collado PA-C 175 [facility] [address] [place] [address] Specialist Neurosurgery 04/03/21 documented as of this encounter
--- OUTSIDE RECORDS SUMMARY | 2024-05-05 08:27 | XMS_ITS | Encounter Summary ---
Author Organization [facility] Address [address] [place] [address] Care Team Providers Care Wrecker Driver Name Role Phone Luis Enrique Cheek MD Primary Care Provider Luis Enrique Granados MD Primary Care Provider Luis Enrique Granados MD Primary Care Provider Corinne De La O MD Primary Care Provider Landen Josue PA-C Unavailable [phone] Reason for Visit * Reason Onset Date Comments Provider Call Back 03/03/2015 Encounter Details Date Type Department Care Team Description 03/03/2015 Telephone Adult [address] [address] Luis Enrique Cheek MD Provider Call Back [...] on filedocumented in this encounter Care Teams Wrecker Driver Relationship Specialty Start Date End Date Luis Enrique Cheek MD PCP - General Internal Medicine 06/09/14 09/09/15 Luis Enrique Cheek MD PCP - General Internal Medicine 09/10/15 09/18/15 Luis Enrique Cheek MD PCP - General Internal Medicine 09/19/15 05/20/19 Corinne Figueroa MD PCP - General Internal Medicine 05/21/19 Landen Collado PA-C [address] [place] [address] Specialist Neurosurgery 04/03/21 documented as of this encounter
--- OUTSIDE RECORDS SUMMARY | 2024-05-05 08:28 | XMS_ITS | Encounter Summary ---
Author Organization [facility] Address [address] [place] [address] Care Team Providers Care Process Description Writer Name Role Phone Luis Enrique Cheek MD Primary Care Provider Corinne De La O MD Primary Care Provider Landen Josue PA-C Unavailable Encounter Details Date Type Department Care Team Description 09/21/2018 Refill Adult Medicine [address] [address] Luis Enrique Cheek MD Social History Tobacco Use Types Packs/Day Years Used Date Smoking Tobacco: Former Cigarettes 1 10 0 02/17/1982 - 08/02/1998 Smokeless Tobacco: Never Alcohol Use Standard Drinks/Week Comments No 0 (1 standard drink = 0.6 oz pur e alcohol) quit 04/18/87 Sex Assigned at Date Recorded Not on file documented as of this encounter Miscellaneous Notes * Telephone Encounter - Brenda Auguste M.A. - 09/22/2018 9:27 AM EDT Last seen 2018 * Telephone Encounter - Sandra Velazco - 09/21/2018 12:44 PM EDT Patient would like script to be: E-PRESCRIBED/FAXED TO PHARMACY WHEN WAS THE PATIENT'S LAST APPOINTMENT IN ADULT MEDICINE? 03/12/17 WHEN WAS THE LAST TIME THE PATIENT SAW THEIR PCP? Same as above Does patient have an upcoming appointment? [facility]ill [facility]. Appt due now (THE MEDICATION REQUESTED IS ON THE MED LIST ABOVE) All of the medications requested were on the CURRENT MEDS list Did you check the Pharmacy information above?: YES Patient wants: 90 -day supply Is this a mail order prescription request ? NO If the refill is from a FAXED refill request what is the RX # listed on the fax? N/A Patients current insurance carrier is: [facility] / Plan: [facility] / Product Type: HMO [id number] documented in this encounter Plan of Treatment Not on file documented as of this encounter Visit Diagnoses Not on filedocumented in this encounter Care Teams Process Description Writer Relationship Specialty Start Date End Date Luis Enrique Cheek MD PCP - General Internal Medicine 09/19/15 05/20/19 Corinne Figueroa MD PCP - General Internal Medicine 05/21/19 Landen Collado PA-C [address] [place] [address] Specialist Neurosurgery 04/03/21 documented as of this encounter
--- OUTSIDE RECORDS SUMMARY | 2024-05-05 08:28 | XMS_ITS | Encounter Summary ---
Author Organization [facility] Address [address] [place] [address] Care Team Providers Care Bicycle Messenger Name Role Phone Luis Enrique Cheek MD Primary Care Provider Corinne De La O MD Primary Care Provider Landen Josue PA-C Unavailable [phone] Reason for Visit * Reason Comments E-prescribe Rx Request Encounter Details Date Type Department Care Team Description 03/08/2018 Refill Physiatry - [place] [address] [place] [address] Jamal Mir DO E-prescribe Rx Request Social [...] limb documented in this encounter Care Teams Bicycle Messenger Relationship Specialty Start Date End Date Luis Enrique Cheek MD PCP - General Internal Medicine 09/19/15 05/20/19 Corinne Figueroa MD PCP - General Internal Medicine 05/21/19 Landen Collado PA-C [address] [place] [address] Specialist Neurosurgery 04/03/21 documented as of this encounter
--- OUTSIDE RECORDS SUMMARY | 2024-05-05 08:28 | XMS_ITS | Encounter Summary ---
Author Organization [facility] Address [address] [place] [address] Care Team Providers Care Consulting Group Analyst Name Role Phone Luis Enrique Cheek MD Primary Care Provider Corinne De La O MD Primary Care Provider Landen Josue PA-C Unavailable [phone] Reason for Visit * Reason Comments E-prescribe Rx Request Encounter Details Date Type Department Care Team Description 11/21/2017 Refill Physiatry - [place] [address] [place] [address] Christine Boyer MD [address] [place] [address] [place] [address] E-prescribe Rx Request Social History Tobacco Use [...] region documented in this encounter Care Teams Consulting Group Analyst Relationship Specialty Start Date End Date Luis Enrique Cheek MD PCP - General Internal Medicine 09/19/15 05/20/19 Corinne Figueroa MD PCP - General Internal Medicine 05/21/19 Landen Collado PA-C [address] [place] [address] Specialist Neurosurgery 04/03/21 documented as of this encounter
--- OUTSIDE RECORDS SUMMARY | 2024-05-05 08:28 | XMS_ITS | Encounter Summary ---
Author Organization [facility] Address [address] [place] [address] Care Team Providers Care Embedded Firmware Developer Name Role Phone Luis Enrique Cheek MD Primary Care Provider Corinne De La O MD Primary Care Provider Landen Josue PA-C Unavailable [phone] Reason for Visit * Reason Comments E-prescribe Rx Request Encounter Details Date Type Department Care Team Description 12/18/2017 Refill Adult Medicine [address] [address] Luis Enrique Cheek MD E-prescribe Rx Request [...] an upcoming appointment? [facility] to [facility] [...] insurance carrier is: [place] / Plan: MEDICARE-[employer] / Product Type: MEDICARE [id number] documented in this encounter Plan of Treatment Not on file documented as of this encounter Visit Diagnoses Not on filedocumented in this encounter Care Teams Embedded Firmware Developer Relationship Specialty Start Date End Date Luis Enrique Cheek MD PCP - General Internal Medicine 09/19/15 05/20/19 Corinne Figueroa MD PCP - General Internal Medicine 05/21/19 Landen Collado PA-C [address] [place] [address] Specialist Neurosurgery 04/03/21 documented as of this encounter
--- OUTSIDE RECORDS SUMMARY | 2024-05-05 08:29 | XMS_ITS | Encounter Summary ---
Author Organization [facility] Address [address] [place] [address] Care Team Providers Care Orthopedic Mechanic Name Role Phone Luis Enrique Cheek MD Primary Care Provider Corinne De La O MD Primary Care Provider Landen Josue PA-C Unavailable [phone] Reason for Visit * Reason Onset Date Comments refill request 08/19/2018 Encounter Details Date Type Department Care Team Description 08/19/2018 Refill Physiatry - [address] [address] Jamal Mir DO refill request Social History [...] N/A Patients current insurance carrier is: Payor: [employer] [facility] [employer] MCR / Plan: [facility] / Product Type: HMO [id number] documented in this encounter Plan of Treatment Not on file documented as of this encounter Visit Diagnoses Diagnosis Spinal stenosis of lumbar region with neurogenic claudication Spinal stenosis, lumbar region, with neurogenic claudication Lumbar radiculitis Thoracic or lumbosacral neuritis or radiculitis, unspecified Osteoarthritis of spine with radiculopathy, lumbar region Muscle cramps Cramp of limb documented in this encounter Care Teams Orthopedic Mechanic Relationship Specialty Start Date End Date Luis Enrique Cheek MD PCP - General Internal Medicine 09/19/15 05/20/19 Corinne Figueroa MD PCP - General Internal Medicine 05/21/19 Landen Collado PA-C [address] [place] [address] Specialist Neurosurgery 04/03/21 documented as of this encounter
--- OUTSIDE RECORDS SUMMARY | 2024-05-05 08:29 | XMS_ITS | Encounter Summary ---
Author Organization [facility] Address [address] [place] [address] Care Team Providers Care Hairspring Adjuster Name Role Phone Luis Enrique Cheek MD Primary Care Provider Luis Enrique Granados MD Primary Care Provider Luis Ernique Granados MD Primary Care Provider Corinne De La O MD Primary Care Provider Landen Josue PA-C Unavailable [phone] Encounter Details Date Type Department Care Team Description 05/19/2015 Release of Information Medical Records [address] [place] [address] Abstract, Provider Social History Tobacco Use Types [...] on filedocumented in this encounter Care Teams Hairspring Adjuster Relationship Specialty Start Date End Date Luis Enrique Cheek MD PCP - General Internal Medicine 06/09/14 09/09/15 Luis Enrique Cheek MD PCP - General Internal Medicine 09/10/15 09/18/15 Luis Enrique Cheek MD PCP - General Internal Medicine 09/19/15 05/20/19 Corinne Figueroa MD PCP - General Internal Medicine 05/21/19 Landen Collado PA-C 175 [facility] [address] [place] [address] Specialist Neurosurgery 04/03/21 documented as of this encounter
--- OUTSIDE RECORDS SUMMARY | 2024-05-05 08:30 | XMS_ITS | Encounter Summary ---
Author Organization [facility] Address [address] [place] [address] Care Team Providers Care Paper Sealer Name Role Phone Luis Enrique Cheek MD Primary Care Provider Corinne De La O MD Primary Care Provider Landen Josue PA-C Unavailable [phone] Reason for Visit * Reason Comments E-prescribe Rx Request Encounter Details Date Type Department Care Team Description 08/11/2016 Refill Adult Medicine [address] [address] Luis Enrique Cheek MD E-prescribe Rx Request [...] NO Patients current insurance carrier is: Payor: [facility] / Plan: [facility] HMO $0 [place] / Product Type: HMO [id number] documented in this encounter Plan of Treatment Not on file documented as of this encounter Visit Diagnoses Not on filedocumented in this encounter Care Teams Paper Sealer Relationship Specialty Start Date End Date Luis Enrique Cheek MD PCP - General Internal Medicine 09/19/15 05/20/19 Corinne Figueroa MD PCP - General Internal Medicine 05/21/19 Landen Collado PA-C [address] [place] [address] Specialist Neurosurgery 04/03/21 documented as of this encounter
--- OUTSIDE RECORDS SUMMARY | 2024-05-05 08:30 | XMS_ITS | Encounter Summary ---
Author Organization [facility] Address [address] [place] [address] Care Team Providers Care Netsuite Consultant Name Role Phone Luis Enrique Cheek MD Primary Care Provider Corinne De La O MD Primary Care Provider Landen Josue PA-C Unavailable [phone] Encounter Details Date Type Department Care Team Description 09/20/2015 Transfer Records Medical Records [address] [place] [address] Abstract, Provider Social History Tobacco Use Types [...] on filedocumented in this encounter Care Teams Netsuite Consultant Relationship Specialty Start Date End Date Luis Enrique Cheek MD PCP - General Internal Medicine 09/19/15 05/20/19 Corinne Figueroa MD PCP - General Internal Medicine 05/21/19 Landen Collado PA-C 175 [facility] [address] [place] [address] Specialist Neurosurgery 04/03/21 documented as of this encounter
--- OUTSIDE RECORDS SUMMARY | 2024-05-05 08:30 | XMS_ITS | Encounter Summary ---
Author Organization [facility] Address [address] [place] [address] Care Team Providers Care Supply Technician Name Role Phone Luis Enrique Cheek MD Primary Care Provider Luis Enrique Granados MD Primary Care Provider Luis Enrique Granados MD Primary Care Provider Corinne De La O MD Primary Care Provider Landen Josue PA-C Unavailable [phone] Encounter Details Date Type Department Care Team Description 04/12/2015 Refill Adult Medicine [address] [address] Luis Enrique Cheek MD Social History Tobacco [...] on filedocumented in this encounter Care Teams Supply Technician Relationship Specialty Start Date End Date Luis Enrique Cheek MD PCP - General Internal Medicine 06/09/14 09/09/15 Luis Enrique Cheek MD PCP - General Internal Medicine 09/10/15 09/18/15 Luis Enrique Cheek MD PCP - General Internal Medicine 09/19/15 05/20/19 Corinne Figueroa MD PCP - General Internal Medicine 05/21/19 Landen Collado PA-C [address] [place] [address] Specialist Neurosurgery 04/03/21 documented as of this encounter
--- OUTSIDE RECORDS SUMMARY | 2024-05-05 08:30 | XMS_ITS | Encounter Summary ---
Author Organization [facility] Address [address] [place] [address] Care Team Providers Care Transcriptionist Name Role Phone Luis Enrique Cheek MD Primary Care Provider Corinne De La O MD Primary Care Provider Landen Josue PA-C Unavailable [phone] Encounter Details Date Type Department Care Team Description 09/21/2015 Business Doc Medical Records [address] [place] [address] Abstract, Provider Social History Tobacco Use Types [...] on filedocumented in this encounter Care Teams Transcriptionist Relationship Specialty Start Date End Date Luis Enrique Cheek MD PCP - General Internal Medicine 09/19/15 05/20/19 Corinne Figueroa MD PCP - General Internal Medicine 05/21/19 Landen Collado PA-C 175 [facility] [address] [place] [address] Specialist Neurosurgery 04/03/21 documented as of this encounter
--- OUTSIDE RECORDS SUMMARY | 2024-05-05 08:30 | XMS_ITS | Encounter Summary ---
Author Organization [facility] Address [address] [place] [address] Care Team Providers Care Landscape Technician Name Role Phone Luis Enrique Cheek MD Primary Care Provider Luis Enrique Granados MD Primary Care Provider Luis Enrique Granados MD Primary Care Provider Corinne De La O MD Primary Care Provider Landen Josue PA-C Unavailable [phone] Encounter Details Date Type Department Care Team Description 05/22/2015 Microfilm Mounter Report Medical Records [address] [place] [address] Koko Avery Social History Tobacco Use Types [...] on filedocumented in this encounter Care Teams Landscape Technician Relationship Specialty Start Date End Date Luis Enrique Cheek MD PCP - General Internal Medicine 06/09/14 09/09/15 Luis Enrique Cheek MD PCP - General Internal Medicine 09/10/15 09/18/15 Luis Enrique Cheek MD PCP - General Internal Medicine 09/19/15 05/20/19 Corinne Figueroa MD PCP - General Internal Medicine 05/21/19 Landen Collado PA-C 175 [facility] [address] [place] [address] Specialist Neurosurgery 04/03/21 documented as of this encounter
--- OUTSIDE RECORDS SUMMARY | 2024-05-05 08:31 | XMS_ITS | Patient Health Record ---
Author Organization [facility] Address [address] [facility] [address] [place] [address] Care Team Providers Care Regional Refrigerated Cdl Truck Driver Name Role Phone Corinne Figueroa Primary Care [...] Once a day Not-Taking Cholecalciferol Not- Taking Npcelyjrny-EWSW-Negtbvbi 50-325-40 MG 1 tablet as needed Orally every 4 hrs Active Aspirin 81 MG 1 tablet Orally Once a day Not-Taking Lidocaine 5 % 1 patch remove after 12 hours Externally Active Calcium Citrate + D3 Not-Taking Multivitamin Active Qvar Not-Taking SEROquel XR 200 MG 1 tablet in the evening Orally Once a day 100 MG Active Nasal [place] Active Cyanocobalamin 1000 MCG 1 tablet Orally [...] Problem Status W/U Status Risk Notes Problem [id number] Pain due to bone fixation device, subsequent [...]
--- OUTSIDE RECORDS SUMMARY | 2024-05-05 08:31 | XMS_ITS | Encounter Summary ---
Author Organization [facility] Address [address] [place] [address] Care Team Providers Care Operator Maintainer Name Role Phone Luis Enrique Cheek MD Primary Care Provider Corinne De La O MD Primary Care Provider Landen Josue PA-C Unavailable [phone] Encounter Details Date Type Department Care Team Description 12/06/2015 Release of Information Medical Records [address] [place] [address] Abstract, Provider Social History Tobacco Use Types [...] on filedocumented in this encounter Care Teams Operator Maintainer Relationship Specialty Start Date End Date Luis Enrique Cheek MD PCP - General Internal Medicine 09/19/15 05/20/19 Corinne Figueroa MD PCP - General Internal Medicine 05/21/19 Landen Collado PA-C 175 [facility] [address] [place] [address] Specialist Neurosurgery 04/03/21 documented as of this encounter
--- OUTSIDE RECORDS SUMMARY | 2024-05-05 08:32 | XMS_ITS | Encounter Summary ---
Author Organization [facility] Address [address] [place] [address] Care Team Providers Care Petroleum Plant Operator Name Role Phone Luis Enrique Cheek MD Primary Care Provider Corinne De La O MD Primary Care Provider Landen Josue PA-C Unavailable [phone] Encounter Details Date Type Department Care Team Description 02/01/2016 Weaving Inspector Report Medical Records [address] [place] [address] Tabatha Henderson Social History Tobacco Use Types [...] on filedocumented in this encounter Care Teams Petroleum Plant Operator Relationship Specialty Start Date End Date Luis Enrique Cheek MD PCP - General Internal Medicine 09/19/15 05/20/19 Corinne Figueroa MD PCP - General Internal Medicine 05/21/19 Landen Collado PA-C 175 [facility] [address] [place] [address] Specialist Neurosurgery 04/03/21 documented as of this encounter
--- OUTSIDE RECORDS SUMMARY | 2024-05-05 08:32 | XMS_ITS | Encounter Summary ---
Author Organization [facility] Address [address] [place] [address] Care Team Providers Care Monitoring Specialist Name Role Phone Corinne Figueroa MD Primary Care Provider Landen Josue PA-C Unavailable [phone] Encounter Details Date Type Department Care Team Description 10/29/2019 Telephone Podiatry - [address] [address] Corinne Figueroa MD Social History Tobacco Use [...] on filedocumented in this encounter Care Teams Monitoring Specialist Relationship Specialty Start Date End Date Corinne Figueroa MD PCP - General Internal Medicine 05/21/19 Landen Collado PA-C 175 [facility] [address] [place] [address] Specialist Neurosurgery 04/03/21 documented as of this encounter
--- OUTSIDE RECORDS SUMMARY | 2024-05-05 08:32 | XMS_ITS | Encounter Summary ---
Author Organization [facility] Address [address] [place] [address] Care Team Providers Care Helper Shear Operator Name Role Phone Luis Enrique Cheek MD Primary Care Provider Luis Enrique Granados MD Primary Care Provider Luis Enrique Granados MD Primary Care Provider Corinne De La O MD Primary Care Provider Landen Josue PA-C Unavailable [phone] Encounter Details Date Type Department Care Team Description 06/29/2014 Release of Information Medical Records [address] [place] [address] Abstract, Provider Social History Tobacco Use Types [...] on filedocumented in this encounter Care Teams Helper Shear Operator Relationship Specialty Start Date End Date Luis Enrique Cheek MD PCP - General Internal Medicine 06/09/14 09/09/15 Luis Enrique Cheek MD PCP - General Internal Medicine 09/10/15 09/18/15 Luis Enrique Cheek MD PCP - General Internal Medicine 09/19/15 05/20/19 Corinne Figueroa MD PCP - General Internal Medicine 05/21/19 Landen Collado PA-C 175 [facility] [address] [place] [address] Specialist Neurosurgery 04/03/21 documented as of this encounter
--- OUTSIDE RECORDS SUMMARY | 2024-05-05 08:32 | XMS_ITS | Encounter Summary ---
Author Organization [facility] Address [address] [place] [address] Care Team Providers Care Game Preserve Manager Name Role Phone Corinne Figueroa MD Primary Care Provider Landen Josue PA-C Unavailable [phone] Reason for Visit * Reason Comments E-prescribe Rx Request Encounter Details Date Type Department Care Team Description 11/18/2019 Refill Physiatry - [place] [address] [place] [address] Jamal Mir DO E-prescribe Rx Request Social [...] limb documented in this encounter Care Teams Game Preserve Manager Relationship Specialty Start Date End Date Corinne Figueroa MD PCP - General Internal Medicine 05/21/19 Landen Collado PA-C [address] [place] [address] Specialist Neurosurgery 04/03/21 documented as of this encounter
--- OUTSIDE RECORDS SUMMARY | 2024-05-05 08:33 | XMS_ITS | Encounter Summary ---
Author Organization [facility] Address [address] [place] [address] Care Team Providers Care Electrician Constructor Supervisor Name Role Phone Luis Enrique Cheek MD Primary Care Provider Corinne De La O MD Primary Care Provider Landen Josue PA-C Unavailable [phone] Encounter Details Date Type Department Care Team Description 01/03/2016 Controlled Substance Plan Medical Records [address] [place] [address] Abstract, Provider Social History Tobacco Use Types [...] on filedocumented in this encounter Care Teams Electrician Constructor Supervisor Relationship Specialty Start Date End Date Luis Enrique Cheek MD PCP - General Internal Medicine 09/19/15 05/20/19 Corinne Figueroa MD PCP - General Internal Medicine 05/21/19 Landen Collado PA-C 175 [facility] [address] [place] [address] Specialist Neurosurgery 04/03/21 documented as of this encounter
== END 2024-05-05 08:40 | disposition home or self-care (01) ==
LOC: HO.PMC 08:12
PROVIDERS: PCP Internal Medicine; Visit Provider Anesthesiology
DX: M70.61 Trochanteric bursitis, right hip (principal); M47.27 Other spondylosis with radiculopathy, lumbosacral region; M25.551 Pain in right hip; M96.1 Postlaminectomy syndrome, not elsewhere classified; G89.4 Chronic pain syndrome; M54.51 Vertebrogenic low back pain; M47.816 Spondylosis without myelopathy or radiculopathy, lumbar region; M16.11 Unilateral primary osteoarthritis, right hip
CPT/HCPCS: 99214

== ENCOUNTER → 2024-05-05 08:11 | Outpatient (BNVA) | payer OTHER, SELFPAY | PROVIDERS: PCP Internal Medicine; Visit Provider Anesthesiology | DX: M70.61 Trochanteric bursitis, right hip (principal); M47.27 Other spondylosis with radiculopathy, lumbosacral region; M47.816 Spondylosis without myelopathy or radiculopathy, lumbar region; M25.551 Pain in right hip; M96.1 Postlaminectomy syndrome, not elsewhere classified; M54.51 Vertebrogenic low back pain; M16.11 Unilateral primary osteoarthritis, right hip; G89.4 Chronic pain syndrome | CPT/HCPCS: 99212 ==

== ENCOUNTER 2024-05-18 06:40 | Outpatient (REF) | payer OTHER, SELFPAY ==
--- NOTE | ~2024-05-18 | FL_ITS ---
EXAMINATION: XR FLUOROSCOPY WITH IMAGES CLINICAL INFORMATION: Right hip primary osteoarthritis. Pain management injection. COMPARISON: 08/21/2022. TECHNIQUE: Fluoroscopy provided to: Dr. Patricia Fluoroscopy time: 0.2 minutes DAP: 0.0963 mGycm2 Images: 1 FINDINGS: Solitary spot image taken during right hip intra-articular injection. Please refer to the full procedural report to follow. FL/FL guidance in treatment room IMPRESSION: Fluoroscopic guidance. Electronically signed by: Dennis Long MD 05/19/2024 02:21 PM EDT
--- OUTSIDE RECORDS SUMMARY | 2024-05-18 06:44 | XMS_ITS | Encounter Summary ---
Author Organization [facility] Address [address] [place] [address] Care Team Providers Care Revit Drafter Name Role Phone Luis Enrique Cheek MD Primary Care Provider Corinne De La O MD Primary Care Provider Landen Josue PA-C Unavailable [phone] Encounter Details Date Type Department Care Team Description 03/17/2016 [facility] Medical Records [address] [place] [address] Foreign Garcia Social History Tobacco Use Types [...] on filedocumented in this encounter Care Teams Revit Drafter Relationship Specialty Start Date End Date Luis Enrique Cheek MD PCP - General Internal Medicine 09/19/15 05/20/19 Corinne Figueroa MD PCP - General Internal Medicine 05/21/19 Landen Collado PA-C 175 [facility] [address] [place] [address] Specialist Neurosurgery 04/03/21 documented as of this encounter
--- OUTSIDE RECORDS SUMMARY | 2024-05-18 06:44 | XMS_ITS | Encounter Summary ---
Author Organization [facility] Address [address] [place] [address] Care Team Providers Care Director Of Application Development Name Role Phone Luis Enrique Cheek MD Primary Care Provider Luis Enrique Granados MD Primary Care Provider Luis Enrique Granados MD Primary Care Provider Corinne De La O MD Primary Care Provider Landen Josue PA-C Unavailable [phone] Encounter Details Date Type Department Care Team Description 03/01/2015 [facility] Medical Records [address] [place] [address] Raeann Mota DPM Social History Tobacco Use [...] filedocumented in this encounter Care Teams Director Of Application Development Relationship Specialty Start Date End Date Luis Enrique Cheek MD PCP - General Internal Medicine 06/09/14 09/09/15 Luis Enrique Cheek MD PCP - General Internal Medicine 09/10/15 09/18/15 Luis Enrique Cheek MD PCP - General Internal Medicine 09/19/15 05/20/19 Corinne Figueroa MD PCP - General Internal Medicine 05/21/19 Landen Collado PA-C [address] [facility] [address] [place] [address] Specialist Neurosurgery 04/03/21 documented as of this encounter
--- OUTSIDE RECORDS SUMMARY | 2024-05-18 06:44 | XMS_ITS | Encounter Summary ---
Author Organization [facility] Address [address] [place] [address] Care Team Providers Care Sole Stitcher Hand Name Role Phone Luis Enrique Cheek MD Primary Care Provider Corinne De La O MD Primary Care Provider Landen Josue PA-C Unavailable [phone] Reason for Visit * Reason Onset Date Comments refill request 04/15/2016 Encounter Details Date Type Department Care Team Description 04/15/2016 Refill Adult Medicine [address] [address] Luis Enrique Cheek MD refill request Social [...] on filedocumented in this encounter Care Teams Sole Stitcher Hand Relationship Specialty Start Date End Date Luis Enrique Cheek MD PCP - General Internal Medicine 09/19/15 05/20/19 Corinne Figueroa MD PCP - General Internal Medicine 05/21/19 Landen Collado PA-C [address] [place] [address] Specialist Neurosurgery 04/03/21 documented as of this encounter
--- OUTSIDE RECORDS SUMMARY | 2024-05-18 06:44 | XMS_ITS | Encounter Summary ---
Author Organization [facility] Address [address] [place] [address] Care Team Providers Care Surfboard Designer Name Role Phone Luis Enrique Cheek MD Primary Care Provider Corinne De La O MD Primary Care Provider Landen Josue PA-C Unavailable [phone] Encounter Details Date Type Department Care Team Description 09/01/2017 [facility] Medical Records [address] [place] [address] Abstract, Provider Social History Tobacco Use Types [...] on filedocumented in this encounter Care Teams Surfboard Designer Relationship Specialty Start Date End Date Luis Enrique Cheek MD PCP - General Internal Medicine 09/19/15 05/20/19 Corinne Figueroa MD PCP - General Internal Medicine 05/21/19 Landen Collado PA-C 175 [facility] [address] [place] [address] Specialist Neurosurgery 04/03/21 documented as of this encounter
--- OUTSIDE RECORDS SUMMARY | 2024-05-18 06:44 | XMS_ITS | Encounter Summary ---
Author Organization [facility] Address [address] [place] [address] Care Team Providers Care Lion Trainer Name Role Phone Luis Enrique Cheek MD Primary Care Provider Corinne De La O MD Primary Care Provider Landen Josue PA-C Unavailable [phone] Encounter Details Date Type Department Care Team Description 03/21/2017 Release of Information Medical Records [address] [place] [address] Abstract, Provider Social History Tobacco Use Types [...] on filedocumented in this encounter Care Teams Lion Trainer Relationship Specialty Start Date End Date Luis Enrique Cheek MD PCP - General Internal Medicine 09/19/15 05/20/19 Corinne Figueroa MD PCP - General Internal Medicine 05/21/19 Landen Collado PA-C 175 [facility] [address] [place] [address] Specialist Neurosurgery 04/03/21 documented as of this encounter
--- OUTSIDE RECORDS SUMMARY | 2024-05-18 06:44 | XMS_ITS | Encounter Summary ---
Author Organization [facility] Address [address] [place] [address] Care Team Providers Care Artist'S Manager Name Role Phone Luis Enrique Cheek MD Primary Care Provider Corinne De La O MD Primary Care Provider Landen Josue PA-C Unavailable [phone] Encounter Details Date Type Department Care Team Description 03/27/2016 [facility] Medical Records [address] [place] [address] Abstract, Provider Social History Tobacco Use Types [...] on filedocumented in this encounter Care Teams Artist'S Manager Relationship Specialty Start Date End Date Luis Enrique Cheek MD PCP - General Internal Medicine 09/19/15 05/20/19 Corinne Figueroa MD PCP - General Internal Medicine 05/21/19 Landen Collado PA-C 175 [facility] [address] [place] [address] Specialist Neurosurgery 04/03/21 documented as of this encounter
--- OUTSIDE RECORDS SUMMARY | 2024-05-18 06:44 | XMS_ITS | Encounter Summary ---
Author Organization [facility] Address [address] [place] [address] Care Team Providers Care Transfer And Line Up Worker Name Role Phone Corinne Figueroa MD Primary Care Provider Landen Josue PA-C Unavailable [phone] Reason for Visit * Reason Onset Date Comments Pain, Post Operative 05/08/2021 Encounter Details Date Type Department Care Team Description 05/08/2021 Telephone [facility] Neurosurgery [place] [address] [facility] [address] [place] [phone] Lanedn Collado PA-C [address] [address] Pain, Post Operative Social History Tobacco Use [...] on filedocumented in this encounter Care Teams Transfer And Line Up Worker Relationship Specialty Start Date End Date Corinne Figueroa MD PCP - General Internal Medicine 05/21/19 Landen Collado PA-C [address] [place] [address] Specialist Neurosurgery 04/03/21 documented as of this encounter
--- OUTSIDE RECORDS SUMMARY | 2024-05-18 06:44 | XMS_ITS | Encounter Summary ---
Author Organization [facility] Address [address] [place] [address] Care Team Providers Care Rebeamer Name Role Phone Corinne Figueroa MD Primary Care Provider Landen Josue PA-C Unavailable Encounter Details Date Type Department Care Team Description 04/04/2021 SCAN [facility] Medical [facility] Neurosurgery [place] [address] [address] Slim Cervantes MD, PHD Social [...] on filedocumented in this encounter Care Teams Rebeamer Relationship Specialty Start Date End Date Corinne Figueroa MD PCP - General Internal Medicine 05/21/19 Landen Collado PA-C 175 [facility] [address] [place] [address] Specialist Neurosurgery 04/03/21 documented as of this encounter
--- OUTSIDE RECORDS SUMMARY | 2024-05-18 06:44 | XMS_ITS | Encounter Summary ---
Author Organization [facility] Address [address] [place] [address] Care Team Providers Care Dentist Attendant Name Role Phone Luis Enrique Cheek MD Primary Care Provider Corinne De La O MD Primary Care Provider Landen Josue PA-C Unavailable [phone] Encounter Details Date Type Department Care Team Description 05/08/2017 Director Service Report Medical Records [address] [place] [address] Mika Villanueva MD Social History Tobacco Use [...] on filedocumented in this encounter Care Teams Dentist Attendant Relationship Specialty Start Date End Date Luis Enrique Cheek MD PCP - General Internal Medicine 09/19/15 05/20/19 Corinne Figueroa MD PCP - General Internal Medicine 05/21/19 Landen Collado PA-C 175 [facility] [address] [place] [address] Specialist Neurosurgery 04/03/21 documented as of this encounter
--- OUTSIDE RECORDS SUMMARY | 2024-05-18 06:44 | XMS_ITS | Encounter Summary ---
Author Organization [facility] Address [address] [place] [address] Care Team Providers Care Putaway Driver Name Role Phone Luis Enrique Cheek MD Primary Care Provider Luis Enrique Granados MD Primary Care Provider Luis Enrique Granados MD Primary Care Provider Corinne De La O MD Primary Care Provider Landen Josue PA-C Unavailable [phone] Reason for Visit * Reason Onset Date Comments Provider Call Back 03/03/2015 Encounter Details Date Type Department Care Team Description 03/03/2015 Telephone Adult [address] [address] Luis Enrique Cheek MD Provider Call Back [...] on filedocumented in this encounter Care Teams Putaway Driver Relationship Specialty Start Date End Date Luis Enrique Cheek MD PCP - General Internal Medicine 06/09/14 09/09/15 Luis Enrique Cheek MD PCP - General Internal Medicine 09/10/15 09/18/15 Luis Enrique Cheek MD PCP - General Internal Medicine 09/19/15 05/20/19 Corinne Figueroa MD PCP - General Internal Medicine 05/21/19 Landen Collado PA-C [address] [place] [address] Specialist Neurosurgery 04/03/21 documented as of this encounter
--- OUTSIDE RECORDS SUMMARY | 2024-05-18 06:44 | XMS_ITS | Encounter Summary ---
Author Organization [facility] Address [address] [place] [address] Care Team Providers Care Thread Roller Name Role Phone Luis Enrique Cheek MD Primary Care Provider Corinne De La O MD Primary Care Provider Landen Josue PA-C Unavailable [phone] Encounter Details Date Type Department Care Team Description 05/02/2016 [facility] Medical Records [address] [place] [address] Abstract, Provider Social History Tobacco Use Types [...] on filedocumented in this encounter Care Teams Thread Roller Relationship Specialty Start Date End Date Luis Enrique Cheek MD PCP - General Internal Medicine 09/19/15 05/20/19 Corinne Figueroa MD PCP - General Internal Medicine 05/21/19 Landen Collado PA-C 175 [facility] [address] [place] [address] Specialist Neurosurgery 04/03/21 documented as of this encounter
--- OUTSIDE RECORDS SUMMARY | 2024-05-18 06:44 | XMS_ITS | Encounter Summary ---
Author Organization [facility] Address [address] [place] [address] Care Team Providers Care Epoxy Coatings Installer Name Role Phone Corinne Figueroa MD Primary Care Provider Landen Josue PA-C Unavailable Encounter Details Date Type Department Care Team Description 05/04/2021 Orders Only [facility] Medical [facility] Neurosurgery [place] [address] [address] Landen Collado PA-C [address] [address] Social History Tobacco Use Types Packs/Day Years [...] on filedocumented in this encounter Care Teams Epoxy Coatings Installer Relationship Specialty Start Date End Date Corinne Figueroa MD PCP - General Internal Medicine 05/21/19 Landen Collado PA-C [address] [address] Specialist Neurosurgery 04/03/21 documented as of this encounter
--- OUTSIDE RECORDS SUMMARY | 2024-05-18 06:44 | XMS_ITS | Encounter Summary ---
Author Organization [facility] Address [address] [place] [address] Care Team Providers Care Salmon Gillnet Vessel Operator Name Role Phone Luis Enrique Cheek MD Primary Care Provider Corinne De La O MD Primary Care Provider Landen Josue PA-C Unavailable [phone] Reason for Visit * Reason Comments E-prescribe Rx Request Encounter Details Date Type Department Care Team Description 11/13/2017 Refill Adult Medicine [address] [address] Luis Enrique Cheek MD E-prescribe Rx Request [...] appointment? No patient states no longer with [facility] (THE MEDICATION REQUESTED IS ON THE MED LIST ABOVE) All of the medications requested were on the CURRENT MEDS list No longer Patient of kassandra [facility] Did you check the Pharmacy information above?: YES Patient wants: 30 -day supply Is this a mail order prescription request ? NO If the refill is from a FAXED refill request what is the RX # listed on the fax? N/A Patients current insurance carrier is: [place] / Plan: MEDICARE-[email or web address] / Product Type: MEDICARE [id number] documented in this encounter Plan of Treatment Not on file documented as of this encounter Visit Diagnoses Not on filedocumented in this encounter Care Teams Salmon Gillnet Vessel Operator Relationship Specialty Start Date End Date Luis Enrique Cheek MD PCP - General Internal Medicine 09/19/15 05/20/19 Corinne Figueroa MD PCP - General Internal Medicine 05/21/19 Landen Collado PA-C [address] [place] [address] [place] [address] Specialist Neurosurgery 04/03/21 documented as of this encounter
--- OUTSIDE RECORDS SUMMARY | 2024-05-18 06:44 | XMS_ITS | Clinical Summary ---
Author Organization [facility] Address [address] [place] [address] Care Team Providers Care Oracle Database Architect Name Role Phone Corinne Figueroa MD Primary Care Provider Landen Josue PA-C Unavailable [phone] Allergies Active Allergy Reactions Severity Noted Date [...] CR 1 Tab daily. 0 11/24/2018 Active [id number] NE 50-325-40 MG OR TABS (FIORICET, ESGIC) [...] Comments Alcohol and Other Drug Abuse Daughter MS Other Father, brother s also with CAD [...] of Vaccination per patient), 02/09/2008 Care Teams Oracle Database Architect Relationship Specialty Start Date End Date Corinne Figueroa MD PCP - General Internal Medicine 05/21/19 Landen Collado PA-Tia 175 [facility] [address] [place] [address] Specialist Neurosurgery 04/03/21
--- OUTSIDE RECORDS SUMMARY | 2024-05-18 06:44 | XMS_ITS | Encounter Summary ---
Author Organization [facility] Address [address] [place] [address] Care Team Providers Care Otologist Name Role Phone Luis Enrique Cheek MD Primary Care Provider Corinne De La O MD Primary Care Provider Landen Josue PA-C Unavailable [phone] Reason for Visit * Reason Comments E-prescribe Rx Request Encounter Details Date Type Department Care Team Description 12/18/2017 Refill Adult Medicine [address] [address] Luis Enrique Cheek MD E-prescribe Rx Request [...] an upcoming appointment? [facility] [...] insurance carrier is: [place] / Plan: MEDICARE-[employer] / Product Type: MEDICARE [id number] documented in this encounter Plan of Treatment Not on file documented as of this encounter Visit Diagnoses Not on filedocumented in this encounter Care Teams Otologist Relationship Specialty Start Date End Date Luis Enrique Cheek MD PCP - General Internal Medicine 09/19/15 05/20/19 Corinne Figueroa MD PCP - General Internal Medicine 05/21/19 Landen Collado PA-C [address] [place] [address] Specialist Neurosurgery 04/03/21 documented as of this encounter
--- OUTSIDE RECORDS SUMMARY | 2024-05-18 06:44 | XMS_ITS | Encounter Summary ---
Author Organization [facility] Address [address] [place] [address] Care Team Providers Care Nailer Machine Name Role Phone Luis Enrique Cheek MD Primary Care Provider Corinne De La O MD Primary Care Provider Landen Josue PA-C Unavailable [phone] Encounter Details Date Type Department Care Team Description 05/12/2018 [facility] Medical Records [address] [place] [address] Jamal Mir DO Social History Tobacco Use [...] on filedocumented in this encounter Care Teams Nailer Machine Relationship Specialty Start Date End Date Luis Enrique Cheek MD PCP - General Internal Medicine 09/19/15 05/20/19 Corinne Figueroa MD PCP - General Internal Medicine 05/21/19 Landen Collado PA-C 175 [facility] [address] [place] [address] Specialist Neurosurgery 04/03/21 documented as of this encounter
--- OUTSIDE RECORDS SUMMARY | 2024-05-18 06:45 | XMS_ITS | Encounter Summary ---
Author Organization [facility] Address [address] [place] [address] Care Team Providers Care Revenue Stamp Clerk Name Role Phone Luis Enrique Cheek MD Primary Care Provider Corinne De La O MD Primary Care Provider Landen Josue PA-C Unavailable [phone] Reason for Visit * Reason Comments E-prescribe Rx Request Encounter Details Date Type Department Care Team Description 03/28/2019 Refill Adult Medicine [address] [address] Una Bagley PA-C [address] [place] [address] E-prescribe Rx Request Social History Tobacco Use [...] N/A Patients current insurance carrier is: Payor: [facility] / Plan: [facility] / Product Type: HMO [id number] documented in this encounter Plan of Treatment Not on file documented as of this encounter Visit Diagnoses Not on filedocumented in this encounter Care Teams Revenue Stamp Clerk Relationship Specialty Start Date End Date Luis Enrique Cheek MD PCP - General Internal Medicine 09/19/15 05/20/19 Corinne Figueroa MD PCP - General Internal Medicine 05/21/19 Landen Collado PA-C [address] [place] [address] Specialist Neurosurgery 04/03/21 documented as of this encounter
--- OUTSIDE RECORDS SUMMARY | 2024-05-18 06:45 | XMS_ITS | Encounter Summary ---
Author Organization [facility] Address [address] [place] [address] Care Team Providers Care Aircraft Sales Representative Name Role Phone Luis Enrique Cheek MD Primary Care Provider Corinne De La O MD Primary Care Provider Landen Josue PA-C Unavailable [phone] Encounter Details Date Type Department Care Team Description 11/07/2015 Controlled Substance Plan Medical Records [address] [place] [address] Abstract, Provider Social History Tobacco Use Types [...] on filedocumented in this encounter Care Teams Aircraft Sales Representative Relationship Specialty Start Date End Date Luis Enrique Cheek MD PCP - General Internal Medicine 09/19/15 05/20/19 Corinne Figueroa MD PCP - General Internal Medicine 05/21/19 Landen Collado PA-C 175 [facility] [address] [place] [address] Specialist Neurosurgery 04/03/21 documented as of this encounter
--- OUTSIDE RECORDS SUMMARY | 2024-05-18 06:45 | XMS_ITS | Encounter Summary ---
Author Organization [facility] Address [address] [place] [address] Care Team Providers Care Reimbursement Counselor Name Role Phone Luis Enrique Cheek MD Primary Care Provider Corinne De La O MD Primary Care Provider Landen Josue PA-C Unavailable [phone] Reason for Visit * Reason Onset Date Comments Provider Call Back 12/04/2016 injection 12/04/2016 Encounter Details Date Type Department Care Team Description 12/04/2016 Telephone Adult Medicine [address] [address] Luis Enrique Cheek MD Provider Call Back; [...] naproxen and robaxin called into [facility] [place]. She will notify office if no improvement [...] patient would like a call back at [phone] * Telephone Encounter - Renetta Tolentino L.P.N. [...] on filedocumented in this encounter Care Teams Reimbursement Counselor Relationship Specialty Start Date End Date Luis Enrique Cheek MD PCP - General Internal Medicine 09/19/15 05/20/19 Corinne Figueroa MD PCP - General Internal Medicine 05/21/19 Landen Collado PA-C [address] [place] [address] Specialist Neurosurgery 04/03/21 documented as of this encounter
--- OUTSIDE RECORDS SUMMARY | 2024-05-18 06:45 | XMS_ITS | Encounter Summary ---
Author Organization [facility] Address [address] [place] [address] Care Team Providers Care Corrugator Operator Name Role Phone Luis Enrique Cheek MD Primary Care Provider Luis Enrique Granados MD Primary Care Provider Luis Enrique Granados MD Primary Care Provider Corinne De La O MD Primary Care Provider Landen Josue PARonan Unavailable [phone] Encounter Details Date Type Department Care Team Description 07/08/2014 Controlled Substance Contract with Plan Medical Records [address] [place] [id number] Abstract, Provider Social History Tobacco Use Types [...] on filedocumented in this encounter Care Teams Corrugator Operator Relationship Specialty Start Date End Date Luis Enrique Cheek MD PCP - General Internal Medicine 06/09/14 09/09/15 Luis Enrique Cheek MD PCP - General Internal Medicine 09/10/15 09/18/15 Luis Enrique Cheek MD PCP - General Internal Medicine 09/19/15 05/20/19 Corinne Figueroa MD PCP - General Internal Medicine 05/21/19 Landen Collado PA-C [address] [facility] [address] [place] [address] Specialist Neurosurgery 04/03/21 documented as of this encounter
--- OUTSIDE RECORDS SUMMARY | 2024-05-18 06:45 | XMS_ITS | Encounter Summary ---
Author Organization [facility] Address [address] [place] [address] Care Team Providers Care Hogshead Hand Name Role Phone Luis Enrique Cheek MD Primary Care Provider Luis Enrique Granados MD Primary Care Provider Luis Enrique Granados MD Primary Care Provider Corinne De La O MD Primary Care Provider Landen Josue PA-C Unavailable [phone] Encounter Details Date Type Department Care Team Description 04/12/2015 Refill Adult Medicine [address] [address] Luis Enrique Cheek MD Social History Tobacco [...] on filedocumented in this encounter Care Teams Hogshead Hand Relationship Specialty Start Date End Date Luis Enrique Cheek MD PCP - General Internal Medicine 06/09/14 09/09/15 Luis Enrique Cheek MD PCP - General Internal Medicine 09/10/15 09/18/15 Luis Enrique Cheek MD PCP - General Internal Medicine 09/19/15 05/20/19 Corinne Figueroa MD PCP - General Internal Medicine 05/21/19 Landen Collado PA-C [address] [place] [address] Specialist Neurosurgery 04/03/21 documented as of this encounter
--- OUTSIDE RECORDS SUMMARY | 2024-05-18 06:45 | XMS_ITS | Encounter Summary ---
Author Organization [facility] Address [address] [place] [address] Care Team Providers Care Bed Machine Operator Name Role Phone Luis Enrique Cheek MD Primary Care Provider Corinne De La O MD Primary Care Provider Landen Josue PA-C Unavailable [phone] Reason for Visit * Reason Onset Date Comments Provider Call Back 05/25/2018 Encounter Details Date Type Department Care Team Description 05/25/2018 Telephone Physiatry - [address] [address] Jamal Mir DO Provider Call Back Social [...] on filedocumented in this encounter Care Teams Bed Machine Operator Relationship Specialty Start Date End Date Luis Enrique Cheek MD PCP - General Internal Medicine 09/19/15 05/20/19 Corinne Figueroa MD PCP - General Internal Medicine 05/21/19 Landen Collado PA-C [address] [place] [address] Specialist Neurosurgery 04/03/21 documented as of this encounter
--- OUTSIDE RECORDS SUMMARY | 2024-05-18 06:45 | XMS_ITS | Encounter Summary ---
Author Organization [facility] Address [address] [place] [address] Care Team Providers Care Health Coordinator Name Role Phone Corinne Figueroa MD Primary Care Provider Landen Josue PA-C Unavailable [phone] Reason for Visit * Reason Comments E-prescribe Rx Request Encounter Details Date Type Department Care Team Description 11/18/2019 Refill Physiatry - [place] [address] [place] [address] Jamal Mir DO E-prescribe Rx Request Social [...] limb documented in this encounter Care Teams Health Coordinator Relationship Specialty Start Date End Date Corinne Figueroa MD PCP - General Internal Medicine 05/21/19 Landen Collado PA-C [address] [place] [address] Specialist Neurosurgery 04/03/21 documented as of this encounter
--- OUTSIDE RECORDS SUMMARY | 2024-05-18 06:45 | XMS_ITS | Encounter Summary ---
Author Organization [facility] Address [address] [place] [address] Care Team Providers Care Director Of State Name Role Phone Luis Enrique Cheek MD Primary Care Provider Corinne De La O MD Primary Care Provider Landen Josue PA-C Unavailable [phone] Reason for Visit * Reason Comments E-prescribe Rx Request Encounter Details Date Type Department Care Team Description 01/24/2017 Refill Adult Medicine [address] [address] Luis Enrique Cheek MD E-prescribe Rx Request [...] NO Patients current insurance carrier is: Payor: [facility] MEDICAID / Plan: [facility] MEDICAID HMO $0 [place] / Product Type: HMO [id number] documented in this encounter Plan of Treatment Not on file documented as of this encounter Visit Diagnoses Not on filedocumented in this encounter Care Teams Director Of State Relationship Specialty Start Date End Date Luis Enrique Cheek MD PCP - General Internal Medicine 09/19/15 05/20/19 Corinne Figueroa MD PCP - General Internal Medicine 05/21/19 Landen Collado PA-C [address] [place] [address] Specialist Neurosurgery 04/03/21 documented as of this encounter
--- OUTSIDE RECORDS SUMMARY | 2024-05-18 06:45 | XMS_ITS | Encounter Summary ---
Author Organization [facility] Address [address] [place] [address] Care Team Providers Care Service Worker Name Role Phone Luis Enrique Cheek MD Primary Care Provider Corinne De La O MD Primary Care Provider Landen Josue PA-C Unavailable [phone] Reason for Visit * Reason Onset Date Comments refill request 08/19/2018 Encounter Details Date Type Department Care Team Description 08/19/2018 Refill Physiatry - [address] [address] Jamal Mir DO refill request Social History [...] N/A Patients current insurance carrier is: Payor: [employer] [facility] [employer] MCR / Plan: [facility] / Product Type: HMO [id number] documented in this encounter Plan of Treatment Not on file documented as of this encounter Visit Diagnoses Diagnosis Spinal stenosis of lumbar region with neurogenic claudication Spinal stenosis, lumbar region, with neurogenic claudication Lumbar radiculitis Thoracic or lumbosacral neuritis or radiculitis, unspecified Osteoarthritis of spine with radiculopathy, lumbar region Muscle cramps Cramp of limb documented in this encounter Care Teams Service Worker Relationship Specialty Start Date End Date Luis Enrique Cheek MD PCP - General Internal Medicine 09/19/15 05/20/19 Corinne Figueroa MD PCP - General Internal Medicine 05/21/19 Landen Collado PA-C [address] [place] [address] Specialist Neurosurgery 04/03/21 documented as of this encounter
--- OUTSIDE RECORDS SUMMARY | 2024-05-18 06:45 | XMS_ITS | Encounter Summary ---
Author Organization [facility] Address [address] [place] [address] Care Team Providers Care Chromium Plater Name Role Phone Corinne Figueroa MD Primary Care Provider Landen Josue PA-C Unavailable [phone] Encounter Details Date Type Department Care Team Description 10/29/2019 Telephone Podiatry - [address] [address] Corinne Figueroa MD Social History Tobacco Use [...] on filedocumented in this encounter Care Teams Chromium Plater Relationship Specialty Start Date End Date Corinne Figueroa MD PCP - General Internal Medicine 05/21/19 Landen Collado PA-C [address] [facility] [address] [place] [address] Specialist Neurosurgery 04/03/21 documented as of this encounter
--- OUTSIDE RECORDS SUMMARY | 2024-05-18 06:45 | XMS_ITS | Encounter Summary ---
Author Organization [facility] Address [address] [place] [address] Care Team Providers Care Steeple Jack Name Role Phone Luis Enrique Cheek MD Primary Care Provider Corinne De La O MD Primary Care Provider Landen oJsue PA-C Unavailable [phone] Encounter Details Date Type Department Care Team Description 09/21/2015 Business Doc Medical Records [address] [place] [id number] Abstract, Provider Social History Tobacco Use Types [...] on filedocumented in this encounter Care Teams Steeple Jack Relationship Specialty Start Date End Date Luis Enrique Cheek MD PCP - General Internal Medicine 09/19/15 05/20/19 Corinne Figueroa MD PCP - General Internal Medicine 05/21/19 Landen Collado PA-C [address] [facility] [address] [place] [address] Specialist Neurosurgery 04/03/21 documented as of this encounter
--- OUTSIDE RECORDS SUMMARY | 2024-05-18 06:45 | XMS_ITS | Encounter Summary ---
Author Organization [facility] Address [address] [place] [address] Care Team Providers Care Superintendent Power Name Role Phone Corinne Figueroa MD Primary Care Provider Landen Josue PA-C Unavailable [phone] Encounter Details Date Type Department Care Team Description 03/22/2020 Coin Counter And Wrapper Report Medical Records [address] [place] [id number] Abstract, Provider Social History Tobacco Use Types [...] on filedocumented in this encounter Care Teams Superintendent Power Relationship Specialty Start Date End Date Corinne Figueroa MD PCP - General Internal Medicine 05/21/19 Landen Collado PA-C [address] [facility] [address] [place] [address] Specialist Neurosurgery 04/03/21 documented as of this encounter
--- OUTSIDE RECORDS SUMMARY | 2024-05-18 06:45 | XMS_ITS | Encounter Summary ---
Author Organization [facility] Address [address] [place] [address] Care Team Providers Care Skin Therapist Name Role Phone Luis Enrique Cheek MD Primary Care Provider Corinne De La O MD Primary Care Provider Landen Josue PA-C Unavailable [phone] Encounter Details Date Type Department Care Team Description 09/20/2016 Orders Only Medical Records [address] [place] [address] Raeann Mota DPM Social History Tobacco Use [...] on filedocumented in this encounter Care Teams Skin Therapist Relationship Specialty Start Date End Date Luis Enrique Cheek MD PCP - General Internal Medicine 09/19/15 05/20/19 Corinne Figueroa MD PCP - General Internal Medicine 05/21/19 Landen Collado PA-C [address] [place] [address] Specialist Neurosurgery 04/03/21 documented as of this encounter
--- OUTSIDE RECORDS SUMMARY | 2024-05-18 06:45 | XMS_ITS | Encounter Summary ---
Author Organization [facility] Address [address] [place] [address] Care Team Providers Care Outsole Beveler Name Role Phone Luis Enrique Cheek MD Primary Care Provider Corinne De La O MD Primary Care Provider Landen Josue PA-C Unavailable [phone] Encounter Details Date Type Department Care Team Description 09/21/2018 Refill Adult Medicine [address] [address] Luis Enrique Cheek MD Social History Tobacco [...] an upcoming appointment? No-unable to reach left [facility] to call for appointment due to refill [...] N/A Patients current insurance carrier is: [facility] M[facility] / Plan: [facility] / Product Type: HMO [id number] documented in this encounter Plan of Treatment Not on file documented as of this encounter Visit Diagnoses Not on filedocumented in this encounter Care Teams Outsole Beveler Relationship Specialty Start Date End Date Luis Enrique Cheek MD PCP - General Internal Medicine 09/19/15 05/20/19 Corinne Figueroa MD PCP - General Internal Medicine 05/21/19 Landen Collado PA-C [address] [place] [address] Specialist Neurosurgery 04/03/21 documented as of this encounter
--- OUTSIDE RECORDS SUMMARY | 2024-05-18 06:45 | XMS_ITS | Patient Health Record ---
Author Organization [facility] Address [address] [facility] [address] [place] [address] Care Team Providers Care Bullard Machine Operator Name Role Phone Corinne Figueroa Primary [...] Once a day Not-Taking Cholecalciferol Not- Taking Ppmqbbdlwp-OFLM-Iocphcsb 50-325-40 MG 1 tablet as needed Orally every 4 hrs Active Aspirin 81 MG 1 tablet Orally Once a day Not-Taking Lidocaine 5 % 1 patch remove after 12 hours Externally Active Calcium Citrate + D3 Not-Taking Multivitamin Active Qvar Not-Taking SEROquel XR 200 MG 1 tablet in the evening Orally Once a day 100 MG Active Nasal [place] Active Cyanocobalamin 1000 MCG 1 tablet Orally [...] Problem Status W/U Status Risk Notes Problem [id number] Pain due to bone fixation device, subsequent [...] Instructions Date of Administration Dosage Notes Dexamethasone 10/12/2020 0.5 mL Kenalog 10/12/2020 0.5 mL Dexamethasone 07/21/2020 0.5 mL Dexamethasone 06/01/2020 0.5 mL Dexamethasone 03/08/2020 0.5 mL Dexamethasone 12/10/2019 0.5 mL Dexamethasone 09/13/2022 0.5 mL Dexamethasone 11/09/2021 0.5 mL Kenalog 07/21/2020 0.5 mL Kenalog 06/01/2020 0.5 mL Kenalog 03/08/2020 0.5 mL Kenalog 12/10/2019 0.5 mL Kenalog 09/13/2022 0.5 mL Kenalog 11/09/2021 0.5 mL Medical (General) History Medical History [...]
--- OUTSIDE RECORDS SUMMARY | 2024-05-18 06:45 | XMS_ITS | Encounter Summary ---
Author Organization [facility] Address [address] [place] [address] Care Team Providers Care Sales Research Analyst Name Role Phone Luis Enrique Cheek MD Primary Care Provider Corinne De La O MD Primary Care Provider Landen Josue PA-C Unavailable [phone] Encounter Details Date Type Department Care Team Description 12/06/2015 Release of Information Medical Records [address] [place] [id number] Abstract, Provider Social History Tobacco Use Types [...] on filedocumented in this encounter Care Teams Sales Research Analyst Relationship Specialty Start Date End Date Luis Enrique Cheek MD PCP - General Internal Medicine 09/19/15 05/20/19 Corinne Figueroa MD PCP - General Internal Medicine 05/21/19 Landen Collado PA-C [address] [facility] [address] [place] [address] Specialist Neurosurgery 04/03/21 documented as of this encounter
--- OUTSIDE RECORDS SUMMARY | 2024-05-18 06:45 | XMS_ITS | Encounter Summary ---
Author Organization [facility] Address [address] [place] [address] Care Team Providers Care Mail Delivery Supervisor Name Role Phone Luis Enrique Cheek MD Primary Care Provider Corinne De La O MD Primary Care Provider Landen Josue PA-C Unavailable [phone] Reason for Visit * Reason Comments E-prescribe Rx Request Encounter Details Date Type Department Care Team Description 06/01/2018 Refill Physiatry - [place] [address] [place] [address] Jamal Mir DO E-prescribe Rx Request Social [...] Telephone Encounter - Aisha Adamson M.A. - 06/01/2018 1:23 PM EDT Last ov 05/28/18 Last refill03/09/18 Next ov 05/28/18 documented in this encounter Plan of Treatment Not on file documented as of this encounter Visit Diagnoses Diagnosis Spinal stenosis of lumbar region with neurogenic claudication Spinal stenosis, lumbar region, with neurogenic claudication Lumbar radiculitis Thoracic or lumbosacral neuritis or radiculitis, unspecified Osteoarthritis of spine with radiculopathy, lumbar region Muscle cramps Cramp of limb documented in this encounter Care Teams Mail Delivery Supervisor Relationship Specialty Start Date End Date Luis Enrique Cheek MD PCP - General Internal Medicine 09/19/15 05/20/19 Corinne Figueroa MD PCP - General Internal Medicine 05/21/19 Landen Collado PA-C [address] [place] [address] Specialist Neurosurgery 04/03/21 documented as of this encounter
== END 2024-05-18 06:41 | disposition home or self-care (01) ==
LOC: CF 06:40
PROVIDERS: Visit Provider Anesthesiology
DX: M16.11 Unilateral primary osteoarthritis, right hip (principal)
CPT/HCPCS: 20610; A9585; J1100; J2003; J2795; Q9967

== ENCOUNTER 2024-05-18 14:43 | Outpatient (AMB) | payer OTHER, SELFPAY ==
[2024-05-18 15:00] VITALS: BP 138/73; PULSE 69; RESP 16; O2SAT 98
--- NOTE | 2024-05-18 15:00 | A.OFFVIS_ITS ---
Vital Signs 05/18/24 15:00 05/18/24 15:18 BP 138/73 134/61 Blood Pressure Location Lt brachial Lt brachial Position Sitting Sitting Respiration 16 16 Pulse 69 66 Pulse Source Pulse Oximeter Pulse Oximeter Pulse Oximetry (%) 98 100 Oxygen Delivery Method Room Air Room Air Intake Visit Reasons: RIGHT INRA-ARTRICULAR HIP INJECTION (DECADRONE) Legal Researcher Required: No Allergies Iodinated Contrast Media [Iodinated Contrast Media - IV Dye] Allergy (Intermediate, Verified 05/18/24 15:01) HIVES ketorolac [From Toradol] Allergy (Intermediate, Verified 05/18/24 15:01) localized redness/swelling Medication List - Last Reconciled 05/18/24 by Tierra Tavarez LPN acyclovir 5% 1 appl topical .q 4 hrs albuterol sulfate 90 mcg/actuation 2 puffs inhalation Q4-6H PRN brimonidine 0.2% 1 drp ophthalmic (eye) BID cyqfwlyium-ucxifobgcykap-yobw 50-325-40 mg 1 tab PO .QD PRN clonazepam 1 mg PO BID divalproex ER (Depakote ER) 500 mg PO BID fluticasone furoate-vilanterol 100-25 mcg/dose 1 inh inhalation DAILY fluticasone propionate 50 mcg/actuation 1 spray intranasal DAILY PRN gabapentin (Neurontin) 600 mg PO TID 30 days latanoprost 0.005% drps ophthalmic (eye) paroxetine HCl 40 mg PO BEDTIME paroxetine HCl 10 mg PO BEDTIME quetiapine 100 mg PO BEDTIME quetiapine 25 mg PO BID PRN valacyclovir (Valtrex) 2,000 mg (2 x 1 gram) PO Q12H PFSH Medical History Seizure disorder Syncope Cervical spondylosis with radiculopathy Cervical radiculopathy Cervical strain Neck pain Hematoma following procedure Calf pain Incisional pain Postoperative bleeding from incision Cellulitis Anemia Anxiety with depression Fatty liver Back pain Arthritis Abscess or cellulitis of knee Skin laxity Hyperlipidemia GERD (gastroesophageal reflux disease) COVID-19 vaccine administered Postlaminectomy syndrome Bunion of left foot Postconcussion syndrome Labral tear of right hip joint Spinal stenosis Colon polyps Allergic rhinitis Herpes Chronic sinusitis Depression Migraines Asthma Hypotension Malabsorption due to intolerance, not elsewhere classified Surgical History Hx of spinal fusion S/P plastic surgery S/P panniculectomy History of hip surgery History of endometrial ablation S/P tonsillectomy S/P bilateral foot surgery History of appendectomy H/O colonoscopy H/O endoscopy S/P laparoscopic sleeve gastrectomy H/O laminectomy Family History Father No problems noted. Mother Cervical spine tumor Brother No problems noted. Brother No problems noted. Brother No problems noted. Brother No problems noted. Sister Mental health disorder Son No problems noted. Daughter No problems noted. Social History Household Members: Spouse Housing: House Are you a primary medical care evaluation specialist to a significant other at home: No Do you presently have visiting nurse or other home services: No Unable to assess alcohol history related to: Unknown Alcohol intake: former Comment: count correct Patient Tobacco Use Status: Never used Tobacco e-Cigarette/Vaping Use: Never Used Second Hand Smoke Exposure: No Substance Use Type: Marijuana Advance Directives Date on File: 10/28/23 service: No Current occupational status: disabled Cognitive needs: No Hearing needs: No Vision needs: No Physical Exam Vital Signs: Last Vital Signs Pulse 66 05/18/24 15:18 Resp 16 05/18/24 15:18 BP 134/61 05/18/24 15:18 Pulse Ox 100 05/18/24 15:18 Oxygen Delivery Method Room Air 05/18/24 15:18 Assessment & Plan Assessment & Plan (1) Trochanteric bursitis of right hip: Code(s): M70.61 - Trochanteric bursitis, right hip Category: Medical (2) Lumbosacral spondylosis with radiculopathy: Code(s): M47.27 - Other spondylosis with radiculopathy, lumbosacral region Category: Medical (3) Right hip pain: Code(s): M25.551 - Pain in right hip Category: Medical (4) Failed back syndrome, lumbar: Code(s): M96.1 - Postlaminectomy syndrome, not elsewhere classified Category: Medical Plan: (5) Chronic pain syndrome: Code(s): G89.4 - Chronic pain syndrome Category: Medical (6) Vertebrogenic low back pain: Code(s): M54.51 - Vertebrogenic low back pain Category: Medical (7) Spondylosis of lumbar region without myelopathy or radiculopathy: Code(s): M47.816 - Spondylosis without myelopathy or radiculopathy, lumbar region Category: Medical (8) Osteoarthritis of right hip: Code(s): M16.11 - Unilateral primary osteoarthritis, right hip Category: Medical Plan: intra-articular right hip Decadron injection. Informed consent was explained to the patient. All questions were explained and? answered. The patient was taken inside the operating room where she was positioned left lateral decubitus on the operating table.? Time-out was performed delineating correct site, side, the nature of the procedure, patient's allergy, preoperative antibiotic if needed.? All operating room staff was participating in OR time-out procedure.? The patient stated his name. Non dependent right hip was prepped with ChloraPrep and draped with sterile towels.? The C-arm was brought over the operating field and the picture of bilateral hip joints were obtained on the screen.? The right hip joint was chosen as the target for the injection.? The trochanter position was noted on the screen.? The projection of the trochanter to the skin was noted, the direction of the femoral neck was noted.? The skin was anesthetized using 2% lidocaine at the trochanter area.? 22 gauge 5 in needle was inserted through the skin and advanced to the hip joint silhouette on under intermittent lateral and anterior posterior views.? When needle entered the Silhouette of the joint injection of the contrast gadavist ( patient is allergic to iodine contrast) was performed demonstrating intra-articular spread of the contrast.? After that 4 cc of ropivacaine 0.5% mixed with Decadron 8 mg was injected into the area.? The needle was redirected to were the trochanteric bursa and injection of the same ropivacaine 0.5% 1 cc with 2 mg of Decadron was performed,upon completion of the procedure the needle was removed and Band-Aid was applied. Plan Patient is status post caudal BETSEY and right GTB injection on 08/21/22 and Right Therapeutic SIJ injection on 07/24/22 . Caudal BETSEY provided 80% pain relief for radicular back symptoms with improvement in her daily functions and activities. That lasted 3 weeks only. Sacroiliac joint injection which was performed 2 weeks ago on 04/18/2024 was not effective to control her pain. Attention was attracted today for pain in the groin with hip rotation. I recommended her to have intra-articular right hip steroid injection. She is allergic to iodine contrast so we will perform it under Gadavist image. The injectate will contain Decadron, this is recommendation of her manager loss prevention. She tried Nevro SCS in the past it did not alleviate her pain. Her manager loss prevention agreed to use short-acting steroid injections Orders: Orders FL guidance in treatment room Today M16.11 - Unilateral primary osteoarthritis, right hip Coding Level of Care Code Procedure Only Diagnoses Trochanteric bursitis of right hip M70.61 Lumbosacral spondylosis with radiculopathy M47.27 Right hip pain M25.551 Failed back syndrome, lumbar M96.1 Chronic pain syndrome G89.4 Vertebrogenic low back pain M54.51 Spondylosis of lumbar region without myelopathy or radiculopathy M47.816 Osteoarthritis of right hip M16.11
[2024-05-18 15:18] VITALS: BP 134/61; PULSE 66; RESP 16; O2SAT 100
--- OUTSIDE RECORDS SUMMARY | 2024-05-18 17:35 | XMS_ITS | Encounter Summary ---
Author Organization [facility] Address [address] [place] [address] Care Team Providers Care Facilities Officer Name Role Phone Luis Enrique Cheek MD Primary Care Provider Luis Enrique Granados MD Primary Care Provider Luis Enrique Granados MD Primary Care Provider Corinne De La O MD Primary Care Provider Landen Josue PARonan Unavailable [phone] Encounter Details Date Type Department Care Team Description 07/08/2014 Controlled Substance Contract with Plan Medical Records [address] [place] [id number] Abstract, Provider Social History Tobacco Use Types [...] on filedocumented in this encounter Care Teams Facilities Officer Relationship Specialty Start Date End Date Luis Enrique Cheek MD PCP - General Internal Medicine 06/09/14 09/09/15 Luis Enrique Cheek MD PCP - General Internal Medicine 09/10/15 09/18/15 Luis Enrique Cheek MD PCP - General Internal Medicine 09/19/15 05/20/19 Corinne Figueroa MD PCP - General Internal Medicine 05/21/19 Landen Collado PA-C [address] [facility] [address] [place] [address] Specialist Neurosurgery 04/03/21 documented as of this encounter
--- OUTSIDE RECORDS SUMMARY | 2024-05-18 17:35 | XMS_ITS | Encounter Summary ---
Author Organization [facility] Address [address] [place] [address] Care Team Providers Care Training And Development Manager Name Role Phone Luis Enrique Cheek MD Primary Care Provider Corinne De La O MD Primary Care Provider Landen Josue PA-C Unavailable [phone] Encounter Details Date Type Department Care Team Description 02/01/2016 Electrical Instrument Maker Report Medical Records [address] [place] [address] Tabatha Henderson Social History Tobacco Use Types [...] on filedocumented in this encounter Care Teams Training And Development Manager Relationship Specialty Start Date End Date Luis Enrique Cheek MD PCP - General Internal Medicine 09/19/15 05/20/19 Corinne Figueroa MD PCP - General Internal Medicine 05/21/19 Landen Collado PA-C 175 [facility] [address] [place] [address] Specialist Neurosurgery 04/03/21 documented as of this encounter
--- OUTSIDE RECORDS SUMMARY | 2024-05-18 17:35 | XMS_ITS | Encounter Summary ---
Author Organization [facility] Address [address] [place] [address] Care Team Providers Care Sports Writer Name Role Phone Luis Enrique Cheek MD Primary Care Provider Luis Enrique Granados MD Primary Care Provider Luis Enrique Granados MD Primary Care Provider Corinne De La O MD Primary Care Provider Landen Josue PA-C Unavailable [phone] Encounter Details Date Type Department Care Team Description 05/22/2015 Research & Insights Executive Report Medical Records [address] [place] [address] Koko Avery Social History Tobacco Use Types [...] on filedocumented in this encounter Care Teams Sports Writer Relationship Specialty Start Date End Date Luis Enrique Cheek MD PCP - General Internal Medicine 06/09/14 09/09/15 Luis Enrique Cheek MD PCP - General Internal Medicine 09/10/15 09/18/15 Luis Enrique Cheek MD PCP - General Internal Medicine 09/19/15 05/20/19 Corinne Figueroa MD PCP - General Internal Medicine 05/21/19 Landen Collado PA-C 175 [facility] [address] [place] [address] Specialist Neurosurgery 04/03/21 documented as of this encounter
--- OUTSIDE RECORDS SUMMARY | 2024-05-18 17:35 | XMS_ITS | Encounter Summary ---
Author Organization [facility] Address [address] [place] [address] Care Team Providers Care Botany Technician Name Role Phone Luis Enrique Cheek MD Primary Care Provider Corinne De La O MD Primary Care Provider Landen Josue PA-C Unavailable [phone] Encounter Details Date Type Department Care Team Description 12/08/2018 [facility] Medical Records [address] [place] [address] Jamal Mir DO Social History Tobacco Use [...] on filedocumented in this encounter Care Teams Botany Technician Relationship Specialty Start Date End Date Luis Enrique Cheek MD PCP - General Internal Medicine 09/19/15 05/20/19 Corinne Figueroa MD PCP - General Internal Medicine 05/21/19 Landen Collado PA-C 175 [facility] [address] [place] [address] Specialist Neurosurgery 04/03/21 documented as of this encounter
--- OUTSIDE RECORDS SUMMARY | 2024-05-18 17:35 | XMS_ITS | Encounter Summary ---
Author Organization [facility] Address [address] [place] [address] Care Team Providers Care Country Printer Name Role Phone Luis Enrique Cheek MD Primary Care Provider Luis Enrique Granados MD Primary Care Provider Luis Enrique Granados MD Primary Care Provider Corinne De La O MD Primary Care Provider Landen Josue PA-C Unavailable [phone] Encounter Details Date Type Department Care Team Description 01/24/2015 BODY DESIGN CHECKER/MassPat Report Medical Records [address] [place] [id number] Abstract, Provider Social History Tobacco Use Types [...] on filedocumented in this encounter Care Teams Country Printer Relationship Specialty Start Date End Date Luis Enrique Cheek MD PCP - General Internal Medicine 06/09/14 09/09/15 Luis Enrique Cheek MD PCP - General Internal Medicine 09/10/15 09/18/15 Luis Enrique Cheek MD PCP - General Internal Medicine 09/19/15 05/20/19 Corinne Figueroa MD PCP - General Internal Medicine 05/21/19 Landen Collado PA-C 175 [facility] [address] [place] [address] Specialist Neurosurgery 04/03/21 documented as of this encounter
--- OUTSIDE RECORDS SUMMARY | 2024-05-18 17:35 | XMS_ITS | Encounter Summary ---
Author Organization [facility] Address [address] [place] [address] Care Team Providers Care Client Solutions Specialist Name Role Phone Luis Enrique Cheek MD Primary Care Provider Corinne De La O MD Primary Care Provider Landen Josue PA-C Unavailable [phone] Reason for Visit * Reason Onset Date Comments Provider Call Back 12/04/2016 injection 12/04/2016 Encounter Details Date Type Department Care Team Description 12/04/2016 Telephone Adult Medicine [address] [address] Luis Enrique Cheek MD Provider Call Back; [...] naproxen and robaxin called into [facility] [place]. She will notify office if no improvement [...] patient would like a call back at [phone] * Telephone Encounter - Renetta Tolentino L.P.N. [...] on filedocumented in this encounter Care Teams Client Solutions Specialist Relationship Specialty Start Date End Date Luis Enrique Cheek MD PCP - General Internal Medicine 09/19/15 05/20/19 Corinne Figueroa MD PCP - General Internal Medicine 05/21/19 Landen Collado PA-C [address] [place] [address] Specialist Neurosurgery 04/03/21 documented as of this encounter
--- OUTSIDE RECORDS SUMMARY | 2024-05-18 17:35 | XMS_ITS | Encounter Summary ---
Author Organization [facility] Address [address] [place] [address] Care Team Providers Care Maintenance Data Analyst Name Role Phone Luis Enrique Cheek MD Primary Care Provider Corinne De La O MD Primary Care Provider Landen Josue PA-C Unavailable [phone] Encounter Details Date Type Department Care Team Description 09/21/2018 Refill Adult Medicine [address] [address] Luis Enrique Cheek MD Social History Tobacco [...] an upcoming appointment? No-[facility] to [facility]ill [...] N/A Patients current insurance carrier is: [facility] / Plan: [facility] / Product Type: HMO [id number]-[id number] documented in this encounter Plan of Treatment Not on file documented as of this encounter Visit Diagnoses Not on filedocumented in this encounter Care Teams Maintenance Data Analyst Relationship Specialty Start Date End Date Luis Enrique Cheek MD PCP - General Internal Medicine 09/19/15 05/20/19 Corinne Figueroa MD PCP - General Internal Medicine 05/21/19 Landen Collado PA-C [address] [place] [address] Specialist Neurosurgery 04/03/21 documented as of this encounter
--- OUTSIDE RECORDS SUMMARY | 2024-05-18 17:35 | XMS_ITS | Encounter Summary ---
Author Organization [facility] Address [address] [place] [address] Care Team Providers Care Peer Support Specialist Name Role Phone Luis Enrique Cheek MD Primary Care Provider Corinne De La O MD Primary Care Provider Landen Josue PA-C Unavailable [phone] Encounter Details Date Type Department Care Team Description 09/20/2015 Transfer Records Medical Records [address] [place] [address] Abstract, Provider Social History Tobacco Use Types [...] on filedocumented in this encounter Care Teams Peer Support Specialist Relationship Specialty Start Date End Date Luis Enrique Cheek MD PCP - General Internal Medicine 09/19/15 05/20/19 Corinne Figueroa MD PCP - General Internal Medicine 05/21/19 Landen Collado PA-C 175 [facility] [address] [place] [address] Specialist Neurosurgery 04/03/21 documented as of this encounter
--- OUTSIDE RECORDS SUMMARY | 2024-05-18 17:35 | XMS_ITS | Encounter Summary ---
Author Organization [facility] Address [address] [place] [address] Care Team Providers Care Artist Woodblock Name Role Phone Luis Enrique Cheek MD Primary Care Provider Luis Enrique Granados MD Primary Care Provider Luis Enrique Granados MD Primary Care Provider Corinne De La O MD Primary Care Provider Landen Josue PA-C Unavailable [phone] Encounter Details Date Type Department Care Team Description 05/19/2015 Release of Information Medical Records [address] [place] [address] Abstract, Provider Social History Tobacco Use Types [...] on filedocumented in this encounter Care Teams Artist Woodblock Relationship Specialty Start Date End Date Luis Enrique Cheek MD PCP - General Internal Medicine 06/09/14 09/09/15 Luis Enrique Cheek MD PCP - General Internal Medicine 09/10/15 09/18/15 Luis Enrique Cheek MD PCP - General Internal Medicine 09/19/15 05/20/19 Corinne Figueroa MD PCP - General Internal Medicine 05/21/19 Landen Collado PA-C 175 [facility] [address] [place] [address] Specialist Neurosurgery 04/03/21 documented as of this encounter
--- OUTSIDE RECORDS SUMMARY | 2024-05-18 17:35 | XMS_ITS | Encounter Summary ---
Author Organization [facility] Address [address] [place] [address] Care Team Providers Care Catering Coordinator Name Role Phone Corinne Figueroa MD Primary Care Provider Landen Josue PA-C Unavailable Encounter Details Date Type Department Care Team Description 05/04/2021 Orders Only [facility] Neurosurgery [place] [address] [address] Landen Collado PA-C [address] [address] Social History Tobacco Use Types Packs/Day Years [...] on filedocumented in this encounter Care Teams Catering Coordinator Relationship Specialty Start Date End Date Corinne Figueroa MD PCP - General Internal Medicine 05/21/19 Landen Collado PA-C [address] [address] Specialist Neurosurgery 04/03/21 documented as of this encounter
--- OUTSIDE RECORDS SUMMARY | 2024-05-18 17:35 | XMS_ITS | Encounter Summary ---
Author Organization [facility] Address [address] [place] [address] Care Team Providers Care Cloth Desizing Range Operator Chief Name Role Phone Corinne Figueroa MD Primary Care Provider Landen Josue PA-C Unavailable [phone] Encounter Details Date Type Department Care Team Description 03/22/2020 Crusher Plant Operator Report Medical Records [address] [place] [address] Abstract, Provider Social History Tobacco Use Types [...] on filedocumented in this encounter Care Teams Cloth Desizing Range Operator Chief Relationship Specialty Start Date End Date Corinne Figueroa MD PCP - General Internal Medicine 05/21/19 Landen Collado PA-C 175 [facility] [address] [place] [address] Specialist Neurosurgery 04/03/21 documented as of this encounter
--- OUTSIDE RECORDS SUMMARY | 2024-05-18 17:35 | XMS_ITS | Clinical Summary ---
Author Organization [facility] Address [address] [place] [address] Care Team Providers Care Fence Supervisor Name Role Phone Corinne Figueroa MD Primary Care Provider Landen Josue PA-C Unavailable [phone] Allergies Active Allergy Reactions Severity Noted Date [...] CR 1 Tab daily. 0 11/24/2018 Active [id number] NE 50-325-40 MG OR TABS (FIORICET, ESGIC) [...] Comments Alcohol and Other Drug Abuse Daughter [place] Other Father, brother s also with CAD [...] of Vaccination per patient), 02/09/2008 Care Teams Fence Supervisor Relationship Specialty Start Date End Date Corinne Figueroa MD PCP - General Internal Medicine 05/21/19 Landen Collado PA-Tia 175 [facility] [address] [place] [address] Specialist Neurosurgery 04/03/21
--- OUTSIDE RECORDS SUMMARY | 2024-05-18 17:35 | XMS_ITS | Encounter Summary ---
Author Organization [facility] Address [address] [place] [address] Care Team Providers Care Federal Judicial Law Clerk Name Role Phone Luis Enrique Cheek MD Primary Care Provider Corinne De La O MD Primary Care Provider Landen Josue PA-C Unavailable [phone] Reason for Visit * Reason Comments E-prescribe Rx Request Encounter Details Date Type Department Care Team Description 11/13/2017 Refill Adult Medicine [address] [address] Luis Enrique Cheek MD E-prescribe Rx Request [...] appointment? No patient states no longer with [employer] (THE MEDICATION REQUESTED IS ON THE MED LIST ABOVE) All of the medications requested were on the CURRENT MEDS list No longer Patient of kassandra [employer] Did you check the Pharmacy information above?: YES Patient wants: 30 -day supply Is this a mail order prescription request ? NO If the refill is from a FAXED refill request what is the RX # listed on the fax? N/A Patients current insurance carrier is: [place] / Plan: MEDICARE-[employer] / Product Type: MEDICARE [id number] documented in this encounter Plan of Treatment Not on file documented as of this encounter Visit Diagnoses Not on filedocumented in this encounter Care Teams Federal Judicial Law Clerk Relationship Specialty Start Date End Date Luis Enrique Cheek MD PCP - General Internal Medicine 09/19/15 05/20/19 Corinne Figueroa MD PCP - General Internal Medicine 05/21/19 Landen Collado PA-C [address] [place] [address] [place] [address] Specialist Neurosurgery 04/03/21 documented as of this encounter
--- OUTSIDE RECORDS SUMMARY | 2024-05-18 17:35 | XMS_ITS | Encounter Summary ---
Author Organization [facility] Address [address] [place] [address] Care Team Providers Care Supervisor Television Chassis Repair Name Role Phone Luis Enrique Cheek MD Primary Care Provider Corinne De La O MD Primary Care Provider Landen Josue PA-C Unavailable [phone] Reason for Visit * Reason Comments E-prescribe Rx Request Encounter Details Date Type Department Care Team Description 05/12/2017 Refill Adult Medicine [address] [address] Hilda Burger APRN E-prescribe Rx Request Social [...] an upcoming appointment? [facility] to refill request. Appt due (THE MEDICATION REQUESTED IS ON THE MED LIST ABOVE) All of the medications requested were on the CURRENT MEDS list Did you check the Pharmacy information above?: YES Patient wants: 30 -day supply Is this a mail order prescription request ? NO Patients current insurance carrier is: Payor: [employer] FFS / Plan: [employer] / Product Type: MEDICAID RISK documented in this encounter Plan of Treatment Not on file documented as of this encounter Visit Diagnoses Not on filedocumented in this encounter Care Teams Supervisor Television Chassis Repair Relationship Specialty Start Date End Date Luis Enrique Cheek MD PCP - General Internal Medicine 09/19/15 05/20/19 Corinne Figueroa MD PCP - General Internal Medicine 05/21/19 Landen Collado PA-C [address] [place] [address] [place] [address] Specialist Neurosurgery 04/03/21 documented as of this encounter
--- OUTSIDE RECORDS SUMMARY | 2024-05-18 17:35 | XMS_ITS | Encounter Summary ---
Author Organization [facility] Address [address] [place] [address] Care Team Providers Care Utility Bill Collector Name Role Phone Luis Enrique Cheek MD Primary Care Provider Corinne De La O MD Primary Care Provider Landen Josue PA-C Unavailable [phone] Reason for Visit * Reason Onset Date Comments refill request 08/19/2018 Encounter Details Date Type Department Care Team Description 08/19/2018 Refill Physiatry - [address] [address] Jamal Mir DO refill request Social History [...] N/A Patients current insurance carrier is: Payor: [facility] [employer] MCR / Plan: [facility] / Product Type: HMO Hit-din-Mhrphhx documented in this encounter Plan of Treatment Not on file documented as of this encounter Visit Diagnoses Diagnosis Spinal stenosis of lumbar region with neurogenic claudication Spinal stenosis, lumbar region, with neurogenic claudication Lumbar radiculitis Thoracic or lumbosacral neuritis or radiculitis, unspecified Osteoarthritis of spine with radiculopathy, lumbar region Muscle cramps Cramp of limb documented in this encounter Care Teams Utility Bill Collector Relationship Specialty Start Date End Date Luis Enrique Cheek MD PCP - General Internal Medicine 09/19/15 05/20/19 Corinne Figueroa MD PCP - General Internal Medicine 05/21/19 Landen Collado PA-C [address] [place] [address] Specialist Neurosurgery 04/03/21 documented as of this encounter
--- OUTSIDE RECORDS SUMMARY | 2024-05-18 17:35 | XMS_ITS | Encounter Summary ---
Author Organization [facility] Address [address] [place] [address] Care Team Providers Care Traverse Rod Assembler Name Role Phone Luis Enrique Cheek MD Primary Care Provider Luis Enrique Granados MD Primary Care Provider Luis Enrique Granados MD Primary Care Provider Corinne De La O MD Primary Care Provider Landen Josue PA-C Unavailable [phone] Encounter Details Date Type Department Care Team Description 01/23/2015 [facility] Medical Records [address] [place] [address] Pradeep Hennessy MD Social History Tobacco Use [...] on filedocumented in this encounter Care Teams Traverse Rod Assembler Relationship Specialty Start Date End Date Luis Enrique Cheek MD PCP - General Internal Medicine 06/09/14 09/09/15 Luis Enrique Cheek MD PCP - General Internal Medicine 09/10/15 09/18/15 Luis Enrique Cheek MD PCP - General Internal Medicine 09/19/15 05/20/19 Corinne Figueroa MD PCP - General Internal Medicine 05/21/19 Landen Collado PA-C 273 [facility] [address] [place] [address] Specialist Neurosurgery 04/03/21 documented as of this encounter
--- OUTSIDE RECORDS SUMMARY | 2024-05-18 17:35 | XMS_ITS | Encounter Summary ---
Author Organization [facility] Address [address] [place] [address] Care Team Providers Care Burning Machine Operator Name Role Phone Luis Enrique Cheek MD Primary Care Provider Corinne De La O MD Primary Care Provider Landen Josue PA-C Unavailable [phone] Encounter Details Date Type Department Care Team Description 03/17/2016 [facility] Medical Records [address] [place] [address] Foreign Garcia Social History Tobacco Use Types [...] on filedocumented in this encounter Care Teams Burning Machine Operator Relationship Specialty Start Date End Date Luis Enrique Cheek MD PCP - General Internal Medicine 09/19/15 05/20/19 Corinne Figueroa MD PCP - General Internal Medicine 05/21/19 Landen Collado PA-C 175 [facility] [address] [place] [address] Specialist Neurosurgery 04/03/21 documented as of this encounter
--- OUTSIDE RECORDS SUMMARY | 2024-05-18 17:35 | XMS_ITS | Encounter Summary ---
Author Organization [facility] Address [address] [place] [address] Care Team Providers Care Feed Mill Lab Technician Name Role Phone Luis Enrique Cheek MD Primary Care Provider Corinne De La O MD Primary Care Provider Landen Josue PA-C Unavailable [phone] Reason for Visit * Reason Comments E-prescribe Rx Request Encounter Details Date Type Department Care Team Description 03/08/2018 Refill Physiatry - [place] [address] [place] [address] Jamal Mir DO E-prescribe Rx Request Social [...] limb documented in this encounter Care Teams Feed Mill Lab Technician Relationship Specialty Start Date End Date Luis Enrique Cheek MD PCP - General Internal Medicine 09/19/15 05/20/19 Corinne Figueroa MD PCP - General Internal Medicine 05/21/19 Landen Collado PA-C [address] [place] [address] Specialist Neurosurgery 04/03/21 documented as of this encounter
--- OUTSIDE RECORDS SUMMARY | 2024-05-18 17:35 | XMS_ITS | Encounter Summary ---
Author Organization [facility] Address [address] [place] [address] Care Team Providers Care Section Housekeeper Name Role Phone Corinne Figueroa MD Primary Care Provider Landen Josue PA-C Unavailable [phone] Reason for Visit * Reason Comments E-prescribe Rx Request Encounter Details Date Type Department Care Team Description 11/18/2019 Refill Physiatry - [place] [address] [place] [address] Jamal Mir DO E-prescribe Rx Request Social [...] limb documented in this encounter Care Teams Section Housekeeper Relationship Specialty Start Date End Date Corinne Figueroa MD PCP - General Internal Medicine 05/21/19 Landen Collado PA-C [address] [place] [address] Specialist Neurosurgery 04/03/21 documented as of this encounter
--- OUTSIDE RECORDS SUMMARY | 2024-05-18 17:35 | XMS_ITS | Encounter Summary ---
Author Organization [facility] Address [address] [place] [address] Care Team Providers Care Personal Service Representative Name Role Phone Luis Enrique Cheek MD Primary Care Provider Corinne De La O MD Primary Care Provider Landen Josue PA-C Unavailable [phone] Encounter Details Date Type Department Care Team Description 11/07/2015 Controlled Substance Plan Medical Records [address] [place] [address] Abstract, Provider Social History Tobacco Use Types [...] on filedocumented in this encounter Care Teams Personal Service Representative Relationship Specialty Start Date End Date Luis Enrique Cheek MD PCP - General Internal Medicine 09/19/15 05/20/19 Corinne Figueroa MD PCP - General Internal Medicine 05/21/19 Landen Collado PA-C 175 [facility] [address] [place] [address] Specialist Neurosurgery 04/03/21 documented as of this encounter
--- OUTSIDE RECORDS SUMMARY | 2024-05-18 17:35 | XMS_ITS | Encounter Summary ---
Author Organization [facility] Address [address] [place] [address] Care Team Providers Care Supervisor Sound Technician Name Role Phone Luis Enrique Cheek MD Primary Care Provider Corinne De La O MD Primary Care Provider Landen Josue PA-C Unavailable [phone] Reason for Visit * Reason Comments E-prescribe Rx Request Encounter Details Date Type Department Care Team Description 08/11/2016 Refill Adult Medicine [address] [address] Luis Enrique Cheek MD E-prescribe Rx Request [...] NO Patients current insurance carrier is: Payor: [facility] MEDICAID / Plan: [facility] MEDICAID HMO $0 [place] / Product Type: HMO Wtr-ori-Spwylla documented in this encounter Plan of Treatment Not on file documented as of this encounter Visit Diagnoses Not on filedocumented in this encounter Care Teams Supervisor Sound Technician Relationship Specialty Start Date End Date Luis Enrique Cheek MD PCP - General Internal Medicine 09/19/15 05/20/19 Corinne Figueroa MD PCP - General Internal Medicine 05/21/19 Landen Collado PA-C [address] [place] [address] Specialist Neurosurgery 04/03/21 documented as of this encounter
--- OUTSIDE RECORDS SUMMARY | 2024-05-18 17:35 | XMS_ITS | Encounter Summary ---
Author Organization [facility] Address [address] [place] [address] Care Team Providers Care Apple Sorter Name Role Phone Luis Enrique Cheek MD Primary Care Provider Corinne De La O MD Primary Care Provider Landen Josue PA-C Unavailable [phone] Encounter Details Date Type Department Care Team Description 03/15/2016 [facility] Medical Records [address] [place] [address] Torsten Samano MD Social History Tobacco Use [...] on filedocumented in this encounter Care Teams Apple Sorter Relationship Specialty Start Date End Date Luis Enrique Cheek MD PCP - General Internal Medicine 09/19/15 05/20/19 Corinne Figueroa MD PCP - General Internal Medicine 05/21/19 Landen Collado PA-C 175 [facility] [address] [place] [address] Specialist Neurosurgery 04/03/21 documented as of this encounter
--- OUTSIDE RECORDS SUMMARY | 2024-05-18 17:35 | XMS_ITS | Encounter Summary ---
Author Organization [facility] Address [address] [place] [address] Care Team Providers Care Suspender Maker Name Role Phone Luis Enrique Cheek MD Primary Care Provider Corinne De La O MD Primary Care Provider Landen Josue PA-C Unavailable [phone] Encounter Details Date Type Department Care Team Description 05/08/2017 [facility] Medical Records [address] [place] [address] Mika Villanueva MD Social History Tobacco Use [...] on filedocumented in this encounter Care Teams Suspender Maker Relationship Specialty Start Date End Date Luis Enrique Cheek MD PCP - General Internal Medicine 09/19/15 05/20/19 Corinne Figueroa MD PCP - General Internal Medicine 05/21/19 Landen Collado PA-C 175 [facility] [address] [place] [address] Specialist Neurosurgery 04/03/21 documented as of this encounter
--- OUTSIDE RECORDS SUMMARY | 2024-05-18 17:35 | XMS_ITS | Encounter Summary ---
Author Organization [facility] Address [address] [place] [address] Care Team Providers Care Tile Fitter Name Role Phone Luis Enrique Cheek MD Primary Care Provider Luis Enrique Granados MD Primary Care Provider Luis Enrique Granados MD Primary Care Provider Corinne De La O MD Primary Care Provider Landen Josue PA-C Unavailable [phone] Encounter Details Date Type Department Care Team Description 03/01/2015 [facility] Medical Records [address] [place] [address] Raeann Mota DPM Social History Tobacco Use [...] on filedocumented in this encounter Care Teams Tile Fitter Relationship Specialty Start Date End Date Luis Enrique Cheek MD PCP - General Internal Medicine 06/09/14 09/09/15 Luis Enrique Cheek MD PCP - General Internal Medicine 09/10/15 09/18/15 Luis Enrique Cheek MD PCP - General Internal Medicine 09/19/15 05/20/19 Corinne Figueroa MD PCP - General Internal Medicine 05/21/19 Landen Collado PA-C 9[address] [facility] [address] [place] [address] Specialist Neurosurgery 04/03/21 documented as of this encounter
--- OUTSIDE RECORDS SUMMARY | 2024-05-18 17:35 | XMS_ITS | Encounter Summary ---
Author Organization [facility] Address [address] [place] [address] Care Team Providers Care Client Services Analyst Name Role Phone Corinne Figueroa MD Primary Care Provider Landen Josue PA-C Unavailable [phone] Reason for Visit * Reason Onset Date Comments Pain, Post Operative 05/08/2021 Encounter Details Date Type Department Care Team Description 05/08/2021 Telephone [facility] Neurosurgery [place] 175 [facility] [address] [place] [id number] Landen Collado PA-C [address] [address] Pain, Post Operative Social History Tobacco Use [...] filedocumented in this encounter Care Teams Client Services Analyst Relationship Specialty Start Date End Date Corinne Figueroa MD PCP - General Internal Medicine 05/21/19 Landen Collado PA-C [address] [place] [address] Specialist Neurosurgery 04/03/21 documented as of this encounter
--- OUTSIDE RECORDS SUMMARY | 2024-05-18 17:35 | XMS_ITS | Encounter Summary ---
Author Organization [facility] Address [address] [place] [address] Care Team Providers Care Penciller Name Role Phone Luis Enrique Cheek MD Primary Care Provider Corinne De La O MD Primary Care Provider Landen Josue PA-C Unavailable [phone] Encounter Details Date Type Department Care Team Description 11/01/2016 [facility] Medical Records [address] [place] [address] Deacon Ana Social History Tobacco Use Types [...] on filedocumented in this encounter Care Teams Penciller Relationship Specialty Start Date End Date Luis Enrique Cheek MD PCP - General Internal Medicine 09/19/15 05/20/19 Corinne Figueroa MD PCP - General Internal Medicine 05/21/19 Landen Collado PA-C 175 [facility] [address] [place] [address] Specialist Neurosurgery 04/03/21 documented as of this encounter
--- OUTSIDE RECORDS SUMMARY | 2024-05-18 17:35 | XMS_ITS | Encounter Summary ---
Author Organization [facility] Address [address] [place] [address] Care Team Providers Care Physician Internist Name Role Phone Corinne Figueroa MD Primary Care Provider Landen Josue PA-C Unavailable [phone] Encounter Details Date Type Department Care Team Description 06/06/2020 Ethylbenzene Oxidizer Report Medical Records [address] [place] [address] Abstract, Provider Social History Tobacco Use Types [...] on filedocumented in this encounter Care Teams Physician Internist Relationship Specialty Start Date End Date Corinne Figueroa MD PCP - General Internal Medicine 05/21/19 Landen Collado PA-C 175 [facility] [address] [place] [address] Specialist Neurosurgery 04/03/21 documented as of this encounter
--- OUTSIDE RECORDS SUMMARY | 2024-05-18 17:35 | XMS_ITS | Encounter Summary ---
Author Organization [facility] Address [address] [place] [address] Care Team Providers Care Treadle Cut Off Saw Operator Name Role Phone Luis Enrique Cheek MD Primary Care Provider Corinne De La O MD Primary Care Provider Landen Josue PA-C Unavailable [phone] Reason for Visit * Reason Onset Date Comments Provider Call Back 05/25/2018 Encounter Details Date Type Department Care Team Description 05/25/2018 Telephone Physiatry - [address] [address] Jamal Mir DO Provider Call Back Social [...] on filedocumented in this encounter Care Teams Treadle Cut Off Saw Operator Relationship Specialty Start Date End Date Luis Enrique Cheek MD PCP - General Internal Medicine 09/19/15 05/20/19 Corinne Figueroa MD PCP - General Internal Medicine 05/21/19 Landen Collado PA-C [address] [place] [address] Specialist Neurosurgery 04/03/21 documented as of this encounter
--- OUTSIDE RECORDS SUMMARY | 2024-05-18 17:35 | XMS_ITS | Encounter Summary ---
Author Organization [facility] Address [address] [place] [address] Care Team Providers Care Vp Scientific Name Role Phone Luis Enrique Cheek MD Primary Care Provider Corinne De La O MD Primary Care Provider Landen Josue PA-C Unavailable [phone] Reason for Visit * Reason Comments E-prescribe Rx Request Encounter Details Date Type Department Care Team Description 12/18/2017 Refill Adult Medicine [address] [address] Luis Enrique Cheek MD E-prescribe Rx Request [...] an upcoming appointment? [facility] for [facility] [...] insurance carrier is: [place] / Plan: MEDICARE-[employer] / Product Type: MEDICARE [id number] documented in this encounter Plan of Treatment Not on file documented as of this encounter Visit Diagnoses Not on filedocumented in this encounter Care Teams Vp Scientific Relationship Specialty Start Date End Date Luis Enrique Cheek MD PCP - General Internal Medicine 09/19/15 05/20/19 Corinne Figueroa MD PCP - General Internal Medicine 05/21/19 Landen Collado PA-C [address] [place] [address] Specialist Neurosurgery 04/03/21 documented as of this encounter
--- OUTSIDE RECORDS SUMMARY | 2024-05-18 17:35 | XMS_ITS | Encounter Summary ---
Author Organization [facility] Address [address] [place] [address] Care Team Providers Care Associate Producer Name Role Phone Luis Enrique Cheek MD Primary Care Provider Corinne De La O MD Primary Care Provider Landen Josue PA-C Unavailable [phone] Reason for Visit * Reason Comments E-prescribe Rx Request Encounter Details Date Type Department Care Team Description 02/25/2017 Refill Adult Medicine [address] [address] Luis Enrique Cheek MD E-prescribe Rx Request [...] NO Patients current insurance carrier is: Payor: [facility] MEDICAID / Plan: [facility] MEDICAID HMO [id number] [place] / Product Type: HMO [id number] documented in this encounter Plan of Treatment Not on file documented as of this encounter Visit Diagnoses Not on filedocumented in this encounter Care Teams Associate Producer Relationship Specialty Start Date End Date Luis Enrique Cheek MD PCP - General Internal Medicine 09/19/15 05/20/19 Corinne Figueroa MD PCP - General Internal Medicine 05/21/19 Landen Collado PA-C [address] [place] [address] Specialist Neurosurgery 04/03/21 documented as of this encounter
--- OUTSIDE RECORDS SUMMARY | 2024-05-18 17:35 | XMS_ITS | Encounter Summary ---
Author Organization [facility] Address [address] [place] [address] Care Team Providers Care Security Team Lead Name Role Phone Luis Enrique Cheek MD Primary Care Provider Corinne De La O MD Primary Care Provider Landen Josue PA-C Unavailable [phone] Encounter Details Date Type Department Care Team Description 12/05/2015 [facility] Medical Records [address] [place] [address] Abstract, Provider Social History Tobacco Use Types [...] filedocumented in this encounter Care Teams Security Team Lead Relationship Specialty Start Date End Date Luis Enrique Cheek MD PCP - General Internal Medicine 09/19/15 05/20/19 Corinne Figueroa MD PCP - General Internal Medicine 05/21/19 Landen Collado PA-C 175 [facility] [address] [place] [address] Specialist Neurosurgery 04/03/21 documented as of this encounter
--- OUTSIDE RECORDS SUMMARY | 2024-05-18 17:35 | XMS_ITS | Encounter Summary ---
Author Organization [facility] Address [address] [place] [address] Care Team Providers Care Hotel Front Desk Clerk Name Role Phone Luis Enrique Cheek MD Primary Care Provider Luis Enrique Granados MD Primary Care Provider Luis Enrique Granados MD Primary Care Provider Corinne De La O MD Primary Care Provider Landen Josue PA-C Unavailable [phone] Reason for Visit * Reason Onset Date Comments Provider Call Back 03/03/2015 Encounter Details Date Type Department Care Team Description 03/03/2015 Telephone Adult [address] [address] Luis Enrique Cheek MD Provider Call Back [...] on filedocumented in this encounter Care Teams Hotel Front Desk Clerk Relationship Specialty Start Date End Date Luis Enrique Cheek MD PCP - General Internal Medicine 06/09/14 09/09/15 Luis Enrique Cheek MD PCP - General Internal Medicine 09/10/15 09/18/15 Luis Enrique Cheek MD PCP - General Internal Medicine 09/19/15 05/20/19 Corinne Figueroa MD PCP - General Internal Medicine 05/21/19 Landen Collado PA-C [address] [place] [address] Specialist Neurosurgery 04/03/21 documented as of this encounter
== END 2024-05-18 15:15 | disposition home or self-care (01) ==
LOC: HO.PMCPRC 14:43
PROVIDERS: PCP Internal Medicine; Visit Provider Anesthesiology
DX: M70.61 Trochanteric bursitis, right hip (principal); M25.551 Pain in right hip; M16.11 Unilateral primary osteoarthritis, right hip
CPT/HCPCS: 20610; 77002

== ENCOUNTER 2024-05-24 15:32 | Outpatient (AMB) | payer OTHER, SELFPAY ==
--- NOTE | 2024-05-24 15:37 | MHC.OFFVIS ---
Vital Signs 05/24/24 15:41 Height 5 ft 7 in BMI Reason not done Patient refused/unable BP 139/66 Blood Pressure Location Rt brachial Position Sitting Pulse 68 Pulse Source Pulse Oximeter Intake Visit Reasons: Pain After Hip Inj. Intake Note: Pain today 8.5/10 Protective Services Social Worker Required: No Accompanied by: Self / Same As Patient Allergies Iodinated Contrast Media [Iodinated Contrast Media - IV Dye] Allergy (Intermediate, Verified 05/24/24 15:42) HIVES ketorolac [From Toradol] Allergy (Intermediate, Verified 05/24/24 15:42) localized redness/swelling HPI Comments Details: Therese is back in my office today after therapeutic right hip injection. We used Gadavist and Decadron because patient is allergic to IV iodine contrast as well as problems with the eyes and her licensing services clerk request as us knows to inject long acting steroids to the patient. Unfortunately patient reported no pain improvement at all after the injection. Before that she received repeated therapeutic sacroiliac joint injection which also was not very successful to alleviate her pain. She requests me to prescribe her some muscle relaxants to help her pain. I agreed to prescribe her baclofen. Prior: She is status post caudal BETSEY and right GTB injection on 08/21/22 and Right Therapeutic SIJ injection on 07/24/22 . Caudal BETSEY provided 80% pain relief for radicular back symptoms with improvement in her daily functions and activities. That lasted 3 weeks only. I cannot consider caudal BETSEY repeatin the future for her. 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 the therapeutic injections are impossible to treat her pain in the future. MBB resulted in no pain improvement. I think neuromodulation would be very good thing to do for this patient. MBB resulted in no pain improvement. History of axial pain and pain exacerbated with prolonged sitting give the makes me think about vertebrogenic pain. She went for MRI which demonstrated vertebral Modic type changes. However given the choice between spinal cord stimulator and intrathecal pain pump pain relief for this patient which do not require steroid administration and intercept procedure which might require significant doses of steroids I decided to proceed with neuromodulation as Nevro SCS and I DDD [employer]. Nevro SCS was tried on her. She dislodged her electrode due to severe heaving, nausea and vomiting at least 1 full vertebral body down however the top electrode still was positioned at the top of T9 which could potentially give us significant pain relief due to stimulation. However patient denied any help from stimulation. Intrathecal pain pump was discussed in the past with the patient however she is reluctant to go for the procedure. [facility] Medical History Seizure disorder Syncope Cervical spondylosis with radiculopathy Cervical radiculopathy Cervical strain Neck pain Hematoma following procedure Calf pain Incisional pain Postoperative bleeding from incision Cellulitis Anemia Anxiety with depression Fatty liver Back pain Arthritis Abscess or cellulitis of knee Skin laxity Hyperlipidemia GERD (gastroesophageal reflux disease) COVID-19 vaccine administered Postlaminectomy syndrome Bunion of left foot Postconcussion syndrome Labral tear of right hip joint Spinal stenosis Colon polyps Allergic rhinitis Herpes Chronic sinusitis Depression Migraines Asthma Hypotension Malabsorption due to intolerance, not elsewhere classified Surgical History Hx of spinal fusion S/P plastic surgery S/P panniculectomy History of hip surgery History of endometrial ablation S/P tonsillectomy S/P bilateral foot surgery History of appendectomy H/O colonoscopy H/O endoscopy S/P laparoscopic sleeve gastrectomy H/O laminectomy Family History Father No problems noted. Mother Cervical spine tumor Brother No problems noted. Brother No problems noted. Brother No problems noted. Brother No problems noted. Sister Mental health disorder Son No problems noted. Daughter No problems noted. Social History Household Members: Spouse Housing: House Are you a primary youth care specialist to a significant other at home: No Do you presently have visiting nurse or other home services: No Unable to assess alcohol history related to: Unknown Alcohol intake: former Comment: count correct Patient Tobacco Use Status: Never used Tobacco e-Cigarette/Vaping Use: Never Used Second Hand Smoke Exposure: No Substance Use Type: Marijuana Advance Directives Date on File: 10/28/23 service: No Current occupational status: disabled Cognitive needs: No Hearing needs: No Vision needs: No Review of Systems Const All systems reviewed & are unremarkable except as noted in HPI and below ENT Reports Normal hearing present Neuro Reports Normal hearing present and Denies confusion Psych Denies confusion Physical Exam Vital Signs: Last Vital Signs Pulse 68 05/24/24 15:41 BP 139/66 05/24/24 15:41 Const General: cooperative, alert and awake; No confusion Orientation/consciousness: patient oriented x3 and No confusion Resp Effort & Inspection: able to speak in complete sentences, no audible wheezes and no cough Back/Spine/Pelvis Other: Loading test is positive bilaterally tenderness on palpation on lower lumbar and mid lumbar spine, paraspinal regions are less tender on palpation in the area however also cause significant tenderness. Flexing forward and flexing backwards both aggravate pain with flexing backwards to be more aggravating than flexing forward. Pillo test, Gaenslen test, pelvic compression and pelvic distraction test, 14 finger test are all positive on the right. Neuro General: patient oriented x3 and No confusion Cranial nerves: Yes Normal hearing present Cognition (Neuro): normal cognition Extrem Other: Lateral and medial rotation of the right hip causes discomfort in the groin more lateral than medial. Psych Mental Status: mental status grossly normal Speech and movement: Clear speech present Affect: normal affect Attitude: cooperative Thought process: Normal thought process present Thought content: Normal thought content present and No Depressive thoughts present Insight: Good insight present (Psych) Judgement: Good judgement present (Psych) Assessment & Plan Assessment & Plan (1) Trochanteric bursitis of right hip: Code(s): M70.61 - Trochanteric bursitis, right hip Category: Medical (2) Lumbosacral spondylosis with radiculopathy: Code(s): M47.27 - Other spondylosis with radiculopathy, lumbosacral region Category: Medical (3) Right hip pain: Code(s): M25.551 - Pain in right hip Category: Medical (4) Failed back syndrome, lumbar: Code(s): M96.1 - Postlaminectomy syndrome, not elsewhere classified Category: Medical Plan: (5) Chronic pain syndrome: Code(s): G89.4 - Chronic pain syndrome Category: Medical (6) Vertebrogenic low back pain: Code(s): M54.51 - Vertebrogenic low back pain Category: Medical (7) Spondylosis of lumbar region without myelopathy or radiculopathy: Code(s): M47.816 - Spondylosis without myelopathy or radiculopathy, lumbar region Category: Medical (8) Osteoarthritis of right hip: Code(s): M16.11 - Unilateral primary osteoarthritis, right hip Category: Medical Plan Patient is status post caudal BETSEY and right GTB injection on 08/21/22 and Right Therapeutic SIJ injection on 07/24/22 . Caudal BETSEY provided 80% pain relief for radicular back symptoms with improvement in her daily functions and activities. That lasted 3 weeks only. Sacroiliac joint injection which was performed on 04/18/2024 was not effective to control her pain. Right hip Decadron injection which was done on 05/18/2024 resulted in no pain improvement. In the past she tried Nevro SCS in the past it did not alleviate her pain. Her licensing services clerk agreed to use short-acting steroid injections. She requested me to prescribe her some muscle relaxants. I prescribed her baclofen as below. She was suspended in our opioid program due to missing 3 pills out of her pill count. Because of high-risk she was suspended indefinitely. She is requesting to be reinstated in the program. Medications: New baclofen 10 mg PO TID 90 tabs 6RF 30 days Patient Instructions: I here by testify that I spent 30 minutes in conversation of this patient as well as planning her care evaluating prior records and organizing this note. Coding Level of Care Code Est Pt Level 4 (41829) Diagnoses Trochanteric bursitis of right hip M70.61 Lumbosacral spondylosis with radiculopathy M47.27 Right hip pain M25.551 Failed back syndrome, lumbar M96.1 Chronic pain syndrome G89.4 Vertebrogenic low back pain M54.51 Spondylosis of lumbar region without myelopathy or radiculopathy M47.816 Osteoarthritis of right hip M16.11
[2024-05-24 15:41] VITALS: BP 139/66; PULSE 68
--- OUTSIDE RECORDS SUMMARY | 2024-05-24 18:18 | XMS_ITS | Encounter Summary ---
Author Organization [facility] Address [address] [place] [address] Care Team Providers Care Solid Propellant Processor Name Role Phone Luis Enrique Cheek MD Primary Care Provider Corinne De La O MD Primary Care Provider Landen Josue PA-C Unavailable [phone] Encounter Details Date Type Department Care Team Description 09/20/2015 Transfer Records Medical Records [address] [place] [address] Abstract, Provider Social History Tobacco Use Types [...] on filedocumented in this encounter Care Teams Solid Propellant Processor Relationship Specialty Start Date End Date Luis Enrique Cheek MD PCP - General Internal Medicine 09/19/15 05/20/19 Corinne Figueroa MD PCP - General Internal Medicine 05/21/19 Landen Collado PA-C 175 [facility] [address] [place] [address] Specialist Neurosurgery 04/03/21 documented as of this encounter
--- OUTSIDE RECORDS SUMMARY | 2024-05-24 18:18 | XMS_ITS | Encounter Summary ---
Author Organization [facility] Address [address] [place] [address] Care Team Providers Care Assistant In Nursing Name Role Phone Corinne Figueroa MD Primary Care Provider Landen Josue PA-C Unavailable [phone] Encounter Details Date Type Department Care Team Description 04/04/2021 Release of Information Medical Records [address] [place] [address] Abstract, Provider Social History Tobacco Use Types [...] filedocumented in this encounter Care Teams Assistant In Nursing Relationship Specialty Start Date End Date Corinne Figueroa MD PCP - General Internal Medicine 05/21/19 Landen Collado PA-C 175 [facility] [address] [place] [address] Specialist Neurosurgery 04/03/21 documented as of this encounter
--- OUTSIDE RECORDS SUMMARY | 2024-05-24 18:18 | XMS_ITS | Encounter Summary ---
Author Organization [facility] Address [address] [place] [address] Care Team Providers Care Department Operations Manager Name Role Phone Luis Enrique Cheek MD Primary Care Provider Corinne De La O MD Primary Care Provider Landen Josue PA-C Unavailable [phone] Encounter Details Date Type Department Care Team Description 09/21/2018 Refill Adult Medicine [address] [address] Luis Enrique Cheek MD Social History Tobacco [...] an upcoming appointment? [facility] for [facility] [...] N/A Patients current insurance carrier is: [facility] / Plan: [facility] / Product Type: HMO [id number] documented in this encounter Plan of Treatment Not on file documented as of this encounter Visit Diagnoses Not on filedocumented in this encounter Care Teams Department Operations Manager Relationship Specialty Start Date End Date Luis Enrique Cheek MD PCP - General Internal Medicine 09/19/15 05/20/19 Corinne Figueroa MD PCP - General Internal Medicine 05/21/19 Landen Collado PA-C [address] [place] [address] Specialist Neurosurgery 04/03/21 documented as of this encounter
--- OUTSIDE RECORDS SUMMARY | 2024-05-24 18:18 | XMS_ITS | Encounter Summary ---
Author Organization [facility] Address [address] [place] [address] Care Team Providers Care Junior High Math Teacher Name Role Phone Luis Enrique Cheek MD Primary Care Provider Corinne De La O MD Primary Care Provider Landen Josue PA-C Unavailable [phone] Encounter Details Date Type Department Care Team Description 11/01/2016 [facility] Medical Records [address] [place] [address] Deacon Ana Social History Tobacco Use Types [...] on filedocumented in this encounter Care Teams Junior High Math Teacher Relationship Specialty Start Date End Date Luis Enrique Cheek MD PCP - General Internal Medicine 09/19/15 05/20/19 Corinne Figueroa MD PCP - General Internal Medicine 05/21/19 Landen Collado PA-C [address] [facility] [address] [place] [address] Specialist Neurosurgery 04/03/21 documented as of this encounter
--- OUTSIDE RECORDS SUMMARY | 2024-05-24 18:18 | XMS_ITS | Encounter Summary ---
Author Organization [facility] Address [address] [place] [address] Care Team Providers Care Knuckle Strap Sewer Name Role Phone Luis Enrique Cheek MD Primary Care Provider Luis Enrique Granados MD Primary Care Provider Luis Enrique Granados MD Primary Care Provider Corinne De La O MD Primary Care Provider Landen Josue PA-C Unavailable [phone] Encounter Details Date Type Department Care Team Description 02/21/2015 Recovery Engineer Report Medical Records [address] [place] [address] Selwyn Oliva Social History Tobacco Use Types [...] on filedocumented in this encounter Care Teams Knuckle Strap Sewer Relationship Specialty Start Date End Date Luis Enrique Cheek MD PCP - General Internal Medicine 06/09/14 09/09/15 Luis Enrique Cheek MD PCP - General Internal Medicine 09/10/15 09/18/15 Luis Enrique Cheek MD PCP - General Internal Medicine 09/19/15 05/20/19 Corinne Figueroa MD PCP - General Internal Medicine 05/21/19 Landen Collado PA-C [address] [facility] [address] [place] [address] Specialist Neurosurgery 04/03/21 documented as of this encounter
--- OUTSIDE RECORDS SUMMARY | 2024-05-24 18:18 | XMS_ITS | Encounter Summary ---
Author Organization [facility] Address [address] [place] [address] Care Team Providers Care Environmental Services Manager Name Role Phone Luis Enrique Cheek MD Primary Care Provider Corinne De La O MD Primary Care Provider Landen Josue PA-C Unavailable [phone] Reason for Visit * Reason Onset Date Comments Provider Call Back 12/04/2016 injection 12/04/2016 Encounter Details Date Type Department Care Team Description 12/04/2016 Telephone Adult Medicine [address] [address] Luis Enrique Cheek MD Provider Call Back; [...] naproxen and robaxin called into [facility] [place]. She will notify office if no improvement [...] patient would like a call back at [phone] * Telephone Encounter - Renetta Tolentino L.P.N. [...] on filedocumented in this encounter Care Teams Environmental Services Manager Relationship Specialty Start Date End Date Luis Enrique Cheek MD PCP - General Internal Medicine 09/19/15 05/20/19 Corinne Figueroa MD PCP - General Internal Medicine 05/21/19 Landen Collado PA-C [address] [place] [address] Specialist Neurosurgery 04/03/21 documented as of this encounter
--- OUTSIDE RECORDS SUMMARY | 2024-05-24 18:18 | XMS_ITS | Encounter Summary ---
Author Organization [facility] Address [address] [place] [address] Care Team Providers Care Chimney Builder Name Role Phone Luis Enrique Cheek MD Primary Care Provider Corinne De La O MD Primary Care Provider Landen Josue PA-C Unavailable [phone] Reason for Visit * Reason Onset Date Comments Testing 02/27/2017 Ct Scan Abdomen Encounter Details Date Type Department Care Team Description 02/27/2017 Telephone Adult Medicine B - [place] [address] [place] [address] Luis Enrique Cheek MD Testing (Ct Scan [...] Dr [place]ek, [place] [id number] [place] Scan of Abd. The Insurance has denied code [id number] but is willing to approve code [id number]. A new order is needed for code [id number] if you are in agreement with this request. Thanks, Jaida Cobb Auth Dept. documented in this encounter Plan of Treatment Not on file documented as of this encounter Visit Diagnoses Diagnosis Right upper quadrant abdominal pain- Primary Abdominal pain, right upper quadrant documented in this encounter Care Teams Chimney Builder Relationship Specialty Start Date End Date Luis Enrique Cheek MD PCP - General Internal Medicine 09/19/15 05/20/19 Corinne Figueroa MD PCP - General Internal Medicine 05/21/19 Landen Collado PA-C [address] [place] [address] Specialist Neurosurgery 04/03/21 documented as of this encounter
--- OUTSIDE RECORDS SUMMARY | 2024-05-24 18:18 | XMS_ITS | Encounter Summary ---
Author Organization [facility] Address [address] [place] [address] Care Team Providers Care Drug Abuse Program Coordinator Name Role Phone Luis Enrique Cheek MD Primary Care Provider Corinne De La O MD Primary Care Provider Landen Josue PA-C Unavailable [phone] Encounter Details Date Type Department Care Team Description 03/15/2016 [facility] Medical Records [address] [place] [address] Torsten Samano MD Social History Tobacco Use [...] on filedocumented in this encounter Care Teams Drug Abuse Program Coordinator Relationship Specialty Start Date End Date Luis Enrique Cheek MD PCP - General Internal Medicine 09/19/15 05/20/19 Corinne Figueroa MD PCP - General Internal Medicine 05/21/19 Landen Collado PA-C [address] [facility] [address] [place] [address] Specialist Neurosurgery 04/03/21 documented as of this encounter
--- OUTSIDE RECORDS SUMMARY | 2024-05-24 18:18 | XMS_ITS | Encounter Summary ---
Author Organization [facility] Address [address] [place] [address] Care Team Providers Care Media Aid Name Role Phone Luis Enrique Cheek MD Primary Care Provider Corinne De La O MD Primary Care Provider Landen Josue PA-C Unavailable [phone] Encounter Details Date Type Department Care Team Description 12/08/2018 [facility] Medical Records [address] [place] [address] Jamal Mir DO Social History Tobacco Use [...] on filedocumented in this encounter Care Teams Media Aid Relationship Specialty Start Date End Date Luis Enrique Cheek MD PCP - General Internal Medicine 09/19/15 05/20/19 Corinne Figueroa MD PCP - General Internal Medicine 05/21/19 Landen Collado PA-C 175 [facility] [address] [place] [address] Specialist Neurosurgery 04/03/21 documented as of this encounter
--- OUTSIDE RECORDS SUMMARY | 2024-05-24 18:18 | XMS_ITS | Encounter Summary ---
Author Organization [facility] Address [address] [place] [address] Care Team Providers Care Supervisor Television Chassis Repair Name Role Phone Luis Enrique Cheek MD Primary Care Provider Corinne De La O MD Primary Care Provider Landen Josue PA-C Unavailable [phone] Reason for Visit * Reason Comments E-prescribe Rx Request Encounter Details Date Type Department Care Team Description 11/21/2017 Refill Physiatry - [place] [address] [place] [address] Christine Boyer MD [address] [place] [address] [place] [address] E-prescribe Rx Request Social History Tobacco Use [...] region documented in this encounter Care Teams Supervisor Television Chassis Repair Relationship Specialty Start Date End Date Luis Enrique Cheek MD PCP - General Internal Medicine 09/19/15 05/20/19 Corinne Figueroa MD PCP - General Internal Medicine 05/21/19 Landen Collado PA-C [address] [place] [address] Specialist Neurosurgery 04/03/21 documented as of this encounter
--- OUTSIDE RECORDS SUMMARY | 2024-05-24 18:18 | XMS_ITS | Encounter Summary ---
Author Organization [facility] Address [address] [place] [address] Care Team Providers Care Director Of Early Childhood Education Name Role Phone Corinne Figueroa MD Primary Care Provider Landen Josue PA-C Unavailable Encounter Details Date Type Department Care Team Description 04/04/2021 SCAN [facility] Medical [facility] Neurosurgery [place] [address] [address] Slim Cervantes MD, PHD Social [...] in this encounter Care Teams Director Of Early Childhood Education Relationship Specialty Start Date End Date Corinne Figueroa MD PCP - General Internal Medicine 05/21/19 Landen Collado PA-C 175 [facility] [address] [place] [address] Specialist Neurosurgery 04/03/21 documented as of this encounter
--- OUTSIDE RECORDS SUMMARY | 2024-05-24 18:18 | XMS_ITS | Encounter Summary ---
Author Organization [facility] Address [address] [place] [address] Care Team Providers Care Medicaid Service Coordinator Name Role Phone Luis Enrique Cheek MD Primary Care Provider Luis Enrique Granados MD Primary Care Provider Luis Enrique Granados MD Primary Care Provider Corinne De La O MD Primary Care Provider Landen Josue PA-C Unavailable [phone] Encounter Details Date Type Department Care Team Description 04/12/2015 Refill Adult Medicine [address] [address] Luis Enrique Cheek MD Social History Tobacco [...] on filedocumented in this encounter Care Teams Medicaid Service Coordinator Relationship Specialty Start Date End Date Luis Enrique Cheek MD PCP - General Internal Medicine 06/09/14 09/09/15 Luis Enrique Cheek MD PCP - General Internal Medicine 09/10/15 09/18/15 Luis Enrique Cheek MD PCP - General Internal Medicine 09/19/15 05/20/19 Corinne Figueroa MD PCP - General Internal Medicine 05/21/19 Landen Collado PA-C [address] [place] [address] Specialist Neurosurgery 04/03/21 documented as of this encounter
--- OUTSIDE RECORDS SUMMARY | 2024-05-24 18:18 | XMS_ITS | Encounter Summary ---
Author Organization [facility] Address [address] [place] [address] Care Team Providers Care Ropeman Name Role Phone Luis Enrique Cheek MD Primary Care Provider Corinne De La O MD Primary Care Provider Landen Josue PA-C Unavailable [phone] Encounter Details Date Type Department Care Team Description 05/12/2018 [facility] Medical Records [address] [place] [address] Jamal Mir DO Social History Tobacco Use [...] on filedocumented in this encounter Care Teams Ropeman Relationship Specialty Start Date End Date Luis Enrique Cheek MD PCP - General Internal Medicine 09/19/15 05/20/19 Corinne Figueroa MD PCP - General Internal Medicine 05/21/19 Landen Collado PA-C [address] [facility] [address] [place] [address] Specialist Neurosurgery 04/03/21 documented as of this encounter
--- OUTSIDE RECORDS SUMMARY | 2024-05-24 18:18 | XMS_ITS | Encounter Summary ---
Author Organization [facility] Address [address] [place] [address] Care Team Providers Care Pharmacy Technician Program Director Name Role Phone Luis Enrique Cheek MD Primary Care Provider Corinne De La O MD Primary Care Provider Landen Josue PA-C Unavailable [phone] Encounter Details Date Type Department Care Team Description 09/21/2015 [facility] Medical Records [address] [place] [id number] Abstract, Provider Social History Tobacco Use Types [...] on filedocumented in this encounter Care Teams Pharmacy Technician Program Director Relationship Specialty Start Date End Date Luis Enrique Cheek MD PCP - General Internal Medicine 09/19/15 05/20/19 Corinne Figueroa MD PCP - General Internal Medicine 05/21/19 Landen Collado PA-C [address] [facility] [address] [place] [address] Specialist Neurosurgery 04/03/21 documented as of this encounter
--- OUTSIDE RECORDS SUMMARY | 2024-05-24 18:18 | XMS_ITS | Encounter Summary ---
Author Organization [facility] Address [address] [place] [address] Care Team Providers Care Grip Boss Name Role Phone Luis Enrique Cheek MD Primary Care Provider Corinne De La O MD Primary Care Provider Landen Josue PA-C Unavailable [phone] Reason for Visit * Reason Onset Date Comments refill request 10/14/2017 Encounter Details Date Type Department Care Team Description 10/14/2017 Refill Physiatry - [address] [address] Jamal Mir DO refill request Social History [...] insurance carrier is: [place] / Plan[place] / Product Type: MEDICARE [id number] Patient is not sure if Dr Mir [...] limb documented in this encounter Care Teams Grip Boss Relationship Specialty Start Date End Date Luis Enrique Cheek MD PCP - General Internal Medicine 09/19/15 05/20/19 Corinne Figueroa MD PCP - General Internal Medicine 05/21/19 Landen Collado PA-C [address] [place] [address] [place] [address] Specialist Neurosurgery 04/03/21 documented as of this encounter
--- OUTSIDE RECORDS SUMMARY | 2024-05-24 18:18 | XMS_ITS | Encounter Summary ---
Author Organization [facility] Address [address] [place] [address] Care Team Providers Care Heel Lining Paster Name Role Phone Corinne Figueroa MD Primary Care Provider Landen Josue PA-C Unavailable Encounter Details Date Type Department Care Team Description 05/15/2021 SCAN [facility] Medical [facility] Neurosurgery [place] [address] [address] Ana Dillon PA-C [address] [address] Social History Tobacco Use Types Packs/Day Years [...] on filedocumented in this encounter Care Teams Heel Lining Paster Relationship Specialty Start Date End Date Corinne Figueroa MD PCP - General Internal Medicine 05/21/19 Landen Collado PA-C [address] [address] Specialist Neurosurgery 04/03/21 documented as of this encounter
--- OUTSIDE RECORDS SUMMARY | 2024-05-24 18:18 | XMS_ITS | Encounter Summary ---
Author Organization [facility] Address [address] [place] [address] Care Team Providers Care Needle Punch Machine Operator Helper Name Role Phone Luis Enrique Cheek MD Primary Care Provider Corinne De La O MD Primary Care Provider Landen Josue PA-C Unavailable [phone] Reason for Visit * Reason Comments E-prescribe Rx Request Encounter Details Date Type Department Care Team Description 12/18/2017 Refill Adult Medicine [address] [address] Luis Enrique Cheek MD E-prescribe Rx Request [...] an upcoming appointment? [facility] for [facility] [...] insurance carrier is: [place] / Plan: MEDICARE-[employer] / Product Type: MEDICARE [id number] documented in this encounter Plan of Treatment Not on file documented as of this encounter Visit Diagnoses Not on filedocumented in this encounter Care Teams Needle Punch Machine Operator Helper Relationship Specialty Start Date End Date Luis Enrique Cheek MD PCP - General Internal Medicine 09/19/15 05/20/19 Corinne Figueroa MD PCP - General Internal Medicine 05/21/19 Landen Collado PA-C [address] [place] [address] Specialist Neurosurgery 04/03/21 documented as of this encounter
--- OUTSIDE RECORDS SUMMARY | 2024-05-24 18:18 | XMS_ITS | Encounter Summary ---
Author Organization [facility] Address [address] [place] [address] Care Team Providers Care Window Installer Name Role Phone Luis Enrique Cheek MD Primary Care Provider Luis Enrique Granados MD Primary Care Provider Luis Enrique Granados MD Primary Care Provider Corinne De La O MD Primary Care Provider Landen Josue PA-C Unavailable [phone] Encounter Details Date Type Department Care Team Description 05/19/2015 Release of Information Medical Records [address] [place] [id number] Abstract, Provider Social History Tobacco Use Types [...] on filedocumented in this encounter Care Teams Window Installer Relationship Specialty Start Date End Date Luis Enrique Cheek MD PCP - General Internal Medicine 06/09/14 09/09/15 Luis Enrique Cheek MD PCP - General Internal Medicine 09/10/15 09/18/15 Luis Enrique Cheek MD PCP - General Internal Medicine 09/19/15 05/20/19 Corinne Figueroa MD PCP - General Internal Medicine 05/21/19 Landen Collado PA-C [address] [facility] [address] [place] [address] Specialist Neurosurgery 04/03/21 documented as of this encounter
--- OUTSIDE RECORDS SUMMARY | 2024-05-24 18:18 | XMS_ITS | Encounter Summary ---
Author Organization [facility] Address [address] [place] [address] Care Team Providers Care Internal Medicine Nurse Name Role Phone Corinne Figueroa MD Primary Care Provider Landen Josue PA-C Unavailable [phone] Encounter Details Date Type Department Care Team Description 05/04/2021 Orders Only [facility] Medical [facility] Neurosurgery [place] [address] [address] Landen Collado PA-C [address] [address] Social History Tobacco Use Types Packs/Day Years [...] on filedocumented in this encounter Care Teams Internal Medicine Nurse Relationship Specialty Start Date End Date Corinne Figueroa MD PCP - General Internal Medicine 05/21/19 Landen Collado PA-C [address] [address] Specialist Neurosurgery 04/03/21 documented as of this encounter
--- OUTSIDE RECORDS SUMMARY | 2024-05-24 18:18 | XMS_ITS | Encounter Summary ---
Author Organization [facility] Address [address] [place] [address] Care Team Providers Care Resistor Coater Name Role Phone Luis Enrique Cheek MD Primary Care Provider Corinne De La O MD Primary Care Provider Landen Josue PA-C Unavailable [phone] Reason for Visit * Reason Comments E-prescribe Rx Request Encounter Details Date Type Department Care Team Description 11/13/2017 Refill Adult Medicine [address] [address] Luis Enrique Cheek MD E-prescribe Rx Request [...] appointment? No patient states no longer with [employer] (THE MEDICATION REQUESTED IS ON THE MED LIST ABOVE) All of the medications requested were on the CURRENT MEDS list No longer Patient of [facility] [employer] Did you check the Pharmacy information above?: YES Patient wants: 30 -day supply Is this a mail order prescription request ? NO If the refill is from a FAXED refill request what is the RX # listed on the fax? N/A Patients current insurance carrier is: [place] / Plan: MEDICARE-[employer] / Product Type: MEDICARE [id number] documented in this encounter Plan of Treatment Not on file documented as of this encounter Visit Diagnoses Not on filedocumented in this encounter Care Teams Resistor Coater Relationship Specialty Start Date End Date Luis Enrique Cheek MD PCP - General Internal Medicine 09/19/15 05/20/19 Corinne Figueroa MD PCP - General Internal Medicine 05/21/19 Landen Collado PA-C [address] [place] [address] [place] [address] Specialist Neurosurgery 04/03/21 documented as of this encounter
--- OUTSIDE RECORDS SUMMARY | 2024-05-24 18:18 | XMS_ITS | Encounter Summary ---
Author Organization [facility] Address [address] [place] [address] Care Team Providers Care Patrol Man Name Role Phone Luis Enrique Cheek MD Primary Care Provider Corinne De La O MD Primary Care Provider Landen Josue PA-C Unavailable [phone] Encounter Details Date Type Department Care Team Description 09/01/2017 [facility] Medical Records [address] [place] [address] Abstract, Provider Social History Tobacco Use Types [...] on filedocumented in this encounter Care Teams Patrol Man Relationship Specialty Start Date End Date Luis Enrique Cheek MD PCP - General Internal Medicine 09/19/15 05/20/19 Corinne Figueroa MD PCP - General Internal Medicine 05/21/19 Landen Collado PA-C 175 [facility] [address] [place] [address] Specialist Neurosurgery 04/03/21 documented as of this encounter
--- OUTSIDE RECORDS SUMMARY | 2024-05-24 18:18 | XMS_ITS | Encounter Summary ---
Author Organization [facility] Address [address] [place] [address] Care Team Providers Care Manager Knowledge Name Role Phone Luis Enrique Cheek MD Primary Care Provider Corinne De La O MD Primary Care Provider Landen Josue PA-C Unavailable [phone] Reason for Visit * Reason Onset Date Comments refill request 08/19/2018 Encounter Details Date Type Department Care Team Description 08/19/2018 Refill Physiatry - [address] [address] Jamal Mir DO refill request Social History [...] N/A Patients current insurance carrier is: Payor: [employer] [facility] [employer] / Plan: [facility] / Product Type: HMO [id number] documented in this encounter Plan of Treatment Not on file documented as of this encounter Visit Diagnoses Diagnosis Spinal stenosis of lumbar region with neurogenic claudication Spinal stenosis, lumbar region, with neurogenic claudication Lumbar radiculitis Thoracic or lumbosacral neuritis or radiculitis, unspecified Osteoarthritis of spine with radiculopathy, lumbar region Muscle cramps Cramp of limb documented in this encounter Care Teams Manager Knowledge Relationship Specialty Start Date End Date Luis Enrique Cheek MD PCP - General Internal Medicine 09/19/15 05/20/19 Corinne Figueroa MD PCP - General Internal Medicine 05/21/19 Landen Collado PA-C [address] [place] [address] Specialist Neurosurgery 04/03/21 documented as of this encounter
--- OUTSIDE RECORDS SUMMARY | 2024-05-24 18:18 | XMS_ITS | Encounter Summary ---
Author Organization [facility] Address [address] [place] [address] Care Team Providers Care Immunology Teacher Name Role Phone Luis Enrique Cheek MD Primary Care Provider Corinne De La O MD Primary Care Provider Landen Josue PA-C Unavailable [phone] Reason for Visit * Reason Comments E-prescribe Rx Request Encounter Details Date Type Department Care Team Description 06/01/2018 Refill Physiatry - [place] [address] [place] [address] Jamal Mir DO E-prescribe Rx Request Social [...] limb documented in this encounter Care Teams Immunology Teacher Relationship Specialty Start Date End Date Luis Enrique Cheek MD PCP - General Internal Medicine 09/19/15 05/20/19 Corinne Figueroa MD PCP - General Internal Medicine 05/21/19 Landen Collado PA-C [address] [place] [address] Specialist Neurosurgery 04/03/21 documented as of this encounter
--- OUTSIDE RECORDS SUMMARY | 2024-05-24 18:18 | XMS_ITS | Encounter Summary ---
Author Organization [facility] Address [address] [place] [address] Care Team Providers Care Recreation Center Director Name Role Phone Luis Enrique Cheek MD Primary Care Provider Corinne De La O MD Primary Care Provider Landen Josue PA-C Unavailable [phone] Encounter Details Date Type Department Care Team Description 05/12/2018 [facility] Medical Records [address] [place] [address] Jamal Mir DO Social History Tobacco Use [...] on filedocumented in this encounter Care Teams Recreation Center Director Relationship Specialty Start Date End Date Luis Enrique Cheek MD PCP - General Internal Medicine 09/19/15 05/20/19 Corinne Figueroa MD PCP - General Internal Medicine 05/21/19 Landen Collado PA-C 175 [facility] [address] [place] [address] Specialist Neurosurgery 04/03/21 documented as of this encounter
--- OUTSIDE RECORDS SUMMARY | 2024-05-24 18:18 | XMS_ITS | Encounter Summary ---
Author Organization [facility] Address [address] [place] [address] Care Team Providers Care Category Consultant Name Role Phone Luis Enrique Cheek MD Primary Care Provider Luis Enrique Granados MD Primary Care Provider Luis Enrique Granados MD Primary Care Provider Corinne De La O MD Primary Care Provider Landen Josue PA-C Unavailable [phone] Encounter Details Date Type Department Care Team Description 05/22/2015 Test Architect Report Medical Records [address] [place] [id number] Koko Avery Social History Tobacco Use Types [...] on filedocumented in this encounter Care Teams Category Consultant Relationship Specialty Start Date End Date Luis Enrique Cheek MD PCP - General Internal Medicine 06/09/14 09/09/15 Luis Enrique Cheek MD PCP - General Internal Medicine 09/10/15 09/18/15 Luis Enrique Cheek MD PCP - General Internal Medicine 09/19/15 05/20/19 Corinne Figueroa MD PCP - General Internal Medicine 05/21/19 Landen Collado PA-C [address] [facility] [address] [place] [address] Specialist Neurosurgery 04/03/21 documented as of this encounter
--- OUTSIDE RECORDS SUMMARY | 2024-05-24 18:18 | XMS_ITS | Encounter Summary ---
Author Organization [facility] Address [address] [place] [address] Care Team Providers Care Nuclear Weapons Specialist Name Role Phone Luis Enrique Cheek MD Primary Care Provider Corinne De La O MD Primary Care Provider Landen Josue PA-C Unavailable [phone] Encounter Details Date Type Department Care Team Description 03/21/2017 Release of Information Medical Records [address] [place] [id number] Abstract, Provider Social History Tobacco Use Types [...] on filedocumented in this encounter Care Teams Nuclear Weapons Specialist Relationship Specialty Start Date End Date Luis Enrique Cheek MD PCP - General Internal Medicine 09/19/15 05/20/19 Corinne Figueroa MD PCP - General Internal Medicine 05/21/19 Landen Collado PA-C [address] [facility] [address] [place] [address] Specialist Neurosurgery 04/03/21 documented as of this encounter
--- OUTSIDE RECORDS SUMMARY | 2024-05-24 18:19 | XMS_ITS | Encounter Summary ---
Author Organization [facility] Address [address] [place] [address] Care Team Providers Care Floorworker Lasting Name Role Phone Luis Enrique Cheek MD Primary Care Provider Luis Enrique Granados MD Primary Care Provider Luis Enrique Granados MD Primary Care Provider Corinne De La O MD Primary Care Provider Landen Josue PA-C Unavailable [phone] Encounter Details Date Type Department Care Team Description 08/30/2015 Transfer Records Medical Records [address] [place] [id number] Abstract, Provider Social History Tobacco Use Types [...] 2015 9:37 AM Transfer records received from [facility] sent to Dr.Barbara Alvarez/[facility] dept forabstracting. documented in this encounter Plan of Treatment Not on file documented as of this encounter Visit Diagnoses Not on filedocumented in this encounter Care Teams Floorworker Lasting Relationship Specialty Start Date End Date Luis Enrique Cheek MD PCP - General Internal Medicine 06/09/14 09/09/15 Luis Enrique Cheek MD PCP - General Internal Medicine 09/10/15 09/18/15 Luis Enrique Cheek MD PCP - General Internal Medicine 09/19/15 05/20/19 Corinne Figueroa MD PCP - General Internal Medicine 05/21/19 Landen Collado PA-C [address] [place] [address] Specialist Neurosurgery 04/03/21 documented as of this encounter
--- OUTSIDE RECORDS SUMMARY | 2024-05-24 18:19 | XMS_ITS | Encounter Summary ---
Author Organization [facility] Address [address] [place] [address] Care Team Providers Care Transportation Logistics Internship Name Role Phone Luis Enrique Cheek MD Primary Care Provider Corinne De La O MD Primary Care Provider Landen Josue PA-C Unavailable [phone] Encounter Details Date Type Department Care Team Description 01/03/2016 Controlled Substance Plan Medical Records [address] [place] [address] Abstract, Provider Social History Tobacco Use Types [...] filedocumented in this encounter Care Teams Transportation Logistics Internship Relationship Specialty Start Date End Date Luis Enrique Cheek MD PCP - General Internal Medicine 09/19/15 05/20/19 Corinne Figueroa MD PCP - General Internal Medicine 05/21/19 Landen Collado PA-C [address] [facility] [address] [place] [address] Specialist Neurosurgery 04/03/21 documented as of this encounter
--- OUTSIDE RECORDS SUMMARY | 2024-05-24 18:19 | XMS_ITS | Encounter Summary ---
Author Organization [facility] Address [address] [place] [address] Care Team Providers Care Mover Helper Name Role Phone Luis Enrique Cheek MD Primary Care Provider Corinne De La O MD Primary Care Provider Landen Josue PA-C Unavailable [phone] Encounter Details Date Type Department Care Team Description 12/06/2015 Release of Information Medical Records [address] [place] [address] Abstract, Provider Social History Tobacco Use Types [...] on filedocumented in this encounter Care Teams Mover Helper Relationship Specialty Start Date End Date Luis Enrique Cheek MD PCP - General Internal Medicine 09/19/15 05/20/19 Corinne Figueroa MD PCP - General Internal Medicine 05/21/19 Landen Collado PA-C [address] [facility] [address] [place] [address] Specialist Neurosurgery 04/03/21 documented as of this encounter
--- OUTSIDE RECORDS SUMMARY | 2024-05-24 18:19 | XMS_ITS | Encounter Summary ---
Author Organization [facility] Address [address] [place] [address] Care Team Providers Care Vp Project Name Role Phone Corinne Figueroa MD Primary Care Provider Landen Josue PA-C Unavailable [phone] Encounter Details Date Type Department Care Team Description 04/19/2020 Material Handler 2Nd Shift Report Medical Records [address] [place] [id number] [place] [address] Social History Tobacco Use Types Packs/Day Years [...] filedocumented in this encounter Care Teams Vp Project Relationship Specialty Start Date End Date Corinne Figueroa MD PCP - General Internal Medicine 05/21/19 Landen Collado PA-C [address] [facility] [address] [place] [address] Specialist Neurosurgery 04/03/21 documented as of this encounter
--- OUTSIDE RECORDS SUMMARY | 2024-05-24 18:19 | XMS_ITS | Encounter Summary ---
Author Organization [facility] Address [address] [place] [address] Care Team Providers Care Storeroom Attendant Name Role Phone Luis Enrique Cheek MD Primary Care Provider Corinne De La O MD Primary Care Provider Landen Josue PA-C Unavailable [phone] Encounter Details Date Type Department Care Team Description 11/07/2015 Controlled Substance Plan Medical Records [address] [place] [address] Abstract, Provider Social History Tobacco Use Types [...] on filedocumented in this encounter Care Teams Storeroom Attendant Relationship Specialty Start Date End Date Luis Enrique Cheek MD PCP - General Internal Medicine 09/19/15 05/20/19 Corinne Figueroa MD PCP - General Internal Medicine 05/21/19 Landen Collado PA-C [address] [facility] [address] [place] [address] Specialist Neurosurgery 04/03/21 documented as of this encounter
--- OUTSIDE RECORDS SUMMARY | 2024-05-24 18:19 | XMS_ITS | Patient Health Record ---
Author Organization [facility] Address [address] [facility] [address] [place] [address] Care Team Providers Care Mortgage Counselor Name Role Phone Corinne Figueroa Primary Care [...] Once a day Not-Taking Cholecalciferol Not- Taking Nrhsogvfsm-VLIJ-Sgxnkyea 50-325-40 MG 1 tablet as needed Orally every 4 hrs Active Aspirin 81 MG 1 tablet Orally Once a day Not-Taking Lidocaine 5 % 1 patch remove after 12 hours Externally Active Calcium Citrate + D3 Not-Taking Multivitamin Active Qvar Not-Taking SEROquel XR 200 MG 1 tablet in the evening Orally Once a day 100 MG Active Nasal [place] Active Cyanocobalamin 1000 MCG 1 tablet Orally [...] Problem Status W/U Status Risk Notes Problem [id number] Pain due to bone fixation device, subsequent [...]
--- OUTSIDE RECORDS SUMMARY | 2024-05-24 18:19 | XMS_ITS | Encounter Summary ---
Author Organization [facility] Address [address] [place] [address] Care Team Providers Care Wool Washer Feeder Name Role Phone Luis Enrique Cheek MD Primary Care Provider Corinne De La O MD Primary Care Provider Landen Josue PA-C Unavailable [phone] Encounter Details Date Type Department Care Team Description 02/01/2016 Sld Teacher Report Medical Records [address] [place] [address] Tabatha Henderson Social History Tobacco Use Types [...] on filedocumented in this encounter Care Teams Wool Washer Feeder Relationship Specialty Start Date End Date Luis Enrique Cheek MD PCP - General Internal Medicine 09/19/15 05/20/19 Corinne Figueroa MD PCP - General Internal Medicine 05/21/19 Landen Collado PA-C [address] [facility] [address] [place] [address] Specialist Neurosurgery 04/03/21 documented as of this encounter
--- OUTSIDE RECORDS SUMMARY | 2024-05-24 18:19 | XMS_ITS | Encounter Summary ---
Author Organization [facility] Address [address] [place] [address] Care Team Providers Care Customer Relations Advisor Name Role Phone Luis Enrique Cheek MD Primary Care Provider Corinne De La O MD Primary Care Provider Landen Josue PA-C Unavailable [phone] Reason for Visit * Reason Comments E-prescribe Rx Request Encounter Details Date Type Department Care Team Description 01/24/2017 Refill Adult Medicine [address] [address] Luis Enrique Cheek MD E-prescribe Rx Request [...] NO Patients current insurance carrier is: Payor: [employer] [employer] / Plan: [employer] [employer] HMO $0 [id number] / Product Type: HMO [id number] documented in this encounter Plan of Treatment Not on file documented as of this encounter Visit Diagnoses Not on filedocumented in this encounter Care Teams Customer Relations Advisor Relationship Specialty Start Date End Date Luis Enrique Cheek MD PCP - General Internal Medicine 09/19/15 05/20/19 Corinne Figueroa MD PCP - General Internal Medicine 05/21/19 Landen Collado PA-C [address] [place] [address] Specialist Neurosurgery 04/03/21 documented as of this encounter
--- OUTSIDE RECORDS SUMMARY | 2024-05-24 18:19 | XMS_ITS | Encounter Summary ---
Author Organization [facility] Address [address] [place] [address] Care Team Providers Care Content Administrator Name Role Phone Luis Enrique Cheek MD Primary Care Provider Luis Enrique Granados MD Primary Care Provider Luis Enrique Granados MD Primary Care Provider Corinne De La O MD Primary Care Provider Landen Josue PA-C Unavailable [phone] Encounter Details Date Type Department Care Team Description 06/29/2014 Release of Information Medical Records [address] [place] [id number] Abstract, Provider Social History Tobacco Use Types [...] on filedocumented in this encounter Care Teams Content Administrator Relationship Specialty Start Date End Date Luis Enrique Cheek MD PCP - General Internal Medicine 06/09/14 09/09/15 Luis Enrique Cheek MD PCP - General Internal Medicine 09/10/15 09/18/15 Luis Enrique Cheek MD PCP - General Internal Medicine 09/19/15 05/20/19 Corinne Figueroa MD PCP - General Internal Medicine 05/21/19 Landen Collado PA-C [address] [facility] [address] [place] [address] Specialist Neurosurgery 04/03/21 documented as of this encounter
--- OUTSIDE RECORDS SUMMARY | 2024-05-24 18:19 | XMS_ITS | Encounter Summary ---
Author Organization [facility] Address [address] [place] [address] Care Team Providers Care Computer Lab Assistant Name Role Phone Corinne Figueroa MD Primary Care Provider Landen Josue PA-C Unavailable [phone] Encounter Details Date Type Department Care Team Description 10/29/2019 Telephone Podiatry - [address] [address] Corinne Figueroa MD Social History Tobacco Use [...] on filedocumented in this encounter Care Teams Computer Lab Assistant Relationship Specialty Start Date End Date Corinne Figueroa MD PCP - General Internal Medicine 05/21/19 Landen Collado PA-C [address] [facility] [address] [place] [address] Specialist Neurosurgery 04/03/21 documented as of this encounter
== END 2024-05-24 16:00 | disposition home or self-care (01) ==
LOC: HO.PMC 15:33
PROVIDERS: PCP Internal Medicine; Visit Provider Anesthesiology
DX: M70.61 Trochanteric bursitis, right hip (principal); M47.27 Other spondylosis with radiculopathy, lumbosacral region; M25.551 Pain in right hip; M96.1 Postlaminectomy syndrome, not elsewhere classified; G89.4 Chronic pain syndrome; M54.51 Vertebrogenic low back pain; M47.816 Spondylosis without myelopathy or radiculopathy, lumbar region; M16.11 Unilateral primary osteoarthritis, right hip
CPT/HCPCS: 99214

== ENCOUNTER → 2024-05-24 15:32 | Outpatient (BNVA) | payer OTHER, SELFPAY | PROVIDERS: PCP Internal Medicine; Visit Provider Anesthesiology | DX: M70.61 Trochanteric bursitis, right hip (principal); M16.11 Unilateral primary osteoarthritis, right hip; M47.27 Other spondylosis with radiculopathy, lumbosacral region; M96.1 Postlaminectomy syndrome, not elsewhere classified; G89.4 Chronic pain syndrome; M54.51 Vertebrogenic low back pain; M47.816 Spondylosis without myelopathy or radiculopathy, lumbar region | CPT/HCPCS: 99212 ==

== ENCOUNTER 2024-06-14 07:52 | Outpatient (REF) | payer OTHER, SELFPAY ==
--- OUTSIDE RECORDS SUMMARY | 2024-06-14 09:03 | XMS_ITS | Encounter Summary ---
Author Organization [facility] Address [address] [place] [address] Care Team Providers Care Pipeline Dispatch Operator Name Role Phone Luis Enrique Cheek MD Primary Care Provider Cornine De La O MD Primary Care Provider Landen Josue PA-C Unavailable [phone] Encounter Details Date Type Department Care Team Description 09/20/2015 Transfer Records Medical Records [address] [place] [address] Abstract, Provider Social History Tobacco Use Types [...] on filedocumented in this encounter Care Teams Pipeline Dispatch Operator Relationship Specialty Start Date End Date Luis Enrique Cheek MD PCP - General Internal Medicine 09/19/15 05/20/19 Corinne Figueroa MD PCP - General Internal Medicine 05/21/19 Landen Collado PA-C 175 [facility] [address] [place] [address] Specialist Neurosurgery 04/03/21 documented as of this encounter
--- OUTSIDE RECORDS SUMMARY | 2024-06-14 09:03 | XMS_ITS | Encounter Summary ---
Author Organization [facility] Address [address] [place] [address] Care Team Providers Care Range Mounter Name Role Phone Corinne Figueroa MD Primary Care Provider Landen Josue PA-C Unavailable Encounter Details Date Type Department Care Team Description 05/04/2021 SCAN [facility] Medical [facility] Neurosurgery [place] [address] [phone] Slim Cervantes MD, PHD Social History Tobacco [...] on filedocumented in this encounter Care Teams Range Mounter Relationship Specialty Start Date End Date Corinne Figueroa MD PCP - General Internal Medicine 05/21/19 Landen Collado PA-C [address] [address] Specialist Neurosurgery 04/03/21 documented as of this encounter
--- OUTSIDE RECORDS SUMMARY | 2024-06-14 09:03 | XMS_ITS | Encounter Summary ---
Author Organization [facility] Address [address] [place] [address] Care Team Providers Care Ethnographer Name Role Phone Luis Enrique Cheek MD Primary Care Provider Corinne De La O MD Primary Care Provider Landen Joseu PA-C Unavailable [phone] Reason for Visit * Reason Comments E-prescribe Rx Request Encounter Details Date Type Department Care Team Description 08/11/2016 Refill Adult Medicine [address] [address] Luis Enrique Cheek MD E-prescribe Rx Request [...] NO Patients current insurance carrier is: Payor: [facility] MEDICAID / Plan: [facility] MEDICAID HMO $0 [place] / Product Type: HMO [id number] documented in this encounter Plan of Treatment Not on file documented as of this encounter Visit Diagnoses Not on filedocumented in this encounter Care Teams Ethnographer Relationship Specialty Start Date End Date Luis Enrique Cheek MD PCP - General Internal Medicine 09/19/15 05/20/19 Corinne Figueroa MD PCP - General Internal Medicine 05/21/19 Landen Collado PA-C [address] [place] [address] Specialist Neurosurgery 04/03/21 documented as of this encounter
--- OUTSIDE RECORDS SUMMARY | 2024-06-14 09:03 | XMS_ITS | Encounter Summary ---
Author Organization [facility] Address [address] [place] [address] Care Team Providers Care Fertilizer Supervisor Name Role Phone Luis Enrique Cheek MD Primary Care Provider Corinne De La O MD Primary Care Provider Landen Josue PA-C Unavailable [phone] Encounter Details Date Type Department Care Team Description 09/01/2017 [facility] Medical Records [address] [place] [address] Abstract, Provider Social History Tobacco Use Types [...] on filedocumented in this encounter Care Teams Fertilizer Supervisor Relationship Specialty Start Date End Date Luis Enrique Cheek MD PCP - General Internal Medicine 09/19/15 05/20/19 Corinne Figueroa MD PCP - General Internal Medicine 05/21/19 Landen Collado PA-C 175 [facility] [address] [place] [address] Specialist Neurosurgery 04/03/21 documented as of this encounter
--- OUTSIDE RECORDS SUMMARY | 2024-06-14 09:03 | XMS_ITS | Encounter Summary ---
Author Organization [facility] Address [address] [place] [address] Care Team Providers Care Senior Compliance Officer Name Role Phone Luis Enrique Cheek MD Primary Care Provider Corinne De La O MD Primary Care Provider Landen Josue PA-C Unavailable [phone] Encounter Details Date Type Department Care Team Description 12/05/2015 [facility] Medical Records [address] [place] [address] Abstract, Provider Social History Tobacco Use Types [...] on filedocumented in this encounter Care Teams Senior Compliance Officer Relationship Specialty Start Date End Date Luis Enrique Cheek MD PCP - General Internal Medicine 09/19/15 05/20/19 Corinne Figueroa MD PCP - General Internal Medicine 05/21/19 Landen Collado PA-C 175 [facility] [address] [place] [address] Specialist Neurosurgery 04/03/21 documented as of this encounter
--- OUTSIDE RECORDS SUMMARY | 2024-06-14 09:03 | XMS_ITS | Encounter Summary ---
Author Organization [facility] Address [address] [place] [address] Care Team Providers Care Software Development Manager Name Role Phone Corinne Figueroa MD Primary Care Provider Landen Josue PA-C Unavailable [phone] Reason for Visit * Reason Comments E-prescribe Rx Request Encounter Details Date Type Department Care Team Description 11/18/2019 Refill Physiatry - [place] [address] [place] [address] Jamal Mir DO E-prescribe Rx Request Social [...] limb documented in this encounter Care Teams Software Development Manager Relationship Specialty Start Date End Date Corinne Figueroa MD PCP - General Internal Medicine 05/21/19 Landen Collado PA-C [address] [place] [address] Specialist Neurosurgery 04/03/21 documented as of this encounter
--- OUTSIDE RECORDS SUMMARY | 2024-06-14 09:03 | XMS_ITS | Encounter Summary ---
Author Organization [facility] Address [address] [place] [address] Care Team Providers Care Remote Sensing Surveyor Name Role Phone Luis Enrique Cheek MD Primary Care Provider Corinne De La O MD Primary Care Provider Landen Josue PA-C Unavailable [phone] Encounter Details Date Type Department Care Team Description 05/12/2018 [facility] Medical Records [address] [place] [address] Jamal Mir DO Social History Tobacco Use [...] on filedocumented in this encounter Care Teams Remote Sensing Surveyor Relationship Specialty Start Date End Date Luis Enrique Cheek MD PCP - General Internal Medicine 09/19/15 05/20/19 Corinne Figueroa MD PCP - General Internal Medicine 05/21/19 Landen Collado PA-C 175 [facility] [address] [place] [address] Specialist Neurosurgery 04/03/21 documented as of this encounter
--- OUTSIDE RECORDS SUMMARY | 2024-06-14 09:03 | XMS_ITS | Encounter Summary ---
Author Organization [facility] Address [address] [place] [address] Care Team Providers Care Electronic Equipment Maint Tech Name Role Phone Luis Enrique Cheek MD Primary Care Provider Corinne De La O MD Primary Care Provider Landen Josue PA-C Unavailable [phone] Reason for Visit * Reason Comments E-prescribe Rx Request Encounter Details Date Type Department Care Team Description 02/25/2017 Refill Adult Medicine [address] [address] Luis Enrique Cheek MD E-prescribe Rx Request [...] NO Patients current insurance carrier is: Payor: [facility] MEDICAID / Plan: [facility] MEDICAID HMO $0 [place] / Product Type: HMO [id number] documented in this encounter Plan of Treatment Not on file documented as of this encounter Visit Diagnoses Not on filedocumented in this encounter Care Teams Electronic Equipment Maint Tech Relationship Specialty Start Date End Date Luis Enrique Cheek MD PCP - General Internal Medicine 09/19/15 05/20/19 Corinne Figueroa MD PCP - General Internal Medicine 05/21/19 Landen Collado PA-C [address] [place] [address] Specialist Neurosurgery 04/03/21 documented as of this encounter
--- OUTSIDE RECORDS SUMMARY | 2024-06-14 09:03 | XMS_ITS | Encounter Summary ---
Author Organization [facility] Address [address] [place] [address] Care Team Providers Care Bariatric Physician Name Role Phone Luis Enrique Cheek MD Primary Care Provider Corinne De La O MD Primary Care Provider Landen Josue PA-C Unavailable Encounter Details Date Type Department Care Team Description 03/15/2016 [facility] Medical Records [address] [place] [address] Torsten Samano MD Social History Tobacco Use [...] on filedocumented in this encounter Care Teams Bariatric Physician Relationship Specialty Start Date End Date Luis Enrique Cheek MD PCP - General Internal Medicine 09/19/15 05/20/19 Corinne Figueroa MD PCP - General Internal Medicine 05/21/19 Landen Collado PA-C 175 [facility] [address] [place] [address] Specialist Neurosurgery 04/03/21 documented as of this encounter
--- OUTSIDE RECORDS SUMMARY | 2024-06-14 09:03 | XMS_ITS | Encounter Summary ---
Author Organization [facility] Address [address] [place] [address] Care Team Providers Care Leno Sewer Name Role Phone Luis nErique Cheek MD Primary Care Provider Corinne De La O MD Primary Care Provider Landen Josue PA-C Unavailable [phone] Reason for Visit * Reason Comments E-prescribe Rx Request Encounter Details Date Type Department Care Team Description 06/01/2018 Refill Physiatry - [place] [address] [place] [address] Jamal Mir DO E-prescribe Rx Request Social [...] limb documented in this encounter Care Teams Leno Sewer Relationship Specialty Start Date End Date Luis Enrique Cheek MD PCP - General Internal Medicine 09/19/15 05/20/19 Corinne Figueroa MD PCP - General Internal Medicine 05/21/19 Landen Collado PA-C [address] [place] [address] Specialist Neurosurgery 04/03/21 documented as of this encounter
--- OUTSIDE RECORDS SUMMARY | 2024-06-14 09:03 | XMS_ITS | Encounter Summary ---
Author Organization [facility] Address [address] [place] [address] Care Team Providers Care Computing Machine Operator Name Role Phone Luis Enrique Cheek MD Primary Care Provider Corinne De La O MD Primary Care Provider Landen Josue PA-C Unavailable [phone] Encounter Details Date Type Department Care Team Description 12/08/2018 [facility] Medical Records [address] [place] [address] Jamal Mir DO Social History Tobacco Use [...] on filedocumented in this encounter Care Teams Computing Machine Operator Relationship Specialty Start Date End Date Luis Enrique Cheek MD PCP - General Internal Medicine 09/19/15 05/20/19 Corinne Figueroa MD PCP - General Internal Medicine 05/21/19 Landen Collado PA-C 175 [facility] [address] [place] [address] Specialist Neurosurgery 04/03/21 documented as of this encounter
--- OUTSIDE RECORDS SUMMARY | 2024-06-14 09:03 | XMS_ITS | Encounter Summary ---
Author Organization [facility] Address [address] [place] [address] Care Team Providers Care Compliance Paralegal Name Role Phone Corinne Figueroa MD Primary Care Provider Landen Josue PA-C Unavailable [phone] Encounter Details Date Type Department Care Team Description 04/04/2021 Release of Information Medical Records [address] [place] [address] Abstract, Provider Social History Tobacco Use Types [...] on filedocumented in this encounter Care Teams Compliance Paralegal Relationship Specialty Start Date End Date Corinne Figueroa MD PCP - General Internal Medicine 05/21/19 Landen Collado PA-C 175 [facility] [address] [place] [address] Specialist Neurosurgery 04/03/21 documented as of this encounter
--- OUTSIDE RECORDS SUMMARY | 2024-06-14 09:03 | XMS_ITS | Encounter Summary ---
Author Organization [facility] Address [address] [place] [address] Care Team Providers Care Hris Coordinator Name Role Phone Corinne Figueroa MD Primary Care Provider Landen Josue PA-C Unavailable [phone] Encounter Details Date Type Department Care Team Description 04/19/2020 Facility Maintenance Technician Report Medical Records [address] [place] [id number] [place] [address] Social History Tobacco Use Types Packs/Day Years [...] on filedocumented in this encounter Care Teams Hris Coordinator Relationship Specialty Start Date End Date Corinne Figueroa MD PCP - General Internal Medicine 05/21/19 Landen Collado PA-C 175 [facility] [address] [place] [address] Specialist Neurosurgery 04/03/21 documented as of this encounter
--- OUTSIDE RECORDS SUMMARY | 2024-06-14 09:03 | XMS_ITS | Encounter Summary ---
Author Organization [facility] Address [address] [place] [address] Care Team Providers Care Comic Book Writer Name Role Phone Luis Enrique Cheek MD Primary Care Provider Corinne De La O MD Primary Care Provider Landen Josue PA-C Unavailable [phone] Reason for Visit * Reason Onset Date Comments refill request 04/15/2016 Encounter Details Date Type Department Care Team Description 04/15/2016 Refill Adult Medicine [address] [address] Luis Enrique Cheek MD refill request Social [...] on filedocumented in this encounter Care Teams Comic Book Writer Relationship Specialty Start Date End Date Lusi Enrique Cheek MD PCP - General Internal Medicine 09/19/15 05/20/19 Corinne Figueroa MD PCP - General Internal Medicine 05/21/19 Landen Collado PA-C [address] [place] [address] Specialist Neurosurgery 04/03/21 documented as of this encounter
--- OUTSIDE RECORDS SUMMARY | 2024-06-14 09:03 | XMS_ITS | Encounter Summary ---
Author Organization [facility] Address [address] [place] [address] Care Team Providers Care Glue Reel Operator Name Role Phone Luis Enrique Cheek MD Primary Care Provider Corinne De La O MD Primary Care Provider Landen Josue PA-C Unavailable [phone] Encounter Details Date Type Department Care Team Description 03/21/2017 Release of Information Medical Records [address] [place] [address] Abstract, Provider Social History Tobacco Use Types [...] on filedocumented in this encounter Care Teams Glue Reel Operator Relationship Specialty Start Date End Date Luis Enrique Cheek MD PCP - General Internal Medicine 09/19/15 05/20/19 Corinne Figueroa MD PCP - General Internal Medicine 05/21/19 Landen Collado PA-C 175 [facility] [address] [place] [address] Specialist Neurosurgery 04/03/21 documented as of this encounter
--- OUTSIDE RECORDS SUMMARY | 2024-06-14 09:03 | XMS_ITS | Encounter Summary ---
Author Organization [facility] Address [address] [place] [address] Care Team Providers Care Net Programmer Name Role Phone Corinne Figueroa MD Primary Care Provider Landen Josue PA-C Unavailable [phone] Encounter Details Date Type Department Care Team Description 04/04/2021 SCAN [facility] Medical [facility] Neurosurgery [place] [address] [address] Slim Cervantes MD, PHD Social [...] on filedocumented in this encounter Care Teams Net Programmer Relationship Specialty Start Date End Date Corinne Figueroa MD PCP - General Internal Medicine 05/21/19 Landen Collado PA-C 175 [facility] [address] [place] [address] Specialist Neurosurgery 04/03/21 documented as of this encounter
--- OUTSIDE RECORDS SUMMARY | 2024-06-14 09:03 | XMS_ITS | Encounter Summary ---
Author Organization [facility] Address [address] [place] [address] Care Team Providers Care Psychiatric Clinical Nurse Specialist Name Role Phone Luis Enrique Cheek MD Primary Care Provider Corinne De La O MD Primary Care Provider Landen Josue PA-C Unavailable [phone] Reason for Visit * Reason Comments E-prescribe Rx Request Encounter Details Date Type Department Care Team Description 11/13/2017 Refill Adult Medicine [address] [address] Luis Enrique Cheek MD E-prescribe Rx Request [...] appointment? No patient states no longer with [facility] (THE MEDICATION REQUESTED IS ON THE MED LIST ABOVE) All of the medications requested were on the CURRENT MEDS list No longer Patient of [facility] [employer] Did you check the Pharmacy information above?: YES Patient wants: 30 -day supply Is this a mail order prescription request ? NO If the refill is from a FAXED refill request what is the RX # listed on the fax? N/A Patients current insurance carrier is: [place] / Plan: MEDICARE-[employer] / Product Type: MEDICARE [id number] documented in this encounter Plan of Treatment Not on file documented as of this encounter Visit Diagnoses Not on filedocumented in this encounter Care Teams Psychiatric Clinical Nurse Specialist Relationship Specialty Start Date End Date Luis Enrique Cheek MD PCP - General Internal Medicine 09/19/15 05/20/19 Corinne Figueroa MD PCP - General Internal Medicine 05/21/19 Landen Collado PA-C [address] [place] [address] [place] [address] Specialist Neurosurgery 04/03/21 documented as of this encounter
--- OUTSIDE RECORDS SUMMARY | 2024-06-14 09:03 | XMS_ITS | Encounter Summary ---
Author Organization [facility] Address [address] [place] [address] Care Team Providers Care Qa Automation Developer Name Role Phone Luis Enrique Cheek MD Primary Care Provider Corinne De La O MD Primary Care Provider Landen Josue PA-C Unavailable [phone] Reason for Visit * Reason Comments E-prescribe Rx Request Encounter Details Date Type Department Care Team Description 11/21/2017 Refill Physiatry - [place] [address] [place] [address] Christine Boyer MD [address] [place] [address] [place] [address] E-prescribe Rx Request Social History Tobacco Use [...] region documented in this encounter Care Teams Qa Automation Developer Relationship Specialty Start Date End Date Luis Enrique Cheek MD PCP - General Internal Medicine 09/19/15 05/20/19 Corinne Figueroa MD PCP - General Internal Medicine 05/21/19 Landen Collado PA-C [address] [place] [address] Specialist Neurosurgery 04/03/21 documented as of this encounter
--- OUTSIDE RECORDS SUMMARY | 2024-06-14 09:03 | XMS_ITS | Encounter Summary ---
Author Organization [facility] Address [address] [place] [address] Care Team Providers Care Dental Aide Name Role Phone Luis Enrique Cheek MD Primary Care Provider Corinne De La O MD Primary Care Provider Landen Josue PA-C Unavailable [phone] Reason for Visit * Reason Comments E-prescribe Rx Request Encounter Details Date Type Department Care Team Description 03/28/2019 Refill Adult Medicine [address] [address] Una Bagley PA-C [address] [place] [address] E-prescribe Rx Request Social History Tobacco Use [...] N/A Patients current insurance carrier is: Payor: [facility] / Plan: [facility] / Product Type: HMO [id number] documented in this encounter Plan of Treatment Not on file documented as of this encounter Visit Diagnoses Not on filedocumented in this encounter Care Teams Dental Aide Relationship Specialty Start Date End Date Luis Enrique Cheek MD PCP - General Internal Medicine 09/19/15 05/20/19 Corinne Figueroa MD PCP - General Internal Medicine 05/21/19 Lanedn Collado PA-C [address] [place] [address] Specialist Neurosurgery 04/03/21 documented as of this encounter
--- OUTSIDE RECORDS SUMMARY | 2024-06-14 09:03 | XMS_ITS | Encounter Summary ---
Author Organization [facility] Address [address] [place] [address] Care Team Providers Care Clerk Secretary Name Role Phone Luis Enrique Cheek MD Primary Care Provider Corinne De La O MD Primary Care Provider Landen Josue PA-C Unavailable [phone] Reason for Visit * Reason Onset Date Comments refill request 10/14/2017 Encounter Details Date Type Department Care Team Description 10/14/2017 Refill Physiatry - [address] [address] Jamal Mir DO refill request Social History [...] insurance carrier is: [place] / Plan: [place] / Product Type: MEDICARE [id number] Patient is not sure if Dr Mir [...] limb documented in this encounter Care Teams Clerk Secretary Relationship Specialty Start Date End Date Luis Enrique Cheek MD PCP - General Internal Medicine 09/19/15 05/20/19 Corinne Figueroa MD PCP - General Internal Medicine 05/21/19 Landen Collado PA-C [address] [place] [address] [place] [address] Specialist Neurosurgery 04/03/21 documented as of this encounter
--- OUTSIDE RECORDS SUMMARY | 2024-06-14 09:03 | XMS_ITS | Encounter Summary ---
Author Organization [facility] Address [address] [place] [address] Care Team Providers Care Mixing Picker Tender Name Role Phone Luis Enrique Cheek MD Primary Care Provider Corinne De La O MD Primary Care Provider Landen Josue PA-C Unavailable Reason for Visit * Reason Onset Date Comments Provider Call Back 05/25/2018 Encounter Details Date Type Department Care Team Description 05/25/2018 Telephone Physiatry - [address] [address] Jamal Mir DO Provider Call Back Social [...] on filedocumented in this encounter Care Teams Mixing Picker Tender Relationship Specialty Start Date End Date Luis Enirque Cheek MD PCP - General Internal Medicine 09/19/15 05/20/19 Corinne Figueroa MD PCP - General Internal Medicine 05/21/19 Landen Collado PA-C [address] [place] [address] Specialist Neurosurgery 04/03/21 documented as of this encounter
--- OUTSIDE RECORDS SUMMARY | 2024-06-14 09:03 | XMS_ITS | Encounter Summary ---
Author Organization [facility] Address [address] [place] [address] Care Team Providers Care Software Quality Manager Name Role Phone Corinne Figueroa MD Primary Care Provider Landen Josue PA-C Unavailable [phone] Encounter Details Date Type Department Care Team Description 03/22/2020 Office Bookkeeper Report Medical Records [address] [place] [address] Abstract, Provider Social History Tobacco Use Types [...] on filedocumented in this encounter Care Teams Software Quality Manager Relationship Specialty Start Date End Date Corinne Figueroa MD PCP - General Internal Medicine 05/21/19 Landen Collado PA-C 175 [facility] [address] [place] [address] Specialist Neurosurgery 04/03/21 documented as of this encounter
--- OUTSIDE RECORDS SUMMARY | 2024-06-14 09:03 | XMS_ITS | Encounter Summary ---
Author Organization [facility] Address [address] [place] [address] Care Team Providers Care Silk Trimmer Name Role Phone Luis Enrique Cheek MD Primary Care Provider Corinne De La O MD Primary Care Provider Landen Josue PA-C Unavailable [phone] Reason for Visit * Reason Onset Date Comments Testing 02/27/2017 Ct Scan Abdomen Encounter Details Date Type Department Care Team Description 02/27/2017 Telephone Adult Medicine B - [place] [address] [place] [address] Luis Enrique Cheek MD Testing (Ct Scan [...] Dr [place]ek, [place] [id number] [address] Scan of Abd. The Insurance has denied code [id number] but is willing to approve code [id number]. A new order is needed for code [id number] if you are in agreement with this request. Thanks, Jaida Cobb Auth Dept. documented in this encounter Plan of Treatment Not on file documented as of this encounter Visit Diagnoses Diagnosis Right upper quadrant abdominal pain- Primary Abdominal pain, right upper quadrant documented in this encounter Care Teams Silk Trimmer Relationship Specialty Start Date End Date Luis Enrique Cheek MD PCP - General Internal Medicine 09/19/15 05/20/19 Corinne Figueroa MD PCP - General Internal Medicine 05/21/19 Landen Collado PA-C [address] [place] [address] Specialist Neurosurgery 04/03/21 documented as of this encounter
--- OUTSIDE RECORDS SUMMARY | 2024-06-14 09:03 | XMS_ITS | Encounter Summary ---
Author Organization [facility] Address [address] [place] [address] Care Team Providers Care Dental Ceramist Helper Name Role Phone Luis Enrique Cheek MD Primary Care Provider Luis Enrique Granados MD Primary Care Provider Luis Enrique Granados MD Primary Care Provider Corinne De La O MD Primary Care Provider Landen Josue PA-C Unavailable [phone] Encounter Details Date Type Department Care Team Description 03/01/2015 [facility] Medical Records [address] [place] [id number] Raeann Mota DPM Social History Tobacco Use [...] filedocumented in this encounter Care Teams Dental Ceramist Helper Relationship Specialty Start Date End Date Luis Enrique Cheek MD PCP - General Internal Medicine 06/09/14 09/09/15 Luis Enrique Cheek MD PCP - General Internal Medicine 09/10/15 09/18/15 Luis Enrique Cheek MD PCP - General Internal Medicine 09/19/15 05/20/19 Corinne Figueroa MD PCP - General Internal Medicine 05/21/19 Landen Collado PA-C [address] [facility] [address] [place] [address] Specialist Neurosurgery 04/03/21 documented as of this encounter
--- OUTSIDE RECORDS SUMMARY | 2024-06-14 09:03 | XMS_ITS | Encounter Summary ---
Author Organization [facility] Address [address] [place] [address] Care Team Providers Care Photo Finisher Name Role Phone Luis Enrique Cheek MD Primary Care Provider Corinne De La O MD Primary Care Provider Landen Josue PA-C Unavailable [phone] Reason for Visit * Reason Comments E-prescribe Rx Request Encounter Details Date Type Department Care Team Description 03/08/2018 Refill Physiatry - [place] [address] [place] [address] Jamal Mir DO E-prescribe Rx Request Social [...] limb documented in this encounter Care Teams Photo Finisher Relationship Specialty Start Date End Date Luis Enrique Cheek MD PCP - General Internal Medicine 09/19/15 05/20/19 Corinne Figueroa MD PCP - General Internal Medicine 05/21/19 Landen Collado PA-C [address] [place] [address] Specialist Neurosurgery 04/03/21 documented as of this encounter
--- OUTSIDE RECORDS SUMMARY | 2024-06-14 09:03 | XMS_ITS | Encounter Summary ---
Author Organization [facility] Address [address] [place] [address] Care Team Providers Care National Opelint Analyst Name Role Phone Luis Enrique Cheek MD Primary Care Provider Corinne De La O MD Primary Care Provider Landen Josue PA-C Unavailable [phone] Encounter Details Date Type Department Care Team Description 09/21/2018 Refill Adult Medicine [address] [address] Luis Enrique Cheek MD Social History Tobacco [...] an upcoming appointment? No-[facility] for [facility] due [...] N/A Patients current insurance carrier is: [facility] / Plan: [facility] / Product Type: HMO [id number] documented in this encounter Plan of Treatment Not on file documented as of this encounter Visit Diagnoses Not on filedocumented in this encounter Care Teams National Opelint Analyst Relationship Specialty Start Date End Date Luis Enrique Cheek MD PCP - General Internal Medicine 09/19/15 05/20/19 Corinne Figueroa MD PCP - General Internal Medicine 05/21/19 Landen Collado PA-C [address] [place] [address] Specialist Neurosurgery 04/03/21 documented as of this encounter
--- OUTSIDE RECORDS SUMMARY | 2024-06-14 09:03 | XMS_ITS | Encounter Summary ---
Author Organization [facility] Address [address] [place] [address] Care Team Providers Care Document Review Specialist Name Role Phone Luis Enrique Cheek MD Primary Care Provider Corinne De La O MD Primary Care Provider Landen Josue PA-C Unavailable [phone] Encounter Details Date Type Department Care Team Description 11/07/2015 Controlled Substance Plan Medical Records [address] [place] [address] Abstract, Provider Social History Tobacco Use Types [...] on filedocumented in this encounter Care Teams Document Review Specialist Relationship Specialty Start Date End Date Luis Enrique Cheek MD PCP - General Internal Medicine 09/19/15 05/20/19 Corinne Figueroa MD PCP - General Internal Medicine 05/21/19 Landen Collado PA-C [address] [facility] [address] [place] [address] Specialist Neurosurgery 04/03/21 documented as of this encounter
--- OUTSIDE RECORDS SUMMARY | 2024-06-14 09:03 | XMS_ITS | Encounter Summary ---
Author Organization [facility] Address [address] [place] [address] Care Team Providers Care Supervisor Die Casting Name Role Phone Luis Enrique Cheek MD Primary Care Provider Corinne De La O MD Primary Care Provider Landen Josue PA-C Unavailable [phone] Reason for Visit * Reason Onset Date Comments refill request 08/19/2018 Encounter Details Date Type Department Care Team Description 08/19/2018 Refill Physiatry - [address] [address] Jamal Mir DO refill request Social History [...] N/A Patients current insurance carrier is: Payor: [facility] [employer] MCR / Plan: [facility] / Product Type: HMO [id number] documented in this encounter Plan of Treatment Not on file documented as of this encounter Visit Diagnoses Diagnosis Spinal stenosis of lumbar region with neurogenic claudication Spinal stenosis, lumbar region, with neurogenic claudication Lumbar radiculitis Thoracic or lumbosacral neuritis or radiculitis, unspecified Osteoarthritis of spine with radiculopathy, lumbar region Muscle cramps Cramp of limb documented in this encounter Care Teams Supervisor Die Casting Relationship Specialty Start Date End Date Luis Enrique Cheek MD PCP - General Internal Medicine 09/19/15 05/20/19 Corinne Figueroa MD PCP - General Internal Medicine 05/21/19 Landen Collado PA-C [address] [place] [address] Specialist Neurosurgery 04/03/21 documented as of this encounter
--- OUTSIDE RECORDS SUMMARY | 2024-06-14 09:03 | XMS_ITS | Encounter Summary ---
Author Organization [facility] Address [address] [place] [address] Care Team Providers Care Power Electronics Research Engineer Name Role Phone Luis Enrique Cheek MD Primary Care Provider Corinne De La O MD Primary Care Provider Landen Josue PA-C Unavailable [phone] Encounter Details Date Type Department Care Team Description 05/08/2017 Engineering Officer Report Medical Records [address] [place] [address] iMka Villanueva MD Social History Tobacco Use Types [...] on filedocumented in this encounter Care Teams Power Electronics Research Engineer Relationship Specialty Start Date End Date Luis Enrique Cheek MD PCP - General Internal Medicine 09/19/15 05/20/19 Corinne Figueroa MD PCP - General Internal Medicine 05/21/19 Landen Collado PA-C [address] [facility] [address] [place] [address] Specialist Neurosurgery 04/03/21 documented as of this encounter
--- OUTSIDE RECORDS SUMMARY | 2024-06-14 09:03 | XMS_ITS | Clinical Summary ---
Author Organization [facility] Address [address] [place] [address] Care Team Providers Care Resident In Diagnostic Radiology Name Role Phone Corinne Figueroa MD Primary Care Provider Landen Josue PA-C Unavailable [phone] Allergies Active Allergy Reactions Severity Noted Date [...] CR 1 Tab daily. 0 11/24/2018 Active [id number] NE 50-325-40 MG OR TABS (FIORICET, ESGIC) [...] Comments Alcohol and Other Drug Abuse Daughter [place] Other Father, brother s also with CAD [...] 10/20/2015 CHOLESTEROL SCREENING 09/09/2020 09/10/2015 Covid-19 Vaccine ( - 2022-2 4 season) 2023 01/31/2021, 06/24/2020, 06/03/2020 INFLUENZA (Season Ended) 2024 021, 11/23/2019, 11/05/2017, Additional history exists DTAP/TDAP/TD (2 - Td or Tdap) 07/12/2025 07/13/2015 COLON CANCER SCREENING 10/11/2025 10/12/2015 HEPATITIS C SCREENING Completed 09/10/2015 PNEUMOCOCCAL VACCINE FOR HIG H RISK PATIENTS Completed 11/01/2016, 11/01/2016 (Exte rnal Completion of Vaccination per patient), 02/09/2008 Care Teams Resident In Diagnostic Radiology Relationship Specialty Start Date End Date Corinne Figueroa MD PCP - General Internal Medicine 05/21/19 Landen Collado PA-C [address] [place] [address] [address] [place] [address] Specialist Neurosurgery 04/03/21
--- OUTSIDE RECORDS SUMMARY | 2024-06-14 09:03 | XMS_ITS | Encounter Summary ---
Author Organization [facility] Address [address] [place] [address] Care Team Providers Care Needle Felt Making Machine Operator Name Role Phone Luis Enrique Cheek MD Primary Care Provider Corinne De La O MD Primary Care Provider Landen Josue PA-C Unavailable Reason for Visit * Reason Comments E-prescribe Rx Request Encounter Details Date Type Department Care Team Description 01/24/2017 Refill Adult Medicine [address] [address] Luis Enrique Cheek MD E-prescribe Rx Request [...] [facility] MEDICAID HMO $0 [place] / Product Type: HMO [id number] documented in this encounter Plan of Treatment Not on file documented as of this encounter Visit Diagnoses Not on filedocumented in this encounter Care Teams Needle Felt Making Machine Operator Relationship Specialty Start Date End Date Luis Enrique Cheek MD PCP - General Internal Medicine 09/19/15 05/20/19 Corinne Figueroa MD PCP - General Internal Medicine 05/21/19 Landen Collado PA-C [address] [place] [address] Specialist Neurosurgery 04/03/21 documented as of this encounter
--- OUTSIDE RECORDS SUMMARY | 2024-06-14 09:03 | XMS_ITS | Encounter Summary ---
Author Organization [facility] Address [address] [place] [address] Care Team Providers Care Plant Hr Manager Name Role Phone Luis Enrique Cheek MD Primary Care Provider Luis Enrique Granados MD Primary Care Provider Luis Enrique Granados MD Primary Care Provider Corinne De La O MD Primary Care Provider Landen Josue PA-C Unavailable [phone] Encounter Details Date Type Department Care Team Description 02/21/2015 Materials Planner Report Medical Records [address] [place] [address] Selwyn Oliva Social History Tobacco Use Types [...] on filedocumented in this encounter Care Teams Plant Hr Manager Relationship Specialty Start Date End Date Luis Enrique Cheek MD PCP - General Internal Medicine 06/09/14 09/09/15 Luis Enrique Cheek MD PCP - General Internal Medicine 09/10/15 09/18/15 Luis Enrique Cheek MD PCP - General Internal Medicine 09/19/15 05/20/19 Corinne Figueroa MD PCP - General Internal Medicine 05/21/19 Landen Collado PA-C [address] [facility] [address] [place] [address] Specialist Neurosurgery 04/03/21 documented as of this encounter
--- OUTSIDE RECORDS SUMMARY | 2024-06-14 09:03 | XMS_ITS | Encounter Summary ---
Author Organization [facility] Address [address] [place] [address] Care Team Providers Care Business Practices Supervisor Name Role Phone Luis Enrique Cheek MD Primary Care Provider Luis Enrique Granados MD Primary Care Provider Luis Enrique Granados MD Primary Care Provider Corinne De La O MD Primary Care Provider Landen Josue PA-C Unavailable [phone] Encounter Details Date Type Department Care Team Description 06/29/2014 Release of Information Medical Records [address] [place] [id number] Abstract, Provider Social History Tobacco Use Types [...] on filedocumented in this encounter Care Teams Business Practices Supervisor Relationship Specialty Start Date End Date Luis Enrique Cheek MD PCP - General Internal Medicine 06/09/14 09/09/15 Luis Enrique Cheek MD PCP - General Internal Medicine 09/10/15 09/18/15 Luis Enrique Cheek MD PCP - General Internal Medicine 09/19/15 05/20/19 Corinne Figueroa MD PCP - General Internal Medicine 05/21/19 Landen Collado PA-C [address] [facility] [address] [place] [address] Specialist Neurosurgery 04/03/21 documented as of this encounter
--- OUTSIDE RECORDS SUMMARY | 2024-06-14 09:04 | XMS_ITS | Encounter Summary ---
Author Organization [facility] Address [address] [place] [address] Care Team Providers Care High School Librarian Name Role Phone Corinne Figueroa MD Primary Care Provider Landen Josue PA-C Unavailable [phone] Encounter Details Date Type Department Care Team Description 10/29/2019 Telephone Podiatry - [address] [address] Corinne Figueroa MD Social History Tobacco Use [...] on filedocumented in this encounter Care Teams High School Librarian Relationship Specialty Start Date End Date Corinne Figueroa MD PCP - General Internal Medicine 05/21/19 Landen Collado PA-C [address] [facility] [address] [place] [address] Specialist Neurosurgery 04/03/21 documented as of this encounter
[2024-06-14 09:36] LABS: C Reactive Protein < 0.10 mg/dL (< or = 0.50); Lipase 31 U/L (8-78); Magnesium 2.2 mg/dL (1.6-2.6)
[2024-06-14 10:10] LABS: Folate 10.2 ng/mL (> or = 4.0); Vitamin B12 257 pg/mL (200-900)
[2024-06-18 16:14] LABS: Vitamin D 25-OH, D2 6 ng/mL; Vitamin D 25-OH, D3 21 ng/mL; Vitamin D 25-OH, Total 27 ng/mL (30-100)
== END 2024-06-14 07:53 | disposition home or self-care (01) ==
LOC: HO.LAB 07:52
PROVIDERS: PCP Internal Medicine; Visit Provider Nurse Practitioner Family
DX: R10.9 Unspecified abdominal pain (principal); E55.9 Vitamin D deficiency, unspecified; N18.9 Chronic kidney disease, unspecified; K58.0 Irritable bowel syndrome with diarrhea
CPT/HCPCS: 36415; 82306; 82607; 82746; 83690; 83735; 86140; 99202

== ENCOUNTER 2024-06-14 07:52 | Outpatient (AMB) | payer OTHER, SELFPAY ==
--- OUTSIDE RECORDS SUMMARY | 2024-06-14 07:55 | XMS_ITS | Patient Health Record ---
Author Organization [facility] Address [address] [facility] [address] [place] [address] Care Team Providers Care Insulator Helper Name Role Phone Corinne Figueroa Primary Care [...] Once a day Not-Taking Cholecalciferol Not- Taking Ckfbnzhenk-VKFR-Fmogqmye 50-325-40 MG 1 tablet as needed Orally every 4 hrs Active Aspirin 81 MG 1 tablet Orally Once a day Not-Taking Lidocaine 5 % 1 patch remove after 12 hours Externally Active Calcium Citrate + D3 Not-Taking Multivitamin Active Qvar Not-Taking SEROquel XR 200 MG 1 tablet in the evening Orally Once a day 100 MG Active Nasal [place] Active Cyanocobalamin 1000 MCG 1 tablet Orally [...] Problem Status W/U Status Risk Notes Problem [id number] Pain due to bone fixation device, subsequent [...]
--- NOTE | 2024-06-14 08:01 | MHC.OFFVIS ---
Vital Signs 06/14/24 08:11 Height 5 ft 7 in Weight 145 lb BMI 22.7 BP 104/46 L Blood Pressure Location Rt brachial Position Sitting Pulse 82 Pulse Source Pulse Oximeter Pulse Oximetry (%) 97 Oxygen Delivery Method Room Air Intake Visit Reasons: Gastroenteritis & Colitis Intake Note: NEW PATIENT for Gastroenteritis and colitis eval. Imaging done @ ER and fluoroscopy since 01/2024. Prior hx of colo/egd? 2019 RM. Chief Complaint; C/O RLQ and R side pain, frequent loose stools + diarrhea without presentation of hemorrhoids per pt. Pt denies any additional sx or concerns at this time. Molding Machine Setter Required: No Accompanied by: Self / Same As Patient Allergies Iodinated Contrast Media [Iodinated Contrast Media - IV Dye] Allergy (Intermediate, Verified 06/14/24 08:05) HIVES ketorolac [From Toradol] Allergy (Intermediate, Verified 06/14/24 08:05) localized redness/swelling HPI HPI Gastroenteritis & Colitis: Details: LAST COLONOSCOPY WITH DR. ALEXANDER 2019 Findings: Terminal Ileum ? Not evaluated Cecum ? Normal Ascending Colon ? A 1 - 1.5 cms non-bleeding AVM in the proximal AC ablated with APC. An 8-9 mm sessile polyp in distal AC removed with a cold biopsy Transverse Colon - A 6-7 mm sessile polyp removed with a cold biopsy Descending Colon ? Moderate diverticulosis Sigmoid Colon ? Moderate diverticulosis Rectum ? Normal Ano-rectum - Moderate internal hemorrhoids Colon preparation: Good after copious irrigation Impression and Post Procedure Diagnosis: Colonoscopy Findings: Two polyps removed A 1 - 1.5 cms non-bleeding AVM in the proximal AC ablated with APC Moderate diverticulosis seen in the left colon Moderate hemorrhoids on retroflexed exam. Plan: Await pathology results Repeat Colonoscopy interval based on path results ? in 3 years if polyps are adenomatous and 10 years if polyps are hyperplastic. PATHOLOGY: Tubular adenoma ED VISIT 01/20/2024 Medical Decision Making Medical Decision Making MDM Narrative: 63-year-old female with a history of anemia, chronic pain syndrome, arthritis, hyperlipidemia, seizures, multiple sclerosis, anxiety, depression, suicide ideation, spinal stenosis, asthma gastric sleeve surgery 2018, appendectomy, cholecystectomy who presents emergency department for evaluation of lower abdominal pain/cramping, 8.5/10, right lower flank pain, diarrhea 3 episodes of yellow stool daily, decreased appetite and weight loss times 3 months. Vital signs were normal. Physical examination did reveal lower abdominal tenderness with no localizing tenderness, right lower flank tenderness. Differential diagnosis: ?Includes but is not limited to diverticulitis, pancreatitis, bowel malignancy, small-bowel obstruction, internal hernia, anemia, electrolyte abnormalities Patient was initially treated with the following: Morphine 4 mg IV, Zofran 4 mg IV, Benadryl 50 mg IV (10 minutes prior to IV contrast) and normal saline 1 L IV Course: 18:12 My interpretation patient's laboratory evaluation as follows: WBC low 3900, H&H low 11 and 34.3-unchanged since 11/07/2023. MCV was normal. Bicarb elevated 31. LFTs were normal. Lipase was normal. Urinalysis was negative. 00:20 Patient required a 2nd dose of morphine 4 mg IV for pain. CT scan of the abdomen pelvis with IV contrast did not reveal any clear cause for the patient's abdominal pain, diarrhea and weight loss. I did discuss this with the patient. The patient was advised to follow up with her padder cushion for re-evaluation. She was advised to take Tylenol for pain. She was given printed and verbal instructions and discharged home TODAY'S VISIT Patient is here for requested visit. Patient seen in Dr. Alexander in the past and had colonoscopy in 2019 that showed tubular adenoma. Patient was supposed to repeat colonoscopy in 3 years. Patient has been having frequent bowel movements mostly diarrhea and lower abdominal cramping. Yellow loose stools related to food and sometimes after just having water 1st thing when she wakes up in the morning. Patient denies fever or chills. Evaluated back in January in the ED with CT scan that was normal and did not reveal any acute processes. Patient reports that the pain and symptoms have not changed. Patient reports that despite having few loose stools throughout the day she still feels like she does not empty completely. Patient denies melena, hematochezia, unintentional weight loss or ribbon like stools. Patient denies dyspepsia, dysphagia odynophagia. History of cholecystectomy and gastric sleeve in 2018. Patient reports that she lost about 150 lb after the surgery [facility] Medical History Seizure disorder Syncope Cervical spondylosis with radiculopathy Cervical radiculopathy Cervical strain Neck pain Hematoma following procedure Calf pain Incisional pain Postoperative bleeding from incision Cellulitis Anemia Anxiety with depression Fatty liver Back pain Arthritis Abscess or cellulitis of knee Skin laxity Hyperlipidemia GERD (gastroesophageal reflux disease) COVID-19 vaccine administered Postlaminectomy syndrome Bunion of left foot Postconcussion syndrome Labral tear of right hip joint Spinal stenosis Colon polyps Allergic rhinitis Herpes Chronic sinusitis Depression Migraines Asthma Hypotension Malabsorption due to intolerance, not elsewhere classified Surgical History Hx of spinal fusion S/P plastic surgery S/P panniculectomy History of hip surgery History of endometrial ablation S/P tonsillectomy S/P bilateral foot surgery History of appendectomy H/O colonoscopy H/O endoscopy S/P laparoscopic sleeve gastrectomy H/O laminectomy Family History Father No problems noted. Mother Cervical spine tumor Brother No problems noted. Brother No problems noted. Brother No problems noted. Brother No problems noted. Sister Mental health disorder Son No problems noted. Daughter No problems noted. Social History Household Members: Spouse Housing: House Are you a primary director critical care to a significant other at home: No Do you presently have visiting nurse or other home services: No Unable to assess alcohol history related to: Unknown Alcohol intake: former Comment: count correct Patient Tobacco Use Status: Never used Tobacco e-Cigarette/Vaping Use: Never Used Second Hand Smoke Exposure: No Substance Use Type: Marijuana Advance Directives Date on File: 10/28/23 service: No Current occupational status: disabled Cognitive needs: No Hearing needs: No Vision needs: No Review of Systems Const Denies weight gain and Denies weight loss ENT Reports no additional complaints, Denies dysphagia and Denies odynophagia Card Reports no additional complaints Resp Reports no additional complaints GI Reports abdominal pain, Denies belching, Denies melena, Reports bloating, Denies change in bowel habits, Denies dysphagia, Denies excessive flatus, Denies dyspepsia, Denies heartburn, Denies diarrhea, Reports loose stools, Denies nausea, Denies odynophagia and Denies vomiting Reports no additional complaints Musc Reports no additional complaints Neuro Reports no additional complaints Psych Reports no additional complaints Endo Reports no additional complaints Physical Exam Const General: healthy appearing, no acute distress and well developed Nutritional Appearance: well nourished Orientation/consciousness: patient oriented x3 Resp Effort & Inspection: normal respiratory effort, able to speak in complete sentences, no tracheal deviation and symmetric chest movement Auscultation: clear to auscultation bilaterally Cardio Rate: regular rate GI Inspection: Yes normal to inspection and No distended Palpation (GI): Soft to palpation, not firm, nontender and No hepatosplenomegaly present Auscultation: normal bowel sounds General: Yes no CVA tenderness Back/Spine/Pelvis Back: no CVA tenderness Skin General skin exam: elasticity normal, turgor normal and dry skin Neuro General: patient oriented x3 Psych Appearance: grossly normal Mental Status: mental status grossly normal Assessment & Plan Assessment & Plan (1) Chronic diarrhea: Code(s): K52.9 - Noninfective gastroenteritis and colitis, unspecified Category: Medical (2) Abdominal pain: Code(s): R10.9 - Unspecified abdominal pain Qualifiers: Abdominal location: lower abdomen, unspecified Qualified Code(s): R10.30 - Lower abdominal pain, unspecified (3) Postprandial diarrhea: Code(s): K52.9 - Noninfective gastroenteritis and colitis, unspecified Plan Lower abdominal pain and cramping with patient has urge to have a bowel movement. Diarrhea postprandially and sometimes even after drinking water. Will rule out malabsorption, GI panel or, fecal fat ova and parasite and C diff ordered. Patient will take fiber. She states that she has Citrucel at home patient was recommended to take it in the morning. Take senna in the evening 1-2 tablets. Low FODMAP diet discussed with patient. List of food recommended as well as list of food to avoid given to patient. Patient will return in 3 months, sooner on as needed basis. She is agreeable to this plan and verbalizes understanding of instructions. She was given the opportunity to ask questions and all questions answered. Thank you for allowing me to participate in her care Orders: Orders Vitamin D 25-OH (D2 and D3) Today E55.9 - Vitamin D deficiency, unspecified Magnesium Today N18.9 - Chronic kidney disease, unspecified Lipase Today R10.9 - Unspecified abdominal pain CDiff Gene PCR Today R19.7 - Diarrhea, unspecified Vitamin B12 and Folate Today R19.7 - Diarrhea, unspecified C Reactive Protein Today K58.9 - Irritable bowel syndrome, unspecified Fecal Fat Qualitative Today R19.7 - Diarrhea, unspecified GI Panel Today R19.7 - Diarrhea, unspecified Ova and Parasite Today R19.7 - Diarrhea, unspecified Medications: New sennosides (Natural Senna Laxative) 17.2 mg (2 x 8.6 mg) PO BEDTIME 60 tabs 3RF constipation K59.00 - Constipation, unspecified Coding Level of Care Code New Pt Level 4 (16581) Diagnoses Chronic diarrhea K52.9 Lower abdominal pain R10.30 Abdominal location: lower abdomen, unspecified Postprandial diarrhea K52.9 Time Spent (min) 50 Comment 35 minutes spent with patient and additional 15 minutes spent reviewing her records
[2024-06-14 08:11] VITALS: BP 104/46; PULSE 82; O2SAT 97; BMI 22.7
== END 2024-06-14 08:27 | disposition home or self-care (01) ==
LOC: HO.HGI 07:53
PROVIDERS: PCP Internal Medicine; Visit Provider Nurse Practitioner Family
DX: K52.9 Noninfective gastroenteritis and colitis, unspecified (principal); R10.30 Lower abdominal pain, unspecified
CPT/HCPCS: 99204

== ENCOUNTER 2024-06-17 10:19 | Outpatient (AMB) | payer OTHER, SELFPAY ==
--- NOTE | 2024-06-17 10:39 | A.OFFVIS_ITS ---
Vital Signs 06/17/24 10:46 Height 5 ft 7 in Weight 145 lb BMI 22.7 BP 130/66 Blood Pressure Location Rt brachial Position Sitting Pulse 81 Pulse Source Pulse Oximeter Pulse Oximetry (%) 97 Oxygen Delivery Method Room Air Intake Visit Reasons: RIGHT INTRA-ARTICULAR HIP INJECTION Intake Note: Pain today 8.5/10 Pack Mule Worker Required: No Accompanied by: Self / Same As Patient Allergies Iodinated Contrast Media [Iodinated Contrast Media - IV Dye] Allergy (Intermediate, Verified 06/17/24 10:47) HIVES ketorolac [From Toradol] Allergy (Intermediate, Verified 06/17/24 10:47) localized redness/swelling HPI Comments Details: Therese is back in my office today after therapeutic right hip injection. Unfortunately we can not offer this patient oral opioid medications. I recommended her to consider requesting primary care physician to prescribe her oral opioids. As of her treatment with interventional pain management I think we so far exhausted the options to alleviate the pain for this patient. Prior: She is status post caudal BETSEY and right GTB injection on 08/21/22 and Right Therapeutic SIJ injection on 07/24/22 . Caudal BETSEY provided 80% pain relief for radicular back symptoms with improvement in her daily functions and activities. That lasted 3 weeks only. I cannot consider caudal BETSEY repeatin the future for her. 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 the therapeutic injections are impossible to treat her pain in the future. MBB resulted in no pain improvement. I think neuromodulation would be very good thing to do for this patient. MBB resulted in no pain improvement. History of axial pain and pain exacerbated with prolonged sitting give the makes me think about vertebrogenic pain. She went for MRI which demonstrated ve rtebral Modic type changes. However given the choice between spinal cord stimulator and intrathecal pain pump pain relief for this patient which do not require steroid administration and intercept procedure which might require significant doses of steroids I decided to proceed with neuromodulation as Nevro SCS and I DDD BlockBeacons. Nevro SCS was tried on her. She dislodged her electrode due to severe heaving, nausea and vomiting at least 1 full vertebral body down however the top electrode still was positioned at the top of T9 which could potentially give us significant pain relief due to stimulation. However patient denied any help from stimulation. Intrathecal pain pump was discussed in the past with the patient however she is reluctant to go for the procedure. [facility] Medical History Seizure disorder Syncope Cervical spondylosis with radiculopathy Cervical radiculopathy Cervical strain Neck pain Hematoma following procedure Calf pain Incisional pain Postoperative bleeding from incision Cellulitis Anemia Anxiety with depression Fatty liver Back pain Arthritis Abscess or cellulitis of knee Skin laxity Hyperlipidemia GERD (gastroesophageal reflux disease) COVID-19 vaccine administered Postlaminectomy syndrome Bunion of left foot Postconcussion syndrome Labral tear of right hip joint Spinal stenosis Colon polyps Allergic rhinitis Herpes Chronic sinusitis Depression Migraines Asthma Hypotension Malabsorption due to intolerance, not elsewhere classified Surgical History Hx of spinal fusion S/P plastic surgery S/P panniculectomy History of hip surgery History of endometrial ablation S/P tonsillectomy S/P bilateral foot surgery History of appendectomy H/O colonoscopy H/O endoscopy S/P laparoscopic sleeve gastrectomy H/O laminectomy Family History Father No problems noted. Mother Cervical spine tumor Brother No problems noted. Brother No problems noted. Brother No problems noted. Brother No problems noted. Sister Mental health disorder Son No problems noted. Daughter No problems noted. Social History Household Members: Spouse Housing: House Are you a primary intensive care anaesthetist to a significant other at home: No Do you presently have visiting nurse or other home services: No Unable to assess alcohol history related to: Unknown Alcohol intake: former Comment: count correct Patient Tobacco Use Status: Never used Tobacco e-Cigarette/Vaping Use: Never Used Second Hand Smoke Exposure: No Substance Use Type: Marijuana Advance Directives Date on File: 10/28/23 service: No Current occupational status: disabled Cognitive needs: No Hearing needs: No Vision needs: No Review of Systems Const All systems reviewed & are unremarkable except as noted in HPI and below ENT Reports Normal hearing present Neuro Reports Normal hearing present and Denies confusion Psych Denies confusion Physical Exam Vital Signs: Last Vital Signs Pulse 81 06/17/24 10:46 BP 130/66 06/17/24 10:46 Pulse Ox 97 06/17/24 10:46 Oxygen Delivery Method Room Air 06/17/24 10:46 BMI result Body Mass Index 22.7 Const General: cooperative, alert and awake; No confusion Orientation/consciousness: patient oriented x3 and No confusion Resp Effort & Inspection: able to speak in complete sentences, no audible wheezes and no cough Back/Spine/Pelvis Other: Loading test is positive bilaterally tenderness on palpation on lower lumbar and mid lumbar spine, paraspinal regions are less tender on palpation in the area however also cause significant tenderness. Flexing forward and flexing backwards both aggravate pain with flexing backwards to be more aggravating than flexing forward. Pillo test, Gaenslen test, pelvic compression and pelvic distraction test, 14 finger test are all positive on the right. Neuro General: patient oriented x3 and No confusion Cranial nerves: Yes Normal hearing present Cognition (Neuro): normal cognition Extrem Other: Lateral and medial rotation of the right hip causes discomfort in the groin more lateral than medial. Psych Mental Status: mental status grossly normal Speech and movement: Clear speech present Affect: normal affect Attitude: cooperative Thought process: Normal thought process present Thought content: Normal thought content present and No Depressive thoughts present Insight: Good insight present (Psych) Judgement: Good judgement present (Psych) Assessment & Plan Assessment & Plan (1) Trochanteric bursitis of right hip: Code(s): M70.61 - Trochanteric bursitis, right hip Category: Medical (2) Lumbosacral spondylosis with radiculopathy: Code(s): M47.27 - Other spondylosis with radiculopathy, lumbosacral region Category: Medical (3) Right hip pain: Code(s): M25.551 - Pain in right hip Category: Medical (4) Failed back syndrome, lumbar: Code(s): M96.1 - Postlaminectomy syndrome, not elsewhere classified Category: Medical Plan: (5) Chronic pain syndrome: Code(s): G89.4 - Chronic pain syndrome Category: Medical (6) Vertebrogenic low back pain: Code(s): M54.51 - Vertebrogenic low back pain Category: Medical (7) Spondylosis of lumbar region without myelopathy or radiculopathy: Code(s): M47.816 - Spondylosis without myelopathy or radiculopathy, lumbar region Category: Medical (8) Osteoarthritis of right hip: Code(s): M16.11 - Unilateral primary osteoarthritis, right hip Category: Medical Plan Patient is status post caudal BETSEY and right GTB injection on 08/21/22 and Right Therapeutic SIJ injection on 07/24/22 . Caudal BETSEY provided 80% pain relief for radicular back symptoms with improvement in her daily functions and activities. That lasted 3 weeks only. Sacroiliac joint injection which was performed on 04/18/2024 was not effective to control her pain. Right hip Decadron injection which was done on 05/18/2024 resulted in no pain improvement. In the past she tried Nevro SCS in the past it did not alleviate her pain. Her casework manager agreed to use short-acting steroid injections. Unfortunately we can not return this patient to the opioid program because her addiction risk is very high. I recommended her possibly to go to a primary care physician and request prescription of small doses of the opioid medications. Coding Level of Care Code Est Pt Level 2 (05658) Diagnoses Trochanteric bursitis of right hip M70.61 Lumbosacral spondylosis with radiculopathy M47.27 Right hip pain M25.551 Failed back syndrome, lumbar M96.1 Chronic pain syndrome G89.4 Vertebrogenic low back pain M54.51 Spondylosis of lumbar region without myelopathy or radiculopathy M47.816 Osteoarthritis of right hip M16.11
[2024-06-17 10:46] VITALS: BP 130/66; PULSE 81; O2SAT 97; BMI 22.7
--- OUTSIDE RECORDS SUMMARY | 2024-06-17 11:47 | XMS_ITS | Patient Health Record ---
Author Organization [facility] Address [address] [facility] [address] [place] [address] Care Team Providers Care Digital Marketer Name Role Phone Corinne Figueroa Primary Care [...] Once a day Not-Taking Cholecalciferol Not- Taking Zcrtstcnyj-PTGS-Fnesxsfh 50-325-40 MG 1 tablet as needed Orally every 4 hrs Active Aspirin 81 MG 1 tablet Orally Once a day Not-Taking Lidocaine 5 % 1 patch remove after 12 hours Externally Active Calcium Citrate + D3 Not-Taking Multivitamin Active Qvar Not-Taking SEROquel XR 200 MG 1 tablet in the evening Orally Once a day 100 MG Active Nasal [place] Active Cyanocobalamin 1000 MCG 1 tablet Orally [...] Problem Status W/U Status Risk Notes Problem [id number] Pain due to bone fixation device, subsequent [...]
== END 2024-06-17 10:53 | disposition home or self-care (01) ==
LOC: HO.PMC 10:20
PROVIDERS: PCP Internal Medicine; Visit Provider Anesthesiology
DX: M70.61 Trochanteric bursitis, right hip (principal); M47.27 Other spondylosis with radiculopathy, lumbosacral region; M25.551 Pain in right hip; M96.1 Postlaminectomy syndrome, not elsewhere classified; G89.4 Chronic pain syndrome; M54.51 Vertebrogenic low back pain; M47.816 Spondylosis without myelopathy or radiculopathy, lumbar region; M16.11 Unilateral primary osteoarthritis, right hip
CPT/HCPCS: 99212

== ENCOUNTER → 2024-06-17 10:19 | Outpatient (BNVA) | payer OTHER, SELFPAY | PROVIDERS: PCP Internal Medicine; Visit Provider Anesthesiology | DX: M70.61 Trochanteric bursitis, right hip (principal); M47.27 Other spondylosis with radiculopathy, lumbosacral region; M25.551 Pain in right hip; M96.1 Postlaminectomy syndrome, not elsewhere classified; M54.51 Vertebrogenic low back pain; M47.816 Spondylosis without myelopathy or radiculopathy, lumbar region; M16.11 Unilateral primary osteoarthritis, right hip; G89.4 Chronic pain syndrome | CPT/HCPCS: 99212 ==

== ENCOUNTER 2024-06-29 08:38 | Outpatient (REF) | payer OTHER, SELFPAY ==
--- OUTSIDE RECORDS SUMMARY | 2024-06-29 08:58 | XMS_ITS | Encounter Summary ---
Author Organization [facility] Address [address] [place] [address] Care Team Providers Care Telephone Assembler Name Role Phone Luis Enrique Cheek MD Primary Care Provider Luis Enrique Granados MD Primary Care Provider Luis Enrique Granados MD Primary Care Provider Corinne De La O MD Primary Care Provider Landen Josue PA-C Unavailable [phone] Encounter Details Date Type Department Care Team Description 01/24/2015 AOC DIRECTOR INTELLIGENCE OFFICER/[facility] Report Medical Records [address] [place] [id number] Abstract, Provider Social History Tobacco Use Types [...] on filedocumented in this encounter Care Teams Telephone Assembler Relationship Specialty Start Date End Date Luis Enrique Cheek MD PCP - General Internal Medicine 06/09/14 09/09/15 Luis Enrique Cheek MD PCP - General Internal Medicine 09/10/15 09/18/15 Luis Enrique Cheek MD PCP - General Internal Medicine 09/19/15 05/20/19 Corinne Figueroa MD PCP - General Internal Medicine 05/21/19 Landen Collado PA-C [address] [facility] [address] [place] [address] Specialist Neurosurgery 04/03/21 documented as of this encounter
--- OUTSIDE RECORDS SUMMARY | 2024-06-29 08:58 | XMS_ITS | Encounter Summary ---
Author Organization [facility] Address [address] [place] [address] Care Team Providers Care Security Officer Supervisor Name Role Phone Corinne Figueroa MD Primary Care Provider Landen Josue PA-C Unavailable [phone] Reason for Visit * Reason Onset Date Comments Journeyman Tool And Die Maker Feedback 06/28/2021 in network ortho pedics Encounter Details Date Type Department Care Team Description 06/28/2021 Telephone [facility] [place] Neuro[facility] [place] [address] [phone] Lanedn Collado PA-C [address] [address] Journeyman Tool And Die Maker Feedback (in network orthopedics) Social History Tobacco [...] been pended Thank you, [facility] Navigator [phone] [facility] documented in this encounter Plan of Treatment Not on file documented as of this encounter Visit Diagnoses Not on filedocumented in this encounter Care Teams Security Officer Supervisor Relationship Specialty Start Date End Date Corinne Figueroa MD PCP - General Internal Medicine 05/21/19 Landen Collado PA-C [address] [place] [address] Specialist Neurosurgery 04/03/21 documented as of this encounter
--- OUTSIDE RECORDS SUMMARY | 2024-06-29 08:58 | XMS_ITS | Clinical Summary ---
Author Organization [facility] Address [address] [place] [address] Care Team Providers Care Financial Reporting Manager Name Role Phone Corinne Figueroa MD Primary Care Provider Landen Josue PA-C Unavailable [phone] Allergies Active Allergy Reactions Severity Noted Date [...] CR 1 Tab daily. 0 11/24/2018 Active [id number] NE 50-325-40 MG OR TABS (FIORICET, ESGIC) [...] of Vaccination per patient), 02/09/2008 Care Teams Financial Reporting Manager Relationship Specialty Start Date End Date Corinne Figueroa MD PCP - General Internal Medicine 05/21/19 Landen Collado PA-C [address] [place] [address] [address] [place] [address] Specialist Neurosurgery 04/03/21
--- OUTSIDE RECORDS SUMMARY | 2024-06-29 08:58 | XMS_ITS | Encounter Summary ---
Author Organization [facility] Address [address] [place] [address] Care Team Providers Care Art Therapy Specialist Name Role Phone Luis Enrique Cheek MD Primary Care Provider Corinne De La O MD Primary Care Provider Landen Josue PA-C Unavailable [phone] Encounter Details Date Type Department Care Team Description 05/08/2017 Mine Technician Report Medical Records [address] [place] [address] Mika Villanueva MD Social History Tobacco Use [...] filedocumented in this encounter Care Teams Art Therapy Specialist Relationship Specialty Start Date End Date Luis Enrique Cheek MD PCP - General Internal Medicine 09/19/15 05/20/19 Corinne Figueroa MD PCP - General Internal Medicine 05/21/19 Landen Collado PA-C 175 [facility] [address] [place] [address] Specialist Neurosurgery 04/03/21 documented as of this encounter
--- OUTSIDE RECORDS SUMMARY | 2024-06-29 08:58 | XMS_ITS | Encounter Summary ---
Author Organization [facility] Address [address] [place] [address] Care Team Providers Care Full Decator Operator Name Role Phone Corinne Figueroa MD Primary Care Provider Landen Josue PA-C Unavailable Encounter Details Date Type Department Care Team Description 05/04/2021 Orders Only [facility] [place] Neurosurgery [place] [address] [phone] Landen Collado PA-C [address] [address] Social History Tobacco Use Types Packs/Day Years [...] on filedocumented in this encounter Care Teams Full Decator Operator Relationship Specialty Start Date End Date Corinne Figueroa MD PCP - General Internal Medicine 05/21/19 Landen Colaldo PA-C [address] [address] Specialist Neurosurgery 04/03/21 documented as of this encounter
--- OUTSIDE RECORDS SUMMARY | 2024-06-29 08:58 | XMS_ITS | Encounter Summary ---
Author Organization [facility] Address [address] [place] [address] Care Team Providers Care Obiee Architect Name Role Phone Luis Enrique Cheek MD Primary Care Provider Corinne De La O MD Primary Care Provider Landen Josue PA-C Unavailable [phone] Reason for Visit * Reason Comments E-prescribe Rx Request Encounter Details Date Type Department Care Team Description 02/25/2017 Refill Adult Medicine [address] [address] Luis Enrique Cheek MD E-prescribe Rx Request [...] [facility] MEDICAID HMO $0 [place] / Product Type: HMO [id number] documented in this encounter Plan of Treatment Not on file documented as of this encounter Visit Diagnoses Not on filedocumented in this encounter Care Teams Obiee Architect Relationship Specialty Start Date End Date Luis Enrique Cheek MD PCP - General Internal Medicine 09/19/15 05/20/19 Corinne Figueroa MD PCP - General Internal Medicine 05/21/19 Landen Collado PA-C [address] [place] [address] Specialist Neurosurgery 04/03/21 documented as of this encounter
--- OUTSIDE RECORDS SUMMARY | 2024-06-29 08:58 | XMS_ITS | Encounter Summary ---
Author Organization [facility] Address [address] [place] [address] Care Team Providers Care Manufacturing Laborer Name Role Phone Corinne Figueroa MD Primary Care Provider Landen Josue PA-C Unavailable Encounter Details Date Type Department Care Team Description 05/04/2021 SCAN [facility] [place] [address] [phone] Slim Cervantes MD, PHD Social History Tobacco [...] on filedocumented in this encounter Care Teams Manufacturing Laborer Relationship Specialty Start Date End Date Corinne Figueroa MD PCP - General Internal Medicine 05/21/19 Landen Collado PA-C [address] [address] Specialist Neurosurgery 04/03/21 documented as of this encounter
--- OUTSIDE RECORDS SUMMARY | 2024-06-29 08:58 | XMS_ITS | Encounter Summary ---
Author Organization [facility] Address [address] [place] [address] Care Team Providers Care Mesh Cutter Name Role Phone Corinne Figueroa MD Primary Care Provider Landen Josue PA-C Unavailable [phone] Encounter Details Date Type Department Care Team Description 04/04/2021 Release of Information Medical Records [address] [place] [id number] Abstract, Provider Social History Tobacco Use Types [...] on filedocumented in this encounter Care Teams Mesh Cutter Relationship Specialty Start Date End Date Corinne Figueroa MD PCP - General Internal Medicine 05/21/19 Landen Collado PA-C 175 [facility] [address] [place] [address] Specialist Neurosurgery 04/03/21 documented as of this encounter
--- OUTSIDE RECORDS SUMMARY | 2024-06-29 08:58 | XMS_ITS | Encounter Summary ---
Author Organization [facility] Address [address] [place] [address] Care Team Providers Care Bilingual Patient Support Caseworker Name Role Phone Luis Enrique Cheek MD Primary Care Provider Corinne De La O MD Primary Care Provider Landen Josue PA-C Unavailable [phone] Encounter Details Date Type Department Care Team Description 02/22/2016 Barrel Filler Report Medical Records [address] [place] [address] Tabatha Henderson Social History Tobacco Use Types [...] on filedocumented in this encounter Care Teams Bilingual Patient Support Caseworker Relationship Specialty Start Date End Date Luis Enrique Cheek MD PCP - General Internal Medicine 09/19/15 05/20/19 Corinne Figueroa MD PCP - General Internal Medicine 05/21/19 Landen Collado PA-C 175 [facility] [address] [place] [address] Specialist Neurosurgery 04/03/21 documented as of this encounter
--- OUTSIDE RECORDS SUMMARY | 2024-06-29 08:59 | XMS_ITS | Encounter Summary ---
Author Organization [facility] Address [address] [place] [address] Care Team Providers Care Tight Barrel Inspector Name Role Phone Luis Enrique Cheek MD Primary Care Provider Luis Enrique Granados MD Primary Care Provider Luis Enrique Granados MD Primary Care Provider Corinne De La O MD Primary Care Provider Landen Josue PA-C Unavailable [phone] Encounter Details Date Type Department Care Team Description 06/29/2014 Release of Information Medical Records [address] [place] [address] Abstract, Provider Social History Tobacco Use Types [...] on filedocumented in this encounter Care Teams Tight Barrel Inspector Relationship Specialty Start Date End Date Luis Enrique Cheek MD PCP - General Internal Medicine 06/09/14 09/09/15 Luis Enrique Cheek MD PCP - General Internal Medicine 09/10/15 09/18/15 Luis Enrique Cheek MD PCP - General Internal Medicine 09/19/15 05/20/19 Corinne Figueroa MD PCP - General Internal Medicine 05/21/19 Landen Collado PA-C 175 [facility] [address] [place] [address] Specialist Neurosurgery 04/03/21 documented as of this encounter
--- OUTSIDE RECORDS SUMMARY | 2024-06-29 08:59 | XMS_ITS | Encounter Summary ---
Author Organization [facility] Address [address] [place] [address] Care Team Providers Care Parcel Post Truck Driver Name Role Phone Corinne Figueroa MD Primary Care Provider Landen Josue PA-C Unavailable [phone] Encounter Details Date Type Department Care Team Description 10/29/2019 Telephone Podiatry - [address] [address] Corinne Figueroa MD Social History Tobacco Use [...] on filedocumented in this encounter Care Teams Parcel Post Truck Driver Relationship Specialty Start Date End Date Corinne Figueroa MD PCP - General Internal Medicine 05/21/19 Landen Collado PA-C 175 [facility] [address] [place] [address] Specialist Neurosurgery 04/03/21 documented as of this encounter
--- OUTSIDE RECORDS SUMMARY | 2024-06-29 08:59 | XMS_ITS | Encounter Summary ---
Author Organization [facility] Address [address] [place] [address] Care Team Providers Care Hat Blocking Operator Name Role Phone Luis Enrique Cheek MD Primary Care Provider Corinne De La O MD Primary Care Provider Landen Josue PA-C Unavailable [phone] Reason for Visit * Reason Comments E-prescribe Rx Request Encounter Details Date Type Department Care Team Description 06/01/2018 Refill Physiatry - [place] [address] [place] [address] Jamal Mir DO E-prescribe Rx Request Social [...] limb documented in this encounter Care Teams Hat Blocking Operator Relationship Specialty Start Date End Date Luis Enrique Cheek MD PCP - General Internal Medicine 09/19/15 05/20/19 Corinne Figueroa MD PCP - General Internal Medicine 05/21/19 Landen Collado PA-C [address] [place] [address] Specialist Neurosurgery 04/03/21 documented as of this encounter
--- OUTSIDE RECORDS SUMMARY | 2024-06-29 08:59 | XMS_ITS | Encounter Summary ---
Author Organization [facility] Address [address] [place] [address] Care Team Providers Care Animal Hospital Clerk Name Role Phone Luis Enrique Cheek MD Primary Care Provider Luis Enrique Granados MD Primary Care Provider Luis Enrique Granados MD Primary Care Provider Corinne De La O MD Primary Care Provider Landen Josue PA-C Unavailable [phone] Encounter Details Date Type Department Care Team Description 05/19/2015 Release of Information Medical Records [address] [place] [address] Abstract, Provider Social History Tobacco Use Types [...] on filedocumented in this encounter Care Teams Animal Hospital Clerk Relationship Specialty Start Date End Date Luis Enrique Cheek MD PCP - General Internal Medicine 06/09/14 09/09/15 Luis Enrique Cheek MD PCP - General Internal Medicine 09/10/15 09/18/15 Luis Enrique Cheek MD PCP - General Internal Medicine 09/19/15 05/20/19 Corinne Figueroa MD PCP - General Internal Medicine 05/21/19 Landen Collado PA-C 175 [facility] [address] [place] [address] Specialist Neurosurgery 04/03/21 documented as of this encounter
--- OUTSIDE RECORDS SUMMARY | 2024-06-29 08:59 | XMS_ITS | Encounter Summary ---
Author Organization [facility] Address [address] [place] [address] Care Team Providers Care President & Founder Name Role Phone Luis Enrique Cheek MD Primary Care Provider Luis Enrique Granados MD Primary Care Provider Luis Enrique Granados MD Primary Care Provider Corinne De La O MD Primary Care Provider Landen Josue PA-C Unavailable [phone] Encounter Details Date Type Department Care Team Description 04/12/2015 Refill Adult Medicine [address] [address] Luis Enrique Cheek MD Social History Tobacco [...] on filedocumented in this encounter Care Teams President & Founder Relationship Specialty Start Date End Date Luis Enrique Cheek MD PCP - General Internal Medicine 06/09/14 09/09/15 Luis Enrique Cheek MD PCP - General Internal Medicine 09/10/15 09/18/15 Luis Enrique Cheek MD PCP - General Internal Medicine 09/19/15 05/20/19 Corinne Figueroa MD PCP - General Internal Medicine 05/21/19 Landen Collado PA-C [address] [place] [address] Specialist Neurosurgery 04/03/21 documented as of this encounter
--- OUTSIDE RECORDS SUMMARY | 2024-06-29 08:59 | XMS_ITS | Encounter Summary ---
Author Organization [facility] Address [address] [place] [address] Care Team Providers Care In Store Representative Name Role Phone oCrinne Figueroa MD Primary Care Provider Landen Josue PA-C Unavailable [phone] Encounter Details Date Type Department Care Team Description 04/19/2020 Lead Burner Helper Report Medical Records [address] [place] [id number] [place] [address] Social History Tobacco Use Types Packs/Day Years [...] on filedocumented in this encounter Care Teams In Store Representative Relationship Specialty Start Date End Date Corinne Figueroa MD PCP - General Internal Medicine 05/21/19 Landen Collado PA-C 175 [facility] [address] [place] [address] Specialist Neurosurgery 04/03/21 documented as of this encounter
--- OUTSIDE RECORDS SUMMARY | 2024-06-29 08:59 | XMS_ITS | Encounter Summary ---
Author Organization [facility] Address [address] [place] [address] Care Team Providers Care Tower Switch Operator Name Role Phone Luis Enrique Cheek MD Primary Care Provider Corinne De La O MD Primary Care Provider Landen Josue PA-C Unavailable [phone] Reason for Visit * Reason Onset Date Comments APPOINTMENT 05/01/2016 cancellation lis t Encounter Details Date Type Department Care Team Description 05/01/2016 Telephone Podiatry - [address] [address] Raeann Mota DPM APPOINTMENT (cancellation list) Social [...] on filedocumented in this encounter Care Teams Tower Switch Operator Relationship Specialty Start Date End Date Luis Enrique Cheek MD PCP - General Internal Medicine 09/19/15 05/20/19 Corinne Figueroa MD PCP - General Internal Medicine 05/21/19 Landen Collado PA-C [address] [place] [address] Specialist Neurosurgery 04/03/21 documented as of this encounter
--- OUTSIDE RECORDS SUMMARY | 2024-06-29 08:59 | XMS_ITS | Encounter Summary ---
Author Organization [facility] Address [address] [place] [address] Care Team Providers Care Financial Quantitative Analyst Name Role Phone Luis Enrique Cheek MD Primary Care Provider Corinne De La O MD Primary Care Provider Landen Josue PA-C Unavailable [phone] Encounter Details Date Type Department Care Team Description 12/05/2015 [facility] Medical Records [address] [place] [address] Abstract, Provider Social History Tobacco Use Types [...] on filedocumented in this encounter Care Teams Financial Quantitative Analyst Relationship Specialty Start Date End Date Luis Enrique Cheek MD PCP - General Internal Medicine 09/19/15 05/20/19 Corinne Figueroa MD PCP - General Internal Medicine 05/21/19 Landen Collado PA-C 175 [facility] [address] [place] [address] Specialist Neurosurgery 04/03/21 documented as of this encounter
--- OUTSIDE RECORDS SUMMARY | 2024-06-29 08:59 | XMS_ITS | Encounter Summary ---
Author Organization [facility] Address [address] [place] [address] Care Team Providers Care Fire Ranger Name Role Phone Luis Enrique Cheek MD Primary Care Provider Corinne De La O MD Primary Care Provider Landen Josue PA-C Unavailable [phone] Encounter Details Date Type Department Care Team Description 02/01/2016 Aeronautical Engineering Teacher Report Medical Records [address] [place] [address] Tabatha Henderson Social History Tobacco Use Types [...] on filedocumented in this encounter Care Teams Fire Ranger Relationship Specialty Start Date End Date Luis Enrique Cheek MD PCP - General Internal Medicine 09/19/15 05/20/19 Corinne Figueroa MD PCP - General Internal Medicine 05/21/19 Landen Collado PA-C 175 [facility] [address] [place] [address] Specialist Neurosurgery 04/03/21 documented as of this encounter
--- OUTSIDE RECORDS SUMMARY | 2024-06-29 08:59 | XMS_ITS | Encounter Summary ---
Author Organization [facility] Address [address] [place] [address] Care Team Providers Care Glass Production Machine Operator Name Role Phone Luis Enrique Cheek MD Primary Care Provider Corinne De La O MD Primary Care Provider Landen Josue PA-C Unavailable [phone] Encounter Details Date Type Department Care Team Description 11/07/2015 Controlled Substance Plan Medical Records [address] [place] [address] Abstract, Provider Social History Tobacco Use Types [...] on filedocumented in this encounter Care Teams Glass Production Machine Operator Relationship Specialty Start Date End Date Luis Enrique Cheek MD PCP - General Internal Medicine 09/19/15 05/20/19 Corinne Figueroa MD PCP - General Internal Medicine 05/21/19 Landen Collado PA-C 175 [facility] [address] [place] [address] Specialist Neurosurgery 04/03/21 documented as of this encounter
--- OUTSIDE RECORDS SUMMARY | 2024-06-29 08:59 | XMS_ITS | Encounter Summary ---
Author Organization [facility] Address [address] [place] [address] Care Team Providers Care Reverse Logistics Analyst Name Role Phone Luis Enrique Cheek MD Primary Care Provider Corinne De La O MD Primary Care Provider Landen Josue PA-C Unavailable [phone] Encounter Details Date Type Department Care Team Description 09/01/2017 [facility] Medical Records [address] [place] [address] Abstract, Provider Social History Tobacco Use Types [...] on filedocumented in this encounter Care Teams Reverse Logistics Analyst Relationship Specialty Start Date End Date Luis Enrique Cheek MD PCP - General Internal Medicine 09/19/15 05/20/19 Corinne Figueroa MD PCP - General Internal Medicine 05/21/19 Landen Collado PA-C 175 [facility] [address] [place] [address] Specialist Neurosurgery 04/03/21 documented as of this encounter
--- OUTSIDE RECORDS SUMMARY | 2024-06-29 08:59 | XMS_ITS | Encounter Summary ---
Author Organization [facility] Address [address] [place] [address] Care Team Providers Care Painter Ordnance Name Role Phone Luis Enrique Cheek MD Primary Care Provider Corinne De La O MD Primary Care Provider Landen Josue PA-C Unavailable [phone] Reason for Visit * Reason Comments E-prescribe Rx Request Encounter Details Date Type Department Care Team Description 08/11/2016 Refill Adult Medicine [address] [address] Luis Enrique Cheek MD E-prescribe Rx Request [...] [facility] MEDICAID HMO $0 [place] / Product Type: HMO [id number] documented in this encounter Plan of Treatment Not on file documented as of this encounter Visit Diagnoses Not on filedocumented in this encounter Care Teams Painter Ordnance Relationship Specialty Start Date End Date Luis Enrique Cheek MD PCP - General Internal Medicine 09/19/15 05/20/19 Corinne Figueroa MD PCP - General Internal Medicine 05/21/19 Landen Collado PA-C [address] [place] [address] Specialist Neurosurgery 04/03/21 documented as of this encounter
--- OUTSIDE RECORDS SUMMARY | 2024-06-29 08:59 | XMS_ITS | Encounter Summary ---
Author Organization [facility] Address [address] [place] [address] Care Team Providers Care Voice Studies Director Name Role Phone Luis Enrique Cheek MD Primary Care Provider Corinne De La O MD Primary Care Provider Landen Josue PA-C Unavailable [phone] Encounter Details Date Type Department Care Team Description 05/12/2018 [facility] Medical Records [address] [place] [address] Jamal Mir DO Social History Tobacco Use [...] on filedocumented in this encounter Care Teams Voice Studies Director Relationship Specialty Start Date End Date Luis Enrique Cheek MD PCP - General Internal Medicine 09/19/15 05/20/19 Corinne Figueroa MD PCP - General Internal Medicine 05/21/19 Landen Collado PA-C 175 [facility] [address] [place] [address] Specialist Neurosurgery 04/03/21 documented as of this encounter
--- OUTSIDE RECORDS SUMMARY | 2024-06-29 08:59 | XMS_ITS | Encounter Summary ---
Author Organization [facility] Address [address] [place] [address] Care Team Providers Care Divisional Storekeeper Name Role Phone Luis Enrique Cheek MD Primary Care Provider Corinne De La O MD Primary Care Provider Landen Josue PA-C Unavailable [phone] Encounter Details Date Type Department Care Team Description 12/06/2015 Release of Information Medical Records [address] [place] [phone] Abstract, Provider Social History Tobacco Use Types [...] on filedocumented in this encounter Care Teams Divisional Storekeeper Relationship Specialty Start Date End Date Luis Enrique Cheek MD PCP - General Internal Medicine 09/19/15 05/20/19 Corinne Figueroa MD PCP - General Internal Medicine 05/21/19 Landen Collado PA-C 175 [facility] [address] [place] [address] Specialist Neurosurgery 04/03/21 documented as of this encounter
--- OUTSIDE RECORDS SUMMARY | 2024-06-29 08:59 | XMS_ITS | Encounter Summary ---
Author Organization [facility] Address [address] [place] [address] Care Team Providers Care Balance Bridge Inspector Name Role Phone Luis Enrique Cheek MD Primary Care Provider Luis Enrique Granados MD Primary Care Provider Luis Enrique Granados MD Primary Care Provider Corinne De La O MD Primary Care Provider Landen Josue PA-C Unavailable [phone] Encounter Details Date Type Department Care Team Description 02/21/2015 Frame Stripper And Crusher Report Medical Records [address] [place] [address] Selwyn Oliva Social History Tobacco Use Types [...] on filedocumented in this encounter Care Teams Balance Bridge Inspector Relationship Specialty Start Date End Date Luis Enrique Cheek MD PCP - General Internal Medicine 06/09/14 09/09/15 Luis Enrique Cheek MD PCP - General Internal Medicine 09/10/15 09/18/15 Luis Enrique Cheek MD PCP - General Internal Medicine 09/19/15 05/20/19 Corinne Figueroa MD PCP - General Internal Medicine 05/21/19 Landen Collado PA-C 175 [facility] [address] [place] [address] Specialist Neurosurgery 04/03/21 documented as of this encounter
--- OUTSIDE RECORDS SUMMARY | 2024-06-29 08:59 | XMS_ITS | Encounter Summary ---
Author Organization [facility] Address [address] [place] [address] Care Team Providers Care Housing Inspector Name Role Phone Luis Enrique Cheek MD Primary Care Provider Corinne De La O MD Primary Care Provider Landen Josue PA-C Unavailable [phone] Encounter Details Date Type Department Care Team Description 05/12/2018 [facility] Medical Records [address] [place] [address] Jamal Mir DO Social History Tobacco Use [...] on filedocumented in this encounter Care Teams Housing Inspector Relationship Specialty Start Date End Date Luis Enrique Cheek MD PCP - General Internal Medicine 09/19/15 05/20/19 Corinne Figueroa MD PCP - General Internal Medicine 05/21/19 Landen Collado PA-C 175 [facility] [address] [place] [address] Specialist Neurosurgery 04/03/21 documented as of this encounter
--- OUTSIDE RECORDS SUMMARY | 2024-06-29 08:59 | XMS_ITS | Encounter Summary ---
Author Organization [facility] Address [address] [place] [address] Care Team Providers Care Motor Vehicle Emissions Inspector Name Role Phone Luis Enrique Cheek MD Primary Care Provider Corinne De La O MD Primary Care Provider Landen Josue PA-C Unavailable [phone] Encounter Details Date Type Department Care Team Description 12/08/2018 [facility] Medical Records [address] [place] [address] Jamal Mir DO Social History Tobacco Use [...] filedocumented in this encounter Care Teams Motor Vehicle Emissions Inspector Relationship Specialty Start Date End Date Luis Enrique Cheek MD PCP - General Internal Medicine 09/19/15 05/20/19 Corinne Figueroa MD PCP - General Internal Medicine 05/21/19 Landen Collado PA-C 175 [facility] [address] [place] [address] Specialist Neurosurgery 04/03/21 documented as of this encounter
--- OUTSIDE RECORDS SUMMARY | 2024-06-29 08:59 | XMS_ITS | Encounter Summary ---
Author Organization [facility] Address [address] [place] [address] Care Team Providers Care Resident Surgeon Name Role Phone Luis Enrique Cheek MD Primary Care Provider Corinne De La O MD Primary Care Provider Landen Josue PA-C Unavailable [phone] Reason for Visit * Reason Onset Date Comments Provider Call Back 12/04/2016 injection 12/04/2016 Encounter Details Date Type Department Care Team Description 12/04/2016 Telephone Adult Medicine [address] [address] Luis Enrique Cheek MD Provider Call Back; [...] naproxen and robaxin called into [facility] [place]. She will notify office if no improvement [...] patient would like a call back at [phone] * Telephone Encounter - Renetta Tolentino L.P.N. [...] on filedocumented in this encounter Care Teams Resident Surgeon Relationship Specialty Start Date End Date Luis Enrique Cheek MD PCP - General Internal Medicine 09/19/15 05/20/19 Corinne Figueroa MD PCP - General Internal Medicine 05/21/19 Landen Collado PA-C [address] [place] [address] Specialist Neurosurgery 04/03/21 documented as of this encounter
--- OUTSIDE RECORDS SUMMARY | 2024-06-29 08:59 | XMS_ITS | Encounter Summary ---
Author Organization [facility] Address [address] [place] [address] Care Team Providers Care Sheriff'S Officer Name Role Phone Luis Enrique Cheek MD Primary Care Provider Corinne De La O MD Primary Care Provider Landen Josue PA-C Unavailable [phone] Reason for Visit * Reason Comments E-prescribe Rx Request Encounter Details Date Type Department Care Team Description 12/18/2017 Refill Adult Medicine [address] [address] Luis Enrique Cheek MD E-prescribe Rx Request [...] an upcoming appointment? [facility] [...] insurance carrier is: [place] / Plan: MEDICARE-[employer] / Product Type: MEDICARE [id number] documented in this encounter Plan of Treatment Not on file documented as of this encounter Visit Diagnoses Not on filedocumented in this encounter Care Teams Sheriff'S Officer Relationship Specialty Start Date End Date Luis Enrique Cheek MD PCP - General Internal Medicine 09/19/15 05/20/19 Corinne Figueroa MD PCP - General Internal Medicine 05/21/19 Landen Collado PA-C [address] [place] [address] Specialist Neurosurgery 04/03/21 documented as of this encounter
--- OUTSIDE RECORDS SUMMARY | 2024-06-29 08:59 | XMS_ITS | Encounter Summary ---
Author Organization [facility] Address [address] [place] [address] Care Team Providers Care Cio Name Role Phone Luis Enrique Cheek MD Primary Care Provider Corinne De La O MD Primary Care Provider Landen Josue PA-C Unavailable [phone] Encounter Details Date Type Department Care Team Description 01/03/2016 Controlled Substance Plan Medical Records [address] [place] [address] Abstract, Provider Social History Tobacco Use Types [...] on filedocumented in this encounter Care Teams Cio Relationship Specialty Start Date End Date Luis Enrique Cheek MD PCP - General Internal Medicine 09/19/15 05/20/19 Corinne Figueroa MD PCP - General Internal Medicine 05/21/19 Landen Collado PA-C 175 [facility] [address] [place] [address] Specialist Neurosurgery 04/03/21 documented as of this encounter
--- OUTSIDE RECORDS SUMMARY | 2024-06-29 08:59 | XMS_ITS | Encounter Summary ---
Author Organization [facility] Address [address] [place] [address] Care Team Providers Care Biological Technician Name Role Phone Luis Enrique Cheek MD Primary Care Provider Corinne De La O MD Primary Care Provider Landen Josue PA-C Unavailable [phone] Reason for Visit * Reason Onset Date Comments refill request 10/14/2017 Encounter Details Date Type Department Care Team Description 10/14/2017 Refill Physiatry - [address] [address] Jamal Mir DO refill request Social History [...] insurance carrier is: [place] / [place] / Product Type: MEDICARE [id number] Patient is not sure if Dr Mir [...] limb documented in this encounter Care Teams Biological Technician Relationship Specialty Start Date End Date Luis Enrique Cheek MD PCP - General Internal Medicine 09/19/15 05/20/19 Corinne Figueroa MD PCP - General Internal Medicine 05/21/19 Landen Collado PA-C [address] [place] [address] [place] [address] Specialist Neurosurgery 04/03/21 documented as of this encounter
--- OUTSIDE RECORDS SUMMARY | 2024-06-29 08:59 | XMS_ITS | Encounter Summary ---
Author Organization [facility] Address [address] [place] [address] Care Team Providers Care Automotive Service Advisor Name Role Phone Luis Enrique Cheek MD Primary Care Provider Corinne De La O MD Primary Care Provider Landen Josue PA-C Unavailable [phone] Encounter Details Date Type Department Care Team Description 09/21/2018 Refill Adult Medicine [address] [address] Luis Enrique Cheek MD Social History Tobacco [...] an upcoming appointment? No[facility] for [facility] due to [...] N/A Patients current insurance carrier is: Payor: [facility] / Plan: [facility] / Product Type: HMO [id number] documented in this encounter Plan of Treatment Not on file documented as of this encounter Visit Diagnoses Not on filedocumented in this encounter Care Teams Automotive Service Advisor Relationship Specialty Start Date End Date Luis Enrique Cheek MD PCP - General Internal Medicine 09/19/15 05/20/19 Corinne Figueroa MD PCP - General Internal Medicine 05/21/19 Landen Collado PA-C [address] [place] [address] Specialist Neurosurgery 04/03/21 documented as of this encounter
--- OUTSIDE RECORDS SUMMARY | 2024-06-29 08:59 | XMS_ITS | Encounter Summary ---
Author Organization [facility] Address [address] [place] [address] Care Team Providers Care Supervisor Shaving And Splitting Name Role Phone Luis Enrique Cheek MD Primary Care Provider Corinne De La O MD Primary Care Provider Landen Josue PA-C Unavailable [phone] Reason for Visit * Reason Comments E-prescribe Rx Request Encounter Details Date Type Department Care Team Description 11/21/2017 Refill Physiatry - [place] [address] [place] [address] Christine Boyer MD [address] [place] [address] [place] [address] E-prescribe Rx Request Social History Tobacco Use [...] documented in this encounter Care Teams Supervisor Shaving And Splitting Relationship Specialty Start Date End Date Luis Enrique Cheek MD PCP - General Internal Medicine 09/19/15 05/20/19 Corinne Figueroa MD PCP - General Internal Medicine 05/21/19 Landen Collado PA-C [address] [place] [address] Specialist Neurosurgery 04/03/21 documented as of this encounter
--- OUTSIDE RECORDS SUMMARY | 2024-06-29 08:59 | XMS_ITS | Encounter Summary ---
Author Organization [facility] Address [address] [place] [address] Care Team Providers Care Rural Electrification Engineer Name Role Phone Corinne Figueroa MD Primary Care Provider Landen Josue PA-C Unavailable [phone] Encounter Details Date Type Department Care Team Description 06/06/2020 Young Adult Librarian Report Medical Records [address] [place] [address] Abstract, Provider Social History Tobacco Use Types [...] on filedocumented in this encounter Care Teams Rural Electrification Engineer Relationship Specialty Start Date End Date Corinne Figueroa MD PCP - General Internal Medicine 05/21/19 Landen Collado PA-C [address] [facility] [address] [place] [address] Specialist Neurosurgery 04/03/21 documented as of this encounter
--- OUTSIDE RECORDS SUMMARY | 2024-06-29 08:59 | XMS_ITS | Encounter Summary ---
Author Organization [facility] Address [address] [place] [address] Care Team Providers Care Tare Weigher Name Role Phone Corinne Figueroa MD Primary Care Provider Landen Josue PA-C Unavailable [phone] Reason for Visit * Reason Comments E-prescribe Rx Request Encounter Details Date Type Department Care Team Description 11/18/2019 Refill Physiatry - [place] [address] [place] [address] Jamal Mir DO E-prescribe Rx Request Social [...] limb documented in this encounter Care Teams Tare Weigher Relationship Specialty Start Date End Date Corinne Figueroa MD PCP - General Internal Medicine 05/21/19 Landen Collado PA-C [address] [place] [address] Specialist Neurosurgery 04/03/21 documented as of this encounter
--- OUTSIDE RECORDS SUMMARY | 2024-06-29 08:59 | XMS_ITS | Encounter Summary ---
Author Organization [facility] Address [address] [place] [address] Care Team Providers Care Clinical Informatics Specialist Name Role Phone Luis Enrique Cheek MD Primary Care Provider Luis Enrique Granados MD Primary Care Provider Luis Enrique Granados MD Primary Care Provider Corinne De La O MD Primary Care Provider Landen Josue PA-C Unavailable [phone] Encounter Details Date Type Department Care Team Description 03/01/2015 [facility] Medical Records [address] [place] [address] Raeann Mota DPM Social History Tobacco Use [...] on filedocumented in this encounter Care Teams Clinical Informatics Specialist Relationship Specialty Start Date End Date Luis Enrique Cheek MD PCP - General Internal Medicine 06/09/14 09/09/15 Luis Enrique Cheek MD PCP - General Internal Medicine 09/10/15 09/18/15 Luis Enrique Cheek MD PCP - General Internal Medicine 09/19/15 05/20/19 Corinne Figueroa MD PCP - General Internal Medicine 05/21/19 Landen Collado PA-C [address] [facility] [address] [place] [address] Specialist Neurosurgery 04/03/21 documented as of this encounter
--- OUTSIDE RECORDS SUMMARY | 2024-06-29 08:59 | XMS_ITS | Encounter Summary ---
Author Organization [facility] Address [address] [place] [address] Care Team Providers Care Centrifugal Machine Tender Name Role Phone Luis Enrique Cheek MD Primary Care Provider Luis Enrique Granados MD Primary Care Provider Luis Enrique Granados MD Primary Care Provider Corinne De La O MD Primary Care Provider Landen Josue PA-C Unavailable [phone] Encounter Details Date Type Department Care Team Description 05/22/2015 Balance Recesser Report Medical Records [address] [place] [address] Koko Avery Social History Tobacco Use Types [...] on filedocumented in this encounter Care Teams Centrifugal Machine Tender Relationship Specialty Start Date End Date Luis Enrique Cheek MD PCP - General Internal Medicine 06/09/14 09/09/15 Luis Enrique Cheek MD PCP - General Internal Medicine 09/10/15 09/18/15 Luis Enrique Cheek MD PCP - General Internal Medicine 09/19/15 05/20/19 Corinne Figueroa MD PCP - General Internal Medicine 05/21/19 Landen Collado PA-C 175 [facility] [address] [place] [address] Specialist Neurosurgery 04/03/21 documented as of this encounter
--- OUTSIDE RECORDS SUMMARY | 2024-06-29 08:59 | XMS_ITS | Encounter Summary ---
Author Organization [facility] Address [address] [place] [address] Care Team Providers Care Brine Supervisor Name Role Phone Luis Enrique Cheek MD Primary Care Provider Corinne De La O MD Primary Care Provider Landen Josue PA-C Unavailable [phone] Reason for Visit * Reason Comments E-prescribe Rx Request Encounter Details Date Type Department Care Team Description 03/28/2019 Refill Adult Medicine [address] [address] Una Bagley PA-C [address] [place] [address] E-prescribe Rx Request Social History Tobacco Use [...] N/A Patients current insurance carrier is: Payor: [facility] / Plan: [facility] / Product Type: HMO [id number] documented in this encounter Plan of Treatment Not on file documented as of this encounter Visit Diagnoses Not on filedocumented in this encounter Care Teams Brine Supervisor Relationship Specialty Start Date End Date Luis Enrique Cheek MD PCP - General Internal Medicine 09/19/15 05/20/19 Corinne Figueroa MD PCP - General Internal Medicine 05/21/19 Landen Collado PA-C [address] [place] [address] Specialist Neurosurgery 04/03/21 documented as of this encounter
--- OUTSIDE RECORDS SUMMARY | 2024-06-29 08:59 | XMS_ITS | Encounter Summary ---
Author Organization [facility] Address [address] [place] [address] Care Team Providers Care Vice President Education Name Role Phone Luis Enrique Cheek MD Primary Care Provider Corinne De La O MD Primary Care Provider Landen Josue PA-C Unavailable [phone] Encounter Details Date Type Department Care Team Description 03/15/2016 [facility] Medical Records [address] [place] [address] Torsten Samano MD Social History Tobacco Use [...] on filedocumented in this encounter Care Teams Vice President Education Relationship Specialty Start Date End Date Luis Enrique Cheek MD PCP - General Internal Medicine 09/19/15 05/20/19 Corinne Figueroa MD PCP - General Internal Medicine 05/21/19 Landen Collado PA-C 175 [facility] [address] [place] [address] Specialist Neurosurgery 04/03/21 documented as of this encounter
--- OUTSIDE RECORDS SUMMARY | 2024-06-29 08:59 | XMS_ITS | Encounter Summary ---
Author Organization [facility] Address [address] [place] [address] Care Team Providers Care Hand Trimmer Name Role Phone Luis Enrique Cheek MD Primary Care Provider Luis Enrique Granados MD Primary Care Provider Luis Enrique Granados MD Primary Care Provider Corinne De La O MD Primary Care Provider Landen Josue PA-C Unavailable [phone] Encounter Details Date Type Department Care Team Description 08/30/2015 Transfer Records Medical Records [address] [place] [address] Abstract, Provider Social History Tobacco Use Types [...] 2015 9:37 AM Transfer records received from [facility] sent to Dr.Barbara Alvarez/[facility] dept forabstracting. documented in this encounter Plan of Treatment Not on file documented as of this encounter Visit Diagnoses Not on filedocumented in this encounter Care Teams Hand Trimmer Relationship Specialty Start Date End Date Luis Enrique Cheek MD PCP - General Internal Medicine 06/09/14 09/09/15 Luis Enrique Cheek MD PCP - General Internal Medicine 09/10/15 09/18/15 Luis Enrique Cheek MD PCP - General Internal Medicine 09/19/15 05/20/19 Corinne Figueroa MD PCP - General Internal Medicine 05/21/19 Landen Collado PA-C [address] [place] [address] Specialist Neurosurgery 04/03/21 documented as of this encounter
--- OUTSIDE RECORDS SUMMARY | 2024-06-29 08:59 | XMS_ITS | Encounter Summary ---
Author Organization [facility] Address [address] [place] [address] Care Team Providers Care Compensation Programs Manager Name Role Phone Luis Enrique Cheek MD Primary Care Provider Corinne De La O MD Primary Care Provider Landen Josue PA-C Unavailable [phone] Encounter Details Date Type Department Care Team Description 03/17/2016 [facility] Medical Records [address] [place] [address] Foreign Garcia Social History Tobacco Use Types [...] on filedocumented in this encounter Care Teams Compensation Programs Manager Relationship Specialty Start Date End Date Luis Enrique Cheek MD PCP - General Internal Medicine 09/19/15 05/20/19 Corinne Figueroa MD PCP - General Internal Medicine 05/21/19 Landen Collado PA-C 175 [facility] [address] [place] [address] Specialist Neurosurgery 04/03/21 documented as of this encounter
[2024-06-29 10:30] LABS: CDiff Gene PCR NEGATIVE (Negative)
[2024-06-29 14:40] LABS: Adenovirus F 40/41 Not Detected (Not Detect.); Astrovirus Not Detected (Not Detect.); Campylobacter Not Detected (Not Detect.); Cryptosporidium Not Detected (Not Detect.); Cyclospora cayetanensis Not Detected (Not Detect.); E. coli EAEC Not Detected (Not Detect.); E. coli EPEC Not Detected (Not Detect.); E. coli ETEC Not Detected (Not Detect.); E. coli STEC Not Detected (Not Detect.); Entamoeba histolytica Not Detected (Not Detect.); Giardia lamblia Not Detected (Not Detect.); Norovirus GI/GII Not Detected (Not Detect.); Plesiomonas shigelloides Not Detected (Not Detect.); Rotavirus A Not Detected (Not Detect.); Salmonella Not Detected (Not Detect.); Sapovirus Not Detected (Not Detect.); Shigella sp./EIEC Not Detected (Not Detect.); Vibrio Not Detected (Not Detect.); Vibrio Cholerae Not Detected (Not Detect.); Yersinia enterocolitica Not Detected (Not Detect.)
[2024-07-02 15:48] LABS: Fecal Fat Qualitative Normal (Normal)
== END 2024-06-29 08:39 | disposition home or self-care (01) ==
LOC: HO.LNP 08:38
PROVIDERS: Visit Provider Nurse Practitioner Family
DX: R19.7 Diarrhea, unspecified (principal)
CPT/HCPCS: 82705; 87177; 87209; 87493; 87507

== ENCOUNTER 2024-08-05 07:44 | Outpatient (REF) | payer OTHER, SELFPAY ==
--- NOTE | ~2024-08-05 | MM_ITS ---
EXAMINATION: MM SCREENING DIGITAL BREAST TOMOSYNTHESIS, BILATERAL CLINICAL INFORMATION: Screening. Asymptomatic. COMPARISON: Mammography: Comparison is made with available priors TECHNIQUE: Digital breast mammography with tomosynthesis is performed in both the craniocaudal and mediolateral oblique views along with computer-aided detection (CAD). FINDINGS: There are scattered areas of fibroglandular density (ACR BI-RADS breast composition Category b). There are no significant masses, abnormal calcifications, or other abnormalities. MM/MM tomosynthesis screening BI IMPRESSION: No mammographic evidence of malignancy. ASSESSMENT: BI-RADS BI-RADS 1 - Negative RECOMMENDATION: Routine annual mammography screening. 1 year F/U This examination should not preclude the clinical evaluation of a suspicious palpable abnormality. This patient's information was entered into a reminder system with a target due date for their next mammogram. Electronically signed by: Destiny Gloria DO 08/10/2024 02:14 PM EDT
--- OUTSIDE RECORDS SUMMARY | 2024-08-05 07:49 | XMS_ITS | Encounter Summary ---
Author Organization [facility] Address [address] [place] [address] Care Team Providers Care Multiple Tube Winding Machine Operator Name Role Phone Corinne Figueroa MD Primary Care Provider Landen Josue PA-C Unavailable [phone] Reason for Visit * Reason Onset Date Comments Cook Fish Eggs Feedback 06/28/2021 in network ortho pedics Encounter Details Date Type Department Care Team Description 06/28/2021 Telephone [facility] Neurosurgery [place] [address] [phone] Landen Collado PA-C [address] [address] Cook Fish Eggs Feedback (in network orthopedics) Social History Tobacco [...] been pended Thank you, [facility] Navigator [phone] [place] [facility] documented in this encounter Plan of Treatment Not on file documented as of this encounter Visit Diagnoses Not on filedocumented in this encounter Care Teams Multiple Tube Winding Machine Operator Relationship Specialty Start Date End Date Corinne Figueroa MD PCP - General Internal Medicine 05/21/19 Landen Collado PA-C [address] [place] [address] Specialist Neurosurgery 04/03/21 documented as of this encounter
== END 2024-08-05 07:45 | disposition home or self-care (01) ==
LOC: HO.MAMMO 07:44
PROVIDERS: PCP Internal Medicine; Visit Provider Internal Medicine
DX: Z12.31 Encounter for screening mammogram for malignant neoplasm of breast (principal)
CPT/HCPCS: 77063; 77067

== ENCOUNTER → 2024-08-05 08:00 | Outpatient (BNV) | payer OTHER, SELFPAY | PROVIDERS: PCP Internal Medicine; Visit Provider Internal Medicine | DX: Z12.31 Encounter for screening mammogram for malignant neoplasm of breast (principal) | CPT/HCPCS: 77063; 77067 ==

== ENCOUNTER 2024-09-08 07:59 | Outpatient (AMB) | payer OTHER, SELFPAY ==
--- NOTE | 2024-09-08 08:09 | A.OFFVIS_ITS ---
Vital Signs 09/08/24 08:13 Height 5 ft 7 in Weight 148 lb BMI 23.2 BP 110/66 Blood Pressure Location Rt brachial Position Sitting Pulse 70 Pulse Source Pulse Oximeter Pulse Oximetry (%) 98 Oxygen Delivery Method Room Air Intake Visit Reasons: 3m ibs diarrhea constipation vit d Intake Note: Est pt for mgmt of chronic gastritis/colitis. Labs done. CC: C.O. chronic abd pain. No additional sx or concerns. Medical Record Coder Required: No Accompanied by: Self / Same As Patient Allergies Iodinated Contrast Media (Iodinated Contrast Media - IV Dye) Allergy (Intermediate, Verified 09/08/24 08:09) HIVES ketorolac (From Toradol) Allergy (Intermediate, Verified 09/08/24 08:09) localized redness/swelling HPI HPI 3m ibs diarrhea constipation vit d: Details: LAST VISIT Chronic diarrhea Abdominal pain Postprandial diarrhea Plan Lower abdominal pain and cramping with patient has urge to have a bowel movement. Diarrhea postprandially and sometimes even after drinking water. Will rule out malabsorption, GI panel or, fecal fat ova and parasite and C diff ordered. Patient will take fiber. She states that she has Citrucel at home patient was recommended to take it in the morning. Take senna in the evening 1-2 tablets. Low FODMAP diet discussed with patient. List of food recommended as well as list of food to avoid given to patient. Patient will return in 3 months, sooner on as needed basis. She is agreeable to this plan and verbalizes understanding of instructions. She was given the opportunity to ask questions and all questions answered. ? Thank you for allowing me to participate in her care Orders Vitamin D 25-OH (D2 and D3) Today E55.9 Magnesium Today N18.9 Lipase Today R10.9 CDiff Gene PCR Today R19.7 Vitamin B12 and Folate Today R19.7 C Reactive Protein Today K58.9 Fecal Fat Qualitative Today R19.7 GI Panel Today R19.7 Ova and Parasite Today R19.7 New sennosides (Natural Senna Laxative) 17.2 mg (2 x 8.6 mg) PO BEDTIME 60 tabs 3RF constipation K59.00 TODAY'S VISIT: Patient is here today for follow-up. We will be sending patient for colonoscopy as well. Patient continues to have IBS symptoms with occasional loose stools and then constipation. Patient currently is trying to avoid certain dietary triggers. Reports abdominal pain in the right lower quadrant, however patient reports that she has tenderness and sensitivity in her right lower back. Patient has seen pain management. States that she is unable to take steroid injections. Managing with gabapentin. Patient denies melena, hematochezia, unintentional weight loss or ribbon like stools. Denies any issues with anesthesia in the past. No history of sleep apnea. History of tubular adenoma on colonoscopy in 2019. Patient is not on any anticoagulation medication. Patient denies any cardiac or respiratory symptoms [facility] Medical History (Updated 09/08/24 @ 10:19 by [place]) IBS (irritable bowel syndrome) Seizure disorder Syncope Cervical spondylosis with radiculopathy Cervical radiculopathy Cervical strain Neck pain Hematoma following procedure Calf pain Incisional pain Postoperative bleeding from incision Cellulitis Anemia Anxiety with depression Fatty liver Back pain Arthritis Abscess or cellulitis of knee Skin laxity Hyperlipidemia GERD (gastroesophageal reflux disease) COVID-19 vaccine administered Postlaminectomy syndrome Bunion of left foot Postconcussion syndrome Labral tear of right hip joint Spinal stenosis Colon polyps Allergic rhinitis Herpes Chronic sinusitis Depression Migraines Asthma Hypotension Malabsorption due to intolerance, not elsewhere classified Surgical History Hx of spinal fusion S/P plastic surgery S/P panniculectomy History of hip surgery History of endometrial ablation S/P tonsillectomy S/P bilateral foot surgery History of appendectomy H/O colonoscopy H/O endoscopy S/P laparoscopic sleeve gastrectomy H/O laminectomy Family History Father No problems noted. Mother Cervical spine tumor Brother No problems noted. Brother No problems noted. Brother No problems noted. Brother No problems noted. Sister Mental health disorder Son No problems noted. Daughter No problems noted. Social History Household Members: Spouse Housing: House Are you a primary care asst to a significant other at home: No Do you presently have visiting nurse or other home services: No Unable to assess alcohol history related to: Unknown Alcohol intake: former Comment: count correct Patient Tobacco Use Status: Never used Tobacco e-Cigarette/Vaping Use: Never Used Second Hand Smoke Exposure: No Substance Use Type: Marijuana Advance Directives Date on File: 10/28/23 service: No Current occupational status: disabled Cognitive needs: No Hearing needs: No Vision needs: No Physical Exam Vital Signs: Last Vital Signs Pulse 70 09/08/24 08:13 BP 110/66 09/08/24 08:13 Pulse Ox 98 09/08/24 08:13 Oxygen Delivery Method Room Air 09/08/24 08:13 BMI result Body Mass Index 23.2 Const General: healthy appearing, no acute distress and well developed Nutritional Appearance: well nourished Orientation/consciousness: patient oriented x3 Resp Effort & Inspection: normal respiratory effort, able to speak in complete sentences, no tracheal deviation and symmetric chest movement Auscultation: clear to auscultation bilaterally Cardio Rate: regular rate GI Inspection: Yes normal to inspection and No distended Palpation (GI): Soft to palpation, not firm, nontender and No hepatosplenomegaly present Auscultation: normal bowel sounds General: Yes no CVA tenderness Back/Spine/Pelvis Back: no CVA tenderness Skin General skin exam: elasticity normal, turgor normal and dry skin Neuro General: patient oriented x3 Psych Appearance: grossly normal Mental Status: mental status grossly normal Results Reviewed Results Reviewed: Laboratory Tests 06/14/24 06/29/24 08:56 07:30 Magnesium 2.2 C-Reactive Protein < 0.10 Lipase 31 Vitamin B12 257 25-OH Vitamin D Total 27 L Folate 10.2 C. difficile Tox B Gene NEGATIVE Assessment & Plan Assessment & Plan (1) Chronic diarrhea: Code(s): K52.9 - Noninfective gastroenteritis and colitis, unspecified Category: Medical (2) IBS (irritable bowel syndrome): Code(s): K58.9 - Irritable bowel syndrome, unspecified Category: Medical Qualifiers: Irritable bowel syndrome type: with both diarrhea and constipation Qualified Code(s): K58.2 - Mixed irritable bowel syndrome (3) GERD (gastroesophageal reflux disease): Code(s): K21.9 - Gastro-esophageal reflux disease without esophagitis Category: Medical Qualifiers: Esophagitis presence: esophagitis presence not specified Qualified Code(s): K21.9 - Gastro-esophageal reflux disease without esophagitis (4) Fatty liver: Code(s): K76.0 - Fatty (change of) liver, not elsewhere classified Category: Medical (5) Screen for colon cancer: Code(s): Z12.11 - Encounter for screening for malignant neoplasm of colon Plan Continue avoiding dietary triggers. Low FODMAP diet discussed with patient. Patient without tenderness in the right lower quadrant. Will send her for ultrasound to rule out hernia. Most likely pain related to gas trapping. Patient will be sent for colonoscopy. Last colonoscopy in 2019 tubular adenoma found. Patient denies any issues with anesthesia in the past. No history of sleep apnea. Not on any anticoagulation medication. Denies any cardiac or respiratory symptoms. What to expect before during and after procedure discussed with patient. Stressed the importance of good bowel prep and clear liquid diet day before procedure. I will see patient after the procedure, sooner on as needed basis. She is agreeable to this plan and verbalizes understanding of instructions. She was given the opportunity to ask questions and all questions answered. Thank you for allowing me to participate in her care Orders: Orders US abdomen limited Today R10.31 - Right lower quadrant pain Medications: New bisacodyl (Dulcolax (bisacodyl)) take 4 tabs at noon the day before your colonoscopy 20 mg (4 x 5 mg) PO ONCE 4 tabs 0RF constipation 1 day Z12.11 - Encounter for screening for malignant neoplasm of colon polyethylene glycol 3350 (Miralax) As directed by gastroenterology department at [facility] 238 grams PO ONCE 238 grams 0RF Z12.11 - Encounter for screening for malignant neoplasm of colon Coding Level of Care Code Est Pt Level 4 (27479) Complex EM visit Add On G2211 Diagnoses Chronic diarrhea K52.9 Irritable bowel syndrome with both constipation and diarrhea K58.2 Irritable bowel syndrome type: with both diarrhea and constipation Gastroesophageal reflux disease, unspecified whether esophagitis present K21.9 Esophagitis presence: esophagitis presence not specified Fatty liver K76.0 Screen for colon cancer Z12.11 Time Spent (min) 35 Comment 25 minutes spent with patient and additional 10 minutes spent reviewing her records
[2024-09-08 08:13] VITALS: BP 110/66; PULSE 70; O2SAT 98; BMI 23.2
== END 2024-09-08 08:36 | disposition home or self-care (01) ==
LOC: HO.HGI 07:59
PROVIDERS: PCP Internal Medicine; Visit Provider Nurse Practitioner Family
DX: K52.9 Noninfective gastroenteritis and colitis, unspecified (principal); K21.9 Gastro-esophageal reflux disease without esophagitis; K76.0 Fatty (change of) liver, not elsewhere classified
CPT/HCPCS: 99214; G2211

== ENCOUNTER → 2024-09-08 07:59 | Outpatient (BNVA) | payer OTHER, SELFPAY | PROVIDERS: PCP Internal Medicine; Visit Provider Nurse Practitioner Family | DX: Z12.11 Encounter for screening for malignant neoplasm of colon (principal); K58.2 Mixed irritable bowel syndrome; K52.9 Noninfective gastroenteritis and colitis, unspecified; K21.9 Gastro-esophageal reflux disease without esophagitis; K76.0 Fatty (change of) liver, not elsewhere classified | CPT/HCPCS: 99212 ==

== ENCOUNTER 2024-10-19 12:38 | Outpatient (REF) | payer OTHER, SELFPAY ==
--- NOTE | ~2024-10-19 | US_ITS ---
CLINICAL HISTORY: R10.31 - Right lower quadrant pain --- Additional Notes or Special Instructions: R O HERNIA Targeted ultrasound of right lower quadrant Comparison: None provided Technique: Targeted sonographic imaging, including color Doppler imaging to the area of interest of right lower quadrant was performed by the powerhouse mechanic helper. Multiple customer operations representative static and cine images were saved for review. Findings: No abdominal wall defect is seen to suggest hernia. No mass, lymphadenopathy, free fluid or loculated fluid collection is seen in this region. Appendix is not visualized. The visualized right iliac artery segment demonstrates elevated peak systolic velocity 191 cm/s. Impression: 1. No acute finding or abdominal wall hernia. 2. Elevated PSV of imaged right iliac artery, could be related to tortuosity or stenosis, CTA can be helpful for further evaluation if warranted. This document has been electronically signed by: Elif Conner MD on 10/20/2024 10:00:13
== END 2024-10-19 12:39 | disposition home or self-care (01) ==
LOC: HO.HMGCX 12:38
PROVIDERS: PCP Internal Medicine; Visit Provider Nurse Practitioner Family
DX: R10.31 Right lower quadrant pain (principal)
CPT/HCPCS: 76857

== ENCOUNTER → 2024-10-19 12:41 | Outpatient (BNV) | payer OTHER, SELFPAY | PROVIDERS: PCP Internal Medicine; Visit Provider Radiology Diagnostic Radiology | DX: R10.31 Right lower quadrant pain (principal) | CPT/HCPCS: 76857 ==

== ENCOUNTER 2024-11-15 07:50 | Day surgery (SDC) | payer OTHER, SELFPAY ==
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
[2024-11-11 11:19] VITALS: BMI 23.2
--- NOTE | 2024-11-15 06:53 | MHC.SHP ---
Pre-Procedural Eval Section A - 24 Hr Update-Section A only Date of Service: 11/15/24 The patient is an INPATIENT: No The patient has been examined within 24 hours of the surgical procedure. The History & Physical has been completed within 30 days and I have reviewed it.: No Section B - Complete if H&P > 30 days Chief Complaint: Surveillance for colon polyps, chronic diarrhea Relevant Family History (Specify if Yes): No Relevant Social History: None Present Medications: see Short Stay Collaborative assessment Medical History: Significant History (GERD (gastroesophageal reflux disease) COVID-19 vaccine administered Postlaminectomy syndrome Bunion of left foot Postconcussion syndrome Labral tear of right hip joint Spinal stenosis Colon polyps Allergic rhinitis Herpes Chronic sinusitis Depression Migraines Asthma) History of Previous Operations: Relevant previous surgery/procedure and date(s) (Hx of spinal fusion S/P plastic surgery S/P panniculectomy History of hip surgery History of endometrial ablation S/P tonsillectomy S/P bilateral foot surgery History of appendectomy H/O colonoscopy H/O endoscopy S/P laparoscopic sleeve gastrectomy H/O laminectomy) Allergies: Allergies Allergy/AdvReac Type Severity Reaction Status Date / Time Iodinated Contrast Media Allergy Intermediate HIVES Verified 09/08/24 08:09 (Iodinated Contrast Media - IV Dye) ketorolac (From Toradol) Allergy Intermediate localized Verified 09/08/24 08:09 redness/swelling Review of Systems Sugical H&P ROS: Negative: Constitution, Cardiovascular, Respiratory and Gastrointestinal Exam Surgical H&P Exam: Normal: Heart, Normal: Lungs, Normal: Extremities and Normal: Abdomen Plan Diagnosis/Plan: Unchanged I have reviewed the history and physical and performed a pertinent physical examination on my patient. No changes have occurred unless specified. Time Spent With Patient Time: Total time managing care of this patient today ____ minutes.
[2024-11-15 07:58] VITALS: BMI 23.8
[2024-11-15] MEDS: Lactated Ringers 1,000 ML 100 ML IVCONT (08:08)
[2024-11-15 08:09] VITALS: BP 125/50; PULSE 76; RESP 18; TEMP 36.6; O2SAT 98
--- NOTE | 2024-11-15 09:29 | HO.OPN-COLON ---
Colonoscopy Operative Note Operative Note Date of Service: 11/15/24 Narrative: COLONOSCOPY TILL CECUM WITH SNARE POLYPECTOMY Pre-op diagnosis: Surveillance for colon polyps. Post-op diagnosis:? Colon polyps, Diverticulosis, hemorrhoids Endoscopist:? Richar Medina MD Anesthesia:?MAC Consent: Indications for the procedure and potential complications of bleeding, perforation, reaction to medications and missed diagnosis were discussed with the patient and informed consent was obtained. Instrument: Olympus PCF H 190 L variable stiffness pediatric colonoscope Monitoring: Vital signs and clinical assessment, intermittent blood pressure monitoring, continuous EKG monitoring, Pulse oximetry and Carbon Dioxide monitoring were done throughout the procedure. Please see anesthesia flowsheet. Colon withdrawl time was 24 minutes. Procedure: The patient was placed in the left lateral decubitis position and pre-procedure medications were administered. After a digital rectal examination of the ano-rectum, the video colonoscope was inserted into the rectum and advanced through the colon to the cecum. The colonoscope was slowly withdrawn in a retrograde panoramic fashion and the colon mucosa was carefully examined including a retroflexed view of the rectum. Findings and interventions are described below. Procedure Difficulty: Colon was long and there was some loop formation Findings: Terminal Ileum: Not evaluated Cecum: Normal Ascending Colon: A 6-7 mm sessile polyp - removed with a cold snare and polyp was not retrieved Transverse Colon: Normal Descending Colon: A 10-12 mm sessile polyp at 65 cms - removed with a hot snare. Moderate diverticulosis Sigmoid Colon: Severe diverticulosis Rectum: Normal Ano-rectum: Moderate internal hemorrhoids Colon preparation: Excellent, after some irrigation. Taylor Bowel Preparation Scale Right colon; 3 Transverse colon: 3 Left colon; 3 (0 = Unprepared colon segment with mucosa not seen due to solid stool that cannot be cleared. 1 = Portion of mucosa of the colon segment seen, but other areas of the colon segment not well seen due to staining, residual stool and/or opaque liquid. 2 = Minor amount of residual staining, small fragments of stool and/or opaque liquid, but mucosa of colon segment seen well. 3 = Entire mucosa of colon segment seen well with no residual staining, small fragments of stool or opaque liquid) Impression and Post Procedure Diagnosis: Colonoscopy Findings: Two small to medium sized polyps were removed Moderate diverticulosis seen in the left colon Moderate hemorrhoids on retroflexed exam. Plan: I will send a letter with biopsy results. Pt has a FU appt on 01/19/25 with Molly Llanes NP Repeat Colonoscopy in 3-5 years if polyps are adenomatous and due to history of adenomatous colon polyps. Above findings were reviewed with the patient and relevant handouts were given and the discharge area.
[2024-11-15 09:33] VITALS: BP 84/35; PULSE 65; RESP 16; TEMP 36.4; O2SAT 98
[2024-11-15 09:48] VITALS: BP 101/48; PULSE 68; RESP 16; TEMP 36.1; O2SAT 100
== END 2024-11-15 10:20 | disposition home or self-care (01) ==
PROVIDERS: PCP Internal Medicine; Visit Provider Internal Medicine Gastroenterology
PROC: 0DJD8ZZ Inspection of Lower Intestinal Tract, Via Natural or Artificial Opening Endoscopic (ICD-10-PCS; CPT 45378; principal; 2024-11-15 08:30)
DX: Z12.11 Encounter for screening for malignant neoplasm of colon (principal); Z86.0101 Personal history of adenomatous and serrated colon polyps; D12.4 Benign neoplasm of descending colon; K63.5 Polyp of colon; K57.30 Diverticulosis of large intestine without perforation or abscess without bleeding; K64.8 Other hemorrhoids; K52.9 Noninfective gastroenteritis and colitis, unspecified; K58.2 Mixed irritable bowel syndrome; K76.0 Fatty (change of) liver, not elsewhere classified; R10.31 Right lower quadrant pain; M54.50 Low back pain, unspecified; M96.1 Postlaminectomy syndrome, not elsewhere classified; G40.909 Epilepsy, unspecified, not intractable, without status epilepticus; D64.9 Anemia, unspecified; J45.909 Unspecified asthma, uncomplicated; E78.5 Hyperlipidemia, unspecified; F41.8 Other specified anxiety disorders; N18.9 Chronic kidney disease, unspecified; E55.9 Vitamin D deficiency, unspecified; Z79.51 Long term (current) use of inhaled steroids; Z79.899 Other long term (current) drug therapy; Z91.041 Radiographic dye allergy status; Z88.8 Allergy status to other drugs, medicaments and biological substances; Z98.890 Other specified postprocedural states
CPT/HCPCS: 45385; 88305; J2003; J2704

== ENCOUNTER → 2024-11-15 07:50 | Outpatient (BNV) | payer OTHER, SELFPAY | PROVIDERS: PCP Internal Medicine; Visit Provider Internal Medicine Gastroenterology | DX: Z12.11 Encounter for screening for malignant neoplasm of colon (principal); D12.2 Benign neoplasm of ascending colon; D12.4 Benign neoplasm of descending colon; K57.90 Diverticulosis of intestine, part unspecified, without perforation or abscess without bleeding; K64.8 Other hemorrhoids | CPT/HCPCS: 45385 ==

== ENCOUNTER 2024-11-25 08:21 | Outpatient (AMB) | payer OTHER, SELFPAY ==
--- NOTE | 2024-11-25 08:29 | A.OFFVIS_ITS ---
Intake Visit Reasons: 6 Months/ White matter Allergies Iodinated Contrast Media (Iodinated Contrast Media - IV Dye) Allergy ( Intermediate, Verified 11/15/24 08:10) HIVES ketorolac (From Toradol) Allergy (Intermediate, Verified 11/15/24 08:10) localized redness/swelling HPI Comments Details: 64 yo woman with cerebral microvascular disease, migraine without aura, benign essential tremor, and complex partial seizure disorder with EEG revealing left temporal sharps. She had multiple admissions in hospital with episodes of lightheadedness, dizziness, spacing out, passing out, but not convulsions. She had an episode and doctor's office and had woken up in hospital not knowing what had happened. She is here with persistent headaches and hand tremor. There is a reported history of mild essential tremor affecting primarily the hands and, occasionally, the feet. Previously, no intervention was recommended as it was classified as benign and non-dangerous, excluding Parkinson?s disease concerns. Headaches have increased in severity, occurring two to three times weekly without a current effective medication plan. The patient references family history concerning cardiovascular conditions, which she takes into consideration under the supervision of a churn tender. [facility] Medical History (Updated 11/25/24 @ 08:36 by Sweta Evans MD) Hypertension Dysautonomia Cervical spondylarthritis IBS (irritable bowel syndrome) Seizure disorder Syncope Cervical spondylosis with radiculopathy Cervical radiculopathy Cervical strain Neck pain Hematoma following procedure Calf pain Incisional pain Postoperative bleeding from incision Cellulitis Anemia Anxiety with depression Fatty liver Back pain Arthritis Abscess or cellulitis of knee Skin laxity Hyperlipidemia GERD (gastroesophageal reflux disease) COVID-19 vaccine administered Postlaminectomy syndrome Bunion of left foot Postconcussion syndrome Labral tear of right hip joint Spinal stenosis Colon polyps Allergic rhinitis Herpes Chronic sinusitis Depression Migraines Asthma Hypotension Malabsorption due to intolerance, not elsewhere classified Surgical History Hx of spinal fusion S/P plastic surgery S/P panniculectomy History of hip surgery History of endometrial ablation S/P tonsillectomy S/P bilateral foot surgery History of appendectomy H/O colonoscopy H/O endoscopy S/P laparoscopic sleeve gastrectomy H/O laminectomy Family History Father No problems noted. Mother Cervical spine tumor Brother No problems noted. Brother No problems noted. Brother No problems noted. Brother No problems noted. Sister Mental health disorder Son No problems noted. Daughter No problems noted. Social History Household Members: Spouse Housing: House Are you a primary career developer to a significant other at home: No Do you presently have visiting nurse or other home services: No Alcohol intake: former Comment: count correct Patient Tobacco Use Status: Never used Tobacco e-Cigarette/Vaping Use: Never Used Second Hand Smoke Exposure: No Substance Use Type: Marijuana Advance Directives Date on File: 10/28/23 service: No Current occupational status: disabled Cognitive needs: No Hearing needs: No Vision needs: No Review of Systems Const Details: - Neurological: Reports hand tremor and dizziness; denies seizures - Cardiovascular: Denies specific cardiovascular diagnoses; family history of heart disease - General: Reports severe headaches occurring two to three times per week - Medications: Reports taking Depakote 500 mg once a day Physical Exam Neuro Other: Mental Status: Alert and oriented to person, place, and time. Normal attention. Normal spontaneous speech, fluency, and comprehension. No obvious issues with mood and memory. Affect is appropriate. Cranial Nerves: CN II: Visual pedraza full to confrontation, visual acuity intact. CN III, IV, : Pupils equal, round, reactive to light and accommodation. Extraocular movements are normal. CN V: Facial sensation is normal. CN VII: Facial movements symmetrical. CN VIII: Hearing intact to bedside conversation is normal. CN IX, X: Palate elevates symmetrically. CN XI: Shoulder shrug and head turn symmetrical. CN XII: Tongue midline without atrophy or fasciculations. Extrapyramidal: Mild bilateral hand postural tremor. Speech: Normal; no dysarthria or tremor. Assessment & Plan Assessment & Plan (1) Seizure disorder: Comment: Meds tried: Keppra (behavioral side effects) Amb EEG at [facility] in Apr 2022: mild left temp irritibility EEG at [facility] in August 2021: slow CT brain WO at [facility] in August 2021: mild MVD MRI brain WO at [facility] in August 2021: multiple WM discrete lesions, atypical, ?demylination, ?ischemic CT C spine at [facility] in August 2021: mid cervical fusion MRI C spine at [facility] in Feb 2021: mod spondylosis Labs at [facility] in August 2021: H/H: /, CMP ok, LFTs ok, LDL 164, HDL 91, Chol 272, Tox sc: + for barbiturate and marijuana Code(s): G40.909 - Epilepsy, unspecified, not intractable, without status epilepticus Category: Medical (2) Migraines: Code(s): G43.909 - Migraine, unspecified, not intractable, without status migrainosus Category: Medical Qualifiers: Migraine type: migraine (< 15 days per month) without aura Status migrainosus presence: without status migrainosus Intractability: not intractable Qualified Code(s): G43.009 - Migraine without aura, not intractable, without status migrainosus (3) Tremor: Code(s): R25.1 - Tremor, unspecified Category: Medical Plan Impression: 1. Complex partial seizure disorder 2. Mild benign essential tremor 3. Migraine without aura Recommendations: 1. Depakote 500 mg extended release 1 at night 2. Sumatriptan 50 mg 1 a day as needed 3. She was reassured and educated about tremor but no medicine was prescribed at this time. Medications: New sumatriptan succinate 50 mg orally one a day as needed PRN; do not exceed 4 doses per 24 hrs 10 tabs 5RF migraine headache 30 days Changed From divalproex ER (Depakote ER) 500 mg PO BID 180 tabs 0RF To divalproex ER (Depakote ER) 500 mg PO ONCE 90 tabs 1RF Coding Level of Care Code Est Pt Level 4 (88140) Diagnoses Seizure disorder G40.909 Migraine without aura and without status migrainosus, not intractable G43.009 Migraine type: migraine (< 15 days per month) without aura Status migrainosus presence: without status migrainosus Intractability: not intractable Tremor R25.1
== END 2024-11-25 08:38 | disposition home or self-care (01) ==
LOC: HO.HSM 08:22
PROVIDERS: PCP Internal Medicine; Referring Provider Internal Medicine; Visit Provider Psychiatry & Neurology Neurology
DX: G40.909 Epilepsy, unspecified, not intractable, without status epilepticus (principal); G43.009 Migraine without aura, not intractable, without status migrainosus; R25.1 Tremor, unspecified
CPT/HCPCS: 99214

== ENCOUNTER → 2024-11-25 08:21 | Outpatient (BNVA) | payer OTHER, SELFPAY | PROVIDERS: PCP Internal Medicine; Referring Provider Internal Medicine; Visit Provider Psychiatry & Neurology Neurology | DX: G40.909 Epilepsy, unspecified, not intractable, without status epilepticus (principal); G43.009 Migraine without aura, not intractable, without status migrainosus; R25.1 Tremor, unspecified | CPT/HCPCS: 99212 ==

== ENCOUNTER 2025-01-19 07:42 | Outpatient (AMB) | payer OTHER, SELFPAY ==
--- NOTE | 2025-01-19 08:10 | A.OFFVIS_ITS ---
Vital Signs 01/19/25 08:12 Height 5 ft 7 in Weight 148 lb BMI 23.2 BP 112/74 Blood Pressure Location Rt brachial Position Sitting Pulse 70 Pulse Source Pulse Oximeter Pulse Oximetry (%) 97 Oxygen Delivery Method Room Air Intake Visit Reasons: ~4 mos FUV. [facility] mgmt. Intake Note: Est pt for mgmt of chronic gastritis/colitis. CC; C/O RLQ pain persistence and intermittent nausea despite current therapies. Pt denies any difficulties with BMs or any upper GI sx. Valet Parker Required: No Accompanied by: Self / Same As Patient Allergies Iodinated Contrast Media (Iodinated Contrast Media - IV Dye) Allergy (Intermediate, Verified 11/15/24 08:10) HIVES ketorolac (From Toradol) Allergy (Intermediate, Verified 11/15/24 08:10) localized redness/swelling HPI HPI ~4 mos FUV. [facility]IC mgmt.: Details: LAST VISIT: Chronic diarrhea IBS (irritable bowel syndrome) GERD (gastroesophageal reflux disease) Fatty liver Screen for colon cancer Plan Continue avoiding dietary triggers. Low FODMAP diet discussed with patient. Patient without tenderness in the right lower quadrant. Will send her for ultrasound to rule out hernia. Most likely pain related to gas trapping. Patient will be sent for colonoscopy. Last colonoscopy in 2019 tubular adenoma found. Patient denies any issues with anesthesia in the past. No history of sleep apnea. Not on any anticoagulation medication. Denies any cardiac or respiratory symptoms. What to expect before during and after procedure discussed with patient. Stressed the importance of good bowel prep and clear liquid diet day before procedure. I will see patient after the procedure, sooner on as needed basis. She is agreeable to this plan and verbalizes understanding of instructions. She was given the opportunity to ask questions and all questions answered. ? Thank you for allowing me to participate in her care Orders US abdomen limited Today R10.31 New bisacodyl (Dulcolax (bisacodyl)) take 4 tabs at noon the day before your colonoscopy 20 mg (4 x 5 mg) PO ONCE 4 tabs 0RF constipation 1 day Z12.11 polyethylene glycol 3350 (Miralax) As directed by gastroenterology department at [facility] 238 grams PO ONCE 238 grams 0RF Z12.11 COLONOSCOPY: Findings: Terminal Ileum: Not evaluated Cecum: Normal Ascending Colon: A 6-7 mm sessile polyp - removed with a cold snare and polyp was not retrieved Transverse Colon: Normal Descending Colon: A 10-12 mm sessile polyp at 65 cms - removed with a hot snare. Moderate diverticulosis Sigmoid Colon: Severe diverticulosis Rectum: Normal Ano-rectum: Moderate internal hemorrhoids Colon preparation: Excellent, after some irrigation. Saltese Bowel Preparation Scale Right colon; 3 Transverse colon: 3 Left colon; 3 (0 = Unprepared colon segment with mucosa not seen due to solid stool that cannot be cleared. 1 = Portion of mucosa of the colon segment seen, but other areas of the colon segment not well seen due to staining, residual stool and/or opaque liquid. 2 = Minor amount of residual staining, small fragments of stool and/or opaque liquid, but mucosa of colon segment seen well. 3 = Entire mucosa of colon segment seen well with no residual staining, small fragments of stool or opaque liquid) Impression and Post Procedure Diagnosis: Colonoscopy Findings: Two small to medium sized polyps were removed Moderate diverticulosis seen in the left colon Moderate hemorrhoids on retroflexed exam. Plan: I will send a letter with biopsy results. Repeat Colonoscopy in 3-5 years if polyps are adenomatous and due to history of adenomatous colon polyps. PATHOLOGY: Diagnosis Colon, descending, polypectomy: Fragments of tubular adenoma; negative for high- grade dysplasia or carcinoma TODAY'S VISIT Patient is here today for follow-up and to discuss colonoscopy results. Patient denies any ill effects from the prep, anesthesia or procedure itself. Still reports a right lower quadrant cramping occasionally. Patient feels like the pain is there almost all the time. Colonoscopy did not show any inflammation. Cecum was normal. Two polyps in ascending and descending colon. Both tubular adenoma without high-grade dysplasia or carcinoma. Patient reports that she is moving her bowels well now that she is taking senna. Denies melena, however she reports that occasionally will have a blood in her stools after straining. Patient reports occasional nausea depending on what she eats. Patient denies any dyspepsia, dysphagia or odynophagia. [facility] Medical History Hypertension Dysautonomia Cervical spondylarthritis IBS (irritable bowel syndrome) Seizure disorder Syncope Cervical spondylosis with radiculopathy Cervical radiculopathy Cervical strain Neck pain Hematoma following procedure Calf pain Incisional pain Postoperative bleeding from incision Cellulitis Anemia Anxiety with depression Fatty liver Back pain Arthritis Abscess or cellulitis of knee Skin laxity Hyperlipidemia GERD (gastroesophageal reflux disease) COVID-19 vaccine administered Postlaminectomy syndrome Bunion of left foot Postconcussion syndrome Labral tear of right hip joint Spinal stenosis Colon polyps Allergic rhinitis Herpes Chronic sinusitis Depression Migraines Asthma Hypotension Malabsorption due to intolerance, not elsewhere classified Surgical History Hx of spinal fusion S/P plastic surgery S/P panniculectomy History of hip surgery History of endometrial ablation S/P tonsillectomy S/P bilateral foot surgery History of appendectomy H/O colonoscopy H/O endoscopy S/P laparoscopic sleeve gastrectomy H/O laminectomy Family History Father No problems noted. Mother Cervical spine tumor Brother No problems noted. Brother No problems noted. Brother No problems noted. Brother No problems noted. Sister Mental health disorder Son No problems noted. Daughter No problems noted. Social History Household Members: Spouse Housing: House Are you a primary home health care physician to a significant other at home: No Do you presently have visiting nurse or other home services: No Alcohol intake: former Comment: count correct Patient Tobacco Use Status: Never used Tobacco e-Cigarette/Vaping Use: Never Used Second Hand Smoke Exposure: No Substance Use Type: Marijuana Advance Directives Date on File: 10/28/23 service: No Current occupational status: disabled Cognitive needs: No Hearing needs: No Vision needs: No Review of Systems Const Denies weight gain and Denies weight loss ENT Reports no additional complaints, Denies dysphagia and Denies odynophagia Card Reports no additional complaints Resp Reports no additional complaints GI Reports abdominal pain (RLQ), Denies belching, Denies melena, Reports bloating, Denies change in bowel habits, Denies dysphagia, Denies excessive flatus, Denies dyspepsia, Denies heartburn, Denies diarrhea, Denies loose stools, Reports nausea, Denies odynophagia and Denies vomiting Reports no additional complaints Musc Reports no additional complaints Neuro Reports no additional complaints Psych Reports no additional complaints Endo Reports no additional complaints Physical Exam Vital Signs: Last Vital Signs Pulse 70 01/19/25 08:12 BP 112/74 01/19/25 08:12 Pulse Ox 97 01/19/25 08:12 Oxygen Delivery Method Room Air 01/19/25 08:12 BMI result Body Mass Index 23.2 Const General: healthy appearing, no acute distress and well developed Nutritional Appearance: well nourished Orientation/consciousness: patient oriented x3 Resp Effort & Inspection: normal respiratory effort, able to speak in complete sentences, no tracheal deviation and symmetric chest movement Auscultation: clear to auscultation bilaterally Cardio Rate: regular rate GI Inspection: Yes normal to inspection and No distended Palpation (GI): Soft to palpation, not firm, nontender and No hepatosplenomegaly present Auscultation: normal bowel sounds General: Yes no CVA tenderness Back/Spine/Pelvis Back: no CVA tenderness Skin General skin exam: elasticity normal, turgor normal and dry skin Neuro General: patient oriented x3 Psych Appearance: grossly normal Mental Status: mental status grossly normal Assessment & Plan Assessment & Plan (1) GERD (gastroesophageal reflux disease): Code(s): K21.9 - Gastro-esophageal reflux disease without esophagitis Category: Medical Qualifiers: Esophagitis presence: esophagitis presence not specified Qualified Code(s): K21.9 - Gastro-esophageal reflux disease without esophagitis (2) Fatty liver: Code(s): K76.0 - Fatty (change of) liver, not elsewhere classified Category: Medical (3) IBS (irritable bowel syndrome): Code(s): K58.9 - Irritable bowel syndrome, unspecified Category: Medical Qualifiers: Irritable bowel syndrome type: with both diarrhea and constipation Qualified Code(s): K58.2 - Mixed irritable bowel syndrome (4) Nausea: Code(s): R11.0 - Nausea Plan Patient will have a colonoscopy in 3 years, sooner if clinically necessary. Patient will continue taking senna daily. Patient reports occasional epigastric pain postprandially and nausea. She can start taking Pepcid daily. Avoid dietary triggers and late night snacking. Staying upright for minimum 3 hours after meals discussed with patient. Patient reports occasional right lower quadrant pain. Reports abdominal bloating. Most likely gas trapping pain. Patient had normal exam. No tenderness. Increase fluid intake and activity to promote bowel motility. Follow-up in the office in 6 months. Patient will call us if she will have any GI concerning symptoms. She is agreeable to this plan and verbalizes understanding of instructions. She was given the opportunity to ask questions and all questions answered. Thank you for allowing me to participate in her care Medications: New famotidine (Pepcid) 20 mg PO BEDTIME 30 tabs 3RF K21.9 - Gastro-esophageal reflux disease without esophagitis ondansetron 4 mg PO Q8H PRN 20 tabs 0RF nausea and vomiting R11.0 - Nausea Refilled sennosides (Natural Senna Laxative) 17.2 mg (2 x 8.6 mg) PO BEDTIME 180 tabs 3RF constipation K59.00 - Constipation, unspecified Coding Level of Care Code Est Pt Level 4 (05442) Diagnoses Gastroesophageal reflux disease, unspecified whether esophagitis present K21.9 Esophagitis presence: esophagitis presence not specified Fatty liver K76.0 Irritable bowel syndrome with both constipation and diarrhea K58.2 Irritable bowel syndrome type: with both diarrhea and constipation Nausea R11.0 Time Spent (min) 35 Comment 25 minutes spent with patient and additional 10 minutes spent reviewing her records
[2025-01-19 08:12] VITALS: BP 112/74; PULSE 70; O2SAT 97; BMI 23.2
== END 2025-01-19 08:34 | disposition home or self-care (01) ==
PROVIDERS: PCP Internal Medicine; Visit Provider Nurse Practitioner Family
DX: K21.9 Gastro-esophageal reflux disease without esophagitis (principal); K76.0 Fatty (change of) liver, not elsewhere classified; K58.2 Mixed irritable bowel syndrome; R11.0 Nausea
CPT/HCPCS: 99214

== ENCOUNTER → 2025-01-19 07:42 | Outpatient (BNVA) | payer OTHER, SELFPAY | PROVIDERS: PCP Internal Medicine; Visit Provider Nurse Practitioner Family | DX: K21.9 Gastro-esophageal reflux disease without esophagitis (principal); K58.2 Mixed irritable bowel syndrome; K76.0 Fatty (change of) liver, not elsewhere classified; R11.0 Nausea | CPT/HCPCS: 99212 ==